=== PATIENT | female | born 1965 | race Caucasian/White ===

== ENCOUNTER 2018-01-29 20:18 | Observation (INO) | payer OTHER ==
[2018-01-29 22:20] LABS: Glucose,Whole Blood 166 mg/dL (75-99)
[2018-01-29] MEDS ORDERED: ONDANSETRON 4 MG/2 ML VIAL IVP PRN (22:21)
[2018-01-29] MEDS ORDERED: ACETAMINOPHEN TAB 325 MG TAB PO PRN (22:21)
[2018-01-29] MEDS ORDERED: ALPRAZolam 0.25 MG TAB PO PRN (22:21)
[2018-01-29] MEDS ORDERED: NALOXONE 0.4 MG/ML 1 ML VIAL IV PRN (22:21)
[2018-01-29] MEDS ORDERED: TEMAZEPAM 15 MG CAP PO PRN (22:21)
[2018-01-29] MEDS ORDERED: VANCOMYCIN IV PER PHARMACY 1 EACH MISC MISCELLANE PRN (22:23)
[2018-01-29 22:48] LABS: Anisocytosis Slight; Basophils # (A) 0.1 k/uL (0-0.2); Basophils % (A) 1 %; Eosinophils # (A) 0.6 k/uL (0-0.7); Eosinophils % (A) 7 %; HGB 11.4 gm/dL (11.4-16.0); Lymphocytes # (A) 2.7 k/uL (1.0-4.8); Lymphocytes % (A) 31 %; MCH 27.9 pg (25.0-35.0); MCHC 32.5 g/dL (31.0-37.0); Mean Platelet Volume 8.9; Monocytes # (A) 0.6 k/uL (0-1.0); Monocytes % (A) 7 %; Neutrophils # (A) 4.5 k/uL (1.3-7.7); Neutrophils % (A) 52 %; Platelet Count 143 k/uL (150-450); RBC 4.07 m/uL (3.80-5.40); RDW 16.2 % (11.5-15.5); WBC 8.7 k/uL (3.8-10.6)
[2018-01-29 22:56] LABS: ALT 49 U/L (9-52); AST 52 U/L (14-36); Albumin 3.1 g/dL (3.5-5.0); Alkaline Phosphatase 102 U/L (38-126); Anion Gap 9 mmol/L; Blood Urea Nitrogen 16 mg/dL (7-17); Calcium 8.9 mg/dL (8.4-10.2); Carbon Dioxide 27 mmol/L (22-30); Chloride 102 mmol/L (98-107); Glucose 167 mg/dL (74-99); Potassium 4.1 mmol/L (3.5-5.1); Sodium 138 mmol/L (137-145); Total Bilirubin 0.8 mg/dL (0.2-1.3)
[2018-01-29] MEDS ORDERED: DOCUSATE 100 MG CAP PO PRN (23:09)
[2018-01-30] MEDS: LEVOFLOXACIN 500MG-D5W PMX 500 MG in DEXTROSE/WATER 1 100ML.BAG IVPB SCH ×2 (00:06→23:50)
[2018-01-30] MEDS: SODIUM CHLORIDE 0.9% 1,000 ML IV SCH ×2 (00:06→23:48)
[2018-01-30] MEDS: HEPARIN SODIUM,PORCINE 5,000 UNIT/ML 1 ML VIAL SQ SCH ×3 (00:07→21:56)
[2018-01-30 00:08] LABS: Appearance,Urine Clear (Clear); Bilirubin,Urine Negative (Negative); Blood,Urine Negative (Negative); Color,Urine Yellow; Glucose,Urine (UA) Negative (Negative); Ketones,Urine Negative (Negative); Leukocyte Esterase,Urine Negative (Negative); Nitrite,Urine Negative (Negative); PH, Urine 5.5 (5.0-8.0); Protein,Urine Negative (Negative); Specific Gravity,Urine 1.016 (1.001-1.035)
[2018-01-30] MEDS: VENLAFAXINE HCL 75 MG TAB PO SCH ×2 (00:11→21:56)
[2018-01-30] MEDS: DULoxetine HCL 60 MG CAPSULE.DR PO SCH ×3 (00:11→21:56)
[2018-01-30] MEDS: PREGABALIN 75 MG CAP PO SCH ×3 (00:11→21:55)
[2018-01-30] MEDS: GABAPENTIN 400 MG CAP PO SCH ×4 (00:11→21:56)
[2018-01-30] MEDS: ALPRAZolam 0.5 MG TAB PO SCH ×4 (00:11→21:56)
[2018-01-30] MEDS: VANCOMYCIN 2,000 MG in SODIUM CHLORIDE 0.9% 500 ML IVPB SCH ×2 (02:47→16:45)
--- NOTE | 2018-01-30 05:49 | HP ---
HISTORY AND PHYSICAL DATE OF SERVICE: 01/29/2018 CHIEF COMPLAINT: Bilateral heel ulcers. HISTORY OF PRESENT ILLNESS: This 53-year-old woman with a past medical history of diabetes, GERD, hypertension, DJD, history of depression, being followed by Dr. Sima Lopez in the outpatient setting presented to [facility] with complaints of bilateral heel ulcers. The patient apparently noted heel ulcers for the last 1 week which increase in severity. Patient also complaining of some pain also. The patient had limited mobility according to her. There is no history of any fever, rigors. No history of headache, loss of consciousness or seizures. Patient also had insulin pump being followed by Dr. Cid at this time. The patient was directly transferred to [facility] for further evaluation at this time. PAST MEDICAL HISTORY: Diabetes, GERD, hypertension, DJD, history of depression, section. MEDICATIONS: The medications are: 1. Zestril 10 mg p.o. daily. 2. Hydrochlorothiazide 25 mg p.o. daily. 3. Ranitidine 150 mg at bedtime. 4. Lyrica 75 mg p.o. b.i.d. 5. Pravachol 20 mg at bedtime. 6. Metformin 1000 mg p.o. b.i.d. 7. Venlafaxine 75 mg at bedtime. 8. Colace 100 mg daily p.r.n. 9. Cymbalta 60 mg p.o. b.i.d. 10.Neurontin 400 mg p.o. t.i.d. 11.Lasix 20 mg daily. 12.Abilify 5 mg p.o. b.i.d. 13.Xanax 0.5 t.i.d. 14.Victoza, dose unknown. ALLERGIES: CEPHALEXIN. FAMILY HISTORY: History of myocardial infarction in the family. SOCIAL HISTORY: Previous history of smoking. No history of current smoking or alcohol intake. REVIEW OF SYSTEMS: ENT: No diminished hearing or diminished vision. CARDIOVASCULAR: No angina. RESPIRATORY: No cough or hemoptysis. GI: No nausea. : No dysuria. NERVOUS SYSTEM: No numbness or weakness. ALLERGY/IMMUNOLOGY: No asthma or hayfever. MUSCULOSKELETAL: As mentioned earlier. HEMATOLOGY: No history anemia. ENDOCRINE: Diabetes mellitus. CONSTITUTIONAL: As mentioned earlier. DERMATOLOGY: As mentioned earlier RHEUMATOLOGY: Negative. PSYCHIATRIC: As mentioned earlier. PHYSICAL EXAMINATION: The patient is alert and oriented x3. Pulse is 81, blood pressure 131/66, respirations 16, temperature 98 degrees, pulse ox 97% on room air. HEENT: Conjunctivae normal. Oral mucosa moist. Neck is no jugular venous distention. No carotid bruit. No lymph node enlargement. CARDIOVASCULAR: S1 and S2, muffled. No S3, no S4. RESPIRATORY: Breath sounds diminished at the bases. A few scattered rhonchi. No crackles. ABDOMEN: Soft, obese, nontender. LEGS: Bilateral heel ulcers with some necrotic skin area also present. Some black discoloration also present. NERVOUS SYSTEM: Higher functions as mentioned earlier. Moves all 4 limbs. No focal motor deficit. LYMPHATICS: No lymphadenopathy of the neck, axillae or groin. SKIN: As mentioned earlier. JOINTS: No active deforming arthropathy. LABS: CBC within normal limits. Glucose 167. ASSESSMENT: 1. Bilateral heel ulcers with diabetic foot. 2. Diabetes mellitus type 2. 3. Gastroesophageal reflux disease. 4. Hypertension. 5. Degenerative joint disease. 6. Insulin pump. 7. Depression. 8. Super morbid obesity with a body mass index of 57.5. 9. History of depression. 10.History of nicotine dependence. RECOMMENDATIONS AND DISCUSSION: This 53-year-old woman who presented with multiple complex medical issues, we will monitor the patient closely. Continue the current medications. I would initiate broad- spectrum IV antibiotics and vancomycin will be continued. Will add Levaquin to the current regimen. Obtain cultures. Resume the home medications. Monitor blood sugars closely. DVT prophylaxis. We will consult Infectious Disease as well as Vascular Surgery. Guarded prognosis because of multiple complex medical issues. Further recommendation to follow. Copy of dictation forwarded to Sima Lopez who is following the patient in the outpatient setting. MMODL / IJN: [id number] / JAMIL
[2018-01-30 06:59] LABS: Glucose,Whole Blood 103 mg/dL (75-99)
[2018-01-30] MEDS: INSULIN ASPART 100 UNIT/ML 1 ML 10 ML VIAL SQ SCH ×4 (07:06→21:53)
[2018-01-30] MEDS: LISINOPRIL 10 MG TAB PO SCH (08:22)
[2018-01-30] MEDS: FUROSEMIDE 20 MG TAB PO SCH (08:22)
[2018-01-30] MEDS: metFORMIN 500 MG TAB PO SCH ×2 (08:22→21:56)
[2018-01-30] MEDS: ARIPiprazole 5 MG TAB PO SCH ×2 (08:22→21:56)
[2018-01-30] MEDS: HYDROCHLOROTHIAZIDE 25 MG TAB PO SCH (08:22)
[2018-01-30] MEDS: PANTOPRAZOLE 40 MG TABLET PO SCH (08:22)
[2018-01-30 08:51] LABS: Anisocytosis Slight; Basophils % (A) 0 %; Eosinophils # (A) 0.5 k/uL (0-0.7); Eosinophils % (A) 6 %; HCT 37.1 % (34.0-46.0); HGB 11.6 gm/dL (11.4-16.0); Lymphocytes # (A) 2.1 k/uL (1.0-4.8); Lymphocytes % (A) 25 %; MCH 27.5 pg (25.0-35.0); MCHC 31.3 g/dL (31.0-37.0); MCV 87.8 fL (80.0-100.0); Monocytes # (A) 0.5 k/uL (0-1.0); Monocytes % (A) 6 %; Neutrophils # (A) 5.1 k/uL (1.3-7.7); Neutrophils % (A) 61 %; Platelet Count 159 k/uL (150-450); RBC 4.22 m/uL (3.80-5.40); RDW 16.4 % (11.5-15.5); WBC 8.5 k/uL (3.8-10.6)
[2018-01-30 09:09] LABS: Anion Gap 8 mmol/L; Blood Urea Nitrogen 17 mg/dL (7-17); Calcium 8.9 mg/dL (8.4-10.2); Carbon Dioxide 29 mmol/L (22-30); Chloride 102 mmol/L (98-107); Glucose 94 mg/dL (74-99); Potassium 4.3 mmol/L (3.5-5.1); Sodium 139 mmol/L (137-145)
[2018-01-30 11:45] LABS: Glucose,Whole Blood 110 mg/dL (75-99)
[2018-01-30] MEDS: traMADol 50 MG TAB PO PRN ×2 (12:21→21:55)
[2018-01-30 13:27] LABS: Hemoglobin A1C 7.3 % (4.0-6.0)
[2018-01-30 13:52] VITALS: BMI 57.4
[2018-01-30] MEDS ORDERED: LIDOCAINE 1% (PF) 10MG/ML VIAL SQ STA (17:13)
[2018-01-30] MEDS ORDERED: LIDOCAINE 1% INJ 10MG/ML (20 ML MDV) SQ STA (17:23)
[2018-01-30 17:25] LABS: Glucose,Whole Blood 95 mg/dL (75-99)
[2018-01-30] MEDS: COLLAGENASE 250 UNIT/GM OINTMENT 30 GM TUBE TOPICAL SCH (17:59)
--- NOTE | 2018-01-30 18:02 | PN ---
PROGRESS NOTE DATE OF SERVICE: 01/30/2018 This 53-year-old woman was admitted with acute bilateral heel ulcers from diabetes, is being closely monitored. No chest pain or palpitations. broad-spectrum IV antibiotics. EXAM: Alert and oriented x3. Pulse 81, blood pressure 120/55, respirations 18, temperature 97.2, pulse ox 96% on room air. HEENT: Conjunctivae normal. Oral mucosa moist. NECK: No jugular venous distention. No carotid bruits. No lymph node enlargement. CARDIOVASCULAR: S1, S2 muffled. RESPIRATORY: Breath sounds diminished in the bases. No rhonchi. No crackles. ABDOMEN: Soft, obese. LEGS: Bilateral heel ulcers. NERVOUS SYSTEM: No focal deficits. LABS: WBC 8.5. ASSESSMENT: 1. Bilateral heel ulcers with diabetic foot. 2. Diabetes mellitus type 2. 3. Gastroesophageal reflux disease. 4. Hypertension. 5. History of degenerative joint disease. 6. Insulin pump. 7. Depression. 8. Morbid obesity with a body mass index of 57.5. 9. History of depression. 10.History of nicotine dependence. RECOMMENDATIONS AND DISCUSSION: Recommend to continue current medical management and continue with broad- spectrum IV antibiotics. Closely follow with Infectious Disease and follow up with Vascular Surgery as well. Otherwise, prognosis guarded because of multiple complex medical issues. Further recommendations to follow. MMODL / IJN: [id number] / MTDGale
--- NOTE | 2018-01-30 18:32 | CONS ---
CONSULTATION This is a 53-year-old female. She came with one week's duration of pressure ulcer, right heel. She has history of diabetes, obesity. The patient has been admitted and I was consulted. No history of trauma. MEDICAL HISTORY: History of diabetes, hypertension. PERSONAL HISTORY: ALLERGY to KEFLEX. On examination, neck is supple. Trachea is central. CHEST: Clear to auscultation. ABDOMEN: Soft. Brachial and radial pulses are present. Femoral pulses are present. Right heel has skin necrosis with some redness around the periwound area. The skin is necrotic and the measurement is 5 x 4 cm. PLAN: Debridement of the wound. Will take deep culture and use Santyl cream. MMODL / IJN: [id number] /
[2018-01-30 20:27] LABS: Glucose,Whole Blood 103 mg/dL (75-99)
[2018-01-30] MEDS: FAMOTIDINE 20 MG TAB PO SCH (21:56)
[2018-01-30] MEDS: PRAVASTATIN SODIUM 20 MG TAB PO SCH (21:56)
[2018-01-31] MEDS: VANCOMYCIN 2,000 MG in SODIUM CHLORIDE 0.9% 500 ML IVPB SCH ×2 (02:08→15:15)
[2018-01-31 02:33] LABS: Glucose,Whole Blood 60 mg/dL (75-99)
[2018-01-31 02:56] LABS: Glucose,Whole Blood 70 mg/dL (75-99)
--- NOTE | 2018-01-31 06:09 | CONS ---
CONSULTATION DATE OF SERVICE: 01/30/2018. REASON FOR CONSULTATION: Bilateral heel diabetic pressure ulcer with cellulitis. HISTORY OF PRESENT ILLNESS: The patient is a 53 -year-old female, morbidly obese with a past medical history significant for diabetes mellitus, presenting to the ER at the [facility] with bilateral heel ulcers. Apparently the patient noticed the ulcer about a week ago. The patient did not recall any new shoes or any change in the walking habits that has brought on those blisters or ulceration. With worsening of those areas and bilateral heel and subsequently currently 1 of those blisters opened on the right heel with drainage of some foul smelling secretion with subsequent swelling and redness surrounding the area with some dull aching pain 2 to 3 out of 10, and no radiation. The patient denies having any fever, rigors or chills. Subsequently, patient has been evaluated at that facility and has been transferred to the [facility] for further management of the same. Infectious Disease was consulted for recommendations regarding antibiotic therapy. REVIEW OF SYSTEMS: CONSTITUTIONAL: Positive for weakness. Denies any fever. Eyes no complaint. ENT no complaint. Respiratory no complaint. Cardiovascular no complaint. ENT is no complaint. Chest: No complaint. Gastrointestinal: No complaint. Musculoskeletal as per HPI. Integumentary as per HPI. Psychological no complaint. Endocrine no complaint. Neurologic no complaint. PAST MEDICAL HISTORY: Significant for diabetes mellitus, gastroesophageal reflux disease, hypertension , degenerative joint disease and depression. PAST SURGICAL HISTORY: . SOCIAL HISTORY: The patient denies drinking or drug use. Did have a remote history of smoking. FAMILY HISTORY: Positive for IA. ALLERGIES: CEPHALEXIN that make more of GI side effects. No history of rash. Clinically doubt true CEPHALEXIN ALLERGY. MEDICATION: Medications include the patient is currently on Tylenol, Xanax, Abilify, Santyl, Colace, Cymbalta, Pepcid, Lasix, Neurontin, heparin, hydrochlorothiazide, Levaquin, Zestril, Glucophage, Narcan, Pravachol, and vancomycin. EXAMINATION: Blood pressure is 129/55 with a pulse of 81, temperature 97.2. She is 93% on room air. General description is a middle aged female lying in bed in no distress. No tachypnea or accessory muscles of respiration use. HEENT: Shows no pallor or scleral icterus. Oral mucosa membranes dry. No pharyngeal erythema or thrush. Neck trachea central, no thyromegaly. Lungs unlabored breathing. Clear to auscultation anteriorly. No wheeze or crackles. Heart S1, S2. Regular rate and rhythm. ABDOMEN: Soft, no tenderness. No guarding or rigidity. Extremities: No edema of the feet. Examination of bilateral heel area did have a blisters with some necrotic area. Minimal surrounding erythema. Minimal foul smelling drainage. Neurological: Patient is awake, alert, oriented. Mood and affect normal. LABS: Hemoglobin 11.4, white count 8.5. BUN of 17, creatinine 0.58. DIAGNOSTIC IMPRESSION AND PLAN: 1. Patient with bilateral heel diabetic foot ulcer with secondary cellulitis with some foul-smelling drainage, likely polymicrobial infection. 2. Patient does have a CEPHALEXIN ALLERGY, more of gastrointestinal upset rather than true allergy. PLAN: 1. We will recommend surgical evaluation for debridement of this necrotic skin. For now we will apply dressing to be lightly applied. 2. The patient will continue on vancomycin, pharmacy to dose to continue while watching the kidney function closely along with Levaquin. 3. Depending upon clinical response as well as cultures, we will adjust her medications further if needed. Thank you for this consultation. We will follow this patient along with you. MMODL / IJN: [id number] / MTDD
[2018-01-31] MEDS: INSULIN PUMP MEAL BOLUS 1 UNIT MISC MISCELLANE SCH ×4 (07:00→21:03)
[2018-01-31 07:26] LABS: Glucose,Whole Blood 76 mg/dL (75-99)
[2018-01-31] MEDS: INSULIN ASPART 100 UNIT/ML 1 ML 10 ML VIAL SQ SCH (07:35)
[2018-01-31 07:36] LABS: Anisocytosis Slight; Basophils % (A) 1 %; Eosinophils # (A) 0.5 k/uL (0-0.7); Eosinophils % (A) 6 %; HCT 35.4 % (34.0-46.0); HGB 11.3 gm/dL (11.4-16.0); Lymphocytes # (A) 2.6 k/uL (1.0-4.8); Lymphocytes % (A) 31 %; MCH 27.7 pg (25.0-35.0); MCHC 31.8 g/dL (31.0-37.0); MCV 87.1 fL (80.0-100.0); Mean Platelet Volume 7.8; Monocytes # (A) 0.5 k/uL (0-1.0); Monocytes % (A) 5 %; Neutrophils # (A) 4.7 k/uL (1.3-7.7); Neutrophils % (A) 55 %; Platelet Count 162 k/uL (150-450); RBC 4.07 m/uL (3.80-5.40); RDW 16.4 % (11.5-15.5); WBC 8.5 k/uL (3.8-10.6)
[2018-01-31 07:53] LABS: Anion Gap 10 mmol/L; Blood Urea Nitrogen 20 mg/dL (7-17); Calcium 8.8 mg/dL (8.4-10.2); Carbon Dioxide 27 mmol/L (22-30); Chloride 102 mmol/L (98-107); Glucose 71 mg/dL (74-99); Sodium 139 mmol/L (137-145)
[2018-01-31] MEDS: metFORMIN 500 MG TAB PO SCH ×2 (07:56→21:07)
[2018-01-31] MEDS: FUROSEMIDE 20 MG TAB PO SCH (07:56)
[2018-01-31] MEDS: GABAPENTIN 400 MG CAP PO SCH ×3 (07:56→21:07)
[2018-01-31] MEDS: PANTOPRAZOLE 40 MG TABLET PO SCH (07:56)
[2018-01-31] MEDS: LISINOPRIL 10 MG TAB PO SCH (07:56)
[2018-01-31] MEDS: DULoxetine HCL 60 MG CAPSULE.DR PO SCH ×2 (07:56→21:07)
[2018-01-31] MEDS: HYDROCHLOROTHIAZIDE 25 MG TAB PO SCH (07:57)
[2018-01-31] MEDS: ALPRAZolam 0.5 MG TAB PO SCH ×3 (07:57→21:06)
[2018-01-31] MEDS: ARIPiprazole 5 MG TAB PO SCH ×2 (07:57→21:07)
[2018-01-31] MEDS: PREGABALIN 75 MG CAP PO SCH ×2 (07:58→21:06)
[2018-01-31] MEDS: HEPARIN SODIUM,PORCINE 5,000 UNIT/ML 1 ML VIAL SQ SCH ×2 (07:58→21:07)
--- NOTE | 2018-01-31 09:09 | PCN ---
PROCEDURE NOTE PREOP DIAGNOSIS: Pressure ulcer right heel with skin necrosis. PROCEDURE PERFORMED: Debridement of the right heel pressure ulcer under local. DESCRIPTION OF PROCEDURE: This patient has a history of skin necrosis of the right heel. She has history of diabetes, obesity. No history of trauma. The patient has a right heel skin necrosis. Measurement is 5 x 4 cm. 1% lidocaine was infiltrated. Using a sharp knife, we excised the skin and necrotic skin was removed by the sharp knife and there was some fibrinous material present in the heel area which was also excised. Underneath we found decent granulation tissue and took the deep culture, sent for culture and sensitivity. The wound was copiously irrigated with the saline. Then Santyl cream applied to the wound and pressure and dressing was applied. The patient tolerated the procedure well. No blood loss noted. There was good hemostasis. PLAN: We continue with Santyl cream and patient is on IV antibiotic under care of Infectious Disease. When patient goes home, will follow in the wound clinic. The patient will need a total contact cast. MMODL / IJN: [id number] /
[2018-01-31 10:07] LABS: Glucose,Whole Blood 124 mg/dL (75-99)
[2018-01-31] MEDS: COLLAGENASE 250 UNIT/GM OINTMENT 30 GM TUBE TOPICAL SCH (11:15)
[2018-01-31 11:43] LABS: Glucose,Whole Blood 122 mg/dL (75-99)
[2018-01-31] MEDS ORDERED: INSULIN ASPART 100 UNIT/ML 1 ML 10 ML VIAL SQ PRN (14:48)
[2018-01-31] MEDS ORDERED: INSULIN PUMP BASAL RATES 1 EACH MISC MISCELLANE PRN (14:48)
[2018-01-31 17:15] LABS: Glucose,Whole Blood 114 mg/dL (75-99)
--- NOTE | 2018-01-31 19:57 | PN ---
PROGRESS NOTE DATE OF SERVICE: 01/31/2018 This 53-year-old woman was admitted with bilateral heel ulcers, is being closely monitored at this time. The patient is on broad-spectrum IV antibiotics. Dr. Mcdonald has performed debridement of the right heel ulcer under local anesthesia. Otherwise, the patient is also seen by Infectious Disease, Dr. Garrett. The necrotic skin has been removed and the patient is currently on IV Levaquin and vancomycin as mentioned earlier. The culture showed group D Enterococcus and gram-negative as at this time. No chest pain. No palpitations. No fever. EXAM: Alert and oriented x3. Pulse is 80, blood pressure 127/60, respirations 18, temperature 97.9, pulse ox 94% on room air. HEENT: Conjunctivae normal. NECK: No jugular venous distention. CARDIOVASCULAR: S1, S2 muffled. RESPIRATORY: Breath sounds diminished in the bases. No rhonchi. No crackles. ABDOMEN: Soft, nontender. LEGS: No edema. No swelling. Otherwise, bilateral heel ulcers NERVOUS SYSTEM: No focal deficits. LABS: WBC 8.2, hemoglobin is 11.3. Accu-Cheks noted. ASSESSMENT: 1. Bilateral heel ulcers with diabetic feet with culture showing group D Enterococcus and gram-negative bacilli. 2. Diabetes mellitus type 2. 3. Gastroesophageal reflux disease. 4. Hypertension. 5. History of degenerative joint disease. 6. Insulin pump. 7. Depression. 8. Morbid obesity with a body mass index of 57.5. 9. History of depression. 10.History of nicotine dependence. RECOMMENDATIONS AND DISCUSSION: Recommend to continue current medical management and continue symptomatic treatment. Continue with the IV antibiotics. Continue with the local treatment. Otherwise will continue to follow with Infectious Disease as well as Vascular Surgery. Guarded prognosis because of multiple complex medical issues. Further recommendations to follow. MMODL / IJN: [id number] /
[2018-01-31] MEDS: traMADol 50 MG TAB PO PRN (21:06)
[2018-01-31] MEDS: FAMOTIDINE 20 MG TAB PO SCH (21:07)
[2018-01-31] MEDS: PRAVASTATIN SODIUM 20 MG TAB PO SCH (21:07)
[2018-01-31] MEDS: VENLAFAXINE HCL 75 MG TAB PO SCH (21:07)
[2018-01-31 21:18] LABS: Glucose,Whole Blood 72 mg/dL (75-99)
--- NOTE | 2018-01-31 22:54 | PN ---
PROGRESS NOTE DATE OF SERVICE: 01/31/2018. REASON FOR FOLLOWUP: Bilateral diabetic foot ulcer. INTERVAL HISTORY: The patient is afebrile. She is breathing comfortably. Denies having any chest pain, shortness of breath, cough. No abdominal pain or any pain to the bilateral heel wound area. EXAMINATION: Blood pressure is 127/60 with a pulse of 80, temperature 97.9. She is 94% on room air. General description is a middle-aged female lying in bed in no distress. Respiratory system: Unlabored breathing. Clear to auscultation anteriorly. HEART: S1, S2. Regular rate and rhythm. Abdomen soft, no tenderness. Heel wounds are currently dressed up. No obvious drainage on the dressing. LABS: White count is 8.5, creatinine 0.77. Wound culture with Streptococcus Agalactiae and Group B enterococcus. DIAGNOSTIC IMPRESSION AND PLAN: Patient with bilateral heel diabetic foot ulcer with skin cellulitis with cultures did show Streptococcus agalactiae in a patient currently covered with Levaquin and vancomycin because of present allergy. We will wait for culture and sensitivity to determine discharge antibiotics. Continue wound care per Surgery. Continue supportive care. MMODL / IJN: [id number] / JAMIL
[2018-01-31] MEDS: LEVOFLOXACIN 500MG-D5W PMX 500 MG in DEXTROSE/WATER 1 100ML.BAG IVPB SCH (23:20)
[2018-01-31] MEDS: SODIUM CHLORIDE 0.9% 1,000 ML IV SCH (23:37)
[2018-02-01 02:03] LABS: Glucose,Whole Blood 66 mg/dL (75-99)
[2018-02-01 02:29] LABS: Glucose,Whole Blood 66 mg/dL (75-99)
[2018-02-01] MEDS: VANCOMYCIN 2,000 MG in SODIUM CHLORIDE 0.9% 500 ML IVPB SCH ×2 (02:37→16:33)
[2018-02-01 02:43] LABS: Glucose,Whole Blood 80 mg/dL (75-99)
[2018-02-01 07:34] LABS: Glucose,Whole Blood 76 mg/dL (75-99)
[2018-02-01] MEDS: ALPRAZolam 0.5 MG TAB PO SCH ×3 (07:59→21:28)
[2018-02-01] MEDS: GABAPENTIN 400 MG CAP PO SCH ×2 (07:59→16:32)
[2018-02-01] MEDS: metFORMIN 500 MG TAB PO SCH ×2 (08:00→21:28)
[2018-02-01] MEDS: HEPARIN SODIUM,PORCINE 5,000 UNIT/ML 1 ML VIAL SQ SCH ×2 (08:00→21:28)
[2018-02-01] MEDS: COLLAGENASE 250 UNIT/GM OINTMENT 30 GM TUBE TOPICAL SCH (08:00)
[2018-02-01] MEDS: FUROSEMIDE 20 MG TAB PO SCH (08:00)
[2018-02-01] MEDS: DULoxetine HCL 60 MG CAPSULE.DR PO SCH ×2 (08:00→21:28)
[2018-02-01] MEDS: ARIPiprazole 5 MG TAB PO SCH ×2 (08:00→21:28)
[2018-02-01] MEDS: PANTOPRAZOLE 40 MG TABLET PO SCH (08:00)
[2018-02-01] MEDS: LISINOPRIL 10 MG TAB PO SCH (08:01)
[2018-02-01] MEDS: HYDROCHLOROTHIAZIDE 25 MG TAB PO SCH (08:01)
[2018-02-01] MEDS: INSULIN PUMP MEAL BOLUS 1 UNIT MISC MISCELLANE SCH ×4 (08:02→21:28)
[2018-02-01] MEDS: PREGABALIN 75 MG CAP PO SCH ×2 (08:04→21:28)
[2018-02-01 08:46] LABS: Anisocytosis Slight; Basophils # (A) 0.1 k/uL (0-0.2); Basophils % (A) 1 %; Eosinophils # (A) 0.6 k/uL (0-0.7); Eosinophils % (A) 8 %; HCT 35.7 % (34.0-46.0); HGB 11.5 gm/dL (11.4-16.0); Lymphocytes # (A) 2.4 k/uL (1.0-4.8); Lymphocytes % (A) 28 %; MCH 28.1 pg (25.0-35.0); MCHC 32.2 g/dL (31.0-37.0); MCV 87.2 fL (80.0-100.0); Monocytes # (A) 0.5 k/uL (0-1.0); Monocytes % (A) 6 %; Neutrophils # (A) 4.8 k/uL (1.3-7.7); Neutrophils % (A) 56 %; Platelet Count 162 k/uL (150-450); RBC 4.09 m/uL (3.80-5.40); RDW 16.4 % (11.5-15.5); WBC 8.6 k/uL (3.8-10.6)
[2018-02-01 09:07] LABS: Anion Gap 11 mmol/L; Blood Urea Nitrogen 19 mg/dL (7-17); Carbon Dioxide 26 mmol/L (22-30); Chloride 103 mmol/L (98-107); Glucose 95 mg/dL (74-99); Potassium 4.1 mmol/L (3.5-5.1); Sodium 140 mmol/L (137-145)
[2018-02-01 11:52] LABS: Glucose,Whole Blood 113 mg/dL (75-99)
[2018-02-01] MEDS ORDERED: VANCOMYCIN TROUGH DUE 1 EACH MISC MISCELLANE ONE (13:00)
[2018-02-01 16:43] LABS: Glucose,Whole Blood 73 mg/dL (75-99)
--- NOTE | 2018-02-01 19:07 | PN ---
PROGRESS NOTE DATE OF SERVICE: 02/01/2018 This 53-year-old woman admitted with bilateral heel ulcers, had multiple organisms grown from the culture including group D Enterococcus and as well agalactiae and also gram-negative bacilli. No chest pain. No palpitations. No fever. Infectious disease and Vascular Surgery are following the patient closely. PHYSICAL EXAM: Alert and oriented times three. Pulse 80. Blood pressure 125/60, respirations 16, temperature 97.9, pulse ox 97% on room air. HEENT: Conjunctivae normal. Oral mucosa moist. Neck is no jugular venous distention. No carotid bruit. No lymph node enlargement. Cardiovascular: S1, S2 muffled. No S3. No S4. RESPIRATORY: Breath sounds diminished in the bases. A few scattered rhonchi and crackles. ABDOMEN: Soft nontender, obese. LEGS: No edema. No swelling. CENTRAL NERVOUS SYSTEM: No focal deficits. EXTREMITIES: Bilateral heel ulcers present. LABS: WBC 8.2, hemoglobin 11.5, glucose 113. ASSESSMENT: 1. Bilateral heel ulcers with diabetic feet with culture showing Group D enterococcus and gram-negative bacilli, Enterobacter cloacae. 2. Diabetes type 2. 3. Gastroesophageal reflux disease. 4. Hypertension. 5. History of degenerative joint disease. 6. History insulin pump. 7. Depression. 8. Morbid obesity with body mass index of 57.5. 9. History of depression. 10.History of nicotine dependence. RECOMMENDATIONS AND DISCUSSION: Recommend to continue current medications. Continue to monitor and symptomatic treatment. Otherwise, at this time, I recommend continue with the antibiotics and strep agalactiae group B and as well as Group D enterococcus has been noted and the Enterobacter cloacae seems to be sensitive to multiple antibiotics. We will continue to monitor and further recommendations to follow. Possibly home with antibiotics. MMODL / IJN: [id number] / JAMIL
[2018-02-01 20:12] LABS: Glucose,Whole Blood 154 mg/dL (75-99)
[2018-02-01] MEDS: traMADol 50 MG TAB PO PRN (20:35)
[2018-02-01] MEDS: FAMOTIDINE 20 MG TAB PO SCH (21:28)
[2018-02-01] MEDS: PRAVASTATIN SODIUM 20 MG TAB PO SCH (21:28)
[2018-02-01] MEDS: VENLAFAXINE HCL 75 MG TAB PO SCH (21:28)
[2018-02-01] MEDS: LEVOFLOXACIN 500MG-D5W PMX 500 MG in DEXTROSE/WATER 1 100ML.BAG IVPB SCH (23:48)
--- NOTE | 2018-02-02 00:10 | PN ---
PROGRESS NOTE DATE OF SERVICE: 02/01/2018. REASON FOR FOLLOWUP: Diabetic foot ulcer with secondary cellulitis. INTERVAL HISTORY: The patient is afebrile. She is breathing comfortably. Denies any chest pain, shortness of breath, abdominal pain, or any worsening pain to the bilateral foot wound area. EXAMINATION: Blood pressure 125/74 with a pulse of 73, temperature 97.4. She is 97% on room air. GENERAL DESCRIPTION: Elderly female, up in the bed in no distress. RESPIRATORY SYSTEMS: Unlabored breathing. Clear to auscultation anteriorly. HEART: Heart S1, S2. Regular rate and rhythm. ABDOMEN: Abdomen soft. EXTREMITIES: Bilateral heel wound with no obvious drainage on the dressing. LABS: Wound culture with Enterobacter, Enterococcus currently pending. DIAGNOSTIC IMPRESSION AND PLAN: Patient with bilateral heel diabetic foot ulcer with secondary cellulitis, currently covered with vancomycin and Levaquin. Sensitivities pending. If sensitive, will be able to switch to oral antibiotic. Continue supportive care. MMODL / IJN: [id number] /
[2018-02-02] MEDS: SODIUM CHLORIDE 0.9% 1,000 ML IV SCH (02:03)
[2018-02-02 02:16] LABS: Glucose,Whole Blood 95 mg/dL (75-99)
[2018-02-02 05:13] VITALS: BP 138/67; PULSE 82; RESP 18; TEMP 98.6
[2018-02-02] MEDS ORDERED: VANCOMYCIN 2,000 MG in SODIUM CHLORIDE 0.9% 500 ML IVPB SCH (08:00)
[2018-02-02 08:10] LABS: Glucose,Whole Blood 96 mg/dL (75-99)
[2018-02-02] MEDS: INSULIN PUMP MEAL BOLUS 1 UNIT MISC MISCELLANE SCH ×2 (08:31→13:14)
[2018-02-02] MEDS: ARIPiprazole 5 MG TAB PO SCH (08:48)
[2018-02-02] MEDS: ALPRAZolam 0.5 MG TAB PO SCH (08:48)
[2018-02-02] MEDS: PANTOPRAZOLE 40 MG TABLET PO SCH (08:48)
[2018-02-02] MEDS: COLLAGENASE 250 UNIT/GM OINTMENT 30 GM TUBE TOPICAL SCH ×2 (08:49→11:21)
[2018-02-02] MEDS: DULoxetine HCL 60 MG CAPSULE.DR PO SCH (08:50)
[2018-02-02] MEDS: HYDROCHLOROTHIAZIDE 25 MG TAB PO SCH (08:51)
[2018-02-02] MEDS: GABAPENTIN 400 MG CAP PO SCH (08:51)
[2018-02-02] MEDS: FUROSEMIDE 20 MG TAB PO SCH (08:51)
[2018-02-02] MEDS: HEPARIN SODIUM,PORCINE 5,000 UNIT/ML 1 ML VIAL SQ SCH (08:51)
[2018-02-02] MEDS: LISINOPRIL 10 MG TAB PO SCH (08:52)
[2018-02-02] MEDS: metFORMIN 500 MG TAB PO SCH (08:52)
[2018-02-02] MEDS: traMADol 50 MG TAB PO PRN (08:52)
[2018-02-02] MEDS: PREGABALIN 75 MG CAP PO SCH (09:03)
[2018-02-02 09:24] LABS: Anisocytosis Slight; Basophils % (A) 0 %; Eosinophils # (A) 0.6 k/uL (0-0.7); Eosinophils % (A) 7 %; HCT 35.2 % (34.0-46.0); HGB 11.5 gm/dL (11.4-16.0); Lymphocytes # (A) 2.7 k/uL (1.0-4.8); Lymphocytes % (A) 30 %; MCH 28.7 pg (25.0-35.0); MCHC 32.7 g/dL (31.0-37.0); MCV 87.7 fL (80.0-100.0); Mean Platelet Volume 7.9; Monocytes # (A) 0.6 k/uL (0-1.0); Monocytes % (A) 6 %; Neutrophils # (A) 4.9 k/uL (1.3-7.7); Neutrophils % (A) 54 %; Platelet Count 174 k/uL (150-450); RBC 4.02 m/uL (3.80-5.40); RDW 16.6 % (11.5-15.5); WBC 9.1 k/uL (3.8-10.6)
[2018-02-02 09:47] LABS: Anion Gap 9 mmol/L; Blood Urea Nitrogen 17 mg/dL (7-17); Calcium 9.1 mg/dL (8.4-10.2); Carbon Dioxide 26 mmol/L (22-30); Chloride 104 mmol/L (98-107); Glucose 94 mg/dL (74-99); Potassium 4.2 mmol/L (3.5-5.1); Sodium 139 mmol/L (137-145)
[2018-02-02 11:41] LABS: Glucose,Whole Blood 208 mg/dL (75-99)
--- NOTE | 2018-02-02 14:32 | PN ---
PROGRESS NOTE DATE OF SERVICE: 02/02/2018 REASON FOR FOLLOWUP: Bilateral heel diabetic foot ulcers. INTERVAL HISTORY: The patient is currently afebrile. She is breathing comfortably. Denies having any chest pain or shortness of no pain or slough. No pain to the bilateral heel area and no diarrhea. PHYSICAL EXAMINATION: Her blood pressure is 138/67 with a pulse of 82, temperature is 97.6, she is 94 on room air. General description is a middle-aged female, up in the bed in no distress. RESPIRATORY SYSTEM: Unlabored breathing, clear to auscultation anteriorly. HEART: S1, S2. Regular rate and rhythm. ABDOMEN: Soft, no tenderness. Bilateral heel wound looks clean with no slough tissue. LABS: Wound culture finalized with Enterococcus faecalis, Enterobacter. DIAGNOSTIC IMPRESSION AND PLAN: Patient with bilateral heel diabetic pressure ulcer. Plan at this time, local wound care will be switched to Aquacel Silver dressing to be changed q.24-48 hours. Patient is [facility]. Antibiotic will be switched to Augmentin and Cipro for about 10 days, a script was sent to the Pharmacy. Continue supportive care. MMODL / IJN: [id number] /
--- NOTE | 2018-02-02 17:14 | DS ---
DISCHARGE SUMMARY DATE OF SERVICE: 02/02/2018. FINAL DIAGNOSES: 1. Bilateral heel ulcers with diabetic feet with culture showing group B Enterococcus and as well as Enterobacter cloacae. 2. Diabetes mellitus type 2. 3. Gastroesophageal reflux disease. 4. Hypertension. 5. History of degenerative joint disease. 6. History insulin pump. 7. History of depression. 8. Morbid obesity with body mass index 57.5. 9. History of nicotine dependence. DISCHARGE DISPOSITION: The patient is being discharged in stable condition with guarded prognosis. HISTORY OF PRESENT ILLNESS: This 53-year-old woman with past medical history of multiple medical problems was admitted with diabetic ulcers and multiple organisms have grown from the cultures. Dr. Mcdonald saw the patient. Debridement was done by Dr. Garrett who also the patient. Vitals are stable. Cardiovascular: S1, S2. Abdomen: Soft. Nervous System: No focal deficits. DISCHARGE ADVICE: 1. Diet is consistent carb. 2. Activity limited until followup. 3. Follow up with Dr. Sima Lopez in 2-3 days. 4. Follow with Dr. Garrett as advised. 5. Follow with Dr. Mcdonald as advised. MEDICATIONS: 1. Xanax 0.5 mg t.i.d. 2. Augmentin 875 mg 1 p.o. b.i.d. for 10 days. 3. Abilify 5 mg p.o. daily. 4. Cipro 500 mg p.o. b.i.d. for 10 days. 5. Colace 100 mg p.o. daily. 6. Cymbalta 60 mg p.o. b.i.d. 7. Lasix 20 mg daily. 8. Neurontin 400 mg t.i.d. 9. Hydrochlorothiazide 25 mg p.o. daily. 10.[place] 10 mg q.6h p.r.n. 11.Humalog scale. Humalog to be adjusted according to the pump. 12.Zestril 10 mg p.o. daily. 13.Metformin 1000 mg p.o. b.i.d. 14.Nystatin 1 application topically daily. 15.Omeprazole 40 mg daily. 16.Zofran 4 mg q.8h p.r.n. 17.Zocor 20 mg q.h.s. 18.Lyrica 75 mg p.o. b.i.d. 19.Ranitidine 150 mg q.h.s. 20.Effexor 75 mg p.o. q.h.s. Once again the patient is discharged in stable condition with guarded prognosis. MMODL / IJN: [id number] /
[2018-02-03] MEDS ORDERED: LEVOFLOXACIN 500 MG TAB PO SCH
== END 2018-02-02 14:49 | disposition home health service (06) ==
LOC: 5MS5E 22:15 → INTOOBSV 22:15 → UNDODISIN 02-02 14:49
PROVIDERS: ADMIT Hospitalist; ATTEND Hospitalist
PROC: 0HBMXZZ Excision of Right Foot Skin, External Approach (ICD-10-PCS; principal; 2018-01-31)
DX: E11.621 Type 2 diabetes mellitus with foot ulcer (principal); Z68.43 Body mass index [BMI] 50.0-59.9, adult; L03.116 Cellulitis of left lower limb; L03.115 Cellulitis of right lower limb; E66.01 Morbid (severe) obesity due to excess calories; L89.612 Pressure ulcer of right heel, stage 2; L89.622 Pressure ulcer of left heel, stage 2; B95.2 Enterococcus as the cause of diseases classified elsewhere; I10 Essential (primary) hypertension; K21.9 Gastro-esophageal reflux disease without esophagitis; F32.9 Major depressive disorder, single episode, unspecified; M19.91 Primary osteoarthritis, unspecified site; Z71.3 Dietary counseling and surveillance; Z79.4 Long term (current) use of insulin; Z79.899 Other long term (current) drug therapy; Z96.41 Presence of insulin pump (external) (internal); Z87.891 Personal history of nicotine dependence; Z88.1 Allergy status to other antibiotic agents; Z82.49 Family history of ischemic heart disease and other diseases of the circulatory system
CPT/HCPCS: 97597; 96365; 96366 ×4; 96367; 96372 ×4; 96375; 93005; 80053; 80048 ×4; 85025 ×5; 80202; 81003; 87070 ×2; 87205 ×2; 87077; 87186; 83036; G0378 ×5; G0379; J3370 ×4; J1644 ×4; J2405; J1956 ×3

== ENCOUNTER 2019-12-06 15:27 | Inpatient (IN) | payer MEDICARE, OTHER ==
--- NOTE | 2019-12-06 15:44 | ED ---
Weakness HPI - General Stated complaint: Weakness/ Altered Time Seen by Provider: 12/06/19 15:37 Source: RN notes reviewed, old records reviewed Mode of arrival: EMS Limitations: altered mental status - History of Present Illness MD Complaint: generalized weakness, lack of energy -: unknown Severity: moderate Severity scale (1-10): 5 Quality: aching Consistency: constant Improves with: none Context: recent illness, history of similar Associated Symptoms: confusion, nausea/vomiting, shortness of breath - Related Data Home Medications Medication Instructions Recorded Confirmed ALPRAZolam [Xanax] 0.5 mg PO TID 01/29/18 12/06/19 ARIPiprazole [Abilify] 5 mg PO DAILY 01/29/18 12/06/19 DULoxetine HCL [Cymbalta] 60 mg PO BID 01/29/18 12/06/19 Gabapentin [Neurontin] 400 mg PO TID 01/29/18 12/06/19 Lisinopril [Zestril] 10 mg PO DAILY 01/29/18 12/06/19 Ondansetron [Zofran] 4 mg PO Q8HR PRN 01/29/18 12/06/19 Pravastatin Sodium [Pravachol] 20 mg PO HS 01/29/18 12/06/19 metFORMIN HCL 1,000 mg PO BID 01/29/18 12/06/19 Famotidine 40 mg PO DAILY 12/06/19 12/06/19 HYDROcodone/APAP 7.5-325MG [[place] 1 tab PO TID PRN 12/06/19 12/06/19 7.5-325] Humulin R 500u/Ml Vial (Pump) 2.3 unit SQ CONTINUOUS 12/06/19 12/06/19 Isosorbide Dinitrate 10 mg PO BID 12/06/19 12/06/19 Liraglutide [Victoza 2-Brenden] 1.8 mg SQ DAILY 12/06/19 12/07/19 Pioglitazone HCl 15 mg PO DAILY 12/06/19 12/06/19 Previous Rx's Medication Instructions Recorded Amoxicillin/Potassium Clav 1 tab PO Q12HR #10 tab 12/09/19 [Augmentin 875-125 Tablet] Nystatin 100,000 Unit/gm Powd 1 applic TOPICAL BID applic 12/09/19 [Mycostatin Powder] Sodium Bicarbonate Tab 650 mg PO TID #30 tab 12/09/19 Allergies Allergy/AdvReac Type Severity Reaction Status Date / Time cephalexin monohydrate AdvReac Nausea & Verified 12/06/19 18:32 [From Keflex] Vomiting Review of Systems ROS Statement: Those systems with pertinent positive or pertinent negative responses have been documented in the HPI. ROS Other: All systems not noted in ROS Statement are negative. Past Medical History Past Medical History: Diabetes Mellitus, GERD/Reflux, Hypertension, Osteoarthritis (OA) Additional Past Medical History / Comment(s): Depression. Super morbid obesity History of Any Multi-Drug Resistant Organisms: None Reported Past Surgical History: Section, Cholecystectomy, Hernia Repair, Hysterectomy Past Anesthesia/Blood Transfusion Reactions: No Reported Reaction Past Psychological History: Depression Smoking Status: Former smoker Past Alcohol Use History: None Reported Past Drug Use History: None Reported - Past Family History Mother Family Medical History: Myocardial Infarction ([place]) Father Family Medical History: Cancer General Exam Limitations: altered mental status General appearance: alert, anxious, lethargic, in distress Head exam: Present: atraumatic, normocephalic, normal inspection Eye exam: Present: normal appearance, PERRL, EOMI. Absent: scleral icterus, conjunctival injection, periorbital swelling ENT exam: Present: normal exam, mucous membranes moist Neck exam: Present: normal inspection. Absent: tenderness, meningismus, lymphadenopathy Respiratory exam: Present: normal lung sounds bilaterally. Absent: respiratory distress, wheezes, rales, rhonchi, stridor Cardiovascular Exam: Present: regular rate, normal rhythm, normal heart sounds. Absent: systolic murmur, diastolic murmur, rubs, gallop, clicks GI/Abdominal exam: Present: soft, normal bowel sounds. Absent: distended, tenderness, guarding, rebound, rigid Extremities exam: Present: normal inspection, full ROM, normal capillary refill. Absent: tenderness, pedal edema, joint swelling, calf tenderness Back exam: Present: normal inspection Neurological exam: Present: alert, oriented X3, CN II-XII intact Psychiatric exam: Present: normal affect, normal mood Skin exam: Present: warm, dry, intact, normal color. Absent: rash Course Vital Signs 12/06/19 12/06/19 12/06/19 15:35 15:51 16:52 Temperature 99.0 F Pulse Rate 75 76 Respiratory 18 20 16 Rate Blood Pressure 129/66 120/61 O2 Sat by Pulse 96 96 Oximetry 12/06/19 12/06/19 12/06/19 19:00 19:49 20:55 Temperature 98.7 F 98.5 F Pulse Rate 81 83 Respiratory 18 18 Rate Blood Pressure 139/65 134/59 O2 Sat by Pulse 98 95 Oximetry EKG Findings - EKG Comments: EKG Findings:: EKG shows sinus rhythm of 75, MT 150, QRS 84, QTc 462 Medical Decision Making - Lab Data Result diagrams: 12/09/19 08:50 12/09/19 08:50 Lab Results 12/06/19 12/06/19 12/06/19 Range/Units 16:11 16:11 16:11 WBC 18.5 H (3.8-10.6) k/uL RBC 3.58 L (3.80-5.40) m/uL Hgb 9.4 L (11.4-16.0) gm/dL Hct 30.0 L (34.0-46.0) % MCV 83.8 (80.0-100.0) fL MCH 26.4 (25.0-35.0) pg MCHC 31.5 (31.0-37.0) g/dL RDW 18.2 H (11.5-15.5) % Plt Count 177 (150-450) k/uL Neutrophils % 85 % Lymphocytes % 10 % Monocytes % 3 % Eosinophils % 1 % Basophils % 0 % Neutrophils # 15.6 H (1.3-7.7) k/uL Lymphocytes # 1.9 (1.0-4.8) k/uL Monocytes # 0.5 (0-1.0) k/uL Eosinophils # 0.1 (0-0.7) k/uL Basophils # 0.0 (0-0.2) k/uL Hypochromasia Moderate Anisocytosis Slight PT 13.4 H (9.0-12.0) sec INR 1.3 H (<1.2) APTT 24.8 (22.0-30.0) sec Sodium 134 L (137-145) mmol/L Potassium 5.2 H (3.5-5.1) mmol/L Chloride 102 (98-107) mmol/L Carbon Dioxide 23 (22-30) mmol/L Anion Gap 9 mmol/L BUN 40 H (7-17) mg/dL Creatinine 1.68 H (0.52-1.04) mg/dL Est GFR (CKD-EPI)AfAm 39 (>60 ml/min/1.73 sqM) Est GFR (CKD-EPI)NonAf 34 (>60 ml/min/1.73 sqM) Glucose 176 H (74-99) mg/dL Lactic Ac Sepsis Rflx Plasma Lactic Acid Pato (0.7-2.0) mmol/L Calcium 8.2 L (8.4-10.2) mg/dL Phosphorus 4.1 (2.5-4.5) mg/dL Magnesium 1.5 L (1.6-2.3) mg/dL Total Bilirubin 1.3 (0.2-1.3) mg/dL AST 27 (14-36) U/L ALT 15 (4-34) U/L Alkaline Phosphatase 134 H (38-126) U/L Creatine Kinase 162 H (30-135) U/L Troponin I (0.000-0.034) ng/mL NT-Pro-B Natriuret Pep pg/mL Total Protein 7.7 (6.3-8.2) g/dL Albumin 2.7 L (3.5-5.0) g/dL Coronavirus (PCR) (Not Detectd) 12/06/19 12/06/19 12/06/19 Range/Units 16:11 16:11 16:11 WBC (3.8-10.6) k/uL RBC (3.80-5.40) m/uL Hgb (11.4-16.0) gm/dL Hct (34.0-46.0) % MCV (80.0-100.0) fL MCH (25.0-35.0) pg MCHC (31.0-37.0) g/dL RDW (11.5-15.5) % Plt Count (150-450) k/uL Neutrophils % % Lymphocytes % % Monocytes % % Eosinophils % % Basophils % % Neutrophils # (1.3-7.7) k/uL Lymphocytes # (1.0-4.8) k/uL Monocytes # (0-1.0) k/uL Eosinophils # (0-0.7) k/uL Basophils # (0-0.2) k/uL Hypochromasia Anisocytosis PT (9.0-12.0) sec INR (<1.2) APTT (22.0-30.0) sec Sodium (137-145) mmol/L Potassium (3.5-5.1) mmol/L Chloride (98-107) mmol/L Carbon Dioxide (22-30) mmol/L Anion Gap mmol/L BUN (7-17) mg/dL Creatinine (0.52-1.04) mg/dL Est GFR (CKD-EPI)AfAm (>60 ml/min/1.73 sqM) Est GFR (CKD-EPI)NonAf (>60 ml/min/1.73 sqM) Glucose (74-99) mg/dL Lactic Ac Sepsis Rflx Plasma Lactic Acid Pato 2.3 H* (0.7-2.0) mmol/L Calcium (8.4-10.2) mg/dL Phosphorus (2.5-4.5) mg/dL Magnesium (1.6-2.3) mg/dL Total Bilirubin (0.2-1.3) mg/dL AST (14-36) U/L ALT (4-34) U/L Alkaline Phosphatase (38-126) U/L Creatine Kinase (30-135) U/L Troponin I <0.012 (0.000-0.034) ng/mL NT-Pro-B Natriuret Pep 1650 pg/mL Total Protein (6.3-8.2) g/dL Albumin (3.5-5.0) g/dL Coronavirus (PCR) (Not Detectd) 12/06/19 12/06/19 Range/Units 16:11 16:44 WBC (3.8-10.6) k/uL RBC (3.80-5.40) m/uL Hgb (11.4-16.0) gm/dL Hct (34.0-46.0) % MCV (80.0-100.0) fL MCH (25.0-35.0) pg MCHC (31.0-37.0) g/dL RDW (11.5-15.5) % Plt Count (150-450) k/uL Neutrophils % % Lymphocytes % % Monocytes % % Eosinophils % % Basophils % % Neutrophils # (1.3-7.7) k/uL Lymphocytes # (1.0-4.8) k/uL Monocytes # (0-1.0) k/uL Eosinophils # (0-0.7) k/uL Basophils # (0-0.2) k/uL Hypochromasia Anisocytosis PT (9.0-12.0) sec INR (<1.2) APTT (22.0-30.0) sec Sodium (137-145) mmol/L Potassium (3.5-5.1) mmol/L Chloride (98-107) mmol/L Carbon Dioxide (22-30) mmol/L Anion Gap mmol/L BUN (7-17) mg/dL Creatinine (0.52-1.04) mg/dL Est GFR (CKD-EPI)AfAm (>60 ml/min/1.73 sqM) Est GFR (CKD-EPI)NonAf (>60 ml/min/1.73 sqM) Glucose (74-99) mg/dL Lactic Ac Sepsis Rflx Y Plasma Lactic Acid Pato (0.7-2.0) mmol/L Calcium (8.4-10.2) mg/dL Phosphorus (2.5-4.5) mg/dL Magnesium (1.6-2.3) mg/dL Total Bilirubin (0.2-1.3) mg/dL AST (14-36) U/L ALT (4-34) U/L Alkaline Phosphatase (38-126) U/L Creatine Kinase (30-135) U/L Troponin I (0.000-0.034) ng/mL NT-Pro-B Natriuret Pep pg/mL Total Protein (6.3-8.2) g/dL Albumin (3.5-5.0) g/dL Coronavirus (PCR) Not Detected (Not Detectd) Disposition Clinical Impression: Community acquired pneumonia, Leukocytosis, ARF (acute renal failure), Weakness Narrative: r/o COVID Disposition: ADMITTED IP TO THIS HOSP Condition: Serious Is patient prescribed a controlled substance at d/c from ED?: No
[2019-12-06] MEDS ORDERED: ACETAMINOPHEN TAB 500 MG TAB PO STA (15:51)
[2019-12-06] MEDS ORDERED: SODIUM CHLORIDE 0.9% 1,000 ML IV STA (15:51)
[2019-12-06 16:26] LABS: Anisocytosis Slight; Basophils % (A) 0 %; Eosinophils # (A) 0.1 k/uL (0-0.7); Eosinophils % (A) 1 %; HGB 9.4 gm/dL (11.4-16.0); Hypochromasia Moderate; Lymphocytes # (A) 1.9 k/uL (1.0-4.8); Lymphocytes % (A) 10 %; MCH 26.4 pg (25.0-35.0); MCHC 31.5 g/dL (31.0-37.0); MCV 83.8 fL (80.0-100.0); Mean Platelet Volume 8.8; Monocytes # (A) 0.5 k/uL (0-1.0); Monocytes % (A) 3 %; Neutrophils # (A) 15.6 k/uL (1.3-7.7); Neutrophils % (A) 85 %; Platelet Count 177 k/uL (150-450); RBC 3.58 m/uL (3.80-5.40); RDW 18.2 % (11.5-15.5); WBC 18.5 k/uL (3.8-10.6)
[2019-12-06 16:31] LABS: INR 1.3 (<1.2); Partial Thromboplastin Time 24.8 sec (22.0-30.0); Prothrombin Time 13.4 sec (9.0-12.0)
[2019-12-06 16:33] LABS: Albumin 2.7 g/dL (3.5-5.0); Calcium 8.2 mg/dL (8.4-10.2); Magnesium 1.5 mg/dL (1.6-2.3); Phosphorus 4.1 mg/dL (2.5-4.5); Potassium 5.2 mmol/L (3.5-5.1); Total Bilirubin 1.3 mg/dL (0.2-1.3); Total Protein 7.7 g/dL (6.3-8.2)
[2019-12-06] MEDS ORDERED: ALBUTEROL NEBULIZED 2.5 MG/3 ML INHALATION PRN (18:11)
[2019-12-06] MEDS ORDERED: PIPERACILLIN-TAZOBACTAM 3.375 GM in SODIUM CHLORIDE 0.9% 100 ML IVPB STA (18:11)
[2019-12-06] MEDS ORDERED: PNEUMONIA PROTOCOL UTILIZED 1 EACH MISC PO PRN (18:11)
[2019-12-06] MEDS ORDERED: VANCOMYCIN IV PER PHARMACY 1 EACH MISC MISCELLANE PRN (18:12)
[2019-12-06] MEDS ORDERED: VANCOMYCIN 1,500 MG in SODIUM CHLORIDE 0.9% 250 ML IVPB ONE (19:00)
[2019-12-06] MEDS ORDERED: PIPERACILLIN-TAZOBACTAM 3.375 GM in SODIUM CHLORIDE 0.9% 100 ML IVPB ONE (19:00)
[2019-12-06] MEDS: SODIUM CHLORIDE 0.9% 1,000 ML IV SCH (21:51)
[2019-12-06] MEDS: PIPERACILLIN-TAZOBACTAM 3.375 GM in SODIUM CHLORIDE 0.9% 100 ML IVPB SCH (21:54)
[2019-12-07] MEDS: ACETAMINOPHEN TAB 325 MG TAB PO PRN ×2 (02:50→09:23)
[2019-12-07] MEDS: PIPERACILLIN-TAZOBACTAM 3.375 GM in SODIUM CHLORIDE 0.9% 100 ML IVPB SCH ×3 (05:41→22:43)
[2019-12-07] MEDS: SODIUM CHLORIDE 0.9% 1,000 ML IV SCH ×4 (05:44→22:46)
[2019-12-07 06:52] LABS: Glucose,Whole Blood 128 mg/dL (75-99)
--- NOTE | 2019-12-07 08:21 | XR ---
EXAMINATION TYPE: XR chest 1V portable DATE OF EXAM: 12/07/2019 Comparison: 04/22/2014 Clinical History: 54-year-old female pneumonia Findings: Heart borderline enlarged. Patchy bibasilar opacities. No sizable effusion. Impression: Patchy bibasilar infiltrates. Borderline heart size.
[2019-12-07] MEDS ORDERED: ONDANSETRON 4 MG TAB PO PRN (08:35)
[2019-12-07] MEDS ORDERED: HYDROcodone/APAP 7.5-325MG 1 EACH TAB PO PRN (08:35)
[2019-12-07] MEDS ORDERED: LISINOPRIL 10 MG TAB PO SCH (09:00)
[2019-12-07] MEDS ORDERED: FUROSEMIDE 40 MG TAB PO SCH (09:00)
[2019-12-07] MEDS: GABAPENTIN 400 MG CAP PO SCH ×3 (10:49→21:09)
[2019-12-07] MEDS: ARIPiprazole 5 MG TAB PO SCH (10:49)
[2019-12-07] MEDS: DULoxetine HCL 60 MG CAPSULE.DR PO SCH ×2 (10:49→21:10)
[2019-12-07] MEDS: FAMOTIDINE 20 MG TAB PO SCH (10:50)
[2019-12-07] MEDS: metFORMIN 500 MG TAB PO SCH ×2 (10:50→21:10)
[2019-12-07] MEDS: PIOGLITAZONE 15 MG TAB PO SCH (10:50)
[2019-12-07] MEDS: ALPRAZolam 0.5 MG TAB PO SCH ×3 (10:50→22:43)
[2019-12-07] MEDS: ISOSORBIDE DINITRATE 10 MG TAB PO SCH ×2 (10:50→21:10)
[2019-12-07] MEDS ORDERED: VANCOMYCIN 2,500 MG in SODIUM CHLORIDE 0.9% 500 ML 500 ML IVPB SCH (11:00)
[2019-12-07 11:56] LABS: Glucose,Whole Blood 205 mg/dL (75-99)
[2019-12-07] MEDS: INSULIN ASPART (NovoLOG) 100 UNIT/ML VIAL SQ SCH ×3 (12:57→21:08)
[2019-12-07] MEDS: ENOXAPARIN 40 MG/0.4 ML SYRINGE SQ SCH (12:57)
[2019-12-07] MEDS: NYSTATIN 100,000 UNIT/GM POWD 15 GM TOPICAL SCH ×2 (15:37→21:08)
--- NOTE | 2019-12-07 15:46 | P.HPIM ---
History of Present Illness H&P Date: 12/07/19 Chief Complaint: fall History of presenting complaint: This is a 54-year-old patient of Dr. Muñoz. Chronic stable medical conditions include diabetes, GERD, hypertension, osteoarthritis, depression. Patient's blood morbidly obese. Normally uses a wheelchair lives with her son. Patient was sleeping in a chair when she fell forwards bumping her head. Did not lose consciousness. Patient think is had some fever off and on. No cough no shortness of breath decreased urine output. Appetite has not been very good she did get a bruising on her forehead. No change in vision no focal weakness on neurological deficit. Review of systems: GEN.: Fever off and on EYES: None HEENT: Right forehead bruising] NECK: None RESPIRATORY: None CARDIOVASCULAR: None GASTROINTESTINAL: None GENITOURINARY: None MUSCULOSKELETAL: Some joint pains LYMPHATICS: None HEMATOLOGICAL: None PSYCHIATRY: None NEUROLOGICAL: Numbness and tingling of the feet. Past medical history to include: Diabetes mellitus type 2, GERD, hypertension, osteoarthritis, depression, peripheral neuropathy from diabetes Social history: Lives with her son. Does use a wheelchair. Does smoke in the past. No alcohol. Physical examination: VITAL SIGNS: 99, 75, 18, 129/66, 96% on room air GENERAL: BMI 54.8, sitting up in bed, awake. EYES: Pupils equal. Conjunctiva normal. HEENT: External appearance of nose and ears normal, oral cavity grossly normal, some bruising on the right forehead, superficial. NECK: JVD unable to assess; masses not palpable. HEART: Heart sounds are muffled; no edema. LUNGS: Respiratory rate increased; distant breath sounds. ABDOMEN: Soft, nontender, liver spleen not palpable, no masses palpable. PSYCH: Alert and oriented x3; mood and affect normal. NEUROLOGICAL: Cranial nerves grossly intact; no facial asymmetry, power and sensation grossly intact. DERMATOLOGICAL: Evidence of candidal infection in the skin folds EXTREMITY: Dry skin of the toes and the feet. LYMPHATICS: No lymph nodes palpable in the axilla and neck INVESTIGATIONS, reviewed in the clinical context: White count 18.5 hemoglobin 8.4 platelets 177 progression 5% to bun 40 creatinine 1.68 Lactic acid 2.3 proBNP 1650 troponin I less than 0.012 albumin 2.7 Coronavirus PCR-not detected EKG tracing personally reviewed by nd-normal sinus rhythm Chest x-ray film personally reviewed by me-right lower lobe infiltrate Assessment: -Right lower lobe pneumonia, suspect gram-negative organism, POA -Acute metabolic encephalopathy on presentation from above, POA -Possible sepsis from pneumonia, POA -Morbid obesity BMI 54.8 -Diabetes mellitus type 2, chronically on insulin pump -GERD -Essential hypertension -Primary osteoarthritis -Depression otherwise specified -Diabetic peripheral neuropathy -Normocytic anemia cause unknown -Kidney failure acute versus chronic, known unknown -Hyperkalemia from kidney failure -Lactic acidosis from sepsis -Hypoalbuminemia-acute phase reactant -COVID-19 tested negative Plan: Patient started and IV fluids. Patient's CHEY inhibitor and diuretics a been held. Insulin pump to continue. Accu-Cheks to be followed. Repeat labs in the morning. DC vancomycin. Because of renal failure. Continue with IV Zosyn. Care was discussed with the patient question were answered. Repeat labs in the morning. Past Medical History Past Medical History: Diabetes Mellitus, GERD/Reflux, Hypertension, Osteoarthritis (OA) Additional Past Medical History / Comment(s): Depression. Super morbid obesity History of Any Multi-Drug Resistant Organisms: None Reported Past Surgical History: Section, Cholecystectomy, Hernia Repair, Hysterectomy Past Anesthesia/Blood Transfusion Reactions: No Reported Reaction Past Psychological History: Depression Smoking Status: Former smoker Past Alcohol Use History: None Reported Past Drug Use History: None Reported - Past Family History Mother Family Medical History: Myocardial Infarction ([place]) Father Family Medical History: Cancer Medications and Allergies Home Medications Medication Instructions Recorded Confirmed Type ALPRAZolam [Xanax] 0.5 mg PO TID 01/29/18 12/06/19 History ARIPiprazole [Abilify] 5 mg PO DAILY 01/29/18 12/06/19 History DULoxetine HCL [Cymbalta] 60 mg PO BID 01/29/18 12/06/19 History Gabapentin [Neurontin] 400 mg PO TID 01/29/18 12/06/19 History Lisinopril [Zestril] 10 mg PO DAILY 01/29/18 12/06/19 History Ondansetron [Zofran] 4 mg PO Q8HR PRN 01/29/18 12/06/19 History Pravastatin Sodium [Pravachol] 20 mg PO HS 01/29/18 12/06/19 History metFORMIN HCL 1,000 mg PO BID 01/29/18 12/06/19 History Famotidine 40 mg PO DAILY 12/06/19 12/06/19 History Furosemide [Lasix] 40 mg PO DAILY 12/06/19 12/06/19 History HYDROcodone/APAP 7.5-325MG [[place] 1 tab PO TID PRN 12/06/19 12/06/19 History 7.5-325] Humulin R 500u/Ml Vial (Pump) 2.3 unit SQ CONTINUOUS 12/06/19 12/06/19 History Isosorbide Dinitrate 10 mg PO BID 12/06/19 12/06/19 History Liraglutide [Victoza 2-Brenden] 1.8 mg SQ DAILY 12/06/19 12/07/19 History Pioglitazone HCl 15 mg PO DAILY 12/06/19 12/06/19 History Allergies Allergy/AdvReac Type Severity Reaction Status Date / Time cephalexin monohydrate AdvReac Nausea & Verified 12/06/19 18:32 [From Keflex] Vomiting Physical Exam Vitals: Vital Signs Temp Pulse Pulse Resp BP BP Pulse Ox 12/07/19 07:35 76 15 12/07/19 07:00 98.3 F 76 119/66 97 12/07/19 00:15 98.2 F 92 15 142/67 94 L 12/06/19 21:24 98.6 F 85 17 138/69 97 12/06/19 20:55 98.5 F 83 18 134/59 95 12/06/19 19:49 98.7 F 12/06/19 19:00 81 18 139/65 98 12/06/19 16:52 76 16 120/61 96 12/06/19 15:51 20 12/06/19 15:35 99.0 F 75 18 129/66 96 Intake and Output 12/06/19 12/07/19 12/07/19 22:59 06:59 14:59 Intake Total 850 Output Total 650 450 300 Balance -650 400 -300 Intake: Intake, IV Titration 850 Amount Piperacillin-Tazobactam 3 100 .375 gm In Sodium Chloride 0.9% 100 ml @ 200 mls/hr IVPB ONCE ONE Rx#:[id number] Sodium Chloride 0.9% 1, 500 000 ml @ 100 mls/hr IV . Q10H KASANDRA Rx#:[id number] Vancomycin 1,500 mg In 250 Sodium Chloride 0.9% 250 ml @ 125 mls/hr IVPB ONCE ONE Rx#:[id number] Output: Urine 650 450 300 Other: Voiding Method Indwelling Catheter Indwelling Catheter # Voids 1 Weight 158.757 kg Results CBC & Chem 7: 12/06/19 16:11 12/07/19 06:27 Labs: Abnormal Lab Results - Last 24 Hours (Table) 12/06/19 12/06/19 12/06/19 Range/Units 16:11 16:11 16:11 WBC 18.5 H (3.8-10.6) k/uL RBC 3.58 L (3.80-5.40) m/uL Hgb 9.4 L (11.4-16.0) gm/dL Hct 30.0 L (34.0-46.0) % RDW 18.2 H (11.5-15.5) % Neutrophils # 15.6 H (1.3-7.7) k/uL PT 13.4 H (9.0-12.0) sec INR 1.3 H (<1.2) Sodium 134 L (137-145) mmol/L Potassium 5.2 H (3.5-5.1) mmol/L BUN 40 H (7-17) mg/dL Creatinine 1.68 H (0.52-1.04) mg/dL Glucose 176 H (74-99) mg/dL POC Glucose (mg/dL) (75-99) mg/dL Plasma Lactic Acid Pato (0.7-2.0) mmol/L Calcium 8.2 L (8.4-10.2) mg/dL Magnesium 1.5 L (1.6-2.3) mg/dL Alkaline Phosphatase 134 H (38-126) U/L Creatine Kinase 162 H (30-135) U/L Albumin 2.7 L (3.5-5.0) g/dL 12/06/19 12/07/19 12/07/19 Range/Units 16:11 06:27 06:51 WBC (3.8-10.6) k/uL RBC (3.80-5.40) m/uL Hgb (11.4-16.0) gm/dL Hct (34.0-46.0) % RDW (11.5-15.5) % Neutrophils # (1.3-7.7) k/uL PT (9.0-12.0) sec INR (<1.2) Sodium (137-145) mmol/L Potassium (3.5-5.1) mmol/L BUN (7-17) mg/dL Creatinine 1.31 H (0.52-1.04) mg/dL Glucose (74-99) mg/dL POC Glucose (mg/dL) 128 H (75-99) mg/dL Plasma Lactic Acid Pato 2.3 H* (0.7-2.0) mmol/L Calcium (8.4-10.2) mg/dL Magnesium (1.6-2.3) mg/dL Alkaline Phosphatase (38-126) U/L Creatine Kinase (30-135) U/L Albumin (3.5-5.0) g/dL Thrombosis Risk Factor Assmnt - Choose All That Apply Any of the Below Risk Factors Present?: Yes Each Factor Represents 1 point: Age 41-60 years, Obesity (BMI >25) Each Risk Factor Represents 2 Points: Patient confined to bed Thrombosis Risk Factor Assessment Total Risk Factor Score: 4 Thrombosis Risk Factor Assessment Level: Moderate Risk
[2019-12-07 16:43] LABS: Glucose,Whole Blood 236 mg/dL (75-99)
[2019-12-07] MEDS: [UNRECOGNIZED DRUG - OTHER] SQ SCH (16:48)
[2019-12-07] MEDS: INSULIN REGULAR SQ SCH (16:48)
[2019-12-07 20:59] LABS: Glucose,Whole Blood 213 mg/dL (75-99)
[2019-12-07] MEDS: PRAVASTATIN SODIUM 20 MG TAB PO SCH (21:09)
[2019-12-07 21:42] LABS: Appearance,Urine Cloudy (Clear); Bilirubin,Urine Negative (Negative); Blood,Urine Moderate (Negative); Color,Urine Yellow; Glucose,Urine (UA) Negative (Negative); Ketones,Urine Negative (Negative); Leukocyte Esterase,Urine Trace (Negative); Mucus,Urine Rare /hpf; Nitrite,Urine Negative (Negative); Protein,Urine Trace (Negative); RBC,Urine 123 /hpf (0-5); Specific Gravity,Urine 1.017 (1.001-1.035); Squamous Epithelial Cell,Urine <1 /hpf (0-4); Uric Acid Crystals,Urine Occasional /hpf; Urobilinogen,Urine <2.0 mg/dL (<2.0); WBC,Urine 2 /hpf (0-5)
[2019-12-08] MEDS: ACETAMINOPHEN TAB 325 MG TAB PO PRN (01:58)
[2019-12-08] MEDS: PIPERACILLIN-TAZOBACTAM 3.375 GM in SODIUM CHLORIDE 0.9% 100 ML IVPB SCH ×3 (05:59→20:14)
[2019-12-08 06:58] LABS: Glucose,Whole Blood 165 mg/dL (75-99)
[2019-12-08 07:15] LABS: Anisocytosis Slight; HCT 28.5 % (34.0-46.0); HGB 8.7 gm/dL (11.4-16.0); Hypochromasia Marked; MCH 26.6 pg (25.0-35.0); MCHC 30.5 g/dL (31.0-37.0); MCV 87.2 fL (80.0-100.0); Mean Platelet Volume 8.2; Platelet Count 173 k/uL (150-450); RBC 3.27 m/uL (3.80-5.40); RDW 18.5 % (11.5-15.5); WBC 9.1 k/uL (3.8-10.6)
[2019-12-08 07:34] LABS: Calcium 7.9 mg/dL (8.4-10.2); Potassium 4.3 mmol/L (3.5-5.1)
[2019-12-08] MEDS: INSULIN ASPART (NovoLOG) 100 UNIT/ML VIAL SQ SCH ×4 (07:37→20:13)
[2019-12-08] MEDS: FAMOTIDINE 20 MG TAB PO SCH (07:38)
[2019-12-08] MEDS: metFORMIN 500 MG TAB PO SCH ×2 (07:38→20:14)
[2019-12-08] MEDS: ARIPiprazole 5 MG TAB PO SCH (07:38)
[2019-12-08] MEDS: ISOSORBIDE DINITRATE 10 MG TAB PO SCH ×2 (07:38→20:14)
[2019-12-08] MEDS: ENOXAPARIN 40 MG/0.4 ML SYRINGE SQ SCH (07:38)
[2019-12-08] MEDS: ALPRAZolam 0.5 MG TAB PO SCH ×3 (07:38→20:14)
[2019-12-08] MEDS: PIOGLITAZONE 15 MG TAB PO SCH (07:38)
[2019-12-08] MEDS: GABAPENTIN 400 MG CAP PO SCH ×3 (07:38→20:14)
[2019-12-08] MEDS: DULoxetine HCL 60 MG CAPSULE.DR PO SCH ×2 (07:39→20:14)
[2019-12-08] MEDS: NYSTATIN 100,000 UNIT/GM POWD 15 GM TOPICAL SCH ×2 (07:39→20:15)
[2019-12-08] MEDS: SODIUM BICARBONATE TAB 650 MG TAB PO SCH ×3 (11:58→20:19)
[2019-12-08] MEDS: SODIUM CHLORIDE 0.9% 1,000 ML IV SCH ×3 (11:58→17:18)
[2019-12-08 11:59] LABS: Glucose,Whole Blood 214 mg/dL (75-99)
[2019-12-08 13:59] LABS: Hemoglobin A1C 7.4 % (4.0-6.0)
[2019-12-08 16:52] LABS: Glucose,Whole Blood 217 mg/dL (75-99)
[2019-12-08] MEDS: [UNRECOGNIZED DRUG - OTHER] SQ SCH (17:05)
[2019-12-08] MEDS: INSULIN REGULAR SQ SCH (17:05)
--- NOTE | 2019-12-08 17:09 | P.PN ---
Progress Note - Text Progress Note Date: 12/08/19 History of presenting complaint: This is a 54-year-old patient of Dr. Muñoz. Chronic stable medical conditions include diabetes, GERD, hypertension, osteoarthritis, depression. Patient's blood morbidly obese. Normally uses a wheelchair lives with her son. Patient was sleeping in a chair when she fell forwards bumping her head. Did not lose consciousness. Patient think is had some fever off and on. No cough no shortness of breath decreased urine output. Appetite has not been very good she did get a bruising on her forehead. No change in vision no focal weakness on neurological deficit. Admitted with right lower lobe pneumonia, and embolic encephalopathy from the same, possibly acute kidney injury. Started on IV Zosyn. IV fluids. Today-feeling a bit better. Appetite improving. Feels a bit more peppy. Review of systems: Was done for constitutional, cardiovascular, GI, pulmonary. relevant finding as above Active Medications Acetaminophen (Tylenol Tab) 650 mg PO Q6HR PRN PRN Reason: Fever and/ or Pain Last Admin: 12/08/19 01:58 Dose: 650 mg Documented by: Hydrocodone Bitart/Acetaminophen ([place] 7.5-325) 1 each PO TID PRN PRN Reason: Pain Albuterol Sulfate (Ventolin Nebulized) 2.5 mg INHALATION RT-Q4H PRN PRN Reason: Shortness Of Breath Or Wheezing Alprazolam (Xanax) 0.5 mg PO TID [facility] Last Admin: 12/08/19 07:38 Dose: 0.5 mg Documented by: Aripiprazole (Abilify) 5 mg PO DAILY [facility] Last Admin: 12/08/19 07:38 Dose: 5 mg Documented by: Duloxetine HCl (Cymbalta) 60 mg PO BID [facility] Last Admin: 12/08/19 07:39 Dose: 60 mg Documented by: Enoxaparin Sodium (Lovenox) 40 mg SQ DAILY [facility] Last Admin: 12/08/19 07:38 Dose: 40 mg Documented by: Famotidine (Pepcid) 40 mg PO DAILY [facility] Last Admin: 12/08/19 07:38 Dose: 40 mg Documented by: Gabapentin (Neurontin) 400 mg PO TID [facility] Last Admin: 12/08/19 07:38 Dose: 400 mg Documented by: Piperacillin Sod/Tazobactam (Sod 3.375 gm/ Sodium Chloride) 100 mls @ 25 mls/hr IVPB Q8H [facility] Last Admin: 12/08/19 13:37 Dose: 25 mls/hr Documented by: Sodium Chloride (Saline 0.9%) 1,000 mls @ 125 mls/hr IV .Q8H [facility] Last Admin: 12/08/19 11:58 Dose: 125 mls/hr Documented by: Insulin Aspart (Novolog) 0 unit SQ ACHS [facility]; Protocol Last Admin: 12/08/19 11:59 Dose: 6 unit Documented by: Isosorbide Dinitrate (Isordil) 10 mg PO BID [facility] Last Admin: 12/08/19 07:38 Dose: 10 mg Documented by: Metformin HCl (Glucophage) 1,000 mg PO BID [facility] Last Admin: 12/08/19 07:38 Dose: 1,000 mg Documented by: Miscellaneous Information (Pneumonia Protocol Utilized) 1 each PO ONCE PRN PRN Reason: Per Protocol (Liraglutide [ Victoza 2-Brenden] 1 Injection) 1 injection SQ Q7D [facility] Last Admin: 12/07/19 10:47 Dose: Not Given Documented by: Non-Formulary Medication (Humulin R 500u/Ml Vial (Pump)) 2.3 unit SQ CONTINUOUS [facility] Last Admin: 12/08/19 17:05 Dose: Not Given Documented by: Nystatin (Mycostatin Powder) 1 applic TOPICAL BID [facility] Last Admin: 12/08/19 07:39 Dose: 1 applic Documented by: Ondansetron HCl (Zofran) 4 mg PO Q8HR PRN PRN Reason: Nausea Pioglitazone HCl (Actos) 15 mg PO DAILY [facility] Last Admin: 12/08/19 07:38 Dose: 15 mg Documented by: Pravastatin Sodium (Pravachol) 20 mg PO HS [facility] Last Admin: 12/07/19 21:09 Dose: 20 mg Documented by: Sodium Bicarbonate (Sodium Bicarbonate Tab) 650 mg PO TID [facility] Last Admin: 12/08/19 11:58 Dose: 650 mg Documented by: Physical examination: VITAL SIGNS: 98.1, 83, 18, 121/69, 96% on 2 L GENERAL: Propped up in bed, more awake. EYES: Pupils equal. Conjunctiva normal. HEENT: External appearance of nose and ears normal, oral cavity grossly normal, some bruising on the right forehead, superficial. NECK: JVD unable to assess; masses not palpable. HEART: Heart sounds are muffled; no edema. LUNGS: Respiratory rate increased; distant breath sounds. ABDOMEN: Soft, nontender, liver spleen not palpable, no masses palpable. PSYCH: Alert and oriented x3; mood and affect normal. DERMATOLOGICAL: Evidence of candidal infection in the skin folds EXTREMITY: Dry skin of the toes and the feet. INVESTIGATIONS, reviewed in the clinical context: White count 9.1 hemoglobin 8.7 bun 31 and creatinine 1.28 Previous testing White count 18.5 hemoglobin 8.4 platelets 177 progression 5% to bun 40 creatinine 1.68 Lactic acid 2.3 proBNP 1650 troponin I less than 0.012 albumin 2.7 Coronavirus PCR-not detected EKG tracing personally reviewed by me-normal sinus rhythm Chest x-ray film personally reviewed by me-right lower lobe infiltrate Assessment: -Right lower lobe pneumonia, suspect gram-negative organism, POA -Acute metabolic encephalopathy on presentation from above, POA -Possible sepsis from pneumonia, POA -Morbid obesity BMI 54.8 -Diabetes mellitus type 2, chronically on insulin pump -GERD -Essential hypertension -Primary osteoarthritis -Depression otherwise specified -Diabetic peripheral neuropathy -Normocytic anemia cause unknown -Acute kidney injury, likely ATN from sepsis, POA -Rule out a chronic kidney disease component -Hyperkalemia from kidney failure -Lactic acidosis from sepsis -Hypoalbuminemia-acute phase reactant -COVID-19 tested negative Plan: Continue with IV antibiotics IV fluids. Care was discussed with the patient. Questions were answered. Repeat labs.
[2019-12-08 20:09] LABS: Glucose,Whole Blood 209 mg/dL (75-99)
[2019-12-08] MEDS: PRAVASTATIN SODIUM 20 MG TAB PO SCH (20:14)
[2019-12-09] MEDS: SODIUM CHLORIDE 0.9% 1,000 ML IV SCH ×2 (01:56→11:54)
[2019-12-09] MEDS: PIPERACILLIN-TAZOBACTAM 3.375 GM in SODIUM CHLORIDE 0.9% 100 ML IVPB SCH ×2 (05:26→14:50)
[2019-12-09 06:45] LABS: Glucose,Whole Blood 141 mg/dL (75-99)
[2019-12-09] MEDS: INSULIN ASPART (NovoLOG) 100 UNIT/ML VIAL SQ SCH ×3 (06:59→17:00)
[2019-12-09 07:30] VITALS: BP 120/67; PULSE 74; RESP 18; TEMP 97.6
[2019-12-09] MEDS: ALPRAZolam 0.5 MG TAB PO SCH ×2 (07:49→17:00)
[2019-12-09] MEDS: PIOGLITAZONE 15 MG TAB PO SCH (07:49)
[2019-12-09] MEDS: ARIPiprazole 5 MG TAB PO SCH (07:49)
[2019-12-09] MEDS: DULoxetine HCL 60 MG CAPSULE.DR PO SCH (07:49)
[2019-12-09] MEDS: FAMOTIDINE 20 MG TAB PO SCH (07:49)
[2019-12-09] MEDS: ENOXAPARIN 40 MG/0.4 ML SYRINGE SQ SCH (07:49)
[2019-12-09] MEDS: SODIUM BICARBONATE TAB 650 MG TAB PO SCH ×2 (07:49→17:00)
[2019-12-09] MEDS: GABAPENTIN 400 MG CAP PO SCH ×2 (07:49→17:00)
[2019-12-09] MEDS: ISOSORBIDE DINITRATE 10 MG TAB PO SCH (07:50)
[2019-12-09] MEDS: NYSTATIN 100,000 UNIT/GM POWD 15 GM TOPICAL SCH (07:50)
[2019-12-09] MEDS: metFORMIN 500 MG TAB PO SCH (07:50)
[2019-12-09 09:25] LABS: Anisocytosis Slight; HCT 30.7 % (34.0-46.0); Hypochromasia Marked; MCH 26.2 pg (25.0-35.0); MCHC 29.4 g/dL (31.0-37.0); MCV 89.2 fL (80.0-100.0); Mean Platelet Volume 8.2; Platelet Count 191 k/uL (150-450); RBC 3.44 m/uL (3.80-5.40); RDW 18.4 % (11.5-15.5); WBC 8.1 k/uL (3.8-10.6)
[2019-12-09 09:36] LABS: Calcium 7.9 mg/dL (8.4-10.2); Potassium 4.5 mmol/L (3.5-5.1)
[2019-12-09 11:44] LABS: Glucose,Whole Blood 154 mg/dL (75-99)
[2019-12-09] MEDS: [UNRECOGNIZED DRUG - OTHER] SQ SCH (17:01)
[2019-12-09] MEDS: INSULIN REGULAR SQ SCH (17:01)
--- NOTE | 2019-12-09 21:31 | P.DS ---
Providers Date of admission: 12/06/19 18:11 Expected date of discharge: 12/09/19 Attending physician: Ori Sarkar Primary care physician: Brayden Muñoz [place] [facility] Course: History of presenting complaint: This is a 54-year-old patient of Dr. Muñoz. Chronic stable medical conditions include diabetes, GERD, hypertension, osteoarthritis, depression. Patient's blood morbidly obese. Normally uses a wheelchair lives with her son. Patient was sleeping in a chair when she fell forwards bumping her head. Did not lose consciousness. Patient think is had some fever off and on. No cough no shortness of breath decreased urine output. Appetite has not been very good she did get a bruising on her forehead. No change in vision no focal weakness on neurological deficit. Admitted with right lower lobe pneumonia, and metabolic encephalopathy from the same, acute kidney injury. Started on IV Zosyn. IV fluids. Creatinine did come down from 1.68 down to 1.03. Today-feeling well. Back to baseline. Lisinopril resumed. Continue to hold off the Lasix.. Discussed with the patient. Physical examination: VITAL SIGNS: 97.6, 74, 18, 120/67, 96% on 2 L GENERAL: Sitting up in a chair, comfortable EYES: Pupils equal. Conjunctiva normal. HEENT: External appearance of nose and ears normal, oral cavity grossly normal, some bruising on the right forehead, superficial. NECK: JVD unable to assess; masses not palpable. HEART: Heart sounds are muffled; no edema. LUNGS: Respiratory rate increased; distant breath sounds. ABDOMEN: Soft, nontender, liver spleen not palpable, no masses palpable. PSYCH: Alert and oriented x3; mood and affect normal. DERMATOLOGICAL: Evidence of candidal infection in the skin folds EXTREMITY: Dry skin of the toes and the feet. INVESTIGATIONS, reviewed in the clinical context: White count 8.1 hemoglobin 9 potassium 4.5 creatinine 1.03 Previous testing White count 18.5 hemoglobin 8.4 platelets 177 progression 5% to bun 40 creatinine 1.68 Lactic acid 2.3 proBNP 1650 troponin I less than 0.012 albumin 2.7 Coronavirus PCR-not detected EKG tracing personally reviewed by me-normal sinus rhythm Chest x-ray film personally reviewed by me-right lower lobe infiltrate Assessment: -Right lower lobe pneumonia, suspect gram-negative organism, POA -Acute metabolic encephalopathy on presentation from above, POA, corrected -Possible sepsis from pneumonia, POA -Morbid obesity BMI 54.8 -Diabetes mellitus type 2, chronically on insulin pump -GERD -Essential hypertension -Primary osteoarthritis -Depression otherwise specified -Diabetic peripheral neuropathy -Normocytic anemia cause unknown -Acute kidney injury, likely ATN from sepsis, POA -Rule out a chronic kidney disease component -Hyperkalemia from kidney failure -Lactic acidosis from sepsis -Hypoalbuminemia-acute phase reactant -COVID-19 tested negative Disposition: Home. Patient Condition at Discharge: Stable Plan - Discharge Summary New Discharge Prescriptions: New Amoxicillin/Potassium Clav [Augmentin 875-125 Tablet] 1 tab PO Q12HR #10 tab Nystatin 100,000 Unit/gm Powd [Mycostatin Powder] 1 applic TOPICAL BID applic Sodium Bicarbonate Tab 650 mg PO TID #30 tab Continue ARIPiprazole [Abilify] 5 mg PO DAILY ALPRAZolam [Xanax] 0.5 mg PO TID Gabapentin [Neurontin] 400 mg PO TID DULoxetine HCL [Cymbalta] 60 mg PO BID metFORMIN HCL 1,000 mg PO BID Pravastatin Sodium [Pravachol] 20 mg PO HS Lisinopril [Zestril] 10 mg PO DAILY Ondansetron [Zofran] 4 mg PO Q8HR PRN PRN Reason: Nausea Humulin R 500u/Ml Vial (Pump) 2.3 unit SQ CONTINUOUS HYDROcodone/APAP 7.5-325MG [[place] 7.5-325] 1 tab PO TID PRN PRN Reason: Pain Famotidine 40 mg PO DAILY Isosorbide Dinitrate 10 mg PO BID Pioglitazone HCl 15 mg PO DAILY Liraglutide [Victoza 2-Brenden] 1.8 mg SQ DAILY Discontinued Furosemide [Lasix] 40 mg PO DAILY Discharge Medication List ALPRAZolam [Xanax] 0.5 mg PO TID 01/29/18 [History] ARIPiprazole [Abilify] 5 mg PO DAILY 01/29/18 [History] DULoxetine HCL [Cymbalta] 60 mg PO BID 01/29/18 [History] Gabapentin [Neurontin] 400 mg PO TID 01/29/18 [History] Lisinopril [Zestril] 10 mg PO DAILY 01/29/18 [History] Ondansetron [Zofran] 4 mg PO Q8HR PRN 01/29/18 [History] Pravastatin Sodium [Pravachol] 20 mg PO HS 01/29/18 [History] metFORMIN HCL 1,000 mg PO BID 01/29/18 [History] Famotidine 40 mg PO DAILY 12/06/19 [History] HYDROcodone/APAP 7.5-325MG [[place] 7.5-325] 1 tab PO TID PRN 12/06/19 [History] Humulin R 500u/Ml Vial (Pump) 2.3 unit SQ CONTINUOUS 12/06/19 [History] Isosorbide Dinitrate 10 mg PO BID 12/06/19 [History] Liraglutide [Victoza 2-Brenden] 1.8 mg SQ DAILY 12/06/19 [History] Pioglitazone HCl 15 mg PO DAILY 12/06/19 [History] Amoxicillin/Potassium Clav [Augmentin 875-125 Tablet] 1 tab PO Q12HR #10 tab 12/09/19 [Rx] Nystatin 100,000 Unit/gm Powd [Mycostatin Powder] 1 applic TOPICAL BID applic 12/09/19 [Rx] Sodium Bicarbonate Tab 650 mg PO TID #30 tab 12/09/19 [Rx] Follow up Appointment(s)/Referral(s): Brayden Muñoz MD [Primary Care Provider] - 1-2 days (office not answering. Please call to make appointment) Patient Instructions/Handouts: Bacterial Pneumonia (DC) Discharge Disposition: HOME SELF-CARE
[2019-12-10 07:54] LABS: Glucose,Whole Blood 207 mg/dL (75-99)
--- NOTE | 2019-12-10 12:13 | CDI ---
Documentation Clarification Form Date: 12/10/19 From: Chantal Rubio Phone: If you have a question about this query, please contact Maria Elena Mcdonough, [employer] at [phone] between 8am and 5pm. Admit Date: 12/06/19 Discharge Date: 12/09/19 Patient Name: LG MADRIGAL Visit Number: [id number] ATTENTION: The Clinical Documentation Specialists (CDI) and [facility] Coding Staff appreciate your assistance in clarifying documentation. Please respond to the clarification below the line at the bottom and electronically sign. The CDI & [facility] Coding staff will review the response and follow-up if needed. Please note: Queries are made part of the Legal Health Record. If you have any questions, please contact the author of this message via ITS. Dear Dr. Ori Sarkar, Please render your opinion on the clinical significance of the patients BUN/Creatinine/GFR levels. History/Risk Factors: Patients Historical BUN/CR/GFR: none available Current Clinical Indicators: BUN: 40, 31, 23 CR: 1.68, 1.31, 1.28, 1.03 GFR: 34, 46, 47, 61 Treatment: IV fluids, antibiotics Consults: none In order to capture the severity of condition, please clarify if the labs/clinical indicators signify: CKD ruled out CKD Stage 1 (GFR > 90) CKD Stage 2 (GFR 60-89) CKD Stage 3 (GFR 30-59) CKD Stage 4 (GFR 15-29) CKD Stage 5 (GFR <15) ESRD Other, please specify Unable to determine Chronic kidney disease-ruled out MTDD
== END 2019-12-09 17:44 | disposition home or self-care (01) | DRG 871 ==
LOC: EC 15:27 → 4SSUR 18:11
PROVIDERS: ADMIT Hospitalist; ATTEND Hospitalist
DX: A41.50 Gram-negative sepsis, unspecified (principal); G93.41 Metabolic encephalopathy; J15.6 Pneumonia due to other Gram-negative bacteria; N17.0 Acute kidney failure with tubular necrosis; Z68.43 Body mass index [BMI] 50.0-59.9, adult; E87.2 Acidosis; R65.20 Severe sepsis without septic shock; E66.01 Morbid (severe) obesity due to excess calories; Z20.828 Contact with and (suspected) exposure to other viral communicable diseases; E88.09 Other disorders of plasma-protein metabolism, not elsewhere classified; B37.2 Candidiasis of skin and nail; E11.42 Type 2 diabetes mellitus with diabetic polyneuropathy; E87.5 Hyperkalemia; I10 Essential (primary) hypertension; S00.83XA Contusion of other part of head, initial encounter; K21.9 Gastro-esophageal reflux disease without esophagitis; F32.9 Major depressive disorder, single episode, unspecified; D64.9 Anemia, unspecified; M19.91 Primary osteoarthritis, unspecified site; Z79.4 Long term (current) use of insulin; Z79.899 Other long term (current) drug therapy; Z90.49 Acquired absence of other specified parts of digestive tract; Z96.41 Presence of insulin pump (external) (internal); Z98.890 Other specified postprocedural states; Z98.891 History of uterine scar from previous surgery; Z90.710 Acquired absence of both cervix and uterus; Z87.891 Personal history of nicotine dependence; W07.XXXA Fall from chair, initial encounter; Y92.009 Unspecified place in unspecified non-institutional (private) residence as the place of occurrence of the external cause; Z88.1 Allergy status to other antibiotic agents; Z82.49 Family history of ischemic heart disease and other diseases of the circulatory system; Z80.9 Family history of malignant neoplasm, unspecified
CPT/HCPCS: 36415; 71045; 80048; 80053; 81001; 82550; 82565; 83036; 83605; 83735; 83880; 84100; 84484; 85025; 85027; 85610; 85730; 87040; 87635; 93005; 96360; 96361; 99285

== ENCOUNTER 2020-01-23 20:23 | Inpatient (IN) | payer MEDICARE, OTHER ==
--- NOTE | 2020-01-23 21:24 | ED ---
General Adult HPI - General Chief complaint: Recheck/Abnormal Lab/Rx Stated complaint: Abd pain Time Seen by Provider: 01/23/20 20:25 Source: patient, EMS Mode of arrival: EMS Limitations: no limitations - History of Present Illness Initial comments: Patient is a 55-year-old female past history of diabetes, morbid obesity and hypertension who presents emergency Department as a transfer from [facility]. They did call me to discuss the case. They state that the patient presented there after she has had 1 day of abdominal pain and lack of bowel movements. The pain is located in the bilateral lower quadrants. She denied having any fevers or chills. Admits to nausea without vomiting. Denies any urinary changes to include dysuria, hematuria or difficulty voiding. Does report to having lack of bowel movements and did do an enema yesterday without having results. At [facility] they found the patient to have a lactic acid of 2.7. CT was performed which demonstrated a partial small bowel obstruction with multiple partial areas of incarcerated ventral hernia. The patient does have a history of previous bowel obstruction and has seen Dr. Al. They were requesting transfer to a facility. Patient was given pain control and nausea as well as IV fluids and transferred. Patient arrives stating that her pain is well-controlled at this time. This was her hospital request. Denies having fevers or chills. There are no other alleviating, precipitating or modifying factors - Related Data Home Medications Medication Instructions Recorded Confirmed ALPRAZolam [Xanax] 0.5 mg PO TID 01/29/18 01/24/20 ARIPiprazole [Abilify] 5 mg PO DAILY 01/29/18 01/24/20 DULoxetine HCL [Cymbalta] 60 mg PO BID 01/29/18 01/24/20 Gabapentin [Neurontin] 400 mg PO TID 01/29/18 01/24/20 Lisinopril [Zestril] 10 mg PO DAILY 01/29/18 01/24/20 Ondansetron [Zofran] 4 mg PO Q8HR PRN 01/29/18 01/24/20 Pravastatin Sodium [Pravachol] 20 mg PO HS 01/29/18 01/24/20 Famotidine 40 mg PO DAILY 04/27/20 06/15/20 HYDROcodone/APAP 7.5-325MG [[place] 1 tab PO TID PRN 12/06/19 01/24/20 7.5-325] Humulin R 500u/Ml Vial (Pump) 2.3 unit SQ CONTINUOUS 12/06/19 01/24/20 Isosorbide Dinitrate 10 mg PO BID 12/06/19 01/24/20 Liraglutide [Victoza 2-Brenden] 1.8 mg SQ DAILY 12/06/19 01/24/20 Previous Rx's Medication Instructions Recorded Nystatin 100,000 Unit/gm Powd 1 applic TOPICAL BID applic 12/09/19 [Mycostatin Powder] Allergies Allergy/AdvReac Type Severity Reaction Status Date / Time cephalexin monohydrate AdvReac Nausea & Verified 12/06/19 18:32 [From Keflex] Vomiting Review of Systems ROS Statement: Those systems with pertinent positive or pertinent negative responses have been documented in the HPI. ROS Other: All systems not noted in ROS Statement are negative. Past Medical History Past Medical History: Diabetes Mellitus, GERD/Reflux, Hypertension, Osteoarthritis (OA) Additional Past Medical History / Comment(s): Depression. Super morbid obesity History of Any Multi-Drug Resistant Organisms: None Reported Past Surgical History: Section, Cholecystectomy, Hernia Repair, Hysterectomy Past Anesthesia/Blood Transfusion Reactions: No Reported Reaction Past Psychological History: Depression Smoking Status: Former smoker Past Alcohol Use History: None Reported Past Drug Use History: None Reported - Past Family History Mother Family Medical History: Myocardial Infarction ([place]) Father Family Medical History: Cancer General Exam Limitations: no limitations General appearance: alert, in no apparent distress Head exam: Present: atraumatic, normocephalic, normal inspection Eye exam: Present: normal appearance, PERRL, EOMI. Absent: scleral icterus, conjunctival injection, periorbital swelling ENT exam: Present: normal exam, mucous membranes moist Neck exam: Present: normal inspection. Absent: tenderness, meningismus, lymphad enopathy Respiratory exam: Present: normal lung sounds bilaterally. Absent: respiratory distress, wheezes, rales, rhonchi, stridor Cardiovascular Exam: Present: regular rate, normal rhythm, normal heart sounds. Absent: systolic murmur, diastolic murmur, rubs, gallop, clicks GI/Abdominal exam: Present: soft, normal bowel sounds, other (large pannus). Absent: distended, tenderness, guarding, rebound, rigid Extremities exam: Present: normal inspection, full ROM, normal capillary refill. Absent: tenderness, pedal edema, joint swelling, calf tenderness Back exam: Present: normal inspection Neurological exam: Present: alert, oriented X3, CN II-XII intact Psychiatric exam: Present: normal affect, normal mood Skin exam: Present: warm, dry, intact, normal color. Absent: rash Course Vital Signs 01/23/20 01/23/20 01/23/20 20:26 20:30 22:39 Temperature 98 F Pulse Rate 90 75 Respiratory 18 16 Rate Blood Pressure 133/58 123/53 O2 Sat by Pulse 98 Oximetry Medical Decision Making - Medical Decision Making Prior to hospital arrival I did call Dr. Al to discuss the transfer. Dr. Perdomo did accept the patient. Michell was made aware of this and did tra nsfer the patient. Upon arrival here I did review the patient's packets. I repeated laboratory studies including lactic acid which continues to be 2.4. She did not receive any antibiotics and was gentle fluid hydrated at 75 mL per hour. I did start the patient on 100 mL per hour, naida blood cultures and initiated the patient on Zosyn. She is made nothing by mouth. The patient was admitted to Dr. Perdomo. I then called and discussed the case with her and she states that at this time she does not want to be the admitting provider but requests that medicine take the patient and she will be placed on consult. Because of this I did call discuss case with Dr. Ty who accepted admission for the patient. She was then transferred to the floor in stable condition - Lab Data Result diagrams: 01/25/20 06:39 01/25/20 06:39 Lab Results 01/23/20 01/23/20 01/23/20 Range/Units 21:39 21:39 21:39 WBC 10.6 (3.8-10.6) k/uL RBC 3.65 L (3.80-5.40) m/uL Hgb 9.3 L (11.4-16.0) gm/dL Hct 30.6 L (34.0-46.0) % MCV 83.9 D (80.0-100.0) fL MCH 25.6 (25.0-35.0) pg MCHC 30.5 L (31.0-37.0) g/dL RDW 16.5 H (11.5-15.5) % Plt Count 154 (150-450) k/uL Neutrophils % 75 % Lymphocytes % 14 % Monocytes % 6 % Eosinophils % 4 % Basophils % 0 % Neutrophils # 7.9 H (1.3-7.7) k/uL Lymphocytes # 1.4 (1.0-4.8) k/uL Monocytes # 0.6 (0-1.0) k/uL Eosinophils # 0.5 (0-0.7) k/uL Basophils # 0.0 (0-0.2) k/uL Hypochromasia Moderate Anisocytosis Slight Sodium 133 L (137-145) mmol/L Potassium 4.9 (3.5-5.1) mmol/L Chloride 101 (98-107) mmol/L Carbon Dioxide 27 (22-30) mmol/L Anion Gap 5 mmol/L BUN 26 H (7-17) mg/dL Creatinine 0.90 (0.52-1.04) mg/dL Est GFR (CKD-EPI)AfAm 83 (>60 ml/min/1.73 sqM) Est GFR (CKD-EPI)NonAf 72 (>60 ml/min/1.73 sqM) Glucose 96 (74-99) mg/dL Plasma Lactic Acid Pato 2.4 H* (0.7-2.0) mmol/L Calcium 8.4 (8.4-10.2) mg/dL Total Bilirubin 0.9 (0.2-1.3) mg/dL AST 46 H (14-36) U/L ALT 19 (4-34) U/L Alkaline Phosphatase 98 (38-126) U/L Total Protein 7.4 (6.3-8.2) g/dL Albumin 2.9 L (3.5-5.0) g/dL Disposition Clinical Impression: Partial small bowel obstruction, Abdominal pain, Incarcerated hernia Disposition: ADMITTED IP TO THIS [facility] Condition: Stable Is patient prescribed a controlled substance at d/c from ED?: No Decision to Admit Reason: Admit from EC Decision Date: 01/23/20 Decision Time: 22:07
[2020-01-23 21:52] LABS: Anisocytosis Slight; Basophils % (A) 0 %; Eosinophils # (A) 0.5 k/uL (0-0.7); Eosinophils % (A) 4 %; HCT 30.6 % (34.0-46.0); HGB 9.3 gm/dL (11.4-16.0); Hypochromasia Moderate; Lymphocytes # (A) 1.4 k/uL (1.0-4.8); Lymphocytes % (A) 14 %; MCH 25.6 pg (25.0-35.0); MCHC 30.5 g/dL (31.0-37.0); Mean Platelet Volume 8.1; Monocytes # (A) 0.6 k/uL (0-1.0); Monocytes % (A) 6 %; Neutrophils # (A) 7.9 k/uL (1.3-7.7); Neutrophils % (A) 75 %; Platelet Count 154 k/uL (150-450); RBC 3.65 m/uL (3.80-5.40); RDW 16.5 % (11.5-15.5); WBC 10.6 k/uL (3.8-10.6)
[2020-01-23 21:58] LABS: Albumin 2.9 g/dL (3.5-5.0); Calcium 8.4 mg/dL (8.4-10.2); MCV 83.9 fL (80.0-100.0); Potassium 4.9 mmol/L (3.5-5.1); Total Bilirubin 0.9 mg/dL (0.2-1.3); Total Protein 7.4 g/dL (6.3-8.2)
[2020-01-23] MEDS ORDERED: NALOXONE 0.4 MG/ML 1 ML VIAL IV PRN (22:07)
[2020-01-23] MEDS ORDERED: ONDANSETRON 4 MG/2 ML VIAL IVP PRN (22:07)
[2020-01-23] MEDS: SODIUM CHLORIDE 0.9% 1,000 ML IV SCH (22:38)
[2020-01-23] MEDS: PIPERACILLIN-TAZOBACTAM 3.375 GM in SODIUM CHLORIDE 0.9% 100 ML IVPB SCH (23:37)
[2020-01-23] MEDS ORDERED: SODIUM CHLORIDE 0.9% 1,000 ML IV ONE (23:49)
[2020-01-24] MEDS ORDERED: DEXTROSE 50% SYRINGE 50 ML IVP ONE (07:10)
[2020-01-24 07:17] LABS: Glucose,Whole Blood 55 mg/dL (75-99)
[2020-01-24] MEDS ORDERED: DEXTROSE 50% SYRINGE 50 ML IVP STA (07:17)
[2020-01-24] MEDS: PIPERACILLIN-TAZOBACTAM 3.375 GM in SODIUM CHLORIDE 0.9% 100 ML IVPB SCH ×3 (07:21→23:23)
[2020-01-24 07:35] LABS: Glucose,Whole Blood 90 mg/dL (75-99)
[2020-01-24 07:50] LABS: Anisocytosis Slight; Basophils % (A) 0 %; Eosinophils # (A) 0.6 k/uL (0-0.7); Eosinophils % (A) 6 %; HCT 30.5 % (34.0-46.0); HGB 9.6 gm/dL (11.4-16.0); Hypochromasia Marked; Lymphocytes # (A) 1.6 k/uL (1.0-4.8); Lymphocytes % (A) 16 %; MCH 26.9 pg (25.0-35.0); MCHC 31.5 g/dL (31.0-37.0); MCV 85.6 fL (80.0-100.0); Mean Platelet Volume 8.5; Monocytes # (A) 0.5 k/uL (0-1.0); Monocytes % (A) 5 %; Neutrophils # (A) 7.1 k/uL (1.3-7.7); Neutrophils % (A) 71 %; Platelet Count 165 k/uL (150-450); RBC 3.57 m/uL (3.80-5.40); RDW 16.3 % (11.5-15.5)
[2020-01-24 07:54] LABS: Glucose,Whole Blood 76 mg/dL (75-99)
[2020-01-24 08:03] LABS: Calcium 8.3 mg/dL (8.4-10.2); Potassium 4.6 mmol/L (3.5-5.1)
[2020-01-24] MEDS: SODIUM CHLORIDE 0.9% 1,000 ML IV SCH ×3 (10:35→21:32)
[2020-01-24 12:06] LABS: Glucose,Whole Blood 84 mg/dL (75-99)
[2020-01-24] MEDS ORDERED: ALPRAZolam 0.5 MG TAB PO PRN (12:12)
--- NOTE | 2020-01-24 12:39 | P.HPIM ---
History of Present Illness Patient is a pleasant 55-year-old obese female was transferred from [facility] for partial small bowel obstruction with multiple areas of possible incarceration of the ventral hernia. Patient wasn't admitted with abdominal been moderate in severity bilateral lower quadrants along with nausea vomiting and has been going on for about a day. Patient abdominal pain significantly improved patient presently has an NG tube which is clamped now not draining anymore. Patient had lactic acid of 2.7 which has come down. Patient was sta rted on clear liquid diet. Patient does have a bilateral pedal edema chronic venous stasis dermatosis for which patient is on Lasix patient doesn't have any history of heart failure patient is presently on IV fluids because of lactic acidosis and this Lasix is being held patient pain is better feeling better. Patient denied any fever chills Review of Systems REVIEW OF SYSTEMS: CONSTITUTIONAL: No fever, no malaise, no fatigue. HEENT: No recent visual problems or hearing problems. Denied any sore throat. CARDIOVASCULAR: No chest pain, orthopnea, PND, no palpitations, no syncope. PULMONARY: No shortness of breath, no cough, no hemoptysis. GASTROINTESTINAL: As mentioned in HPI NEUROLOGICAL: No headaches, no weakness, no numbness. HEMATOLOGICAL: Denies any bleeding or petechiae. GENITOURINARY: Denies any burning micturition, frequency, or urgency. MUSCULOSKELETAL/RHEUMATOLOGICAL: Denies any joint pain, swelling, or any muscle pain. ENDOCRINE: Denies any polyuria or polydipsia. The rest of the 14-point review of systems is negative. Past Medical History Past Medical History: Diabetes Mellitus, GERD/Reflux, Hypertension, Osteoarthritis (OA) Additional Past Medical History / Comment(s): Depression. Super morbid obesity History of Any Multi-Drug Resistant Organisms: None Reported Past Surgical History: Section, Cholecystectomy, Hernia Repair, Hysterectomy Past Anesthesia/Blood Transfusion Reactions: No Reported Reaction Past Psychological History: Depression Smoking Status: Former smoker Past Alcohol Use History: None Reported Past Drug Use History: None Reported - Past Family History Mother Family Medical History: Myocardial Infarction ([place]) Father Family Medical History: Cancer Medications and Allergies Home Medications Medication Instructions Recorded Confirmed Type ALPRAZolam [Xanax] 0.5 mg PO TID 01/29/18 01/24/20 History ARIPiprazole [Abilify] 5 mg PO DAILY 01/29/18 01/24/20 History DULoxetine HCL [Cymbalta] 60 mg PO BID 01/29/18 01/24/20 History Gabapentin [Neurontin] 400 mg PO TID 01/29/18 01/24/20 History Lisinopril [Zestril] 10 mg PO DAILY 01/29/18 01/24/20 History Ondansetron [Zofran] 4 mg PO Q8HR PRN 01/29/18 01/24/20 History Pravastatin Sodium [Pravachol] 20 mg PO HS 01/29/18 01/24/20 History metFORMIN HCL 1,000 mg PO BID 01/29/18 01/24/20 History Famotidine 40 mg PO DAILY 12/06/19 01/24/20 History HYDROcodone/APAP 7.5-325MG [[place] 1 tab PO TID PRN 12/06/19 01/24/20 History 7.5-325] Humulin R 500u/Ml Vial (Pump) 2.3 unit SQ CONTINUOUS 12/06/19 01/24/20 History Isosorbide Dinitrate 10 mg PO BID 12/06/19 01/24/20 History Liraglutide [Victoza 2-Brenden] 1.8 mg SQ DAILY 12/06/19 01/24/20 History Pioglitazone HCl 15 mg PO DAILY 12/06/19 01/24/20 History Nystatin 100,000 Unit/gm Powd 1 applic TOPICAL BID applic 12/09/19 01/24/20 Rx [Mycostatin Powder] Furosemide [Lasix] 40 mg PO BID 01/24/20 01/24/20 History Allergies Allergy/AdvReac Type Severity Reaction Status Date / Time cephalexin monohydrate AdvReac Nausea & Verified 12/06/19 18:32 [From Keflex] Vomiting Physical Exam Vitals: Vital Signs Temp Pulse Pulse Resp BP BP Pulse Ox 01/24/20 08:00 92 24 01/24/20 05:41 98.0 F 92 24 136/74 93 L 01/23/20 23:00 98.3 F 84 22 125/73 100 01/23/20 22:39 75 16 123/53 98 01/23/20 20:30 133/58 01/23/20 20:26 98 F 90 18 Intake and Output 01/23/20 01/24/20 01/24/20 22:59 06:59 14:59 Intake Total 1100 0 Output Total 300 Balance 800 0 Intake: Intake, IV Titration 1100 Amount Piperacillin-Tazobactam 3 100 .375 gm In Sodium Chloride 0.9% 100 ml @ 25 mls/hr IVPB Q8HR [facility] Rx# :[id number] Sodium Chloride 0.9% 1, 1000 000 ml @ 999 mls/hr IV . Q1H1M ONE Rx#:[id number] Oral 0 Output: Gastric Drainage 300 Other: Voiding Method Bedpan Bedpan # Bowel Movements 1 Weight 149.685 kg 149.685 kg PHYSICAL EXAMINATION: GENERAL: The patient is alert and oriented x3, not in any acute distress. Very obese HEENT: Pupils are round and equally reacting to light. EOMI. No scleral icterus. No conjunctival pallor. Normocephalic, atraumatic. No pharyngeal erythema. No thyromegaly. CARDIOVASCULAR: S1 and S2 present. No murmurs, rubs, or gallops. PULMONARY: Chest is clear to auscultation, no wheezing or crackles. ABDOMEN: Soft, nontender, nondistended, sluggish bowel sounds but patient was passing gas. No palpable organomegaly. MUSCULOSKELETAL: No joint swelling or deformity. EXTREMITIES: No cyanosis, clubbing, or pedal edema. NEUROLOGICAL: Gross neurological examination did not reveal any focal deficits. SKIN: No rashes. Results CBC & Chem 7: 01/24/20 06:26 01/24/20 06:26 Labs: Abnormal Lab Results - Last 24 Hours (Table) 01/23/20 01/23/20 01/23/20 Range/Units 21:39 21:39 21:39 RBC 3.65 L (3.80-5.40) m/uL Hgb 9.3 L (11.4-16.0) gm/dL Hct 30.6 L (34.0-46.0) % MCHC 30.5 L (31.0-37.0) g/dL RDW 16.5 H (11.5-15.5) % Neutrophils # 7.9 H (1.3-7.7) k/uL Sodium 133 L (137-145) mmol/L BUN 26 H (7-17) mg/dL Glucose (74-99) mg/dL POC Glucose (mg/dL) (75-99) mg/dL Plasma Lactic Acid Pato 2.4 H* (0.7-2.0) mmol/L Calcium (8.4-10.2) mg/dL AST 46 H (14-36) U/L Albumin 2.9 L (3.5-5.0) g/dL 01/24/20 01/24/20 01/24/20 Range/Units 06:26 06:26 07:06 RBC 3.57 L (3.80-5.40) m/uL Hgb 9.6 L (11.4-16.0) gm/dL Hct 30.5 L (34.0-46.0) % MCHC (31.0-37.0) g/dL RDW 16.3 H (11.5-15.5) % Neutrophils # (1.3-7.7) k/uL Sodium 136 L (137-145) mmol/L BUN 27 H (7-17) mg/dL Glucose 43 L* (74-99) mg/dL POC Glucose (mg/dL) 55 L (75-99) mg/dL Plasma Lactic Acid Pato (0.7-2.0) mmol/L Calcium 8.3 L (8.4-10.2) mg/dL AST (14-36) U/L Albumin (3.5-5.0) g/dL Thrombosis Risk Factor Assmnt - Choose All That Apply Each Factor Represents 1 point: Age 41-60 years, Medical pt on bed rest, Minor surgery planned, Obesity (BMI >25), Swollen legs (current) Thrombosis Risk Factor Assessment Total Risk Factor Score: 5 Thrombosis Risk Factor Assessment Level: High Risk Assessment and Plan Plan: Partial small bowel resection with ventral hernia low consulted of incarceration: Patient is feeling better NG tube is clamped patient will be started on diet general surgery evaluated the patient continue with IV fluids and continued bowel rest. -Type 2 diabetes mellitus: Patient usually uses pump she can resume using pump but her oral hyperglycemic agents will be held and -Assess visual reflux disease -Hypertension -Obesity -Depression -Chronic venous stasis with dermatosis and pedal edema chronic DVT prophylaxis with Lovenox
[2020-01-24] MEDS: [UNRECOGNIZED DRUG - OTHER] SQ SCH (12:57)
[2020-01-24] MEDS: INSULIN REGULAR SQ SCH (12:57)
--- NOTE | 2020-01-24 12:57 | P.GSCN ---
History of Present Illness Consult date: 01/24/20 History of present illness: Patient seen and evaluated. Patient is a 55-year-old female presents secondary to small bowel obstruction. She has personal history of multiple small bowel obstructions in a ventral hernia. She presents to multiple comorbidities including super morbid obesity, BMI 60.4. She has poor recollection with regards to her last surgical operation. Since admission, she had nasogastric tube decompression reports moderate improvement of her abdominal pain. She is now passing flatus. Patient has been all beyond 2-3 days. General surgery is consulted regarding her small bowel obstruction. HEENT: NG tube with light green drainage ABDOMEN: Protuberant, soft, no peritonitis STUDIES: CT of the abdomen and pelvis independently reviewed demonstrating multiple lower abdominal incisional hernias. Small bowel dilated. No evidence of free air. His my personal interpretation. PLAN: 1. Clinically, she has a remarkable improvement with nasogastric tube, conservative management. 2. May start liquid diet prior to discontinuing of her nasogastric tube. 3. She she tolerated her nasogastric tube and clear liquid diet, may discontinue NG today. 4. Pending clinical response, patient may be discharged in 24-48 hours on full liquid diet Past Medical History Past Medical History: Diabetes Mellitus, GERD/Reflux, Hypertension, Osteoarthritis (OA) Additional Past Medical History / Comment(s): Depression. Super morbid obesity History of Any Multi-Drug Resistant Organisms: None Reported Past Surgical History: Section, Cholecystectomy, Hernia Repair, Hysterectomy Past Anesthesia/Blood Transfusion Reactions: No Reported Reaction Past Psychological History: Depression Smoking Status: Former smoker Past Alcohol Use History: None Reported Past Drug Use History: None Reported - Past Family History Mother Family Medical History: Myocardial Infarction ([place]) Father Family Medical History: Cancer Medications and Allergies Home Medications Medication Instructions Recorded Confirmed Type ALPRAZolam [Xanax] 0.5 mg PO TID 01/29/18 01/24/20 History ARIPiprazole [Abilify] 5 mg PO DAILY 01/29/18 01/24/20 History DULoxetine HCL [Cymbalta] 60 mg PO BID 01/29/18 01/24/20 History Gabapentin [Neurontin] 400 mg PO TID 01/29/18 01/24/20 History Lisinopril [Zestril] 10 mg PO DAILY 01/29/18 01/24/20 History Ondansetron [Zofran] 4 mg PO Q8HR PRN 01/29/18 01/24/20 History Pravastatin Sodium [Pravachol] 20 mg PO HS 01/29/18 01/24/20 History metFORMIN HCL 1,000 mg PO BID 01/29/18 01/24/20 History Famotidine 40 mg PO DAILY 12/06/19 01/24/20 History HYDROcodone/APAP 7.5-325MG [[place] 1 tab PO TID PRN 12/06/19 01/24/20 History 7.5-325] Humulin R 500u/Ml Vial (Pump) 2.3 unit SQ CONTINUOUS 12/06/19 01/24/20 History Isosorbide Dinitrate 10 mg PO BID 12/06/19 01/24/20 History Liraglutide [Victoza 2-Brenden] 1.8 mg SQ DAILY 12/06/19 01/24/20 History Pioglitazone HCl 15 mg PO DAILY 12/06/19 01/24/20 History Nystatin 100,000 Unit/gm Powd 1 applic TOPICAL BID applic 12/09/19 01/24/20 Rx [Mycostatin Powder] Furosemide [Lasix] 40 mg PO BID 01/24/20 01/24/20 History Allergies Allergy/AdvReac Type Severity Reaction Status Date / Time cephalexin monohydrate AdvReac Nausea & Verified 12/06/19 18:32 [From Keflex] Vomiting Surgical - Exam Vital Signs Temp Pulse Resp 98 F 90 18 01/23/20 20:26 01/23/20 20:26 01/23/20 20:26 Results - Labs 01/24/20 06:26 01/24/20 06:26 Abnormal Lab Results - Last 24 Hours (Table) 01/23/20 01/23/20 01/23/20 Range/Units 21:39 21:39 21:39 RBC 3.65 L (3.80-5.40) m/uL Hgb 9.3 L (11.4-16.0) gm/dL Hct 30.6 L (34.0-46.0) % MCHC 30.5 L (31.0-37.0) g/dL RDW 16.5 H (11.5-15.5) % Neutrophils # 7.9 H (1.3-7.7) k/uL Sodium 133 L (137-145) mmol/L BUN 26 H (7-17) mg/dL Glucose (74-99) mg/dL POC Glucose (mg/dL) (75-99) mg/dL Plasma Lactic Acid Pato 2.4 H* (0.7-2.0) mmol/L Calcium (8.4-10.2) mg/dL AST 46 H (14-36) U/L Albumin 2.9 L (3.5-5.0) g/dL 01/24/20 01/24/20 01/24/20 Range/Units 06:26 06:26 07:06 RBC 3.57 L (3.80-5.40) m/uL Hgb 9.6 L (11.4-16.0) gm/dL Hct 30.5 L (34.0-46.0) % MCHC (31.0-37.0) g/dL RDW 16.3 H (11.5-15.5) % Neutrophils # (1.3-7.7) k/uL Sodium 136 L (137-145) mmol/L BUN 27 H (7-17) mg/dL Glucose 43 L* (74-99) mg/dL POC Glucose (mg/dL) 55 L (75-99) mg/dL Plasma Lactic Acid Pato (0.7-2.0) mmol/L Calcium 8.3 L (8.4-10.2) mg/dL AST (14-36) U/L Albumin (3.5-5.0) g/dL Diabetes panel 01/23/20 01/24/20 Range/Units 21:39 06:26 Sodium 133 L 136 L (137-145) mmol/L Potassium 4.9 4.6 (3.5-5.1) mmol/L Chloride 101 104 (98-107) mmol/L Carbon Dioxide 27 26 (22-30) mmol/L BUN 26 H 27 H (7-17) mg/dL Creatinine 0.90 1.03 (0.52-1.04) mg/dL Glucose 96 43 L* (74-99) mg/dL Calcium 8.4 8.3 L (8.4-10.2) mg/dL AST 46 H (14-36) U/L ALT 19 (4-34) U/L Alkaline Phosphatase 98 (38-126) U/L Total Protein 7.4 (6.3-8.2) g/dL Albumin 2.9 L (3.5-5.0) g/dL Calcium panel 01/23/20 01/24/20 Range/Units 21:39 06:26 Calcium 8.4 8.3 L (8.4-10.2) mg/dL Albumin 2.9 L (3.5-5.0) g/dL Pituitary panel 01/23/20 01/24/20 Range/Units 21:39 06:26 Sodium 133 L 136 L (137-145) mmol/L Potassium 4.9 4.6 (3.5-5.1) mmol/L Chloride 101 104 (98-107) mmol/L Carbon Dioxide 27 26 (22-30) mmol/L BUN 26 H 27 H (7-17) mg/dL Creatinine 0.90 1.03 (0.52-1.04) mg/dL Glucose 96 43 L* (74-99) mg/dL Calcium 8.4 8.3 L (8.4-10.2) mg/dL Adrenal panel 01/23/20 01/24/20 Range/Units 21:39 06:26 Sodium 133 L 136 L (137-145) mmol/L Potassium 4.9 4.6 (3.5-5.1) mmol/L Chloride 101 104 (98-107) mmol/L Carbon Dioxide 27 26 (22-30) mmol/L BUN 26 H 27 H (7-17) mg/dL Creatinine 0.90 1.03 (0.52-1.04) mg/dL Glucose 96 43 L* (74-99) mg/dL Calcium 8.4 8.3 L (8.4-10.2) mg/dL Total Bilirubin 0.9 (0.2-1.3) mg/dL AST 46 H (14-36) U/L ALT 19 (4-34) U/L Alkaline Phosphatase 98 (38-126) U/L Total Protein 7.4 (6.3-8.2) g/dL Albumin 2.9 L (3.5-5.0) g/dL
[2020-01-24] MEDS: ISOSORBIDE DINITRATE 10 MG TAB PO SCH (15:08)
[2020-01-24] MEDS: GABAPENTIN 400 MG CAP PO SCH ×2 (15:08→21:32)
[2020-01-24 17:23] LABS: Glucose,Whole Blood 159 mg/dL (75-99)
[2020-01-24 20:20] LABS: Glucose,Whole Blood 210 mg/dL (75-99)
[2020-01-24 20:46] VITALS: RESP 18
[2020-01-24] MEDS ORDERED: PRAVASTATIN SODIUM 20 MG TAB PO SCH (21:00)
[2020-01-24] MEDS: NYSTATIN 100,000 UNIT/GM POWD 15 GM TOPICAL SCH (21:32)
[2020-01-24] MEDS: DULoxetine HCL 60 MG CAPSULE.DR PO SCH (21:32)
[2020-01-25 06:21] VITALS: BP 142/69; PULSE 75; TEMP 98.2
[2020-01-25 07:10] LABS: Anisocytosis Slight; HCT 29.5 % (34.0-46.0); HGB 8.9 gm/dL (11.4-16.0); Hypochromasia Marked; MCH 25.8 pg (25.0-35.0); MCHC 30.3 g/dL (31.0-37.0); MCV 85.2 fL (80.0-100.0); Mean Platelet Volume 8.5; Platelet Count 153 k/uL (150-450); RBC 3.46 m/uL (3.80-5.40); RDW 16.7 % (11.5-15.5); WBC 9.3 k/uL (3.8-10.6)
[2020-01-25 07:20] LABS: Glucose,Whole Blood 51 mg/dL (75-99)
[2020-01-25 07:22] LABS: Calcium 8.1 mg/dL (8.4-10.2); Potassium 3.9 mmol/L (3.5-5.1)
[2020-01-25 07:28] LABS: Glucose,Whole Blood 68 mg/dL (75-99)
[2020-01-25 07:54] LABS: Glucose,Whole Blood 129 mg/dL (75-99)
[2020-01-25] MEDS ORDERED: FAMOTIDINE 20 MG TAB PO SCH (09:00)
[2020-01-25] MEDS ORDERED: ARIPiprazole 5 MG TAB PO SCH (09:00)
[2020-01-25] MEDS ORDERED: LISINOPRIL 10 MG TAB PO SCH (09:00)
[2020-01-25] MEDS ORDERED: ENOXAPARIN 40 MG/0.4 ML SYRINGE SQ SCH (09:00)
[2020-01-25] MEDS: PIPERACILLIN-TAZOBACTAM 3.375 GM in SODIUM CHLORIDE 0.9% 100 ML IVPB SCH (09:58)
[2020-01-25] MEDS: DULoxetine HCL 60 MG CAPSULE.DR PO SCH (09:59)
[2020-01-25] MEDS: GABAPENTIN 400 MG CAP PO SCH (09:59)
[2020-01-25] MEDS: ISOSORBIDE DINITRATE 10 MG TAB PO SCH (09:59)
[2020-01-25] MEDS: NYSTATIN 100,000 UNIT/GM POWD 15 GM TOPICAL SCH (10:00)
[2020-01-25] MEDS ORDERED: TAMSULOSIN 0.4 MG CAP.ER.24H PO STA (11:03)
[2020-01-25 11:57] LABS: Glucose,Whole Blood 146 mg/dL (75-99)
--- NOTE | 2020-01-25 11:58 | P.PN ---
Subjective Progress Note Date: 01/25/20 CHIEF COMPLAINT: Small bowel obstruction HISTORY OF PRESENT ILLNESS: Patient examined at the bedside this morning with Dr. Al. Patient is tolerating clear liquid diet. NG tube was discontinued overnight. She denies nausea or vomiting. She is passing flatus. Vital signs stable. She is afebrile. PHYSICAL EXAM: VITAL SIGNS: Reviewed GENERAL: Well-developed in no acute distress. HEENT: No sclera icterus. Extraocular movements grossly intact. Moist buccal mucosa. Head is atraumatic, normocephalic. Hears conversational speech. No nasal drainage. NECK: Supple without lymphadenopathy. CHEST: Non-labored respirations and equal bilateral excursions. CARDIOVASCULAR: Regular rate with regular rhythm. Palpable 2+ radial pulses. ABDOMEN: Obese. Soft. Nondistended. Nontender. MUSCULOSKELETAL: No clubbing or cyanosis. NEUROLOGIC: No focal or lateralizing signs. Cranial nerves II through XII grossly intact. PSYCH: Appropriate affect. Alert and oriented to person, place and time. SKIN: Well perfused. Good skin turgor. ASSESSMENT: 1. Small bowel obstruction PLAN: -Advance diet -If patient tolerates lunch, she may be discharged home today from a surgical standpoint. Will defer to internal medicine Nurse practitioner note has been reviewed by physician. Signing provider agrees with the documented findings, assessment, and plan of care. Objective - Vital Signs Vital signs: Vital Signs Temp 98.2 F 01/25/20 06:20 Pulse 75 01/25/20 06:20 Resp 18 01/25/20 06:20 BP 142/69 01/25/20 06:20 Pulse Ox 92 L 01/25/20 06:20 Intake & Output 01/24/20 01/25/20 01/25/20 18:59 06:59 18:59 Intake Total 2220 2075 Output Total 3200 400 Balance -980 1675 Intake: Intake, IV Titration 1000 1350 Amount Piperacillin-Tazobactam 3 200 200 .375 gm In Sodium Chloride 0.9% 100 ml @ 25 mls/hr IVPB Q8HR KASANDRA Rx# :[id number] Sodium Chloride 0.9% 1, 800 1150 000 ml @ 100 mls/hr IV . Q10H KASANDRA Rx#:[id number] Oral 1220 725 Output: Urine 3200 400 Straight 1600 Other: Voiding Method Bedpan Indwelling Catheter # Voids 0 # Bowel Movements 1 - Labs CBC & Chem 7: 01/25/20 06:39 01/25/20 06:39 Labs: Abnormal Lab Results - Last 24 Hours (Table) 01/24/20 01/24/20 01/25/20 Range/Units 17:20 20:10 06:39 RBC 3.46 L (3.80-5.40) m/uL Hgb 8.9 L (11.4-16.0) gm/dL Hct 29.5 L (34.0-46.0) % MCHC 30.3 L (31.0-37.0) g/dL RDW 16.7 H (11.5-15.5) % BUN (7-17) mg/dL Creatinine (0.52-1.04) mg/dL Glucose (74-99) mg/dL POC Glucose (mg/dL) 159 H 210 H (75-99) mg/dL Calcium (8.4-10.2) mg/dL 01/25/20 01/25/20 01/25/20 Range/Units 06:39 07:10 07:27 RBC (3.80-5.40) m/uL Hgb (11.4-16.0) gm/dL Hct (34.0-46.0) % MCHC (31.0-37.0) g/dL RDW (11.5-15.5) % BUN 27 H (7-17) mg/dL Creatinine 1.22 H (0.52-1.04) mg/dL Glucose 46 L* (74-99) mg/dL POC Glucose (mg/dL) 51 L 68 L (75-99) mg/dL Calcium 8.1 L (8.4-10.2) mg/dL 01/25/20 Range/Units 07:48 RBC (3.80-5.40) m/uL Hgb (11.4-16.0) gm/dL Hct (34.0-46.0) % MCHC (31.0-37.0) g/dL RDW (11.5-15.5) % BUN (7-17) mg/dL Creatinine (0.52-1.04) mg/dL Glucose (74-99) mg/dL POC Glucose (mg/dL) 129 H (75-99) mg/dL Calcium (8.4-10.2) mg/dL
[2020-01-25] MEDS: INSULIN REGULAR SQ SCH (13:45)
[2020-01-25] MEDS: [UNRECOGNIZED DRUG - OTHER] SQ SCH (13:45)
--- NOTE | 2020-01-25 16:19 | P.DS ---
Providers Date of admission: 01/23/20 22:08 Expected date of discharge: 01/25/20 Attending physician: Tanner Ty Consults: 01/23/20 22:58 Consult Physician Urgent Consulting Provider: Kitty Al Consult Reason/Comments: acute abd pain, partial sbo, incarcerated vental hernia Do you want consulting provider notified?: Already Contacted Primary care physician: Esteban [facility] Course: Final Diagnosis -Partial small bowel resection with ventral hernia incarceration -Type 2 diabetes mellitus -Gastro-Esophageal reflux disease -Hypertension -Obesity -Depression -Chronic venous stasis with dermatosis and pedal edema chronic -DVT prophylaxis Discharge disposition Patient is being discharged in a stable condition with guarded prognosis to home. Patient will follow-up with FRANKLIN Barry in the outpatient setting upon discharge. Patient instructed to continue on a full liquid diet and slowly advance to low fiber diet in the outpatient setting. Patient provided a prescription for repeat BMP to monitor kidney functions. Total time taken is 35 minutes. History of present illness This is a 55-year-old female who was recently admitted with partial small bowel obstruction with multiple areas of possible incarceration of the ventral hernia and was being closely monitored. Patient was also noted to have some intermittent nausea and vomiting noted prior to transfer from [facility]. Patient was evaluated by surgery and an NG tube was initiated. Patient was started on a clear liquid diet and tolerated well and NG tube was discontinued last night. Patient is passing gas and having bowel movements. Patient normally takes Lasix but will place on hold until follow-up with primary care provider. Patient's creatinine was slightly elevated at 1.22 and a prescription was provided for repeat labs to monitor kidney functions. Patient continued to have some urinary retention requiring straight catheterization throughout the night although Guzman was removed and a one-time dose of Flomax was given and patient urinated with no difficulties. Patient currently on full liquids and instructed to advance slowly to low fiber diet over the next couple of days. Patient was on IV fluids for elevated lactic acid which improved and patient is feeling much better asking to go home today. Patient had an episode of low blood sugar this morning although quickly improved and will continue to hold metformin in the outpatient setting until follow-up. Patient will continue using her insulin pump and instructed to monitor blood sugars before meals at bedtime and keep a diary for primary care follow-up. Currently no reports of chest pain, shortness of breath, or palpitations. Patient is afebrile. No reports of nausea or vomiting and patient is tolerating diet. Patient will be discharged today. On exam vital signs are stable. Temp is 98.2F, pulse is 75, respirations are 18, blood pressure is 142/69, oxygen saturation is 92% on room air. Cardio S1, S2 are present. Respiratory system shows clear to auscultation. Abdomen is soft and nontender. Nervous system shows no focal deficits. Please refer to medication reconciliation sheet for a list of medications. Patient Condition at Discharge: Stable Plan - Discharge Summary Discharge Rx Participant: No New Discharge Prescriptions: Continue ARIPiprazole [Abilify] 5 mg PO DAILY ALPRAZolam [Xanax] 0.5 mg PO TID Gabapentin [Neurontin] 400 mg PO TID DULoxetine HCL [Cymbalta] 60 mg PO BID Pravastatin Sodium [Pravachol] 20 mg PO HS Lisinopril [Zestril] 10 mg PO DAILY Ondansetron [Zofran] 4 mg PO Q8HR PRN PRN Reason: Nausea Humulin R 500u/Ml Vial (Pump) 2.3 unit SQ CONTINUOUS HYDROcodone/APAP 7.5-325MG [[place] 7.5-325] 1 tab PO TID PRN PRN Reason: Pain Famotidine 40 mg PO DAILY Isosorbide Dinitrate 10 mg PO BID Liraglutide [Victoza 2-Brenden] 1.8 mg SQ DAILY Nystatin 100,000 Unit/gm Powd [Mycostatin Powder] 1 applic TOPICAL BID applic Discontinued metFORMIN HCL 1,000 mg PO BID Pioglitazone HCl 15 mg PO DAILY Furosemide [Lasix] 40 mg PO BID Discharge Medication List ALPRAZolam [Xanax] 0.5 mg PO TID 01/29/18 [History] ARIPiprazole [Abilify] 5 mg PO DAILY 01/29/18 [History] DULoxetine HCL [Cymbalta] 60 mg PO BID 01/29/18 [History] Gabapentin [Neurontin] 400 mg PO TID 01/29/18 [History] Lisinopril [Zestril] 10 mg PO DAILY 01/29/18 [History] Ondansetron [Zofran] 4 mg PO Q8HR PRN 01/29/18 [History] Pravastatin Sodium [Pravachol] 20 mg PO HS 01/29/18 [History] Famotidine 40 mg PO DAILY 12/06/19 [History] HYDROcodone/APAP 7.5-325MG [[place] 7.5-325] 1 tab PO TID PRN 12/06/19 [History] Humulin R 500u/Ml Vial (Pump) 2.3 unit SQ CONTINUOUS 12/06/19 [History] Isosorbide Dinitrate 10 mg PO BID 12/06/19 [History] Liraglutide [Victoza 2-Brenden] 1.8 mg SQ DAILY 12/06/19 [History] Nystatin 100,000 Unit/gm Powd [Mycostatin Powder] 1 applic TOPICAL BID applic 12/09/19 [Rx] Follow up Appointment(s)/Referral(s): Kitty Al MD [STAFF PHYSICIAN] - As Needed Brayden Muñoz MD [Primary Care Provider] - 02/07/20 6:30 pm Ambulatory/Diagnostic Orders: Basic Metabolic Panel [LAB.AMB] Time Frame: 2 Days, Location: None Selected Patient Instructions/Handouts: Bowel Obstruction (DC), GI (Gastrointestinal) Soft Diet (DC) Activity/Diet/Wound Care/Special Instructions: Activity Limited until follow-up Diet soft chopped Follow-up with primary care provider Continue to monitor blood sugars before meals at bedtime and hold oral diabetic medications until follow-up Continue holding Lasix until primary care follow-up Repeat labs in 2-3 days Discharge Disposition: HOME SELF-CARE
== END 2020-01-25 16:23 | disposition home or self-care (01) | DRG 394 ==
LOC: EC 20:23 → 5NMEDONC 22:08
PROVIDERS: ADMIT Internal Medicine; ATTEND Internal Medicine
PROC: 0D9670Z Drainage of Stomach with Drainage Device, Via Natural or Artificial Opening (ICD-10-PCS; principal; 2020-01-23)
DX: K43.6 Other and unspecified ventral hernia with obstruction, without gangrene (principal); Z68.44 Body mass index [BMI] 60.0-69.9, adult; E87.2 Acidosis; Z11.59 Encounter for screening for other viral diseases; E11.65 Type 2 diabetes mellitus with hyperglycemia; E66.01 Morbid (severe) obesity due to excess calories; K21.9 Gastro-esophageal reflux disease without esophagitis; I10 Essential (primary) hypertension; M19.90 Unspecified osteoarthritis, unspecified site; F32.9 Major depressive disorder, single episode, unspecified; I87.8 Other specified disorders of veins; R60.0 Localized edema; L98.8 Other specified disorders of the skin and subcutaneous tissue; K43.2 Incisional hernia without obstruction or gangrene; R33.9 Retention of urine, unspecified; Z79.899 Other long term (current) drug therapy; Z79.84 Long term (current) use of oral hypoglycemic drugs; Z90.49 Acquired absence of other specified parts of digestive tract; Z98.890 Other specified postprocedural states; Z90.710 Acquired absence of both cervix and uterus; Z87.891 Personal history of nicotine dependence; Z88.1 Allergy status to other antibiotic agents; Z82.49 Family history of ischemic heart disease and other diseases of the circulatory system; Z80.9 Family history of malignant neoplasm, unspecified
CPT/HCPCS: 36415; 80048; 80053; 83605; 85025; 85027; 99284

== ENCOUNTER 2020-05-14 19:58 | Inpatient (IN) | payer MEDICARE, OTHER ==
--- NOTE | 2020-05-14 20:29 | ED ---
General Adult HPI - General Stated complaint: sepsis Time Seen by Provider: 05/14/20 20:13 - History of Present Illness Initial comments: Dictation was produced using [email or web address] dictation software. please excuse any grammatical, word or spelling errors. This patient was cared for during a federal and state declared state of emergency secondary to Covid 19 Chief Complaint: Patient is 55-year-old female she was sent here from [place] for further care. History of Present Illness: She is 55-year-old female she was sent in via EMS from [place]. Patient initially presented to the emergency department for altered mental status. She was initially seen there found to be hypotensive. She was given intravenous fluids. She initially presented for altered mental status. Allegedly family members is concerned she is having a stroke. She did appear to be lethargic. Patient was evaluated and [place] where she was found to have findings concerning for sepsis. Patient reports that she was recently diagnosed with heart failure. She does report constitutional symptoms. Patient is chronically debilitated and is morbidly is has a lot of skin issues due to body habitus. There is concern perhaps patient was suffering from pneumonia. She did receive antibiotics. The ROS documented in this emergency department record has been reviewed and confirmed by me. Those systems with pertinent positive or negative responses holcomb ve been documented in the HPI. All other systems are other negative and/or noncontributory. PHYSICAL EXAM: General Impression: Alert and oriented x3, not in acute distress, lethargic, morbidly obese HEENT: Normocephalic atraumatic, extra-ocular movements intact, pupils equal and reactive to light bilaterally, mucous membranes moist. Cardiovascular: Heart regular rate and rhythm Chest: Able to complete full sentences, no retractions, no tachypnea Abdomen: abdomen soft, non-tender, non-distended, no organomegaly Musculoskeletal: Pulses present and equal in all extremities, no peripheral edema Motor: no focal deficits noted Neurological: CN II-XII grossly intact, no focal motor or sensory deficits noted Skin: Chronic, malodorous appearing wounds to the perineum and medial proximal thighs ED course: 55-year-old female presents to our emergency department via transfer from [facility]. Vital signs upon arrival shows rectal temperature 101, rest of vital signs within acceptable limits. There was concern from transferring doctor that patient was hypotensive. She had 2 large-bore IVs placed. She did see broad-spectrum antibiotics. Transfer documentation was reviewed. Patient is leukocytosis of 21.4. Hemoglobin 9.1. Platelets of 190. Metabolic panel shows sodium 135, potassium 5.5. No anion gap acidosis. Liver enzymes are unremarkable. Creatinine is 2.3. Troponin is elevated 0.175 lactic acid level 3.3 urinalysis is unremarkable. Computed tomography scan of the head did not show an acute processes. Chest imaging showed bibasilar infiltrates probable aspiration related. Patient received IV vancomycin and meropenem. Case was discussed with wind farm operations manager Dr. Polanco who is willing to accept patient's care to the ICU. Patient has stable blood pressures. She is given more intravenous fluids. At this point there is no clear indication for central venous catheter placement or pressor administration. There is some concern for steroid insufficiency patient given hydrocortisone. EKG interpretation: Ventricular rate 83, normal sinus rhythm,. Interval 176, QRS 80, QTc 462. No KS prolongation, no QTC prolongation, no ST or T-wave changes noted. Overall, this EKG is unremarkable - Related Data Home Medications Medication Instructions Recorded Confirmed ALPRAZolam [Xanax] 0.5 mg PO TID 01/29/18 01/24/20 ARIPiprazole [Abilify] 5 mg PO DAILY 01/29/18 01/24/20 DULoxetine HCL [Cymbalta] 60 mg PO BID 01/29/18 01/24/20 Gabapentin [Neurontin] 400 mg PO TID 01/29/18 01/24/20 Ondansetron [Zofran] 4 mg PO Q8HR PRN 01/29/18 01/24/20 Pravastatin Sodium [Pravachol] 20 mg PO HS 01/29/18 01/24/20 lisinopriL [Zestril] 10 mg PO DAILY 01/29/18 01/24/20 Famotidine 40 mg PO DAILY 12/06/19 01/24/20 HYDROcodone/APAP 7.5-325MG [[place] 1 tab PO TID PRN 12/06/19 01/24/20 7.5-325] Humulin R 500u/Ml Vial (Pump) 2.3 unit SQ CONTINUOUS 12/06/19 01/24/20 Isosorbide Dinitrate 10 mg PO BID 12/06/19 01/24/20 Liraglutide [Victoza 2-Brenden] 1.8 mg SQ DAILY 12/06/19 01/24/20 Previous Rx's Medication Instructions Recorded Nystatin 100,000 Unit/gm Powd 1 applic TOPICAL BID applic 12/09/19 [Mycostatin Powder] Allergies Allergy/AdvReac Type Severity Reaction Status Date / Time cephalexin monohydrate AdvReac Nausea & Verified 12/06/19 18:32 [From Keflex] Vomiting Review of Systems ROS Statement: Those systems with pertinent positive or pertinent negative responses have been documented in the HPI. ROS Other: All systems not noted in ROS Statement are negative. Past Medical History Past Medical History: Diabetes Mellitus, GERD/Reflux, Hypertension, Osteoarthritis (OA) Additional Past Medical History / Comment(s): Depression. Super morbid obesity History of Any Multi-Drug Resistant Organisms: None Reported Past Surgical History: Section, Cholecystectomy, Hernia Repair, Hysterectomy Past Anesthesia/Blood Transfusion Reactions: No Reported Reaction Past Psychological History: Depression Past Alcohol Use History: None Reported Past Drug Use History: None Reported - Past Family History Mother Family Medical History: Myocardial Infarction ([place]) Father Family Medical History: Cancer Course Vital Signs 05/14/20 20:00 Temperature 98.5 F Pulse Rate 82 Respiratory 16 Rate Blood Pressure 101/41 O2 Sat by Pulse 95 Oximetry Medical Decision Making - Lab Data Lab Results 05/14/20 Range/Units 20:43 Sample Site L radial ABG pH 7.40 (7.35-7.45) ABG pCO2 34 L (35-45) mmHg ABG pO2 104 (83-108) mmHg ABG HCO3 21 (21-25) mmol/L ABG Total CO2 22 (19-24) mmol/L ABG O2 Saturation 98.6 H (94-97) % ABG Base Excess -3.7 mmol/L Alonso Test Yes FiO2 36 % Disposition Clinical Impression: Lethargy Disposition: ADMITTED IP TO THIS [facility] Condition: Critical Referrals: Brayden Muñoz MD [Primary Care Provider] - 1-2 days Decision Time: 20:55
[2020-05-14] MEDS ORDERED: SODIUM CHLORIDE 0.9% 1,000 ML IV STA (20:37)
[2020-05-14 20:46] LABS: ABG Base Excess -3.7 mmol/L; ABG HCO3 21 mmol/L (21-25); ABG Oxygen Saturation 98.6 % (94-97); ABG PCO2 34 mmHg (35-45); ABG PO2 104 mmHg (83-108); ABG TCO2 22 mmol/L (19-24); Allen Test Performed? Yes
[2020-05-14] MEDS ORDERED: HYDROCORTISONE SUCCINATE 100 MG/2 ML VIAL IV STA (20:55)
[2020-05-14 21:20] LABS: Anisocytosis Slight; Basophils % (A) 0 %; Eosinophils # (A) 0.1 k/uL (0-0.7); Eosinophils % (A) 0 %; HCT 27.8 % (34.0-46.0); HGB 8.4 gm/dL (11.4-16.0); Hypochromasia Moderate; Lymphocytes # (A) 1.9 k/uL (1.0-4.8); Lymphocytes % (A) 10 %; MCH 22.8 pg (25.0-35.0); MCHC 30.4 g/dL (31.0-37.0); MCV 75.2 fL (80.0-100.0); Mean Platelet Volume 9.1; Microcytosis Moderate; Monocytes # (A) 0.5 k/uL (0-1.0); Monocytes % (A) 3 %; Neutrophils # (A) 15.2 k/uL (1.3-7.7); Neutrophils % (A) 85 %; Platelet Count 155 k/uL (150-450); RDW 17.4 % (11.5-15.5); WBC 17.9 k/uL (3.8-10.6)
[2020-05-14 21:43] LABS: Calcium 8.3 mg/dL (8.4-10.2); Potassium 5.5 mmol/L (3.5-5.1)
[2020-05-14 22:50] LABS: Glucose,Whole Blood 74 mg/dL (75-99)
--- NOTE | 2020-05-15 00:03 | CT ---
EXAMINATION TYPE: CT brain wo con DATE OF EXAM: 05/14/2020 COMPARISON: Today HISTORY: AMS CT DLP: 1161.4 mGycm Automated exposure control for dose reduction was used. Ventricles have normal size. There is no mass effect nor midline shift. There is no sign of intracran ial hemorrhage. The calvarium is intact. There is no evidence of cerebral edema. IMPRESSION: Negative unenhanced head CT scan. No change compared to exam at 5:30 PM.
[2020-05-15 02:03] LABS: Glucose,Whole Blood 92 mg/dL (75-99)
[2020-05-15] MEDS: INSULIN ASPART (NovoLOG) 100 UNIT/ML VIAL SQ SCH ×5 (02:05→21:09)
[2020-05-15 03:03] LABS: Appearance,Urine Cloudy (Clear); Bacteria,Urine Occasional /hpf; Bilirubin,Urine Negative (Negative); Blood,Urine Moderate (Negative); Budding Yeast,Urine Moderate /hpf; Color,Urine Yellow; Glucose,Urine (UA) Negative (Negative); Hyaline Casts,Urine 17 /lpf (0-2); Ketones,Urine Negative (Negative); Leukocyte Esterase,Urine Large (Negative); Mucus,Urine Rare /hpf; Nitrite,Urine Negative (Negative); PH, Urine 5.5 (5.0-8.0); Protein,Urine 2+ (Negative); RBC,Urine >182 /hpf (0-5); Specific Gravity,Urine 1.017 (1.001-1.035); Squamous Epithelial Cell,Urine 2 /hpf (0-4); Urobilinogen,Urine <2.0 mg/dL (<2.0); WBC,Urine 64 /hpf (0-5)
[2020-05-15 04:37] LABS: Anisocytosis Slight; Basophils % (A) 0 %; Eosinophils % (A) 0 %; HCT 27.5 % (34.0-46.0); HGB 8.1 gm/dL (11.4-16.0); Hypochromasia Marked; Lymphocytes # (A) 1.4 k/uL (1.0-4.8); Lymphocytes % (A) 9 %; MCH 23.5 pg (25.0-35.0); MCHC 29.4 g/dL (31.0-37.0); Mean Platelet Volume 8.8; Microcytosis Slight; Monocytes # (A) 0.6 k/uL (0-1.0); Monocytes % (A) 4 %; Neutrophils # (A) 13.8 k/uL (1.3-7.7); Neutrophils % (A) 86 %; Platelet Count 131 k/uL (150-450); RBC 3.44 m/uL (3.80-5.40)
[2020-05-15 04:48] LABS: Calcium 7.9 mg/dL (8.4-10.2); Potassium 5.8 mmol/L (3.5-5.1)
[2020-05-15] MEDS: SODIUM CHLORIDE 0.9% 1,000 ML IV SCH ×3 (06:24→21:19)
[2020-05-15 06:50] LABS: Glucose,Whole Blood 121 mg/dL (75-99)
[2020-05-15] MEDS ORDERED: VANCOMYCIN IV PER PHARMACY 1 EACH MISC MISCELLANE PRN (07:52)
[2020-05-15] MEDS ORDERED: PIPERACILLIN-TAZOBACTAM 3.375 GM in SODIUM CHLORIDE 0.9% 100 ML IVPB SCH (08:00)
--- NOTE | 2020-05-15 08:22 | XR ---
EXAMINATION TYPE: XR chest 1V portable DATE OF EXAM: 05/15/2020 COMPARISON: Prior chest x-ray 12/07/2019 HISTORY: Pneumonia TECHNIQUE: Single frontal view of the chest is obtained. FINDINGS: Patchy bibasilar increased attenuation persists. No evident pneumothorax. Interstitium is somewhat increased. Heart remains enlarged. Aorta is dense. IMPRESSION: Correlate for pneumonia versus possible congestive heart failure or volume overload, fol low-up is recommended.
[2020-05-15] MEDS ORDERED: VANCOMYCIN 2,500 MG in SODIUM CHLORIDE 0.9% 500 ML 500 ML IVPB ONE (09:00)
[2020-05-15] MEDS: PIPERACILLIN-TAZOBACTAM 3.375 GM in SODIUM CHLORIDE 0.9% 100 ML IVPB SCH ×2 (09:22→21:09)
[2020-05-15] MEDS: ARIPiprazole 5 MG TAB PO SCH (09:22)
[2020-05-15] MEDS: HEPARIN SODIUM,PORCINE 5,000 UNIT/ML 1 ML VIAL SQ SCH ×2 (09:22→17:27)
[2020-05-15] MEDS: GABAPENTIN 400 MG CAP PO SCH ×3 (09:23→21:09)
[2020-05-15] MEDS: DULoxetine HCL 60 MG CAPSULE.DR PO SCH ×2 (09:23→21:08)
[2020-05-15] MEDS: FAMOTIDINE 20 MG TAB PO SCH (09:23)
--- NOTE | 2020-05-15 09:50 | US ---
EXAMINATION TYPE: US venous doppler duplex LE DATE OF EXAM: 05/15/2020 9:05 AM COMPARISON: NONE CLINICAL HISTORY: rule out dvt. Difficult and limited exam due to patient body habitus SIDE PERFORMED: Bilateral TECHNIQUE: The lower extremity deep venous system is examined utilizing real time linear array sonog windy with graded compression, doppler sonography and color-flow sonography. VESSELS IMAGED: External Iliac Vein (EIV) Common Femoral Vein Deep Femoral Vein Greater Saphenous Vein * Femoral Vein Popliteal Vein Small Saphenous Vein * Proximal Calf Veins (* superficial vessels) Right Leg: Negative for DVT as visualized Left Leg: Negative for DVT as visualized. Unable to visualized left EIV or CFV due to patient body h abitus IMPRESSION: 1. Limited assessment as discussed above demonstrates no diagnostic evidence of DVT as visualized.
--- NOTE | 2020-05-15 10:17 | US ---
EXAMINATION TYPE: US kidneys/renal and bladder DATE OF EXAM: 05/15/2020 COMPARISON: CT 04/21/2014 CLINICAL HISTORY: KRIS. Difficult and limited exam due to patient body habitus EXAM MEASUREMENTS: Right Kidney: 13.9 x 7.0 x 6.2 cm Left Kidney: 12.0 x 6.9 x 5.4 cm Right Kidney: No hydronephrosis or masses seen Left Kidney: No hydronephrosis or masses seen Bladder: Patient has ritchie catheter There is no evidence for hydronephrosis at this point in time. No nephrolithiasis is seen. No kelsey s are identified. Cortical medullary differentiation is maintained. IMPRESSION: Renal sizes as described.
[2020-05-15 11:50] LABS: Glucose,Whole Blood 120 mg/dL (75-99)
--- NOTE | 2020-05-15 12:54 | ECHOF ---
Referral Reason: MEASUREMENTS -------- HEIGHT: 157.5 cm WEIGHT: 142.9 kg BP: RVIDd: 3.1 cm (< 3.3) IVSd: 1.2 cm (0.6 - 1.1) LVIDd: 5.1 cm (3.9 - 5.3) LVPWd: 1.5 cm (0.6 - 1.1) IVSs: 2.2 cm LVIDs: 2.8 cm LVPWs: 2.0 cm Ao Diam: 2.5 cm (2.0 - 3.7) LA Diam: 3.3 cm (2.7 - 3.8) MV EXCURSION: 15.662 mm (> 18.000) MV EF SLOPE: 56 mm/s (70 - 150) EPSS: 0.5 cm MV E Abdullahi: 0.85 m/s MV DecT: 289 ms MV A Abdullahi: 0.50 m/s MV E/A Ratio: 1.71 RAP: 5.00 mmHg RVSP: 20.18 mmHg FINDINGS -------- This was a technically difficult study with suboptimal views. The left ventricular size is normal. There is mild concentric left ventricular hypertrophy. Overa ll left ventricular systolic function is normal with, an EF between 55 - 60 %. The right ventricle is normal in size. The left atrial size is normal. The right atrial size is normal. Lumason used The aortic valve was not well visualized. The mitral valve was not well visualized. There is trace mitral regurgitation. The tricuspid valve was not well visualized. Mild tricuspid regurgitation present. Right ventricu lar systolic pressure is normal at < 35 mmHg. The pulmonic valve was not well visualized. The aortic root size is normal. IVC Not well visulized. CONCLUSIONS -------- 1. This was a technically difficult study with suboptimal views. 2. The left ventricular size is normal. 3. There is mild concentric left ventricular hypertrophy. 4. Overall left ventricular systolic function is normal with, an EF between 55 - 60 %. 5. Lumason used 6. There is trace mitral regurgitation. 7. Mild tricuspid regurgitation present. [employer] OPERATOR: Elsa Hooks [facility]
--- NOTE | 2020-05-15 13:44 | P.CNPUL ---
History of Present Illness Consult date: 05/15/20 Chief complaint: Altered mental status History of present illness: This is a 55-year-old female patient was transferred to us from [facility]. The patient was initiated taken to [facility] because of an altered mental status. In the ED, the patient was found to be altered in addition to hypotensive. She was started on IV fluids. The patient is quite lethargic and she was febrile with a temperature of 101. At that point I decided to transfer this patient to [facility]. The patient was seen in the ED. The patient was started on IV fluids. The patient received a total of 3 L of IV fluid in the form of normal saline. She was also started on broad- spectrum antibiotics including a combination of Merrem and vancomycin. The blood work that was done in the emergency showed leukocytosis with a white cell count of 21.4. The patient's hemoglobin was at 9.1. The patient was an acute kidney injury with a creatinine of 2.3. Troponin was at 0.175. Lactic acid level was 3.3. The UA was abnormal and the patient's urinalysis indicated possibility of underlying urinary tract infection. The chest x-ray also showed bibasilar pulmonary infiltrates which could relate to either pneumonia or atelectasis. The patient was in a normal sinus rhythm. On examination, the patient had increased swelling lower extremities and the patient had a clear area of cellulitis over the lateral aspect of the left lower extremity below the knee extending to the ankle and the skin was showing some sloughing and some superficial maceration. The area was hot and tender and was very highly suggestive underlying cellulitis. At the time of my evaluation this morning, the patient was still lethargic and somnolent. She was not on any pressors. She was given hydrocortisone in the emergency department. The blood gases done yesterday showed a pH of 7.4 with a pCO2 of 34 and pO2 of 104 and this was on FiO2 of 35%. Lactic acid level subsequently improved and is currently down to 1.2. Review of Systems ROS unobtainable: due to mental status Past Medical History Past Medical History: Heart Failure, Diabetes Mellitus, GERD/Reflux, Hypert ension, Osteoarthritis (OA) Additional Past Medical History / Comment(s): Depression, Super morbid obesity, Newly diagnosed HF, Neuropathy bilateral legs, Partial small bowel resection with ventral hernia incarceration,-Type 2 diabetes mellitus,-Gastro-Esophageal reflux disease,Hypertension. Chronic venous stasis with dermatosis and pedal edema chronic, enterobacter and enterococal wound infection 2018 History of Any Multi-Drug Resistant Organisms: None Reported Past Surgical History: Section, Cholecystectomy, Hernia Repair, Hysterectomy Past Anesthesia/Blood Transfusion Reactions: No Reported Reaction Past Psychological History: Depression Smoking Status: Former smoker Past Alcohol Use History: None Reported Past Drug Use History: None Reported - Past Family History Mother Family Medical History: Myocardial Infarction ([place]) Father Family Medical History: Cancer Medications and Allergies Home Medications Medication Instructions Recorded Confirmed Type ALPRAZolam [Xanax] 0.5 mg PO TID 01/29/18 01/24/20 History ARIPiprazole [Abilify] 5 mg PO DAILY 01/29/18 01/24/20 History DULoxetine HCL [Cymbalta] 60 mg PO BID 01/29/18 01/24/20 History Gabapentin [Neurontin] 400 mg PO TID 01/29/18 01/24/20 History Ondansetron [Zofran] 4 mg PO Q8HR PRN 01/29/18 01/24/20 History Pravastatin Sodium [Pravachol] 20 mg PO HS 01/29/18 01/24/20 History lisinopriL [Zestril] 10 mg PO DAILY 01/29/18 01/24/20 History Famotidine 40 mg PO DAILY 12/06/19 01/24/20 History HYDROcodone/APAP 7.5-325MG [Lorman 1 tab PO TID PRN 12/06/19 01/24/20 History 7.5-325] Humulin R 500u/Ml Vial (Pump) 2.3 unit SQ CONTINUOUS 12/06/19 01/24/20 History Isosorbide Dinitrate 10 mg PO BID 12/06/19 01/24/20 History Liraglutide [Victoza 2-Brenden] 1.8 mg SQ DAILY 12/06/19 01/24/20 History Nystatin 100,000 Unit/gm Powd 1 applic TOPICAL BID applic 12/09/19 01/24/20 Rx [Mycostatin Powder] Allergies Allergy/AdvReac Type Severity Reaction Status Date / Time cephalexin monohydrate AdvReac Nausea & Verified 12/06/19 18:32 [From Keflex] Vomiting Physical Exam Vitals: Vital Signs Temp Pulse Pulse Resp BP BP Pulse Ox 05/15/20 07:00 84 22 117/51 05/15/20 06:30 81 22 102/48 05/15/20 06:00 81 12 111/48 94 L 05/15/20 05:30 83 18 111/49 96 05/15/20 05:00 85 22 108/49 97 05/15/20 04:30 86 23 109/52 97 05/15/20 04:00 97.7 F 82 18 113/47 97 05/15/20 03:30 85 23 106/56 97 05/15/20 03:00 88 22 121/56 96 05/15/20 02:30 87 23 116/55 96 05/15/20 02:00 88 21 113/44 97 05/15/20 01:30 87 10 L 111/50 97 05/15/20 01:00 81 15 117/57 95 05/15/20 00:30 82 25 H 119/57 97 05/15/20 00:14 84 24 106/53 96 05/15/20 00:00 97.7 F 85 23 119/57 95 05/14/20 23:30 82 25 H 95/42 98 05/14/20 23:00 98.6 F 73 15 94/44 98 05/14/20 22:30 77 19 112/45 05/14/20 22:07 98.9 F 77 25 H 95/45 100 05/14/20 22:00 79 20 102/42 100 05/14/20 21:55 98.6 F 81 24 98/55 95 05/14/20 21:30 79 7 L 105/42 100 05/14/20 21:00 101.0 F H 78 22 100/44 96 05/14/20 20:00 98.5 F 82 16 101/41 95 Intake and Output 05/14/20 05/15/20 05/15/20 22:59 06:59 14:59 Intake Total 1000 1040 130 Output Total 0 130 40 Balance 1000 910 90 Intake: Intake, IV Titration 1000 1040 130 Amount Sodium Chloride 0.9% 1, 1000 1040 130 000 ml @ 130 mls/hr IV . [id number] STA Rx#:[id number] Output: Urine 0 130 40 Other: Voiding Method Indwelling Catheter Weight 145.15 kg 143 kg Morbid obesity with a BMI 57.7. Still altered and lethargic, withdraws to painful stimulation. Unable to hold a full conversation at this point in time. Head exam was generally normal. There was no scleral icterus or corneal arcus. Mucous membranes were moist. Neck was supple and without jugular venous distension, thyromegaly, or carotid bruits. Carotids were easily palpable bilaterally. There was no adenopathy. Lungs sounds are diminished bilaterally otherwise clear. There is no wheezes or rhonchi or any crackles Cardiac exam revealed the PMI to be normally situated and sized. The rhythm was regular and no extrasystoles were noted during several minutes of auscultation. The first and second heart sounds were normal and physiologic splitting of the second heart sound was noted. There were no murmurs, rubs, clicks, or gallops. Abdomen the patient is super obese. The patient's organs cannot be palpated adequately. There is no obvious organomegaly. Below her abdominal apron, there is some superficial skin wound development in addition to possible candidiasis in her intercrural and falls under abdomen. There is no evidence of any cellulitis at this point in time. No direct tenderness. No rebound tenderness. No guarding. Extremities reveal a cellulitis in the left lower extremity below the knee extending to the ankle along with some superficial skin ulceration. No purulent discharge. It is quite red and erythematous. There is edema in lower extremity is bilaterally. No cyanosis or clubbing. Neurologically the patient is altered, not following any commands and responding time. No focal neurological deficits that she withdraws to painful stimulation in all 4 extremities. She can follow also some still occasional simple commands. Results - Laboratory Findings CBC and BMP: 05/15/20 03:37 05/15/20 03:37 ABG ABG pH 7.40 (7.35-7.45) 05/14/20 20:43 ABG pCO2 34 mmHg (35-45) L 05/14/20 20:43 ABG pO2 104 mmHg (83-108) 05/14/20 20:43 ABG O2 Saturation 98.6 % (94-97) H 05/14/20 20:43 Abnormal lab findings: Abnormal Labs 10/04/20 10/04/20 10/04/20 20:43 21:02 21:02 WBC 17.9 H RBC 3.70 L Hgb 8.4 L Hct 27.8 L MCV 75.2 L MCH 22.8 L MCHC 30.4 L RDW 17.4 H Plt Count Neutrophils # 15.2 H ABG pCO2 34 L ABG O2 Saturation 98.6 H Sodium 134 L Potassium 5.5 H Chloride 108 H Carbon Dioxide 19 L BUN 42 H Creatinine 2.61 H POC Glucose (mg/dL) Plasma Lactic Acid Pato Calcium 8.3 L Troponin I Urine Appearance Urine Protein Urine Blood Ur Leukocyte Esterase Urine RBC Urine WBC Urine Bacteria Hyaline Casts Urine Mucus Urine Yeast (Budding) 05/14/20 05/14/20 05/14/20 21:02 21:02 22:48 WBC RBC Hgb Hct MCV MCH MCHC RDW Plt Count Neutrophils # ABG pCO2 ABG O2 Saturation Sodium Potassium Chloride Carbon Dioxide BUN Creatinine POC Glucose (mg/dL) 74 L Plasma Lactic Acid Pato 2.7 H* Calcium Troponin I 0.218 H* Urine Appearance Urine Protein Urine Blood Ur Leukocyte Esterase Urine RBC Urine WBC Urine Bacteria Hyaline Casts Urine Mucus Urine Yeast (Budding) 05/15/20 05/15/20 05/15/20 00:05 02:25 03:28 WBC RBC Hgb Hct MCV MCH MCHC RDW Plt Count Neutrophils # ABG pCO2 ABG O2 Saturation Sodium Potassium Chloride Carbon Dioxide BUN Creatinine POC Glucose (mg/dL) Plasma Lactic Acid Pato 2.3 H* 2.3 H* Calcium Troponin I Urine Appearance Cloudy H Urine Protein 2+ H Urine Blood Moderate H Ur Leukocyte Esterase Large H Urine RBC >182 H Urine WBC 64 H Urine Bacteria Occasional H Hyaline Casts 17 H Urine Mucus Rare H Urine Yeast (Budding) Moderate H 05/15/20 05/15/20 05/15/20 03:37 03:37 06:48 WBC 16.0 H RBC 3.44 L Hgb 8.1 L Hct 27.5 L MCV MCH 23.5 L MCHC 29.4 L RDW 17.0 H Plt Count 131 L Neutrophils # 13.8 H ABG pCO2 ABG O2 Saturation Sodium 133 L Potassium 5.8 H Chloride 109 H Carbon Dioxide 18 L BUN 45 H Creatinine 2.63 H POC Glucose (mg/dL) 121 H Plasma Lactic Acid Pato Calcium 7.9 L Troponin I Urine Appearance Urine Protein Urine Blood Ur Leukocyte Esterase Urine RBC Urine WBC Urine Bacteria Hyaline Casts Urine Mucus Urine Yeast (Budding) - Diagnostic Findings Chest x-ray: image reviewed Assessment and Plan Plan: 1 altered mental status likely secondary to metabolic encephalopathy/sepsis. The CAT scan of the brain was negative for any acute abnormalities. 2 acute febrile illness in addition to leukocytosis and lactic acidosis, related to underlying sepsis. The patient is still under investigation. The potential sources include urine as the patient had an abnormal urinalysis. Cultures still pending. The patient also has several left lower extremity on the left. The patient also has bilateral lower lobe pulmonary infiltrates/atelectasis and possibility of an aspiration pneumonia cannot be completely excluded. She has been given a total of 3 L of IV fluids. She is currently on broad-spectrum antibiotics 3 leukocytosis 4 lactic acidosis, improving 5 morbid obesity with a BMI 57.7 6 diabetes mellitus with complications related to peripheral neuropathy secondary to diabetes mellitus. 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 Abdo dotty wound is dry clean and intact 8 acute kidney injury and the patient had a mild component of non-anion gap metabolic acidosis and hyperkalemia with a potassium level of 5.8 9 chronic venous stasis dermatosis and pedal edema in lower extremity bilaterally with a possibility of a superimposed left lower extremity cellulitis 10 history of wound with wound infection secondary to enterococcus and Enterobacter back in 2018 11 poor performance and functional status at baseline 12 mild non-anion gap metabolic acidosis 13 hypertension 14 depression Plan Continue IV fluids and patient is currently on normal saline at the rate of 150 mL an hour Cover the patient with empiric antibiotics including a combination of Zosyn and vancomycin Ultrasound the kidneys Keep the Guzman catheter in place in amount and the patient's urine output and the potassium levels Lactic acid levels are improving Ultrasound the lower extremities rule out DVT Silvadene cream to the left lower extremity along with Jewel wraps Urine cultures and blood cultures are pending Obtain echocardiogram Heparin subcu for DVT prophylaxis Continue her Pepcid NovoLog factor coverage No need for pressors at this point in time Monitor the mental status
[2020-05-15] MEDS: HYDROcodone/APAP 7.5-325MG 1 EACH TAB PO PRN (14:25)
[2020-05-15 17:18] LABS: Glucose,Whole Blood 184 mg/dL (75-99)
[2020-05-15 20:53] LABS: Glucose,Whole Blood 228 mg/dL (75-99)
--- NOTE | 2020-05-15 21:59 | P.HPIM ---
History of Present Illness H&P Date: 05/15/20 Chief Complaint: Short of breath History of presenting complaint: This is a 55-year-old patient of Dr. Muñoz. Chronic stable medical conditions include diabetes, GERD, hypertension, osteoarthritis, depression. morbidly obese. Normally uses a wheelchair lives with her son. Patient was sent in from [facility]. It presented there with altered mental status. Initially found to be hypertensive. Low blood pressure. Given IV fluids. Also febrile with a temperature 101. Given IV vancomycin and meropenem. Patient also was in acute kidney injury lactic acidosis. Possible UTI. Check stat x-ray showed infiltrates. Possible cellulitis lower extremity. Telemetry this morning patient was rather lethargic somnolent. He received IV hydrocortisone in the ER. Review of systems: GEN.: Fever EYES: None HEENT: None NECK: None RESPIRATORY: Shortness of breath CARDIOVASCULAR: None GASTROINTESTINAL: None GENITOURINARY: None MUSCULOSKELETAL: joint pains LYMPHATICS: None HEMATOLOGICAL: None PSYCHIATRY: None NEUROLOGICAL: Numbness and tingling of the feet. Past medical history to include: Diabetes mellitus type 2, GERD, hypertension, osteoarthritis, depression, peripheral neuropathy from diabetes Social history: Lives with her son. Does use a wheelchair. An ex-smoker. No alcohol. Physical examination: VITAL SIGNS: 101, 82, 16, 96/42, 100% on 2 L upon presentation GENERAL: BMI 57.7, sitting up in bed, tired EYES: Pupils equal. Conjunctiva normal. HEENT: External appearance of nose and ears normal, oral cavity grossly dry NECK: JVD unable to assess; masses not palpable. HEART: Heart sounds are muffled; no edema. LUNGS: Respiratory rate increased; distant breath sounds. ABDOMEN: Soft, nontender, liver spleen not palpable, no masses palpable. PSYCH: Alert and oriented x3; mood and affect tired. NEUROLOGICAL: Cranial nerves grossly intact; no facial asymmetry, power grossly tired, decreased sensation distally DERMATOLOGICAL: Bilateral lower extremity dry skin with breakdown some evidence of cellulitis LYMPHATICS: No lymph nodes palpable in the axilla and neck INVESTIGATIONS, reviewed in the clinical context: White count 7.9 hemoglobin 8.4 platelets 155 potassium 5.5 bun 42 creatinine 2.61 lactic acid 2.7 troponin I 0.218 COVID 19 PCR not detected EKG tracing personally reviewed by me-normal sinus rhythm Chest x-ray film personally reviewed by me-infiltrates. The right lower lobe Abdominal ultrasound-no evidence of hydronephrosis, corticomedullary differentiation maintained Computed tomography scan of the brain-negative Ultrasound of the right and left leg-negative for DVT UA positive for leukoesterase, WBC, moderate yeast 2-D echocardiogram-EF 55-60% Previous testing: Bun 27 creatinine 1.2 to on January 24 Assessment: - pneumonia, suspect gram-negative organism, POA, causing sepsis -Acute metabolic encephalopathy on presentation from above, POA, improving -Acute UTI from cystitis causing sepsis, POA -Hyperkalemia secondary to kidney injury and patient being on CHEY inhibitor -Lactic acidosis -Morbid obesity BMI 57.7 -Diabetes mellitus type 2, chronically on insulin pump -GERD -Essential hypertension -Primary osteoarthritis -Depression not otherwise specified -Diabetic peripheral neuropathy -Normocytic anemia cause unknown -Acute kidney injury, likely ATN from sepsis, POA -Hyperkalemia from kidney failure -Lactic acidosis from sepsis -Chronic venous stasis with secondary dermatitis of bilateral lower extremity with possible cellulitis Plan: Patient put on IV fluids, vancomycin, IV Zosyn, home medications resumed. Metformin held. Zestril held. Follow Accu-Cheks. Patient admitted to ICU. Follow electrolytes closely. Past Medical History Past Medical History: Heart Failure, Diabetes Mellitus, GERD/Reflux, Hypertension, Osteoarthritis (OA) Additional Past Medical History / Comment(s): Depression, Super morbid obesity, Newly diagnosed HF, Neuropathy bilateral legs, Partial small bowel resection with ventral hernia incarceration,-Type 2 diabetes mellitus,-Gastro-Esophageal reflux disease,Hypertension. Chronic venous stasis with dermatosis and pedal edema chronic, enterobacter and enterococal wound infection 2018 History of Any Multi-Drug Resistant Organisms: None Reported Past Surgical History: Section, Cholecystectomy, Hernia Repair, Hysterectomy Past Anesthesia/Blood Transfusion Reactions: No Reported Reaction Past Psychological History: Depression Smoking Status: Former smoker Past Alcohol Use History: None Reported Past Drug Use History: None Reported - Past Family History Mother Family Medical History: Myocardial Infarction ([place]) Father Family Medical History: Cancer Medications and Allergies Home Medications Medication Instructions Recorded Confirmed Type ALPRAZolam [Xanax] 0.5 mg PO TID 01/29/18 05/15/20 History ARIPiprazole [Abilify] 5 mg PO DAILY 01/29/18 05/15/20 History DULoxetine HCL [Cymbalta] 60 mg PO BID 01/29/18 05/15/20 History Gabapentin [Neurontin] 400 mg PO TID 01/29/18 05/15/20 History Ondansetron [Zofran] 4 mg PO Q8HR 01/29/18 05/15/20 History Pravastatin Sodium [Pravachol] 20 mg PO HS 01/29/18 05/15/20 History lisinopriL [Zestril] 10 mg PO DAILY 01/29/18 05/15/20 History HYDROcodone/APAP 7.5-325MG [Thaxton 1 tab PO TID PRN 12/06/19 05/15/20 History 7.5-325] Albuterol Inhaler [Ventolin Hfa 2 puff INHALATION RT-Q4H PRN 05/15/20 05/15/20 History Inhaler] Pioglitazone [Actos] 15 mg PO DAILY 05/15/20 05/15/20 History metFORMIN HCL [Glucophage] 1,000 mg PO BID 05/15/20 05/15/20 History Allergies Allergy/AdvReac Type Severity Reaction Status Date / Time cephalexin monohydrate AdvReac Nausea & Verified 12/06/19 18:32 [From Keflex] Vomiting Physical Exam Vitals: Vital Signs Temp Pulse Pulse Resp BP BP Pulse Ox 05/15/20 09:00 79 20 123/56 95 05/15/20 08:30 80 21 108/46 95 05/15/20 08:00 98.1 F 78 22 117/54 96 05/15/20 07:30 82 19 119/55 96 05/15/20 07:00 84 22 117/51 05/15/20 06:30 81 22 102/48 05/15/20 06:00 81 12 111/48 94 L 05/15/20 05:30 83 18 111/49 96 05/15/20 05:00 85 22 108/49 97 05/15/20 04:30 86 23 109/52 97 05/15/20 04:00 97.7 F 82 18 113/47 97 05/15/20 03:30 85 23 106/56 97 05/15/20 03:00 88 22 121/56 96 05/15/20 02:30 87 23 116/55 96 05/15/20 02:00 88 21 113/44 97 05/15/20 01:30 87 10 L 111/50 97 05/15/20 01:00 81 15 117/57 95 05/15/20 00:30 82 25 H 119/57 97 05/15/20 00:14 84 24 106/53 96 05/15/20 00:00 97.7 F 85 23 119/57 95 05/14/20 23:30 82 25 H 95/42 98 05/14/20 23:00 98.6 F 73 15 94/44 98 05/14/20 22:30 77 19 112/45 05/14/20 22:07 98.9 F 77 25 H 95/45 100 05/14/20 22:00 79 20 102/42 100 05/14/20 21:55 98.6 F 81 24 98/55 95 05/14/20 21:30 79 7 L 105/42 100 05/14/20 21:00 101.0 F H 78 22 100/44 96 05/14/20 20:00 98.5 F 82 16 101/41 95 Intake and Output 05/14/20 05/15/20 05/15/20 22:59 06:59 14:59 Intake Total 1000 1040 860 Output Total 0 130 235 Balance 1000 910 625 Intake: IV 730 Piperacillin-Tazobactam 3 100 .375 gm In Sodium Chloride 0.9% 100 ml @ 25 mls/hr IVPB Q12HR [facility] Rx #:[id number] Sodium Chloride 0.9% 1, 130 000 ml @ 130 mls/hr IV . Q7H42M [facility] Rx#:[id number] Vancomycin 2,000 mg In 500 Sodium Chloride 0.9% 500 ml 500 ml @ 167 mls/hr IVPB ONCE ONE Rx#: [id number] Intake, IV Titration 1000 1040 130 Amount Sodium Chloride 0.9% 1, 1000 1040 130 000 ml @ 130 mls/hr IV . Q7H42M [facility] Rx#:[id number] Output: Urine 0 130 235 Other: Voiding Method Indwelling Catheter Indwelling Catheter Weight 145.15 kg 143 kg Results CBC & Chem 7: 05/15/20 03:37 05/15/20 03:37 Labs: Abnormal Lab Results - Last 24 Hours (Table) 1005/14/20 05/14/20 Range/Units 20:43 21:02 21:02 WBC 17.9 H (3.8-10.6) k/uL RBC 3.70 L (3.80-5.40) m/uL Hgb 8.4 L (11.4-16.0) gm/dL Hct 27.8 L (34.0-46.0) % MCV 75.2 L (80.0-100.0) fL MCH 22.8 L (25.0-35.0) pg MCHC 30.4 L (31.0-37.0) g/dL RDW 17.4 H (11.5-15.5) % Plt Count (150-450) k/uL Neutrophils # 15.2 H (1.3-7.7) k/uL ABG pCO2 34 L (35-45) mmHg ABG O2 Saturation 98.6 H (94-97) % Sodium 134 L (137-145) mmol/L Potassium 5.5 H (3.5-5.1) mmol/L Chloride 108 H (98-107) mmol/L Carbon Dioxide 19 L (22-30) mmol/L BUN 42 H (7-17) mg/dL Creatinine 2.61 H (0.52-1.04) mg/dL POC Glucose (mg/dL) (75-99) mg/dL Plasma Lactic Acid Pato (0.7-2.0) mmol/L Calcium 8.3 L (8.4-10.2) mg/dL Troponin I (0.000-0.034) ng/mL Urine Appearance (Clear) Urine Protein (Negative) Urine Blood (Negative) Ur Leukocyte Esterase (Negative) Urine RBC (0-5) /hpf Urine WBC (0-5) /hpf Urine Bacteria (None) /hpf Hyaline Casts (0-2) /lpf Urine Mucus (None) /hpf Urine Yeast (Budding) (None) /hpf 05/14/20 05/14/20 05/14/20 Range/Units 21:02 21:02 22:48 WBC (3.8-10.6) k/uL RBC (3.80-5.40) m/uL Hgb (11.4-16.0) gm/dL Hct (34.0-46.0) % MCV (80.0-100.0) fL MCH (25.0-35.0) pg MCHC (31.0-37.0) g/dL RDW (11.5-15.5) % Plt Count (150-450) k/uL Neutrophils # (1.3-7.7) k/uL ABG pCO2 (35-45) mmHg ABG O2 Saturation (94-97) % Sodium (137-145) mmol/L Potassium (3.5-5.1) mmol/L Chloride (98-107) mmol/L Carbon Dioxide (22-30) mmol/L BUN (7-17) mg/dL Creatinine (0.52-1.04) mg/dL POC Glucose (mg/dL) 74 L (75-99) mg/dL Plasma Lactic Acid Pato 2.7 H* (0.7-2.0) mmol/L Calcium (8.4-10.2) mg/dL Troponin I 0.218 H* (0.000-0.034) ng/mL Urine Appearance (Clear) Urine Protein (Negative) Urine Blood (Negative) Ur Leukocyte Esterase (Negative) Urine RBC (0-5) /hpf Urine WBC (0-5) /hpf Urine Bacteria (None) /hpf Hyaline Casts (0-2) /lpf Urine Mucus (None) /hpf Urine Yeast (Budding) (None) /hpf 05/15/20 05/15/20 05/15/20 Range/Units 00:05 02:25 03:28 WBC (3.8-10.6) k/uL RBC (3.80-5.40) m/uL Hgb (11.4-16.0) gm/dL Hct (34.0-46.0) % MCV (80.0-100.0) fL MCH (25.0-35.0) pg MCHC (31.0-37.0) g/dL RDW (11.5-15.5) % Plt Count (150-450) k/uL Neutrophils # (1.3-7.7) k/uL ABG pCO2 (35-45) mmHg ABG O2 Saturation (94-97) % Sodium (137-145) mmol/L Potassium (3.5-5.1) mmol/L Chloride (98-107) mmol/L Carbon Dioxide (22-30) mmol/L BUN (7-17) mg/dL Creatinine (0.52-1.04) mg/dL POC Glucose (mg/dL) (75-99) mg/dL Plasma Lactic Acid Pato 2.3 H* 2.3 H* (0.7-2.0) mmol/L Calcium (8.4-10.2) mg/dL Troponin I (0.000-0.034) ng/mL Urine Appearance Cloudy H (Clear) Urine Protein 2+ H (Negative) Urine Blood Moderate H (Negative) Ur Leukocyte Esterase Large H (Negative) Urine RBC >182 H (0-5) /hpf Urine WBC 64 H (0-5) /hpf Urine Bacteria Occasional H (None) /hpf Hyaline Casts 17 H (0-2) /lpf Urine Mucus Rare H (None) /hpf Urine Yeast (Budding) Moderate H (None) /hpf 05/15/20 05/15/20 05/15/20 Range/Units 03:37 03:37 06:48 WBC 16.0 H (3.8-10.6) k/uL RBC 3.44 L (3.80-5.40) m/uL Hgb 8.1 L (11.4-16.0) gm/dL Hct 27.5 L (34.0-46.0) % MCV (80.0-100.0) fL MCH 23.5 L (25.0-35.0) pg MCHC 29.4 L (31.0-37.0) g/dL RDW 17.0 H (11.5-15.5) % Plt Count 131 L (150-450) k/uL Neutrophils # 13.8 H (1.3-7.7) k/uL ABG pCO2 (35-45) mmHg ABG O2 Saturation (94-97) % Sodium 133 L (137-145) mmol/L Potassium 5.8 H (3.5-5.1) mmol/L Chloride 109 H (98-107) mmol/L Carbon Dioxide 18 L (22-30) mmol/L BUN 45 H (7-17) mg/dL Creatinine 2.63 H (0.52-1.04) mg/dL POC Glucose (mg/dL) 121 H (75-99) mg/dL Plasma Lactic Acid Pato (0.7-2.0) mmol/L Calcium 7.9 L (8.4-10.2) mg/dL Troponin I (0.000-0.034) ng/mL Urine Appearance (Clear) Urine Protein (Negative) Urine Blood (Negative) Ur Leukocyte Esterase (Negative) Urine RBC (0-5) /hpf Urine WBC (0-5) /hpf Urine Bacteria (None) /hpf Hyaline Casts (0-2) /lpf Urine Mucus (None) /hpf Urine Yeast (Budding) (None) /hpf Thrombosis Risk Factor Assmnt - Choose All That Apply Each Factor Represents 1 point: Age 41-60 years, Heart failure (<1month), Obesity (BMI >25), Sepsis (< 1month), Swollen legs (current) Thrombosis Risk Factor Assessment Total Risk Factor Score: 5 Thrombosis Risk Factor Assessment Level: High Risk
[2020-05-16] MEDS: HEPARIN SODIUM,PORCINE 5,000 UNIT/ML 1 ML VIAL SQ SCH ×3 (01:08→17:10)
[2020-05-16] MEDS: INSULIN ASPART (NovoLOG) 100 UNIT/ML VIAL SQ SCH ×6 (03:06→21:39)
[2020-05-16 04:26] LABS: Anisocytosis Slight; Basophils % (A) 0 %; Eosinophils # (A) 0.5 k/uL (0-0.7); Eosinophils % (A) 5 %; HCT 26.5 % (34.0-46.0); HGB 7.9 gm/dL (11.4-16.0); Hypochromasia Marked; Lymphocytes # (A) 1.2 k/uL (1.0-4.8); Lymphocytes % (A) 11 %; MCH 24.3 pg (25.0-35.0); MCHC 29.8 g/dL (31.0-37.0); MCV 81.7 fL (80.0-100.0); Mean Platelet Volume 7.8; Microcytosis Slight; Monocytes # (A) 0.4 k/uL (0-1.0); Monocytes % (A) 4 %; Neutrophils # (A) 8.4 k/uL (1.3-7.7); Neutrophils % (A) 79 %; Platelet Count 117 k/uL (150-450); RBC 3.24 m/uL (3.80-5.40); RDW 17.4 % (11.5-15.5); WBC 10.7 k/uL (3.8-10.6)
[2020-05-16 04:35] LABS: Calcium 7.6 mg/dL (8.4-10.2); Potassium 4.9 mmol/L (3.5-5.1)
[2020-05-16 06:23] LABS: Glucose,Whole Blood 225 mg/dL (75-99)
[2020-05-16] MEDS: SODIUM CHLORIDE 0.9% 1,000 ML IV SCH ×2 (06:28→12:57)
[2020-05-16] MEDS ORDERED: VANCOMYCIN 2,000 MG in SODIUM CHLORIDE 0.9% 500 ML 500 ML IVPB ONE (08:00)
[2020-05-16 09:04] LABS: Glucose,Whole Blood 208 mg/dL (75-99)
[2020-05-16] MEDS: FAMOTIDINE 20 MG TAB PO SCH (09:42)
[2020-05-16] MEDS: GABAPENTIN 400 MG CAP PO SCH ×2 (09:43→17:10)
[2020-05-16] MEDS: ARIPiprazole 5 MG TAB PO SCH (09:43)
[2020-05-16] MEDS: DULoxetine HCL 60 MG CAPSULE.DR PO SCH ×2 (09:43→20:08)
[2020-05-16] MEDS: PIPERACILLIN-TAZOBACTAM 3.375 GM in SODIUM CHLORIDE 0.9% 100 ML IVPB SCH ×2 (09:44→17:09)
--- NOTE | 2020-05-16 11:33 | P.PN ---
Subjective Progress Note Date: 05/16/20 This is a 55-year-old female patient was transferred to us from [facility]. The patient was initiated taken to [facility] because of an altered mental status. In the ED, the patient was found to be altered in addition to hypotensive. She was started on IV fluids. The patient is quite lethargic and she was febrile with a temperature of 101. At that point I decided to transfer this patient to [facility]. The patient was seen in the ED. The patient was started on IV fluids. The patient received a total of 3 L of IV fluid in the form of normal saline. She was also started on broad- spectrum antibiotics including a combination of Merrem and vancomycin. The blood work that was done in the emergency showed leukocytosis with a white cell count of 21.4. The patient's hemoglobin was at 9.1. The patient was an acute kidney injury with a creatinine of 2.3. Troponin was at 0.175. Lactic acid level was 3.3. The UA was abnormal and the patient's urinalysis indicated possibility of underlying urinary tract infection. The chest x-ray also showed bibasilar pulmonary infiltrates which could relate to either pneumonia or atelectasis. The patient was in a normal sinus rhythm. On examination, the patient had increased swelling lower extremities and the patient had a clear area of cellulitis over the lateral aspect of the left lower extremity below the knee extending to the ankle and the skin was showing some sloughing and some superficial maceration. The area was hot and tender and was very highly suggestive underlying cellulitis. At the time of my evaluation this morning, the patient was still lethargic and somnolent. She was not on any pressors. Antonio pratt was given hydrocortisone in the emergency department. The blood gases done yesterday showed a pH of 7.4 with a pCO2 of 34 and pO2 of 104 and this was on FiO2 of 35%. Lactic acid level subsequently improved and is currently down to 1.2. On 2019, the patient is feeling better. She is awake and alert and following commands and answering questions appropriately. She has no specific complaints for now. She was in a positive fluid balance of 2.5 L over the past 24 hours and the patient is receiving normal saline today to 130 mL an hour. Urine output is adequate. Ultrasound of the kidneys showed no significant abnormalities in the kidney injury is improving and the creatinine is down to 2.0. She is on 2 L of oxygen by nasal cannula with a pulse is 74%. Cardiac rhythm is sinus. The gloria virus Covid 19 testing was negative. The patient's white cell count is down to 10.7. Creatinine is down to 2.07. She remains on a combination of Zosyn and vancomycin. Left lower extremity segments also improving. She is tolerating her diet. No nausea. No vomiting. No altered mentation. No other new complaints otherwise for now. Objective - Vital Signs Vital signs: Vital Signs Temp 98.1 F 05/16/20 04:00 Pulse 88 05/16/20 07:00 Resp 23 05/16/20 07:00 BP 137/61 05/16/20 07:00 Pulse Ox 92 L 05/16/20 07:00 Intake & Output 05/15/20 05/16/20 05/16/20 18:59 06:59 18:59 Intake Total 2270 1660 130 Output Total 615 735 50 Balance 1655 925 80 Weight 143 kg 146 kg Intake: IV 1640 1660 130 Piperacillin-Tazobactam 3 100 100 .375 gm In Sodium Chloride 0.9% 100 ml @ 25 mls/hr IVPB Q12HR [facility] Rx #:[id number] Sodium Chloride 0.9% 1, 1040 1560 130 000 ml @ 130 mls/hr IV . Q7H42M [facility] Rx#:[id number] Vancomycin 2,000 mg In 500 Sodium Chloride 0.9% 500 ml 500 ml @ 167 mls/hr IVPB ONCE ONE Rx#: [id number] Intake, IV Titration 130 Amount Sodium Chloride 0.9% 1, 130 000 ml @ 130 mls/hr IV . Q7H42M [facility] Rx#:[id number] Oral 500 Output: Urine 615 735 50 Other: Voiding Method Indwelling Catheter Indwelling Catheter Indwelling Catheter # Bowel Movements 1 - Exam Morbid obesity with a BMI 57.7. the patient is alert and oriented 3. She is following commands and answering questions appropriately. She has no specific complaints for now. Head exam was generally normal. There was no scleral icterus or corneal arcus. Mucous membranes were moist. Neck was supple and without jugular venous distension, thyromegaly, or carotid bruits. Carotids were easily palpable bilaterally. There was no adenopathy. Lungs sounds are diminished bilaterally otherwise clear. There is no wheezes or rhonchi or any crackles Cardiac exam revealed the PMI to be normally situated and sized. The rhythm was regular and no extrasystoles were noted during several minutes of auscultation. The first and second heart sounds were normal and physiologic splitting of the second heart sound was noted. There were no murmurs, rubs, clicks, or gallops. Abdomen the patient is super obese. The patient's organs cannot be palpated adequately. There is no obvious organomegaly. Below her abdominal apron, there is some superficial skin wound development in addition to possible candidiasis in her intercrural and falls under abdomen. There is no evidence of any cellulitis at this point in time. No direct tenderness. No rebound tenderness. No guarding. Extremities reveal a cellulitis in the left lower extremity below the knee extending to the ankle along with some superficial skin ulceration. No purulent discharge. It is quite red and erythematous. There is edema in lower extremity is bilaterally. No cyanosis or clubbing. The left lower extremity is well dressed at this point with the appropriate Jewel wraps applied to the left lower extremity. Neurologically the patient is altered, not following any commands and responding time. No focal neurological deficits that she withdraws to painful stimulation in all 4 extremities. She can follow also some still occasional simple commands. - Labs CBC & Chem 7: 05/16/20 03:33 05/16/20 03:33 Labs: Abnormal Lab Results - Last 24 Hours (Table) 05/15/20 05/15/20 05/15/20 Range/Units 11:49 17:17 20:51 WBC (3.8-10.6) k/uL RBC (3.80-5.40) m/uL Hgb (11.4-16.0) gm/dL Hct (34.0-46.0) % MCH (25.0-35.0) pg MCHC (31.0-37.0) g/dL RDW (11.5-15.5) % Plt Count (150-450) k/uL Neutrophils # (1.3-7.7) k/uL Sodium (137-145) mmol/L Chloride (98-107) mmol/L Carbon Dioxide (22-30) mmol/L BUN (7-17) mg/dL Creatinine (0.52-1.04) mg/dL Glucose (74-99) mg/dL POC Glucose (mg/dL) 120 H 184 H 228 H (75-99) mg/dL Calcium (8.4-10.2) mg/dL 05/16/20 05/16/20 05/16/20 Range/Units 03:33 03:33 06:21 WBC 10.7 H (3.8-10.6) k/uL RBC 3.24 L (3.80-5.40) m/uL Hgb 7.9 L (11.4-16.0) gm/dL Hct 26.5 L (34.0-46.0) % MCH 24.3 L (25.0-35.0) pg MCHC 29.8 L (31.0-37.0) g/dL RDW 17.4 H (11.5-15.5) % Plt Count 117 L (150-450) k/uL Neutrophils # 8.4 H (1.3-7.7) k/uL Sodium 135 L (137-145) mmol/L Chloride 112 H (98-107) mmol/L Carbon Dioxide 17 L (22-30) mmol/L BUN 47 H (7-17) mg/dL Creatinine 2.05 H (0.52-1.04) mg/dL Glucose 216 H (74-99) mg/dL POC Glucose (mg/dL) 225 H (75-99) mg/dL Calcium 7.6 L (8.4-10.2) mg/dL 05/16/20 Range/Units 09:03 WBC (3.8-10.6) k/uL RBC (3.80-5.40) m/uL Hgb (11.4-16.0) gm/dL Hct (34.0-46.0) % MCH (25.0-35.0) pg MCHC (31.0-37.0) g/dL RDW (11.5-15.5) % Plt Count (150-450) k/uL Neutrophils # (1.3-7.7) k/uL Sodium (137-145) mmol/L Chloride (98-107) mmol/L Carbon Dioxide (22-30) mmol/L BUN (7-17) mg/dL Creatinine (0.52-1.04) mg/dL Glucose (74-99) mg/dL POC Glucose (mg/dL) 208 H (75-99) mg/dL Calcium (8.4-10.2) mg/dL Microbiology - Last 24 Hours (Table) 05/15/20 00:05 Blood Culture - Preliminary Blood No Growth after 24 hours 05/15/20 02:25 Urine Culture - Preliminary Urine,Voided Assessment and Plan Plan: 1 altered mental status likely secondary to metabolic encephalopathy/sepsis. The CAT scan of the brain was negative for any acute abnormalities. Clinically the patient is improved and she seems to be much more appropriate on today's evaluation with a nonfocal neurologic exam. She is alert and oriented 3. 2 acute febrile illness in addition to leukocytosis and lactic acidosis, related to underlying sepsis. The patient is still under investigation. The potential sources include urine as the patient had an abnormal urinalysis. Cultures still pending. The patient also has several left lower extremity on the left. The patient also has bilateral lower lobe pulmonary infiltrates/atelectasis and possibility of an aspiration pneumonia cannot be completely excluded. She has been given a total of 3 L of IV fluids. She is currently on broad-spectrum antibiotics The patient is well resuscitated IV fluids. The patient is currently hemodynamically stable on no pressors. Cultures are negative thus far. The pa tient's Antibiotic coverage including a combination of Zosyn and vancomycin. No active issues for now. 3 leukocytosis, improved 4 lactic acidosis, improving 5 morbid obesity with a BMI 57.7 6 diabetes mellitus with complications related to peripheral neuropathy secondary to diabetes mellitus. 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 Abdominal wound is dry clean and intact 8 acute kidney injury and the patient had a mild component of non-anion gap metabolic acidosis and hyperkalemia with a potassium level of 5.8 9 chronic venous stasis dermatosis and pedal edema in lower extremity bilaterally with a possibility of a superimposed left lower extremity cellulitis 10 history of wound with wound infection secondary to enterococcus and Enterobacter back in 2018 11 poor performance and functional status at baseline 12 mild non-anion gap metabolic acidosis 13 hypertension 14 depression Plan Continue IV fluids and reduced infusion down to 75 mL an hour Monitor the cultures empiric antibiotics including a combination of Zosyn and vancomycin Ultrasound the kidneys shows no evidence of any hydronephrosis Lactic acid levels are improving Ultrasound the lower extremitie showed no evidence of any DVT Silvadene cream to the left lower extremity along with Jewel wraps Obtain echocardiogram Showed a normal ejection fraction of 55-60% Heparin subcu for DVT prophylaxis Continue her Pepcid NovoLog factor coverage No need for pressors at this point in time Monitor the mental statusAnd overall mental status improved considerably. The patient can be changed out of the intensive care unit today.
[2020-05-16 12:11] LABS: Glucose,Whole Blood 201 mg/dL (75-99)
--- NOTE | 2020-05-16 15:16 | P.PN ---
Progress Note - Text Progress Note Date: 05/16/20 Chief Complaint: Short of breath History of presenting complaint: This is a 55-year-old patient of Dr. Muñoz. Chronic stable medical conditions include diabetes-on insulin pump, GERD, hypertension, osteoarthritis, depression. morbidly obese. Normally uses a wheelchair lives with her son. Patient was sent in from [facility]. It presented there with altered mental status. Initially found to be hypotensive. Low blood pressure. Given IV fluids. Also febrile with a temperature 101. Given IV vancomycin and meropenem. Patient also was in acute kidney injury lactic acidosis. Possible UTI. Check stat x-ray showed infiltrates. Possible cellulitis lower extremity. this morning patient was rather lethargic somnolent. received IV hydrocortisone in the ER. Admitted with-pneumonia, UTI with cystitis, sepsis, metabolic encephalopathy, lactic acidosis. Placed on vancomycin, Zosyn. Today-feeling better. Oral intake better. Does not have her insulin pump supplies. Tired, Review of systems: Was done for constitutional, cardiovascular, GI, pulmonary. relevant finding as above Active Medications Hydrocodone Bitart/Acetaminophen (Hydrocodone/Apap 7.5-325mg 1 Each Tab) 1 each PO TID PRN PRN Reason: Pain Last Admin: 05/15/20 14:25 Dose: 1 each Documented by: Aripiprazole (Aripiprazole 5 Mg Tab) 5 mg PO DAILY [facility] Last Admin: 05/16/20 09:43 Dose: 5 mg Documented by: Duloxetine HCl (Duloxetine Hcl 60 Mg Capsule.) 60 mg PO BID [facility] Last Admin: 05/16/20 09:43 Dose: 60 mg Documented by: Famotidine (Famotidine 20 Mg Tab) 20 mg PO DAILY [facility] Gabapentin (Gabapentin 400 Mg Cap) 400 mg PO TID [facility] Last Admin: 05/16/20 09:43 Dose: 400 mg Documented by: Heparin Sodium (Porcine) (Heparin Sodium,Porcine 5,000 Unit/Ml 1 Ml Vial) 5,000 unit SQ Q8HR [facility] Last Admin: 05/16/20 09:43 Dose: 5,000 unit Documented by: Sodium Chloride (Saline 0.9%) 1,000 mls @ 75 mls/hr IV .[id number] [facility] Last Admin: 05/16/20 12:57 Dose: 75 mls/hr Documented by: Piperacillin Sod/Tazobactam (Sod 3.375 gm/ Sodium Chloride) 100 mls @ 25 mls/hr IVPB Q8HR [facility] Insulin Aspart (Insulin Aspart (Novolog) 100 Unit/Ml Vial) 0 unit SQ [id number] [facility]; Protocol Last Admin: 05/16/20 12:56 Dose: 2 unit Documented by: Miscellaneous Information (Vancomycin Iv Per Pharmacy 1 Each [facility]) 1 each MISCELLANE DIRECTED PRN; Protocol PRN Reason: Per Protocol Silver Sulfadiazine (Silver Sulfadiazine 1% Cream 25 Gm Tube) 1 applic TOPICAL DAILY [facility] Last Admin: 05/16/20 09:45 Dose: 1 applic Documented by: Physical examination: VITAL SIGNS: 98.1, 80, 16, 135/73, 94% on 2 L GENERAL: Sitting up in a chair, looking better. EYES: Pupils equal. Conjunctiva normal. HEENT: External appearance of nose and ears normal, oral cavity grossly dry NECK: JVD unable to assess; masses not palpable. HEART: Heart sounds are muffled; no edema. LUNGS: Respiratory rate increased; distant breath sounds. ABDOMEN: Soft, nontender, liver spleen not palpable, no masses palpable. PSYCH: Alert and oriented x3; mood and affect tired. NEUROLOGICAL: Cranial nerves grossly intact; no facial asymmetry, power grossly tired, decreased sensation distally DERMATOLOGICAL: Bilateral lower extremity dry skin with breakdown some evidence of cellulitis INVESTIGATIONS, reviewed in the clinical context: White count 10.7 hemoglobin 7.9 platelets 117 potassium 4.9 bun 47 creatinine 2.05 Previous testing White count 7.9 hemoglobin 8.4 platelets 155 potassium 5.5 bun 42 creatinine 2.61 lactic acid 2.7 troponin I 0.218 COVID 19 PCR not detected EKG tracing personally reviewed by me-normal sinus rhythm Chest x-ray film personally reviewed by me-infiltrates. The right lower lobe Abdominal ultrasound-no evidence of hydronephrosis, corticomedullary differentiation maintained Computed tomography scan of the brain-negative Ultrasound of the right and left leg-negative for DVT UA positive for leukoesterase, WBC, moderate yeast 2-D echocardiogram-EF 55-60% Previous testing: Bun 27 creatinine 1.2 to on January 24 Assessment: - pneumonia, suspect gram-negative organism, POA, causing sepsis -Acute metabolic encephalopathy on presentation from above, POA, improving -Acute UTI from cystitis causing sepsis, POA -Hyperkalemia secondary to kidney injury and patient being on CHEY inhibitor -Lactic acidosis -Morbid obesity BMI 57.7 -Diabetes mellitus type 2, chronically on insulin pump -GERD -Essential hypertension -Primary osteoarthritis -Depression not otherwise specified -Diabetic peripheral neuropathy -Normocytic anemia cause unknown -Acute kidney injury, likely ATN from sepsis, POA-slow to respond -Hyperkalemia from kidney failure -Lactic acidosis from sepsis -Chronic venous stasis with secondary dermatitis of bilateral lower extremity with possible cellulitis Plan: Continue IV fluids, vancomycin, IV Zosyn, seen by diabetic coordinator Himanshu. Does not have a supplies and insulin pump. We'll see for any family member can bring in a supplies.
[2020-05-16 16:32] LABS: Glucose,Whole Blood 241 mg/dL (75-99)
[2020-05-16] MEDS: HYDROcodone/APAP 7.5-325MG 1 EACH TAB PO PRN (20:08)
[2020-05-16 21:03] LABS: Glucose,Whole Blood 250 mg/dL (75-99)
[2020-05-16] MEDS: INSULIN DETEMIR (LEVEMIR) 100 UNIT/ML SYR SQ SCH (21:39)
[2020-05-17] MEDS: HEPARIN SODIUM,PORCINE 5,000 UNIT/ML 1 ML VIAL SQ SCH ×3 (00:58→16:50)
[2020-05-17] MEDS: GABAPENTIN 400 MG CAP PO SCH ×4 (00:58→20:51)
[2020-05-17] MEDS: PIPERACILLIN-TAZOBACTAM 3.375 GM in SODIUM CHLORIDE 0.9% 100 ML IVPB SCH ×3 (00:59→16:50)
[2020-05-17 02:01] LABS: Glucose,Whole Blood 211 mg/dL (75-99)
[2020-05-17] MEDS: INSULIN ASPART (NovoLOG) 100 UNIT/ML VIAL SQ SCH ×8 (02:42→20:51)
[2020-05-17] MEDS: SODIUM CHLORIDE 0.9% 1,000 ML IV SCH ×2 (02:42→12:09)
[2020-05-17 03:48] LABS: Anisocytosis Slight; Basophils % (A) 0 %; Eosinophils # (A) 0.6 k/uL (0-0.7); Eosinophils % (A) 7 %; HCT 26.7 % (34.0-46.0); HGB 7.9 gm/dL (11.4-16.0); Hypochromasia Marked; Lymphocytes # (A) 1.7 k/uL (1.0-4.8); Lymphocytes % (A) 22 %; MCH 23.3 pg (25.0-35.0); MCHC 29.4 g/dL (31.0-37.0); MCV 79.4 fL (80.0-100.0); Mean Platelet Volume 8.8; Microcytosis Slight; Monocytes # (A) 0.3 k/uL (0-1.0); Monocytes % (A) 4 %; Neutrophils % (A) 64 %; Platelet Count 135 k/uL (150-450); RBC 3.37 m/uL (3.80-5.40); WBC 7.8 k/uL (3.8-10.6)
[2020-05-17 05:53] LABS: Calcium 8.2 mg/dL (8.4-10.2); Potassium 4.9 mmol/L (3.5-5.1)
[2020-05-17 06:34] LABS: Glucose,Whole Blood 188 mg/dL (75-99)
[2020-05-17] MEDS: FAMOTIDINE 20 MG TAB PO SCH (09:44)
[2020-05-17] MEDS: DULoxetine HCL 60 MG CAPSULE.DR PO SCH ×2 (09:44→20:51)
[2020-05-17] MEDS: ARIPiprazole 5 MG TAB PO SCH (09:45)
--- NOTE | 2020-05-17 11:26 | P.CONS ---
History of Present Illness - Reason for Consult Consult date: 05/17/20 Wound care - History of Present Illness This is a 55-year-old patient being seen by the wound care center in ICU for nonhealing ulceration to the left anterior lateral leg. Patient states that the ulceration has been there for quite sometime. It drains constantly home leaving puddles wherever she goes. Patient has cellulitis at this time. They have been applying Silvadene to the site. Patient's past medical history significant for heart failure, morbid obesity, neuropathy bilateral lower legs, reflux, hypertension. Patient is a former smoker. Denies diabetes. Review of Systems Review Of Systems: Constitutional: No fever, no chills, no night sweats. No weight change. No wea kness, fatigue or lethargy. No daytime sleepiness. Integumentary:reports wounds, no lesions. No rash or pruritus. No unusual bruising. No change in hair or nails. Past Medical History Past Medical History: Heart Failure, Diabetes Mellitus, GERD/Reflux, Hypertension, Osteoarthritis (OA) Additional Past Medical History / Comment(s): Depression, Super morbid obesity, Newly diagnosed HF, Neuropathy bilateral legs, Partial small bowel resection with ventral hernia incarceration,-Type 2 diabetes mellitus,-Gastro-Esophageal reflux disease,Hypertension. Chronic venous stasis with dermatosis and pedal edema chronic, enterobacter and enterococal wound infection 2018 History of Any Multi-Drug Resistant Organisms: None Reported Past Surgical History: Section, Cholecystectomy, Hernia Repair, Hysterectomy Past Anesthesia/Blood Transfusion Reactions: No Reported Reaction Past Psychological History: Depression Smoking Status: Former smoker Past Alcohol Use History: None Reported Past Drug Use History: None Reported - Past Family History Mother Family Medical History: Myocardial Infarction (NM) Father Family Medical History: Cancer Medications and Allergies Home Medications Medication Instructions Recorded Confirmed Type ALPRAZolam [Xanax] 0.5 mg PO TID 01/29/18 05/15/20 History ARIPiprazole [Abilify] 5 mg PO DAILY 01/29/18 05/15/20 History DULoxetine HCL [Cymbalta] 60 mg PO BID 01/29/18 05/15/20 History Gabapentin [Neurontin] 400 mg PO TID 01/29/18 05/15/20 History Ondansetron [Zofran] 4 mg PO Q8HR 01/29/18 05/15/20 History Pravastatin Sodium [Pravachol] 20 mg PO HS 01/29/18 05/15/20 History lisinopriL [Zestril] 10 mg PO DAILY 01/29/18 05/15/20 History HYDROcodone/APAP 7.5-325MG [[place] 1 tab PO TID PRN 12/06/19 05/15/20 History 7.5-325] Albuterol Inhaler [Ventolin Hfa 2 puff INHALATION RT-Q4H PRN 05/15/20 05/15/20 History Inhaler] Pioglitazone [Actos] 15 mg PO DAILY 05/15/20 05/15/20 History metFORMIN HCL [Glucophage] 1,000 mg PO BID 05/15/20 05/15/20 History Allergies Allergy/AdvReac Type Severity Reaction Status Date / Time cephalexin monohydrate AdvReac Nausea & Verified 12/06/19 18:32 [From Keflex] Vomiting Physical Exam Vitals: Vital Signs Temp Pulse Resp BP Pulse Ox 05/17/20 08:00 98.6 F 83 18 128/65 94 L 05/17/20 00:00 98.0 F 70 16 118/95 93 L 05/16/20 17:00 82 20 124/65 93 L 05/16/20 16:00 97.8 F 88 22 128/60 93 L 05/16/20 15:00 81 21 130/60 95 05/16/20 14:00 82 24 125/59 95 05/16/20 13:00 80 14 134/63 93 L 05/16/20 12:00 98.7 F 84 20 138/60 95 Intake and Output 05/16/20 05/17/20 05/17/20 22:59 06:59 14:59 Intake Total 225 Output Total 600 900 Balance -375 -900 Intake: IV 225 Sodium Chloride 0.9% 1, 225 000 ml @ 75 mls/hr IV . [id number] [facility] Rx#:[id number] Output: Urine 600 900 Other: Voiding Method Indwelling Catheter Indwelling Catheter Indwelling Catheter Weight 143.9 kg Physical exam: General Appearance: Alert, cooperative, no distress, appears stated age. Skin: Left lower extremity anterior lateral aspect. No ulceration Limited to skin breakdown measuring approximately 1 x 2.3 x 0.1 cm granulation seen throughout the wound bed with minimal slough. Moderate serous drainage. Wound edges attached to the wound base. Periwound shows scarring erythema edema. all other Skin color, texture, tugor normal, no rashes or lesions. Neurologic: Alert oriented x3 Results CBC & Chem 7: 05/17/20 03:18 05/17/20 03:11 Labs: Abnormal Lab Results - Last 24 Hours (Table) 05/16/20 05/16/20 05/16/20 Range/Units 12:10 16:31 21:01 RBC (3.80-5.40) m/uL Hgb (11.4-16.0) gm/dL Hct (34.0-46.0) % MCV (80.0-100.0) fL MCH (25.0-35.0) pg MCHC (31.0-37.0) g/dL RDW (11.5-15.5) % Plt Count (150-450) k/uL Sodium (137-145) mmol/L Chloride (98-107) mmol/L Carbon Dioxide (22-30) mmol/L BUN (7-17) mg/dL Creatinine (0.52-1.04) mg/dL Glucose (74-99) mg/dL POC Glucose (mg/dL) 201 H 241 H 250 H (75-99) mg/dL Calcium (8.4-10.2) mg/dL 05/17/20 05/17/20 05/17/20 Range/Units 02:01 03:11 03:18 RBC 3.37 L (3.80-5.40) m/uL Hgb 7.9 L (11.4-16.0) gm/dL Hct 26.7 L (34.0-46.0) % MCV 79.4 L (80.0-100.0) fL MCH 23.3 L (25.0-35.0) pg MCHC 29.4 L (31.0-37.0) g/dL RDW 17.0 H (11.5-15.5) % Plt Count 135 L (150-450) k/uL Sodium 136 L (137-145) mmol/L Chloride 112 H (98-107) mmol/L Carbon Dioxide 20 L (22-30) mmol/L BUN 39 H (7-17) mg/dL Creatinine 1.70 H (0.52-1.04) mg/dL Glucose 196 H (74-99) mg/dL POC Glucose (mg/dL) 211 H (75-99) mg/dL Calcium 8.2 L (8.4-10.2) mg/dL 05/17/20 Range/Units 06:33 RBC (3.80-5.40) m/uL Hgb (11.4-16.0) gm/dL Hct (34.0-46.0) % MCV (80.0-100.0) fL MCH (25.0-35.0) pg MCHC (31.0-37.0) g/dL RDW (11.5-15.5) % Plt Count (150-450) k/uL Sodium (137-145) mmol/L Chloride (98-107) mmol/L Carbon Dioxide (22-30) mmol/L BUN (7-17) mg/dL Creatinine (0.52-1.04) mg/dL Glucose (74-99) mg/dL POC Glucose (mg/dL) 188 H (75-99) mg/dL Calcium (8.4-10.2) mg/dL Microbiology - Last 24 Hours (Table) 05/15/20 00:05 Blood Culture - Preliminary Blood No Growth after 48 hours 05/15/20 02:25 Urine Culture - Final Urine,Voided Assessment and Plan (1) Nonhealing ulcer of left lower extremity limited to breakdown of skin Current Visit: Yes Status: Acute Code(s): L97.921 - NON-PRS CHR ULC UNSP PRT OF L LOW LEG LIMITED TO BRKDWN SKIN SNOMED Code(s): 89389387 (2) Chronic venous hypertension (idiopathic) with ulcer and inflammation of left lower extremity Current Visit: Yes Status: Acute Code(s): I87.332 - CHRONIC VENOUS HTN W ULCER AND INFLAMMATION OF L LOW EXTREM; L97.929 - NON-PRS CHRONIC ULC UNSP PRT OF L LOW LEG W UNSP SEVERITY SNOMED Code(s): 691444417722277 Plan: Apply moistened absorptive silver to the ulceration, Triad to the area wound, wrap with rolled gauze secured with paper tape utilize an elastic wrap such as Jewel wrap to the site. Change Friday. Elevate legs at least 30 minutes a day 3 times a day to help relieve edema. Thank you, for the consultation any questions please contact the wound care center DNP note has been reviewed and discussed with Dr. Freeman and the impression and plan of care has been directed as dictated.
[2020-05-17 11:27] LABS: Glucose,Whole Blood 246 mg/dL (75-99)
--- NOTE | 2020-05-17 12:00 | P.PN ---
Subjective Progress Note Date: 05/17/20 This is a 55-year-old female patient was transferred to us from [facility]. The patient was initiated taken to [facility] because of an altered mental status. In the ED, the patient was found to be altered in addition to hypotensive. She was started on IV fluids. The patient is quite lethargic and she was febrile with a temperature of 101. At that point I decided to transfer this patient to [facility]. The patient was seen in the ED. The patient was started on IV fluids. The patient received a total of 3 L of IV fluid in the form of normal saline. She was also started on broad- spectrum antibiotics including a combination of Merrem and vancomycin. The blood work that was done in the emergency showed leukocytosis with a white cell count of 21.4. The patient's hemoglobin was at 9.1. The patient was an acute kidney injury with a creatinine of 2.3. Troponin was at 0.175. Lactic acid level was 3.3. The UA was abnormal and the patient's urinalysis indicated possibility of underlying urinary tract infection. The chest x-ray also showed bibasilar pulmonary infiltrates which could relate to either pneumonia or atelectasis. The patient was in a normal sinus rhythm. On examination, the patient had increased swelling lower extremities and the patient had a clear area of cellulitis over the lateral aspect of the left lower extremity below the knee extending to the ankle and the skin was showing some sloughing and some superficial maceration. The area was hot and tender and was very highly suggestive underlying cellulitis. At the time of my evaluation this morning, the patient was still lethargic and somnolent. She was not on any pressors. Antonoi pratt was given hydrocortisone in the emergency department. The blood gases done yesterday showed a pH of 7.4 with a pCO2 of 34 and pO2 of 104 and this was on FiO2 of 35%. Lactic acid level subsequently improved and is currently down to 1.2. On 2019, the patient is feeling better. She is awake and alert and following commands and answering questions appropriately. She has no specific complaints for now. She was in a positive fluid balance of 2.5 L over the past 24 hours and the patient is receiving normal saline today to 130 mL an hour. Urine output is adequate. Ultrasound of the kidneys showed no significant abnormalities in the kidney injury is improving and the creatinine is down to 2.0. She is on 2 L of oxygen by nasal cannula with a pulse is 74%. Cardiac rhythm is sinus. The gloria virus Covid 19 testing was negative. The patient's white cell count is down to 10.7. Creatinine is down to 2.07. She remains on a combination of Zosyn and vancomycin. Left lower extremity segments also improving. She is tolerating her diet. No nausea. No vomiting. No altered mentation. No other new complaints otherwise for now. 05/17/2020, patient is being seen for a follow-up. The patient is doing well. She is awake and alert and she is feeling well and she has no specific c omplaints. Cellulitis of the left lower extremity has improved considerably. The patient is still on a combination of Zosyn and vancomycin. Blood cultures from [facility] was reported to be positive for gram-positive cocci in clusters. Final culture are still pending for now. Meanwhile, the patient has no fever. The patient is on normal saline today to have 75 mL an hour. The pat ient is producing adequate amount of urine output. The patient is currently on 2 L of oxygen by nasal cannula. Urine cultures of been negative. Blood cultures been negative. No altered mentation. No other significant events over the past 24 hours and the patient's condition is stable for now. She is on Levemir insulin 18 units at bedtime in addition to sliding scale coverage pH is also taking 3 units of NovoLog with meals. Antibiotic coverage was a combination of Zosyn and vancomycin. Objective - Vital Signs Vital signs: Vital Signs Temp 98.6 F 05/17/20 08:00 Pulse 83 05/17/20 08:00 Resp 18 05/17/20 08:00 BP 128/65 05/17/20 08:00 Pulse Ox 94 L 05/17/20 08:00 Intake & Output 05/16/20 05/17/20 05/17/20 18:59 06:59 18:59 Intake Total 1206.0 Output Total 900 1200 Balance 306.0 -1200 Weight 143.9 kg Intake: IV 1206.0 Piperacillin-Tazobactam 3 50.0 .375 gm In Sodium Chloride 0.9% 100 ml @ 25 mls/hr IVPB Q12HR [facility] Rx #:[id number] Sodium Chloride 0.9% 1, 655 000 ml @ 75 mls/hr IV . [id number] [facility] Rx#:[id number] Vancomycin 2,000 mg In 501 Sodium Chloride 0.9% 500 ml 500 ml @ 167 mls/hr IVPB ONCE ONE Rx#: [id number] Output: Urine 900 1200 Other: Voiding Method Indwelling Catheter Indwelling Catheter Indwelling Catheter - Exam Morbid obesity with a BMI 57.7. the patient is alert and oriented 3. She is following commands and answering questions appropriately. She has no specific complaints for now. Head exam was generally normal. There was no scleral icterus or corneal arcus. Mucous membranes were moist. Neck was supple and without jugular venous distension, thyromegaly, or carotid bruits. Carotids were easily palpable bilaterally. There was no adenopathy. Lungs sounds are diminished bilaterally otherwise clear. There is no wheezes or rhonchi or any crackles Cardiac exam revealed the PMI to be normally situated and sized. The rhythm was regular and no extrasystoles were noted during several minutes of auscultation. The first and second heart sounds were normal and physiologic splitting of the second heart sound was noted. There were no murmurs, rubs, clicks, or gallops. Abdomen the patient is super obese. The patient's organs cannot be palpated adequately. There is no obvious organomegaly. Below her abdominal apron, there is some superficial skin wound development in addition to possible candidiasis in her intercrural and falls under abdomen. There is no evidence of any cell ulitis at this point in time. No direct tenderness. No rebound tenderness. No guarding. Extremities reveal a cellulitis in the left lower extremity below the knee extending to the ankle along with some superficial skin ulceration. No purulent discharge. It is quite red and erythematous. There is edema in lower extremity is bilaterally. No cyanosis or clubbing. The left lower extremity is well dressed at this point with the appropriate Jewel wraps applied to the left lower extremity. Examination of the left lower extremity shows significant improvement in cellulitis and resolution of the warmth and the redness that was described earlier. Neurologically the patient is altered, not following any commands and responding time. No focal neurological deficits that she withdraws to painful stimulation in all 4 extremities. She can follow also some still occasional simple commands. - Labs CBC & Chem 7: 05/17/20 03:18 05/17/20 03:11 Labs: Abnormal Lab Results - Last 24 Hours (Table) 05/16/20 05/16/20 05/16/20 Range/Units 12:10 16:31 21:01 RBC (3.80-5.40) m/uL Hgb (11.4-16.0) gm/dL Hct (34.0-46.0) % MCV (80.0-100.0) fL MCH (25.0-35.0) pg MCHC (31.0-37.0) g/dL RDW (11.5-15.5) % Plt Count (150-450) k/uL Sodium (137-145) mmol/L Chloride (98-107) mmol/L Carbon Dioxide (22-30) mmol/L BUN (7-17) mg/dL Creatinine (0.52-1.04) mg/dL Glucose (74-99) mg/dL POC Glucose (mg/dL) 201 H 241 H 250 H (75-99) mg/dL Calcium (8.4-10.2) mg/dL 05/17/20 05/17/20 05/17/20 Range/Units 02:01 03:11 03:18 RBC 3.37 L (3.80-5.40) m/uL Hgb 7.9 L (11.4-16.0) gm/dL Hct 26.7 L (34.0-46.0) % MCV 79.4 L (80.0-100.0) fL MCH 23.3 L (25.0-35.0) pg MCHC 29.4 L (31.0-37.0) g/dL RDW 17.0 H (11.5-15.5) % Plt Count 135 L (150-450) k/uL Sodium 136 L (137-145) mmol/L Chloride 112 H (98-107) mmol/L Carbon Dioxide 20 L (22-30) mmol/L BUN 39 H (7-17) mg/dL Creatinine 1.70 H (0.52-1.04) mg/dL Glucose 196 H (74-99) mg/dL POC Glucose (mg/dL) 211 H (75-99) mg/dL Calcium 8.2 L (8.4-10.2) mg/dL 05/17/20 05/17/20 Range/Units 06:33 11:26 RBC (3.80-5.40) m/uL Hgb (11.4-16.0) gm/dL Hct (34.0-46.0) % MCV (80.0-100.0) fL MCH (25.0-35.0) pg MCHC (31.0-37.0) g/dL RDW (11.5-15.5) % Plt Count (150-450) k/uL Sodium (137-145) mmol/L Chloride (98-107) mmol/L Carbon Dioxide (22-30) mmol/L BUN (7-17) mg/dL Creatinine (0.52-1.04) mg/dL Glucose (74-99) mg/dL POC Glucose (mg/dL) 188 H 246 H (75-99) mg/dL Calcium (8.4-10.2) mg/dL Microbiology - Last 24 Hours (Table) 05/15/20 00:05 Blood Culture - Preliminary Blood No Growth after 48 hours 05/15/20 02:25 Urine Culture - Final Urine,Voided Assessment and Plan Plan: 1 altered mental status likely secondary to metabolic encephalopathy/sepsis. The CAT scan of the brain was negative for any acute abnormalities. Clinically the patient is improved and she seems to be much more appropriate on today's evaluation with a nonfocal neurologic exam. She is alert and oriented 3. Neurologic functions have essentially recovered and the patient is back to her baseline alert state. 2 acute febrile illness in addition to leukocytosis and lactic acidosis, related to underlying sepsis. The patient is still under investigation. The potential sources include urine as the patient had an abnormal urinalysis. The urine culture been negative. The blood cultures been negative. The patient was treated for left lower extremity cellulitis. There is an indication for a gram-positive cocci in clusters based on blood cultures were obtained and [facility]. The patient is currently on no pressors. The patient's Antibiotic coverage including a combination of Zosyn and vancomycin. No active issues for now. 3 leukocytosis, improved 4 lactic acidosis, improving 5 morbid obesity with a BMI 57.7 6 diabetes mellitus with complications related to peripheral neuropathy secondary to diabetes mellitus. 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 Abdominal wound is dry clean and intact 8 acute kidney injury and the patient had a mild component of non-anion gap metabolic acidosis , improved and the patient's serum bicarbs up to 20 and a potassium level is down to 4.9 and acute kidney injury continues to improve with a creatinine of 1.7. 9 chronic venous stasis dermatosis and pedal edema in lower extremity bilaterally with a possibility of a superimposed left lower extremity cellulitis, improving 10 history of wound with wound infection secondary to enterococcus and Ente robacter back in 2018 11 poor performance and functional status at baseline 12 mild non-anion gap metabolic acidosis 13 hypertension 14 depression Plan Continue IV fluids and reduced infusion down to 75 mL an hour Monitor the cultures, which are essentially negative for now empiric antibiotics including a combination of Zosyn and vancomycin Cellulitis of the left lower extremity is improving Silvadene cream to the left lower extremity along with Jewel wraps Obtain echocardiogram Showed a normal ejection fraction of 55-60% Heparin subcu for DVT prophylaxis Continue her Pepcid NovoLog factor coverage No need for pressors at this point in time We'll consult wound services We are asked the patient to be transferred out of the intensive care unit today to a medical surgical floor with telemetry. blood cultures was obtained and [facility]. It was reported to us that the blood culture was positive for gram-positive cocci.
[2020-05-17] MEDS: HYDROPHILIC CREAM 180 GM TUBE TOPICAL SCH (12:08)
[2020-05-17] MEDS ORDERED: VANCOMYCIN 2,500 MG in SODIUM CHLORIDE 0.9% 500 ML 500 ML IVPB SCH (14:00)
[2020-05-17 14:48] LABS: Hemoglobin A1C 8.6 % (4.0-6.0)
--- NOTE | 2020-05-17 15:54 | P.PN ---
Progress Note - Text Progress Note Date: 05/17/20 Chief Complaint: Short of breath History of presenting complaint: This is a 55-year-old patient of Dr. Muñoz. Chronic stable medical conditions include diabetes-on insulin pump, GERD, hypertension, osteoarthritis, depression. morbidly obese. Normally uses a wheelchair lives with her son. Patient was sent in from [facility]. It presented there with altered mental status. Initially found to be hypotensive. Low blood pressure. Given IV fluids. Also febrile with a temperature 101. Given IV vancomycin and meropenem. Patient also was in acute kidney injury lactic acidosis. Possible UTI. Check stat x-ray showed infiltrates. Possible cellulitis lower extremity. this morning patient was rather lethargic somnolent. received IV hydrocortisone in the ER. Admitted with-pneumonia, UTI with cystitis, sepsis, metabolic encephalopathy, lactic acidosis, cellulitis of left lower extremity. Placed on vancomycin, Zosyn. Blood cultures from [facility] reported to be gram-positive cocci Today-up in a chair. Eating all her meals. Family unable to bring her insulin supplies. On nasal cannula Review of systems: Was done for constitutional, cardiovascular, GI, pulmonary. relevant finding as above Active Medications Hydrocodone Bitart/Acetaminophen (Hydrocodone/Apap 7.5-325mg 1 Each Tab) 1 each PO TID PRN PRN Reason: Pain Last Admin: 05/16/20 20:08 Dose: 1 each Documented by: Aripiprazole (Aripiprazole 5 Mg Tab) 5 mg PO DAILY [facility] Last Admin: 05/17/20 09:45 Dose: 5 mg Documented by: Duloxetine HCl (Duloxetine Hcl 60 Mg Kyung.) 60 mg PO BID [facility] Last Admin: 05/17/20 09:44 Dose: 60 mg Documented by: Famotidine (Famotidine 20 Mg Tab) 20 mg PO DAILY [facility] Last Admin: 05/17/20 09:44 Dose: 20 mg Documented by: Gabapentin (Gabapentin 400 Mg Cap) 400 mg PO TID [facility] Last Admin: 05/17/20 09:44 Dose: 400 mg Documented by: Heparin Sodium (Porcine) (Heparin Sodium,Porcine 5,000 Unit/Ml 1 Ml Vial) 5,000 unit SQ Q8HR [facility] Last Admin: 05/17/20 09:44 Dose: 5,000 unit Documented by: Sodium Chloride (Saline 0.9%) 1,000 mls @ 75 mls/hr IV .[id number] [facility] Last Admin: 05/17/20 12:09 Dose: 75 mls/hr Documented by: Piperacillin Sod/Tazobactam (Sod 3.375 gm/ Sodium Chloride) 100 mls @ 25 mls/hr IVPB Q8HR [facility] Last Admin: 05/17/20 09:45 Dose: 25 mls/hr Documented by: Vancomycin HCl 2,500 mg/ (Sodium Chloride) 500 mls @ 167 mls/hr IVPB Q36H [facility] Insulin Aspart (Insulin Aspart (Novolog) 100 Unit/Ml Vial) 0 unit SQ [id number] KASANDRA; Protocol Last Admin: 05/17/20 12:09 Dose: 4 unit Documented by: Insulin Aspart (Insulin Aspart (Novolog) 100 Unit/Ml Vial) 3 unit SQ AC-TID [facility] Last Admin: 05/17/20 12:10 Dose: 3 unit Documented by: Insulin Detemir (Insulin Detemir (Levemir) 100 Unit/Ml Syr) 18 unit SQ HS [facility] Last Admin: 05/16/20 21:39 Dose: 18 unit Documented by: Miscellaneous Information (Vancomycin Iv Per Pharmacy 1 Each Misc) 1 each MISCELLANE DIRECTED PRN; Protocol PRN Reason: Per Protocol Multi-Ingred Cream/Lotion/Oil/Oint (Hydrophilic Cream 180 Gm Tube) 1 applic TOPICAL DAILY [facility] Last Admin: 05/17/20 12:08 Dose: 1 applic Documented by: Physical examination: VITAL SIGNS: 98.6, 83, 18, 1 28 x 65, 94% on 2 L GENERAL: Sitting up in a chair, awake EYES: Pupils equal. Conjunctiva normal. HEENT: External appearance of nose and ears normal, oral cavity grossly dry NECK: JVD unable to assess; masses not palpable. HEART: Heart sounds are muffled; no edema. LUNGS: Respiratory rate increased; distant breath sounds. ABDOMEN: Soft, nontender, liver spleen not palpable, no masses palpable. PSYCH: Alert and oriented x3; mood and affect tired. NEUROLOGICAL: Cranial nerves grossly intact; no facial asymmetry, power grossly tired, decreased sensation distally DERMATOLOGICAL: Bilateral lower extremity dry skin with breakdown-evidence of cellulitis INVESTIGATIONS, reviewed in the clinical context: White count 7.8 hemoglobin 7.9 platelets 135 potassium 4.9 bun 39 creatinine 1.7 Previous testing White count 7.9 hemoglobin 8.4 platelets 155 potassium 5.5 bun 42 creatinine 2.61 lactic acid 2.7 troponin I 0.218 COVID 19 PCR not detected EKG tracing personally reviewed by me-normal sinus rhythm Chest x-ray film personally reviewed by me-infiltrates. The right lower lobe Abdominal ultrasound-no evidence of hydronephrosis, corticomedullary differentiation maintained Computed tomography scan of the brain-negative Ultrasound of the right and left leg-negative for DVT UA positive for leukoesterase, WBC, moderate yeast 2-D echocardiogram-EF 55-60% Previous testing: Bun 27 creatinine 1.2 to on January 24 Assessment: - pneumonia, suspect gram-negative organism, POA, causing sepsis -Blood cultures positive for gram-positive cocci from [facility] -Acute metabolic encephalopathy on presentation from above, POA, improving -Acute UTI from cystitis causing sepsis, POA -Hyperkalemia secondary to kidney injury and patient being on CHEY inhibitor -Lactic acidosis -Morbid obesity BMI 57.7 -Diabetes mellitus type 2, chronically on insulin pump -GERD -Essential hypertension -Primary osteoarthritis -Depression not otherwise specified -Diabetic peripheral neuropathy -Normocytic anemia cause unknown -Acute kidney injury, likely ATN from sepsis, POA-slow to respond -Hyperkalemia from kidney failure -Lactic acidosis from sepsis -Chronic venous stasis with secondary dermatitis of bilateral lower extremity with possible cellulitis -Chronic gait dysfunction uses a walker at the baseline Plan: Continue IV fluids, vancomycin, IV Zosyn, kidney functions improving. Patient did walk a from the bed to the chair. Patient is wanting to go back home and [place]. Hopefully next 24-48 hours.
[2020-05-17 16:41] LABS: Glucose,Whole Blood 263 mg/dL (75-99)
[2020-05-17 20:26] LABS: Glucose,Whole Blood 313 mg/dL (75-99)
[2020-05-17] MEDS: INSULIN DETEMIR (LEVEMIR) 100 UNIT/ML SYR SQ SCH (20:51)
[2020-05-17] MEDS: HYDROcodone/APAP 7.5-325MG 1 EACH TAB PO PRN (21:00)
[2020-05-18] MEDS: PIPERACILLIN-TAZOBACTAM 3.375 GM in SODIUM CHLORIDE 0.9% 100 ML IVPB SCH ×2 (00:55→09:16)
[2020-05-18] MEDS: HEPARIN SODIUM,PORCINE 5,000 UNIT/ML 1 ML VIAL SQ SCH ×4 (00:55→23:24)
[2020-05-18] MEDS: INSULIN ASPART (NovoLOG) 100 UNIT/ML VIAL SQ SCH ×8 (02:50→20:17)
[2020-05-18 04:25] LABS: Calcium 8.1 mg/dL (8.4-10.2); Potassium 4.7 mmol/L (3.5-5.1)
[2020-05-18 06:52] LABS: Glucose,Whole Blood 142 mg/dL (75-99)
[2020-05-18] MEDS: FLUCONAZOLE 100 MG TAB PO SCH (09:32)
[2020-05-18] MEDS: FAMOTIDINE 20 MG TAB PO SCH (09:32)
[2020-05-18] MEDS: GABAPENTIN 400 MG CAP PO SCH ×3 (09:32→20:12)
[2020-05-18] MEDS: DULoxetine HCL 60 MG CAPSULE.DR PO SCH ×2 (09:32→20:12)
[2020-05-18] MEDS: SODIUM CHLORIDE 0.9% 1,000 ML IV SCH ×2 (09:32→19:18)
[2020-05-18] MEDS: AMOXIC-POT CLAV 875-125MG 1 EACH TAB PO SCH ×2 (09:32→20:12)
[2020-05-18] MEDS: ARIPiprazole 5 MG TAB PO SCH (09:32)
[2020-05-18 11:36] LABS: Glucose,Whole Blood 173 mg/dL (75-99)
[2020-05-18] MEDS: HYDROPHILIC CREAM 180 GM TUBE TOPICAL SCH (12:30)
[2020-05-18 12:42] VITALS: BMI 58.1
--- NOTE | 2020-05-18 12:56 | P.PN ---
Subjective Progress Note Date: 05/18/20 This is a 55-year-old female patient was transferred to us from [facility]. The patient was initiated taken to [facility] because of an altered mental status. In the ED, the patient was found to be altered in addition to hypotensive. She was started on IV fluids. The patient is quite lethargic and she was febrile with a temperature of 101. At that point I decided to transfer this patient to [facility]. The patient was seen in the ED. The patient was started on IV fluids. The patient received a total of 3 L of IV fluid in the form of normal saline. She was also started on broad- spectrum antibiotics including a combination of Merrem and vancomycin. The blood work that was done in the emergency showed leukocytosis with a white cell count of 21.4. The patient's hemoglobin was at 9.1. The patient was an acute kidney injury with a creatinine of 2.3. Troponin was at 0.175. Lactic acid level was 3.3. The UA was abnormal and the patient's urinalysis indicated possibility of underlying urinary tract infection. The chest x-ray also showed bibasilar pulmonary infiltrates which could relate to either pneumonia or atelectasis. The patient was in a normal sinus rhythm. On examination, the patient had increased swelling lower extremities and the patient had a clear area of cellulitis over the lateral aspect of the left lower extremity below the knee extending to the ankle and the skin was showing some sloughing and some superficial maceration. The area was hot and tender and was very highly suggestive underlying cellulitis. At the time of my evaluation this morning, the patient was still lethargic and somnolent. She was not on any pressors. Antonio prtat was given hydrocortisone in the emergency department. The blood gases done yesterday showed a pH of 7.4 with a pCO2 of 34 and pO2 of 104 and this was on FiO2 of 35%. Lactic acid level subsequently improved and is currently down to 1.2. On 2019, the patient is feeling better. She is awake and alert and following commands and answering questions appropriately. She has no specific complaints for now. She was in a positive fluid balance of 2.5 L over the past 24 hours and the patient is receiving normal saline today to 130 mL an hour. Urine output is adequate. Ultrasound of the kidneys showed no significant abnormalities in the kidney injury is improving and the creatinine is down to 2.0. She is on 2 L of oxygen by nasal cannula with a pulse is 74%. Cardiac rhythm is sinus. The gloria virus Covid 19 testing was negative. The patient's white cell count is down to 10.7. Creatinine is down to 2.07. She remains on a combination of Zosyn and vancomycin. Left lower extremity segments also improving. She is tolerating her diet. No nausea. No vomiting. No altered mentation. No other new complaints otherwise for now. 05/17/2020, patient is being seen for a follow-up. The patient is doing well. She is awake and alert and she is feeling well and she has no specific c omplaints. Cellulitis of the left lower extremity has improved considerably. The patient is still on a combination of Zosyn and vancomycin. Blood cultures from [facility] was reported to be positive for gram-positive cocci in clusters. Final culture are still pending for now. Meanwhile, the patient has no fever. The patient is on normal saline today to have 75 mL an hour. The pat ient is producing adequate amount of urine output. The patient is currently on 2 L of oxygen by nasal cannula. Urine cultures of been negative. Blood cultures been negative. No altered mentation. No other significant events over the past 24 hours and the patient's condition is stable for now. She is on Levemir insulin 18 units at bedtime in addition to sliding scale coverage pH is also taking 3 units of NovoLog with meals. Antibiotic coverage was a combination of Zosyn and vancomycin. 05/18/2020, the patient is being seen for a follow-up. She is doing extremely well. She is hemodynamically stable. No respiratory difficulties. No cough sputum production chest tightness or wheezing. She is on 2 L of oxygen by nasal cannula. Sheis in a sinus rhythm with a heart rate of 83. The cellulitis of the left lower extremity is improved. The patient had a urine culture is positive for yeast. Based on that, the antibodies will be switched sputum went to discontinue the Zosyn and put the patient on Augmentin. I'm also going to stop the vancomycin. I'm going to utilize Diflucan regarding the fungal UTI. The patient has a Guzman catheter which will be also removed. Renal function continues to improve in the creatinine is down to 1.3. The patient was receiving IV fluids with a normal saline today to 75 mL's an hour. She is producing adequate amount of urine output. No signs of any bleeding. No other complaints otherwise for now. Objective - Vital Signs Vital signs: Vital Signs Temp 98.5 F 05/18/20 08:00 Pulse 79 05/18/20 08:00 Resp 16 05/18/20 08:00 BP 151/77 05/18/20 08:00 Pulse Ox 91 L 05/18/20 08:00 Intake & Output 05/17/20 05/18/20 05/18/20 18:59 06:59 18:59 Intake Total 1000 1730 Output Total 800 875 Balance 200 855 Weight 144.2 kg Intake: IV 1000 1250 Sodium Chloride 0.9% 1, 1000 1250 000 ml @ 75 mls/hr IV . [id number] [facility] Rx#:[id number] Oral 480 Output: Urine 800 875 Other: Voiding Method Indwelling Catheter Indwelling Catheter - Exam Morbid obesity with a BMI 57.7. the patient is alert and oriented 3. She is following commands and answering questions appropriately. She has no specific complaints for now. Head exam was generally normal. There was no scleral icterus or corneal arcus. Mucous membranes were moist. Neck was supple and without jugular venous distension, thyromegaly, or carotid bruits. Carotids were easily palpable bilaterally. There was no adenopathy. Lungs sounds are diminished bilaterally otherwise clear. There is no wheezes or rhonchi or any crackles Cardiac exam revealed the PMI to be normally situated and sized. The rhythm was regular and no extrasystoles were noted during several minutes of auscultation. The first and second heart sounds were normal and physiologic splitting of the second heart sound was noted. There were no murmurs, rubs, clicks, or gallops. Abdomen the patient is super obese. The patient's organs cannot be palpated adequately. There is no obvious organomegaly. Below her abdominal apron, there is some superficial skin wound development in addition to possible candidiasis in her intercrural and falls under abdomen. There is no evidence of any cellulitis at this point in time. No direct tenderness. No rebound tenderness. No guarding. Extremities reveal a cellulitis in the left lower extremity below the knee extending to the ankle along with some superficial skin ulceration. No purulent discharge. It is quite red and erythematous. There is edema in lower extremity is bilaterally. No cyanosis or clubbing. The left lower extremity is well dressed at this point with the appropriate Jewel wraps applied to the left lower extremity. Examination of the left lower extremity shows significant improvement in cellulitis and resolution of the warmth and the redness that was described earlier. Neurologically the patient is altered, not following any commands and responding time. No focal neurological deficits that she withdraws to painful stimulation in all 4 extremities. She can follow also some still occasional simple commands. - Labs CBC & Chem 7: 05/17/20 03:18 05/18/20 03:29 Labs: Abnormal Lab Results - Last 24 Hours (Table) 05/17/20 05/17/20 05/17/20 Range/Units 03:11 16:40 20:24 Chloride (98-107) mmol/L Carbon Dioxide (22-30) mmol/L BUN (7-17) mg/dL Creatinine (0.52-1.04) mg/dL Glucose (74-99) mg/dL POC Glucose (mg/dL) 263 H 313 H (75-99) mg/dL Hemoglobin A1c 8.6 H (4.0-6.0) % Calcium (8.4-10.2) mg/dL 05/18/20 05/18/20 05/18/20 Range/Units 03:29 06:51 11:35 Chloride 114 H (98-107) mmol/L Carbon Dioxide 20 L (22-30) mmol/L BUN 32 H (7-17) mg/dL Creatinine 1.21 H (0.52-1.04) mg/dL Glucose 150 H (74-99) mg/dL POC Glucose (mg/dL) 142 H 173 H (75-99) mg/dL Hemoglobin A1c (4.0-6.0) % Calcium 8.1 L (8.4-10.2) mg/dL Microbiology - Last 24 Hours (Table) 05/15/20 02:25 Urine Culture - Final Urine,Voided Shonda glabrata 05/15/20 00:05 Blood Culture - Preliminary Blood No Growth after 72 hours Assessment and Plan Plan: 1 altered mental status likely secondary to metabolic encephalopathy/sepsis recovered and the patient's mental status is back to normal. 2 acute febrile illness in addition to leukocytosis and lactic acidosis, related to underlying sepsis. The patient had a UTI with yeast and the patient also had a left of the left lower extremity and both of these conditions have been treated separately. Mental status is improved. No fever. Cultures were all noted. 3 leukocytosis, improved 4 lactic acidosis, improving 5 morbid obesity with a BMI 57.7 6 diabetes mellitus with complications related to peripheral neuropathy secondary to diabetes mellitus. 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 Abdominal wound is dry clean and intact 8 acute kidney injury and the patient had a mild component of non-anion gap metabolic acidosis , improved and the patient's serum bicarbs up to 20 and a potassium level is down to 4.9 and acute kidney injury continues to improve with a creatinine of 1.7. 9 chronic venous stasis dermatosis and pedal edema in lower extremity bilaterally with a possibility of a superimposed left lower extremity cellulitis, improving 10 history of wound with wound infection secondary to enterococcus and Enterobacter back in 2018 11 poor performance and functional status at baseline 12 mild non-anion gap metabolic acidosis 13 hypertension 14 depression Plan IV fluids to KVO. Stop the vancomycin and Zosyn Switch this patient Augmentin 875 mg by mouth twice a day. She does patient with Diflucan 100 mg for next 7 days Remove the Guzman catheter Cellulitis of the left lower extremity is improving Silvadene cream to the left lower extremity along with Jewel wraps Obtain echocardiogram Showed a normal ejection fraction of 55-60% Heparin subcu for DVT prophylaxis Continue her Pepcid NovoLog factor coverage Transfer this patient out of the intensive care unit. Renal function continues to improve the creatinine is down to 1.2. Possible discharge within next 24-48 hours depending on her progress.
--- NOTE | 2020-05-18 15:18 | P.PN ---
Progress Note - Text Progress Note Date: 05/18/20 Chief Complaint: Short of breath History of presenting complaint: This is a 55-year-old patient of Dr. Muñoz. Chronic stable medical conditions include diabetes-on insulin pump, GERD, hypertension, osteoarthritis, depression. morbidly obese. Normally uses a wheelchair lives with her son. Patient was sent in from [facility]. It presented there with altered mental status. Initially found to be hypotensive. Low blood pressure. Given IV fluids. Also febrile with a temperature 101. Given IV vancomycin and meropenem. Patient also was in acute kidney injury lactic acidosis. Possible UTI. chest x-ray showed infiltrates. Possible cellulitis lower extremity. this morning patient was rather lethargic somnolent. received IV hydrocortisone in the ER. Admitted with-pneumonia, UTI with cystitis, sepsis, metabolic encephalopathy, lactic acidosis, cellulitis of left lower extremity. Placed on vancomycin, Zosyn. Blood cultures from [facility] reported to be gram-positive cocci Today-continues to feel much better. Sitting up in a chair. Eating well. Has a Guzman catheter. On nasal cannula. Review of systems: Was done for constitutional, cardiovascular, GI, pulmonary. relevant finding as above Active Medications Hydrocodone Bitart/Acetaminophen (Hydrocodone/Apap 7.5-325mg 1 Each Tab) 1 each PO TID PRN PRN Reason: Pain Last Admin: 05/17/20 21:00 Dose: 1 each Documented by: Amoxicillin/Clavulanate Potassium (Amoxic-Pot Clav 875-125mg 1 Each Tab) 1 each PO Q12HR [facility] Last Admin: 05/18/20 09:32 Dose: 1 each Documented by: Aripiprazole (Aripiprazole 5 Mg Tab) 5 mg PO DAILY [facility] Last Admin: 05/18/20 09:32 Dose: 5 mg Documented by: Duloxetine HCl (Duloxetine Hcl 60 Mg Capsule.) 60 mg PO BID [facility] Last Admin: 05/18/20 09:32 Dose: 60 mg Documented by: Famotidine (Famotidine 20 Mg Tab) 20 mg PO DAILY [facility] Last Admin: 05/18/20 09:32 Dose: 20 mg Documented by: Fluconazole (Fluconazole 100 Mg Tab) 100 mg PO DAILY [facility] Last Admin: 05/18/20 09:32 Dose: 100 mg Documented by: Gabapentin (Gabapentin 400 Mg Cap) 400 mg PO TID [facility] Last Admin: 05/18/20 09:32 Dose: 400 mg Documented by: Heparin Sodium (Porcine) (Heparin Sodium,Porcine 5,000 Unit/Ml 1 Ml Vial) 5,000 unit SQ Q8HR [facility] Last Admin: 05/18/20 09:31 Dose: 5,000 unit Documented by: Sodium Chloride (Saline 0.9%) 1,000 mls @ 10 mls/hr IV .Q24H [facility] Last Admin: 05/18/20 09:32 Dose: 10 mls/hr Documented by: Insulin Aspart (Insulin Aspart (Novolog) 100 Unit/Ml Vial) 0 unit SQ [id number] [facility]; Protocol Last Admin: 05/18/20 12:29 Dose: 2 unit Documented by: Insulin Aspart (Insulin Aspart (Novolog) 100 Unit/Ml Vial) 3 unit SQ AC-TID [facility] Last Admin: 05/18/20 12:29 Dose: 3 unit Documented by: Insulin Detemir (Insulin Detemir (Levemir) 100 Unit/Ml Syr) 18 unit SQ HS [facility] Last Admin: 05/17/20 20:51 Dose: 18 unit Documented by: Multi-Ingred Cream/Lotion/Oil/Oint (Hydrophilic Cream 180 Gm Tube) 1 applic TOPICAL DAILY [facility] Last Admin: 05/18/20 12:30 Dose: 1 applic Documented by: Physical examination: VITAL SIGNS: 98.5, 79, 16, 1 51 x 77, 91% on 2 L GENERAL: Sitting up in a chair, comfortable with nasal cannula EYES: Pupils equal. Conjunctiva normal. HEENT: External appearance of nose and ears normal, oral cavity grossly dry NECK: JVD unable to assess; masses not palpable. HEART: Heart sounds are muffled; no edema. LUNGS: Respiratory rate increased; distant breath sounds. ABDOMEN: Soft, nontender, liver spleen not palpable, no masses palpable. PSYCH: Alert and oriented x3; mood and affect tired. NEUROLOGICAL: Cranial nerves grossly intact; no facial asymmetry, power grossly tired, decreased sensation distally DERMATOLOGICAL: Bilateral lower extremity dry skin with breakdown-evidence of cellulitis INVESTIGATIONS, reviewed in the clinical context: Potassium 4.7 bun 32 creatinine 1.21 C. diff negative Previous testing White count 7.9 hemoglobin 8.4 platelets 155 potassium 5.5 bun 42 creatinine 2.61 lactic acid 2.7 troponin I 0.218 COVID 19 PCR not detected EKG tracing personally reviewed by me-normal sinus rhythm Chest x-ray film personally reviewed by me-infiltrates. The right lower lobe Abdominal ultrasound-no evidence of hydronephrosis, corticomedullary differentiation maintained Computed tomography scan of the brain-negative Ultrasound of the right and left leg-negative for DVT UA positive for leukoesterase, WBC, moderate yeast 2-D echocardiogram-EF 55-60% Previous testing: Bun 27 creatinine 1.2 to on January 24 Assessment: - pneumonia, suspect gram-negative organism, POA, causing sepsis-clinically improved -Blood cultures positive for gram-positive cocci from [facility] -Acute metabolic encephalopathy on presentation from above, POA, improving -Acute UTI from cystitis causing sepsis, POA -Hyperkalemia secondary to kidney injury and patient being on CHEY inhibitor -Lactic acidosis -Morbid obesity BMI 57.7 -Diabetes mellitus type 2, chronically on insulin pump-patient does not have a insulin pump supplies at the hospital. -GERD -Essential hypertension -Primary osteoarthritis -Depression not otherwise specified -Diabetic peripheral neuropathy -Normocytic anemia cause unknown -Acute kidney injury, likely ATN from sepsis, improving -Hyperkalemia from kidney failure -Lactic acidosis from sepsis -Chronic venous stasis with secondary dermatitis of bilateral lower extremity with possible cellulitis -Chronic gait dysfunction uses a walker at the baseline Plan: vancomycin, IV Zosyn,-discontinued by Dr. Nathan. kidney functions improving. We'll have the patient use incentive spirometry. Hopefully can get her off the oxygen. Repeat labs tomorrow. patient to get home tomorrow. Nurse reminded to DC the Guzman catheter..
[2020-05-18 16:38] LABS: Glucose,Whole Blood 284 mg/dL (75-99)
[2020-05-18] MEDS: HYDROcodone/APAP 7.5-325MG 1 EACH TAB PO PRN (17:36)
[2020-05-18 20:12] LABS: Glucose,Whole Blood 314 mg/dL (75-99)
[2020-05-18] MEDS: INSULIN DETEMIR (LEVEMIR) 100 UNIT/ML SYR SQ SCH (20:13)
[2020-05-18 23:24] VITALS: RESP 18
[2020-05-19 02:37] LABS: Glucose,Whole Blood 174 mg/dL (75-99)
[2020-05-19] MEDS: INSULIN ASPART (NovoLOG) 100 UNIT/ML VIAL SQ SCH ×5 (02:39→12:08)
[2020-05-19 06:57] LABS: Glucose,Whole Blood 139 mg/dL (75-99)
[2020-05-19 07:03] LABS: Calcium 8.4 mg/dL (8.4-10.2); Potassium 4.6 mmol/L (3.5-5.1)
[2020-05-19] MEDS: HEPARIN SODIUM,PORCINE 5,000 UNIT/ML 1 ML VIAL SQ SCH (07:18)
[2020-05-19 07:31] VITALS: BP 165/76; PULSE 76; TEMP 97.5
[2020-05-19] MEDS: AMOXIC-POT CLAV 875-125MG 1 EACH TAB PO SCH (09:15)
[2020-05-19] MEDS: DULoxetine HCL 60 MG CAPSULE.DR PO SCH (09:16)
[2020-05-19] MEDS: FAMOTIDINE 20 MG TAB PO SCH (09:16)
[2020-05-19] MEDS: ARIPiprazole 5 MG TAB PO SCH (09:16)
[2020-05-19] MEDS: GABAPENTIN 400 MG CAP PO SCH (09:16)
[2020-05-19] MEDS: FLUCONAZOLE 100 MG TAB PO SCH (09:16)
[2020-05-19 11:24] LABS: Glucose,Whole Blood 203 mg/dL (75-99)
[2020-05-19] MEDS: HYDROPHILIC CREAM 180 GM TUBE TOPICAL SCH (12:09)
--- NOTE | 2020-05-19 12:25 | P.PN ---
Subjective Progress Note Date: 05/19/20 Principal diagnosis: Altered mental status suspect secondary to metabolic encephalopathy/sepsis This is a 55-year-old female patient was transferred to us from [facility]. The patient was initiated taken to [facility] because of an altered mental status. In the ED, the patient was found to be altered in addition to hypotensive. She was started on IV fluids. The patient is quite lethargic and she was febrile with a temperature of 101. At that point I decided to transfer this patient to [facility]. The patient was seen in the ED. The patient was started on IV fluids. The patient received a total of 3 L of IV fluid in the form of normal saline. She was also started on broad- spectrum antibiotics including a combination of Merrem and vancomycin. The blood work that was done in the emergency showed leukocytosis with a white cell count of 21.4. The patient's hemoglobin was at 9.1. The patient was an acute kidney injury with a creatinine of 2.3. Troponin was at 0.175. Lactic acid level was 3.3. The UA was abnormal and the patient's urinalysis indicated possibility of underlying urinary tract infection. The chest x-ray also showed bibasilar pulmonary infiltrates which could relate to either pneumonia or atelectasis. The patient was in a normal sinus rhythm. On examination, the patient had increased swelling lower extremities and the patient had a clear area of cellulitis over the lateral aspect of the left lower extremity below the knee extending to the ankle and the skin was showing some sloughing and some superficial maceration. The area was hot and tender and was very highly suggestive underlying cellulitis. At the time of my evaluation this morning, the patient was still lethargic and somnolent. She was not on any pressors. She was given hydrocortisone in the emergency department. The blood gases done yesterday showed a pH of 7.4 with a pCO2 of 34 and pO2 of 104 and this was on FiO2 of 35%. Lactic acid level subsequently improved and is currently down to 1.2. On 2019, the patient is feeling better. She is awake and alert and following commands and answering questions appropriately. She has no specific complaints for now. She was in a positive fluid balance of 2.5 L over the past 24 hours and the patient is receiving normal saline today to 130 mL an hour. Urine output is adequate. Ultrasound of the kidneys showed no significant abnormalities in the kidney injury is improving and the creatinine is down to 2.0. She is on 2 L of oxygen by nasal cannula with a pulse is 74%. Cardiac rhythm is sinus. The gloria virus Covid 19 testing was negative. The patient's white cell count is down to 10.7. Creatinine is down to 2.07. She remains on a combination of Zosyn and vancomycin. Left lower extremity segments also improving. She is tolerating her diet. No nausea. No vomiting. No altered mentation. No other new complaints otherwise for now. 05/17/2020, patient is being seen for a follow-up. The patient is doing well. She is awake and alert and she is feeling well and she has no specific complaints. Cellulitis of the left lower extremity has improved considerably. The patient is still on a combination of Zosyn and vancomycin. Blood cultures from [facility] was reported to be positive for gram-positive cocci in clusters. Final culture are still pending for now. Meanwhile, the patient has no fever. The patient is on normal saline today to have 75 mL an hour. The patient is producing adequate amount of urine output. The patient is currently on 2 L of oxygen by nasal cannula. Urine cultures of been negative. Blood cultures been negative. No altered mentation. No other significant events over the past 24 hours and the patient's condition is stable for now. She is on Levemir insulin 18 units at bedtime in addition to sliding scale coverage pH is also taking 3 units of NovoLog with meals. Antibiotic coverage was a combination of Zosyn and vancomycin. 05/18/2020, the patient is being seen for a follow-up. She is doing extremely well. She is hemodynamically stable. No respiratory difficulties. No cough sputum production chest tightness or wheezing. She is on 2 L of oxygen by nasal cannula. Sheis in a sinus rhythm with a heart rate of 83. The cellulitis of the left lower extremity is improved. The patient had a urine culture is positive for yeast. Based on that, the antibodies will be switched sputum went to discontinue the Zosyn and put the patient on Augmentin. I'm also going to stop the vancomycin. I'm going to utilize Diflucan regarding the fungal UTI. The patient has a Guzman catheter which will be also removed. Renal function continues to improve in the creatinine is down to 1.3. The patient was r eceiving IV fluids with a normal saline today to 75 mL's an hour. She is producing adequate amount of urine output. No signs of any bleeding. No other complaints otherwise for now. The patient is seen today 05/19/2020 in follow-up on the regular medical floor. She is awake and alert in no acute distress. Denies any shortness of breath, cough or congestion. Maintaining O2 saturations in the 90s on room air. She's afebrile. Urine culture positive for Shonda. Currently on Diflucan. Blood culture reveals no growth. Sodium 138. Potassium 4.6. Bicarb 18. Creatinine 1.03. Glucose 149. She remains on Augmentin. Remains in a negative balance. Objective - Vital Signs Vital signs: Vital Signs Temp 97.5 F L 05/19/20 07:00 Pulse 76 05/19/20 07:00 Resp 18 05/19/20 07:00 BP 165/76 05/19/20 07:00 Pulse Ox 92 L 05/19/20 07:00 Intake & Output 05/18/20 05/19/20 05/19/20 18:59 06:59 18:59 Intake Total 100 Output Total 550 Balance -450 Weight 144.2 kg 151.7 kg Intake: IV 100 Sodium Chloride 0.9% 1, 100 000 ml @ 10 mls/hr IV . Q24H [facility] Rx#:[id number] Output: Urine 550 Other: Voiding Method Bedside Commode Diaper Toilet Bedpan Incontinent # Voids 2 # Bowel Movements 3 - Exam Pleasant 55-year-old female patient, morbid obesity with a BMI 61.2. the patient is alert and oriented 3. She is following commands and answering questions appropriately. She has no specific complaints for now. Head exam was generally normal. There was no scleral icterus or corneal arcus. Mucous membranes were moist. Neck was supple and without jugular venous distension, thyromegaly, or carotid bruits. Carotids were easily palpable bilaterally. There was no adenopathy. Lungs sounds are diminished bilaterally otherwise clear. There is no wheezes or rhonchi or any crackles Cardiac exam revealed the PMI to be normally situated and sized. The rhythm was regular and no extrasystoles were noted during several minutes of auscultation. The first and second heart sounds were normal and physiologic splitting of the second heart sound was noted. There were no murmurs, rubs, clicks, or gallops. Abdomen the patient is super obese. The patient's organs cannot be palpated adequately. There is no obvious organomegaly. Below her abdominal apron, there is some superficial skin wound development in addition to possible candidiasis in her intercrural and falls under abdomen. There is no evidence of any cellulitis at this point in time. No direct tenderness. No rebound tenderness. No guarding. Extremities reveal a cellulitis in the left lower extremity below the knee extending to the ankle along with some superficial skin ulceration. No purulent discharge. It is quite red and erythematous. There is edema in lower extremity is bilaterally. No cyanosis or clubbing. The left lower extremity is well dressed at this point with the appropriate Jewel wraps applied to the left lower extremity. Examination of the left lower extremity shows significant improvement in cellulitis and resolution of the warmth and the redness that was described earlier. Neurologically the patient is altered, not following any commands and responding time. No focal neurological deficits that she withdraws to painful stimulation in all 4 extremities. She can follow also some still occasional simple commands. - Labs CBC & Chem 7: 05/17/20 03:18 05/19/20 06:11 Labs: Abnormal Lab Results - Last 24 Hours (Table) 05/18/20 05/18/20 05/19/20 Range/Units 16:37 20:10 02:30 Chloride (98-107) mmol/L Carbon Dioxide (22-30) mmol/L BUN (7-17) mg/dL Glucose (74-99) mg/dL POC Glucose (mg/dL) 284 H 314 H 174 H (75-99) mg/dL 05/19/20 05/19/20 05/19/20 Range/Units 06:11 06:55 11:23 Chloride 116 H (98-107) mmol/L Carbon Dioxide 18 L (22-30) mmol/L BUN 26 H (7-17) mg/dL Glucose 149 H (74-99) mg/dL POC Glucose (mg/dL) 139 H 203 H (75-99) mg/dL Microbiology - Last 24 Hours (Table) 05/15/20 00:05 Blood Culture - Preliminary Blood No Growth after 96 hours 05/15/20 02:25 Urine Culture - Final Urine,Voided Shonda glabrata Assessment and Plan Assessment: 1 altered mental status likely secondary to metabolic encephalopathy/sepsis recovered and the patient's mental status is back to normal. 2 acute febrile illness in addition to leukocytosis and lactic acidosis, related to underlying sepsis. The patient had a UTI with yeast and the patient also had a left of the left lower extremity and both of these conditions have been treated separately. Mental status is improved. No fever. Cultures were all noted. 3 leukocytosis, improved 4 lactic acidosis, improving 5 morbid obesity with a BMI 57.7 6 diabetes mellitus with complications related to peripheral neuropathy secondary to diabetes mellitus. 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 Abdominal wound is dry clean and intact 8 acute kidney injury and the patient had a mild component of non-anion gap metabolic acidosis , improved and the patient's serum bicarbs up to 20 and a potassium level is down to 4.9 and acute kidney injury continues to improve with a creatinine of 1.7. 9 chronic venous stasis dermatosis and pedal edema in lower extremity bilaterally with a possibility of a superimposed left lower extremity cellulitis, improving 10 history of wound with wound infection secondary to enterococcus and Enterobacter back in 2018 11 poor performance and functional status at baseline 12 mild non-anion gap metabolic acidosis 13 hypertension 14 depression Plan: The patient was seen and evaluated by Dr. Nathan Cleared for discharge from the pulmonary/critical care standpoint Complete a course of Augmentin Complete a course of Diflucan I, the cosigning physician, performed a history & physical examination of the patient. Lungs sounds are clear. Maintaining good O2 saturations in the 90s on room air. I discussed the assessment and plan of care with my nurse practitioner, Gaby Conner. I attest to the above note as dictated by her.
--- NOTE | 2020-05-19 22:32 | P.DS ---
Providers Date of admission: 05/14/20 20:52 Expected date of discharge: 05/19/20 Attending physician: Ori Sarkar Consults: 05/15/20 06:55 Consult Physician Urgent Consulting Provider: Brayden Polanco Reason/Comments: ICU managment Do you want consulting provider notified?: Already Contacted Primary care physician: Brayden Chapin [facility] Course: Chief Complaint: Short of breath History of presenting complaint: This is a 55-year-old patient of Dr. Muñoz. Chronic stable medical conditions include diabetes-on insulin pump, GERD, hypertension, osteoarthritis, depression. morbidly obese. Normally uses a wheelchair lives with her son. Patient was sent in from [facility]. It presented there with altered mental status. Initially found to be hypotensive. Low blood pressure. Given IV fluids. Also febrile with a temperature 101. Given IV vancomycin and meropenem. Patient also was in acute kidney injury lactic acidosis. Possible UTI. chest x-ray showed infiltrates. Possible cellulitis lower extremity. this morning patient was rather lethargic somnolent. received IV hydrocortisone in the ER. Admitted with-pneumonia, UTI with cystitis, sepsis, metabolic encephalopathy, lactic acidosis, cellulitis of left lower extremity. Received vancomycin, Zosyn. Today-doing well. Continue to go home. Off oxygen. Has 3 sons who help her at home. Complete a short course of antibiotic at home. Consultants: Dr. Nathan from critical care Dr. goel from wound center Physical examination: VITAL SIGNS: 97.5, 76, 18, 165/76, 92% room air GENERAL: Sitting up in a chair, comfortable EYES: Pupils equal. Conjunctiva normal. HEENT: External appearance of nose and ears normal, oral cavity grossly dry NECK: JVD unable assess; masses not palpable. HEART: Heart sounds are muffled; no edema. LUNGS: Respiratory rate increased; distant breath sounds. ABDOMEN: Soft, nontender, liver spleen not palpable, no masses palpable. PSYCH: Alert and oriented x3; mood and affect tired. NEUROLOGICAL: Cranial nerves grossly intact; no facial asymmetry, power grossly tired, decreased sensation distally DERMATOLOGICAL: Bilateral lower extremity dry skin with breakdown-evidence of cellulitis INVESTIGATIONS, reviewed in the clinical context: Creatinine 1.03 C. diff negative Previous testing White count 7.9 hemoglobin 8.4 platelets 155 potassium 5.5 bun 42 creatinine 2.61 lactic acid 2.7 troponin I 0.218 COVID 19 PCR not detected EKG tracing personally reviewed by me-normal sinus rhythm Chest x-ray film personally reviewed by me-infiltrates. The right lower lobe Abdominal ultrasound-no evidence of hydronephrosis, corticomedullary differentiation maintained Computed tomography scan of the brain-negative Ultrasound of the right and left leg-negative for DVT UA positive for leukoesterase, WBC, moderate yeast 2-D echocardiogram-EF 55-60% Previous testing: Bun 27 creatinine 1.2 to on January 24 Assessment: - pneumonia, suspect gram-negative organism, POA, causing sepsis- -Blood cultures positive for gram-positive cocci from [facility] -Acute metabolic encephalopathy on presentation from above, POA, -Acute UTI from cystitis causing sepsis, POA -Hyperkalemia secondary to kidney injury and patient being on CHEY inhibitor -Lactic acidosis -Morbid obesity BMI 57.7 -Diabetes mellitus type 2, chronically on insulin pump-patient does not have a insulin pump supplies at the hospital. -GERD -Essential hypertension -Primary osteoarthritis -Depression not otherwise specified -Diabetic peripheral neuropathy -Normocytic anemia cause unknown -Acute kidney injury, likely ATN from sepsis, improving -Hyperkalemia from kidney failure -Lactic acidosis from sepsis -Chronic venous stasis with secondary dermatitis of bilateral lower extremity with possible cellulitis -Chronic gait dysfunction uses a walker at the baseline Disposition: Home Patient Condition at Discharge: Stable Plan - Discharge Summary Discharge Rx Participant: No New Discharge Prescriptions: New Amoxic-Pot Clav 875-125Mg [Augmentin 875-125] 1 each PO Q12HR #6 tab Fluconazole [Diflucan] 100 mg PO DAILY #5 tab Famotidine [Pepcid] 20 mg PO DAILY tab Continue ARIPiprazole [Abilify] 5 mg PO DAILY Gabapentin [Neurontin] 400 mg PO TID DULoxetine HCL [Cymbalta] 60 mg PO BID Pravastatin Sodium [Pravachol] 20 mg PO HS lisinopriL [Zestril] 10 mg PO DAILY HYDROcodone/APAP 7.5-325MG [[place] 7.5-325] 1 tab PO TID PRN PRN Reason: Pain Albuterol Inhaler [Ventolin Hfa Inhaler] 2 puff INHALATION RT-Q4H PRN PRN Reason: Shortness Of Breath metFORMIN HCL [Glucophage] 1,000 mg PO BID Discontinued ALPRAZolam [Xanax] 0.5 mg PO TID Ondansetron [Zofran] 4 mg PO Q8HR Pioglitazone [Actos] 15 mg PO DAILY Discharge Medication List ARIPiprazole [Abilify] 5 mg PO DAILY 01/29/18 [History] DULoxetine HCL [Cymbalta] 60 mg PO BID 01/29/18 [History] Gabapentin [Neurontin] 400 mg PO TID 01/29/18 [History] Pravastatin Sodium [Pravachol] 20 mg PO HS 01/29/18 [History] lisinopriL [Zestril] 10 mg PO DAILY 01/29/18 [History] HYDROcodone/APAP 7.5-325MG [[place] 7.5-325] 1 tab PO TID PRN 12/06/19 [History] Albuterol Inhaler [Ventolin Hfa Inhaler] 2 puff INHALATION RT-Q4H PRN 05/15/20 [History] metFORMIN HCL [Glucophage] 1,000 mg PO BID 05/15/20 [History] Amoxic-Pot Clav 875-125Mg [Augmentin 875-125] 1 each PO Q12HR #6 tab 05/19/20 [Rx] Famotidine [Pepcid] 20 mg PO DAILY tab 05/19/20 [Rx] Fluconazole [Diflucan] 100 mg PO DAILY #5 tab 05/19/20 [Rx] Follow up Appointment(s)/Referral(s): Sima Lopez PAC [REFERRING] - 05/24/20 11:00 am Patient Instructions/Handouts: Sepsis (GEN), Altered Mental Status (ED) Activity/Diet/Wound Care/Special Instructions: resume insulin pump at home continue wound care Discharge Disposition: HOME SELF-CARE
--- NOTE | 2020-05-20 13:28 | CDI ---
Documentation Clarification Form Date: 05/20/20 From: Paige Chandra CCS Phone: If you have a question about this query, please contact Maria Elena Mcdonough, [employer] M[employer] Operator at [phone] between 8am and 5pm. Admit Date: 05/14/20 Discharge Date:05/19/20 Patient Name: Cristal Ferrer Visit Number: [id number] ATTENTION: The Clinical Documentation Specialists (CDI) and [facility] Coding Staff appreciate your assistance in clarifying documentation. Please respond to the clarification below the line at the bottom and electronically sign. The CDI & [facility] Coding staff will review the response and follow-up if needed. Please note: Queries are made part of the Legal Health Record. If you have any questions, please contact the author of this message via ITS. Dear Dr. Sarkar, A pressure ulcer was documented in the Wound Assessment and Dietary Consult notes. Wound Assessment and Dietary Consult notes document: pressure injury bilateral buttocks stage II, pressure injury bilateral breast stage II, pressure injury deep tissue injury right heel. History/Risk Factors: Morbid obesity BMI 57, DM, PNA, HTN, Cellulitis, Shonda cystitis and skin Clinical Indicators: Pressure ulcer Location: Bilateral buttocks stage II, Bilateral breast stage II, Right heel deep tissue injury Treatment: Wound care Consults: Lydia Elements for accurate and compliant documentation of an ulcer: *The location/laterality of the ulcer *Etiology (decubitus/pressure, diabetic, PVD) *Stage I-IV, Unstageable, Suspected Deep Tissue Injury (To the deepest stage) *If the ulcer was present at admission (POA) or occurred after admission In your professional opinion, can you please clarify if you agree with the diagnosis documented by Wound Assessment and Dietary Consult: Stage II Pressure Ulcer Bilateral Buttocks Stage II Pressure Injury Bilateral Breast Deep Tissue Pressure Injury Right Heel Other condition, please specify Unable to determine agree with the diagnosis documented by wound assessment and diet reconsult. MTDD
== END 2020-05-19 14:36 | disposition home or self-care (01) | DRG 871 ==
LOC: EC 19:58 → 2SICU 20:52 → 4SSUR 05-18 21:55
PROVIDERS: ADMIT Hospitalist; ATTEND Hospitalist
PROC: 05HF33Z Insertion of Infusion Device into Left Cephalic Vein, Percutaneous Approach (ICD-10-PCS; principal; 2020-05-16 10:50)
DX: A41.89 Other specified sepsis (principal); N17.0 Acute kidney failure with tubular necrosis; G93.41 Metabolic encephalopathy; J15.6 Pneumonia due to other Gram-negative bacteria; E87.2 Acidosis; Z68.43 Body mass index [BMI] 50.0-59.9, adult; I87.339 Chronic venous hypertension (idiopathic) with ulcer and inflammation of unspecified lower extremity; L97.921 Non-pressure chronic ulcer of unspecified part of left lower leg limited to breakdown of skin; L03.116 Cellulitis of left lower limb; L03.115 Cellulitis of right lower limb; B37.41 Candidal cystitis and urethritis; Z20.828 Contact with and (suspected) exposure to other viral communicable diseases; L89.322 Pressure ulcer of left buttock, stage 2; L89.312 Pressure ulcer of right buttock, stage 2; L89.616 Pressure-induced deep tissue damage of right heel; L89.892 Pressure ulcer of other site, stage 2; E11.42 Type 2 diabetes mellitus with diabetic polyneuropathy; I95.9 Hypotension, unspecified; I50.9 Heart failure, unspecified; I11.0 Hypertensive heart disease with heart failure; E66.01 Morbid (severe) obesity due to excess calories; R65.20 Severe sepsis without septic shock; Z79.4 Long term (current) use of insulin; F32.9 Major depressive disorder, single episode, unspecified; M19.91 Primary osteoarthritis, unspecified site; K21.9 Gastro-esophageal reflux disease without esophagitis; E87.5 Hyperkalemia; R40.2362 Coma scale, best motor response, obeys commands, at arrival to emergency department; R40.2142 Coma scale, eyes open, spontaneous, at arrival to emergency department; R40.2252 Coma scale, best verbal response, oriented, at arrival to emergency department; D64.9 Anemia, unspecified; I87.8 Other specified disorders of veins; I87.2 Venous insufficiency (chronic) (peripheral); R26.9 Unspecified abnormalities of gait and mobility; B37.2 Candidiasis of skin and nail; Z79.899 Other long term (current) drug therapy; Z90.49 Acquired absence of other specified parts of digestive tract; Z96.41 Presence of insulin pump (external) (internal); Z90.710 Acquired absence of both cervix and uterus; Z98.890 Other specified postprocedural states; Z98.891 History of uterine scar from previous surgery; Z87.891 Personal history of nicotine dependence; Z88.1 Allergy status to other antibiotic agents; Z82.49 Family history of ischemic heart disease and other diseases of the circulatory system; Z80.9 Family history of malignant neoplasm, unspecified
CPT/HCPCS: 36410; 36600; 70450; 71045; 76770; 76937; 80048; 80202; 81001; 82805; 83036; 83605; 84484; 85025; 87040; 87086; 87324; 93005; 93306; 93970; 96361; 96374; 99285

== ENCOUNTER 2020-12-30 21:35 | Inpatient (IN) | payer MEDICARE, OTHER ==
--- NOTE | 2020-12-30 21:46 | ED ---
Extremity Problem HPI - General Stated complaint: Foot Pain Time Seen by Provider: 12/30/20 21:40 Source: RN notes reviewed, old records reviewed Mode of arrival: EMS Limitations: altered mental status, physical limitation - History of Present Illness Initial comments: This is a 48-year-old female who is a poor story coming in for a transient for GI bleed. Patient had low hemoglobin and continue surgery ablate here also has complication of possible osteomyelitis and chronic nonhealing wounds. Patient is multiple medical comorbidities a poor strain secondary to mental status currently. MD Complaint: extremity pain, extremity swelling -: days(s) Location: left, lower extremity History of Same: Yes -: Yes myalgia, Yes arthralgia Radiation: none Severity scale (1-10): 3 Quality: burning Consistency: constant Improves with: nothing, immobilization Associated Symptoms: shortness of breath, myalgias, arthralgias - Related Data Home Medications Medication Instructions Recorded Confirmed ARIPiprazole [Abilify] 5 mg PO HS 01/29/18 12/31/20 DULoxetine HCL [Cymbalta] 60 mg PO BID 01/29/18 12/31/20 Pravastatin Sodium [Pravachol] 20 mg PO HS 01/29/18 12/31/20 metFORMIN HCL [Glucophage] 1,000 mg PO BID@0900,1700 05/15/20 12/31/20 Allopurinol [Zyloprim] 300 mg PO DAILY 12/31/20 12/31/20 Liraglutide [Victoza 2-Brenden] 1.8 mg SQ DAILY 12/31/20 12/31/20 Ondansetron [Zofran] 4 mg PO Q8H PRN 12/31/20 12/31/20 Previous Rx's Medication Instructions Recorded Fluconazole [Diflucan] 100 mg PO DAILY #14 tab 01/05/21 Pantoprazole [Protonix] 40 mg PO BID #60 tablet. 01/05/21 Piperacillin-Tazobactam [Zosyn] 3.375 gm IVPB Q8HR #120 bag 01/05/21 Sodium Bicarbonate Tab 1,300 mg PO BID #60 tab 01/05/21 Gabapentin [Neurontin] 100 mg PO BID #10 cap 01/12/21 HYDROcodone/APAP 5-325MG [[place] 1 each PO Q6HR PRN #10 tab 01/12/21 5-325] Allergies Allergy/AdvReac Type Severity Reaction Status Date / Time cephalexin monohydrate AdvReac Nausea & Verified 12/06/19 18:32 [From Keflex] Vomiting Review of Systems ROS Statement: Those systems with pertinent positive or pertinent negative responses have been documented in the HPI. ROS Other: All systems not noted in ROS Statement are negative. Past Medical History Past Medical History: Heart Failure, Diabetes Mellitus, GERD/Reflux, Hypertension, Osteoarthritis (OA) Additional Past Medical History / Comment(s): Depression, Super morbid obesity, Newly diagnosed HF, Neuropathy bilateral legs, Partial small bowel resection with ventral hernia incarceration,-Type 2 diabetes mellitus,-Gastro-Esophageal reflux disease,Hypertension. Chronic venous stasis with dermatosis and pedal edema chronic, enterobacter and enterococal wound infection 2018 History of Any Multi-Drug Resistant Organisms: None Reported Past Surgical History: Section, Cholecystectomy, Hernia Repair, Hysterectomy Past Anesthesia/Blood Transfusion Reactions: No Reported Reaction Past Psychological History: Depression Smoking Status: Former smoker Past Alcohol Use History: None Reported Past Drug Use History: None Reported - Past Family History Mother Family Medical History: Myocardial Infarction ([place]) Father Family Medical History: Cancer General Exam Limitations: altered mental status, physical limitation General appearance: alert, lethargic, in distress, obese Head exam: Present: atraumatic, normocephalic, normal inspection Eye exam: Present: normal appearance, PERRL, EOMI. Absent: scleral icterus, conjunctival injection, periorbital swelling ENT exam: Present: normal exam, mucous membranes moist Neck exam: Present: normal inspection. Absent: tenderness, meningismus, ly mphadenopathy Respiratory exam: Present: normal lung sounds bilaterally. Absent: respiratory distress, wheezes, rales, rhonchi, stridor Cardiovascular Exam: Present: regular rate, normal rhythm, normal heart sounds. Absent: systolic murmur, diastolic murmur, rubs, gallop, clicks GI/Abdominal exam: Present: soft, normal bowel sounds. Absent: distended, tenderness, guarding, rebound, rigid Extremities exam: Present: normal inspection, full ROM, normal capillary refill. Absent: tenderness, pedal edema, joint swelling, calf tenderness Back exam: Present: normal inspection Neurological exam: Present: alert, oriented X3, CN II-XII intact Psychiatric exam: Present: normal affect, normal mood Skin exam: Present: warm, dry, intact, normal color. Absent: rash Course Vital Signs 12/30/20 12/30/20 12/30/20 21:41 22:22 23:44 Temperature 97.7 F Pulse Rate 96 89 Pulse Rate [ Pulse Oximetery ] Respiratory 25 H 24 24 Rate Blood Pressure 138/58 115/50 123/57 Blood Pressure [Right Arm] O2 Sat by Pulse 98 98 98 Oximetry 12/31/20 12/31/20 12/31/20 00:00 00:23 00:30 Temperature 98.4 F Pulse Rate Pulse Rate [ 64 Pulse Oximetery ] Respiratory 25 H 18 22 Rate Blood Pressure 124/57 125/53 Blood Pressure 133/66 [Right Arm] O2 Sat by Pulse 97 96 97 Oximetry 12/31/20 12/31/20 12/31/20 01:00 01:30 02:00 Temperature Pulse Rate Pulse Rate [ Pulse Oximetery ] Respiratory 24 22 22 Rate Blood Pressure 126/49 136/39 127/46 Blood Pressure [Right Arm] O2 Sat by Pulse 98 98 98 Oximetry 12/31/20 12/31/20 12/31/20 02:30 03:00 03:50 Temperature 97.7 F Pulse Rate 100 Pulse Rate [ Pulse Oximetery ] Respiratory 23 24 Rate Blood Pressure 140/57 138/56 132/58 Blood Pressure [Right Arm] O2 Sat by Pulse 97 97 Oximetry 12/31/20 12/31/20 12/31/20 04:09 04:19 04:49 Temperature 97.7 F 97.9 F 98 F Pulse Rate 95 95 93 Pulse Rate [ Pulse Oximetery ] Respiratory 24 24 24 Rate Blood Pressure 132/40 140/55 139/56 Blood Pressure [Right Arm] O2 Sat by Pulse 98 97 Oximetry 12/31/20 12/31/20 12/31/20 06:00 06:31 07:44 Temperature 98 F 99 F Pulse Rate 95 97 Pulse Rate [ Pulse Oximetery ] Respiratory 18 24 Rate Blood Pressure 137/61 124/50 141/64 Blood Pressure [Right Arm] O2 Sat by Pulse 98 99 99 Oximetry 12/31/20 12/31/20 12/31/20 08:39 08:40 08:49 Temperature 99.1 F 99.1 F 99 F Pulse Rate 95 96 96 Pulse Rate [ Pulse Oximetery ] Respiratory 22 22 22 Rate Blood Pressure 137/65 137/65 138/59 Blood Pressure [Right Arm] O2 Sat by Pulse 97 98 97 Oximetry 12/31/20 12/31/20 12/31/20 09:19 10:00 12:00 Temperature 99 F 98.3 F Pulse Rate 96 98 97 Pulse Rate [ Pulse Oximetery ] Respiratory 22 23 22 Rate Blood Pressure 134/63 138/59 143/63 Blood Pressure [Right Arm] O2 Sat by Pulse 97 96 96 Oximetry 12/31/20 12/31/20 12:11 15:00 Temperature 98.4 F 98.9 F Pulse Rate 92 98 Pulse Rate [ Pulse Oximetery ] Respiratory 18 18 Rate Blood Pressure 132/63 144/62 Blood Pressure [Right Arm] O2 Sat by Pulse 97 98 Oximetry - Reevaluation(s) Reevaluation #1: Medical record is reviewed Medical and transfer paperwork is reviewed Symptoms improved here significantly in the emergency room Patient informed results and questions answered Medical Decision Making - Medical Decision Making 48 female who is accepted in transfer for GI bleed complicated by possibly of sepsis and osteomyelitis. Patient will be admitted for monitoring of hemoglobin GI evaluation and IV antibiotics - Lab Data Result diagrams: 01/10/21 11:01 01/12/21 09:50 Lab Results 12/30/20 12/30/20 Range/Units 22:00 22:05 Blood Type A Positive Blood Type Confirm A Positive Blood Type Recheck No Previous Record Bld Type Recheck Status CABO Indicated Antibody Screen NEGATIVE Crossmatch See Detail Spec Expiration Date 01/02/20212299 Disposition Clinical Impression: Weakness, Nonhealing ulcer of left lower extremity limited to breakdown of skin, Anemia, Lower gastrointestinal hemorrhage, Morbid obesity due to excess calories, Lethargy Disposition: ADMITTED IP TO THIS HOSP Condition: Serious
[2020-12-31] MEDS ORDERED: MORPHINE SULFATE 4 MG/ML SYRINGE IV PRN (00:13)
[2020-12-31] MEDS ORDERED: NALOXONE 0.4 MG/ML 1 ML VIAL IV PRN (00:13)
[2020-12-31] MEDS ORDERED: ONDANSETRON 4 MG/2 ML VIAL IVP PRN (00:13)
[2020-12-31] MEDS ORDERED: VANCOMYCIN IV PER PHARMACY 1 EACH MISC MISCELLANE PRN (00:22)
[2020-12-31] MEDS ORDERED: VANCOMYCIN 2,250 MG in SODIUM CHLORIDE 0.9% 500 ML 500 ML IVPB STA (00:26)
[2020-12-31 01:35] LABS: Anisocytosis Slight; Basophils % (A) 0 %; Eosinophils # (A) 0.3 k/uL (0-0.7); Eosinophils % (A) 1 %; Hypochromasia Marked; Lymphocytes # (A) 1.8 k/uL (1.0-4.8); Lymphocytes % (A) 7 %; MCH 23.6 pg (25.0-35.0); MCHC 28.9 g/dL (31.0-37.0); MCV 81.7 fL (80.0-100.0); Microcytosis Slight; Monocytes # (A) 1.8 k/uL (0-1.0); Monocytes % (A) 7 %; Neutrophils # (A) 22.9 k/uL (1.3-7.7); Neutrophils % (A) 84 %; Platelet Count 383 k/uL (150-450); Poikilocytosis Slight; RBC 2.36 m/uL (3.80-5.40); RDW 19.6 % (11.5-15.5); WBC 27.3 k/uL (3.8-10.6)
[2020-12-31 01:54] LABS: Albumin 2.6 g/dL (3.5-5.0); Calcium 8.4 mg/dL (8.4-10.2); Potassium 5.8 mmol/L (3.5-5.1); Total Bilirubin 0.8 mg/dL (0.2-1.3); Total Protein 7.5 g/dL (6.3-8.2)
[2020-12-31 02:02] LABS: HCT 19.2 % (34.0-46.0); HGB 5.6 gm/dL (11.4-16.0)
[2020-12-31 02:16] LABS: Poikilocytosis (M) Present; Polychromasia Present; Rouleaux Present
[2020-12-31 03:56] LABS: Glucose,Whole Blood 81 mg/dL (75-99)
[2020-12-31] MEDS ORDERED: FUROSEMIDE 10 MG/ML 10 ML VIAL IV STA (06:22)
--- NOTE | 2020-12-31 06:27 | XR ---
EXAMINATION TYPE: XR chest 1V portable DATE OF EXAM: 12/31/2020 CLINICAL HISTORY: Chest pain. Shortness of breath rule out fluid overload state. TECHNIQUE: Single AP portable semiupright view of the chest is obtained. COMPARISON: Chest x-ray from May 15, 2020 FINDINGS: Chronic parenchymal parenchymal changes with right greater than left bibasilar opacities r edemonstrated. Persistent cardiomegaly. New curly B lines in the left lung periphery. Osseous structu res are intact. No pleural effusions. IMPRESSION: Cardiomegaly with new interstitial edema/Nimo B lines consistent with CHF exacerbation and/or fluid overload state on background chronic changes.
[2020-12-31 06:55] LABS: Glucose,Whole Blood 84 mg/dL (75-99)
[2020-12-31] MEDS ORDERED: ACETAMINOPHEN IV (For NPO) 1,000 MG in EMPTY BAG 1 BAG IVPB STA (07:46)
[2020-12-31 08:33] LABS: Amorphous Sediment,Urine Rare /hpf; Appearance,Urine Cloudy (Clear); Bacteria,Urine Many /hpf; Bilirubin,Urine Negative (Negative); Blood,Urine Small (Negative); Color,Urine Yellow; Glucose,Urine (UA) Negative (Negative); Hyaline Casts,Urine 7 /lpf (0-2); Ketones,Urine Negative (Negative); Leukocyte Esterase,Urine Large (Negative); Mucus,Urine Rare /hpf; Nitrite,Urine Negative (Negative); Protein,Urine 1+ (Negative); RBC,Urine 7 /hpf (0-5); Specific Gravity,Urine 1.016 (1.001-1.035); Squamous Epithelial Cell,Urine 1 /hpf (0-4); Urobilinogen,Urine <2.0 mg/dL (<2.0); WBC,Urine 94 /hpf (0-5)
[2020-12-31] MEDS ORDERED: PANTOPRAZOLE 40 MG/10 ML VIAL IV SCH (09:00)
[2020-12-31] MEDS ORDERED: ONDANSETRON 4 MG TAB PO PRN (11:48)
[2020-12-31] MEDS: ARIPiprazole 5 MG TAB PO SCH ×2 (12:31→20:01)
[2020-12-31] MEDS: FLUCONAZOLE IN NACL,ISO-OSM 100 MG in SALINE 1 50ML.BAG IVPB SCH (12:31)
[2020-12-31] MEDS: FUROSEMIDE 10 MG/ML 4 ML VIAL IV SCH ×3 (12:37→23:25)
[2020-12-31 14:57] LABS: Anisocytosis Slight; HCT 24.6 % (34.0-46.0); Hypochromasia Marked; MCH 23.7 pg (25.0-35.0); MCHC 28.5 g/dL (31.0-37.0); MCV 83.4 fL (80.0-100.0); Mean Platelet Volume 8.2; Microcytosis Slight; Platelet Count 382 k/uL (150-450); Poikilocytosis Moderate; RBC 2.95 m/uL (3.80-5.40)
[2020-12-31 15:15] LABS: Albumin 2.6 g/dL (3.5-5.0); Calcium 8.6 mg/dL (8.4-10.2); Total Bilirubin 0.8 mg/dL (0.2-1.3); Total Protein 7.6 g/dL (6.3-8.2)
[2020-12-31 15:22] LABS: Potassium 5.8 mmol/L (3.5-5.1)
--- NOTE | 2020-12-31 15:49 | P.HPIM ---
History of Present Illness Patient is a 55-year-old female answer from [facility] because of the extreme low hemoglobin. And has a hemoglobin enforce after which patient is received monitor transfusion subsequently transferred here. Patient is to [address] [place] [address] units of transfusion here patient present hemoglobin is 7.0 patient did have blood in the stools which happened a few days ago denied any recent GI bleed. Patient denied any loss stools. Patient does have multiple other issues going on. Patient is mostly bedbound barely can move around patient lives with the her son who takes care of for, patient is complaining of odynophagia does have some oral thrush with blood and bloody discharge in the time. Patient has multiple ulcerations with foul-smelling discharge. Patient was started on vancomycin. Patient does have leukocytosis doesn't have any fever. Patient is also found to have pulmonary edema receiving IV Lasix patient does have bi lateral lower limb edema patient had a normal ejection fraction the past. Patient is also receiving Lasix at this time. Patient was hyperkalemic as well patient is also on lisinopril patient baseline creatinine appears to be normal presently 2.03. Patient has significant superficial fungal infection in the skin folds. Patient is also comparing of shortness of breath. Review of Systems All other review of systems is negative except those mentioned above Past Medical History Past Medical History: Heart Failure, Diabetes Mellitus, GERD/Reflux, Hypertension, Osteoarthritis (OA) Additional Past Medical History / Comment(s): Depression, Super morbid obesity, Newly diagnosed HF, Neuropathy bilateral legs, Partial small bowel resection with ventral hernia incarceration,-Type 2 diabetes mellitus,-Gastro-Esophageal reflux disease,Hypertension. Chronic venous stasis with dermatosis and pedal edema chronic, enterobacter and enterococal wound infection 2018 History of Any Multi-Drug Resistant Organisms: None Reported Past Surgical History: Section, Cholecystectomy, Hernia Repair, Hysterectomy Past Anesthesia/Blood Transfusion Reactions: No Reported Reaction Past Psychological History: Depression Smoking Status: Former smoker Past Alcohol Use History: None Reported Past Drug Use History: None Reported - Past Family History Mother Family Medical History: Myocardial Infarction ([place]) Father Family Medical History: Cancer Medications and Allergies Home Medications Medication Instructions Recorded Confirmed Type ARIPiprazole [Abilify] 5 mg PO HS 01/29/18 12/31/20 History DULoxetine HCL [Cymbalta] 60 mg PO BID 01/29/18 12/31/20 History Pravastatin Sodium [Pravachol] 20 mg PO HS 01/29/18 12/31/20 History lisinopriL [Zestril] 10 mg PO DAILY 01/29/18 12/31/20 History metFORMIN HCL [Glucophage] 1,000 mg PO BID@0900,1700 05/15/20 12/31/20 History ALPRAZolam [Xanax] 0.5 mg PO BID 12/31/20 12/31/20 History Allopurinol [Zyloprim] 300 mg PO DAILY 12/31/20 12/31/20 History Furosemide [Lasix] 40 mg PO BID 12/31/20 12/31/20 History Gabapentin 300 mg PO BID 12/31/20 12/31/20 History Ibuprofen [Motrin] 800 mg PO DAILY 12/31/20 12/31/20 History Liraglutide [Victoza 2-Brenden] 1.8 mg SQ DAILY 12/31/20 12/31/20 History Ondansetron [Zofran] 4 mg PO Q8H PRN 12/31/20 12/31/20 History Allergies Allergy/AdvReac Type Severity Reaction Status Date / Time cephalexin monohydrate AdvReac Nausea & Verified 12/06/19 18:32 [From Keflex] Vomiting Physical Exam Vitals: Vital Signs Temp Pulse Resp BP Pulse Ox 12/31/20 15:00 98.9 F 98 18 144/62 98 12/31/20 12:11 98.6 F 98 22 137/64 97 12/31/20 12:00 98.3 F 97 22 143/63 96 12/31/20 10:00 98 23 138/59 96 12/31/20 09:19 99 F 96 22 134/63 97 12/31/20 08:49 99 F 96 22 138/59 97 12/31/20 08:40 99.1 F 96 22 137/65 98 12/31/20 08:39 99.1 F 95 22 137/65 97 12/31/20 07:44 99 F 97 24 141/64 99 12/31/20 06:31 98 F 95 18 124/50 99 12/31/20 06:00 137/61 98 12/31/20 04:49 98 F 93 24 139/56 97 12/31/20 04:19 97.9 F 95 24 140/55 98 12/31/20 04:09 97.7 F 95 24 132/40 12/31/20 03:50 97.7 F 100 24 132/58 97 12/31/20 03:00 138/56 12/31/20 02:30 23 140/57 97 12/31/20 02:00 22 127/46 98 12/31/20 01:30 22 136/39 98 12/31/20 01:00 24 126/49 98 12/31/20 00:30 22 125/53 97 12/31/20 00:00 25 H 124/57 97 12/30/20 23:44 24 123/57 98 12/30/20 22:22 89 24 115/50 98 12/30/20 21:41 97.7 F 96 25 H 138/58 98 Intake and Output 12/31/20 12/31/20 12/31/20 06:59 14:59 22:59 Intake Total 310 310 Balance 310 310 Intake: Blood Product 310 310 Rc As-1 Unit 310 [id number] Rc As-1 Unit 310 [id number] PHYSICAL EXAMINATION: GENERAL: The patient is alert and oriented x3, not in any acute distress. Obese , unkempt HEENT: Pupils are round and equally reacting to light. EOMI. No scleral icterus. No conjunctival pallor. Normocephalic, atraumatic. No pharyngeal erythema. No thyromegaly. Oral thrush CARDIOVASCULAR: S1 and S2 present. No murmurs, rubs, or gallops. PULMONARY: Chest is clear to auscultation, no wheezing or crackles. ABDOMEN: Soft, nontender, nondistended, normoactive bowel sounds. No palpable organomegaly. MUSCULOSKELETAL: No joint swelling or deformity. EXTREMITIES: No cyanosis, clubbing, extensive bilateral pedal edema with multiple ulcerations with fall smelling discharge NEUROLOGICAL: Gross neurological examination did not reveal any focal deficits. SKIN: Candidial intertrigo Results CBC & Chem 7: 12/31/20 14:33 12/31/20 14:33 Labs: Abnormal Lab Results - Last 24 Hours (Table) 12/30/20 12/31/20 12/31/20 Range/Units 22:00 01:26 01:26 WBC 27.3 H (3.8-10.6) k/uL RBC 2.36 L (3.80-5.40) m/uL Hgb 5.6 L* (11.4-16.0) gm/dL Hct 19.2 L* (34.0-46.0) % MCH 23.6 L (25.0-35.0) pg MCHC 28.9 L (31.0-37.0) g/dL RDW 19.6 H (11.5-15.5) % Neutrophils # 22.9 H (1.3-7.7) k/uL Monocytes # 1.8 H (0-1.0) k/uL Potassium 5.8 H (3.5-5.1) mmol/L Chloride 117 H (98-107) mmol/L Carbon Dioxide 14 L (22-30) mmol/L BUN 69 H (7-17) mg/dL Creatinine 2.03 H (0.52-1.04) mg/dL Glucose 108 H (74-99) mg/dL Alkaline Phosphatase 215 H (38-126) U/L Albumin 2.6 L (3.5-5.0) g/dL Urine Appearance (Clear) Urine Protein (Negative) Urine Blood (Negative) Ur Leukocyte Esterase (Negative) Urine RBC (0-5) /hpf Urine WBC (0-5) /hpf Urine WBC Clumps (None) /hpf Amorphous Sediment (None) /hpf Urine Bacteria (None) /hpf Hyaline Casts (0-2) /lpf Urine Mucus (None) /hpf Crossmatch See Detail 12/31/20 12/31/20 12/31/20 Range/Units 08:09 14:33 14:33 WBC 24.0 H (3.8-10.6) k/uL RBC 2.95 L (3.80-5.40) m/uL Hgb 7.0 L (11.4-16.0) gm/dL Hct 24.6 L (34.0-46.0) % MCH 23.7 L (25.0-35.0) pg MCHC 28.5 L (31.0-37.0) g/dL RDW 19.0 H (11.5-15.5) % Neutrophils # (1.3-7.7) k/uL Monocytes # (0-1.0) k/uL Potassium 5.8 H (3.5-5.1) mmol/L Chloride 118 H (98-107) mmol/L Carbon Dioxide 13 L (22-30) mmol/L BUN 66 H (7-17) mg/dL Creatinine 1.90 H (0.52-1.04) mg/dL Glucose 139 H (74-99) mg/dL Alkaline Phosphatase 226 H (38-126) U/L Albumin 2.6 L (3.5-5.0) g/dL Urine Appearance Cloudy H (Clear) Urine Protein 1+ H (Negative) Urine Blood Small H (Negative) Ur Leukocyte Esterase Large H (Negative) Urine RBC 7 H (0-5) /hpf Urine WBC 94 H (0-5) /hpf Urine WBC Clumps Many H (None) /hpf Amorphous Sediment Rare H (None) /hpf Urine Bacteria Many H (None) /hpf Hyaline Casts 7 H (0-2) /lpf Urine Mucus Rare H (None) /hpf Crossmatch Microbiology - Last 24 Hours (Table) 12/31/20 08:09 Urine Culture - Preliminary Urine,Voided Assessment and Plan Plan: Severe anemia with recent blood loss presently not actively bleeding: Patient the will receive blood transfusion patient's hemoglobin is presently 7.00 total of 3 units of PRBC transfusion. Gastroneurology was consulted -Congestive heart failure chronic discharge dysfunction with acute exacerbation patient will be started on IV Lasix patient has highly elevated BNP bilateral pedal edema elevated JVD as well as chest x-ray findings of her congestive heart failure -Hypokalemia secondary to losartan and acute renal failure -Acute renal failure secondary to prerenal azotemia from a congestive heart failure expected to improve with Lasix, losartan will be held -Bilateral lower extremity edema with chronic venous stasis and chronic venous stasis ulcerations: Patient will be started on Unasyn, vancomycin. Wound Care was consulted infectious disease will be consulted. Wound culture and blood cultures were obtained. -Leukocytosis secondary to extensive wounds and bilateral lower extremity Candidal intertrigo topical nystatin powder -Possible candidal esophagitis for which patient was started on IV flucanazole -Type 2 diabetes mellitus -Hypertension -Depression -Morbid obesity - DVT prophylaxis with subcutaneous heparin
[2020-12-31] MEDS: HEPARIN SODIUM,PORCINE/PF 5,000 UNIT/0.5 ML SYRINGE SQ SCH ×2 (15:57→23:25)
[2020-12-31] MEDS: NYSTATIN 100,000 UNIT/GM POWD 15 GM TOPICAL SCH ×2 (15:58→23:26)
[2020-12-31 17:06] LABS: Glucose,Whole Blood 158 mg/dL (75-99)
[2020-12-31] MEDS: AMPICILLIN-SULBACTAM 3 GM in SODIUM CHLORIDE 0.9% 100 ML IVPB SCH (20:00)
[2020-12-31] MEDS: GABAPENTIN 100 MG CAP PO SCH (20:01)
[2020-12-31] MEDS: PANTOPRAZOLE 40 MG/10 ML VIAL IV SCH (20:01)
[2020-12-31] MEDS: DULoxetine HCL 60 MG CAPSULE.DR PO SCH (20:01)
[2020-12-31] MEDS ORDERED: PRAVASTATIN SODIUM 20 MG TAB PO SCH (21:00)
[2020-12-31 21:23] LABS: Glucose,Whole Blood 201 mg/dL (75-99)
[2021-01-01] MEDS ORDERED: VANCOMYCIN 2,250 MG in SODIUM CHLORIDE 0.9% 500 ML 500 ML IVPB ONE (01:00)
[2021-01-01 06:10] LABS: Glucose,Whole Blood 190 mg/dL (75-99)
--- NOTE | 2021-01-01 06:37 | CONS ---
CONSULTATION DATE OF SERVICE: 12/31/2020 REASON FOR CONSULTATION: Left diabetic foot ulcer and cellulitis. HISTORY OF PRESENT ILLNESS: The patient is a 55-year-old female with past medical history significant for diabetes mellitus. The patient did have a history of diabetic foot ulcer and the patient used to follow with me at [facility]. She recently did have healing of her wound and was discharged from the [facility]. The patient presented to [facility] for evaluation of low hemoglobin and weakness. Apparently, did have blood transfusion done and subsequently has been transferred to [facility] for further evaluation. The patient was complaining of some bleeding per rectum a few days prior to presentation to the hospital. The patient denies having any abdominal pain. The patient denies having any nausea, no vomiting, no chest pain, shortness of breath or cough. She was noticed to have worsening of her left foot wound with foul-smelling drainage. The patient mentioned she noticed her wound getting worse over the last few days. Denies having any history of any trauma. The patient did have some foul-smelling drainage and has not been on antibiotic in the recent past. Patient on presentation to the hospital was afebrile and no fever has been recorded in the last 24 hours. The patient did have a white count of 27,000, hemoglobin was 5.6, white count 24,000 creatinine is 1.90, was 5.8. The patient was started on vancomycin. Infectious Disease was consulted for further management of the left foot wound and cellulitis. REVIEW OF SYSTEMS: Positive points have been mentioned in HPI. Rest of systems are negative. PAST MEDICAL HISTORY: Heart failure, diabetes mellitus, gastroesophageal reflux disease, hypertension, osteoarthritis, diabetic foot ulcer, depression. PAST SURGICAL HISTORY: , cholecystectomy, hernia repair, hysterectomy. SOCIAL HISTORY: Remote history of smoking. No drinking or drug use. FAMILY HISTORY: Mother with history of SD. Father with history of cancer. ALLERGIES: CEPHALEXIN. MEDICATIONS: Include the patient is currently on [place], started on Unasyn. Abilify, Diflucan, Cymbalta, Lasix, Neurontin, Narcan, Mycostatin powder, Zofran and vancomycin. PHYSICAL EXAMINATION: VITAL SIGNS: Her blood pressure is 148/74 with a pulse of 90, temperature 97.9. She is 97% on 2 L nasal cannula. GENERAL DESCRIPTION: Patient is a middle-aged female lying in bed in no distress. No tachypnea or accessory muscles of respiration use. HEENT: Examination shows pallor, no scleral icterus. Oral mucous membrane is dry. NECK: Trachea central, no thyromegaly. LUNGS: Unlabored breathing, decreased breath sounds at the bases. No wheeze. HEART: S1-S2, regular rate and rhythm. ABDOMEN: Soft, no tenderness. No guarding or rigidity. EXTREMITIES: Did have diffuse swelling in bilateral lower extremities. Left foot plantar aspect did have ulceration, foul-smelling drainage. NEUROLOGICAL: Patient is awake, alert, oriented. Mood and affect normal. LABS: Hemoglobin 7, white count 24,000, BUN of 66, creatinine 1.90. DIAGNOSTIC IMPRESSION: 1. Patient with left diabetic foot infection with significant foul smelling drainage, concern for underlying abscess and will need to cover for the polymicrobial sherie usually associated with these infections. 2. Patient did have renal insufficiency and high risk of nephrotoxicity from vancomycin. PLAN: 1. Discontinue the vancomycin. 2. Local wound culture both aerobic and anaerobic. 3. Unasyn 3 g q.12h. We will add daptomycin. 4. Obtain a CT of the left foot to make sure no evidence of any deep abscess. 5. Vascular Surgery evaluation for possible drainage and deep cultures. 6. We will follow on clinical condition and culture to further adjust medication if needed. Thank you for this consultation. Will follow this patient along with you. MMODL / IJN: [id number] / JAMIL
[2021-01-01 08:12] LABS: Albumin 2.5 g/dL (3.5-5.0); Calcium 8.4 mg/dL (8.4-10.2); Potassium 5.2 mmol/L (3.5-5.1); Total Bilirubin 1.2 mg/dL (0.2-1.3); Total Protein 7.4 g/dL (6.3-8.2)
[2021-01-01 08:24] LABS: Anisocytosis Slight; Basophils % (A) 0 %; Eosinophils # (A) 0.3 k/uL (0-0.7); Eosinophils % (A) 2 %; HCT 25.2 % (34.0-46.0); HGB 7.7 gm/dL (11.4-16.0); Hypochromasia Marked; Lymphocytes # (A) 1.3 k/uL (1.0-4.8); Lymphocytes % (A) 8 %; MCH 25.9 pg (25.0-35.0); MCHC 30.7 g/dL (31.0-37.0); MCV 84.4 fL (80.0-100.0); Mean Platelet Volume 8.7; Microcytosis Slight; Monocytes # (A) 0.8 k/uL (0-1.0); Monocytes % (A) 5 %; Neutrophils # (A) 13.6 k/uL (1.3-7.7); Neutrophils % (A) 83 %; Platelet Count 315 k/uL (150-450); Poikilocytosis Moderate; RBC 2.99 m/uL (3.80-5.40); RDW 19.5 % (11.5-15.5); WBC 16.4 k/uL (3.8-10.6)
[2021-01-01] MEDS: HEPARIN SODIUM,PORCINE/PF 5,000 UNIT/0.5 ML SYRINGE SQ SCH ×3 (08:57→23:34)
[2021-01-01] MEDS: FUROSEMIDE 10 MG/ML 4 ML VIAL IV SCH ×3 (09:06→23:34)
[2021-01-01] MEDS: NYSTATIN 100,000 UNIT/GM POWD 15 GM TOPICAL SCH ×3 (09:07→20:37)
[2021-01-01] MEDS: GABAPENTIN 100 MG CAP PO SCH ×2 (09:07→22:16)
[2021-01-01] MEDS: AMPICILLIN-SULBACTAM 3 GM in SODIUM CHLORIDE 0.9% 100 ML IVPB SCH ×2 (09:07→20:38)
[2021-01-01] MEDS: DULoxetine HCL 60 MG CAPSULE.DR PO SCH ×2 (09:07→22:17)
[2021-01-01] MEDS: NON FORMULARY DRUG (Liraglutide [Victoza 2-Pak] 0.6 MG/0.1 ML Pen.Injctr) SQ SCH (09:08)
[2021-01-01] MEDS: PANTOPRAZOLE 40 MG/10 ML VIAL IV SCH ×2 (09:08→20:37)
[2021-01-01 09:13] LABS: Mixed Population RBC Present; Rouleaux Present
[2021-01-01] MEDS: HYDROcodone/APAP 5-325MG 1 EACH TAB PO PRN (09:15)
[2021-01-01] MEDS: FLUCONAZOLE IN NACL,ISO-OSM 100 MG in SALINE 1 50ML.BAG IVPB SCH (11:17)
[2021-01-01 12:19] LABS: Glucose,Whole Blood 238 mg/dL (75-99)
--- NOTE | 2021-01-01 12:21 | CT ---
EXAMINATION TYPE: CT foot LT wo con DATE OF EXAM: 01/01/2021 COMPARISON: Known. HISTORY: Left foot pain and swelling. Abscess. CT DLP: 171.1 mGycm Automated exposure control for dose reduction was used. FINDINGS: Heterogeneous bony destruction and fluid midfoot level affecting portions of the navicular bone along with the cuneiforms. Severe narrowing base of fifth metatarsal with the lateral cuneiform. Chip type fracture from the base of fifth metatarsal peroneal of this attachment sagittal image 19 on axial im age 54. Pes planus deformity. Cuboid bone grossly intact. There is intra-articular fracture through b ase of third metatarsal suspected site of soft tissue swelling and edema. Fracture of bony destructio n noted at this level along with base of fourth metatarsal The calcaneus shows sclerosis. There is narrowing of the subtalar joint sclerosis greatest anteriorly on sagittal images. Talus and calcaneus are intact. Moderate diffuse subcutaneous edema and soft tissue swelling is seen throughout the left ankle and fo ot. Flexion in the toes is present. Hallux valgus positioning metatarsophalangeal joints in general. No bony destruction at this forefoot level. IMPRESSION: Significant midfoot findings as detailed above. Presence of fluid and bony destruction encinas ggests infectious process consistent with abscess/osteomyelitis versus possible Charcot-type arthropa thy or other inflammatory arthropathy. Strict clinical correlation advised.
--- NOTE | 2021-01-01 13:13 | P.GSCN ---
History of Present Illness History of present illness: 56-year-old white female, patient has history of diabetes, coronary chronic renal failure, obesity, patient came with the left foot abscess and and drainage of pus and graft wound on the plantar aspect with foul odor consulted for wound debridement and I&D of the abscess. Patient is an IV antibiotic under care of infectious disease left foot has a wound on the plantar aspect with drainage of pus and a and and redness on the plantar aspect of the foot patient is scheduled to have a I&D and wound debridement of the left foot Neck examination neck supple no bruit appreciated Chest is is clear few rhonchi lung bases first and second sound present Abdomen nontender Vascular femorals are 1+ bilateral patient has some Brown induration of the lower extremity with left foot plantar chronic wound with drainage and abscess formation plan is a debridement debridement of the wound I I&D of the abscess risk and complication discussed Past Medical History Past Medical History: Heart Failure, Diabetes Mellitus, GERD/Reflux, Hypertension, Osteoarthritis (OA) Additional Past Medical History / Comment(s): Depression, Super morbid obesity, Newly diagnosed HF, Neuropathy bilateral legs, Partial small bowel resection with ventral hernia incarceration,-Type 2 diabetes mellitus,-Gastro-Esophageal reflux disease,Hypertension. Chronic venous stasis with dermatosis and pedal edema chronic, enterobacter and enterococal wound infection 2018 History of Any Multi-Drug Resistant Organisms: None Reported Past Surgical History: Section, Cholecystectomy, Hernia Repair, Hysterectomy Past Anesthesia/Blood Transfusion Reactions: No Reported Reaction Past Psychological History: Depression Smoking Status: Former smoker Past Alcohol Use History: None Reported Past Drug Use History: None Reported - Past Family History Mother Family Medical History: Myocardial Infarction (NM) Father Family Medical History: Cancer Medications and Allergies Home Medications Medication Instructions Recorded Confirmed Type ARIPiprazole [Abilify] 5 mg PO HS 01/29/18 12/31/20 History DULoxetine HCL [Cymbalta] 60 mg PO BID 01/29/18 12/31/20 History Pravastatin Sodium [Pravachol] 20 mg PO HS 01/29/18 12/31/20 History lisinopriL [Zestril] 10 mg PO DAILY 01/29/18 12/31/20 History metFORMIN HCL [Glucophage] 1,000 mg PO BID@0900,1700 05/15/20 12/31/20 History ALPRAZolam [Xanax] 0.5 mg PO BID 12/31/20 12/31/20 History Allopurinol [Zyloprim] 300 mg PO DAILY 12/31/20 12/31/20 History Furosemide [Lasix] 40 mg PO BID 12/31/20 12/31/20 History Gabapentin 300 mg PO BID 12/31/20 12/31/20 History Ibuprofen [Motrin] 800 mg PO DAILY 12/31/20 12/31/20 History Liraglutide [Victoza 2-Brenden] 1.8 mg SQ DAILY 12/31/20 12/31/20 History Ondansetron [Zofran] 4 mg PO Q8H PRN 12/31/20 12/31/20 History Allergies Allergy/AdvReac Type Severity Reaction Status Date / Time cephalexin monohydrate AdvReac Nausea & Verified 12/06/19 18:32 [From Keflex] Vomiting Surgical - Exam Vital Signs Temp Pulse Resp BP Pulse Ox 97.7 F 96 25 H 138/58 98 12/30/20 21:41 12/30/20 21:41 12/30/20 21:41 12/30/20 21:41 12/30/20 21:41 Results - Labs 01/01/21 06:46 01/01/21 06:46 Abnormal Lab Results - Last 24 Hours (Table) 12/30/20 12/31/20 12/31/20 Range/Units 22:00 14:33 14:33 WBC 24.0 H (3.8-10.6) k/uL RBC 2.95 L (3.80-5.40) m/uL Hgb 7.0 L (11.4-16.0) gm/dL Hct 24.6 L (34.0-46.0) % MCH 23.7 L (25.0-35.0) pg MCHC 28.5 L (31.0-37.0) g/dL RDW 19.0 H (11.5-15.5) % Neutrophils # (1.3-7.7) k/uL Potassium 5.8 H (3.5-5.1) mmol/L Chloride 118 H (98-107) mmol/L Carbon Dioxide 13 L (22-30) mmol/L BUN 66 H (7-17) mg/dL Creatinine 1.90 H (0.52-1.04) mg/dL Glucose 139 H (74-99) mg/dL POC Glucose (mg/dL) (75-99) mg/dL Alkaline Phosphatase 226 H (38-126) U/L Albumin 2.6 L (3.5-5.0) g/dL Crossmatch See Detail 12/31/20 12/31/20 01/01/21 Range/Units 16:41 21:21 06:07 WBC (3.8-10.6) k/uL RBC (3.80-5.40) m/uL Hgb (11.4-16.0) gm/dL Hct (34.0-46.0) % MCH (25.0-35.0) pg MCHC (31.0-37.0) g/dL RDW (11.5-15.5) % Neutrophils # (1.3-7.7) k/uL Potassium (3.5-5.1) mmol/L Chloride (98-107) mmol/L Carbon Dioxide (22-30) mmol/L BUN (7-17) mg/dL Creatinine (0.52-1.04) mg/dL Glucose (74-99) mg/dL POC Glucose (mg/dL) 158 H 201 H 190 H (75-99) mg/dL Alkaline Phosphatase (38-126) U/L Albumin (3.5-5.0) g/dL Crossmatch 01/01/21 01/01/21 01/01/21 Range/Units 06:46 06:46 11:53 WBC 16.4 H (3.8-10.6) k/uL RBC 2.99 L (3.80-5.40) m/uL Hgb 7.7 L (11.4-16.0) gm/dL Hct 25.2 L (34.0-46.0) % MCH (25.0-35.0) pg MCHC 30.7 L (31.0-37.0) g/dL RDW 19.5 H (11.5-15.5) % Neutrophils # 13.6 H (1.3-7.7) k/uL Potassium 5.2 H (3.5-5.1) mmol/L Chloride 114 H (98-107) mmol/L Carbon Dioxide 16 L (22-30) mmol/L BUN 63 H (7-17) mg/dL Creatinine 1.70 H (0.52-1.04) mg/dL Glucose 174 H (74-99) mg/dL POC Glucose (mg/dL) 238 H (75-99) mg/dL Alkaline Phosphatase 214 H (38-126) U/L Albumin 2.5 L (3.5-5.0) g/dL Crossmatch Microbiology - Last 24 Hours (Table) 12/30/20 22:20 Blood Culture - Preliminary Blood No Growth after 24 hours 12/30/20 22:05 Blood Culture - Preliminary Blood No Growth after 24 hours 12/31/20 08:09 Urine Culture - Preliminary Urine,Voided Diabetes panel 12/31/20 01/01/21 Range/Units 14:33 06:46 Sodium 141 140 (137-145) mmol/L Potassium 5.8 H 5.2 H (3.5-5.1) mmol/L Chloride 118 H 114 H (98-107) mmol/L Carbon Dioxide 13 L 16 L (22-30) mmol/L BUN 66 H 63 H (7-17) mg/dL Creatinine 1.90 H 1.70 H (0.52-1.04) mg/dL Glucose 139 H 174 H (74-99) mg/dL Calcium 8.6 8.4 (8.4-10.2) mg/dL AST 29 23 (14-36) U/L ALT 12 11 (4-34) U/L Alkaline Phosphatase 226 H 214 H (38-126) U/L Total Protein 7.6 7.4 (6.3-8.2) g/dL Albumin 2.6 L 2.5 L (3.5-5.0) g/dL Calcium panel 12/31/20 01/01/21 Range/Units 14:33 06:46 Calcium 8.6 8.4 (8.4-10.2) mg/dL Albumin 2.6 L 2.5 L (3.5-5.0) g/dL Pituitary panel 12/31/20 01/01/21 Range/Units 14:33 06:46 Sodium 141 140 (137-145) mmol/L Potassium 5.8 H 5.2 H (3.5-5.1) mmol/L Chloride 118 H 114 H (98-107) mmol/L Carbon Dioxide 13 L 16 L (22-30) mmol/L BUN 66 H 63 H (7-17) mg/dL Creatinine 1.90 H 1.70 H (0.52-1.04) mg/dL Glucose 139 H 174 H (74-99) mg/dL Calcium 8.6 8.4 (8.4-10.2) mg/dL Adrenal panel 12/31/20 01/01/21 Range/Units 14:33 06:46 Sodium 141 140 (137-145) mmol/L Potassium 5.8 H 5.2 H (3.5-5.1) mmol/L Chloride 118 H 114 H (98-107) mmol/L Carbon Dioxide 13 L 16 L (22-30) mmol/L BUN 66 H 63 H (7-17) mg/dL Creatinine 1.90 H 1.70 H (0.52-1.04) mg/dL Glucose 139 H 174 H (74-99) mg/dL Calcium 8.6 8.4 (8.4-10.2) mg/dL Total Bilirubin 0.8 1.2 (0.2-1.3) mg/dL AST 29 23 (14-36) U/L ALT 12 11 (4-34) U/L Alkaline Phosphatase 226 H 214 H (38-126) U/L Total Protein 7.6 7.4 (6.3-8.2) g/dL Albumin 2.6 L 2.5 L (3.5-5.0) g/dL
--- NOTE | 2021-01-01 15:25 | P.PN ---
Subjective Patient is a 55-year-old female answer from [facility] because of the extreme low hemoglobin. And has a hemoglobin enforce after which patient is received monitor transfusion subsequently transferred here. Patient is to 2 more units of transfusion here patient present hemoglobin is 7.0 patient did have blood in the stools which happened a few days ago denied any recent GI bleed. Patient denied any loss stools. Patient does have multiple other issues going on. Patient is mostly bedbound barely can move around patient lives with the her son who takes care of for, patient is complaining of odynophagia does have some oral thrush with blood and bloody discharge in the time. Patient has multiple ulcerations with foul-smelling discharge. Patient was started on vancomycin. Patient does have leukocytosis doesn't have any fever. Patient is also found to have pulmonary edema receiving IV Lasix patient does have bilateral lower limb edema patient had a normal ejection fraction the past. Patient is also receiving Lasix at this time. Patient was hyperkalemic as well patient is also on lisinopril patient baseline creatinine appears to be normal presently 2.03. Patient has significant superficial fungal infection in the skin folds. Patient is also comparing of shortness of breath. 01/01/2021 Patient is urine cultures are positive for gram-negative bacilli. Patient's hemoglobin 7.7 no more GI bleed clinically at this time. looks bit better today although still complaining of odynophagia. Patient had a left foot CT which showed abscess or osteomyelitis and Charcot-type arthropathy. Patient the will undergo incision and drainage and debridement by vascular surgery. Patient is presently on Unasyn, daptomycin and flucanazole. Constitutional: Denied any fatigue denied any fever. Cardio vascular: denied any chest pain, palpitations Gastrointestinal denied any nausea vomiting Pulmonary: Denied any shortness of breath cough Neurologic denied any new focal deficits All inpatient medications were reviewed and appropriate changes in these medications as dictated in the interval history and assessment and plan. Objective - Vital Signs Vital signs: Vital Signs Temp 97.7 F 01/01/21 11:15 Pulse 89 01/01/21 11:15 Resp 18 01/01/21 11:15 BP 130/63 01/01/21 11:15 Pulse Ox 92 L 01/01/21 11:15 Intake & Output 12/31/20 01/01/21 01/01/21 18:59 06:59 18:59 Intake Total 310 310 Output Total 1899 2049 650 Balance -8520 -9560 -650 Weight 143.5 kg Intake: Blood Product 310 310 Rc As-1 Unit 310 [id number] Rc Pheresis As-3 Unit 0 310 [id number] Output: Urine 1899 2049 650 Other: Voiding Method Indwelling Catheter Indwelling Catheter # Bowel Movements 1 - Exam PHYSICAL EXAMINATION: GENERAL: The patient is alert and oriented x3, not in any acute distress. Obese , unkempt HEENT: Pupils are round and equally reacting to light. EOMI. No scleral icterus. No conjunctival pallor. Normocephalic, atraumatic. No pharyngeal erythema. No thyromegaly. Oral thrush CARDIOVASCULAR: S1 and S2 present. No murmurs, rubs, or gallops. PULMONARY: Chest is clear to auscultation, no wheezing or crackles. ABDOMEN: Soft, nontender, nondistended, normoactive bowel sounds. No palpable organomegaly. MUSCULOSKELETAL: No joint swelling or deformity. EXTREMITIES: No cyanosis, clubbing, extensive bilateral pedal edema with multiple ulcerations with fall smelling discharge NEUROLOGICAL: Gross neurological examination did not reveal any focal deficits. SKIN: Candidial intertrigo - Labs CBC & Chem 7: 01/01/21 06:46 01/01/21 06:46 Labs: Abnormal Lab Results - Last 24 Hours (Table) 12/30/20 12/31/20 12/31/20 Range/Units 22:00 14:33 16:41 WBC (3.8-10.6) k/uL RBC (3.80-5.40) m/uL Hgb (11.4-16.0) gm/dL Hct (34.0-46.0) % MCHC (31.0-37.0) g/dL RDW (11.5-15.5) % Neutrophils # (1.3-7.7) k/uL Potassium 5.8 H (3.5-5.1) mmol/L Chloride (98-107) mmol/L Carbon Dioxide (22-30) mmol/L BUN (7-17) mg/dL Creatinine (0.52-1.04) mg/dL Glucose (74-99) mg/dL POC Glucose (mg/dL) 158 H (75-99) mg/dL Alkaline Phosphatase (38-126) U/L Albumin (3.5-5.0) g/dL Crossmatch See Detail 12/31/20 01/01/21 01/01/21 Range/Units :21 06:07 06:46 WBC 16.4 H (3.8-10.6) k/uL RBC 2.99 L (3.80-5.40) m/uL Hgb 7.7 L (11.4-16.0) gm/dL Hct 25.2 L (34.0-46.0) % MCHC 30.7 L (31.0-37.0) g/dL RDW 19.5 H (11.5-15.5) % Neutrophils # 13.6 H (1.3-7.7) k/uL Potassium (3.5-5.1) mmol/L Chloride (98-107) mmol/L Carbon Dioxide (22-30) mmol/L BUN (7-17) mg/dL Creatinine (0.52-1.04) mg/dL Glucose (74-99) mg/dL POC Glucose (mg/dL) 201 H 190 H (75-99) mg/dL Alkaline Phosphatase (38-126) U/L Albumin (3.5-5.0) g/dL Crossmatch 01/01/21 01/01/21 Range/Units 06:46 11:53 WBC (3.8-10.6) k/uL RBC (3.80-5.40) m/uL Hgb (11.4-16.0) gm/dL Hct (34.0-46.0) % MCHC (31.0-37.0) g/dL RDW (11.5-15.5) % Neutrophils # (1.3-7.7) k/uL Potassium 5.2 H (3.5-5.1) mmol/L Chloride 114 H (98-107) mmol/L Carbon Dioxide 16 L (22-30) mmol/L BUN 63 H (7-17) mg/dL Creatinine 1.70 H (0.52-1.04) mg/dL Glucose 174 H (74-99) mg/dL POC Glucose (mg/dL) 238 H (75-99) mg/dL Alkaline Phosphatase 214 H (38-126) U/L Albumin 2.5 L (3.5-5.0) g/dL Crossmatch Microbiology - Last 24 Hours (Table) 12/31/20 08:09 Urine Culture - Preliminary Urine,Voided Gram Neg Bacilli 12/30/20 22:20 Blood Culture - Preliminary Blood No Growth after 24 hours 12/30/20 22:05 Blood Culture - Preliminary Blood No Growth after 24 hours Assessment and Plan Plan: Severe anemia with recent blood loss presently not actively bleeding: Patient the will receive blood transfusion patient's hemoglobin is presently 7.00 total of 3 units of PRBC transfusion. Gastroenterology will evaluate the patient -Congestive heart failure chronic discharge dysfunction with acute exacerbation patient will be continued on IV Lasix patient has highly elevated BNP bilateral pedal edema elevated JVD as well as chest x-ray findings of her congestive heart failure -Hyperkalemia secondary to losartan and acute renal failure, losartan is being held hypokalemia improved -Acute renal failure secondary to prerenal azotemia from a congestive heart failure improving with Lasix losartan will be held -Bilateral lower extremity edema with chronic venous stasis and chronic venous stasis ulcerations: Patient will be started on Unasyn, vancomycin. Wound Care was consulted infectious disease will be consulted. Wound culture and blood cultures were obtained. -Leukocytosis secondary to extensive wounds and bilateral lower extremity improving Candidal intertrigo topical nystatin powder -Possible candidal esophagitis for which patient was started on IV flucanazole -Type 2 diabetes mellitus -Hypertension -Depression -Morbid obesity - DVT prophylaxis with subcutaneous heparin
[2021-01-01] MEDS ORDERED: IV FLUID CONTINUATION 1,000 ML IV ONE (15:41)
[2021-01-01 15:53] LABS: Glucose,Whole Blood 226 mg/dL (75-99)
[2021-01-01 16:07] LABS: Ferritin 140.6 ng/mL (10.0-291.0)
[2021-01-01 16:37] LABS: % Iron Saturation 8.65 (12.00-45.00)
[2021-01-01] MEDS ORDERED: MIDAZOLAM 2 MG/2 ML VIAL ONE (16:40)
[2021-01-01] MEDS ORDERED: KETAMINE 10 MG/ML 20 ML VIAL ONE (16:40)
[2021-01-01] MEDS ORDERED: fentaNYL (PF) 50 MCG/ML 2 ML AMP ONE (16:40)
[2021-01-01] MEDS ORDERED: LIDOCAINE 1% INJ 10MG/ML (20 ML MDV) SQ ONE ×2 (16:56)
[2021-01-01] MEDS ORDERED: LABETALOL SYRINGE 5 MG/ML IVP ONE (17:35)
[2021-01-01] MEDS ORDERED: HYDROmorphone 0.5 MG/0.5 ML SYRINGE IVP ONE ×2 (17:50→18:00)
--- NOTE | 2021-01-01 17:59 | CONS ---
CONSULTATION DATE OF DICTATION: 01/01/2021 REASON FOR CONSULTATION: Symptomatic anemia with a hemoglobin of 5.6 g/dL and GI bleed. HISTORY OF PRESENT ILLNESS: The patient is a 56-year-old pleasant white female who was transferred from [facility] for severe symptomatic anemia and hemoglobin of 5.6 g/dL. She received 2 units of PRBC transfusion and hemoglobin went up to 7.7 g/dL. The patient has been having some intermittent dark-colored stools as well as rectal bleeding on and off for the last one week's duration. The patient has a longstanding history of diabetes mellitus and she also presented with a left foot ulceration and she is scheduled to have an I and D done later today. She reports no abdominal pain. No nausea, no vomiting. She has been taking Motrin for the last 2 weeks because of left foot pain and foot abscess. She denies any prior history of peptic ulcer disease. PAST MEDICAL HISTORY: Significant for longstanding history of diabetes mellitus, morbid obesity, hypertension, hyperlipidemia, bilateral peripheral neuropathy, gastroesophageal reflux disease and chronic venostasis with severe dermatitis involving both lower extremities. PAST SURGICAL HISTORY: , cholecystectomy, hernia repair, hysterectomy. MEDICATIONS: Medications at home include Abilify, Cymbalta, Pravachol, Zetia, Glucophage, Zantac, Zyloprim, Lasix, gabapentin, Motrin, Z-Brenden and Zofran. ALLERGIES: KEFLEX. SOCIAL HISTORY: Former smoker. No alcohol use. FAMILY HISTORY: Mother has coronary artery disease and MA and father had some kind of cancer. REVIEW OF SYSTEMS: CARDIOPULMONARY: No chest pain or shortness of breath. GENITOURINARY: No dysuria or hematuria. MUSCULOSKELETAL: Severe foot pain. NEUROLOGY: Peripheral neuropathy. ENT/VISION: Unremarkable. CONSTITUTIONAL: No recent weight loss. No fever, chills, night sweats. ENDOCRINE: Diabetes mellitus of 30 years' duration. HEMATOLOGY: Severe symptomatic anemia as described above. PHYSICAL EXAMINATION: On physical examination , she appears comfortable. Vital signs are stable. Blood pressure is 130/63, pulse rate 89, temperature 97.7. HEENT examination unremarkable. Conjunctivae pink. Sclerae anicteric. Oral cavity no lesions. NECK: No JVD or lymph node enlargement. CHEST: Clear to auscultation. HEART: Regular rate and rhythm. ABDOMEN: Soft. Bowel sounds are positive. No organomegaly. Abdomen was extremely obese. EXTREMITIES: Severe dermatitis with hyperkeratosis of both lower extremities. There was some purulent material in the left foot area. LABS: Labs done at the time of admission to the hospital: WBC was 5.7 and today it is 7.7 g/dL. WBC 16.4, hemoglobin . BUN is 66, creatinine 1.90. AST, ALT normal. Alkaline phosphatase is 226. IMPRESSION: 1. Severe symptomatic anemia with a hemoglobin of 5.6 requiring 2 units of PRBC transfusion. Currently hemoglobin is 7.7 g/dL. 2. Gastrointestinal bleed with dark-colored stools and bright red blood per rectum for the last one week. Rule out upper/colonic source of bleeding. 3. Left foot infection. Patient is scheduled for I and D later today. 4. Longstanding history of diabetes mellitus. 5. History of hypertension and hyperlipidemia. 6. History of diabetes mellitus. RECOMMENDATIONS: 1. Continue with broad-spectrum antibiotics. 2. Will proceed with an upper endoscopy tomorrow, and if negative consider colonoscopy during this hospitalization. 3. Continue with Protonix 40 mg daily and monitor CBC daily. 4. Will follow with you closely. Thank you for this consultation. MMODL / IJN: [id number] /
[2021-01-01 18:02] LABS: Glucose,Whole Blood 233 mg/dL (75-99)
[2021-01-01] MEDS ORDERED: INSULIN ASPART (NovoLOG) 100 UNIT/ML VIAL SQ ONE (18:05)
[2021-01-01] MEDS ORDERED: SODIUM CHLORIDE 0.9% 1,000 ML IV ONE (18:30)
[2021-01-01 20:01] LABS: Glucose,Whole Blood 220 mg/dL (75-99)
[2021-01-01] MEDS: INSULIN ASPART (NovoLOG) 100 UNIT/ML VIAL SQ SCH (20:37)
[2021-01-01] MEDS: ARIPiprazole 5 MG TAB PO SCH (22:17)
[2021-01-01] MEDS: LACTATED RINGERS 1,000 ML IV SCH (23:33)
--- NOTE | 2021-01-02 04:14 | PN ---
PROGRESS NOTE DATE OF SERVICE: 01/01/2021. REASON FOR FOLLOWUP: Left diabetic foot infection with concern for abscess. INTERVAL HISTORY: The patient is afebrile. The patient is breathing comfortably. Denies having any chest pain, shortness of breath, cough, abdominal pain. Pain to the left foot is currently controlled. No vomiting or diarrhea. PHYSICAL EXAMINATION: Blood pressure 136/68 with a pulse of 69, temperature 98.3. She is 96% on 2 L nasal cannula. General description is a middle-aged female lying in bed in no distress. Respiratory system: Unlabored breathing, clear to auscultation anteriorly. HEART: S1, S2. Regular rate and rhythm. ABDOMEN: Soft, no tenderness. Left foot swelling slightly decreased. LABS: White count 16.4, BUN of 63, creatinine 1.70. DIAGNOSTIC IMPRESSION AND PLAN: Patient with left diabetic foot infection, concern for underlying abscess cellulitis on the basis of CT. Vascular surgery evaluated the patient, plan for surgical debridement. Continue with daptomycin and Unasyn and adjust antibiotic further based on culture report. Continue supportive care. MMODL / IJN: [id number] /
[2021-01-02 06:04] LABS: Glucose,Whole Blood 212 mg/dL (75-99)
[2021-01-02] MEDS: INSULIN ASPART (NovoLOG) 100 UNIT/ML VIAL SQ SCH ×4 (06:21→21:08)
[2021-01-02] MEDS: HEPARIN SODIUM,PORCINE/PF 5,000 UNIT/0.5 ML SYRINGE SQ SCH ×3 (08:19→23:12)
[2021-01-02] MEDS: FLUCONAZOLE IN NACL,ISO-OSM 100 MG in SALINE 1 50ML.BAG IVPB SCH (08:19)
[2021-01-02] MEDS: FUROSEMIDE 10 MG/ML 4 ML VIAL IV SCH ×2 (08:19→21:07)
[2021-01-02] MEDS: PANTOPRAZOLE 40 MG/10 ML VIAL IV SCH ×2 (08:19→21:07)
[2021-01-02] MEDS: NON FORMULARY DRUG (Liraglutide [Victoza 2-Pak] 0.6 MG/0.1 ML Pen.Injctr) SQ SCH (08:20)
[2021-01-02] MEDS: GABAPENTIN 100 MG CAP PO SCH ×2 (08:20→21:08)
[2021-01-02] MEDS: NYSTATIN 100,000 UNIT/GM POWD 15 GM TOPICAL SCH ×3 (08:20→21:08)
[2021-01-02] MEDS: DULoxetine HCL 60 MG CAPSULE.DR PO SCH ×2 (08:20→21:07)
[2021-01-02 08:24] LABS: Calcium 8.5 mg/dL (8.4-10.2); Potassium 5.2 mmol/L (3.5-5.1)
[2021-01-02 08:30] LABS: Anisocytosis Slight; HCT 25.5 % (34.0-46.0); HGB 7.4 gm/dL (11.4-16.0); Hypochromasia Marked; MCH 24.9 pg (25.0-35.0); MCHC 29.1 g/dL (31.0-37.0); MCV 85.6 fL (80.0-100.0); Mean Platelet Volume 8.5; Platelet Count 325 k/uL (150-450); Poikilocytosis Moderate; RBC 2.99 m/uL (3.80-5.40); RDW 19.7 % (11.5-15.5); WBC 15.7 k/uL (3.8-10.6)
[2021-01-02] MEDS: AMPICILLIN-SULBACTAM 3 GM in SODIUM CHLORIDE 0.9% 100 ML IVPB SCH ×3 (09:31→23:12)
--- NOTE | 2021-01-02 11:17 | P.PN ---
Subjective Patient is a 55-year-old female answer from [facility] because of the extreme low hemoglobin. And has a hemoglobin enforce after which patient is received monitor transfusion subsequently transferred here. Patient is to 2 more units of transfusion here patient present hemoglobin is 7.0 patient did have blood in the stools which happened a few days ago denied any recent GI bleed. Patient denied any loss stools. Patient does have multiple other issues going on. Patient is mostly bedbound barely can move around patient lives with the her son who takes care of for, patient is complaining of odynophagia does have some oral thrush with blood and bloody discharge in the time. Patient has multiple ulcerations with foul-smelling discharge. Patient was started on vancomycin. Patient does have leukocytosis doesn't have any fever. Patient is also found to have pulmonary edema receiving IV Lasix patient does have bilateral lower limb edema patient had a normal ejection fraction the past. Patient is also receiving Lasix at this time. Patient was hyperkalemic as well patient is also on lisinopril patient baseline creatinine appears to be normal presently 2.03. Patient has significant superficial fungal infection in the skin folds. Patient is also comparing of shortness of breath. 01/01/2021 Patient is urine cultures are positive for gram-negative bacilli. Patient's hemoglobin 7.7 no more GI bleed clinically at this time. looks bit better today although still complaining of odynophagia. Patient had a left foot CT which showed abscess or osteomyelitis and Charcot-type arthropathy. Patient the will undergo incision and drainage and debridement by vascular surgery. Patient is presently on Unasyn, daptomycin and flucanazole. 01/02/2021 Patient's right pupil is constricted and not reacting left pupil is reacting to light. We'll obtain CAT scan of the head. Patient blood pressure is low normal patient is still having good urine output still has some swelling of the legs with significantly improved compared to yesterday DOWN THE LASIX TO TWICE A DAY FROM 3 TIMES A DAY DID PATIENT WILL UNDERGO UPPER GI ENDOSCOPY TODAY. Constitutional: Denied any fatigue denied any fever. Cardio vascular: denied any chest pain, palpitations Gastrointestinal denied any nausea vomiting Pulmonary: Denied any shortness of breath cough Neurologic denied any new focal deficits All inpatient medications were reviewed and appropriate changes in these medications as dictated in the interval history and assessment and plan. Objective - Vital Signs Vital signs: Vital Signs Temp 98 F 01/02/21 08:00 Pulse 80 01/02/21 08:00 Resp 16 01/02/21 08:00 BP 91/60 01/02/21 08:00 Pulse Ox 98 01/02/21 08:00 Intake & Output 01/01/21 01/02/21 01/02/21 18:59 06:59 18:59 Intake Total 450 Output Total 777 350 Balance -327 -350 Weight 110.5 kg Intake: IV 450 Output: Urine 775 350 Estimated Blood Loss 2 Other: Voiding Method Indwelling Catheter Indwelling Catheter Indwelling Catheter - Exam PHYSICAL EXAMINATION: GENERAL: The patient is alert and oriented x3, not in any acute distress. Obese , unkempt HEENT: Pupils are round and equally reacting to light. EOMI. No scleral icterus. No conjunctival pallor. Normocephalic, atraumatic. No pharyngeal erythema. No thyromegaly. Oral thrush CARDIOVASCULAR: S1 and S2 present. No murmurs, rubs, or gallops. PULMONARY: Chest is clear to auscultation, no wheezing or crackles. ABDOMEN: Soft, nontender, nondistended, normoactive bowel sounds. No palpable organomegaly. MUSCULOSKELETAL: No joint swelling or deformity. EXTREMITIES: No cyanosis, clubbing, extensive bilateral pedal edema with mul tiple ulcerations with fall smelling discharge NEUROLOGICAL: Gross neurological examination did not reveal any focal deficits. SKIN: Candidial intertrigo - Labs CBC & Chem 7: 01/02/21 06:57 01/02/21 06:57 Labs: Abnormal Lab Results - Last 24 Hours (Table) 01/01/21 01/01/21 01/01/21 Range/Units 06:46 11:53 15:50 WBC (3.8-10.6) k/uL RBC (3.80-5.40) m/uL Hgb (11.4-16.0) gm/dL Hct (34.0-46.0) % MCH (25.0-35.0) pg MCHC (31.0-37.0) g/dL RDW (11.5-15.5) % Potassium (3.5-5.1) mmol/L Chloride (98-107) mmol/L Carbon Dioxide (22-30) mmol/L BUN (7-17) mg/dL Creatinine (0.52-1.04) mg/dL Glucose (74-99) mg/dL POC Glucose (mg/dL) 238 H 226 H (75-99) mg/dL Iron 18 L (50-170) ug/dL TIBC 208 L (228-460) ug/dL % Saturation 8.65 L (12.00-45.00) 01/01/21 01/01/21 01/02/21 Range/Units 18:00 19:59 06:02 WBC (3.8-10.6) k/uL RBC (3.80-5.40) m/uL Hgb (11.4-16.0) gm/dL Hct (34.0-46.0) % MCH (25.0-35.0) pg MCHC (31.0-37.0) g/dL RDW (11.5-15.5) % Potassium (3.5-5.1) mmol/L Chloride (98-107) mmol/L Carbon Dioxide (22-30) mmol/L BUN (7-17) mg/dL Creatinine (0.52-1.04) mg/dL Glucose (74-99) mg/dL POC Glucose (mg/dL) 233 H 220 H 212 H (75-99) mg/dL Iron (50-170) ug/dL TIBC (228-460) ug/dL % Saturation (12.00-45.00) 01/02/21 01/02/21 Range/Units 06:57 06:57 WBC 15.7 H (3.8-10.6) k/uL RBC 2.99 L (3.80-5.40) m/uL Hgb 7.4 L (11.4-16.0) gm/dL Hct 25.5 L (34.0-46.0) % MCH 24.9 L (25.0-35.0) pg MCHC 29.1 L (31.0-37.0) g/dL RDW 19.7 H (11.5-15.5) % Potassium 5.2 H (3.5-5.1) mmol/L Chloride 116 H (98-107) mmol/L Carbon Dioxide 16 L (22-30) mmol/L BUN 66 H (7-17) mg/dL Creatinine 1.61 H (0.52-1.04) mg/dL Glucose 187 H (74-99) mg/dL POC Glucose (mg/dL) (75-99) mg/dL Iron (50-170) ug/dL TIBC (228-460) ug/dL % Saturation (12.00-45.00) Microbiology - Last 24 Hours (Table) 12/31/20 08:09 Urine Culture - Final Urine,Voided Escherichia coli 01/01/21 17:02 Gram Stain - Preliminary Foot - Left Tissue Culture - Preliminary 01/01/21 17:03 Gram Stain - Preliminary Foot - Left Wound Culture - Preliminary 12/30/20 22:20 Blood Culture - Preliminary Blood No Growth after 48 hours 12/30/20 22:05 Blood Culture - Preliminary Blood No Growth after 48 hours 01/01/21 17:03 Anaerobic Culture - Preliminary Foot - Left 01/01/21 17:02 Anaerobic Culture - Preliminary Foot - Left Assessment and Plan Plan: Severe anemia with recent blood loss presently not actively bleeding: Patient the will receive blood transfusion patient's hemoglobin is presently 7.00 total of 3 units of PRBC transfusion. Gastroenterology evaluted patient will undergo endoscopy. -Congestive heart failure chronic diastolic dysfunction with acute exacerbation patient will be continued on IV Lasix patient has highly elevated BNP bilateral pedal edema elevated JVD as well as chest x-ray findings of her congestive heart failure -Hyperkalemia secondary to losartan and acute renal failure, losartan is being held hypokalemia improved -Acute renal failure secondary to prerenal azotemia from a congestive heart failure improving with Lasix losartan will be held -Bilateral lower extremity edema with chronic venous stasis and chronic venous stasis ulcerations: Patient will be started on Unasyn, daptomycin. Wound Care was consulted infectious disease will be consulted. Wound culture and blood cultures were obtained. E. coli in the urine -Leukocytosis secondary to extensive wounds and bilateral lower extremity improving Candidal intertrigo topical nystatin powder -Possible candidal esophagitis for which patient was started on IV flucanazole -Type 2 diabetes mellitus -Hypertension -Depression -Morbid obesity - DVT prophylaxis with subcutaneous heparin
[2021-01-02 12:00] LABS: Glucose,Whole Blood 171 mg/dL (75-99)
[2021-01-02] MEDS ORDERED: IV FLUID CONTINUATION 1,000 ML IV ONE (12:30)
--- NOTE | 2021-01-02 12:45 | PN ---
PROGRESS NOTE DATE OF SERVICE: 01/02/2021. REASON FOR FOLLOWUP: Left diabetic foot infection. INTERVAL HISTORY: The patient is currently afebrile. The patient is status post surgical debridement of the left foot wound by Vascular Surgery. Culture has been obtained, currently pending. Patient denies having any chest pain, shortness of breath, cough. No abdominal pain or any diarrhea. PHYSICAL EXAMINATION: Her blood pressure is 91/60 with a pulse of 80, temperature of 98. She is 98% on 2 L nasal cannula. General description is a middle-aged female lying in bed in no distress. RESPIRATORY SYSTEM: Unlabored breathing, clear to auscultation anteriorly. HEART: S1, S2. Regular rate and rhythm. ABDOMEN: Soft, no tenderness. Left foot is currently dressed up. No obvious drainage on the dressing. LABS: Hemoglobin 7.4, white count 15.7, BUN of 66, creatinine 1.61. DIAGNOSTIC IMPRESSION AND PLAN: Patient with left diabetic foot infection with underlying abscess status post drainage. Culture will be followed. Patient is covered with Unasyn and daptomycin adjusting antibiotic further based on culture report. Continue supportive care. MMODL / IJN: [id number] /
[2021-01-02] MEDS: LACTATED RINGERS 1,000 ML IV SCH (12:48)
--- NOTE | 2021-01-02 13:06 | CT ---
EXAMINATION TYPE: CT brain wo con DATE OF EXAM: 01/02/2021 COMPARISON: 05/14/2020 HISTORY: Intracranial bleed. CT DLP: 1151.[address] of the brain was performed. The ventricles, basal cisterns and sulci overlying the cerebral convexities demonstrate mild enlargem ent. There is no evidence for intracranial hemorrhage or sulcal effacement. There is decreased attenuation about the periventricular white matter and deep white matter of both c erebral hemispheres, compatible with chronic small vessel ischemia. Differential diagnosis does inclu de demyelination. No mass effects are seen.No midline shift. Osseous calvarium is intact. If symptoms persist consider MRI. IMPRESSION: 1. Age related atrophic and chronic small vessel ischemic change without acute intracranial process s een at this time.
[2021-01-02] MEDS ORDERED: MIDAZOLAM 2 MG/2 ML VIAL ONE (14:58)
[2021-01-02] MEDS ORDERED: KETAMINE 10 MG/ML 20 ML VIAL ONE (14:58)
--- NOTE | 2021-01-02 15:13 | P.PCN ---
Date of Procedure: 01/02/21 Procedure(s) Performed: BRIEF HISTORY: Patient is a 56-year-old, pleasant, white female scheduled for an upper endoscopy as a part of evaluation of anemia and intermittent rectal symptoms.. PROCEDURE PERFORMED: Esophagogastroduodenoscopy. With biopsy PREOPERATIVE DIAGNOSIS: Anemia and intermittent dark. IV sedation per anesthesia. PROCEDURE: After informed consent was obtained, the patient was brought into the endoscopy unit. IV sedation was administered by Anesthesia under continuous monitoring. Initially the Olympus GIF-140 video endoscope was inserted into the mouth. Esophagus intubated without any difficulty. It was gradually advanced into the stomach and duodenum and carefully examined. The bulb and the second part of the duodenum appeared normal. Biopsies were done from the duodenum to rule out celiac disease. The scope at this time was withdrawn to the stomach, adequately insufflated with air, and upon careful examination, mucosa of the antrum, body, cardia and the fundus appeared normal. The scope was then withdrawn into the esophagus. The GE junction was located at 39 cm from the incisors. The esophagus appeared normal. There were no erosions or ulcerations seen and the patient tolerated the procedure well. IMPRESSION: Normal-appearing endoscopy with no evidence of esophagitis or peptic ulcer disease. Recommendations: Findings of this examination were discussed discussed with the patient . She was advised to follow with the biopsy results. Recommend a colonoscopy but he is not sure if she would like to have a redundant this time. Will monitor her clinical course and consider an colonoscopy either as an inpatient and outpatient basis
[2021-01-02] MEDS ORDERED: ONDANSETRON 4 MG/2 ML VIAL IVP ONE (15:32)
[2021-01-02] MEDS ORDERED: LABETALOL SYRINGE 5 MG/ML IVP ONE (15:36)
--- NOTE | 2021-01-02 15:55 | PN ---
PROGRESS NOTE This patient had a left foot I and D and wound debridement yesterday. Today we have changed the dressing. Some drainage noted. Wound was irrigated with saline and placed Aquacel Silver rope. Plan is to change the dressing every 48 hours. The patient may be needing V.A.C. therapy. Patient is under the care of Infectious Disease for IV antibiotic. Continue. MASSIMO / NINOSKAN: [id number] /
[2021-01-02 17:13] LABS: Glucose,Whole Blood 201 mg/dL (75-99)
--- NOTE | 2021-01-02 18:18 | OP ---
OPERATIVE REPORT PREOPERATIVE DIAGNOSIS: Infected wound, plantar aspect of the left foot, with drainage of pus and foul odor. POSTOPERATIVE DIAGNOSIS: Infected wound, plantar aspect of the left foot, with drainage of pus and foul odor. OPERATION: Incision and drainage of the abscess, left foot, and wound debridement under local IV sedation. DESCRIPTION OF PROCEDURE: This patient was brought to the operating room. Left foot was prepped and draped in sterile manner. This patient had an open wound on the plantar aspect of the left foot with drainage of pus. CT showed patient had abscess and Charcot foot. Lidocaine 1% was infiltrated on the plantar aspect. A transverse incision was made on the plantar aspect of the foot, deepened through the skin and fat. By opening the wound there was quite a bit of pus drainage noted. After that, using the knife, we extended the incision and removed all the devitalized tissue. There was some fat necrosis noted which was excised by the knife, and we found there was a pocket of pus which was also drained. All the devitalized tissue was sent for culture and sensitivity. Bleeding points were controlled. Wound was copiously irrigated with saline. After that, a we used Aquacel Silver rope and dressing was applied and the patient was transferred back to her room in satisfactory condition. MMODL / IJN: [id number] /
[2021-01-02 20:02] LABS: Glucose,Whole Blood 242 mg/dL (75-99)
[2021-01-02] MEDS: ARIPiprazole 5 MG TAB PO SCH (21:08)
[2021-01-03 06:24] LABS: Glucose,Whole Blood 225 mg/dL (75-99)
[2021-01-03] MEDS: INSULIN ASPART (NovoLOG) 100 UNIT/ML VIAL SQ SCH ×4 (06:42→20:59)
[2021-01-03 06:56] LABS: Anisocytosis Moderate; HGB 7.1 gm/dL (11.4-16.0); Hypochromasia Marked; MCH 25.3 pg (25.0-35.0); MCHC 29.7 g/dL (31.0-37.0); Microcytosis Slight; Platelet Count 289 k/uL (150-450); Poikilocytosis Moderate; RBC 2.82 m/uL (3.80-5.40); RDW 20.1 % (11.5-15.5); WBC 14.5 k/uL (3.8-10.6)
[2021-01-03 07:19] LABS: Calcium 8.4 mg/dL (8.4-10.2); Potassium 4.4 mmol/L (3.5-5.1)
[2021-01-03] MEDS: GABAPENTIN 100 MG CAP PO SCH ×2 (10:09→20:59)
[2021-01-03] MEDS: NON FORMULARY DRUG (Liraglutide [Victoza 2-Pak] 0.6 MG/0.1 ML Pen.Injctr) SQ SCH (10:09)
[2021-01-03] MEDS: HEPARIN SODIUM,PORCINE/PF 5,000 UNIT/0.5 ML SYRINGE SQ SCH ×2 (10:10→16:47)
[2021-01-03] MEDS: NYSTATIN 100,000 UNIT/GM POWD 15 GM TOPICAL SCH ×3 (10:10→21:00)
[2021-01-03] MEDS: DULoxetine HCL 60 MG CAPSULE.DR PO SCH ×2 (10:10→20:59)
[2021-01-03] MEDS: AMPICILLIN-SULBACTAM 3 GM in SODIUM CHLORIDE 0.9% 100 ML IVPB SCH ×2 (10:10→16:47)
[2021-01-03] MEDS: PANTOPRAZOLE 40 MG/10 ML VIAL IV SCH ×2 (10:48→20:59)
[2021-01-03] MEDS: FUROSEMIDE 10 MG/ML 4 ML VIAL IV SCH ×2 (10:48→20:59)
--- NOTE | 2021-01-03 11:18 | PN ---
PROGRESS NOTE This patient was seen today. She had a chronic wound left foot with abscess formation. The patient had extensive debridement done, we changed the dressing yesterday put Aquacel Silver rope. The patient is under care of Infectious Disease with IV antibiotic. PLAN: Continue with local wound care. Change the dressing tomorrow with Aquacel Silver rope. MMODL / IJN: [id number] /
[2021-01-03 11:54] LABS: Glucose,Whole Blood 206 mg/dL (75-99)
[2021-01-03] MEDS: FLUCONAZOLE IN NACL,ISO-OSM 100 MG in SALINE 1 50ML.BAG IVPB SCH (13:28)
--- NOTE | 2021-01-03 16:10 | P.PN ---
Subjective Progress Note Date: 01/03/21 Principal diagnosis: Anemia, melena There is a 56-year-old female who is scheduled for an upper endoscopy yesterday as part of evaluation for anemia and intermittent dark stools. She has multiple medical comorbidities including open ulcers, for which he underwent debridement. Yesterday she underwent an upper endoscopy which was normal appearing with no evidence of esophagitis or peptic ulcer disease. No active bleeding. Today she is seen and examined sitting up at the bedside, she is very lethargic. No reported bowel movement. Hemoglobin dropped from 7.4-7.1 today. Discuss with patient to proceed with colonoscopy, however at this time she states she is not willing to. She denies any abdominal pain, nausea, or vomiting. No signs of GI blood loss. Objective - Vital Signs Vital signs: Vital Signs Temp 98.1 F 01/02/21 20:00 Pulse 96 01/03/21 04:00 Resp 18 01/03/21 04:00 BP 151/69 01/03/21 04:00 Pulse Ox 95 01/03/21 04:00 Intake & Output 01/02/21 01/03/21 01/03/21 18:59 06:59 18:59 Intake Total 586 Output Total 550 1000 Balance 36 -1000 Weight 145.5 kg 118 kg Intake: IV 200 Intake, IV Titration 150 Amount Ampicillin-Sulbactam 3 gm 100 In Sodium Chloride 0.9% 100 ml @ 200 mls/hr IVPB Q8HR KASANDRA Rx#:[id number] Fluconazole in NaCl,Iso- 50 Osm 100 mg In Saline 1 50ml.bag @ 50 mls/hr IVPB DAILY [facility] Rx#:[id number] Oral 236 Output: Urine 550 1000 Other: Voiding Method Indwelling Catheter Indwelling Catheter - Exam General appearance: The patient is alert, oriented, very drowsy, appears in no acute distress. Morbidly obese HET: Head is normocephalic and atraumatic. Conjunctiva pink. Sclera anicteric. Neck: Supple without lymphadenopathy. Abdomen: Soft, morbidly obese, nontender, nondistended with bowel sounds. No guarding or rigidity. Extremities: Normal skin color and turgor. Bilateral upper and lower extremity edema. Skin: No rashes, no jaundice Neurological: No focal deficits. Alert and oriented 3. - Labs CBC & Chem 7: 01/03/21 06:22 01/03/21 06:22 Labs: Abnormal Lab Results - Last 24 Hours (Table) 01/02/21 01/02/21 01/02/21 Range/Units 11:54 17:03 19:58 WBC (3.8-10.6) k/uL RBC (3.80-5.40) m/uL Hgb (11.4-16.0) gm/dL Hct (34.0-46.0) % MCHC (31.0-37.0) g/dL RDW (11.5-15.5) % Chloride (98-107) mmol/L Carbon Dioxide (22-30) mmol/L BUN (7-17) mg/dL Creatinine (0.52-1.04) mg/dL Glucose (74-99) mg/dL POC Glucose (mg/dL) 171 H 201 H 242 H (75-99) mg/dL 01/03/21 01/03/21 01/03/21 Range/Units 06:19 06:22 06:22 WBC 14.5 H (3.8-10.6) k/uL RBC 2.82 L (3.80-5.40) m/uL Hgb 7.1 L (11.4-16.0) gm/dL Hct 24.0 L (34.0-46.0) % MCHC 29.7 L (31.0-37.0) g/dL RDW 20.1 H (11.5-15.5) % Chloride 117 H (98-107) mmol/L Carbon Dioxide 17 L (22-30) mmol/L BUN 64 H (7-17) mg/dL Creatinine 1.64 H (0.52-1.04) mg/dL Glucose 206 H (74-99) mg/dL POC Glucose (mg/dL) 225 H (75-99) mg/dL Microbiology - Last 24 Hours (Table) 12/30/20 22:20 Blood Culture - Preliminary Blood No Growth after 72 hours 12/30/20 22:05 Blood Culture - Preliminary Blood No Growth after 72 hours 01/01/21 17:02 Gram Stain - Preliminary Foot - Left Tissue Culture - Preliminary Beta Hemolytic Strep Group C Presumptive Staph aureus 01/01/21 17:03 Gram Stain - Preliminary Foot - Left Wound Culture - Preliminary Beta Hemolytic Strep Group C Presumptive Staph aureus 12/31/20 08:09 Urine Culture - Final Urine,Voided Escherichia coli Assessment and Plan (1) Normocytic anemia Narrative/Plan: 48-year-old morbidly obese female with multiple medical comorbidities who presented to the hospital with weakness, multiple ulcers which required debridement, with a hemoglobin of 5.6 and reported dark-colored and bright red blood per rectum for the last week, requiring 2 units of PRBC transfusion. She underwent an upper endoscopy yesterday which showed normal-appearing mucosa, no evidence of esophagitis, gastritis, peptic ulcer disease or neoplasia. No active bleeding. Current Visit: Yes Status: Acute Code(s): D64.9 - ANEMIA, UNSPECIFIED SNOMED Code(s): 996499010 (2) Nonhealing ulcer of left lower extremity limited to breakdown of skin Current Visit: Yes Status: Acute Code(s): L97.921 - NON-PRS CHR ULC UNSP PRT OF L LOW LEG LIMITED TO BRKDWN SKIN SNOMED Code(s): 45362895 (3) Weakness Current Visit: Yes Status: Acute Code(s): R53.1 - WEAKNESS SNOMED Code(s): 33156451 (4) Morbid obesity due to excess calories Current Visit: No Status: Acute Code(s): E66.01 - MORBID (SEVERE) OBESITY DUE TO EXCESS CALORIES SNOMED Code(s): 717527127 (5) Diabetes mellitus Current Visit: Yes Status: Acute Code(s): E11.9 - TYPE 2 DIABETES MELLITUS WITHOUT COMPLICATIONS SNOMED Code(s): 89100775 Plan: 1. Diabetes tolerated 2. Continue symptomatic and supportive care 3. Patient is status post EGD the recommend colonoscopy for further evaluation. Patient is refusing at this time stating that she does not believe she could tolerate the prep. 4. Daily CBC 5. Continue to monitor for signs and symptoms of GI bleed 6. Continue medical management per multiple medical comorbidities 7. Will reevaluate the patient tomorrow, further discuss possibility of colonoscopy Thank you for this consultation, we will continue to follow Dr. Jose Gramajo I agree with the dictator's note, documented as a scribe by Jill Lazo.
--- NOTE | 2021-01-03 16:28 | PN ---
PROGRESS NOTE DATE OF SERVICE: 01/03/2021 REASON FOR FOLLOWUP: Left diabetic foot infection. INTERVAL HISTORY: The patient is currently afebrile. Patient is breathing comfortably. The patient denies having any chest pain or shortness of breath or cough. No abdominal pain. Pain to the left foot is currently controlled. PHYSICAL EXAMINATION: Blood pressure 134/69 with a pulse of 95, temperature 97.5. She is 97% on 2 L nasal cannula. General description is a middle-aged female lying in bed in no distress. RESPIRATORY SYSTEM: Unlabored breathing, clear to auscultation anteriorly. HEART: S1, S2. Regular rate and rhythm. ABDOMEN: Soft, no tenderness. Left foot is currently dressed up. No obvious drainage on the dressing. LABS: Hemoglobin 7.1, white count 14.5, BUN of 64, creatinine 1.64. Left foot is showing a presumptive Staph aureus and beta Strep. DIAGNOSTIC IMPRESSION AND PLAN: Patient with diabetic foot infection with underlying abscess status post drainage. Culture with Staph aureus. Sensitivity to Staph aureus is pending. Patient is covered with Unasyn and daptomycin adjusting antibiotic further based on culture report. Continue supportive care. MMODL / IJN: [id number] / MTDD
[2021-01-03 16:58] LABS: Glucose,Whole Blood 195 mg/dL (75-99)
[2021-01-03 20:56] LABS: Glucose,Whole Blood 172 mg/dL (75-99)
[2021-01-03] MEDS: LACTATED RINGERS 1,000 ML IV SCH (20:59)
[2021-01-03] MEDS: ARIPiprazole 5 MG TAB PO SCH (20:59)
[2021-01-04] MEDS: AMPICILLIN-SULBACTAM 3 GM in SODIUM CHLORIDE 0.9% 100 ML IVPB SCH ×3 (00:07→17:11)
[2021-01-04] MEDS: HEPARIN SODIUM,PORCINE/PF 5,000 UNIT/0.5 ML SYRINGE SQ SCH ×3 (00:07→17:11)
[2021-01-04 06:17] LABS: Glucose,Whole Blood 172 mg/dL (75-99)
[2021-01-04] MEDS: INSULIN ASPART (NovoLOG) 100 UNIT/ML VIAL SQ SCH ×4 (06:25→20:40)
[2021-01-04] MEDS: FUROSEMIDE 10 MG/ML 4 ML VIAL IV SCH ×2 (08:49→20:40)
[2021-01-04] MEDS: PANTOPRAZOLE 40 MG/10 ML VIAL IV SCH (08:49)
[2021-01-04] MEDS: GABAPENTIN 100 MG CAP PO SCH ×2 (08:49→20:39)
[2021-01-04] MEDS: DULoxetine HCL 60 MG CAPSULE.DR PO SCH ×2 (08:50→20:39)
[2021-01-04] MEDS: FLUCONAZOLE IN NACL,ISO-OSM 100 MG in SALINE 1 50ML.BAG IVPB SCH (10:46)
[2021-01-04] MEDS: NYSTATIN 100,000 UNIT/GM POWD 15 GM TOPICAL SCH ×3 (10:48→20:40)
[2021-01-04] MEDS: NON FORMULARY DRUG (Liraglutide [Victoza 2-Pak] 0.6 MG/0.1 ML Pen.Injctr) SQ SCH (10:48)
[2021-01-04 11:09] LABS: Anisocytosis Slight; HCT 26.2 % (34.0-46.0); HGB 7.4 gm/dL (11.4-16.0); Hypochromasia Marked; MCH 24.9 pg (25.0-35.0); MCHC 28.2 g/dL (31.0-37.0); MCV 88.3 fL (80.0-100.0); Mean Platelet Volume 8.6; Platelet Count 250 k/uL (150-450); Poikilocytosis Moderate; RBC 2.96 m/uL (3.80-5.40); RDW 19.9 % (11.5-15.5); WBC 11.9 k/uL (3.8-10.6)
[2021-01-04 12:05] LABS: Glucose,Whole Blood 223 mg/dL (75-99)
--- NOTE | 2021-01-04 13:16 | P.PN ---
Subjective Progress Note Date: 01/03/21 Patient is a 55-year-old female answer from [facility] because of the extreme low hemoglobin. And has a hemoglobin enforce after which patient is received monitor transfusion subsequently transferred here. Patient is to 2 more units of transfusion here patient present hemoglobin is 7.0 patient did have blood in the stools which happened a few days ago denied any recent GI bleed. Patient denied any loss stools. Patient does have multiple other issues going on. Patient is mostly bedbound barely can move around patient lives with the her son who takes care of for, patient is complaining of odynophagia does have some oral thrush with blood and bloody discharge in the time. Patient has multiple ulcerations with foul-smelling discharge. Patient was started on vancomycin. Patient does have leukocytosis doesn't have any fever. Patient is also found to have pulmonary edema receiving IV Lasix patient does have bilateral lower limb edema patient had a normal ejection fraction the past. Patient is also receiving Lasix at this time. Patient was hyperkalemic as well patient is also on lisinopril patient baseline creatinine appears to be normal presently 2.03. Patient has significant superficial fungal infection in the skin folds. Patient is also comparing of shortness of breath. 01/01/2021 Patient is urine cultures are positive for gram-negative bacilli. Patient's hemoglobin 7.7 no more GI bleed clinically at this time. looks bit better today although still complaining of odynophagia. Patient had a left foot CT which showed abscess or osteomyelitis and Charcot-type arthropathy. Patient the will undergo incision and drainage and debridement by vascular surgery. Patient is presently on Unasyn, daptomycin and flucanazole. 01/02/2021 Patient's right pupil is constricted and not reacting left pupil is reacting to light. We'll obtain CAT scan of the head. Patient blood pressure is low normal patient is still having good urine output still has some swelling of the legs with significantly improved compared to yesterday DOWN THE LASIX TO TWICE A DAY FROM 3 TIMES A DAY DID PATIENT WILL UNDERGO UPPER GI ENDOSCOPY TODAY. 01/03/2021 Patient is having an EGD. Wound cultures is showing staph aureus beta hemolytic streptococci and culture showing E. coli. Patient had ostial myelitis and had an extensive debridement of the left foot for abscess. Patient probably will need IV antibiotics Constitutional: Denied any fatigue denied any fever. Cardio vascular: denied any chest pain, palpitations Gastrointestinal denied any nausea vomiting Pulmonary: Denied any shortness of breath cough Neurologic denied any new focal deficits All inpatient medications were reviewed and appropriate changes in these medications as dictated in the interval history and assessment and plan. Objective - Vital Signs Vital signs: Vital Signs Temp 98.1 F 01/04/21 08:00 Pulse 75 01/04/21 12:00 Resp 16 01/04/21 12:00 BP 118/70 01/04/21 12:00 Pulse Ox 97 01/04/21 12:00 Intake & Output 01/03/21 01/04/21 01/04/21 18:59 06:59 18:59 Intake Total 400 200 240 Output Total 400 725 200 Balance 0 -525 40 Weight 109 kg Intake: Intake, IV Titration 20 Amount Lactated Ringers 1,000 ml 20 @ 20 mls/hr IV .Q24H [facility] Rx#:[id number] Oral 400 180 240 Output: Urine 400 725 200 Other: Voiding Method Indwelling Catheter Indwelling Catheter - Exam PHYSICAL EXAMINATION: GENERAL: The patient is alert and oriented x3, not in any acute distress. Obese , unkempt HEENT: Pupils are round and equally reacting to light. EOMI. No scleral icterus. No conjunctival pallor. Normocephalic, atraumatic. No pharyngeal erythema. No thyromegaly. Oral thrush CARDIOVASCULAR: S1 and S2 present. No murmurs, rubs, or gallops. PULMONARY: Chest is clear to auscultation, no wheezing or crackles. ABDOMEN: Soft, nontender, nondistended, normoactive bowel sounds. No palpable organomegaly. MUSCULOSKELETAL: No joint swelling or deformity. EXTREMITIES: No cyanosis, clubbing, extensive bilateral pedal edema with multiple ulcerations with fall smelling discharge NEUROLOGICAL: Gross neurological examination did not reveal any focal deficits. SKIN: Candidial intertrigo - Labs CBC & Chem 7: 01/04/21 10:24 01/03/21 06:22 Labs: Abnormal Lab Results - Last 24 Hours (Table) 01/03/21 01/03/21 01/04/21 Range/Units 16:57 20:38 06:14 WBC (3.8-10.6) k/uL RBC (3.80-5.40) m/uL Hgb (11.4-16.0) gm/dL Hct (34.0-46.0) % MCH (25.0-35.0) pg MCHC (31.0-37.0) g/dL RDW (11.5-15.5) % POC Glucose (mg/dL) 195 H 172 H 172 H (75-99) mg/dL 01/04/21 01/04/21 Range/Units 10:24 12:01 WBC 11.9 H (3.8-10.6) k/uL RBC 2.96 L (3.80-5.40) m/uL Hgb 7.4 L (11.4-16.0) gm/dL Hct 26.2 L (34.0-46.0) % MCH 24.9 L (25.0-35.0) pg MCHC 28.2 L (31.0-37.0) g/dL RDW 19.9 H (11.5-15.5) % POC Glucose (mg/dL) 223 H (75-99) mg/dL Microbiology - Last 24 Hours (Table) 12/30/20 22:20 Blood Culture - Preliminary Blood No Growth after 96 hours 12/30/20 22:05 Blood Culture - Preliminary Blood No Growth after 96 hours 01/01/21 17:02 Anaerobic Culture - Preliminary Foot - Left 01/01/21 17:03 Anaerobic Culture - Preliminary Foot - Left 01/01/21 17:03 Gram Stain - Final Foot - Left Wound Culture - Final Beta Hemolytic Strep Group C Staphylococcus aureus Assessment and Plan Plan: Severe anemia with recent blood loss presently not actively bleeding: Patient the will receive blood transfusion patient's hemoglobin is presently 7.00 total of 3 units of PRBC transfusion. Gastroenterology evaluted patient will undergo endoscopy. -Congestive heart failure chronic diastolic dysfunction with acute exacerbation patient will be continued on IV Lasix patient has highly elevated BNP bilateral pedal edema elevated JVD as well as chest x-ray findings of her congestive heart failure -Hyperkalemia secondary to losartan and acute renal failure, losartan is being held hypokalemia improved -Acute renal failure secondary to prerenal azotemia from a congestive heart failure improving with Lasix losartan will be held -Bilateral lower extremity edema with chronic venous stasis and chronic venous stasis ulcerations: Patient will be started on Unasyn, daptomycin. Wound Care was consulted infectious disease will be consulted. Wound culture and blood cultures were obtained. E. coli in the urine -Leukocytosis secondary to extensive wounds and bilateral lower extremity improving Candidal intertrigo topical nystatin powder -Possible candidal esophagitis for which patient was started on IV flucanazole -Type 2 diabetes mellitus -Hypertension -Depression -Morbid obesity - DVT prophylaxis with subcutaneous heparin
--- NOTE | 2021-01-04 13:21 | P.PN ---
Subjective Patient is a 55-year-old female answer from [facility] because of the extreme low hemoglobin. And has a hemoglobin enforce after which patient is received monitor transfusion subsequently transferred here. Patient is to 2 more units of transfusion here patient present hemoglobin is 7.0 patient did have blood in the stools which happened a few days ago denied any recent GI bleed. Patient denied any loss stools. Patient does have multiple other issues going on. Patient is mostly bedbound barely can move around patient lives with the her son who takes care of for, patient is complaining of odynophagia does have some oral thrush with blood and bloody discharge in the time. Patient has multiple ulcerations with foul-smelling discharge. Patient was started on vancomycin. Patient does have leukocytosis doesn't have any fever. Patient is also found to have pulmonary edema receiving IV Lasix patient does have bilateral lower limb edema patient had a normal ejection fraction the past. Patient is also receiving Lasix at this time. Patient was hyperkalemic as well patient is also on lisinopril patient baseline creatinine appears to be normal presently 2.03. Patient has significant superficial fungal infection in the skin folds. Patient is also comparing of shortness of breath. 01/01/2021 Patient is urine cultures are positive for gram-negative bacilli. Patient's hemoglobin 7.7 no more GI bleed clinically at this time. looks bit better today although still complaining of odynophagia. Patient had a left foot CT which showed abscess or osteomyelitis and Charcot-type arthropathy. Patient the will undergo incision and drainage and debridement by vascular surgery. Patient is presently on Unasyn, daptomycin and flucanazole. 01/02/2021 Patient's right pupil is constricted and not reacting left pupil is reacting to light. We'll obtain CAT scan of the head. Patient blood pressure is low normal patient is still having good urine output still has some swelling of the legs with significantly improved compared to yesterday DOWN THE LASIX TO TWICE A DAY FROM 3 TIMES A DAY DID PATIENT WILL UNDERGO UPPER GI ENDOSCOPY TODAY. 01/03/2021 Patient is having an EGD. Wound cultures is showing staph aureus beta hemolytic streptococci and culture showing E. coli. Patient had ostial myelitis and had an extensive debridement of the left foot for abscess. Patient probably will need IV antibiotics. 01/04/2021 Patient had a an EGD which didn't show any significant abnormality. Patient declined colonoscopy. Patient doesn't have any more GI bleed at this time patient has osteomyelitis, patient will need IV antibiotics and wound care patient had debridement of the left foot for an abscess. Patient is showing MSSA daptomycin was discontinued, patient is only on Unasyn at this time. Patient has streptococci, MSSA. Patient is also being covered for anaerobic bacteria with Unasyn. Case management is working on her placement to subacute rehabitation for wound care and IV antibiotics and physical therapy patient probably can be discharged to subacute rehabilitation rehab if that can be arranged by tomorrow. Constitutional: Denied any fatigue denied any fever. Cardio vascular: denied any chest pain, palpitations Gastrointestinal denied any nausea vomiting Pulmonary: Denied any shortness of breath cough Neurologic denied any new focal deficits All inpatient medications were reviewed and appropriate changes in these medications as dictated in the interval history and assessment and plan. Objective - Vital Signs Vital signs: Vital Signs Temp 98.1 F 01/04/21 08:00 Pulse 75 01/04/21 12:00 Resp 16 01/04/21 12:00 BP 118/70 01/04/21 12:00 Pulse Ox 97 01/04/21 12:00 Intake & Output 01/03/21 01/04/21 01/04/21 18:59 06:59 18:59 Intake Total 400 200 240 Output Total 400 725 200 Balance 0 -525 40 Weight 109 kg Intake: Intake, IV Titration 20 Amount Lactated Ringers 1,000 ml 20 @ 20 mls/hr IV .Q24H [facility] Rx#:[id number] Oral 400 180 240 Output: Urine 400 725 200 Other: Voiding Method Indwelling Catheter Indwelling Catheter - Exam PHYSICAL EXAMINATION: GENERAL: The patient is alert and oriented x3, not in any acute distress. Obese , unkempt HEENT: Pupils are round and equally reacting to light. EOMI. No scleral icterus. No conjunctival pallor. Normocephalic, atraumatic. No pharyngeal erythema. No thyromegaly. Oral thrush CARDIOVASCULAR: S1 and S2 present. No murmurs, rubs, or gallops. PULMONARY: Chest is clear to auscultation, no wheezing or crackles. ABDOMEN: Soft, nontender, nondistended, normoactive bowel sounds. No palpable organomegaly. MUSCULOSKELETAL: No joint swelling or deformity. EXTREMITIES: No cyanosis, clubbing, extensive bilateral pedal edema with multiple ulcerations NEUROLOGICAL: Gross neurological examination did not reveal any focal deficits. SKIN: Candidial intertrigo - Labs CBC & Chem 7: 01/04/21 10:24 01/03/21 06:22 Labs: Abnormal Lab Results - Last 24 Hours (Table) 01/03/21 01/03/21 01/04/21 Range/Units 16:57 20:38 06:14 WBC (3.8-10.6) k/uL RBC (3.80-5.40) m/uL Hgb (11.4-16.0) gm/dL Hct (34.0-46.0) % MCH (25.0-35.0) pg MCHC (31.0-37.0) g/dL RDW (11.5-15.5) % POC Glucose (mg/dL) 195 H 172 H 172 H (75-99) mg/dL 01/04/21 01/04/21 Range/Units 10:24 12:01 WBC 11.9 H (3.8-10.6) k/uL RBC 2.96 L (3.80-5.40) m/uL Hgb 7.4 L (11.4-16.0) gm/dL Hct 26.2 L (34.0-46.0) % MCH 24.9 L (25.0-35.0) pg MCHC 28.2 L (31.0-37.0) g/dL RDW 19.9 H (11.5-15.5) % POC Glucose (mg/dL) 223 H (75-99) mg/dL Microbiology - Last 24 Hours (Table) 12/30/20 22:20 Blood Culture - Preliminary Blood No Growth after 96 hours 12/30/20 22:05 Blood Culture - Preliminary Blood No Growth after 96 hours 01/01/21 17:02 Anaerobic Culture - Preliminary Foot - Left 01/01/21 17:03 Anaerobic Culture - Preliminary Foot - Left 01/01/21 17:03 Gram Stain - Final Foot - Left Wound Culture - Final Beta Hemolytic Strep Group C Staphylococcus aureus Assessment and Plan Plan: Severe anemia with recent blood loss presently not actively bleeding: Patient the will receive blood transfusion patient's hemoglobin is presently 7.00 total of 3 units of PRBC transfusion. Gastroenterology evaluted patient had an upper GI endoscopy which insurance significant abnormality. -Osteomyelitis and an abscess of the left foot multiple ulcerations of both le gs. -Congestive heart failure chronic diastolic dysfunction with acute exacerbation patient will be continued on IV Lasix patient has highly elevated BNP bilateral pedal edema improved patient will be switched to to oral Lasix. -Hyperkalemia secondary to losartan and acute renal failure, losartan is being held. Patient's present potassium is 4.4. -Acute renal failure secondary to prerenal azotemia from a congestive heart failure improving with Lasix losartan will be held and patient may have chronic kidney disease stage III -Bilateral lower extremity edema with chronic venous stasis and chronic venous stasis ulcerations: Patient is on Unasyn, daptomycin. Wound Care and infectious disease lying the patient. Patient has Streptococcus cocci and MSSA in the wounds. -Leukocytosis secondary to extensive wounds and bilateral lower extremity improving Candidal intertrigo topical nystatin powder -Possible candidal esophagitis for which patient was started on IV flucanazole, her dysphagia improved -Type 2 diabetes mellitus -Hypertension -Depression -Morbid obesity - DVT prophylaxis with subcutaneous heparin
--- NOTE | 2021-01-04 15:21 | P.PN ---
Subjective Principal diagnosis: Anemia, melena There is a 56-year-old female who is scheduled for an upper endoscopy yesterday as part of evaluation for anemia and intermittent dark stools. She has multiple medical comorbidities including open ulcers, for which he underwent debridement. She underwent an upper endoscopy which was normal appearing with no evidence of esophagitis or peptic ulcer disease. No active bleeding. Today she is seen and examined sitting up at the bedside, she is very lethargic. No reported bowel movement. Hemoglobin stable at 7.4. Discuss with patient to proceed with colonoscopy, however at this time she still states she is not willing to due to her weakness. She denies any abdominal pain, nausea, or vomiting. No signs of GI blood loss. Objective - Vital Signs Vital signs: Vital Signs Temp 98.1 F 01/04/21 08:00 Pulse 78 01/04/21 08:00 Resp 16 01/04/21 08:00 BP 108/56 01/04/21 08:00 Pulse Ox 100 01/04/21 08:00 Intake & Output 01/03/21 01/04/21 01/04/21 18:59 06:59 18:59 Intake Total 400 200 Output Total 400 725 200 Balance 0 -525 -200 Weight 109 kg Intake: Intake, IV Titration 20 Amount Lactated Ringers 1,000 ml 20 @ 20 mls/hr IV .Q24H [facility] Rx#:[id number] Oral 400 180 Output: Urine 400 725 200 Other: Voiding Method Indwelling Catheter Indwelling Catheter - Exam General appearance: The patient is alert, oriented, very drowsy, appears in no acute distress. Morbidly obese HET: Head is normocephalic and atraumatic. Conjunctiva pink. Sclera anicteric. Neck: Supple without lymphadenopathy. Abdomen: Soft, morbidly obese, nontender, nondistended with bowel sounds. No guarding or rigidity. Extremities: Normal skin color and turgor. Bilateral upper and lower extremity edema. Skin: No rashes, no jaundice Neurological: No focal deficits. Alert and oriented 3. - Labs CBC & Chem 7: 01/04/21 10:24 01/03/21 06:22 Labs: Abnormal Lab Results - Last 24 Hours (Table) 01/03/21 01/03/21 01/03/21 Range/Units 11:53 16:57 20:38 POC Glucose (mg/dL) 206 H 195 H 172 H (75-99) mg/dL 01/04/21 Range/Units 06:14 POC Glucose (mg/dL) 172 H (75-99) mg/dL Microbiology - Last 24 Hours (Table) 12/30/20 22:20 Blood Culture - Preliminary Blood No Growth after 96 hours 12/30/20 22:05 Blood Culture - Preliminary Blood No Growth after 96 hours 01/01/21 17:02 Anaerobic Culture - Preliminary Foot - Left 01/01/21 17:03 Anaerobic Culture - Preliminary Foot - Left 01/01/21 17:03 Gram Stain - Final Foot - Left Wound Culture - Final Beta Hemolytic Strep Group C Staphylococcus aureus Assessment and Plan (1) Normocytic anemia Narrative/Plan: 48-year-old morbidly obese female with multiple medical comorbidities who presented to the hospital with weakness, multiple ulcers which required debridement, with a hemoglobin of 5.6 and reported dark-colored and bright red blood per rectum for the last week, requiring 2 units of PRBC transfusion. She underwent an upper endoscopy yesterday which showed normal-appearing mucosa, no evidence of esophagitis, gastritis, peptic ulcer disease or neoplasia. No active bleeding. Current Visit: Yes Status: Acute Code(s): D64.9 - ANEMIA, UNSPECIFIED SNOMED Code(s): 820432652 (2) Nonhealing ulcer of left lower extremity limited to breakdown of skin Current Visit: Yes Status: Acute Code(s): L97.921 - NON-PRS CHR ULC UNSP PRT OF L LOW LEG LIMITED TO BRKDWN SKIN SNOMED Code(s): 70018864 (3) Weakness Current Visit: Yes Status: Acute Code(s): R53.1 - WEAKNESS SNOMED Code(s): 57124987 (4) Morbid obesity due to excess calories Current Visit: No Status: Acute Code(s): E66.01 - MORBID (SEVERE) OBESITY DUE TO EXCESS CALORIES SNOMED Code(s): 011218626 (5) Diabetes mellitus Current Visit: Yes Status: Acute Code(s): E11.9 - TYPE 2 DIABETES MELLITUS WITHOUT COMPLICATIONS SNOMED Code(s): 62567959 Plan: 1. Diabetes tolerated 2. Continue symptomatic and supportive care 3. Patient is status post EGD the recommend colonoscopy for further evaluation. Patient is refusing at this time stating that she does not believe she could tolerate the prep. 4. Daily CBC 5. Continue to monitor for signs and symptoms of GI bleed 6. Continue medical management per multiple medical comorbidities 7. Will reevaluate the patient tomorrow, further discuss possibility of colonoscopy Thank you for this consultation, we will continue to follow Dr. Kaufman I agree with the dictator's note, documented as a scribe by Jill Lazo.
--- NOTE | 2021-01-04 15:59 | CDI ---
Documentation Clarification Form Date: 01/04/2021 03:41:27 PM From: Arelis Hylton RN CCDS Admit Date: 12/31/2020 12:15:00 AM Patient Name: Cristal Ferrer Visit Number: [id number] Discharge Date: ATTENTION: The Clinical Documentation Specialists (CDI) and [facility] Coding Staff appreciate your assistance in clarifying documentation. Please respond to the clarification below the line at the bottom and electronically sign. The CDI & [facility] Coding staff will review the response and follow-up if needed. Please note: Queries are made part of the Legal Health Record. If you have any questions, please contact the author of this message via ITS. Dr. Man Cadena Urine cultures are positive for gram negative bacilli. 01/01 in Medicine Progress note. Additional clarification regarding this diagnosis is requested. History/Risk Factors: 55-year-old female presents to the ED as a transfer from [facility] for extremely low hemoglobin. Medical history: CHF, DM, HTN, Super morbid obesity and chronic venous stasis. H&P 12/31. Clinical Indicators: Vital Signs 12/31: B/P 138/58; HR 96; RR 24; Temp 97.7 F; SpO2 98% 2L nasal cannula. WBC 12/31: 27.3 Urinalysis 12/31: Leukocyte esterase Large: Wbc 94. Urine Culture 12/31: Escherichia coli. Treatment Antibiotics: 12/31 Ampicillian 3gm IVPB Q12HR changed 01/02 to Q8HR; 12/31 Vancomycin 2,250mg IVPB x1; 01/01 Vancomycin 2,250mg IVPB x1; 01/01 Daptomycin 950mg IVPB Q48HR d/c 01/01. Please clarify if there is an additional diagnosis associated with the UTI: [ ] UTI POA [ ] Contaminated specimen [ ] Other, please specify [ ] Unable to determine (Template Last Revised: October 2020 Contaminated specimen MTDD
[2021-01-04 17:16] LABS: Glucose,Whole Blood 247 mg/dL (75-99)
[2021-01-04 20:21] LABS: Glucose,Whole Blood 253 mg/dL (75-99)
[2021-01-04] MEDS: LACTATED RINGERS 1,000 ML IV SCH (20:38)
[2021-01-04] MEDS: HYDROcodone/APAP 5-325MG 1 EACH TAB PO PRN (20:39)
[2021-01-04] MEDS: PANTOPRAZOLE 40 MG TABLET PO SCH (20:39)
[2021-01-04] MEDS: ARIPiprazole 5 MG TAB PO SCH (20:41)
[2021-01-05] MEDS: PIPERACILLIN-TAZOBACTAM 3.375 GM in SODIUM CHLORIDE 0.9% 100 ML IVPB SCH ×3 (00:10→16:15)
[2021-01-05] MEDS: HEPARIN SODIUM,PORCINE/PF 5,000 UNIT/0.5 ML SYRINGE SQ SCH ×3 (00:12→16:15)
--- NOTE | 2021-01-05 03:41 | PN ---
PROGRESS NOTE DATE OF SERVICE: 01/04/2021. REASON FOR FOLLOW UP: Left diabetic foot infection with underlying osteomyelitis. INTERVAL HISTORY: The patient is afebrile. The patient is breathing comfortably. The patient denies having any chest pain, shortness of breath, cough, no abdominal pain or any worsening pain. PHYSICAL EXAMINATION: Blood pressure 123/72 with a pulse of 83, temperature 98.1. She is 95% on room air. General description: The patient is a middle-aged female lying in bed in no distress. Respiratory system: Unlabored breathing, clear to auscultation anteriorly. Heart S1, S2. Regular rate and rhythm. Abdomen: Soft. No tenderness. Left foot is currently dressed. No obvious drainage on the dressing. LABS: Hemoglobin is 7.4, white count 11.9. Creatinine is down to 1.64. Local wound culture has been finalized with strep and MSSA. Superficial cultures did shows Pseudomonas as well. DIAGNOSTIC IMPRESSION AND PLAN: Patient with left diabetic foot infection. Culture with multiple pathogen including Pseudomonas MSSA and group C strep. Antibiotic will be adjusted to Zosyn to cover for all the pathogen. She will need at least 4-6 weeks of IV antibiotic depending on clinical response to local wound care with wound VAC and continue supportive care. MMODL / IJN: [id number] /
[2021-01-05 06:14] LABS: Glucose,Whole Blood 195 mg/dL (75-99)
[2021-01-05] MEDS: INSULIN ASPART (NovoLOG) 100 UNIT/ML VIAL SQ SCH ×4 (06:50→22:11)
[2021-01-05 07:20] LABS: Glucose,Whole Blood 190 mg/dL (75-99)
[2021-01-05] MEDS: FLUCONAZOLE 100 MG TAB PO SCH (07:27)
[2021-01-05] MEDS: GABAPENTIN 100 MG CAP PO SCH ×2 (07:27→22:11)
[2021-01-05] MEDS: PANTOPRAZOLE 40 MG TABLET PO SCH ×2 (07:27→22:11)
[2021-01-05] MEDS: DULoxetine HCL 60 MG CAPSULE.DR PO SCH ×2 (07:27→22:11)
[2021-01-05] MEDS: NON FORMULARY DRUG (Liraglutide [Victoza 2-Pak] 0.6 MG/0.1 ML Pen.Injctr) SQ SCH (07:28)
[2021-01-05] MEDS: NYSTATIN 100,000 UNIT/GM POWD 15 GM TOPICAL SCH ×3 (07:28→22:12)
[2021-01-05] MEDS: FUROSEMIDE 10 MG/ML 4 ML VIAL IV SCH (07:28)
[2021-01-05 08:15] LABS: Anisocytosis Moderate; HCT 26.1 % (34.0-46.0); HGB 7.5 gm/dL (11.4-16.0); Hypochromasia Marked; MCHC 28.6 g/dL (31.0-37.0); MCV 87.2 fL (80.0-100.0); Mean Platelet Volume 8.8; Platelet Count 249 k/uL (150-450); Poikilocytosis Moderate; RBC 2.99 m/uL (3.80-5.40); RDW 20.4 % (11.5-15.5); WBC 10.4 k/uL (3.8-10.6)
[2021-01-05 08:19] LABS: Calcium 8.3 mg/dL (8.4-10.2); Potassium 3.5 mmol/L (3.5-5.1)
[2021-01-05] MEDS ORDERED: LIDOCAINE 1% INJ 10MG/ML (20 ML MDV) ONE (10:19)
[2021-01-05] MEDS ORDERED: POTASSIUM CHLORIDE ER 20 MEQ TAB.ER PO STA (10:49)
--- NOTE | 2021-01-05 10:49 | P.NPCON ---
History of Present Illness - Reason for Consult acute renal failure - History of Present Illness Reason for consultation: Acute kidney injury History of present illness: Patient is a 56-year-old female seen in consultation for acute kidney injury. Patient's creatinine as of May 2020 was 1.03. This admission her creatinine was 2.03 and was stable near 1.6 the last 2 days. Today it is up to 2.37. Patient presented to the hospital on 12/30/2020 due to nonhealing ulcer on her left lower extremity. On January 02, she underwent incision and drainage of the abscess and wound debridement. Wound cultures are positive for staph, strep as well as pseudomonas. She is maintained on IV antibiotics per infectious disease. Patient was also noted to be anemic and underwent EGD which revealed no acute findings. Hemoglobin initially was 5.6 and a 7.5 today. She did receive blood transfusion this admission. She is also maintained on IV Lasix 40 mg twice daily. Currently feels weak. Denies chest pain or shortness of breath. She was taking ibuprofen outpatient. She has long-standing history of diabetes. Lisinopril and metformin held. Denies family history of renal disease. Vital signs are stable. General: The patient appeared well nourished and normally developed. HEENT: Head exam is unremarkable. Neck is without jugular venous distension. LUNGS: Breath sounds decreased. HEART: Rate and Rhythm are regular. ABDOMEN: Soft, obese. EXTREMITITES: Left foot drop. Chronic changes noted in the right lower extremity. Past Medical History Past Medical History: Heart Failure, Diabetes Mellitus, GERD/Reflux, Hypertension, Osteoarthritis (OA) Additional Past Medical History / Comment(s): Depression, Super morbid obesity, Newly diagnosed HF, Neuropathy bilateral legs, Partial small bowel resection with ventral hernia incarceration,-Type 2 diabetes mellitus,-Gastro-Esophageal reflux disease,Hypertension. Chronic venous stasis with dermatosis and pedal edema chronic, enterobacter and enterococal wound infection 2018 History of Any Multi-Drug Resistant Organisms: None Reported Past Surgical History: Section, Cholecystectomy, Hernia Repair, Hysterectomy Past Anesthesia/Blood Transfusion Reactions: No Reported Reaction Past Psychological History: Depression Smoking Status: Former smoker Past Alcohol Use History: None Reported Past Drug Use History: None Reported - Past Family History Mother Family Medical History: Myocardial Infarction (SD) Father Family Medical History: Cancer Medications and Allergies Home Medications Medication Instructions Recorded Confirmed Type ARIPiprazole [Abilify] 5 mg PO HS 01/29/18 12/31/20 History DULoxetine HCL [Cymbalta] 60 mg PO BID 01/29/18 12/31/20 History Pravastatin Sodium [Pravachol] 20 mg PO HS 01/29/18 12/31/20 History lisinopriL [Zestril] 10 mg PO DAILY 01/29/18 12/31/20 History metFORMIN HCL [Glucophage] 1,000 mg PO BID@0900,1700 05/15/20 12/31/20 History ALPRAZolam [Xanax] 0.5 mg PO BID 12/31/20 12/31/20 History Allopurinol [Zyloprim] 300 mg PO DAILY 12/31/20 12/31/20 History Furosemide [Lasix] 40 mg PO BID 12/31/20 12/31/20 History Gabapentin 300 mg PO BID 12/31/20 12/31/20 History Ibuprofen [Motrin] 800 mg PO DAILY 12/31/20 12/31/20 History Liraglutide [Victoza 2-Brenden] 1.8 mg SQ DAILY 12/31/20 12/31/20 History Ondansetron [Zofran] 4 mg PO Q8H PRN 12/31/20 12/31/20 History Allergies Allergy/AdvReac Type Severity Reaction Status Date / Time cephalexin monohydrate AdvReac Nausea & Verified 12/06/19 18:32 [From Keflex] Vomiting Physical Exam Vitals: Vital Signs Temp Pulse Resp BP Pulse Ox 01/05/21 07:31 96.2 F L 79 16 120/68 91 L 01/05/21 02:00 97.4 F L 74 18 147/68 92 L 01/04/21 20:00 98.5 F 83 18 145/62 94 L 01/04/21 16:46 90 L 01/04/21 16:00 86 123/72 95 01/04/21 12:00 75 16 118/70 97 Intake and Output 01/04/21 01/05/21 01/05/21 22:59 06:59 14:59 Intake Total 200 Output Total 1000 Balance -800 Intake: Oral 200 Output: Urine 1000 Other: Voiding Method Indwelling Catheter # Bowel Movements 2 1 Results - Lab Results Most recent lab results Calcium 8.3 mg/dL (8.4-10.2) L 01/05/21 07:02 01/05/21 07:02 01/05/21 07:02 Assessment and Plan Plan: Assessment: 1. Acute kidney injury mostly prerenal secondary to acute anemia, diuresis and infection. Renal function worse. Creatinine 2.37 today. Creatinine in May 2020 was as low as 1.03. 2. Left foot nonhealing wound status post incision and drainage. Maintained on antibiotics. 3. Metabolic acidosis secondary to acute kidney injury. 4. Diabetes mellitus. 5. Acute blood loss anemia status post EGD which was negative. Status post blood transfusion this admission. 6. UTI with urine culture positive for E. coli. On antibiotics. 7. Hypokalemia from diuresis. Plan: Stop Lasix. Add oral sodium bicarb. Check renal ultrasound. Avoid nephrotoxins. Replace potassium. Cleared for PICC line placement in her dominant arm. Repeat electrolytes in the morning. Thank you for the consultation. I will continue to follow the patient with you during her hospital stay.
[2021-01-05] MEDS ORDERED: LIDOCAINE 1% INJ 10MG/ML (20 ML MDV) SQ ONE (10:57)
[2021-01-05 11:44] LABS: Glucose,Whole Blood 170 mg/dL (75-99)
--- NOTE | 2021-01-05 11:46 | P.DS ---
Providers Date of admission: 12/31/20 00:15 Expected date of discharge: 01/05/21 Attending physician: Stephanie Rodriguez Consults: 12/31/20 00:13 Consult Physician Routine Consulting Provider: Shannon Garrett Consult Reason/Comments: osteo Do you want consulting provider notified?: Yes Consult Physician Routine Consulting Provider: Marco Antonio Kaufman Consult Reason/Comments: gib Do you want consulting provider notified?: Yes 12/31/20 18:49 Consult Physician Routine Consulting Provider: Raza Mcdonald Consult Reason/Comments: left foot abscess/ wound , debridemnt and epp cultures Do you want consulting provider notified?: Yes 01/04/21 13:33 Consult Physician Routine Consulting Provider: Caesar Medley Consult Reason/Comments: PICC line clearance for home antibiotics-low GFR Do you want consulting provider notified?: Yes Primary care physician: [facility] Course: 55-year-old female answer from [facility] because of the extreme low hemoglobin. And has a hemoglobin enforce after which patient is received monitor transfusion subsequently transferred here. Patient is to 2 more units of transfusion here patient present hemoglobin is 7.0 patient did have blood in the stools which happened a few days ago denied any recent GI bleed. Patient denied any loss stools. Patient does have multiple other issues going on. Patient is mostly bedbound barely can move around patient lives with the her son who takes care of for, patient is complaining of odynophagia does have some oral thrush with blood and bloody discharge in the time. Patient has multiple ulcerations with foul-smelling discharge. Patient was started on vancomycin. Patient does have leukocytosis doesn't have any fever. Patient is also found to have pulmonary edema receiving IV Lasix patient does have bilateral lower limb edema patient had a normal ejection fraction the past. Patient is also receiving Lasix at this time. Patient was hyperkalemic as well patient is also on lisinopril patient baseline creatinine appears to be normal presently 2.03. Patient has significant superficial fungal infection in the skin folds. Patient is also comparing of shortness of breath. 01/01/2021 Patient is urine cultures are positive for gram-negative bacilli. Patient's hemoglobin 7.7 no more GI bleed clinically at this time. looks bit better today although still complaining of odynophagia. Patient had a left foot CT which showed abscess or osteomyelitis and Charcot-type arthropathy. Patient the will undergo incision and drainage and debridement by vascular surgery. Patient is presently on Unasyn, daptomycin and flucanazole. 01/02/2021 Patient's right pupil is constricted and not reacting left pupil is reacting to light. We'll obtain CAT scan of the head. Patient blood pressure is low normal patient is still having good urine output still has some swelling of the legs with significantly improved compared to yesterday DOWN THE LASIX TO TWICE A DAY FROM 3 TIMES A DAY DID PATIENT WILL UNDERGO UPPER GI ENDOSCOPY TODAY. 01/03/2021 Patient is having an EGD. Wound cultures is showing staph aureus beta hemolytic streptococci and culture showing E. coli. Patient had ostial myelitis and had an extensive debridement of the left foot for abscess. Patient probably will need IV antibiotics. 01/04/2021 Patient had a an EGD which didn't show any significant abnormality. Patient declined colonoscopy. Patient doesn't have any more GI bleed at this time patient has osteomyelitis, patient will need IV antibiotics and wound care patient had debridement of the left foot for an abscess. Patient is showing MSSA daptomycin was discontinued, patient is only on Unasyn at this time. Patient has streptococci, MSSA. Patient is also being covered for anaerobic bacteria with Unasyn. Case management is working on her placement to subacute rehabitation for wound care and IV antibiotics and physical therapy patient probably can be discharged to subacute rehabilitation rehab if that can be arranged by tomorrow. 01/05/2021; clinically stable for dc Patient Condition at Discharge: Serious Plan - Discharge Summary New Discharge Prescriptions: New Sodium Bicarbonate Tab 1,300 mg PO BID #60 tab Piperacillin-Tazobactam [Zosyn] 3.375 gm IVPB Q8HR #10 vial Fluconazole [Diflucan] 100 mg PO DAILY #14 tab Pantoprazole [Protonix] 40 mg PO BID #60 tablet. Continue ARIPiprazole [Abilify] 5 mg PO HS DULoxetine HCL [Cymbalta] 60 mg PO BID Pravastatin Sodium [Pravachol] 20 mg PO HS lisinopriL [Zestril] 10 mg PO DAILY metFORMIN HCL [Glucophage] 1,000 mg PO BID@0900,1700 Liraglutide [Victoza 2-Brenden] 1.8 mg SQ DAILY Ibuprofen [Motrin] 800 mg PO DAILY Furosemide [Lasix] 40 mg PO BID Ondansetron [Zofran] 4 mg PO Q8H PRN PRN Reason: Nausea Allopurinol [Zyloprim] 300 mg PO DAILY ALPRAZolam [Xanax] 0.5 mg PO BID Gabapentin 300 mg PO BID #6 cap Discharge Medication List ARIPiprazole [Abilify] 5 mg PO HS 01/29/18 [History] DULoxetine HCL [Cymbalta] 60 mg PO BID 01/29/18 [History] Pravastatin Sodium [Pravachol] 20 mg PO HS 01/29/18 [History] lisinopriL [Zestril] 10 mg PO DAILY 01/29/18 [History] metFORMIN HCL [Glucophage] 1,000 mg PO BID@0900,1700 05/15/20 [History] ALPRAZolam [Xanax] 0.5 mg PO BID 12/31/20 [History] Allopurinol [Zyloprim] 300 mg PO DAILY 12/31/20 [History] Furosemide [Lasix] 40 mg PO BID 12/31/20 [History] Ibuprofen [Motrin] 800 mg PO DAILY 12/31/20 [History] Liraglutide [Victoza 2-Brenden] 1.8 mg SQ DAILY 12/31/20 [History] Ondansetron [Zofran] 4 mg PO Q8H PRN 12/31/20 [History] Fluconazole [Diflucan] 100 mg PO DAILY #14 tab 01/05/21 [Rx] Gabapentin 300 mg PO BID #6 cap 01/05/21 [Rx] Pantoprazole [Protonix] 40 mg PO BID #60 tablet. 01/05/21 [Rx] Piperacillin-Tazobactam [Zosyn] 3.375 gm IVPB Q8HR #10 vial 01/05/21 [Rx] Sodium Bicarbonate Tab 1,300 mg PO BID #60 tab 01/05/21 [Rx] Follow up Appointment(s)/Referral(s): [facility] [NON-STAFF] - Care,[facility] [NON-STAFF] - Sima Lopez PAC [Primary Care Provider] - [address] [NON-STAFF] - Discharge Disposition: TRANSFER TO SNF/ECF
--- NOTE | 2021-01-05 11:57 | IR ---
EXAMINATION TYPE: IR cvc insert >=5 years DATE OF EXAM: 01/05/2021 COMPARISON: NONE CLINICAL HISTORY: Infection Needs long-term intravenous access for antibiotics. PROCEDURE: Hand hygiene obtained with soap and water and alcohol-based hand rub. After informed consent, the skin overlying the right upper extremity vein was localized with ultrasou nd and noted to be compressible and patent. An ultrasound image was obtained and submitted on the lars ching's chart. The overlying skin was prepped and draped and Lidocaine was used for local anesthesia . A skin vlad was made with a scalpel. Access was gained to the vein under ultrasound guidance with a 21 gauge needle and a 0.018 inch wire was advanced. Access site was dilated with Peel-Away sheath and catheter tailored to the appropriate length and advanced such that the distal tip is at the cavo atrial junction. Spot image was obtained verifying placement. Catheter was fixed to the skin and a sterile dressing was placed following hemostasis. Catheter was aspirated and flushed with saline. P atient was discharged in stable condition without complication.Maximal barrier technique is utilized. Ultrasound image is documented on the chart. Ultrasound used with sterile technique. Fluoro time and fluoroscopic images submitted to document procedure: 70 intraoperative C-arm images, 0.2 minutes fluoroscopy time IMPRESSION: STATUS POST ULTRASOUND AND FLUOROSCOPIC GUIDED PICC LINE PLACEMENT, READY FOR USE. THIS PROCEDURE WAS PERFORMED BY THE UNDERSIGNED.
[2021-01-05] MEDS: SODIUM BICARBONATE TAB 650 MG TAB PO SCH ×2 (12:25→22:11)
--- NOTE | 2021-01-05 14:05 | US ---
EXAMINATION TYPE: US kidneys/renal and bladder DATE OF EXAM: 01/05/2021 COMPARISON: US 05/15/2020 CLINICAL HISTORY: raymundo. EXAM MEASUREMENTS: Right Kidney: 14.5 X 6.0 X 6.9 cm Left Kidney: 13.5 X 7.1 X 5.9 cm Right Kidney: No hydronephrosis or renal calculi seen Left Kidney: No hydronephrosis or renal calculi seen, superior pole obscured by bowel gas. Bladder: not imaged, patient has catheter. Study is suboptimal due to overlying bowel gas. IMPRESSION: 1. Study is suboptimal due to overlying bowel gas. No hydronephrosis or shadowing renal calculi are s een. 2. The urinary bladder is not visualized. Patient has a urinary catheter.
[2021-01-05 15:07] VITALS: BMI 43.9
--- NOTE | 2021-01-05 15:17 | PN ---
PROGRESS NOTE DATE OF SERVICE: January 05, 2021 Patient is a 56-year-old pleasant white female admitted to hospital with left foot infection/cellulitis status post I and D and on broad-spectrum antibiotics. She was also noted to have anemia during this hospitalization. She had an upper endoscopy done that was unremarkable. Hemoglobin is 7.5 g/dL clinically. She denies any abdominal pain. No nausea, no vomiting. No rectal bleeding or melena. PHYSICAL EXAMINATION: Appears comfortable. VITAL SIGNS: Stable. Blood pressure 120/68, pulse rate 79, temperature 96.2. HEENT examination unremarkable. Conjunctivae pink. Sclerae anicteric. Oral cavity no lesions. NECK: No JVD or lymph node enlargement. CHEST was clear to auscultation. HEART: Regular rate and rhythm. ABDOMEN: Obese. Bowel sounds are positive. No organomegaly. EXTREMITIES: Cellulitis of the left foot and severe hyperpigmentation and venous stasis of both lower extremities. LABS: From today: WBC 10.9, hemoglobin 7.5, platelets normal. BUN is 69, creatinine 2.37. IMPRESSION: 1. Normocytic anemia with no evidence of active bleeding, status post EGD 2 days ago that was unremarkable. Colonoscopy was not performed because of multiple comorbid conditions. 2. Left foot infection status post I and D 2 days ago on broad-spectrum antibiotics. 3. Elevated BUN and creatinine consistent with chronic kidney disease. 4. Longstanding history of diabetes mellitus. RECOMMENDATIONS: 1. Continue to monitor hemoglobin daily. 2. We will consider a colonoscopy on an outpatient basis. 3. Will sign off at this time. Please call us if needed. Thank you for this consultation. MMODL / IJN: [id number] /
[2021-01-05 16:46] LABS: Glucose,Whole Blood 247 mg/dL (75-99)
--- NOTE | 2021-01-05 19:18 | PN ---
PROGRESS NOTE DATE OF SERVICE: 01/05/2021 REASON FOR FOLLOWUP: Left diabetic foot infection. INTERVAL HISTORY: The patient is afebrile. The patient is breathing comfortably. The patient denies having any chest pain or cough. No nausea, no vomiting, no abdominal pain or any worsening pain to the left foot. PHYSICAL EXAMINATION: Blood pressure 122/67 with a pulse of 78, temperature 98. She is 93% on room air. General description is a middle-aged female lying in bed in no distress. RESPIRATORY SYSTEM: Unlabored breathing. Clear to auscultation anteriorly. HEART: S1, S2. Regular rate and rhythm. ABDOMEN: Soft. No tenderness. Left foot is currently dressed up. No obvious drainage on the dressing. LABS: Hemoglobin is 10.5, white count 10.4, BUN of 69, creatinine is 2.37. DIAGNOSTIC IMPRESSION AND PLAN: Patient with a left diabetic foot infection with underlying abscess and osteomyelitis. Culture has been positive for multiple pathogens, including MSSA, Pseudomonas, and beta hemolytic group C strep. Patient is covered with Zosyn. She did have worsening of the white count, for which the patient is being monitored. She should be evaluated by Nephrology. Continue Zosyn. Local wound care as ordered. Continue supportive care. MMODL / IJN: [id number] /
[2021-01-05 20:50] LABS: Glucose,Whole Blood 272 mg/dL (75-99)
[2021-01-05] MEDS: ARIPiprazole 5 MG TAB PO SCH (22:11)
[2021-01-05] MEDS: LACTATED RINGERS 1,000 ML IV SCH (23:54)
[2021-01-06] MEDS: PIPERACILLIN-TAZOBACTAM 3.375 GM in SODIUM CHLORIDE 0.9% 100 ML IVPB SCH ×4 (00:32→23:47)
[2021-01-06] MEDS: HEPARIN SODIUM,PORCINE/PF 5,000 UNIT/0.5 ML SYRINGE SQ SCH ×4 (00:32→23:48)
[2021-01-06 07:39] LABS: Glucose,Whole Blood 192 mg/dL (75-99)
[2021-01-06] MEDS: GABAPENTIN 100 MG CAP PO SCH ×2 (08:07→19:48)
[2021-01-06] MEDS: SODIUM BICARBONATE TAB 650 MG TAB PO SCH ×2 (08:07→19:48)
[2021-01-06] MEDS: FLUCONAZOLE 100 MG TAB PO SCH (08:07)
[2021-01-06] MEDS: PANTOPRAZOLE 40 MG TABLET PO SCH ×2 (08:07→19:48)
[2021-01-06] MEDS: DULoxetine HCL 60 MG CAPSULE.DR PO SCH ×2 (08:07→19:48)
[2021-01-06] MEDS: INSULIN ASPART (NovoLOG) 100 UNIT/ML VIAL SQ SCH ×4 (08:08→20:02)
[2021-01-06] MEDS: NYSTATIN 100,000 UNIT/GM POWD 15 GM TOPICAL SCH ×3 (08:09→19:49)
[2021-01-06] MEDS: NON FORMULARY DRUG (Liraglutide [Victoza 2-Pak] 0.6 MG/0.1 ML Pen.Injctr) SQ SCH (08:12)
[2021-01-06 10:22] LABS: African American GFR (CKD) 19.9 (60.0-200.0); Anion Gap 11.8 mmol/L (4.00-12.00); BUN/Creat Ratio 26.21 Ratio (12.00-20.00); Calcium 8.1 mg/dL (8.7-10.3); Carbon Dioxide 14.2 mmol/L (21.6-31.8); Magnesium 1.9 mg/dL (1.5-2.4); Non-African American GFR(CKD) 17.1 (60.0-200.0)
[2021-01-06 11:47] LABS: Glucose,Whole Blood 195 mg/dL (75-99)
--- NOTE | 2021-01-06 14:05 | PN ---
PROGRESS NOTE The patient is seen for followup for acute kidney injury. She was admitted to the hospital with left lower extremity wounds. She is status post I and D on January 02, 2021. Patient's wound cultures are positive for Staph and Strep and Pseudomonas. She is currently maintained on IV antibiotics, being followed by infectious disease. The patient's hemoglobin was also significantly low at 5.6, and she is status post packed RBCs transfusion. She is currently patient was being diuresed. Lasix was held yesterday. Serum creatinine has increased to 2.9 today from 2.37 yesterday. CO2 is at 14. Blood pressure is staying 116-127 mmHg systolic. PHYSICAL EXAMINATION: On examination today, blood pressure 127/65, heart rate 72 per minute. She is afebrile. Examination of the heart S1, S2. Examination of the lungs, decreased breath sounds at the bases. Abdomen is soft, nontender. Examination of lower extremities shows edema 1+ bilaterally. DIRECTOR OF CULTURE exam grossly intact. LAB: Show sodium 139, potassium 4.0, chloride 113, CO2 is 14.2, BUN 76, creatinine 2.9. ASSESSMENT: 1. Acute kidney injury, acute tubular necrosis, currently nonoliguric. A 24 hour urine output documented at 1000 mL cc on January 04. I do not have any recent unit urine urinary output charting. No nephrotoxic agents on board at this time. The patient is off diuretics. Her random vanco level was 9.3 on January 01. Ultrasound of the kidneys done on January 05 showed no significant hydronephrosis. 2. Left foot nonhealing wound, status post I and D, maintained on antibiotics. 3. Metabolic acidosis associated with acute kidney injury. Maintained on oral sodium bicarb. It is worse today. 4. Urinary tract infection. Urine culture positive for E coli. 5. Hypokalemia on diuresis. 6. Acute blood loss anemia status post EGD, status post packed RBCs transfusion. No evidence of bleeding noted on EGD. PLAN: Add IV bicarb. Repeat labs in a.m. Monitor urine output accurately. Avoid nephrotoxic agents. Continue with oral sodium bicarb as well for now. MMODL / IJN: [id number] /
[2021-01-06] MEDS: DEXTROSE 5% IN WATER 1,000 ML with SODIUM BICARB (1 MEQ/ML) 150 ML IV SCH (16:31)
[2021-01-06 16:44] LABS: Glucose,Whole Blood 180 mg/dL (75-99)
--- NOTE | 2021-01-06 18:18 | PN ---
PROGRESS NOTE DATE OF SERVICE: 01/06/2021 REASON FOR FOLLOWUP: Left diabetic foot infection with underlying abscess . INTERVAL HISTORY: The patient is currently afebrile. Patient is hemodynamically stable. No chest pain or palpitations. No abdominal pain. Has some diarrhea. No worsening pain of the left foot. PHYSICAL EXAMINATION: Blood pressure 127/71 with pulse 71. Temperature 97.3. She is 95% on room air. General description is a middle-aged female lying in in no distress. Respiratory system: Unlabored breathing. Left foot is currently dressed. No obvious drainage on the dressing. LABS: BUN of 76, creatinine was 2.9. DIAGNOSTIC IMPRESSION AND PLAN: Patient with left foot diabetic foot infection with underlying abscess and osteo status post drainage of the abscess. Culture did show MSSA and Pseudomonas Strep Proteus. The patient is covered with Zosyn. The patient did have worsening of the kidney function while the patient is currently being evaluated by Nephrology. Continue supportive care. MMODL / IJN: [id number] / MTDGale
[2021-01-06] MEDS: ARIPiprazole 5 MG TAB PO SCH (19:48)
[2021-01-06 19:59] LABS: Glucose,Whole Blood 200 mg/dL (75-99)
[2021-01-06] MEDS: LACTATED RINGERS 1,000 ML IV SCH (21:29)
[2021-01-07] MEDS: LACTATED RINGERS 1,000 ML IV SCH (01:22)
[2021-01-07 07:15] LABS: Glucose,Whole Blood 172 mg/dL (75-99)
[2021-01-07] MEDS: DULoxetine HCL 60 MG CAPSULE.DR PO SCH ×2 (07:37→20:12)
[2021-01-07] MEDS: GABAPENTIN 100 MG CAP PO SCH ×2 (07:37→20:12)
[2021-01-07] MEDS: PANTOPRAZOLE 40 MG TABLET PO SCH ×2 (07:37→20:12)
[2021-01-07] MEDS: INSULIN ASPART (NovoLOG) 100 UNIT/ML VIAL SQ SCH ×4 (07:37→21:01)
[2021-01-07 07:38] LABS: Anisocytosis Moderate; Basophils % (A) 0 %; Eosinophils # (A) 0.3 k/uL (0-0.7); Eosinophils % (A) 4 %; HCT 25.2 % (34.0-46.0); HGB 7.5 gm/dL (11.4-16.0); Hypochromasia Marked; Lymphocytes # (A) 1.3 k/uL (1.0-4.8); Lymphocytes % (A) 16 %; MCH 25.5 pg (25.0-35.0); MCHC 29.7 g/dL (31.0-37.0); MCV 85.9 fL (80.0-100.0); Mean Platelet Volume 7.3; Microcytosis Slight; Monocytes # (A) 0.5 k/uL (0-1.0); Monocytes % (A) 5 %; Neutrophils # (A) 6.4 k/uL (1.3-7.7); Neutrophils % (A) 74 %; Platelet Count 213 k/uL (150-450); Poikilocytosis Moderate; RBC 2.94 m/uL (3.80-5.40); RDW 21.3 % (11.5-15.5); WBC 8.6 k/uL (3.8-10.6)
[2021-01-07] MEDS: NON FORMULARY DRUG (Liraglutide [Victoza 2-Pak] 0.6 MG/0.1 ML Pen.Injctr) SQ SCH (07:38)
[2021-01-07] MEDS: PIPERACILLIN-TAZOBACTAM 3.375 GM in SODIUM CHLORIDE 0.9% 100 ML IVPB SCH ×2 (07:38→20:12)
[2021-01-07] MEDS: FLUCONAZOLE 100 MG TAB PO SCH (07:38)
[2021-01-07] MEDS: SODIUM BICARBONATE TAB 650 MG TAB PO SCH ×2 (07:38→20:12)
[2021-01-07] MEDS: HEPARIN SODIUM,PORCINE/PF 5,000 UNIT/0.5 ML SYRINGE SQ SCH ×3 (07:38→23:52)
[2021-01-07] MEDS ORDERED: FUROSEMIDE 10 MG/ML 10 ML VIAL IV STA (08:47)
--- NOTE | 2021-01-07 09:49 | P.PN ---
Subjective Progress Note Date: 01/06/21 Principal diagnosis: Worsening acute on chronic kidney disease stage III Acute exacerbation CHF GI bleed/acute blood loss anemia/ esophageal candidiasis Osteomyelitis/abscess left foot/multiple ulcerations both lower extremities 55-year-old female answer from [facility] because of the extreme low hemoglobin. And has a hemoglobin enforce after which patient is received monitor transfusion subsequently transferred here. Patient is to 2 more units of transfusion here patient present hemoglobin is 7.0 patient did have blood in the stools which happened a few days ago denied any recent GI bleed. Patient denied any loss stools. Patient does have multiple other issues going on. Patient is mostly bedbound barely can move around patient lives with the her son who takes care of for, patient is complaining of odynophagia does have some oral thrush with blood and bloody discharge in the time. Patient has multiple ulcerations with foul-smelling discharge. Patient was started on vancomycin. Patient does have leukocytosis doesn't have any fever. Patient is also found to have pulmonary edema receiving IV Lasix patient does have bilateral lower limb edema patient had a normal ejection fraction the past. Patient is also receiving Lasix at this time. Patient was hyperkalemic as well patient is also on lisinopril patient baseline creatinine appears to be normal presently 2.03. Patient has significant superficial fungal infection in the skin folds. 01/06/2021 Patient is seen and evaluated in room at bedside and discussed with RN in great detail; concerns about significantly low urine output; patient has been placed on IV fluids per nephrology recommendations; discharge held due to worsening renal failure Vital signs are reviewed; nephrology is following for worsening acute renal injury; patient is not on any nephrotoxic agents and off diuretic therapy; renal ultrasound done and reveals no significant hydronephrosis; nephrology recommending to add bicarb and monitor renal function and electrolytes closely; recommending strict YVES monitoring; further recommendations pending repeat labs tomorrow morning ID following for left foot diabetic foot infection with underlying abscess/osteomyelitis- patient is status post drainage of abscess with culture showing MSSA and Pseudomonas with Proteus; patient remains on IV Zosyn Objective - Vital Signs Vital signs: Vital Signs Temp 97.8 F 01/06/21 08:13 Pulse 72 01/06/21 08:13 Resp 18 01/06/21 08:13 BP 127/65 01/06/21 08:13 Pulse Ox 92 L 01/06/21 08:13 Intake & Output 01/05/21 01/06/21 01/06/21 18:59 06:59 18:59 Weight 109 kg Other: Voiding Method Indwelling Catheter Indwelling Catheter # Bowel Movements 3 - Exam GENERAL: The patient is alert and oriented x3, not in any acute distress. Obese , unkempt HEENT: Pupils are round and equally reacting to light. EOMI. No scleral icterus. No conjunctival pallor. Normocephalic, atraumatic. No pharyngeal erythema. No thyromegaly. Oral thrush CARDIOVASCULAR: S1 and S2 present. No murmurs, rubs, or gallops. PULMONARY: Chest is clear to auscultation, no wheezing or crackles. ABDOMEN: Soft, nontender, nondistended, normoactive bowel sounds. No palpable organomegaly. MUSCULOSKELETAL: No joint swelling or deformity. EXTREMITIES: No cyanosis, clubbing, extensive bilateral pedal edema with multiple ulcerations NEUROLOGICAL: Gross neurological examination did not reveal any focal deficits. SKIN: Candidial intertrigo - Labs CBC & Chem 7: 01/07/21 07:00 01/06/21 05:32 Labs: Abnormal Lab Results - Last 24 Hours (Table) 01/05/21 01/05/21 01/06/21 Range/Units 16:44 20:47 05:32 Chloride 113 H (96-109) mmol/L Carbon Dioxide 14.2 L (21.6-31.8) mmol/L BUN 76.0 H (9.0-27.0) mg/dL Creatinine 2.9 H (0.6-1.5) mg/dL Est GFR (CKD-EPI)AfAm 19.9 L (60.0-200.0) Est GFR (CKD-EPI)NonAf 17.1 L (60.0-200.0) BUN/Creatinine Ratio 26.21 H (12.00-20.00) Ratio Glucose 204 H (70-110) mg/dL POC Glucose (mg/dL) 247 H 272 H (75-99) mg/dL Calcium 8.1 L (8.7-10.3) mg/dL 01/06/21 01/06/21 Range/Units 07:10 11:27 Chloride (96-109) mmol/L Carbon Dioxide (21.6-31.8) mmol/L BUN (9.0-27.0) mg/dL Creatinine (0.6-1.5) mg/dL Est GFR (CKD-EPI)AfAm (60.0-200.0) Est GFR (CKD-EPI)NonAf (60.0-200.0) BUN/Creatinine Ratio (12.00-20.00) Ratio Glucose (70-110) mg/dL POC Glucose (mg/dL) 192 H 195 H (75-99) mg/dL Calcium (8.7-10.3) mg/dL Microbiology - Last 24 Hours (Table) 12/30/20 22:05 Blood Culture - Final Blood No Growth after 144 hours 12/30/20 22:20 Blood Culture - Final Blood No Growth after 144 hours 01/01/21 17:02 Anaerobic Culture - Final Foot - Left 01/01/21 17:03 Anaerobic Culture - Final Foot - Left 01/01/21 17:02 Gram Stain - Final Foot - Left Tissue Culture - Final Beta Hemolytic Strep Group C Staphylococcus aureus Pseudomonas aeruginosa Proteus mirabilis Assessment and Plan Assessment: Severe anemia with recent blood loss presently not actively bleeding: Patient the will receive blood transfusion patient's hemoglobin is presently 7.00 total of 3 units of PRBC transfusion. Gastroenterology evaluted patient had an upper GI endoscopy which insurance significant abnormality. -Osteomyelitis and an abscess of the left foot multiple ulcerations of both legs. -Congestive heart failure chronic diastolic dysfunction with acute exacerbation patient will be continued on IV Lasix patient has highly elevated BNP bilateral pedal edema improved patient will be switched to to oral Lasix. -Hyperkalemia secondary to losartan and acute renal failure, losartan is being held. Patient's present potassium is 4.4. -Acute renal failure secondary to prerenal azotemia from a congestive heart failure improving with Lasix losartan will be held and patient may have chronic kidney disease stage III -Bilateral lower extremity edema with chronic venous stasis and chronic venous stasis ulcerations: Patient is on Unasyn, daptomycin. Wound Care and infectious disease lying the patient. Patient has Streptococcus cocci and MSSA in the wounds. -Leukocytosis secondary to extensive wounds and bilateral lower extremity improving Candidal intertrigo topical nystatin powder -Possible candidal esophagitis for which patient was started on IV flucanazole, her dysphagia improved -Type 2 diabetes mellitus -Hypertension -Depression -Morbid obesity - DVT prophylaxis with subcutaneous heparin
[2021-01-07] MEDS: NYSTATIN 100,000 UNIT/GM POWD 15 GM TOPICAL SCH ×3 (10:27→20:17)
[2021-01-07 11:01] LABS: Glucose,Whole Blood 208 mg/dL (75-99)
--- NOTE | 2021-01-07 13:20 | PN ---
PROGRESS NOTE Patient is seen for followup for acute kidney injury. Her renal function has worsened over the last couple of days with serum creatinine up to 2.9 yesterday from 2.37 the day before. The patient has had poor urine output as well. She has an indwelling Guzman catheter with no significant urine obtained for the whole day yesterday. The patient's blood pressure is not low. She has not been eating much. She is not on any nephrotoxic medications. She was started on bicarb drip yesterday which was apparently not running and the IV has just been switched. The Guzman catheter was flushed and there was not much urine obtained after that as well. PHYSICAL EXAMINATION: On examination today, blood pressure 130/71, heart rate of 73 per minute. Patient is afebrile. Examination of the heart S1, S2. Examination of lungs, decreased breath sounds at bases. Patient is morbidly obese. Abdomen is soft, nontender. Examination lower extremities shows edema with chronic skin changes. [employer] exam shows patient is lethargic. She is moving all four extremities. LAB: Show hemoglobin 7.5 today. Renal profile is currently pending. ASSESSMENT: 1. Acute kidney injury with worsening renal function over the last couple of days with oliguria, most likely acute tubular necrosis. Will give one dose of IV Lasix. Continue off IV fluids as patient is mildly volume overloaded. If her renal function continues to worsen, she will need renal replacement therapy. 2. Left foot nonhealing wound status post I and D, maintained on antibiotics. 3. Urinary tract infection. Urine culture positive for E coli. 4. Acute blood loss anemia status post EGD, status post packed RBCs transfusion. No evidence of active bleeding currently. 5. Metabolic acidosis maintained on sodium bicarb, started on IV bicarb yesterday. PLAN: Continue with IV bicarb. Follow up on labs from today. Continue to avoid nephrotoxic agents and IV Lasix x1 today. MMODL / IJN: [id number] /
[2021-01-07 13:27] LABS: African American GFR (CKD) 14.8 (60.0-200.0); Albumin 2.3 g/dL (3.80-4.90); Albumin/Globulin Ratio 0.46 (1.60-3.17); Anion Gap 10.9 mmol/L (4.00-12.00); BUN/Creat Ratio 22.43 Ratio (12.00-20.00); Calcium 7.7 mg/dL (8.7-10.3); Carbon Dioxide 17.1 mmol/L (21.6-31.8); Non-African American GFR(CKD) 12.8 (60.0-200.0); Total Bilirubin 0.4 mg/dL (0.2-1.2); Total Protein 7.3 g/dL (6.2-8.2)
[2021-01-07] MEDS: DEXTROSE 5% IN WATER 1,000 ML with SODIUM BICARB (1 MEQ/ML) 150 ML IV SCH (16:40)
[2021-01-07 16:53] LABS: Glucose,Whole Blood 229 mg/dL (75-99)
[2021-01-07] MEDS: COLLAGENASE 250 UNIT/GM OINTMENT 30 GM TUBE TOPICAL SCH (17:21)
--- NOTE | 2021-01-07 18:42 | PN ---
PROGRESS NOTE DATE OF SERVICE: 01/07/2021 REASON FOR FOLLOWUP: Left big toe diabetic foot infection. INTERVAL HISTORY: The patient is currently afebrile. The patient is breathing comfortably. Denies any chest pain. No cough. No pain to the left foot. PHYSICAL EXAMINATION: Blood pressure 113/60 with a pulse of 65, temperature is 97.4. She is 95% on room air. General description is a middle-aged female lying in in no distress. Respiratory system: Unlabored breathing, clear to auscultation anteriorly. Heart S1, S2. Regular rate and rhythm. Abdomen soft, no tenderness. Left foot plantar wound with slough tissue, some surrounding swelling. No redness or drainage. LABS: Hemoglobin 7.1, white count 8.6, BUN of 83, creatinine 3.79. DIAGNOSTIC IMPRESSION AND PLAN: Patient with left diabetic foot infection with abscess status post drainage, culture multiple pathogens, patient covered with Zosyn. Will switch over to Santyl and monitor clinical course closely. MMODL / IJN: [id number] / JAMIL
[2021-01-07] MEDS: ARIPiprazole 5 MG TAB PO SCH (20:12)
[2021-01-07 20:25] LABS: Glucose,Whole Blood 218 mg/dL (75-99)
--- NOTE | 2021-01-07 20:42 | P.PN ---
Subjective Progress Note Date: 01/07/21 Principal diagnosis: Worsening acute on chronic kidney disease stage III Acute exacerbation CHF GI bleed/acute blood loss anemia/ esophageal candidiasis Osteomyelitis/abscess left foot/multiple ulcerations both lower extremities 55-year-old female answer from [facility] because of the extreme low hemoglobin. And has a hemoglobin enforce after which patient is received monitor transfusion subsequently transferred here. Patient is to 2 more units of transfusion here patient present hemoglobin is 7.0 patient did have blood in the stools which happened a few days ago denied any recent GI bleed. Patient denied any loss stools. Patient does have multiple other issues going on. Patient is mostly bedbound barely can move around patient lives with the her son who takes care of for, patient is complaining of odynophagia does have some oral thrush with blood and bloody discharge in the time. Patient has multiple ulcerations with foul-smelling discharge. Patient was started on vancomycin. Patient does have leukocytosis doesn't have any fever. Patient is also found to have pulmonary edema receiving IV Lasix patient does have bilateral lower limb edema patient had a normal ejection fraction the past. Patient is also receiving Lasix at this time. Patient was hyperkalemic as well patient is also on lisinopril patient baseline creatinine appears to be normal presently 2.03. Patient has significant superficial fungal infection in the skin folds. 01/06/2021 Patient is seen and evaluated in room at bedside and discussed with RN in great detail; concerns about significantly low urine output; patient has been placed on IV fluids per nephrology recommendations; discharge held due to worsening renal failure Vital signs are reviewed; nephrology is following for worsening acute renal injury; patient is not on any nephrotoxic agents and off diuretic therapy; renal ultrasound done and reveals no significant hydronephrosis; nephrology recommending to add bicarb and monitor renal function and electrolytes closely; recommending strict YVES monitoring; further recommendations pending repeat labs tomorrow morning ID following for left foot diabetic foot infection with underlying abscess/osteomyelitis- patient is status post drainage of abscess with culture showing MSSA and Pseudomonas with Proteus; patient remains on IV Zosyn 01/07/2021 Patient is seen and evaluated in room at bedside; patient discussed with nursing staff; no overnight events; patient continues to have markedly poor urine output Vital signs are stable with a temperature of 97.4, pulse 65, blood pressure 130/60 and SpO2 of 95% on room air Lab review reveals a white blood count of 8.6, hemoglobin 7.9 and B UN/creatinine of 83/3.79; BUN continuing to trend up with markedly decreased urine output Patient remains on IV Zosyn for left foot diabetic ulcer with abscess which is status post incision and drainage; local wound dressing with Santyl per ID recommendations Patient continues to have worsening renal function with oliguria; nephrology on board and patient received 1 dose of IV Lasix this morning for mild volume overl oad without any significant results; nephrology recommending to continue to monitor renal function with possibility of renal replacement therapy if no improvement Objective - Vital Signs Vital signs: Vital Signs Temp 97.4 F L 01/07/21 14:24 Pulse 65 01/07/21 14:24 Resp 18 01/07/21 14:24 BP 113/61 01/07/21 14:24 Pulse Ox 95 01/07/21 14:24 Intake & Output 01/06/21 01/07/21 01/07/21 18:59 06:59 18:59 Intake Total 180 150 480 Output Total 20 30 2 Balance 160 120 478 Intake: Intake, IV Titration 180 Amount Piperacillin-Tazobactam 3 100 .375 gm In Sodium Chloride 0.9% 100 ml @ 25 mls/hr IVPB Q8HR [facility] Rx# :[id number] Sodium Chloride 0.9% 1, 80 000 ml @ 0 mls/hr IV .[facility] Rx#:[id number] Oral 150 480 Output: Urine 20 30 Stool 2 Other: Voiding Method Indwelling Catheter Indwelling Catheter # Bowel Movements 3 1 - Exam GENERAL: The patient is alert and oriented x3, not in any acute distress. Obese , unkempt HEENT: Pupils are round and equally reacting to light. EOMI. No scleral icterus. No conjunctival pallor. Normocephalic, atraumatic. No pharyngeal erythema. No thyromegaly. Oral thrush CARDIOVASCULAR: S1 and S2 present. No murmurs, rubs, or gallops. PULMONARY: Chest is clear to auscultation, no wheezing or crackles. ABDOMEN: Soft, nontender, nondistended, normoactive bowel sounds. No palpable organomegaly. MUSCULOSKELETAL: No joint swelling or deformity. EXTREMITIES: No cyanosis, clubbing, extensive bilateral pedal edema with multiple ulcerations NEUROLOGICAL: Gross neurological examination did not reveal any focal deficits. SKIN: Candidial intertrigo - Labs CBC & Chem 7: 01/07/21 07:00 01/07/21 07:00 Labs: Abnormal Lab Results - Last 24 Hours (Table) 01/06/21 01/06/21 01/07/21 Range/Units 16:39 19:56 07:00 RBC 2.94 L (3.80-5.40) m/uL Hgb 7.5 L (11.4-16.0) gm/dL Hct 25.2 L (34.0-46.0) % MCHC 29.7 L (31.0-37.0) g/dL RDW 21.3 H (11.5-15.5) % Potassium (3.5-5.5) mmol/L Chloride (96-109) mmol/L Carbon Dioxide (21.6-31.8) mmol/L BUN (9.0-27.0) mg/dL Creatinine (0.6-1.5) mg/dL Est GFR (CKD-EPI)AfAm (60.0-200.0) Est GFR (CKD-EPI)NonAf (60.0-200.0) BUN/Creatinine Ratio (12.00-20.00) Ratio Glucose (70-110) mg/dL POC Glucose (mg/dL) 180 H 200 H (75-99) mg/dL Calcium (8.7-10.3) mg/dL AST (13-35) U/L Albumin (3.80-4.90) g/dL Globulin (1.6-3.3) g/dL Albumin/Globulin Ratio (1.60-3.17) g/dL 01/07/21 01/07/21 01/07/21 Range/Units 07:00 07:03 10:55 RBC (3.80-5.40) m/uL Hgb (11.4-16.0) gm/dL Hct (34.0-46.0) % MCHC (31.0-37.0) g/dL RDW (11.5-15.5) % Potassium 3.0 L (3.5-5.5) mmol/L Chloride 112 H (96-109) mmol/L Carbon Dioxide 17.1 L (21.6-31.8) mmol/L BUN 83.0 H (9.0-27.0) mg/dL Creatinine 3.7 H (0.6-1.5) mg/dL Est GFR (CKD-EPI)AfAm 14.8 L (60.0-200.0) Est GFR (CKD-EPI)NonAf 12.8 L (60.0-200.0) BUN/Creatinine Ratio 22.43 H (12.00-20.00) Ratio Glucose 163 H (70-110) mg/dL POC Glucose (mg/dL) 172 H 208 H (75-99) mg/dL Calcium 7.7 L (8.7-10.3) mg/dL AST 12 L (13-35) U/L Albumin 2.30 L (3.80-4.90) g/dL Globulin 5.0 H (1.6-3.3) g/dL Albumin/Globulin Ratio 0.46 L (1.60-3.17) g/dL Assessment and Plan Assessment: Severe anemia with recent blood loss presently not actively bleeding: Patient the will receive blood transfusion patient's hemoglobin is presently 7.00 total of 3 units of PRBC transfusion. Gastroenterology evaluted patient had an upper GI endoscopy which insurance significant abnormality. -Osteomyelitis and an abscess of the left foot multiple ulcerations of both legs. -Congestive heart failure chronic diastolic dysfunction with acute exacerbation patient will be continued on IV Lasix patient has highly elevated BNP bilateral pedal edema improved patient will be switched to to oral Lasix. -Hyperkalemia secondary to losartan and acute renal failure, losartan is being held. Patient's present potassium is 4.4. -Acute renal failure secondary to prerenal azotemia from a congestive heart failure improving with Lasix losartan will be held and patient may have chronic kidney disease stage III -Bilateral lower extremity edema with chronic venous stasis and chronic venous stasis ulcerations: Patient is on Unasyn, daptomycin. Wound Care and infectious disease lying the patient. Patient has Streptococcus cocci and MSSA in the wounds. -Leukocytosis secondary to extensive wounds and bilateral lower extremity improving Candidal intertrigo topical nystatin powder -Possible candidal esophagitis for which patient was started on IV flucanazole, her dysphagia improved -Type 2 diabetes mellitus -Hypertension -Depression -Morbid obesity - DVT prophylaxis with subcutaneous heparin
[2021-01-08] MEDS: DEXTROSE 5% IN WATER 1,000 ML with SODIUM BICARB (1 MEQ/ML) 150 ML IV SCH (04:46)
[2021-01-08 07:12] LABS: Glucose,Whole Blood 181 mg/dL (75-99)
[2021-01-08] MEDS: NON FORMULARY DRUG (Liraglutide [Victoza 2-Pak] 0.6 MG/0.1 ML Pen.Injctr) SQ SCH (08:03)
[2021-01-08] MEDS: INSULIN ASPART (NovoLOG) 100 UNIT/ML VIAL SQ SCH ×4 (08:19→22:16)
[2021-01-08] MEDS: FLUCONAZOLE 100 MG TAB PO SCH (08:20)
[2021-01-08] MEDS: PANTOPRAZOLE 40 MG TABLET PO SCH ×2 (08:20→22:17)
[2021-01-08] MEDS: DULoxetine HCL 60 MG CAPSULE.DR PO SCH ×2 (08:20→22:17)
[2021-01-08] MEDS: SODIUM BICARBONATE TAB 650 MG TAB PO SCH ×2 (08:20→22:16)
[2021-01-08] MEDS: NYSTATIN 100,000 UNIT/GM POWD 15 GM TOPICAL SCH ×3 (08:20→22:17)
[2021-01-08] MEDS: HEPARIN SODIUM,PORCINE/PF 5,000 UNIT/0.5 ML SYRINGE SQ SCH ×2 (08:20→16:17)
[2021-01-08] MEDS: GABAPENTIN 100 MG CAP PO SCH ×2 (08:20→22:17)
[2021-01-08] MEDS: COLLAGENASE 250 UNIT/GM OINTMENT 30 GM TUBE TOPICAL SCH (08:21)
[2021-01-08] MEDS: PIPERACILLIN-TAZOBACTAM 3.375 GM in SODIUM CHLORIDE 0.9% 100 ML IVPB SCH ×2 (08:21→22:17)
[2021-01-08 10:22] LABS: African American GFR (CKD) 13.1 (60.0-200.0); Anion Gap 13.9 mmol/L (4.00-12.00); BUN/Creat Ratio 19.51 Ratio (12.00-20.00); Calcium 7.6 mg/dL (8.7-10.3); Carbon Dioxide 16.1 mmol/L (21.6-31.8); Non-African American GFR(CKD) 11.3 (60.0-200.0); Potassium 2.9 mmol/L (3.5-5.5)
[2021-01-08 10:55] LABS: Basophils # (A) 0.03 X 10*3/uL (0.00-0.10); Basophils % (A) 0.3 %; Eosinophils # (A) 0.33 X 10*3/uL (0.04-0.35); Eosinophils % (A) 3.7 %; HCT 24.4 % (37.2-46.3); Lymphocytes # (A) 1.38 X 10*3/uL (0.90-5.00); Lymphocytes % (A) 15.4 %; MCH 25.2 pg (27.0-32.0); MCHC 28.7 g/dL (32.0-37.0); MCV 87.8 fL (80.0-97.0); Mean Platelet Volume 11.1 fL (9.5-12.2); Monocytes # (A) 0.61 X 10*3/uL (0.20-1.00); Monocytes % (A) 6.8 %; Neutrophils % (A) 72.6 %; Platelet Count 203 X 10*3/uL (140-440); RBC 2.78 X 10*6/uL (4.10-5.20); WBC 8.96 X 10*3/uL (4.50-10.00)
[2021-01-08 10:56] LABS: Anisocytosis (M) 2+
[2021-01-08 11:34] LABS: Glucose,Whole Blood 192 mg/dL (75-99)
--- NOTE | 2021-01-08 13:07 | PN ---
PROGRESS NOTE Patient is seen for followup for acute kidney injury. Her renal function continues to worsen with serum creatinine up to 4.1 now. The patient remains oliguric. Potassium is low at 2.9. She is maintained on a bicarb drip. Her metabolic acidosis is slightly improved. The patient has not been eating much. Her blood pressure has not been low. The UA has shown significant pyuria and patient has had E coli urinary tract infection. She is not maintained on any nephrotoxic medications at this time. PHYSICAL EXAMINATION: Blood pressure this morning 112/55, heart rate 67 per minute, she is afebrile. Examination of the heart S1, S2. Examination of the lungs, bilateral breath sounds are heard. Abdomen is obese, nontender. Examination of lower extremities shows chronic skin changes, chronic edema. Left foot is wrapped. LAB: Show sodium 139, potassium 2.9, chloride 109, CO2 16, BUN 80, creatinine 4.1, calcium 7.6 mg/dL, hemoglobin 7.0. ASSESSMENT: 1. Acute kidney injury, acute tubular necrosis, currently oliguric with progressive worsening of renal function and development of volume overload as well. The patient has been talked to regarding possible need for renal replacement therapy in the next 24-48 hours. She is agreeable if we need to proceed with it. No nephrotoxic agents on board. Continue with the Guzman catheter for now. Ultrasound does not show any evidence of hydronephrosis. 2. Left foot nonhealing wound status post I and D, maintained on antibiotics. 3. Urinary tract infection. Urine culture positive for E coli. 4. Acute blood loss anemia status post EGD and packed RBCs transfusion. No active bleeding noted currently. 5. Metabolic acidosis, currently maintained on IV bicarb. PLAN: Replace potassium. Repeat labs in a.m. Possible dialysis to be started in the next 24- 48 hours. MMODL / IJN: [id number] /
[2021-01-08] MEDS: POTASSIUM CHLORIDE ER 20 MEQ TAB.ER PO SCH ×2 (15:05→17:40)
[2021-01-08] MEDS: LACTATED RINGERS 1,000 ML IV SCH (15:05)
--- NOTE | 2021-01-08 15:41 | P.PN ---
Subjective Patient is a 55-year-old female answer from [facility] because of the extreme low hemoglobin. And has a hemoglobin enforce after which patient is received monitor transfusion subsequently transferred here. Patient is to 2 more units of transfusion here patient present hemoglobin is 7.0 patient did have blood in the stools which happened a few days ago denied any recent GI bleed. Patient denied any loss stools. Patient does have multiple other issues going on. Patient is mostly bedbound barely can move around patient lives with the her son who takes care of for, patient is complaining of odynophagia does have some oral thrush with blood and bloody discharge in the time. Patient has multiple ulcerations with foul-smelling discharge. Patient was started on vancomycin. Patient does have leukocytosis doesn't have any fever. Patient is also found to have pulmonary edema receiving IV Lasix patient does have bilateral lower limb edema patient had a normal ejection fraction the past. Patient is also receiving Lasix at this time. Patient was hyperkalemic as well patient is also on lisinopril patient baseline creatinine appears to be normal presently 2.03. Patient has significant superficial fungal infection in the skin folds. Patient is also comparing of shortness of breath. 01/01/2021 Patient is urine cultures are positive for gram-negative bacilli. Patient's hemoglobin 7.7 no more GI bleed clinically at this time. looks bit better today although still complaining of odynophagia. Patient had a left foot CT which showed abscess or osteomyelitis and Charcot-type arthropathy. Patient the will undergo incision and drainage and debridement by vascular surgery. Patient is presently on Unasyn, daptomycin and flucanazole. 01/02/2021 Patient's right pupil is constricted and not reacting left pupil is reacting to light. We'll obtain CAT scan of the head. Patient blood pressure is low normal patient is still having good urine output still has some swelling of the legs with significantly improved compared to yesterday DOWN THE LASIX TO TWICE A DAY FROM 3 TIMES A DAY DID PATIENT WILL UNDERGO UPPER GI ENDOSCOPY TODAY. 01/03/2021 Patient is having an EGD. Wound cultures is showing staph aureus beta hemolytic streptococci and culture showing E. coli. Patient had ostial myelitis and had an extensive debridement of the left foot for abscess. Patient probably will need IV antibiotics. 01/04/2021 Patient had a an EGD which didn't show any significant abnormality. Patient declined colonoscopy. Patient doesn't have any more GI bleed at this time patient has osteomyelitis, patient will need IV antibiotics and wound care patient had debridement of the left foot for an abscess. Patient is showing MSSA daptomycin was discontinued, patient is only on Unasyn at this time. Patient has streptococci, MSSA. Patient is also being covered for anaerobic bacteria with Unasyn. Case management is working on her placement to subacute rehabitation for wound care and IV antibiotics and physical therapy patient probably can be discharged to subacute rehabilitation rehab if that can be arranged by tomorrow. 01/08/2021 Patient is presently on Zosyn patient won't cultures also showing Pseudomonas at this time. Patient has MSSA as well as other gram-negative organisms. Patient to creatinine continued to get worse because of which patient was not discharged. Patient will initiate on hemodialysis. Patient's potassium is low which will be replaced. Hemoglobin is 7.01 expecting this to drop by tomorrow and will need blood transfusion at that time. Constitutional: Denied any fatigue denied any fever. Cardio vascular: denied any chest pain, palpitations Gastrointestinal denied any nausea vomiting Pulmonary: Denied any shortness of breath cough Neurologic denied any new focal deficits All inpatient medications were reviewed and appropriate changes in these m edications as dictated in the interval history and assessment and plan. Objective - Vital Signs Vital signs: Vital Signs Temp 98.1 F 01/08/21 14:00 Pulse 64 01/08/21 14:00 Resp 18 01/08/21 14:00 BP 114/69 01/08/21 14:00 Pulse Ox 92 L 01/08/21 14:00 Intake & Output 01/07/21 01/08/21 01/08/21 18:59 06:59 18:59 Intake Total 1280 Output Total 27 25 2 Balance 1253 -25 -2 Intake: IV 800 Dextrose 5% in Water 1, 800 000 ml @ 60 mls/hr IV . [id number] KASANDRA with Sodium Bicarb (1 Meq/ml) 150 ml Rx#:[id number] Oral 480 Output: Urine 25 25 Stool 2 2 Other: Voiding Method Indwelling Catheter Indwelling Catheter # Bowel Movements 2 - Exam PHYSICAL EXAMINATION: GENERAL: The patient is alert and oriented x3, not in any acute distress. Obese , unkempt HEENT: Pupils are round and equally reacting to light. EOMI. No scleral icterus. No conjunctival pallor. Normocephalic, atraumatic. No pharyngeal erythema. No thyromegaly. Oral thrush CARDIOVASCULAR: S1 and S2 present. No murmurs, rubs, or gallops. PULMONARY: Chest is clear to auscultation, no wheezing or crackles. ABDOMEN: Soft, nontender, nondistended, normoactive bowel sounds. No palpable organomegaly. MUSCULOSKELETAL: No joint swelling or deformity. EXTREMITIES: No cyanosis, clubbing, extensive bilateral pedal edema with multiple ulcerations NEUROLOGICAL: Gross neurological examination did not reveal any focal deficits. SKIN: Candidial intertrigo - Labs CBC & Chem 7: 01/08/21 06:03 01/08/21 06:03 Labs: Abnormal Lab Results - Last 24 Hours (Table) 01/07/21 01/07/21 01/08/21 Range/Units 16:33 20:23 06:03 RBC 2.78 L (4.10-5.20) X 10*6/uL Hgb 7.0 L (12.0-15.0) g/dL Hct 24.4 L (37.2-46.3) % MCH 25.2 L (27.0-32.0) pg MCHC 28.7 L (32.0-37.0) g/dL RDW 23.0 H (11.5-14.5) % Absolute Nucleated RBC 0.03 H (0.00-0.00) X 10*3/uL Immature Gran # 0.11 H (0.00-0.04) X 10*3/uL NRBC/100 WBC Diff 0.3 H (0.0-0.0) /100 WBCS Potassium (3.5-5.5) mmol/L Carbon Dioxide (21.6-31.8) mmol/L Anion Gap (4.00-12.00) mmol/L BUN (9.0-27.0) mg/dL Creatinine (0.6-1.5) mg/dL Est GFR (CKD-EPI)AfAm (60.0-200.0) Est GFR (CKD-EPI)NonAf (60.0-200.0) Glucose (70-110) mg/dL POC Glucose (mg/dL) 229 H 218 H (75-99) mg/dL Calcium (8.7-10.3) mg/dL 01/08/21 01/08/21 01/08/21 Range/Units 06:03 07:02 11:33 RBC (4.10-5.20) X 10*6/uL Hgb (12.0-15.0) g/dL Hct (37.2-46.3) % MCH (27.0-32.0) pg MCHC (32.0-37.0) g/dL RDW (11.5-14.5) % Absolute Nucleated RBC (0.00-0.00) X 10*3/uL Immature Gran # (0.00-0.04) X 10*3/uL NRBC/100 WBC Diff (0.0-0.0) /100 WBCS Potassium 2.9 L (3.5-5.5) mmol/L Carbon Dioxide 16.1 L (21.6-31.8) mmol/L Anion Gap 13.90 H (4.00-12.00) mmol/L BUN 80.0 H (9.0-27.0) mg/dL Creatinine 4.1 H (0.6-1.5) mg/dL Est GFR (CKD-EPI)AfAm 13.1 L (60.0-200.0) Est GFR (CKD-EPI)NonAf 11.3 L (60.0-200.0) Glucose 166 H (70-110) mg/dL POC Glucose (mg/dL) 181 H 192 H (75-99) mg/dL Calcium 7.6 L (8.7-10.3) mg/dL Assessment and Plan Plan: Severe anemia with recent blood loss presently not actively bleeding: Patient the will receive blood transfusion patient's hemoglobin is presently 7.00 total of 3 units of PRBC transfusion. Gastroenterology evaluted patient had an upper GI endoscopy which insurance significant abnormality. -Osteomyelitis and an abscess of the left foot multiple ulcerations of both legs. -Congestive heart failure chronic diastolic dysfunction with acute exacerbation patient will be continued on IV Lasix patient has highly elevated BNP bilateral pedal edema improved patient was given a dose of IV Lasix. Patient continues to have renal dysfunction. -Hyperkalemia secondary to losartan and acute renal failure, losartan is being held. Patient's present potassium is 4.4. -Acute renal failure secondary to possibly acute tubular necrosis presently oliguric. Patient initially had prerenal azotemia secondary to volume overload. Patient will need renal replacement therapy/hemodialysis at -Bilateral lower extremity edema with chronic venous stasis and chronic venous stasis ulcerations: Patient is on Unasyn, daptomycin. Wound Care and infectious disease lying the patient. Patient has Streptococcus cocci and MSSA in the wounds. -Leukocytosis secondary to extensive wounds and bilateral lower extremity improving Candidal intertrigo topical nystatin powder -Possible candidal esophagitis , dysphagia improved with the flucanazole patient is presently on flucanazole -Type 2 diabetes mellitus -Hypertension -Depression -Morbid obesity - DVT prophylaxis with subcutaneous heparin
[2021-01-08 17:00] LABS: Glucose,Whole Blood 291 mg/dL (75-99)
[2021-01-08 21:27] LABS: Glucose,Whole Blood 230 mg/dL (75-99)
[2021-01-08] MEDS: ARIPiprazole 5 MG TAB PO SCH (22:17)
[2021-01-08 22:59] LABS: Hepatitis B Surface AB- Quant <3.5 mIU/mL; Hepatitis B Surface Antibody Non-Reactive (Non-Reactive); Hepatitis B Surface Antigen Non-Reactive (Non-Reactive)
--- NOTE | 2021-01-09 00:19 | PN ---
PROGRESS NOTE DATE OF SERVICE: 01/08/2021 REASON FOR FOLLOWUP: Left diabetic foot infection. INTERVAL HISTORY: The patient is currently afebrile. The patient is breathing comfortably. Denies any chest pain or cough. No nausea, vomiting, abdominal pain or pain to the left foot. PHYSICAL EXAMINATION: Blood pressure 114/69 with a pulse of 64, temperature 98.1. She is 92% on room air. General description: The patient is a middle-aged female lying in in no distress. Respiratory system: Unlabored breathing, clear to auscultation anteriorly. Heart S1, S2. Regular rate and rhythm. Abdomen soft, no tenderness. Left foot is currently dressed up. No drainage on the dressing. LABS: Hemoglobin 7, white count 8.9, BUN of 88, creatinine 4.1. DIAGNOSTIC IMPRESSION AND PLAN: Patient with left diabetic foot infection with abscess status post drainage culture multiple pathogen. Patient is covered with Zosyn. Local care to continue with Santyl and did have worsening of her kidney function and being monitored closely by Nephrology. Continue supportive care. MMODL / IJN: [id number] /
[2021-01-09] MEDS: HEPARIN SODIUM,PORCINE/PF 5,000 UNIT/0.5 ML SYRINGE SQ SCH ×3 (00:56→17:19)
[2021-01-09] MEDS: DEXTROSE 5% IN WATER 1,000 ML with SODIUM BICARB (1 MEQ/ML) 150 ML IV SCH ×2 (00:57→13:19)
[2021-01-09 07:14] LABS: Glucose,Whole Blood 182 mg/dL (75-99)
[2021-01-09] MEDS: NON FORMULARY DRUG (Liraglutide [Victoza 2-Pak] 0.6 MG/0.1 ML Pen.Injctr) SQ SCH (07:54)
[2021-01-09] MEDS: FLUCONAZOLE 100 MG TAB PO SCH (07:59)
[2021-01-09] MEDS: DULoxetine HCL 60 MG CAPSULE.DR PO SCH ×2 (07:59→20:20)
[2021-01-09] MEDS: PANTOPRAZOLE 40 MG TABLET PO SCH ×2 (07:59→20:20)
[2021-01-09] MEDS: GABAPENTIN 100 MG CAP PO SCH ×2 (07:59→20:20)
[2021-01-09] MEDS: SODIUM BICARBONATE TAB 650 MG TAB PO SCH ×2 (07:59→20:20)
[2021-01-09] MEDS: INSULIN ASPART (NovoLOG) 100 UNIT/ML VIAL SQ SCH ×4 (07:59→21:53)
[2021-01-09] MEDS: PIPERACILLIN-TAZOBACTAM 3.375 GM in SODIUM CHLORIDE 0.9% 100 ML IVPB SCH ×2 (07:59→20:20)
[2021-01-09] MEDS: NYSTATIN 100,000 UNIT/GM POWD 15 GM TOPICAL SCH ×3 (08:00→20:21)
[2021-01-09] MEDS: COLLAGENASE 250 UNIT/GM OINTMENT 30 GM TUBE TOPICAL SCH (08:00)
[2021-01-09] MEDS ORDERED: FUROSEMIDE 10 MG/ML 10 ML VIAL IV STA (09:40)
[2021-01-09 10:15] LABS: HGB 7.2 g/dL (12.0-15.0); MCH 25.1 pg (27.0-32.0); MCHC 28.8 g/dL (32.0-37.0); MCV 87.1 fL (80.0-97.0); Mean Platelet Volume 11.4 fL (9.5-12.2); Platelet Count 194 X 10*3/uL (140-440); RBC 2.87 X 10*6/uL (4.10-5.20); RDW 23.5 % (11.5-14.5); WBC 9.74 X 10*3/uL (4.50-10.00)
[2021-01-09 11:04] LABS: African American GFR (CKD) 11.4 (60.0-200.0); Anion Gap 12.3 mmol/L (4.00-12.00); BUN/Creat Ratio 18.48 Ratio (12.00-20.00); Calcium 7.3 mg/dL (8.7-10.3); Carbon Dioxide 18.7 mmol/L (21.6-31.8); Non-African American GFR(CKD) 9.8 (60.0-200.0); Potassium 2.9 mmol/L (3.5-5.5)
[2021-01-09] MEDS ORDERED: POTASSIUM CHLORIDE ER 20 MEQ TAB.ER PO STA (11:16)
[2021-01-09 11:22] LABS: Glucose,Whole Blood 203 mg/dL (75-99)
[2021-01-09] MEDS ORDERED: DARBEPOETIN ALFA 60 MCG/0.3 ML SYRINGE SQ SCH (11:30)
--- NOTE | 2021-01-09 13:06 | PN ---
PROGRESS NOTE Patient is seen for followup for acute kidney injury. Patient has had worsening renal function with serum creatinine now at about 4.6 mg/dL. She has not had any significant urine output. Currently no nephrotoxic agents on board. I have discussed with the patient regarding starting dialysis and she is agreeable when indicated. She remains with decreased oral intake. No significant chest pains or shortness of breath. PHYSICAL EXAMINATION: On examination today, blood pressure 145/71, heart rate 59 per minute. She is afebrile. Examination of the heart S1, S2. Examination of the lungs, bilateral breath sounds are heard. Decreased breath sounds at bases. Abdomen is soft. Morbidly obese. Examination of lower extremities shows edema 1+ bilaterally. [employer] exam grossly intact. Patient is lethargic. LAB: Show sodium 140, potassium 2.9, BUN 85, creatinine 4.6, hemoglobin 7.2 g/dL. ASSESSMENT: 1. Acute kidney injury most likely acute tubular necrosis with progressive renal failure. Patient is oliguric. I will have the nurse change the Guzman catheter and we will proceed with vascular surgery consult and plan for dialysis tomorrow. 2. Hypokalemia, we will replace cautiously. 3. Urinary tract infection. Urine culture positive for E coli. 4. Acute blood loss anemia status post EGD and packed RBCs transfusion. 5. Metabolic acidosis currently maintained on IV bicarb. 6. Left foot nonhealing wound status post I and D and maintained on antibiotics. PLAN: Proceed with vascular surgery consult for dialysis catheter placement. Change Guzman catheter. Replace potassium and repeat labs in a.m. MMODL / IJN: [id number] /
--- NOTE | 2021-01-09 15:38 | P.PN ---
Subjective Progress Note Date: 01/09/21 Patient is a 55-year-old female answer from [facility] because of the extreme low hemoglobin. And has a hemoglobin enforce after which patient is received monitor transfusion subsequently transferred here. Patient is to 2 more units of transfusion here patient present hemoglobin is 7.0 patient did have blood in the stools which happened a few days ago denied any recent GI bleed. Patient denied any loss stools. Patient does have multiple other issues going on. Patient is mostly bedbound barely can move around patient lives with the her son who takes care of for, patient is complaining of odynophagia does have some oral thrush with blood and bloody discharge in the time. Patient has multiple ulcerations with foul-smelling discharge. Patient was started on vancomycin. Patient does have leukocytosis doesn't have any fever. Patient is also found to have pulmonary edema receiving IV Lasix patient does have bilateral lower limb edema patient had a normal ejection fraction the past. Patient is also receiving Lasix at this time. Patient was hyperkalemic as well patient is also on lisinopril patient baseline creatinine appears to be normal presently 2.03. Patient has significant superficial fungal infection in the skin folds. Patient is also comparing of shortness of breath. 01/01/2021 Patient is urine cultures are positive for gram-negative bacilli. Patient's hemoglobin 7.7 no more GI bleed clinically at this time. looks bit better today although still complaining of odynophagia. Patient had a left foot CT which showed abscess or osteomyelitis and Charcot-type arthropathy. Patient the will undergo incision and drainage and debridement by vascular surgery. Patient is presently on Unasyn, daptomycin and flucanazole. 01/02/2021 Patient's right pupil is constricted and not reacting left pupil is reacting to light. We'll obtain CAT scan of the head. Patient blood pressure is low normal patient is still having good urine output still has some swelling of the legs with significantly improved compared to yesterday DOWN THE LASIX TO TWICE A DAY FROM 3 TIMES A DAY DID PATIENT WILL UNDERGO UPPER GI ENDOSCOPY TODAY. 01/03/2021 Patient is having an EGD. Wound cultures is showing staph aureus beta hemolytic streptococci and culture showing E. coli. Patient had ostial myelitis and had an extensive debridement of the left foot for abscess. Patient probably will need IV antibiotics. 01/04/2021 Patient had a an EGD which didn't show any significant abnormality. Patient declined colonoscopy. Patient doesn't have any more GI bleed at this time patient has osteomyelitis, patient will need IV antibiotics and wound care patient had debridement of the left foot for an abscess. Patient is showing MSSA daptomycin was discontinued, patient is only on Unasyn at this time. Patient has streptococci, MSSA. Patient is also being covered for anaerobic bacteria with Unasyn. Case management is working on her placement to subacute rehabitation for wound care and IV antibiotics and physical therapy patient probably can be discharged to subacute rehabilitation rehab if that can be arranged by tomorrow. 01/08/2021 Patient is presently on Zosyn patient won't cultures also showing Pseudomonas at this time. Patient has MSSA as well as other gram-negative organisms. Patient to creatinine continued to get worse because of which patient was not discharged. Patient will initiate on hemodialysis. Patient's potassium is low which will be replaced. Hemoglobin is 7.01 expecting this to drop by tomorrow and will need blood transfusion at that time. 01/09/2021 Patient is seen and evaluated and follow-up with no acute overnight issues. Patient is noted to have bilateral leg wounds with cultures showing beta hemolytic strep group C along with Staphylococcus aureus and patient is maintained on IV Zosyn with infectious disease and wound care following. Patient has received a PICC line and will likely require IV antibiotic therapy and the outpatient setting. Patient's potassium found to be 2.9 today and will replace per protocol and repeat labs. Creatinine is 4.6 and BUN is 85 and nephrology following an consult has been placed with Dr. Mcdonald for dialysis catheter placement. Hemoglobin is 7.2 today and will monitor closely and transfuse if less than 7. Social work also following as patient will be going to [facility] once stabilized and discharged Constitutional: Denied any fatigue denied any fever. Cardio vascular: denied any chest pain, palpitations Gastrointestinal denied any nausea vomiting Pulmonary: Denied any shortness of breath cough Neurologic denied any new focal deficits All inpatient medications were reviewed and appropriate changes in these medications as dictated in the interval history and assessment and plan. Objective - Vital Signs Vital signs: Vital Signs Temp 98.0 F 01/09/21 08:00 Pulse 59 L 01/09/21 08:00 Resp 16 01/09/21 08:00 BP 145/71 06/01/21 08:00 Pulse Ox 93 L 01/09/21 08:00 Intake & Output 01/08/21 01/09/21 01/09/21 18:59 06:59 18:59 Intake Total 200 Output Total 2 151 102 Balance -2 -151 98 Intake: Oral 200 Output: Urine 150 100 Stool 2 1 2 Other: Voiding Method Indwelling Catheter Indwelling Catheter Indwelling Catheter # Bowel Movements 2 1 - Exam GENERAL: The patient is alert and oriented x3, not in any acute distress. Obese , unkempt HEENT: Pupils are round and equally reacting to light. EOMI. No scleral icterus. No conjunctival pallor. Normocephalic, atraumatic. No pharyngeal erythema. No thyromegaly. Oral thrush CARDIOVASCULAR: S1 and S2 present. No murmurs, rubs, or gallops. PULMONARY: Chest is clear to auscultation, no wheezing or crackles. ABDOMEN: Soft, nontender, nondistended, normoactive bowel sounds. No palpable organomegaly. MUSCULOSKELETAL: No joint swelling or deformity. EXTREMITIES: No cyanosis, clubbing, extensive bilateral pedal edema with multiple ulcerations NEUROLOGICAL: Gross neurological examination did not reveal any focal deficits. SKIN: Candidial intertrigo - Labs CBC & Chem 7: 01/09/21 05:38 01/09/21 05:38 Labs: Abnormal Lab Results - Last 24 Hours (Table) 01/08/21 01/08/21 01/09/21 Range/Units 16:55 21:25 05:38 RBC 2.87 L (4.10-5.20) X 10*6/uL Hgb 7.2 L (12.0-15.0) g/dL Hct 25.0 L (37.2-46.3) % MCH 25.1 L (27.0-32.0) pg MCHC 28.8 L (32.0-37.0) g/dL RDW 23.5 H (11.5-14.5) % Absolute Nucleated RBC 0.02 H (0.00-0.00) X 10*3/uL NRBC/100 WBC Diff 0.2 H (0.0-0.0) /100 WBCS Potassium (3.5-5.5) mmol/L Carbon Dioxide (21.6-31.8) mmol/L Anion Gap (4.00-12.00) mmol/L BUN (9.0-27.0) mg/dL Creatinine (0.6-1.5) mg/dL Est GFR (CKD-EPI)AfAm (60.0-200.0) Est GFR (CKD-EPI)NonAf (60.0-200.0) Glucose (70-110) mg/dL POC Glucose (mg/dL) 291 H 230 H (75-99) mg/dL Calcium (8.7-10.3) mg/dL 01/09/21 01/09/21 01/09/21 Range/Units 05:38 07:12 11:20 RBC (4.10-5.20) X 10*6/uL Hgb (12.0-15.0) g/dL Hct (37.2-46.3) % MCH (27.0-32.0) pg MCHC (32.0-37.0) g/dL RDW (11.5-14.5) % Absolute Nucleated RBC (0.00-0.00) X 10*3/uL NRBC/100 WBC Diff (0.0-0.0) /100 WBCS Potassium 2.9 L (3.5-5.5) mmol/L Carbon Dioxide 18.7 L (21.6-31.8) mmol/L Anion Gap 12.30 H (4.00-12.00) mmol/L BUN 85.0 H (9.0-27.0) mg/dL Creatinine 4.6 H (0.6-1.5) mg/dL Est GFR (CKD-EPI)AfAm 11.4 L (60.0-200.0) Est GFR (CKD-EPI)NonAf 9.8 L (60.0-200.0) Glucose 154 H (70-110) mg/dL POC Glucose (mg/dL) 182 H 203 H (75-99) mg/dL Calcium 7.3 L (8.7-10.3) mg/dL Assessment and Plan Assessment: -Severe anemia with recent blood loss presently not actively bleeding: Patient has received a total of 3 units of PRBC transfusion. Hemoglobin today is 7.2 and will monitor closely and may likely need another unit of PRBCs if hemoglobin is 7 or less. -upper GI endoscopy which showed no significant abnormality. And colonoscopy was deferred and may consider outpatient with GI -Osteomyelitis and an abscess of the left foot multiple ulcerations of both legs. -Congestive heart failure chronic diastolic dysfunction with acute exacerbation also has highly elevated BNP, bilateral pedal edema improved. Patient continues to have renal dysfunction. -Hyperkalemia secondary to losartan and acute renal failure, losartan is being held. Patient's present potassium is 2.9 and will replace per protocol and repeat labs and monitor closely -Acute renal failure secondary to possibly acute tubular necrosis presently oliguric. Patient initially had prerenal azotemia secondary to volume overload. Patient will need renal replacement therapy/hemodialysis. Nephrology following and consult being placed to Dr. Mcdonald for hemodialysis catheter placement -Bilateral lower extremity edema with chronic venous stasis and chronic venous stasis ulcerations: Patient is on Zosyn. Wound Care and infectious disease are following. Patient has beta hemolytic strep group C and Staphylococcus aureus in the wounds. -Leukocytosis secondary to extensive wounds and bilateral lower extremity, improving -Candidal intertrigo; continue with topical nystatin powder -Possible candidal esophagitis , dysphagia improved with the flucanazole; patient is presently on flucanazole and will continue at this time -Type 2 diabetes mellitus -Hypertension -Depression -Morbid obesity -DVT prophylaxis with subcutaneous heparin Plan: Continue with current IV antibiotics and current medications. Patient is main tained on sodium bicarb drip along with sodium bicarb tablets and will continue. Patient is status post debridement of the wounds and will continue local wound care with infectious disease following. Patient has received a PICC line. Patient continues to have renal failure and nephrology is following and planning on starting dialysis and a consult was placed again for Dr. Mcdonald for hemodialysis port cath placement which is pending at this time. Nursing staff states she will receive a dialysis catheter in the morning. Social work also following as patient will be needing placement and will be going to [facility] once stabilized discharge.
[2021-01-09 16:55] LABS: Glucose,Whole Blood 241 mg/dL (75-99)
[2021-01-09] MEDS: LACTATED RINGERS 1,000 ML IV SCH (17:14)
[2021-01-09] MEDS: ARIPiprazole 5 MG TAB PO SCH (20:20)
[2021-01-09 21:09] LABS: Glucose,Whole Blood 277 mg/dL (75-99)
[2021-01-10 03:51] LABS: Glucose,Whole Blood 212 mg/dL (75-99)
--- NOTE | 2021-01-10 05:31 | PN ---
PROGRESS NOTE DATE OF SERVICE: 01/09/2021 REASON FOR FOLLOWUP: Left diabetic foot infection. INTERVAL HISTORY: The patient is afebrile. The patient is breathing comfortably. The patient denies having any chest pain, shortness of breath or cough. No abdominal pain or any worsening pain to the left foot. PHYSICAL EXAMINATION: Blood pressure is 145/69, pulse 80, temperature 97.4. She is 91% on room air. General description is a middle-aged female lying in in no distress. Respiratory system: Unlabored breathing. Clear to auscultation anteriorly. Heart S1, S2. Regular rate and rhythm. Abdomen soft, no tenderness. Left foot is currently dressed up. No obvious drainage on the dressing. LABS: Hemoglobin 7.2, white count 9.4, BUN of 85, creatinine 4.6. DIAGNOSTIC IMPRESSION AND PLAN: Patient with left diabetic foot infection with an abscess status post drainage. Culture with multiple pathogens. The patient covered with Zosyn, now with evidence of worsening renal failure, being followed by Nephrology. Continue with Zosyn. Local wound care with Santyl and monitor clinical course closely. Continue supportive care. MMODL / IJN: [id number] /
[2021-01-10 06:57] LABS: Glucose,Whole Blood 212 mg/dL (75-99)
--- NOTE | 2021-01-10 07:06 | P.GSCN ---
History of Present Illness History of present illness: 56-year-old white female, patient has a creatinine of 4.6 with no urine output patient to had a foot debridement in the past I was consulted for placement of a dialysis catheter. Neck examination neck is supple no bruit appreciated Chest crackles bilateral Abdomen nontender femorals are 1+ bilaterally patient has a wound on the plantar aspect the foot for local wound care Plan is placement of dialysis catheter risk and complication discussed Past Medical History Past Medical History: Heart Failure, Diabetes Mellitus, GERD/Reflux, Hypertensi on, Osteoarthritis (OA) Additional Past Medical History / Comment(s): Depression, Super morbid obesity, Newly diagnosed HF, Neuropathy bilateral legs, Partial small bowel resection with ventral hernia incarceration,-Type 2 diabetes mellitus,-Gastro-Esophageal reflux disease,Hypertension. Chronic venous stasis with dermatosis and pedal edema chronic, enterobacter and enterococal wound infection 2018 History of Any Multi-Drug Resistant Organisms: None Reported Past Surgical History: Section, Cholecystectomy, Hernia Repair, Hysterectomy Past Anesthesia/Blood Transfusion Reactions: No Reported Reaction Past Psychological History: Depression Smoking Status: Former smoker Past Alcohol Use History: None Reported Past Drug Use History: None Reported - Past Family History Mother Family Medical History: Myocardial Infarction ([place]) Father Family Medical History: Cancer Medications and Allergies Home Medications Medication Instructions Recorded Confirmed Type ARIPiprazole [Abilify] 5 mg PO HS 01/29/18 12/31/20 History DULoxetine HCL [Cymbalta] 60 mg PO BID 01/29/18 12/31/20 History Pravastatin Sodium [Pravachol] 20 mg PO HS 01/29/18 12/31/20 History lisinopriL [Zestril] 10 mg PO DAILY 01/29/18 12/31/20 History metFORMIN HCL [Glucophage] 1,000 mg PO BID@0900,1700 05/15/20 12/31/20 History ALPRAZolam [Xanax] 0.5 mg PO BID 12/31/20 12/31/20 History Allopurinol [Zyloprim] 300 mg PO DAILY 12/31/20 12/31/20 History Furosemide [Lasix] 40 mg PO BID 12/31/20 12/31/20 History Ibuprofen [Motrin] 800 mg PO DAILY 12/31/20 12/31/20 History Liraglutide [Victoza 2-Brenden] 1.8 mg SQ DAILY 12/31/20 12/31/20 History Ondansetron [Zofran] 4 mg PO Q8H PRN 12/31/20 12/31/20 History Fluconazole [Diflucan] 100 mg PO DAILY #14 tab 01/05/21 Rx Gabapentin 300 mg PO BID #6 cap 01/05/21 Rx Pantoprazole [Protonix] 40 mg PO BID #60 tablet. 01/05/21 Rx Piperacillin-Tazobactam [Zosyn] 3.375 gm IVPB Q8HR #120 bag 01/05/21 Rx Sodium Bicarbonate Tab 1,300 mg PO BID #60 tab 01/05/21 Rx Allergies Allergy/AdvReac Type Severity Reaction Status Date / Time cephalexin monohydrate AdvReac Nausea & Verified 12/06/19 18:32 [From Keflex] Vomiting Surgical - Exam Vital Signs Temp Pulse Resp BP Pulse Ox 97.7 F 96 25 H 138/58 98 12/30/20 21:41 12/30/20 21:41 12/30/20 21:41 12/30/20 21:41 12/30/20 21:41 Results - Labs 01/09/21 05:38 01/09/21 05:38 Abnormal Lab Results - Last 24 Hours (Table) 01/09/21 01/09/21 01/09/21 Range/Units 05:38 05:38 07:12 RBC 2.87 L (4.10-5.20) X 10*6/uL Hgb 7.2 L (12.0-15.0) g/dL Hct 25.0 L (37.2-46.3) % MCH 25.1 L (27.0-32.0) pg MCHC 28.8 L (32.0-37.0) g/dL RDW 23.5 H (11.5-14.5) % Absolute Nucleated RBC 0.02 H (0.00-0.00) X 10*3/uL NRBC/100 WBC Diff 0.2 H (0.0-0.0) /100 WBCS Potassium 2.9 L (3.5-5.5) mmol/L Carbon Dioxide 18.7 L (21.6-31.8) mmol/L Anion Gap 12.30 H (4.00-12.00) mmol/L BUN 85.0 H (9.0-27.0) mg/dL Creatinine 4.6 H (0.6-1.5) mg/dL Est GFR (CKD-EPI)AfAm 11.4 L (60.0-200.0) Est GFR (CKD-EPI)NonAf 9.8 L (60.0-200.0) Glucose 154 H (70-110) mg/dL POC Glucose (mg/dL) 182 H (75-99) mg/dL Calcium 7.3 L (8.7-10.3) mg/dL 01/09/21 01/09/21 01/09/21 Range/Units 11:20 16:54 21:07 RBC (4.10-5.20) X 10*6/uL Hgb (12.0-15.0) g/dL Hct (37.2-46.3) % MCH (27.0-32.0) pg MCHC (32.0-37.0) g/dL RDW (11.5-14.5) % Absolute Nucleated RBC (0.00-0.00) X 10*3/uL NRBC/100 WBC Diff (0.0-0.0) /100 WBCS Potassium (3.5-5.5) mmol/L Carbon Dioxide (21.6-31.8) mmol/L Anion Gap (4.00-12.00) mmol/L BUN (9.0-27.0) mg/dL Creatinine (0.6-1.5) mg/dL Est GFR (CKD-EPI)AfAm (60.0-200.0) Est GFR (CKD-EPI)NonAf (60.0-200.0) Glucose (70-110) mg/dL POC Glucose (mg/dL) 203 H 241 H 277 H (75-99) mg/dL Calcium (8.7-10.3) mg/dL 01/10/21 01/10/21 Range/Units 03:49 06:55 RBC (4.10-5.20) X 10*6/uL Hgb (12.0-15.0) g/dL Hct (37.2-46.3) % MCH (27.0-32.0) pg MCHC (32.0-37.0) g/dL RDW (11.5-14.5) % Absolute Nucleated RBC (0.00-0.00) X 10*3/uL NRBC/100 WBC Diff (0.0-0.0) /100 WBCS Potassium (3.5-5.5) mmol/L Carbon Dioxide (21.6-31.8) mmol/L Anion Gap (4.00-12.00) mmol/L BUN (9.0-27.0) mg/dL Creatinine (0.6-1.5) mg/dL Est GFR (CKD-EPI)AfAm (60.0-200.0) Est GFR (CKD-EPI)NonAf (60.0-200.0) Glucose (70-110) mg/dL POC Glucose (mg/dL) 212 H 212 H (75-99) mg/dL Calcium (8.7-10.3) mg/dL Diabetes panel 01/09/21 Range/Units 05:38 Sodium 140 (135-145) mmol/L Potassium 2.9 L (3.5-5.5) mmol/L Chloride 109 (96-109) mmol/L Carbon Dioxide 18.7 L (21.6-31.8) mmol/L BUN 85.0 H (9.0-27.0) mg/dL Creatinine 4.6 H (0.6-1.5) mg/dL Glucose 154 H (70-110) mg/dL Calcium 7.3 L (8.7-10.3) mg/dL Calcium panel 01/09/21 Range/Units 05:38 Calcium 7.3 L (8.7-10.3) mg/dL Pituitary panel 01/09/21 Range/Units 05:38 Sodium 140 (135-145) mmol/L Potassium 2.9 L (3.5-5.5) mmol/L Chloride 109 (96-109) mmol/L Carbon Dioxide 18.7 L (21.6-31.8) mmol/L BUN 85.0 H (9.0-27.0) mg/dL Creatinine 4.6 H (0.6-1.5) mg/dL Glucose 154 H (70-110) mg/dL Calcium 7.3 L (8.7-10.3) mg/dL Adrenal panel 01/09/21 Range/Units 05:38 Sodium 140 (135-145) mmol/L Potassium 2.9 L (3.5-5.5) mmol/L Chloride 109 (96-109) mmol/L Carbon Dioxide 18.7 L (21.6-31.8) mmol/L BUN 85.0 H (9.0-27.0) mg/dL Creatinine 4.6 H (0.6-1.5) mg/dL Glucose 154 H (70-110) mg/dL Calcium 7.3 L (8.7-10.3) mg/dL
[2021-01-10] MEDS ORDERED: MIDAZOLAM 2 MG/2 ML VIAL IV ONE (07:43)
[2021-01-10] MEDS ORDERED: IV FLUID CONTINUATION 200 ML IV ONE (07:43)
[2021-01-10] MEDS: HEPARIN SODIUM,PORCINE/PF 5,000 UNIT/0.5 ML SYRINGE SQ SCH ×2 (09:15→12:05)
[2021-01-10] MEDS: NON FORMULARY DRUG (Liraglutide [Victoza 2-Pak] 0.6 MG/0.1 ML Pen.Injctr) SQ SCH (09:15)
[2021-01-10] MEDS: PIPERACILLIN-TAZOBACTAM 3.375 GM in SODIUM CHLORIDE 0.9% 100 ML IVPB SCH ×2 (09:29→20:04)
[2021-01-10] MEDS: PANTOPRAZOLE 40 MG TABLET PO SCH ×2 (09:31→20:03)
[2021-01-10] MEDS: FLUCONAZOLE 100 MG TAB PO SCH (09:31)
[2021-01-10] MEDS: DULoxetine HCL 60 MG CAPSULE.DR PO SCH ×2 (09:31→20:03)
[2021-01-10] MEDS: INSULIN ASPART (NovoLOG) 100 UNIT/ML VIAL SQ SCH ×4 (09:31→21:42)
[2021-01-10] MEDS: SODIUM BICARBONATE TAB 650 MG TAB PO SCH ×2 (09:31→20:03)
[2021-01-10] MEDS: HYDROcodone/APAP 5-325MG 1 EACH TAB PO PRN (09:32)
[2021-01-10] MEDS: COLLAGENASE 250 UNIT/GM OINTMENT 30 GM TUBE TOPICAL SCH (09:34)
[2021-01-10] MEDS: GABAPENTIN 100 MG CAP PO SCH ×2 (09:34→20:03)
[2021-01-10] MEDS: NYSTATIN 100,000 UNIT/GM POWD 15 GM TOPICAL SCH ×3 (09:35→20:04)
[2021-01-10 11:33] LABS: Glucose,Whole Blood 185 mg/dL (75-99)
[2021-01-10 12:13] LABS: Anisocytosis Moderate; Basophils % (A) 0 %; Eosinophils # (A) 0.3 k/uL (0-0.7); Eosinophils % (A) 3 %; HCT 24.7 % (34.0-46.0); HGB 7.4 gm/dL (11.4-16.0); Hypochromasia Marked; Lymphocytes # (A) 1.1 k/uL (1.0-4.8); Lymphocytes % (A) 12 %; MCH 25.3 pg (25.0-35.0); MCHC 29.9 g/dL (31.0-37.0); MCV 84.5 fL (80.0-100.0); Mean Platelet Volume 9.1; Microcytosis Slight; Monocytes # (A) 0.5 k/uL (0-1.0); Monocytes % (A) 5 %; Neutrophils % (A) 78 %; Platelet Count 161 k/uL (150-450); Poikilocytosis Moderate; RBC 2.92 m/uL (3.80-5.40); RDW 22.8 % (11.5-15.5); WBC 9.1 k/uL (3.8-10.6)
[2021-01-10 12:21] LABS: African American GFR (CKD) 14 (>60 ml/min/1.73 sqM); Anion Gap 10 mmol/L; Blood Urea Nitrogen 70 mg/dL (7-17); Calcium 7.9 mg/dL (8.4-10.2); Carbon Dioxide 22 mmol/L (22-30); Chloride 111 mmol/L (98-107); Glucose 168 mg/dL (74-99); Non-African American GFR(CKD) 12 (>60 ml/min/1.73 sqM); Sodium 143 mmol/L (137-145)
[2021-01-10 12:43] LABS: Potassium 2.5 mmol/L (3.5-5.1)
[2021-01-10] MEDS ORDERED: Potassium Replacement Protocol 1 EACH MISC MISCELLANE PRN (13:12)
--- NOTE | 2021-01-10 13:18 | P.PN ---
Subjective Patient is a 55-year-old female answer from [facility] because of the extreme low hemoglobin. And has a hemoglobin enforce after which patient is received monitor transfusion subsequently transferred here. Patient is to 2 more units of transfusion here patient present hemoglobin is 7.0 patient did have blood in the stools which happened a few days ago denied any recent GI bleed. Patient denied any loss stools. Patient does have multiple other issues going on. Patient is mostly bedbound barely can move around patient lives with the her son who takes care of for, patient is complaining of odynophagia does have some oral thrush with blood and bloody discharge in the time. Patient has multiple ulcerations with foul-smelling discharge. Patient was started on vancomycin. Patient does have leukocytosis doesn't have any fever. Patient is also found to have pulmonary edema receiving IV Lasix patient does have bilateral lower limb edema patient had a normal ejection fraction the past. Patient is also receiving Lasix at this time. Patient was hyperkalemic as well patient is also on lisinopril patient baseline creatinine appears to be normal presently 2.03. Patient has significant superficial fungal infection in the skin folds. Patient is also comparing of shortness of breath. 01/01/2021 Patient is urine cultures are positive for gram-negative bacilli. Patient's hemoglobin 7.7 no more GI bleed clinically at this time. looks bit better today although still complaining of odynophagia. Patient had a left foot CT which showed abscess or osteomyelitis and Charcot-type arthropathy. Patient the will undergo incision and drainage and debridement by vascular surgery. Patient is presently on Unasyn, daptomycin and flucanazole. 01/02/2021 Patient's right pupil is constricted and not reacting left pupil is reacting to light. We'll obtain CAT scan of the head. Patient blood pressure is low normal patient is still having good urine output still has some swelling of the legs with significantly improved compared to yesterday DOWN THE LASIX TO TWICE A DAY FROM 3 TIMES A DAY DID PATIENT WILL UNDERGO UPPER GI ENDOSCOPY TODAY. 01/03/2021 Patient is having an EGD. Wound cultures is showing staph aureus beta hemolytic streptococci and culture showing E. coli. Patient had ostial myelitis and had an extensive debridement of the left foot for abscess. Patient probably will need IV antibiotics. 01/04/2021 Patient had a an EGD which didn't show any significant abnormality. Patient declined colonoscopy. Patient doesn't have any more GI bleed at this time patient has osteomyelitis, patient will need IV antibiotics and wound care patient had debridement of the left foot for an abscess. Patient is showing MSSA daptomycin was discontinued, patient is only on Unasyn at this time. Patient has streptococci, MSSA. Patient is also being covered for anaerobic bacteria with Unasyn. Case management is working on her placement to subacute rehabitation for wound care and IV antibiotics and physical therapy patient probably can be discharged to subacute rehabilitation rehab if that can be arranged by tomorrow. 01/08/2021 Patient is presently on Zosyn patient won't cultures also showing Pseudomonas at this time. Patient has MSSA as well as other gram-negative organisms. Patient to creatinine continued to get worse because of which patient was not discharged. Patient will initiate on hemodialysis. Patient's potassium is low which will be replaced. Hemoglobin is 7.01 expecting this to drop by tomorrow and will need blood transfusion at that time. 01/09/2021 Patient is seen and evaluated and follow-up with no acute overnight issues. Patient is noted to have bilateral leg wounds with cultures showing beta hemolytic strep group C along with Staphylococcus aureus and patient is maintained on IV Zosyn with infectious disease and wound care following. Patient has received a PICC line and will likely require IV antibiotic therapy and the outpatient setting. Patient's potassium found to be 2.9 today and will replace per protocol and repeat labs. Creatinine is 4.6 and BUN is 85 and nephrology following an consult has been placed with Dr. Mcdonald for dialysis catheter placement. Hemoglobin is 7.2 today and will monitor closely and transfuse if less than 7. Social work also following as patient will be going to [facility] once stabilized and discharged. 01/10/2021 The patient was unable to get catheter for dialysis. Patient didn't undergo dialysis patient to hopefully can get dialysis done today after hemodialysis catheter placement today. Her potassium is low which will be replaced. Constitutional: Denied any fatigue denied any fever. Cardio vascular: denied any chest pain, palpitations Gastrointestinal denied any nausea vomiting Pulmonary: Denied any shortness of breath cough Neurologic denied any new focal deficits All inpatient medications were reviewed and appropriate changes in these medications as dictated in the interval history and assessment and plan. Objective - Vital Signs Vital signs: Vital Signs Temp 98.4 F 01/10/21 07:40 Pulse 82 01/10/21 07:40 Resp 18 01/10/21 07:40 BP 164/68 01/10/21 07:40 Pulse Ox 93 L 01/10/21 07:40 Intake & Output 01/09/21 01/10/21 01/10/21 18:59 06:59 18:59 Intake Total 200 200 Output Total 702 1153 Balance -502 -953 Intake: Oral 200 200 Output: Urine 700 1150 Stool 2 3 Other: Voiding Method Indwelling Catheter Indwelling Catheter Indwelling Catheter - Exam PHYSICAL EXAMINATION: GENERAL: The patient is alert and oriented x3, not in any acute distress. Obese , unkempt HEENT: Pupils are round and equally reacting to light. EOMI. No scleral icterus. No conjunctival pallor. Normocephalic, atraumatic. No pharyngeal erythema. No thyromegaly. Oral thrush CARDIOVASCULAR: S1 and S2 present. No murmurs, rubs, or gallops. PULMONARY: Chest is clear to auscultation, no wheezing or crackles. ABDOMEN: Soft, nontender, nondistended, normoactive bowel sounds. No palpable organomegaly. MUSCULOSKELETAL: No joint swelling or deformity. EXTREMITIES: No cyanosis, clubbing, extensive bilateral pedal edema with mu ltiple ulcerations NEUROLOGICAL: Gross neurological examination did not reveal any focal deficits. SKIN: Candidial intertrigo - Labs CBC & Chem 7: 01/10/21 11:01 01/10/21 11:01 Labs: Abnormal Lab Results - Last 24 Hours (Table) 01/09/21 01/09/21 01/10/21 Range/Units 16:54 21:07 03:49 RBC (3.80-5.40) m/uL Hgb (11.4-16.0) gm/dL Hct (34.0-46.0) % MCHC (31.0-37.0) g/dL RDW (11.5-15.5) % Potassium (3.5-5.1) mmol/L Chloride (98-107) mmol/L BUN (7-17) mg/dL Creatinine (0.52-1.04) mg/dL Glucose (74-99) mg/dL POC Glucose (mg/dL) 241 H 277 H 212 H (75-99) mg/dL Calcium (8.4-10.2) mg/dL 01/10/21 01/10/21 01/10/21 Range/Units 06:55 11:01 11:01 RBC 2.92 L (3.80-5.40) m/uL Hgb 7.4 L (11.4-16.0) gm/dL Hct 24.7 L (34.0-46.0) % MCHC 29.9 L (31.0-37.0) g/dL RDW 22.8 H (11.5-15.5) % Potassium 2.5 L* (3.5-5.1) mmol/L Chloride 111 H (98-107) mmol/L BUN 70 H (7-17) mg/dL Creatinine 3.79 H (0.52-1.04) mg/dL Glucose 168 H (74-99) mg/dL POC Glucose (mg/dL) 212 H (75-99) mg/dL Calcium 7.9 L (8.4-10.2) mg/dL 01/10/21 Range/Units 11:27 RBC (3.80-5.40) m/uL Hgb (11.4-16.0) gm/dL Hct (34.0-46.0) % MCHC (31.0-37.0) g/dL RDW (11.5-15.5) % Potassium (3.5-5.1) mmol/L Chloride (98-107) mmol/L BUN (7-17) mg/dL Creatinine (0.52-1.04) mg/dL Glucose (74-99) mg/dL POC Glucose (mg/dL) 185 H (75-99) mg/dL Calcium (8.4-10.2) mg/dL Assessment and Plan Plan: -Severe anemia with recent blood loss presently not actively bleeding: Patient has received a total of 3 units of PRBC transfusion. Hemoglobin today is 7.2 and will monitor closely and may likely need another unit of PRBCs if hemoglobin is 7 or less. -upper GI endoscopy which showed no significant abnormality. And colonoscopy was deferred and may consider outpatient with GI -Osteomyelitis and an abscess of the left foot multiple ulcerations of both legs. -Congestive heart failure chronic diastolic dysfunction with acute exacerbation also has highly elevated BNP, bilateral pedal edema improved. Patient continues to have renal dysfunction. -Hyperkalemia secondary to losartan and acute renal failure, losartan is being held. Patient's present potassium is 2.9 and will replace per protocol and repeat labs and monitor closely -Acute renal failure secondary to possibly acute tubular necrosis presently oliguric. Patient initially had prerenal azotemia secondary to volume overload. Patient will need renal replacement therapy/hemodialysis. Nephrology following and consult being placed to Dr. Mcdonald for hemodialysis catheter placement -Bilateral lower extremity edema with chronic venous stasis and chronic venous stasis ulcerations: Patient is on Zosyn. Wound Care and infectious disease are following. Patient has beta hemolytic strep group C and Staphylococcus aureus in the wounds. -Leukocytosis secondary to extensive wounds and bilateral lower extremity, improving -Candidal intertrigo; continue with topical nystatin powder -Possible candidal esophagitis , dysphagia improved with the flucanazole; patient is presently on flucanazole and will continue at this time -Type 2 diabetes mellitus -Hypertension -Depression -Morbid obesity -DVT prophylaxis with subcutaneous heparin Plan: Continue with current IV antibiotics and current medications. Patient is ma intained on sodium bicarb drip along with sodium bicarb tablets and will continue. Patient is status post debridement of the wounds and will continue local wound care with infectious disease following. Patient has received a PICC line. Patient continues to have renal failure and nephrology is following and planning on starting dialysis and patient will undergo dialysis catheter placement today. Social work also following as patient will be needing placement and will be going to [facility] once stabilized discharge.
[2021-01-10] MEDS: POTASSIUM CHLORIDE ER 20 MEQ TAB.ER PO SCH ×3 (13:24→17:30)
[2021-01-10] MEDS: DEXTROSE 5% IN WATER 1,000 ML with SODIUM BICARB (1 MEQ/ML) 150 ML IV SCH (14:52)
--- NOTE | 2021-01-10 15:55 | PN ---
PROGRESS NOTE Patient is seen for followup for acute kidney injury. Patient's Guzman catheter was changed yesterday. She did have a little bit more urine output. It looks like her serum creatinine has improved to 3.79 from 4 yesterday. Initially there were plans for dialysis today since renal function had continued to worsen. However, given the improvement in renal function and increased urine output after changing Guzman catheter, I believe this is mostly obstructive and we can hold off on dialysis. PHYSICAL EXAMINATION: On examination today, blood pressure was 164/68, heart rate 82 per minute, she is afebrile. Examination of the heart S1 and S2. Examination lungs bilateral breath sounds are heard. Patient is morbidly obese. Examination of lower extremities shows significant edema bilaterally with chronic skin changes. [employer] exam grossly intact. LAB: Show sodium 143, potassium 2.5, chloride 111, CO2 is 22, BUN 70, creatinine 3.79, hemoglobin 7.4 g/dL. ASSESSMENT: 1. Acute kidney injury. It appears to be mostly obstructive and this has improved with changing of the Guzman catheter. Patient has had increased urine output and creatinine is also improved. I will continue with Guzman catheter and hold off on hemodialysis. 2. Severe hypokalemia, probably related to postobstructive diuresis, we will replace. 3. Morbid obesity. 4. Urinary tract infection. Urine culture positive for E coli. 5. Left foot nonhealing wound status post I and D and maintained on antibiotics. 6. Metabolic acidosis, maintained on IV bicarb. PLAN: Hold off on dialysis as renal function has improved with improvement in urine output as well post changing the Guzman catheter. We will replace potassium and repeat labs in a.m. MMODL / IJN: [id number] /
[2021-01-10 16:36] LABS: Glucose,Whole Blood 174 mg/dL (75-99)
[2021-01-10] MEDS: ARIPiprazole 5 MG TAB PO SCH (20:03)
[2021-01-10] MEDS: LACTATED RINGERS 1,000 ML IV SCH (20:03)
[2021-01-10 20:52] LABS: Glucose,Whole Blood 198 mg/dL (75-99)
--- NOTE | 2021-01-10 22:49 | PN ---
PROGRESS NOTE DATE OF SERVICE: 01/10/2021 REASON FOR FOLLOWUP: Left diabetic foot infection. INTERVAL HISTORY: The patient is currently afebrile. The patient is breathing comfortably. Denies having any chest pain. No shortness of breath. No abdominal pain. Pain to the left foot area. PHYSICAL EXAMINATION: Blood pressure 153/70 with a pulse of 71, temperature 97.5. She is 93% on room air. General description: The patient is a middle-aged female lying in in no distress. Respiratory system: Unlabored breathing, clear to auscultation anteriorly. Heart S1, S2. Regular rate and rhythm. Abdomen soft, no tenderness. The left foot is currently dressed up. No obvious drainage on the dressing. LABS: Hemoglobin 7.4, white count 9.1, BUN of 70, creatinine 3.79. DIAGNOSTIC IMPRESSION AND PLAN: Patient with left diabetic foot infection with an abscess status post drainage. Culture with multiple pathogen including MSSA, pseudomonas Strep, covered with Zosyn. Local care to continue with Santyl and monitor clinical course closely. MMODL / IJN: [id number] /
[2021-01-11] MEDS: HEPARIN SODIUM,PORCINE/PF 5,000 UNIT/0.5 ML SYRINGE SQ SCH ×4 (00:26→23:04)
[2021-01-11 07:05] LABS: Glucose,Whole Blood 187 mg/dL (75-99)
[2021-01-11] MEDS: PIPERACILLIN-TAZOBACTAM 3.375 GM in SODIUM CHLORIDE 0.9% 100 ML IVPB SCH ×2 (07:59→20:27)
[2021-01-11] MEDS: GABAPENTIN 100 MG CAP PO SCH ×2 (08:00→20:28)
[2021-01-11] MEDS: INSULIN ASPART (NovoLOG) 100 UNIT/ML VIAL SQ SCH ×4 (08:01→20:29)
[2021-01-11] MEDS: FLUCONAZOLE 100 MG TAB PO SCH (08:01)
[2021-01-11] MEDS: PANTOPRAZOLE 40 MG TABLET PO SCH ×2 (08:01→20:28)
[2021-01-11] MEDS: SODIUM BICARBONATE TAB 650 MG TAB PO SCH (08:02)
[2021-01-11] MEDS: NON FORMULARY DRUG (Liraglutide [Victoza 2-Pak] 0.6 MG/0.1 ML Pen.Injctr) SQ SCH (08:02)
[2021-01-11] MEDS: DULoxetine HCL 60 MG CAPSULE.DR PO SCH ×2 (08:03→20:28)
[2021-01-11] MEDS: NYSTATIN 100,000 UNIT/GM POWD 15 GM TOPICAL SCH ×3 (08:04→20:29)
[2021-01-11] MEDS: COLLAGENASE 250 UNIT/GM OINTMENT 30 GM TUBE TOPICAL SCH (08:05)
[2021-01-11 11:09] LABS: African American GFR (CKD) 26 (>60 ml/min/1.73 sqM); Anion Gap 7 mmol/L; Blood Urea Nitrogen 51 mg/dL (7-17); Carbon Dioxide 27 mmol/L (22-30); Chloride 111 mmol/L (98-107); Glucose 189 mg/dL (74-99); Non-African American GFR(CKD) 22 (>60 ml/min/1.73 sqM); Sodium 145 mmol/L (137-145)
[2021-01-11 11:13] LABS: Potassium 2.6 mmol/L (3.5-5.1)
[2021-01-11 11:43] LABS: Glucose,Whole Blood 199 mg/dL (75-99)
[2021-01-11] MEDS: DEXTROSE 5% IN WATER 1,000 ML with SODIUM BICARB (1 MEQ/ML) 150 ML IV SCH (11:59)
[2021-01-11] MEDS: POTASSIUM CHLORIDE ER 20 MEQ TAB.ER PO SCH ×6 (12:00→23:57)
--- NOTE | 2021-01-11 12:23 | P.PN ---
Subjective Patient is a 55-year-old female answer from [facility] because of the extreme low hemoglobin. And has a hemoglobin enforce after which patient is received monitor transfusion subsequently transferred here. Patient is to 2 more units of transfusion here patient present hemoglobin is 7.0 patient did have blood in the stools which happened a few days ago denied any recent GI bleed. Patient denied any loss stools. Patient does have multiple other issues going on. Patient is mostly bedbound barely can move around patient lives with the her son who takes care of for, patient is complaining of odynophagia does have some oral thrush with blood and bloody discharge in the time. Patient has multiple ulcerations with foul-smelling discharge. Patient was started on vancomycin. Patient does have leukocytosis doesn't have any fever. Patient is also found to have pulmonary edema receiving IV Lasix patient does have bilateral lower limb edema patient had a normal ejection fraction the past. Patient is also receiving Lasix at this time. Patient was hyperkalemic as well patient is also on lisinopril patient baseline creatinine appears to be normal presently 2.03. Patient has significant superficial fungal infection in the skin folds. Patient is also comparing of shortness of breath. 01/01/2021 Patient is urine cultures are positive for gram-negative bacilli. Patient's hemoglobin 7.7 no more GI bleed clinically at this time. looks bit better today although still complaining of odynophagia. Patient had a left foot CT which showed abscess or osteomyelitis and Charcot-type arthropathy. Patient the will undergo incision and drainage and debridement by vascular surgery. Patient is presently on Unasyn, daptomycin and flucanazole. 01/02/2021 Patient's right pupil is constricted and not reacting left pupil is reacting to light. We'll obtain CAT scan of the head. Patient blood pressure is low normal patient is still having good urine output still has some swelling of the legs with significantly improved compared to yesterday DOWN THE LASIX TO TWICE A DAY FROM 3 TIMES A DAY DID PATIENT WILL UNDERGO UPPER GI ENDOSCOPY TODAY. 01/03/2021 Patient is having an EGD. Wound cultures is showing staph aureus beta hemolytic streptococci and culture showing E. coli. Patient had ostial myelitis and had an extensive debridement of the left foot for abscess. Patient probably will need IV antibiotics. 01/04/2021 Patient had a an EGD which didn't show any significant abnormality. Patient declined colonoscopy. Patient doesn't have any more GI bleed at this time patient has osteomyelitis, patient will need IV antibiotics and wound care patient had debridement of the left foot for an abscess. Patient is showing MSSA daptomycin was discontinued, patient is only on Unasyn at this time. Patient has streptococci, MSSA. Patient is also being covered for anaerobic bacteria with Unasyn. Case management is working on her placement to subacute rehabitation for wound care and IV antibiotics and physical therapy patient probably can be discharged to subacute rehabilitation rehab if that can be arranged by tomorrow. 01/08/2021 Patient is presently on Zosyn patient won't cultures also showing Pseudomonas at this time. Patient has MSSA as well as other gram-negative organisms. Patient to creatinine continued to get worse because of which patient was not discharged. Patient will initiate on hemodialysis. Patient's potassium is low which will be replaced. Hemoglobin is 7.01 expecting this to drop by tomorrow and will need blood transfusion at that time. 01/09/2021 Patient is seen and evaluated and follow-up with no acute overnight issues. Patient is noted to have bilateral leg wounds with cultures showing beta hemolytic strep group C along with Staphylococcus aureus and patient is maintained on IV Zosyn with infectious disease and wound care following. Patient has received a PICC line and will likely require IV antibiotic therapy and the outpatient setting. Patient's potassium found to be 2.9 today and will replace per protocol and repeat labs. Creatinine is 4.6 and BUN is 85 and nephrology following an consult has been placed with Dr. Mcdonald for dialysis catheter placement. Hemoglobin is 7.2 today and will monitor closely and transfuse if less than 7. Social work also following as patient will be going to [facility] once stabilized and discharged. 01/10/2021 The patient was unable to get catheter for dialysis. Patient didn't undergo dialysis patient to hopefully can get dialysis done today after hemodialysis catheter placement today. Her potassium is low which will be replaced. 01/11/2021 Patient's creatinine is improving because of which hemodialysis is on hold at this time. We'll discuss with the case management regarding her disposition which may happen tomorrow. Her potassium is extremely low this will be replaced. Constitutional: Denied any fatigue denied any fever. Cardio vascular: denied any chest pain, palpitations Gastrointestinal denied any nausea vomiting Pulmonary: Denied any shortness of breath cough Neurologic denied any new focal deficits All inpatient medications were reviewed and appropriate changes in these medications as dictated in the interval history and assessment and plan. Objective - Vital Signs Vital signs: Vital Signs Temp 97.9 F 01/11/21 07:40 Pulse 85 01/11/21 07:40 Resp 16 01/11/21 08:05 BP 152/75 01/11/21 07:40 Pulse Ox 98 01/11/21 07:40 Intake & Output 01/10/21 01/11/21 01/11/21 18:59 06:59 18:59 Intake Total 200 Output Total 1200 2603 Balance -1200 -2403 Weight 109 kg Intake: Oral 200 Output: Urine 1200 2600 Stool 3 Other: Voiding Method Indwelling Catheter Indwelling Catheter Indwelling Catheter - Exam PHYSICAL EXAMINATION: GENERAL: The patient is alert and oriented x3, not in any acute distress. Obese , unkempt HEENT: Pupils are round and equally reacting to light. EOMI. No scleral icterus. No conjunctival pallor. Normocephalic, atraumatic. No pharyngeal erythema. No thyromegaly. Oral thrush CARDIOVASCULAR: S1 and S2 present. No murmurs, rubs, or gallops. PULMONARY: Chest is clear to auscultation, no wheezing or crackles. ABDOMEN: Soft, nontender, nondistended, normoactive bowel sounds. No palpable organomegaly. MUSCULOSKELETAL: No joint swelling or deformity. EXTREMITIES: No cyanosis, clubbing, extensive bilateral pedal edema with multiple ulcerations NEUROLOGICAL: Gross neurological examination did not reveal any focal deficits. SKIN: Candidial intertrigo - Labs CBC & Chem 7: 01/10/21 11:01 01/11/21 10:14 Labs: Abnormal Lab Results - Last 24 Hours (Table) 01/10/21 01/10/21 01/10/21 Range/Units 11:01 16:35 18:59 Potassium 2.5 L* 3.0 L (3.5-5.1) mmol/L Chloride 111 H (98-107) mmol/L BUN 70 H (7-17) mg/dL Creatinine 3.79 H (0.52-1.04) mg/dL Glucose 168 H (74-99) mg/dL POC Glucose (mg/dL) 174 H (75-99) mg/dL Calcium 7.9 L (8.4-10.2) mg/dL 01/10/21 01/11/21 01/11/21 Range/Units 20:50 06:59 10:14 Potassium 2.6 L* (3.5-5.1) mmol/L Chloride 111 H (98-107) mmol/L BUN 51 H (7-17) mg/dL Creatinine 2.33 H (0.52-1.04) mg/dL Glucose 189 H (74-99) mg/dL POC Glucose (mg/dL) 198 H 187 H (75-99) mg/dL Calcium 8.0 L (8.4-10.2) mg/dL 01/11/21 Range/Units 11:39 Potassium (3.5-5.1) mmol/L Chloride (98-107) mmol/L BUN (7-17) mg/dL Creatinine (0.52-1.04) mg/dL Glucose (74-99) mg/dL POC Glucose (mg/dL) 199 H (75-99) mg/dL Calcium (8.4-10.2) mg/dL Assessment and Plan Plan: -Osteomyelitis and an abscess of the left foot multiple ulcerations of both legs. -Severe anemia with recent blood loss presently not actively bleeding: Patient has received a total of 3 units of PRBC transfusion. Has been stable. -upper GI endoscopy which showed no significant abnormality. And colonoscopy was deferred and may consider outpatient with GI -Congestive heart failure chronic diastolic dysfunction with acute exacerbation patient is presently receiving IV fluids due to acute renal failure patient still has swelling in both legs. -Vessel will be replaced -Acute renal failure secondary to possibly acute tubular necrosis presently oliguric. Her dialysis is on hold. Never received hemodialysis her kidney function started improving. -Bilateral lower extremity edema with chronic venous stasis and chronic venous stasis ulcerations: Patient is on Zosyn. Wound Care and infectious disease are following. Patient has beta hemolytic strep group C and Staphylococcus aureus in the wounds. -Candidal intertrigo; continue with topical nystatin powder -Possible candidal esophagitis , dysphagia improved with the flucanazole; -Type 2 diabetes mellitus -Hypertension -Depression -Morbid obesity -DVT prophylaxis with subcutaneous heparin Plan: Discharge tomorrow to [facility]
--- NOTE | 2021-01-11 12:32 | CDI ---
Documentation Clarification Form Date: 01/11/2021 12:11:23 PM From: Arelis Hylton RN CCDS Admit Date: 12/31/2020 12:15:00 AM Patient Name: Cristal Ferrer Visit Number: [id number] Discharge Date: ATTENTION: The Clinical Documentation Specialists (CDI) and [facility] Coding Staff appreciate your assistance in clarifying documentation. Please respond to the clarification below the line at the bottom and electronically sign. The CDI & [facility] Coding staff will review the response and follow-up if needed. Please note: Queries are made part of the Legal Health Record. If you have any questions, please contact the author of this message via ITS. Dr. Cadena, A Buttock pressure ulcer is documented by Nursing 01/05, Nursing Pressure Injury assessment. Based on this information and the findings below, is there an additional diagnosis that is clinically appropriate for this patient? History/Risk Factors: 55-year-old female presents to the ED from [place] with low Hgb and shortness of breath. Medical History: The patient is mostly bed bound, CHF, DM 2, Super morbid obesity, HTN and bilateral pedal edema. H&P 12/31 Clinical Indicators: Nursing pressure injury assessment 01/05. Location: Buttock Wound description: Stage 2 Treatment: 01/05 Barrier cream Is there an additional diagnosis that is clinically appropriate for this patient? [ ] Buttock Pressure Ulcer Stage 1 [ ] Buttock Pressure Ulcer Stage 2 [ ] Other condition, please specify [ ] Unable to determine Clinical Definitions: Stage 1 Pressure Ulcer: intact skin, non-blanching redness of local area Stage 2 Pressure Ulcer: Partial thickness, loss of dermis, pink wound bed Stage 3 Pressure Ulcer: Full thickness tissue loss Stage 4 Pressure Ulcer: Full thickness tissue loss with exposed bone, tendon, or muscle. Unstageable pressure ulcer: Full thickness tissue loss in which the base of the ulcer is covered by slough (yellow, beth, santos, green or brown) and/or eschar (beth, brown or black) in the wound bed. Buttock Pressure Ulcer Stage 2 (Template Last Revised: October 2020) JAMIL
--- NOTE | 2021-01-11 12:52 | CDI ---
Documentation Clarification Form Date: 01/11/2021 12:32:33 PM From: Arelis Hylton RN CCDS Admit Date: 12/31/2020 12:15:00 AM Patient Name: Cristal Ferrer Visit Number: [id number] Discharge Date: ATTENTION: The Clinical Documentation Specialists (CDI) and [facility] Coding Staff appreciate your assistance in clarifying documentation. Please respond to the clarification below the line at the bottom and electronically sign. The CDI & [facility] Coding staff will review the response and follow-up if needed. Please note: Queries are made part of the Legal Health Record. If you have any questions, please contact the author of this message via ITS. Dr. Man Cadena Conflicting documentation has been found in the medical record. As attending physician, please provide clarification. A Stage IV Left foot pressure ulcer is documented by Nursing 01/07, Pressure Ulcer Injury Assessment. Diabetic Ulcer is documented by Nursing 01/03, Pressure Ulcer Injury Assessment. History/Risk Factors: 55-year-old female presents to the ED from [place] with low Hgb and shortness of breath. Medical History: The patient is mostly bed bound, CHF, DM 2, Super morbid obesity, HTN and bilateral pedal edema. H&P 12/31 Clinical Indicators: ID consult 12/31: Patient with left diabetic foot infection with significant foul-smelling drainage. Left foot plantar aspect did have ulceration, foul smelling drainage. Location: Left Foot Wound description: Length/cm: 3; Width/cm: 4; Depth/cm: 1.5; Granulation quality: pale; Drainage Amount: Small Treatment: 01/03 Hydrofiber with silver rope, Elastic wrap, Gauze sponge change dressing Q 48 hr. 01/07 Enzymatic Agent Consults: ID see above. Is there an additional diagnosis that is clinically appropriate for this patient? [ ] Left Foot Diabetic Ulcer [ ] Left Foot Pressure Ulcer Stage 4 [ ] Other condition, please specify [ ] Unable to determine Clinical Definitions: Stage 1 Pressure Ulcer: intact skin, non-blanching redness of local area Stage 2 Pressure Ulcer: Partial thickness, loss of dermis, pink wound bed Stage 3 Pressure Ulcer: Full thickness tissue loss Stage 4 Pressure Ulcer: Full thickness tissue loss with exposed bone, tendon, or muscle. Unstageable pressure ulcer: Full thickness tissue loss in which the base of the ulcer is covered by slough (yellow, beth, santos, green or brown) and/or eschar (beth, brown or black) in the wound bed. Left Foot Pressure Ulcer Stage 4 (Template Last Revised: October 2020) [facility]
--- NOTE | 2021-01-11 13:58 | PN ---
PROGRESS NOTE DATE OF SERVICE: 01/11/2021 REASON FOR FOLLOW UP: Left big toe diabetic foot infection. INTERVAL HISTORY: Patient is currently afebrile. The patient is breathing comfortably. Patient denies having any chest pain. No shortness of breath or cough. No abdominal pain or pain to the left foot area. PHYSICAL EXAMINATION: Blood pressure 158/75, pulse of 85, temperature 97.9. She is 98% on room air. General description: The patient is a middle-aged female lying in in no distress. Respiratory system: Unlabored breathing, clear to auscultation anteriorly. Heart is S1, S2. Regular rate and rhythm. Abdomen soft no tenderness. Left foot currently dressed up. No obvious drainage on the dressing. DIAGNOSTIC IMPRESSION AND PLAN: Patient with left diabetic foot infection with an abscess status post drainage, culture with MSSA, Pseudomonas, Proteus and Patient is covered with Zosyn and did have evidence of renal failure. The patient is currently being monitored by Nephrology. Continue supportive care. MMODL / IJN: [id number] / MTDD
--- NOTE | 2021-01-11 15:52 | PN ---
PROGRESS NOTE Patient is seen for followup for acute kidney injury which appears to be mostly related to obstructed Guzman catheter. Urine output improved after changing the catheter and dialysis is currently on hold. EXAMINATION: Today patient is comfortable. Blood pressure 152/75, heart rate 85 per minute, she is afebrile. Examination of the heart S1, S2. Examination of the lungs, bilateral breath sounds are heard. Abdomen is soft, nontender. Examination of lower extremities shows chronic skin changes, chronic edema. Left foot is currently wrapped. LAB: Show sodium 145, potassium 2.6, chloride 111, CO2 is 27, BUN 51, creatinine 2.3 mg/dL. ASSESSMENT: 1. Acute kidney injury secondary to initially ATN, and then obstructive as well secondary to obstructed Guzman catheter status post new catheter placement with improvement in urine output and renal function. 2. Hypokalemia associated with postobstructive diuresis. 3. Morbid obesity. 4. Left lower extremity cellulitis and wounds. 5. Urinary tract infection. 6. Metabolic acidosis, currently improved. PLAN: Discontinue sodium bicarb. Will change IV fluids to half-normal saline and hold off on dialysis. Replace potassium. DC sodium bicarb as well and repeat labs in a.m. Continue with Guzman catheter and maintain regular flushing of catheter. MMODL / IJN: [id number] /
[2021-01-11] MEDS: SODIUM CHLORIDE 0.45% 1,000 ML IV SCH (16:09)
[2021-01-11 16:21] LABS: Glucose,Whole Blood 239 mg/dL (75-99)
[2021-01-11 20:20] LABS: Glucose,Whole Blood 211 mg/dL (75-99)
[2021-01-11] MEDS: ARIPiprazole 5 MG TAB PO SCH (20:28)
[2021-01-11] MEDS: LACTATED RINGERS 1,000 ML IV SCH (20:28)
[2021-01-12 07:25] LABS: Glucose,Whole Blood 181 mg/dL (75-99)
[2021-01-12] MEDS: HEPARIN SODIUM,PORCINE/PF 5,000 UNIT/0.5 ML SYRINGE SQ SCH (08:08)
[2021-01-12] MEDS: INSULIN ASPART (NovoLOG) 100 UNIT/ML VIAL SQ SCH ×2 (08:08→13:06)
[2021-01-12] MEDS: DULoxetine HCL 60 MG CAPSULE.DR PO SCH (08:09)
[2021-01-12] MEDS: NON FORMULARY DRUG (Liraglutide [Victoza 2-Pak] 0.6 MG/0.1 ML Pen.Injctr) SQ SCH (08:09)
[2021-01-12] MEDS: PANTOPRAZOLE 40 MG TABLET PO SCH (08:09)
[2021-01-12] MEDS: GABAPENTIN 100 MG CAP PO SCH (08:09)
[2021-01-12] MEDS: NYSTATIN 100,000 UNIT/GM POWD 15 GM TOPICAL SCH (08:09)
[2021-01-12] MEDS: PIPERACILLIN-TAZOBACTAM 3.375 GM in SODIUM CHLORIDE 0.9% 100 ML IVPB SCH (08:09)
[2021-01-12] MEDS: FLUCONAZOLE 100 MG TAB PO SCH (08:09)
[2021-01-12] MEDS: COLLAGENASE 250 UNIT/GM OINTMENT 30 GM TUBE TOPICAL SCH (08:09)
[2021-01-12 08:38] VITALS: RESP 16; TEMP 97.7
[2021-01-12 11:24] LABS: African American GFR (CKD) 47 (>60 ml/min/1.73 sqM); Anion Gap 8 mmol/L; Blood Urea Nitrogen 36 mg/dL (7-17); Calcium 8.5 mg/dL (8.4-10.2); Carbon Dioxide 20 mmol/L (22-30); Chloride 117 mmol/L (98-107); Glucose 192 mg/dL (74-99); Non-African American GFR(CKD) 40 (>60 ml/min/1.73 sqM); Potassium 3.8 mmol/L (3.5-5.1); Sodium 145 mmol/L (137-145)
[2021-01-12 11:46] LABS: Glucose,Whole Blood 195 mg/dL (75-99)
[2021-01-12] MEDS: SODIUM CHLORIDE 0.45% 1,000 ML IV SCH (13:05)
--- NOTE | 2021-01-12 14:27 | PN ---
PROGRESS NOTE Patient is seen for followup for acute kidney injury which was mostly associated with obstructive Guzman catheter. Renal function started to improve once the patient's Guzman catheter was changed. She denies any significant complaints. Her creatinine is down to 1.43 currently. PHYSICAL EXAMINATION: On examination today, blood pressure was 145/74, heart rate 82 per minute, she is afebrile. Examination of the heart S1, S2. Examination of the lungs, bilateral breath sounds are heard. Patient is morbidly obese. Examination of lower extremities shows no significant edema. OPERATOR RECEPTIONIST exam grossly intact. LAB: Show sodium 145, potassium 3.8, chloride 117, CO2 is 20, BUN 36, creatinine 1.43, calcium 8.5. ASSESSMENT: 1. Acute kidney injury associated with obstructive Guzman catheter. Currently improved significantly post change of Guzman catheter. 2. Mild hyperkalemia, currently improved. 3. Left lower extremity wounds and cellulitis. 4. Urinary tract infection. 5. Metabolic acidosis. PLAN: Can discontinue IV fluids. Continue to encourage increased oral intake. Maintain Guzman catheter and local wound care. MMODL / IJN: [id number] /
--- NOTE | 2021-01-12 15:17 | P.DS ---
Providers Date of admission: 12/31/20 00:15 Attending physician: Stephanie Rodriguez Consults: 12/31/20 00:13 Consult Physician Routine Consulting Provider: Shannon Garrett Consult Reason/Comments: osteo Do you want consulting provider notified?: Yes 12/31/20 18:49 Consult Physician Routine Consulting Provider: Raza Mcdonald Consult Reason/Comments: left foot abscess/ wound , debridemnt and epp cultures Do you want consulting provider notified?: Yes 01/04/21 13:33 Consult Physician Routine Consulting Provider: Caesar Medley Consult Reason/Comments: PICC line clearance for home antibiotics-low GFR Do you want consulting provider notified?: Yes 01/09/21 14:03 Consult Physician Routine Consulting Provider: Raza Mcdonald Consult Reason/Comments: dialysis catherter placement Do you want consulting provider notified?: Already Contacted Primary care physician: [facility] Course: Patient is a 55-year-old female answer from [facility] because of the extreme low hemoglobin. And has a hemoglobin enforce after which patient is received monitor transfusion subsequently transferred here. Patient is to 2 more units of transfusion here patient present hemoglobin is 7.0 patient did have blood in the stools which happened a few days ago denied any recent GI bleed. Patient denied any loss stools. Patient does have multiple other issues going on. Patient is mostly bedbound barely can move around patient lives with the her son who takes care of for, patient is complaining of odynophagia does have some oral thrush with blood and bloody discharge in the time. Patient has multiple ulcerations with foul-smelling discharge. Patient was started on vancomycin. Patient does have leukocytosis doesn't have any fever. Patient is also found to have pulmonary edema receiving IV Lasix patient does have bilateral lower limb edema patient had a normal ejection fraction the past. Patient is also receiving Lasix at this time. Patient was hyperkalemic as well patient is also on lisinopril patient baseline creatinine appears to be normal presently 2.03. Patient has significant superficial fungal infection in the skin folds. Patient is also comparing of shortness of breath. 01/01/2021 Patient is urine cultures are positive for gram-negative bacilli. Patient's hemoglobin 7.7 no more GI bleed clinically at this time. looks bit better today although still complaining of odynophagia. Patient had a left foot CT which showed abscess or osteomyelitis and Charcot-type arthropathy. Patient the will undergo incision and drainage and debridement by vascular surgery. Patient is presently on Unasyn, daptomycin and flucanazole. 01/02/2021 Patient's right pupil is constricted and not reacting left pupil is reacting to light. We'll obtain CAT scan of the head. Patient blood pressure is low normal patient is still having good urine output still has some swelling of the legs with significantly improved compared to yesterday DOWN THE LASIX TO TWICE A DAY FROM 3 TIMES A DAY DID PATIENT WILL UNDERGO UPPER GI ENDOSCOPY TODAY. 01/03/2021 Patient is having an EGD. Wound cultures is showing staph aureus beta hemolytic streptococci and culture showing E. coli. Patient had ostial myelitis and had an extensive debridement of the left foot for abscess. Patient probably will need IV antibiotics. 01/04/2021 Patient had a an EGD which didn't show any significant abnormality. Patient declined colonoscopy. Patient doesn't have any more GI bleed at this time patient has osteomyelitis, patient will need IV antibiotics and wound care patient had debridement of the left foot for an abscess. Patient is showing MSSA daptomycin was discontinued, patient is only on Unasyn at this time. Patient has streptococci, MSSA. Patient is also being covered for anaerobic bacteria with Unasyn. Case management is working on her placement to subacute rehabitation for wound care and IV antibiotics and physical therapy patient probably can be discharged to subacute rehabilitation rehab if that can be arranged by tomorrow. 01/08/2021 Patient is presently on Zosyn patient won't cultures also showing Pseudomonas at this time. Patient has MSSA as well as other gram-negative organisms. Patient to creatinine continued to get worse because of which patient was not discharged. Patient will initiate on hemodialysis. Patient's potassium is low which will be replaced. Hemoglobin is 7.01 expecting this to drop by tomorrow and will need blood transfusion at that time. 01/09/2021 Patient is seen and evaluated and follow-up with no acute overnight issues. Patient is noted to have bilateral leg wounds with cultures showing beta hemolytic strep group C along with Staphylococcus aureus and patient is maintained on IV Zosyn with infectious disease and wound care following. Patient has received a PICC line and will likely require IV antibiotic therapy and the outpatient setting. Patient's potassium found to be 2.9 today and will replace per protocol and repeat labs. Creatinine is 4.6 and BUN is 85 and nephrology following an consult has been placed with Dr. Mcdonald for dialysis catheter placement. Hemoglobin is 7.2 today and will monitor closely and transfuse if less than 7. Social work also following as patient will be going to [facility] once stabilized and discharged. 01/10/2021 The patient was unable to get catheter for dialysis. Patient didn't undergo dialysis patient to hopefully can get dialysis done today after hemodialysis catheter placement today. Her potassium is low which will be replaced. 01/11/2021 Patient's creatinine is improving because of which hemodialysis is on hold at this time. We'll discuss with the case management regarding her disposition which may happen tomorrow. Her potassium is extremely low this will be replaced. 01/12/2021 To summarize her hospitalization patient was admitted for chronic venous stasis, venous stasis ulcers in the foot along with infection of the right foot and also monitors of the right foot patient grew MSSA, Pseudomonas and patient is being discharged on Zosyn to cover both these organisms. Patient had acute tubular necrosis in the hospitalization plan was to initiate on hemodialysis although her kidney function recovered and creatinine came down to 1.43 from 4.6 patient was cleared by infectious disease and nephrology and patient is being discharged to subacute rehabilitation for physical therapy, wound care, IV antibiotics. Patient was on Lasix which is being held at this time probably will require Lasix once kidney function improves and after evaluation by nephrology. Patient is also on lisinopril which is being held PHYSICAL EXAMINATION: GENERAL: The patient is alert and oriented x3, not in any acute distress. Obese , unkempt HEENT: Pupils are round and equally reacting to light. EOMI. No scleral icterus. No conjunctival pallor. Normocephalic, atraumatic. No pharyngeal erythema. No thyromegaly. Oral thrush CARDIOVASCULAR: S1 and S2 present. No murmurs, rubs, or gallops. PULMONARY: Chest is clear to auscultation, no wheezing or crackles. ABDOMEN: Soft, nontender, nondistended, normoactive bowel sounds. No palpable organomegaly. MUSCULOSKELETAL: No joint swelling or deformity. EXTREMITIES: No cyanosis, clubbing, extensive bilateral pedal edema with multiple ulcerations NEUROLOGICAL: Gross neurological examination did not reveal any focal deficits. SKIN: Stage IV ulcer in the heel stage II decubitus ulcer in the buttock which were present on admission Assessment and Plan Plan: -Osteomyelitis and an abscess of the left foot multiple ulcerations of both legs. Patient is status post incision and drainage and debridement -Severe anemia with recent blood loss presently not actively bleeding: Patient has received a total of 3 units of PRBC transfusion since admission hemoglobin is stable. Ferritin is 140 patient probably has anemia of chronic disease -upper GI endoscopy which showed no significant abnormality. And colonoscopy was deferred and may consider outpatient with GI -Congestive heart failure chronic diastolic dysfunction with acute exacerbation on admission presently not on any Lasix because of recent renal failure -Acute renal failure secondary to acute blood necrosis improving did not require hemodialysis -Bilateral lower extremity edema with chronic venous stasis and chronic venous stasis ulcerations: -Candidal intertrigo; continue with topical nystatin powder -Possible candidal esophagitis , dysphagia improved with the flucanazole; -Type 2 diabetes mellitus -Hypertension -Depression -Morbid obesity Patient Condition at Discharge: Serious Plan - Discharge Summary New Discharge Prescriptions: New Sodium Bicarbonate Tab 1,300 mg PO BID #60 tab Gabapentin [Neurontin] 100 mg PO BID #10 cap Fluconazole [Diflucan] 100 mg PO DAILY #14 tab Pantoprazole [Protonix] 40 mg PO BID #60 tablet. Piperacillin-Tazobactam [Zosyn] 3.375 gm IVPB Q8HR #120 bag HYDROcodone/APAP 5-325MG [Claiborne 5-325] 1 each PO Q6HR PRN #10 tab PRN Reason: Pain Continue ARIPiprazole [Abilify] 5 mg PO HS DULoxetine HCL [Cymbalta] 60 mg PO BID Pravastatin Sodium [Pravachol] 20 mg PO HS metFORMIN HCL [Glucophage] 1,000 mg PO BID@0900,1700 Liraglutide [Victoza 2-Brenden] 1.8 mg SQ DAILY Ondansetron [Zofran] 4 mg PO Q8H PRN PRN Reason: Nausea Allopurinol [Zyloprim] 300 mg PO DAILY ALPRAZolam [Xanax] 0.5 mg PO BID Discontinued lisinopriL [Zestril] 10 mg PO DAILY Ibuprofen [Motrin] 800 mg PO DAILY Furosemide [Lasix] 40 mg PO BID Gabapentin 300 mg PO BID Discharge Medication List ARIPiprazole [Abilify] 5 mg PO HS 01/29/18 [History] DULoxetine HCL [Cymbalta] 60 mg PO BID 01/29/18 [History] Pravastatin Sodium [Pravachol] 20 mg PO HS 01/29/18 [History] metFORMIN HCL [Glucophage] 1,000 mg PO BID@0900,1700 05/15/20 [History] ALPRAZolam [Xanax] 0.5 mg PO BID 12/31/20 [History] Allopurinol [Zyloprim] 300 mg PO DAILY 12/31/20 [History] Liraglutide [Victoza 2-Brenden] 1.8 mg SQ DAILY 12/31/20 [History] Ondansetron [Zofran] 4 mg PO Q8H PRN 12/31/20 [History] Fluconazole [Diflucan] 100 mg PO DAILY #14 tab 01/05/21 [Rx] Pantoprazole [Protonix] 40 mg PO BID #60 tablet. 01/05/21 [Rx] Piperacillin-Tazobactam [Zosyn] 3.375 gm IVPB Q8HR #120 bag 01/05/21 [Rx] Sodium Bicarbonate Tab 1,300 mg PO BID #60 tab 01/05/21 [Rx] Gabapentin [Neurontin] 100 mg PO BID #10 cap 01/12/21 [Rx] HYDROcodone/APAP 5-325MG [Claiborne 5-325] 1 each PO Q6HR PRN #10 tab 01/12/21 [Rx] Follow up Appointment(s)/Referral(s): [facility] [NON-STAFF] - Care,[facility] [NON-STAFF] - Sima Lopez PAC [Primary Care Provider] - 3 Days [facility] [NON-STAFF] - Discharge Disposition: HOME SELF-CARE
[2021-01-12 15:19] VITALS: BP 131/74; PULSE 81
--- NOTE | 2021-01-12 18:02 | PN ---
PROGRESS NOTE DATE OF SERVICE: 01/12/2021 REASON FOR FOLLOWUP: Left diabetic foot infection with an abscess. INTERVAL HISTORY: The patient is currently afebrile. The patient is breathing comfortably. Denies having any chest pain. No shortness of breath or cough. No nausea, vomiting. No abdominal pain or pain to the left foot. PHYSICAL EXAMINATION: Blood pressure 158/75, pulse of 85. Temperature 97.7. She is 95% on 4 L nasal cannula. General description: The patient is a middle-aged female lying in be in no distress. Respiratory system: Unlabored breathing, clear to auscultation anteriorly. Heart S1, S2. Regular rate and rhythm. Abdomen soft, no tenderness. Left foot is currently dressed. No obvious drainage on the dressing. LABS: BUN of 36, creatinine 1.43. DIAGNOSTIC IMPRESSION AND PLAN: Patient with left diabetic foot infection and abscess status post drainage. Culture with multiple pathogens. Patient on Zosyn to continue for another 4 weeks. Local wound care with Santyl and followup in the wound center in 1 week. MMODL / IJN: [id number] /
[2021-01-12] MEDS ORDERED: ALPRAZolam 0.5 MG TAB PO SCH (21:00)
[2021-01-15 13:12] LABS: Hepatitis A Antibody IgM Non-Reactive (Non-Reactive); Hepatitis B Core IgM Non-Reactive (Non-Reactive); Hepatitis B Surface Antigen Non-Reactive (Non-Reactive); Hepatitis C IgG Antibody Non-Reactive (Non-Reactive)
--- NOTE | 2021-01-16 06:53 | CDI ---
Documentation Clarification Form Date: 01/16/21 From: Chantal Rubio Admit Date: 12/31/2020 12:15:00 AM Patient Name: Cristal Ferrer Visit Number: [id number] Discharge Date: 01/12/2021 04:34:00 PM ATTENTION: The Clinical Documentation Specialists (CDI) and [facility] Coding Staff appreciate your assistance in clarifying documentation. Please respond to the clarification below the line at the bottom and electronically sign. The CDI & [facility] Coding staff will review the response and follow-up if needed. Please note: Queries are made part of the Legal Health Record. If you have any questions, please contact the author of this message via ITS. Dr. Man Cadena, Osteomyelitis is documented 01/01 progress note and subsequent progress notes, OP report and DS. Additional clarification regarding the cause and acuity of the osteomyelitis is requested. History/Risk Factors: Type II DM w Charcot's, foot ulcer, cellulitis, CKD III Clinical Indicators: Bilateral lower extremity edema with chronic venous stasis and chronic venous stasis ulcerations: Patient will be started on Unasyn, Vancomycin. Wound Care was consulted infectious disease will be consulted. Labs: Left foot cultures: Beta Hemolytic Strep Group C, Staph aureus, Pseudomonas aeruginosa, Proteus mirabilis. WBC-27.3, Neutrophils-22.9, X-Ray Results: Significant midfoot findings as detailed above. Presence of fluid and bony destruction suggests infectious process consistent with abscess/osteomyelitis versus possible Charcot-type arthropathy or other inflammatory arthropathy. Treatment: Drainage and debridement of left foot abscess/osteomyelitis. IV antibiotics Please clarify the acuity and etiology of the osteomyelitis, if known: Acuity: [ ] Acute osteomyelitis [ ] Chronic osteomyelitis [ ] Subacute osteomyelitis [ ] Unable to Determine Acute osteomyelitis MTDD
== END 2021-01-12 16:34 | DRG 622 ==
LOC: EC 21:35 → 3SCARD 12-31 00:15 → 4SSUR 01-05 07:10
PROVIDERS: ADMIT Hospitalist; ATTEND Hospitalist
DX: E11.69 Type 2 diabetes mellitus with other specified complication (principal); L89.894 Pressure ulcer of other site, stage 4; I50.33 Acute on chronic diastolic (congestive) heart failure; M86.172 Other acute osteomyelitis, left ankle and foot; I13.0 Hypertensive heart and chronic kidney disease with heart failure and stage 1 through stage 4 chronic kidney disease, or unspecified chronic kidney disease; E87.2 Acidosis; B37.81 Candidal esophagitis; B37.0 Candidal stomatitis; L97.921 Non-pressure chronic ulcer of unspecified part of left lower leg limited to breakdown of skin; L97.911 Non-pressure chronic ulcer of unspecified part of right lower leg limited to breakdown of skin; D62 Acute posthemorrhagic anemia; L03.116 Cellulitis of left lower limb; Z68.41 Body mass index [BMI] 40.0-44.9, adult; N39.0 Urinary tract infection, site not specified; L02.612 Cutaneous abscess of left foot; K92.1 Melena; N17.0 Acute kidney failure with tubular necrosis; E11.610 Type 2 diabetes mellitus with diabetic neuropathic arthropathy; D63.1 Anemia in chronic kidney disease; E11.42 Type 2 diabetes mellitus with diabetic polyneuropathy; L89.302 Pressure ulcer of unspecified buttock, stage 2; I83.018 Varicose veins of right lower extremity with ulcer other part of lower leg; I83.028 Varicose veins of left lower extremity with ulcer other part of lower leg; E11.22 Type 2 diabetes mellitus with diabetic chronic kidney disease; E11.621 Type 2 diabetes mellitus with foot ulcer; E11.628 Type 2 diabetes mellitus with other skin complications; E66.01 Morbid (severe) obesity due to excess calories; T83.098A Other mechanical complication of other urinary catheter, initial encounter; B37.2 Candidiasis of skin and nail; B96.20 Unspecified Escherichia coli [E. coli] as the cause of diseases classified elsewhere; N18.30 Chronic kidney disease, stage 3 unspecified; Z53.8 Procedure and treatment not carried out for other reasons; B96.5 Pseudomonas (aeruginosa) (mallei) (pseudomallei) as the cause of diseases classified elsewhere; B95.61 Methicillin susceptible Staphylococcus aureus infection as the cause of diseases classified elsewhere; E78.5 Hyperlipidemia, unspecified; E87.5 Hyperkalemia; E87.6 Hypokalemia; F32.9 Major depressive disorder, single episode, unspecified; K21.9 Gastro-esophageal reflux disease without esophagitis; M19.90 Unspecified osteoarthritis, unspecified site; R19.7 Diarrhea, unspecified; L30.9 Dermatitis, unspecified; Z79.84 Long term (current) use of oral hypoglycemic drugs; Z79.899 Other long term (current) drug therapy; Z74.01 Bed confinement status; Z87.891 Personal history of nicotine dependence; Z87.19 Personal history of other diseases of the digestive system; Z90.49 Acquired absence of other specified parts of digestive tract; Z87.42 Personal history of other diseases of the female genital tract; Z90.710 Acquired absence of both cervix and uterus; Z98.891 History of uterine scar from previous surgery; Z98.890 Other specified postprocedural states; Z71.3 Dietary counseling and surveillance; Y84.6 Urinary catheterization as the cause of abnormal reaction of the patient, or of later complication, without mention of misadventure at the time of the procedure; Y92.230 Patient room in hospital as the place of occurrence of the external cause; Z88.1 Allergy status to other antibiotic agents; Z80.9 Family history of malignant neoplasm, unspecified; Z82.49 Family history of ischemic heart disease and other diseases of the circulatory system
CPT/HCPCS: 36410; 36415; 36573; 43239; 70450; 71045; 76770; 76937; 80048; 80053; 80074; 80202; 81001; 82728; 83540; 83550; 83735; 83880; 84132; 85025; 85027; 86704; 86706; 86850; 86900; 86901; 86920; 87040; 87070; 87075; 87077; 87086; 87186; 87205; 87324; 87340; 88305; 94760; 99285

== ENCOUNTER 2021-12-26 18:49 | Inpatient (IN) | payer MEDICARE, OTHER ==
[2021-12-27 02:23] LABS: Glucose,Whole Blood 108 mg/dL (75-99)
[2021-12-27] MEDS ORDERED: SODIUM CHLORIDE 0.9% 1,000 ML IV SCH (02:30)
[2021-12-27] MEDS: ceFAZolin 3 GM in SODIUM CHLORIDE 0.9% 100 ML IVPB SCH ×3 (03:07→21:04)
[2021-12-27 06:03] LABS: Basophils % (A) 1 %; Eosinophils # (A) 0.4 k/uL (0-0.7); Eosinophils % (A) 7 %; HGB 8.8 gm/dL (11.4-16.0); Lymphocytes # (A) 1.3 k/uL (1.0-4.8); Lymphocytes % (A) 23 %; MCH 28.4 pg (25.0-35.0); MCHC 31.5 g/dL (31.0-37.0); MCV 90.4 fL (80.0-100.0); Mean Platelet Volume 8.4; Monocytes # (A) 0.3 k/uL (0-1.0); Monocytes % (A) 6 %; Neutrophils # (A) 3.5 k/uL (1.3-7.7); Neutrophils % (A) 61 %; Platelet Count 136 k/uL (150-450); RBC 3.09 m/uL (3.80-5.40); RDW 14.1 % (11.5-15.5); WBC 5.7 k/uL (3.8-10.6)
[2021-12-27 06:14] LABS: African American GFR (CKD) 26 (>60 ml/min/1.73 sqM); Anion Gap 8 mmol/L; Blood Urea Nitrogen 50 mg/dL (7-17); Calcium 8.7 mg/dL (8.4-10.2); Carbon Dioxide 17 mmol/L (22-30); Chloride 109 mmol/L (98-107); Glucose 95 mg/dL (74-99); Non-African American GFR(CKD) 22 (>60 ml/min/1.73 sqM); Potassium 5.3 mmol/L (3.5-5.1); Sodium 134 mmol/L (137-145)
[2021-12-27 07:00] LABS: Glucose,Whole Blood 107 mg/dL (75-99)
[2021-12-27] MEDS: INSULIN ASPART (NovoLOG) 100 UNIT/ML VIAL SQ SCH ×4 (07:21→21:05)
[2021-12-27] MEDS: DULoxetine HCL 30 MG CAPSULE.DR PO SCH (08:21)
[2021-12-27] MEDS: INSULIN DETEMIR (LEVEMIR) 100 UNIT/ML SYR SQ SCH (10:25)
[2021-12-27 11:29] LABS: Glucose,Whole Blood 129 mg/dL (75-99)
[2021-12-27] MEDS ORDERED: ONDANSETRON 4 MG/2 ML VIAL IVP PRN (12:35)
[2021-12-27] MEDS ORDERED: ACETAMINOPHEN TAB 325 MG TAB PO PRN (12:36)
[2021-12-27] MEDS ORDERED: HYDROcodone/APAP 5-325MG 1 EACH TAB PO PRN (12:36)
--- NOTE | 2021-12-27 12:41 | P.NPCON ---
History of Present Illness - Reason for Consult acute renal failure - History of Present Illness Patient is a 56-year-old female with history of type 2 diabetes, hypertension, chronic wound on the left foot. Patient is admitted to the hospital with increased drainage from the wound. Patient denies any history of fevers chills nausea vomiting abdominal pain or diarrhea. Patient was maintained on Bactrim and Augmentin as outpatient. Patient denies any previous history of kidney diseases Serum creatinine is 2.3 mg/dL. Previous creatinine was 0.9 on 02/06/2021 Patient denies use of any nonsteroidal anti-inflammatory agents. Blood pressure has been low with systolic around 100 mmHg. Patient is yanick ntained on JEWEL inhibitor's at home Admits to decreased urine output. Review of Systems As per HPI, other systems negative Past Medical History Past Medical History: Heart Failure, Diabetes Mellitus, GERD/Reflux, Hypertension, Osteoarthritis (OA) Additional Past Medical History / Comment(s): morbid obesity,HF, Neuropathy bilateral legs Type 2 diabetes mellitus,Chronic venous stasis with dermatosis and pedal edema chronic, enterobacteria and enterococal wound infection 2018 History of Any Multi-Drug Resistant Organisms: Other MDRO Past Surgical History: Adenoidectomy, Section, Cholecystectomy, Hernia Repair, Hysterectomy, Orthopedic Surgery, Tonsillectomy Additional Past Surgical History / Comment(s): carple tunnel sx right hand, Partial small bowel resection with ventral hernia incarceration Past Anesthesia/Blood Transfusion Reactions: No Reported Reaction Past Psychological History: Depression Smoking Status: Former smoker Past Alcohol Use History: None Reported Past Drug Use History: None Reported - Past Family History Mother Family Medical History: Asthma, Myocardial Infarction (SD) Father Family Medical History: Asthma, Cancer Sister(s) Family Medical History: Asthma, Deep Vein Thrombosis (DVT) Medications and Allergies Home Medications Medication Instructions Recorded Confirmed Type ARIPiprazole [Abilify] 5 mg PO HS 01/29/18 12/26/21 History Pravastatin Sodium [Pravachol] 20 mg PO HS 01/29/18 12/26/21 History Amoxic-Pot Clav 875-125Mg 1 tab PO Q12H 12/26/21 12/26/21 History [Augmentin 875-125] DULoxetine HCL [Cymbalta] See Taper PO DIRECTED 12/26/21 12/26/21 History Furosemide [Lasix] 40 mg PO BID 12/26/21 12/26/21 History Insulin Degludec [Tresiba 30 units SQ DAILY 12/26/21 12/26/21 History Flextouch U-200 Pen] Potassium Chloride [Potassium 10 meq PO DAILY 12/26/21 12/26/21 History Chloride ER] Semaglutide [Ozempic] 1 mg SQ JOHNSON 12/26/21 12/26/21 History Sulfamethox-Tmp 800-160Mg [Bactrim 2 tab PO Q12H 12/26/21 12/26/21 History DS 800-160 mg] lisinopriL [Zestril] 10 mg PO DAILY 12/26/21 12/26/21 History metFORMIN HCL [Glucophage] 500 mg PO BID 12/26/21 12/26/21 History Allergies Allergy/AdvReac Type Severity Reaction Status Date / Time cephalexin monohydrate AdvReac Nausea & Verified 12/26/21 22:49 [From Keflex] Vomiting Physical Exam Vitals: Vital Signs Temp Pulse Resp BP Pulse Ox 12/27/21 08:00 16 12/27/21 07:45 98.2 F 81 16 100/55 96 12/27/21 01:54 98.2 F 73 16 105/63 99 12/26/21 22:00 16 12/26/21 21:59 98.2 F 72 16 104/60 99 Intake and Output 12/26/21 12/27/21 12/27/21 22:59 06:59 14:59 Output Total 400 Balance -400 Output: Urine 400 Other: Voiding Method External Catheter External Catheter Weight 124 kg Patient is awake, comfortable, not in any acute distress Examination of the heart S1 and S2 Examination of the lungs bilateral breath sounds are heard Abdomen is soft nontender obese Examination of lower extremities shows chronic edema chronic skin changes left foot wound is dressed [employer] exam is grossly intact Results - Lab Results Most recent lab results Calcium 8.7 mg/dL (8.4-10.2) 12/27/21 05:42 12/27/21 05:42 12/27/21 05:42 Assessment and Plan Assessment: 1. Acute kidney injury, nonoliguric, mostly ATN associated with hypoperfusion. Patient was also on Bactrim prior to admission which may have added to some degree of acute kidney injury or in increase in serum creatinine without acute kidney injury. Check UA, hold Jewel inhibitors 2. Mild hyperkalemia associated with acute kidney injury and use of jewel inhibitors prior to admission 3. Non-gap metabolic acidosis associated with acute kidney injury 4. Left foot wound status post Bactrim and Augmentin 5. Anemia rule out iron deficiency 6. Type 2 diabetes Plan: Continue with IV fluids increased to 75 mL an hour Check UA Check ultrasound of the kidneys Continue with IV antibiotics Switch IV fluids to IV bicarb Check iron profile Thank you for the consultation, we'll continue to follow the patient with you during her hospitalization
--- NOTE | 2021-12-27 14:52 | P.HPIM ---
History of Present Illness H&P Date: 12/27/21 Chief Complaint: Foot infection Patient is a 56-year-old female with a known history of hypertension, hyperlipidemia, diabetes type 2, bilateral peripheral neuropathy and chronic venous stasis and chronic left foot wound initially presented to [facility] due to increasing drainage and purulent discharge from the left foot wound. Patient was transferred to [facility] for debridement and antibiotics. Patient was also found to have acute kidney injury. Otherwise patient denied any complaints of chest pain or shortness of breath. No cough or sputum production. No nausea vomiting or abdominal pain or diarrhea. Denies any dysuria or hematuria. Laboratory data at the [facility] showed creatinine level 2.3 and creatinine level at baseline 0.9 Patient is currently on antibiotics and above Augmentin and Bactrim as an outpatient patient is also on Lasix. Review of Systems Constitutional: Patient denies any fever or chills . No generalized weakness or weight loss. Abdomen: Patient denied nausea vomiting and diarrhea and abdominal pain. Cardiovascular: Patient denies any chest pain or short of breath no palpitations. Respiratory: patient denied any cough is from production. No shortness of breath Neurologic: Patient denied any numbness or tingling headache. Musculoskeletal: Patient denies any complaints of joint swelling or deformity. Skin: Negative Psychiatric: Negative Endocrine: No heat or cold intolerance. No recent weight gain. Genitourinary: No dysuria or hematuria. All other 14 point ROS negative except the above Past Medical History Past Medical History: Heart Failure, Diabetes Mellitus, GERD/Reflux, Hypertension, Osteoarthritis (OA) Additional Past Medical History / Comment(s): morbid obesity,HF, Neuropathy bilateral legs Type 2 diabetes mellitus,Chronic venous stasis with dermatosis and pedal edema chronic, enterobacteria and enterococal wound infection 2018 History of Any Multi-Drug Resistant Organisms: Other MDRO Past Surgical History: Adenoidectomy, Section, Cholecystectomy, Hernia Repair, Hysterectomy, Orthopedic Surgery, Tonsillectomy Additional Past Surgical History / Comment(s): carple tunnel sx right hand, Partial small bowel resection with ventral hernia incarceration Past Anesthesia/Blood Transfusion Reactions: No Reported Reaction Past Psychological History: Depression Smoking Status: Former smoker Past Alcohol Use History: None Reported Past Drug Use History: None Reported - Past Family History Mother Family Medical History: Asthma, Myocardial Infarction ([place]) Father Family Medical History: Asthma, Cancer Sister(s) Family Medical History: Asthma, Deep Vein Thrombosis (DVT) Medications and Allergies Home Medications Medication Instructions Recorded Confirmed Type ARIPiprazole [Abilify] 5 mg PO HS 01/29/18 12/26/21 History Pravastatin Sodium [Pravachol] 20 mg PO HS 01/29/18 12/26/21 History Amoxic-Pot Clav 875-125Mg 1 tab PO Q12H 12/26/21 12/26/21 History [Augmentin 875-125] DULoxetine HCL [Cymbalta] See Taper PO DIRECTED 12/26/21 12/26/21 History Furosemide [Lasix] 40 mg PO BID 12/26/21 12/26/21 History Insulin Degludec [Tresiba 30 units SQ DAILY 12/26/21 12/26/21 History Flextouch U-200 Pen] Potassium Chloride [Potassium 10 meq PO DAILY 12/26/21 12/26/21 History Chloride ER] Semaglutide [Ozempic] 1 mg SQ JOHNSON 12/26/21 12/26/21 History Sulfamethox-Tmp 800-160Mg [Bactrim 2 tab PO Q12H 12/26/21 12/26/21 History DS 800-160 mg] lisinopriL [Zestril] 10 mg PO DAILY 12/26/21 12/26/21 History metFORMIN HCL [Glucophage] 500 mg PO BID 12/26/21 12/26/21 History Allergies Allergy/AdvReac Type Severity Reaction Status Date / Time cephalexin monohydrate AdvReac Nausea & Verified 12/26/21 22:49 [From Keflex] Vomiting Physical Exam Vitals: Vital Signs Temp Pulse Resp BP Pulse Ox 12/27/21 08:00 16 12/27/21 07:45 98.2 F 81 16 100/55 96 12/27/21 01:54 98.2 F 73 16 105/63 99 12/26/21 22:00 16 12/26/21 21:59 98.2 F 72 16 104/60 99 Intake and Output 12/26/21 12/27/21 12/27/21 22:59 06:59 14:59 Output Total 400 Balance -400 Output: Urine 400 Other: Voiding Method External Catheter External Catheter Weight 124 kg PHYSICAL EXAMINATION: Patient is lying in the bed comfortably, no acute distress, awake alert and oriented.. HEENT: Normocephalic. Neck is supple. Pupils reactive. Nostrils clear. Oral cavity is moist. Neck reveals no JVD, carotid bruits, or thyromegaly. CHEST EXAMINATION: Trachea is central. Symmetrical expansion. Lung ansari clear to auscultation and percussion. CARDIAC: Normal S1, S2 with no gallops. No murmurs ABDOMEN: Soft. Bowel sounds normal. No organomegaly. No abdominal bruits. Extremities: reveal no edema. Left foot plantar ulcer with purulent base. No clubbing or cyanosis Neurologically awake, alert, oriented x3 with well-coordinated movements. No focal deficits noted Skin: No rash or skin lesions. Psychiatric: Coperative. Nonsuicidal Musculoskeletal: No joint swelling or deformity. Normal range of motion. Results CBC & Chem 7: 12/27/21 05:42 12/27/21 05:42 Labs: Abnormal Lab Results - Last 24 Hours (Table) 12/27/21 12/27/21 12/27/21 Range/Units 02:21 05:42 05:42 RBC 3.09 L (3.80-5.40) m/uL Hgb 8.8 L (11.4-16.0) gm/dL Hct 28.0 L (34.0-46.0) % Plt Count 136 L (150-450) k/uL Sodium 134 L (137-145) mmol/L Potassium 5.3 H (3.5-5.1) mmol/L Chloride 109 H (98-107) mmol/L Carbon Dioxide 17 L (22-30) mmol/L BUN 50 H (7-17) mg/dL Creatinine 2.35 H (0.52-1.04) mg/dL POC Glucose (mg/dL) 108 H (75-99) mg/dL Hemoglobin A1c (0.0-6.0) % 12/27/21 12/27/21 12/27/21 Range/Units 05:42 06:59 11:27 RBC (3.80-5.40) m/uL Hgb (11.4-16.0) gm/dL Hct (34.0-46.0) % Plt Count (150-450) k/uL Sodium (137-145) mmol/L Potassium (3.5-5.1) mmol/L Chloride (98-107) mmol/L Carbon Dioxide (22-30) mmol/L BUN (7-17) mg/dL Creatinine (0.52-1.04) mg/dL POC Glucose (mg/dL) 107 H 129 H (75-99) mg/dL Hemoglobin A1c 6.7 H (0.0-6.0) % Thrombosis Risk Factor Assmnt - DVT/VTE Prophylaxis DVT/VTE Prophylaxis: Pharmacologic Prophylaxis ordered - Choose All That Apply Each Factor Represents 1 point: Age 41-60 years, Obesity (BMI >25), Swollen legs (current) Each Risk Factor Represents 2 Points: Patient confined to bed Each Risk Factor Represents 3 Points: Family history of DVT/PE Thrombosis Risk Factor Assessment Total Risk Factor Score: 8 Thrombosis Risk Factor Assessment Level: High Risk Assessment and Plan Assessment: Left foot diabetic ulcer with infection Acute kidney injury. Possible ATN due to hypoperfusion/hypotension. Diabetes type 2 insulin-dependent. A1c 6.7 Mild hyperkalemia due to acute kidney injury 5.3 Normocytic anemia Hypovolemic hyponatremia morbid obesity BMI 50.0 DVT prophylaxis plan: Patient will be continued on antibiotics in the form of cefazolin. Continue with IV hydration and monitor renal function closely. Follow-up wound cultures and ID and nephrology was consulted. IV fluids changed to bicarb drip as per nephrology. Lisinopril is on hold due to mild hyperkalemia and acute kidney injury. Continue with home medications. Continue with insulin regimen and insulin sliding scale. Continue to follow closely. Pain control with Tylenol. Time with Patient: Greater than 30
--- NOTE | 2021-12-27 16:01 | US ---
EXAMINATION TYPE: US kidneys/renal and bladder DATE OF EXAM: 12/27/2021 COMPARISON: 01/05/2021 CLINICAL HISTORY: KRIS. morbidly obese patient, KRIS EXAM MEASUREMENTS: Right Kidney: 14.0 x 5.4 x 7.1 cm Left Kidney: 12.6 x 5.2 x 6.5 cm Right Kidney: No hydronephrosis, nephrolithiasis or masses seen Left Kidney: No hydronephrosis, nephrolithiasis or masses seen Bladder: Images are not submitted. Nondiagnostic assessment. IMPRESSION: No hydronephrosis or nephrolithiasis.
[2021-12-27] MEDS: DEXTROSE 5% IN WATER 1,000 ML with SODIUM BICARB (1 MEQ/ML) 150 ML IV SCH (16:05)
[2021-12-27] MEDS: HEPARIN SODIUM,PORCINE/PF 5,000 UNIT/0.5 ML SYRINGE SQ SCH (16:06)
[2021-12-27 16:42] LABS: Glucose,Whole Blood 121 mg/dL (75-99)
[2021-12-27 19:06] LABS: % Iron Saturation 13.34 (12.00-45.00)
[2021-12-27 20:57] LABS: Glucose,Whole Blood 151 mg/dL (75-99)
[2021-12-27] MEDS: PRAVASTATIN SODIUM 20 MG TAB PO SCH (21:04)
[2021-12-27] MEDS: ARIPiprazole 5 MG TAB PO SCH (21:04)
[2021-12-28] MEDS: HEPARIN SODIUM,PORCINE/PF 5,000 UNIT/0.5 ML SYRINGE SQ SCH ×3 (00:31→17:17)
[2021-12-28] MEDS: ceFAZolin 3 GM in SODIUM CHLORIDE 0.9% 100 ML IVPB SCH ×3 (04:57→20:25)
[2021-12-28 06:52] LABS: Glucose,Whole Blood 118 mg/dL (75-99)
[2021-12-28] MEDS: INSULIN ASPART (NovoLOG) 100 UNIT/ML VIAL SQ SCH ×4 (06:56→21:09)
[2021-12-28] MEDS: INSULIN DETEMIR (LEVEMIR) 100 UNIT/ML SYR SQ SCH (06:59)
[2021-12-28] MEDS: DULoxetine HCL 30 MG CAPSULE.DR PO SCH (07:48)
--- NOTE | 2021-12-28 08:12 | P.CONS ---
History of Present Illness - Reason for Consult Consult date: 12/27/21 Left diabetic foot ulcer Requesting physician: Tanner Ty - Chief Complaint left foot wound and draiange x few days - History of Present Illness Patient is a 56-year-old female with a past medical history significant for insulin-dependent diabetes mellitus patient did have a history of left diabetic foot wound and underlying osteomyelitis which has healed up at the patient to follow at [facility], patient did mention that her left foot plantar wound opened up about 2 weeks ago patient denies having history of any trauma she has been complaining of mostly bloody drainage from her left foot plantar wound patient denies having any pain to the left foot and denies having any fever or chills no chest pain shortness of breath or cough no nausea no vomiting no abdominal pain or any diarrhea patient was noticed to have elevated creatinine for the patient has been transferred to [facility] on arrival to the ER the patient has been afebrile and no fever has been recorded subsequently patient did have normal white count BUN and creatinine are elevated no cultures were done patient has been started on cefazolin infectious disease was consulted for further management of antibiotic therapy Review of Systems Positive point has been mentioned in the HPI rest of the systems are negative Past Medical History Past Medical History: Heart Failure, Diabetes Mellitus, GERD/Reflux, Hypertension, Osteoarthritis (OA) Additional Past Medical History / Comment(s): morbid obesity,HF, Neuropathy bilateral legs Type 2 diabetes mellitus,Chronic venous stasis with dermatosis and pedal edema chronic, enterobacteria and enterococal wound infection 2018 History of Any Multi-Drug Resistant Organisms: Other MDRO Past Surgical History: Adenoidectomy, Section, Cholecystectomy, Hernia Repair, Hysterectomy, Orthopedic Surgery, Tonsillectomy Additional Past Surgical History / Comment(s): carple tunnel sx right hand, Partial small bowel resection with ventral hernia incarceration Past Anesthesia/Blood Transfusion Reactions: No Reported Reaction Past Psychological History: Depression Smoking Status: Former smoker Past Alcohol Use History: None Reported Past Drug Use History: None Reported - Past Family History Mother Family Medical History: Asthma, Myocardial Infarction ([place]) Father Family Medical History: Asthma, Cancer Sister(s) Family Medical History: Asthma, Deep Vein Thrombosis (DVT) Medications and Allergies Home Medications Medication Instructions Recorded Confirmed Type ARIPiprazole [Abilify] 5 mg PO HS 01/29/18 12/26/21 History Pravastatin Sodium [Pravachol] 20 mg PO HS 01/29/18 12/26/21 History Amoxic-Pot Clav 875-125Mg 1 tab PO Q12H 12/26/21 12/26/21 History [Augmentin 875-125] DULoxetine HCL [Cymbalta] See Taper PO DIRECTED 12/26/21 12/26/21 History Furosemide [Lasix] 40 mg PO BID 12/26/21 12/26/21 History Insulin Degludec [Tresiba 30 units SQ DAILY 12/26/21 12/26/21 History Flextouch U-200 Pen] Potassium Chloride [Potassium 10 meq PO DAILY 12/26/21 12/26/21 History Chloride ER] Semaglutide [Ozempic] 1 mg SQ JOHNSON 12/26/21 12/26/21 History Sulfamethox-Tmp 800-160Mg [Bactrim 2 tab PO Q12H 12/26/21 12/26/21 History DS 800-160 mg] lisinopriL [Zestril] 10 mg PO DAILY 12/26/21 12/26/21 History metFORMIN HCL [Glucophage] 500 mg PO BID 12/26/21 12/26/21 History Allergies Allergy/AdvReac Type Severity Reaction Status Date / Time cephalexin monohydrate AdvReac Nausea & Verified 12/26/21 22:49 [From Keflex] Vomiting Physical Exam Vitals: Vital Signs Temp Pulse Resp BP Pulse Ox 12/27/21 14:00 99.3 F 87 17 134/64 94 L 12/27/21 08:00 16 12/27/21 07:45 98.2 F 81 16 100/55 96 12/27/21 01:54 98.2 F 73 16 105/63 99 12/26/21 22:00 16 12/26/21 21:59 98.2 F 72 16 104/60 99 Intake and Output 12/27/21 12/27/21 12/27/21 06:59 14:59 22:59 Output Total 400 450 Balance -400 -450 Output: Urine 400 450 Other: Voiding Method External Catheter GENERAL DESCRIPTION: Middle-aged female lying in bed, no distress. No tachypnea or accessory muscle of respiration use. HEENT: Shows Pallor , no scleral icterus. Oral mucous membrane is dry. No pharyngeal erythema or thrush NECK: Trachea central, no thyromegaly. LUNGS: Unlabored breathing. Clear to auscultation anteriorly. No wheeze or crackle. HEART: S1, S2, regular rate and rhythm. No loud murmur ABDOMEN: Soft, no tenderness , guarding or rigidity, no organomegaly EXTREMITIES: Left foot plantar ulcer with minimal bleeding no significant surrounding redness or drainage. SKIN: No rash, no masses palpable. NEUROLOGICAL: The patient is awake, alert, oriented x3, mood and affect normal. Results CBC & Chem 7: 12/27/21 05:42 12/27/21 05:42 Labs: Abnormal Lab Results - Last 24 Hours (Table) 12/27/21 12/27/21 12/27/21 Range/Units 02:21 05:42 05:42 RBC 3.09 L (3.80-5.40) m/uL Hgb 8.8 L (11.4-16.0) gm/dL Hct 28.0 L (34.0-46.0) % Plt Count 136 L (150-450) k/uL Sodium 134 L (137-145) mmol/L Potassium 5.3 H (3.5-5.1) mmol/L Chloride 109 H (98-107) mmol/L Carbon Dioxide 17 L (22-30) mmol/L BUN 50 H (7-17) mg/dL Creatinine 2.35 H (0.52-1.04) mg/dL POC Glucose (mg/dL) 108 H (75-99) mg/dL Hemoglobin A1c (0.0-6.0) % 12/27/21 12/27/21 12/27/21 Range/Units 05:42 06:59 11:27 RBC (3.80-5.40) m/uL Hgb (11.4-16.0) gm/dL Hct (34.0-46.0) % Plt Count (150-450) k/uL Sodium (137-145) mmol/L Potassium (3.5-5.1) mmol/L Chloride (98-107) mmol/L Carbon Dioxide (22-30) mmol/L BUN (7-17) mg/dL Creatinine (0.52-1.04) mg/dL POC Glucose (mg/dL) 107 H 129 H (75-99) mg/dL Hemoglobin A1c 6.7 H (0.0-6.0) % Assessment and Plan (1) Foot ulcer, left Current Visit: No Status: Acute Code(s): L97.529 - NON-PRESSURE CHRONIC ULCER OTH PRT LEFT FOOT W UNSP SEVERITY SNOMED Code(s): 446758554 Plan: 1patient with left diabetic foot plantar ulcer likely infected callus apparently the patient was complaining of some purulent drainage to the [facility] however she told me it was mostly bloody drainage patient currently do not have any fluctuation or drainage to the left foot plantar ulcer no significant redness. 2renal insufficiency could be related to the outpatient Bactrim use. 3cephalexin allergy mostly nausea vomiting possibly GI side effect rather than true allergy she has tolerated cefazolin without any problem so far. 4we will check x-ray of the left foot and check inflammatory markers. 5continue with the cefazolin. We will follow on clinical condition and cultures to further adjust medication if needed Thank you for this consultation will follow this patient along with you
[2021-12-28 08:49] LABS: Basophils # (A) 0.01 X 10*3/uL (0.00-0.10); Basophils % (A) 0.2 %; Eosinophils # (A) 0.18 X 10*3/uL (0.04-0.35); Eosinophils % (A) 3.4 %; HCT 25.2 % (37.2-46.3); Immature Grans, Automated 0.2 %; Lymphocytes # (A) 2.33 X 10*3/uL (0.90-5.00); Lymphocytes % (A) 44.6 %; MCH 28.3 pg (27.0-32.0); MCHC 31.7 g/dL (32.0-37.0); Mean Platelet Volume 11.2 fL (9.5-12.2); Monocytes # (A) 0.47 X 10*3/uL (0.20-1.00); NRBC Per 100 WBC 0 /100 WBCS (0.0-0.0); Neutrophils # (A) 2.23 X 10*3/uL (1.80-7.70); Neutrophils % (A) 42.6 %; Platelet Count 131 X 10*3/uL (140-440); RBC 2.83 X 10*6/uL (4.10-5.20); RDW 14.6 % (11.5-14.5); WBC 5.23 X 10*3/uL (4.50-10.00)
[2021-12-28 09:01] LABS: African American GFR (CKD) 20.7 (60.0-200.0); BUN/Creat Ratio 18.71 Ratio (12.00-20.00); Blood Urea Nitrogen 52.4 mg/dL (9.0-27.0); C Reactive Protein 1.3 mg/dL (0.00-0.80); Calcium 8.4 mg/dL (8.7-10.3); Non-African American GFR(CKD) 17.9 (60.0-200.0); Potassium 5.1 mmol/L (3.5-5.5)
[2021-12-28 09:49] LABS: Erythrocyte Sedimentation Rate 39 mm/Hr (0-30)
--- NOTE | 2021-12-28 10:03 | XR ---
EXAMINATION TYPE: XR foot complete LT DATE OF EXAM: 12/28/2021 COMPARISON: NONE HISTORY: Diabetic foot ulcer TECHNIQUE: Three views are submitted. FINDINGS: Diffuse soft tissue edema with diffuse osteopenia. Arthropathy of the DIP joints of all digits and fi rst MCP joint with hypertrophic spurring correlate for bunion. No definite acute fracture. No disloca tion. Calcaneal spurs are seen and there is diffuse osteopenia. Reduced mineralization base proximal phalanx fifth digit. IMPRESSION: 1. Diffuse soft tissue edema and diffuse osteopenia. Reduced mineralization base proximal phalanx fif th digit similar bone scan to exclude osteomyelitis.
--- NOTE | 2021-12-28 10:51 | P.PN ---
Subjective Patient is seen for follow-up for acute kidney injury. Patient has underlying history of type 2 diabetes hypertension, chronic wound on the left foot. Patient had been on Bactrim and Augmentin at home prior to admission. Serum creatinine was 2.3 mg/dL and increased to 2.8 today. Previous creatinine was 0.9 on 02/06/2021. Blood pressure had been low with systolic around 100 mmHg and patient was maintained on JEWEL inhibitor as prior to admission Patient reported no urine output. Ultrasound of the kidneys does not show any significant hydronephrosis. UA is still pending Patient is maintained on IV fluids Objective - Vital Signs Vital signs: Vital Signs Temp 98.4 F 12/28/21 07:48 Pulse 66 12/28/21 07:48 Resp 18 12/28/21 09:36 BP 102/60 12/28/21 07:48 Pulse Ox 93 L 12/28/21 07:48 Intake & Output 12/27/21 12/28/21 12/28/21 18:59 06:59 18:59 Intake Total 1680 Output Total 450 400 Balance 1230 -400 Intake: Intake, IV Titration 600 Amount Dextrose 5% in Water 1, 600 000 ml @ 50 mls/hr IV . 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 - Labs CBC & Chem 7: 12/28/21 06:30 12/28/21 06:30 Labs: Abnormal Lab Results - Last 24 Hours (Table) 12/27/21 12/27/21 12/27/21 Range/Units 05:42 11:27 16:40 RBC (4.10-5.20) X 10*6/uL Hgb (12.0-15.0) g/dL Hct (37.2-46.3) % MCHC (32.0-37.0) g/dL RDW (11.5-14.5) % Plt Count (140-440) X 10*3/uL ESR (0-30) mm/Hr Sodium (135-145) mmol/L Carbon Dioxide (20.0-27.5) mmol/L BUN (9.0-27.0) mg/dL Creatinine (0.6-1.5) mg/dL Est GFR (CKD-EPI)AfAm (60.0-200.0) Est GFR (CKD-EPI)NonAf (60.0-200.0) POC Glucose (mg/dL) 129 H 121 H (75-99) mg/dL Calcium (8.7-10.3) mg/dL Iron 40 L (50-170) ug/dL C-Reactive Protein (0.00-0.80) mg/dL 12/27/21 12/28/21 12/28/21 Range/Units 20:53 06:30 06:30 RBC 2.83 L (4.10-5.20) X 10*6/uL Hgb 8.0 L (12.0-15.0) g/dL Hct 25.2 L (37.2-46.3) % MCHC 31.7 L (32.0-37.0) g/dL RDW 14.6 H (11.5-14.5) % Plt Count 131 L (140-440) X 10*3/uL ESR 39 H (0-30) mm/Hr Sodium 134 L (135-145) mmol/L Carbon Dioxide 19.0 L (20.0-27.5) mmol/L BUN 52.4 H (9.0-27.0) mg/dL Creatinine 2.8 H (0.6-1.5) mg/dL Est GFR (CKD-EPI)AfAm 20.7 L (60.0-200.0) Est GFR (CKD-EPI)NonAf 17.9 L (60.0-200.0) POC Glucose (mg/dL) 151 H (75-99) mg/dL Calcium 8.4 L (8.7-10.3) mg/dL Iron (50-170) ug/dL C-Reactive Protein 1.30 H (0.00-0.80) mg/dL 12/28/21 Range/Units 06:51 RBC (4.10-5.20) X 10*6/uL Hgb (12.0-15.0) g/dL Hct (37.2-46.3) % MCHC (32.0-37.0) g/dL RDW (11.5-14.5) % Plt Count (140-440) X 10*3/uL ESR (0-30) mm/Hr Sodium (135-145) mmol/L Carbon Dioxide (20.0-27.5) mmol/L BUN (9.0-27.0) mg/dL Creatinine (0.6-1.5) mg/dL Est GFR (CKD-EPI)AfAm (60.0-200.0) Est GFR (CKD-EPI)NonAf (60.0-200.0) POC Glucose (mg/dL) 118 H (75-99) mg/dL Calcium (8.7-10.3) mg/dL Iron (50-170) ug/dL C-Reactive Protein (0.00-0.80) mg/dL Assessment and Plan Assessment: 1. Acute kidney injury, nonoliguric, mostly ATN associated with hypoperfusion. Patient was also on Bactrim prior to admission which may have added to some degree of acute kidney injury or in increase in serum creatinine without acute kidney injury. Check UA, hold Jewel inhibitors. No obstruction noted on ultrasound 2. Mild hyperkalemia associated with acute kidney injury and use of jewel in hibitors prior to admission 3. Non-gap metabolic acidosis associated with acute kidney injury 4. Left foot wound status post Bactrim and Augmentin 5. Anemia rule out iron deficiency 6. Type 2 diabetes Plan: Continue with bicarb drip at 50 mL an hour Add midodrine as blood pressure remains low Check bladder scan Repeat labs in a.m.
[2021-12-28 11:01] LABS: Amorphous Sediment,Urine Rare /hpf; Appearance,Urine Turbid (Clear); Bacteria,Urine Occasional /hpf; Bilirubin,Urine Negative (Negative); Blood,Urine Negative (Negative); Color,Urine Yellow; Glucose,Urine (UA) Negative (Negative); Ketones,Urine Trace (Negative); Leukocyte Esterase,Urine Large (Negative); Mucus,Urine Rare /hpf; Nitrite,Urine Negative (Negative); PH, Urine 5.5 (5.0-8.0); Protein,Urine Negative (Negative); RBC,Urine 1 /hpf (0-5); Specific Gravity,Urine 1.016 (1.001-1.035); Squamous Epithelial Cell,Urine 4 /hpf (0-4); Urobilinogen,Urine <2.0 mg/dL (<2.0); WBC,Urine 48 /hpf (0-5)
[2021-12-28] MEDS: DEXTROSE 5% IN WATER 1,000 ML with SODIUM BICARB (1 MEQ/ML) 150 ML IV SCH (11:07)
[2021-12-28 11:22] LABS: Glucose,Whole Blood 157 mg/dL (75-99)
--- NOTE | 2021-12-28 15:20 | P.PN ---
Subjective Progress Note Date: 12/28/21 Principal diagnosis: Left diabetic foot ulcer and infection Patient is a 56-year-old female with a past medical history negative for diabetes mellitus and left diabetic foot ulcer with underlying Osteomyelitis, patient presented to hospital with reopening of the left foot plantar wound and bleeding, also noticed to have acute renal failure. On today's evaluation that is 12/28/2021, the patient denies having any fever or chills, the patient is breathing comfortably no chest pain shortness of breath or cough no nausea no vomiting no abdominal pain no diarrhea Objective - Vital Signs Vital signs: Vital Signs Temp 98.4 F 12/28/21 07:48 Pulse 66 12/28/21 07:48 Resp 18 12/28/21 09:36 BP 102/60 12/28/21 07:48 Pulse Ox 93 L 12/28/21 07:48 Intake & Output 12/27/21 12/28/21 12/28/21 18:59 06:59 18:59 Intake Total 1680 Output Total 450 400 Balance 1230 -400 Intake: Intake, IV Titration 600 Amount Dextrose 5% in Water 1, 600 000 ml @ 50 mls/hr IV . Q23H KASANDRA with Sodium Bicarb (1 Meq/ml) 150 ml Rx#:[id number] Oral 1080 Output: Urine 450 400 Other: Voiding Method External Catheter External Catheter External Catheter # Voids 1 # Bowel Movements 0 - Exam GENERAL DESCRIPTION: Middle-age female lying in bed in no distress RESPIRATORY SYSTEM: Unlabored breathing , decreased breath sounds at bases HEART: S1 S2 regular rate and rhythm , ABDOMEN: Soft , no tenderness EXTREMITIES: Left foot plantar callus ulceration with some bleeding no purulence was noticed - Labs CBC & Chem 7: 12/28/21 06:30 12/28/21 06:30 Labs: Abnormal Lab Results - Last 24 Hours (Table) 12/27/21 12/27/21 12/27/21 Range/Units 05:42 16:40 20:53 RBC (4.10-5.20) X 10*6/uL Hgb (12.0-15.0) g/dL Hct (37.2-46.3) % MCHC (32.0-37.0) g/dL RDW (11.5-14.5) % Plt Count (140-440) X 10*3/uL ESR (0-30) mm/Hr Sodium (135-145) mmol/L Carbon Dioxide (20.0-27.5) mmol/L BUN (9.0-27.0) mg/dL Creatinine (0.6-1.5) mg/dL Est GFR (CKD-EPI)AfAm (60.0-200.0) Est GFR (CKD-EPI)NonAf (60.0-200.0) POC Glucose (mg/dL) 121 H 151 H (75-99) mg/dL Calcium (8.7-10.3) mg/dL Iron 40 L (50-170) ug/dL C-Reactive Protein (0.00-0.80) mg/dL Urine Appearance (Clear) Urine Ketones (Negative) Ur Leukocyte Esterase (Negative) Urine WBC (0-5) /hpf Amorphous Sediment (None) /hpf Urine Bacteria (None) /hpf Urine Mucus (None) /hpf 12/28/21 12/28/21 12/28/21 Range/Units 06:30 06:30 06:51 RBC 2.83 L (4.10-5.20) X 10*6/uL Hgb 8.0 L (12.0-15.0) g/dL Hct 25.2 L (37.2-46.3) % MCHC 31.7 L (32.0-37.0) g/dL RDW 14.6 H (11.5-14.5) % Plt Count 131 L (140-440) X 10*3/uL ESR 39 H (0-30) mm/Hr Sodium 134 L (135-145) mmol/L Carbon Dioxide 19.0 L (20.0-27.5) mmol/L BUN 52.4 H (9.0-27.0) mg/dL Creatinine 2.8 H (0.6-1.5) mg/dL Est GFR (CKD-EPI)AfAm 20.7 L (60.0-200.0) Est GFR (CKD-EPI)NonAf 17.9 L (60.0-200.0) POC Glucose (mg/dL) 118 H (75-99) mg/dL Calcium 8.4 L (8.7-10.3) mg/dL Iron (50-170) ug/dL C-Reactive Protein 1.30 H (0.00-0.80) mg/dL Urine Appearance (Clear) Urine Ketones (Negative) Ur Leukocyte Esterase (Negative) Urine WBC (0-5) /hpf Amorphous Sediment (None) /hpf Urine Bacteria (None) /hpf Urine Mucus (None) /hpf 12/28/21 12/28/21 Range/Units 10:30 11:20 RBC (4.10-5.20) X 10*6/uL Hgb (12.0-15.0) g/dL Hct (37.2-46.3) % MCHC (32.0-37.0) g/dL RDW (11.5-14.5) % Plt Count (140-440) X 10*3/uL ESR (0-30) mm/Hr Sodium (135-145) mmol/L Carbon Dioxide (20.0-27.5) mmol/L BUN (9.0-27.0) mg/dL Creatinine (0.6-1.5) mg/dL Est GFR (CKD-EPI)AfAm (60.0-200.0) Est GFR (CKD-EPI)NonAf (60.0-200.0) POC Glucose (mg/dL) 157 H (75-99) mg/dL Calcium (8.7-10.3) mg/dL Iron (50-170) ug/dL C-Reactive Protein (0.00-0.80) mg/dL Urine Appearance Turbid H (Clear) Urine Ketones Trace H (Negative) Ur Leukocyte Esterase Large H (Negative) Urine WBC 48 H (0-5) /hpf Amorphous Sediment Rare H (None) /hpf Urine Bacteria Occasional H (None) /hpf Urine Mucus Rare H (None) /hpf Assessment and Plan (1) Foot ulcer, left Current Visit: No Status: Acute Code(s): L97.529 - NON-PRESSURE CHRONIC ULCER OTH PRT LEFT FOOT W UNSP SEVERITY SNOMED Code(s): 599720664 Plan: 1patient with left diabetic foot plantar ulcer likely infected callus apparently the patient was complaining of some purulent drainage to the [facility] however she told me it was mostly bloody drainage patient currently do not have any fluctuation or drainage to the left foot plantar ulcer no significant redness. 2renal insufficiency could be related to the outpatient Bactrim use. 3cephalexin allergy mostly nausea vomiting possibly GI side effect rather than true allergy she has tolerated cefazolin without any problem so far. 4 x-ray of the left foot did not show any bony destruction, culture were obtained today and will be followed 5patient to continue with the cefazolin, local wound care with Aquacel silver dressing changed every 48 hour Time with Patient: Less than 30
[2021-12-28 16:48] LABS: Glucose,Whole Blood 207 mg/dL (75-99)
[2021-12-28] MEDS: MIDODRINE 5 MG TAB PO SCH (17:17)
[2021-12-28 20:56] LABS: Glucose,Whole Blood 245 mg/dL (75-99)
[2021-12-28] MEDS: PRAVASTATIN SODIUM 20 MG TAB PO SCH (21:09)
[2021-12-28] MEDS: ARIPiprazole 5 MG TAB PO SCH (21:09)
[2021-12-29] MEDS: HEPARIN SODIUM,PORCINE/PF 5,000 UNIT/0.5 ML SYRINGE SQ SCH ×4 (00:35→23:33)
[2021-12-29] MEDS: ceFAZolin 3 GM in SODIUM CHLORIDE 0.9% 100 ML IVPB SCH ×3 (03:07→20:23)
[2021-12-29 06:51] LABS: Glucose,Whole Blood 149 mg/dL (75-99)
[2021-12-29] MEDS: INSULIN ASPART (NovoLOG) 100 UNIT/ML VIAL SQ SCH ×4 (07:34→20:23)
[2021-12-29] MEDS: INSULIN DETEMIR (LEVEMIR) 100 UNIT/ML SYR SQ SCH (07:34)
[2021-12-29] MEDS: MIDODRINE 5 MG TAB PO SCH ×2 (07:35→17:24)
[2021-12-29] MEDS: DULoxetine HCL 30 MG CAPSULE.DR PO SCH (07:35)
[2021-12-29 09:44] LABS: Basophils # (A) 0.02 X 10*3/uL (0.00-0.10); Basophils % (A) 0.3 %; Eosinophils % (A) 5.2 %; HCT 26.2 % (37.2-46.3); Immature Grans, Automated 0.3 %; Lymphocytes # (A) 2.51 X 10*3/uL (0.90-5.00); Lymphocytes % (A) 43.2 %; MCH 27.9 pg (27.0-32.0); MCHC 30.5 g/dL (32.0-37.0); MCV 91.3 fL (80.0-97.0); Mean Platelet Volume 11.6 fL (9.5-12.2); Monocytes # (A) 0.49 X 10*3/uL (0.20-1.00); Monocytes % (A) 8.4 %; NRBC Per 100 WBC 0 /100 WBCS (0.0-0.0); Neutrophils # (A) 2.47 X 10*3/uL (1.80-7.70); Neutrophils % (A) 42.6 %; Platelet Count 130 X 10*3/uL (140-440); RBC 2.87 X 10*6/uL (4.10-5.20); RDW 14.5 % (11.5-14.5); WBC 5.81 X 10*3/uL (4.50-10.00)
[2021-12-29 10:44] LABS: African American GFR (CKD) 20.4 (60.0-200.0); BUN/Creat Ratio 18.84 Ratio (12.00-20.00); Blood Urea Nitrogen 53.5 mg/dL (9.0-27.0); Calcium 8.1 mg/dL (8.7-10.3); Carbon Dioxide 19.4 mmol/L (20.0-27.5); Non-African American GFR(CKD) 17.6 (60.0-200.0); Potassium 4.3 mmol/L (3.5-5.5)
[2021-12-29] MEDS: DEXTROSE 5% IN WATER 1,000 ML with SODIUM BICARB (1 MEQ/ML) 150 ML IV SCH (11:37)
[2021-12-29 11:42] LABS: Glucose,Whole Blood 214 mg/dL (75-99)
[2021-12-29] MEDS ORDERED: FUROSEMIDE 10 MG/ML 10 ML VIAL IV STA (15:18)
--- NOTE | 2021-12-29 15:18 | P.PN ---
Subjective Progress Note Date: 12/29/21 Follow-up for acute kidney injury. Objective - Vital Signs Vital signs: Vital Signs Temp 98.3 F 12/29/21 14:00 Pulse 59 L 12/29/21 14:00 Resp 16 12/29/21 14:00 BP 117/61 12/29/21 14:00 Pulse Ox 94 L 12/29/21 14:00 Intake & Output 12/28/21 12/29/21 12/29/21 18:59 06:59 18:59 Intake Total 250 Output Total 800 1 Balance -550 -1 Intake: Oral 250 Output: Urine 800 Stool 1 Other: Voiding Method External Catheter Bedside Commode External Catheter # Voids 1 3 1 # Bowel Movements 1 2 1 - Exam No acute distress S1-S2 heard Decreased breath sounds Lower extremity edema - Labs CBC & Chem 7: 12/29/21 05:36 12/29/21 05:36 Labs: Abnormal Lab Results - Last 24 Hours (Table) 12/28/21 12/28/21 12/29/21 Range/Units 16:47 20:53 05:36 RBC 2.87 L (4.10-5.20) X 10*6/uL Hgb 8.0 L (12.0-15.0) g/dL Hct 26.2 L (37.2-46.3) % MCHC 30.5 L (32.0-37.0) g/dL Plt Count 130 L (140-440) X 10*3/uL Carbon Dioxide (20.0-27.5) mmol/L BUN (9.0-27.0) mg/dL Creatinine (0.6-1.5) mg/dL Est GFR (CKD-EPI)AfAm (60.0-200.0) Est GFR (CKD-EPI)NonAf (60.0-200.0) Glucose (70-110) mg/dL POC Glucose (mg/dL) 207 H 245 H (75-99) mg/dL Calcium (8.7-10.3) mg/dL 12/29/21 12/29/21 12/29/21 Range/Units 05:36 06:49 11:40 RBC (4.10-5.20) X 10*6/uL Hgb (12.0-15.0) g/dL Hct (37.2-46.3) % MCHC (32.0-37.0) g/dL Plt Count (140-440) X 10*3/uL Carbon Dioxide 19.4 L (20.0-27.5) mmol/L BUN 53.5 H (9.0-27.0) mg/dL Creatinine 2.8 H (0.6-1.5) mg/dL Est GFR (CKD-EPI)AfAm 20.4 L (60.0-200.0) Est GFR (CKD-EPI)NonAf 17.6 L (60.0-200.0) Glucose 131 H (70-110) mg/dL POC Glucose (mg/dL) 149 H 214 H (75-99) mg/dL Calcium 8.1 L (8.7-10.3) mg/dL Microbiology - Last 24 Hours (Table) 12/28/21 13:00 Gram Stain - Preliminary Foot - Left Wound Culture - Preliminary Assessment and Plan Assessment: #1 acute kidney injury secondary to hemodynamic ATN with low blood pressures. -UA pyuria with ketones -Baseline creatinine 0.9 MG per DL -Renal ultrasound no hydronephrosis #2 low normal blood pressures on midodrine #3 lower extremity edema Plan: #1 renal function stable. #2 continue with bicarb drip #3 Lasix 60 mg IV push once. Check renal labs in the morning. #4 avoid nephrotoxic agents
[2021-12-29 16:46] LABS: Glucose,Whole Blood 225 mg/dL (75-99)
[2021-12-29 20:14] LABS: Glucose,Whole Blood 217 mg/dL (75-99)
[2021-12-29] MEDS: PRAVASTATIN SODIUM 20 MG TAB PO SCH (20:23)
[2021-12-29] MEDS: ARIPiprazole 5 MG TAB PO SCH (20:23)
[2021-12-30] MEDS: ceFAZolin 3 GM in SODIUM CHLORIDE 0.9% 100 ML IVPB SCH ×3 (03:11→20:00)
[2021-12-30 07:00] LABS: Glucose,Whole Blood 135 mg/dL (75-99)
[2021-12-30] MEDS: MIDODRINE 5 MG TAB PO SCH ×2 (08:18→17:02)
[2021-12-30] MEDS: HEPARIN SODIUM,PORCINE/PF 5,000 UNIT/0.5 ML SYRINGE SQ SCH ×2 (08:18→16:02)
[2021-12-30] MEDS: DULoxetine HCL 30 MG CAPSULE.DR PO SCH (08:18)
[2021-12-30] MEDS: INSULIN DETEMIR (LEVEMIR) 100 UNIT/ML SYR SQ SCH (08:19)
[2021-12-30] MEDS: INSULIN ASPART (NovoLOG) 100 UNIT/ML VIAL SQ SCH ×4 (08:19→20:00)
[2021-12-30] MEDS: DEXTROSE 5% IN WATER 1,000 ML with SODIUM BICARB (1 MEQ/ML) 150 ML IV SCH (10:16)
[2021-12-30 10:52] LABS: Anion Gap 10.7 mmol/L (10.00-18.00); BUN/Creat Ratio 18.91 Ratio (12.00-20.00); Blood Urea Nitrogen 46.9 mg/dL (9.0-27.0); Carbon Dioxide 20.8 mmol/L (20.0-27.5); Non-African American GFR(CKD) 20.7 (60.0-200.0)
--- NOTE | 2021-12-30 11:04 | P.PN ---
Subjective Progress Note Date: 12/28/21 Patient is a 56-year-old female with a known history of hypertension, hyperlipidemia, diabetes type 2, bilateral peripheral neuropathy and chronic venous stasis and chronic left foot wound initially presented to [facility] due to increasing drainage and purulent discharge from the left foot wound. Patient was transferred to [facility] for debridement and antibiotics. Patient was also found to have acute kidney injury. Otherwise patient denied any complaints of chest pain or shortness of breath. No cough or sputum production. No nausea vomiting or abdominal pain or diarrhea. Denies any dysuria or hematuria. Laboratory data at the [facility] showed creatinine level 2.3 and creatinine level at baseline 0.9 Patient is currently on antibiotics and above Augmentin and Bactrim as an outpatient patient is also on Lasix. 12/28/2021. Patient is currently resting in bed. Awake alert and oriented x3. No fever no chills. No complaints of chest pain or shortness breath. No nausea vomiting abdominal diarrhea. Otherwise laboratory showed WBC 5.23 hemoglobin 8.0 and platelets 131 sodium 134 potassium 5.1 chloride 105 bicarb is 19 BUN 52.4 and creatinine 2.8 Patient is tolerating oral diet. No complaints of constipation. Patient is being continued on antibiotics in the form of cefazolin. Wound cultures are pending. Nephrology is also on board. Currently on wound care. Current medications reviewed. Objective - Vital Signs Vital signs: Vital Signs Temp 98.4 F 12/28/21 21:11 Pulse 78 12/28/21 21:11 Resp 16 12/28/21 21:11 BP 115/67 12/28/21 21:11 Pulse Ox 99 12/28/21 21:11 Intake & Output 12/28/21 12/28/21 12/29/21 06:59 18:59 06:59 Intake Total 250 Output Total 800 Balance -550 Intake: Oral 250 Output: Urine 800 Other: Voiding Method External Catheter External Catheter # Voids 1 1 # Bowel Movements 0 1 - Exam PHYSICAL EXAMINATION: Patient is lying in the bed comfortably, no acute distress, awake alert and oriented.. HEENT: Normocephalic. Neck is supple. Pupils reactive. Nostrils clear. Oral cavity is moist. Neck reveals no JVD, carotid bruits, or thyromegaly. CHEST EXAMINATION: Trachea is central. Symmetrical expansion. Lung ansari clear to auscultation and percussion. CARDIAC: Normal S1, S2 with no gallops. No murmurs ABDOMEN: Soft. Bowel sounds normal. No organomegaly. No abdominal bruits. Extremities: reveal no edema. Left foot plantar ulcer with purulent base. No clubbing or cyanosis Neurologically awake, alert, oriented x3 with well-coordinated movements. No focal deficits noted Skin: No rash or skin lesions. Psychiatric: Coperative. Nonsuicidal Musculoskeletal: No joint swelling or deformity. Normal range of motion. - Labs CBC & Chem 7: 12/29/21 05:36 12/30/21 05:48 Labs: Abnormal Lab Results - Last 24 Hours (Table) 12/28/21 12/28/21 12/28/21 Range/Units 06:30 06:30 06:51 RBC 2.83 L (4.10-5.20) X 10*6/uL Hgb 8.0 L (12.0-15.0) g/dL Hct 25.2 L (37.2-46.3) % MCHC 31.7 L (32.0-37.0) g/dL RDW 14.6 H (11.5-14.5) % Plt Count 131 L (140-440) X 10*3/uL ESR 39 H (0-30) mm/Hr Sodium 134 L (135-145) mmol/L Carbon Dioxide 19.0 L (20.0-27.5) mmol/L BUN 52.4 H (9.0-27.0) mg/dL Creatinine 2.8 H (0.6-1.5) mg/dL Est GFR (CKD-EPI)AfAm 20.7 L (60.0-200.0) Est GFR (CKD-EPI)NonAf 17.9 L (60.0-200.0) POC Glucose (mg/dL) 118 H (75-99) mg/dL Calcium 8.4 L (8.7-10.3) mg/dL C-Reactive Protein 1.30 H (0.00-0.80) mg/dL Urine Appearance (Clear) Urine Ketones (Negative) Ur Leukocyte Esterase (Negative) Urine WBC (0-5) /hpf Amorphous Sediment (None) /hpf Urine Bacteria (None) /hpf Urine Mucus (None) /hpf 12/28/21 12/28/21 12/28/21 Range/Units 10:30 11:20 16:47 RBC (4.10-5.20) X 10*6/uL Hgb (12.0-15.0) g/dL Hct (37.2-46.3) % MCHC (32.0-37.0) g/dL RDW (11.5-14.5) % Plt Count (140-440) X 10*3/uL ESR (0-30) mm/Hr Sodium (135-145) mmol/L Carbon Dioxide (20.0-27.5) mmol/L BUN (9.0-27.0) mg/dL Creatinine (0.6-1.5) mg/dL Est GFR (CKD-EPI)AfAm (60.0-200.0) Est GFR (CKD-EPI)NonAf (60.0-200.0) POC Glucose (mg/dL) 157 H 207 H (75-99) mg/dL Calcium (8.7-10.3) mg/dL C-Reactive Protein (0.00-0.80) mg/dL Urine Appearance Turbid H (Clear) Urine Ketones Trace H (Negative) Ur Leukocyte Esterase Large H (Negative) Urine WBC 48 H (0-5) /hpf Amorphous Sediment Rare H (None) /hpf Urine Bacteria Occasional H (None) /hpf Urine Mucus Rare H (None) /hpf 12/28/21 Range/Units 20:53 RBC (4.10-5.20) X 10*6/uL Hgb (12.0-15.0) g/dL Hct (37.2-46.3) % MCHC (32.0-37.0) g/dL RDW (11.5-14.5) % Plt Count (140-440) X 10*3/uL ESR (0-30) mm/Hr Sodium (135-145) mmol/L Carbon Dioxide (20.0-27.5) mmol/L BUN (9.0-27.0) mg/dL Creatinine (0.6-1.5) mg/dL Est GFR (CKD-EPI)AfAm (60.0-200.0) Est GFR (CKD-EPI)NonAf (60.0-200.0) POC Glucose (mg/dL) 245 H (75-99) mg/dL Calcium (8.7-10.3) mg/dL C-Reactive Protein (0.00-0.80) mg/dL Urine Appearance (Clear) Urine Ketones (Negative) Ur Leukocyte Esterase (Negative) Urine WBC (0-5) /hpf Amorphous Sediment (None) /hpf Urine Bacteria (None) /hpf Urine Mucus (None) /hpf Microbiology - Last 24 Hours (Table) 12/28/21 13:00 Wound Culture - Preliminary Foot - Left Assessment and Plan Assessment: Left foot diabetic ulcer with infection Acute kidney injury. Possible ATN due to hypoperfusion/hypotension. Diabetes type 2 insulin-dependent. A1c 6.7 Mild hyperkalemia due to acute kidney injury 5.3 Normocytic anemia Hypovolemic hyponatremia morbid obesity BMI 50.0 DVT prophylaxis plan: Patient will be continued on antibiotics in the form of cefazolin. Continue with IV hydration and monitor renal function closely. Follow-up wound cultures and ID and nephrology was consulted. IV fluids changed to bicarb drip as per nephrology. Lisinopril is on hold due to mild hyperkalemia and acute kidney injury. Continue with home medications. Continue with insulin regimen and insulin sliding scale. Continue to follow closely. Pain control with Tylenol. Time with Patient: Greater than 30
--- NOTE | 2021-12-30 11:06 | P.PN ---
Subjective Progress Note Date: 12/29/21 Patient is a 56-year-old female with a known history of hypertension, hyperlipidemia, diabetes type 2, bilateral peripheral neuropathy and chronic venous stasis and chronic left foot wound initially presented to [facility] due to increasing drainage and purulent discharge from the left foot wound. Patient was transferred to [facility] for debridement and antibiotics. Patient was also found to have acute kidney injury. Otherwise patient denied any complaints of chest pain or shortness of breath. No cough or sputum production. No nausea vomiting or abdominal pain or diarrhea. Denies any dysuria or hematuria. Laboratory data at the [facility] showed creatinine level 2.3 and creatinine level at baseline 0.9 Patient is currently on antibiotics and above Augmentin and Bactrim as an outpatient patient is also on Lasix. 12/28/2021. Patient is currently resting in bed. Awake alert and oriented x3. No fever no chills. No complaints of chest pain or shortness breath. No nausea vomiting abdominal diarrhea. Otherwise laboratory showed WBC 5.23 hemoglobin 8.0 and platelets 131 sodium 134 potassium 5.1 chloride 105 bicarb is 19 BUN 52.4 and creatinine 2.8 Patient is tolerating oral diet. No complaints of constipation. Patient is being continued on antibiotics in the form of cefazolin. Wound cultures are pending. Nephrology is also on board. Currently on wound care. 12/29/2021. Patient is resting in the bed. Awake alert and oriented. No nausea vomiting or abdominal pain or diarrhea. Tolerating oral diet. Laboratory showed WBC 5.8 hemoglobin 8.0 and platelets 130 Sodium 132 potassium 4.3 BUN 53.5 and creatinine level is about the same at 2.8. Calcium 8.1. Patient is being continued on cefazolin and wound cultures are pending. ID and nephrology is on board. Blood sugar is better controlled. Current medications reviewed. Objective - Vital Signs Vital signs: Vital Signs Temp 97.6 F 12/29/21 19:44 Pulse 57 L 12/29/21 19:44 Resp 18 12/29/21 19:44 BP 119/64 12/29/21 19:44 Pulse Ox 97 12/29/21 19:44 Intake & Output 12/29/21 12/29/21 12/30/21 06:59 18:59 06:59 Output Total 1 Balance -1 Output: Stool 1 Other: Voiding Method Bedside Commode External Catheter External Catheter # Voids 3 1 # Bowel Movements 2 1 - Exam PHYSICAL EXAMINATION: Patient is lying in the bed comfortably, no acute distress, awake alert and oriented.. HEENT: Normocephalic. Neck is supple. Pupils reactive. Nostrils clear. Oral cavity is moist. Neck reveals no JVD, carotid bruits, or thyromegaly. CHEST EXAMINATION: Trachea is central. Symmetrical expansion. Lung ansari clear to auscultation and percussion. CARDIAC: Normal S1, S2 with no gallops. No murmurs ABDOMEN: Soft. Bowel sounds normal. No organomegaly. No abdominal bruits. Extremities: reveal no edema. Left foot plantar ulcer with purulent base. No clubbing or cyanosis Neurologically awake, alert, oriented x3 with well-coordinated movements. No focal deficits noted Skin: No rash or skin lesions. Psychiatric: Coperative. Nonsuicidal Musculoskeletal: No joint swelling or deformity. Normal range of motion. - Labs CBC & Chem 7: 12/29/21 05:36 12/30/21 05:48 Labs: Abnormal Lab Results - Last 24 Hours (Table) 12/29/21 12/29/21 12/29/21 Range/Units 05:36 05:36 06:49 RBC 2.87 L (4.10-5.20) X 10*6/uL Hgb 8.0 L (12.0-15.0) g/dL Hct 26.2 L (37.2-46.3) % MCHC 30.5 L (32.0-37.0) g/dL Plt Count 130 L (140-440) X 10*3/uL Carbon Dioxide 19.4 L (20.0-27.5) mmol/L BUN 53.5 H (9.0-27.0) mg/dL Creatinine 2.8 H (0.6-1.5) mg/dL Est GFR (CKD-EPI)AfAm 20.4 L (60.0-200.0) Est GFR (CKD-EPI)NonAf 17.6 L (60.0-200.0) Glucose 131 H (70-110) mg/dL POC Glucose (mg/dL) 149 H (75-99) mg/dL Calcium 8.1 L (8.7-10.3) mg/dL 12/29/21 12/29/21 12/29/21 Range/Units 11:40 16:44 20:13 RBC (4.10-5.20) X 10*6/uL Hgb (12.0-15.0) g/dL Hct (37.2-46.3) % MCHC (32.0-37.0) g/dL Plt Count (140-440) X 10*3/uL Carbon Dioxide (20.0-27.5) mmol/L BUN (9.0-27.0) mg/dL Creatinine (0.6-1.5) mg/dL Est GFR (CKD-EPI)AfAm (60.0-200.0) Est GFR (CKD-EPI)NonAf (60.0-200.0) Glucose (70-110) mg/dL POC Glucose (mg/dL) 214 H 225 H 217 H (75-99) mg/dL Calcium (8.7-10.3) mg/dL Microbiology - Last 24 Hours (Table) 12/28/21 13:00 Gram Stain - Preliminary Foot - Left Wound Culture - Preliminary Assessment and Plan Assessment: Left foot diabetic ulcer with infection Acute kidney injury. Possible ATN due to hypoperfusion/hypotension. Diabetes type 2 insulin-dependent. A1c 6.7 Mild hyperkalemia due to acute kidney injury 5.3 Normocytic anemia Hypovolemic hyponatremia morbid obesity BMI 50.0 DVT prophylaxis plan: Patient will be continued on antibiotics in the form of cefazolin. Continue with IV hydration and monitor renal function closely. Follow-up wound cultures and ID and nephrology was consulted. IV fluids changed to bicarb drip as per nephrology. Lisinopril is on hold due to mild hyperkalemia and acute kidney injury. Continue with home medications. Continue with insulin regimen and insulin sliding scale. Continue to follow closely. Pain control with Tylenol. Time with Patient: Greater than 30
[2021-12-30 11:47] LABS: Glucose,Whole Blood 207 mg/dL (75-99)
--- NOTE | 2021-12-30 14:23 | P.PN ---
Subjective Progress Note Date: 12/30/21 Follow-up for acute kidney injury. Objective - Vital Signs Vital signs: Vital Signs Temp 98.4 F 12/30/21 14:00 Pulse 66 12/30/21 14:00 Resp 18 12/30/21 14:00 BP 139/64 12/30/21 14:00 Pulse Ox 97 12/30/21 14:00 Intake & Output 12/29/21 12/30/21 12/30/21 18:59 06:59 18:59 Intake Total 600 Output Total 1 Balance -1 600 Intake: Intake, IV Titration 600 Amount Dextrose 5% in Water 1, 600 000 ml @ 50 mls/hr IV . Q23H KASANDRA with Sodium Bicarb (1 Meq/ml) 150 ml Rx#:[id number] Output: Stool 1 Other: Voiding Method External Catheter External Catheter # Voids 1 3 1 # Bowel Movements 1 1 1 - Exam No acute distress S1-S2 heard Decreased breath sounds Lower extremity edema - Labs CBC & Chem 7: 12/29/21 05:36 12/30/21 05:48 Labs: Abnormal Lab Results - Last 24 Hours (Table) 12/29/21 12/29/21 12/30/21 Range/Units 16:44 20:13 05:48 BUN 46.9 H (9.0-27.0) mg/dL Creatinine 2.5 H (0.6-1.5) mg/dL Est GFR (CKD-EPI)AfAm 24.0 L (60.0-200.0) Est GFR (CKD-EPI)NonAf 20.7 L (60.0-200.0) Glucose 128 H (70-110) mg/dL POC Glucose (mg/dL) 225 H 217 H (75-99) mg/dL Calcium 8.0 L (8.7-10.3) mg/dL 12/30/21 12/30/21 Range/Units 06:58 11:46 BUN (9.0-27.0) mg/dL Creatinine (0.6-1.5) mg/dL Est GFR (CKD-EPI)AfAm (60.0-200.0) Est GFR (CKD-EPI)NonAf (60.0-200.0) Glucose (70-110) mg/dL POC Glucose (mg/dL) 135 H 207 H (75-99) mg/dL Calcium (8.7-10.3) mg/dL Microbiology - Last 24 Hours (Table) 12/28/21 13:00 Gram Stain - Final Foot - Left Wound Culture - Final Assessment and Plan Assessment: #1 acute kidney injury secondary to hemodynamic ATN with low blood pressures. -UA pyuria with ketones -Baseline creatinine 0.9 MG per DL -Renal ultrasound no hydronephrosis #2 low normal blood pressures on midodrine #3 lower extremity edema Plan: #1 renal function stable. #2 stop bicarb drip. Add Lasix 40 mg IV twice a day. #3 avoid nephrotoxic agents
[2021-12-30] MEDS: FUROSEMIDE 10 MG/ML 4 ML VIAL IV SCH ×2 (15:14→20:00)
[2021-12-30 17:05] LABS: Glucose,Whole Blood 230 mg/dL (75-99)
--- NOTE | 2021-12-30 17:05 | P.PN ---
Subjective Progress Note Date: 12/29/21 Principal diagnosis: Left diabetic foot ulcer and infection Patient is a 56-year-old female with a past medical history negative for diabetes mellitus and left diabetic foot ulcer with underlying Osteomyelitis, patient presented to hospital with reopening of the left foot plantar wound and bleeding, also noticed to have acute renal failure. On today's evaluation that is 12/29/2021, the patient remains to be afebrile , the patient is breathing comfortably on room air, no chest pain shortness of breath or cough no nausea no vomiting no abdominal pain no diarrhea Objective - Vital Signs Vital signs: Vital Signs Temp 98.3 F 12/29/21 14:00 Pulse 59 L 12/29/21 14:00 Resp 16 12/29/21 14:00 BP 117/61 12/29/21 14:00 Pulse Ox 94 L 12/29/21 14:00 Intake & Output 12/28/21 12/29/21 12/29/21 18:59 06:59 18:59 Intake Total 250 Output Total 800 1 Balance -550 -1 Intake: Oral 250 Output: Urine 800 Stool 1 Other: Voiding Method External Catheter Bedside Commode External Catheter # Voids 1 3 1 # Bowel Movements 1 2 1 - Exam GENERAL DESCRIPTION: Middle-age female lying in bed in no distress RESPIRATORY SYSTEM: Unlabored breathing , decreased breath sounds at bases HEART: S1 S2 regular rate and rhythm , ABDOMEN: Soft , no tenderness EXTREMITIES: Left foot plantar callus ulceration with some bleeding no purulence was noticed - Labs CBC & Chem 7: 12/29/21 05:36 12/30/21 05:48 Labs: Abnormal Lab Results - Last 24 Hours (Table) 12/28/21 12/28/21 12/29/21 Range/Units 16:47 20:53 05:36 RBC 2.87 L (4.10-5.20) X 10*6/uL Hgb 8.0 L (12.0-15.0) g/dL Hct 26.2 L (37.2-46.3) % MCHC 30.5 L (32.0-37.0) g/dL Plt Count 130 L (140-440) X 10*3/uL Carbon Dioxide (20.0-27.5) mmol/L BUN (9.0-27.0) mg/dL Creatinine (0.6-1.5) mg/dL Est GFR (CKD-EPI)AfAm (60.0-200.0) Est GFR (CKD-EPI)NonAf (60.0-200.0) Glucose (70-110) mg/dL POC Glucose (mg/dL) 207 H 245 H (75-99) mg/dL Calcium (8.7-10.3) mg/dL 12/29/21 12/29/21 12/29/21 Range/Units 05:36 06:49 11:40 RBC (4.10-5.20) X 10*6/uL Hgb (12.0-15.0) g/dL Hct (37.2-46.3) % MCHC (32.0-37.0) g/dL Plt Count (140-440) X 10*3/uL Carbon Dioxide 19.4 L (20.0-27.5) mmol/L BUN 53.5 H (9.0-27.0) mg/dL Creatinine 2.8 H (0.6-1.5) mg/dL Est GFR (CKD-EPI)AfAm 20.4 L (60.0-200.0) Est GFR (CKD-EPI)NonAf 17.6 L (60.0-200.0) Glucose 131 H (70-110) mg/dL POC Glucose (mg/dL) 149 H 214 H (75-99) mg/dL Calcium 8.1 L (8.7-10.3) mg/dL Microbiology - Last 24 Hours (Table) 12/28/21 13:00 Gram Stain - Preliminary Foot - Left Wound Culture - Preliminary Assessment and Plan (1) Foot ulcer, left Current Visit: No Status: Acute Code(s): L97.529 - NON-PRESSURE CHRONIC ULCER OTH PRT LEFT FOOT W UNSP SEVERITY SNOMED Code(s): 194259278 Plan: 1patient with left diabetic foot plantar ulcer likely infected callus apparently the patient was complaining of some purulent drainage to the [facility] however she told me it was mostly bloody drainage patient currently do not have any fluctuation or drainage to the left foot plantar ulcer no significant redness. 2renal insufficiency could be related to the outpatient Bactrim use. 3cephalexin allergy mostly nausea vomiting possibly GI side effect rather than true allergy she has tolerated cefazolin without any problem so far. 4 x-ray of the left foot did not show any bony destruction, culture were obtained and are currently pending 5patient to continue with the cefazolin, local wound care with Aquacel silver dressing changed every 48 hour and monitor clinical course closely Time with Patient: Less than 30
--- NOTE | 2021-12-30 17:07 | P.PN ---
Subjective Progress Note Date: 12/30/21 Principal diagnosis: Left diabetic foot ulcer and infection Patient is a 56-year-old female with a past medical history negative for diabetes mellitus and left diabetic foot ulcer with underlying Osteomyelitis, patient presented to hospital with reopening of the left foot plantar wound and bleeding, also noticed to have acute renal failure. On today's evaluation that is 12/30/2021, the patient continues to be afebrile , the patient is breathing comfortably on room air, the patient denies chest pain shortness of breath or cough no nausea no vomiting no abdominal pain no diarrhea Objective - Vital Signs Vital signs: Vital Signs Temp 98.4 F 12/30/21 14:00 Pulse 66 12/30/21 14:00 Resp 18 12/30/21 14:00 BP 139/64 12/30/21 14:00 Pulse Ox 97 12/30/21 14:00 Intake & Output 12/29/21 12/30/21 12/30/21 18:59 06:59 18:59 Intake Total 600 Output Total 1 Balance -1 600 Intake: Intake, IV Titration 600 Amount Dextrose 5% in Water 1, 600 000 ml @ 50 mls/hr IV . Q23H KASANDRA with Sodium Bicarb (1 Meq/ml) 150 ml Rx#:[id number] Output: Stool 1 Other: Voiding Method External Catheter External Catheter # Voids 1 3 1 # Bowel Movements 1 1 1 - Exam GENERAL DESCRIPTION: Middle-age female lying in bed in no distress RESPIRATORY SYSTEM: Unlabored breathing , decreased breath sounds at bases HEART: S1 S2 regular rate and rhythm , ABDOMEN: Soft , no tenderness EXTREMITIES: Left foot plantar wound is currently dressed no drainage on the dressing - Labs CBC & Chem 7: 12/29/21 05:36 12/30/21 05:48 Labs: Abnormal Lab Results - Last 24 Hours (Table) 12/29/21 12/29/21 12/30/21 Range/Units 16:44 20:13 05:48 BUN 46.9 H (9.0-27.0) mg/dL Creatinine 2.5 H (0.6-1.5) mg/dL Est GFR (CKD-EPI)AfAm 24.0 L (60.0-200.0) Est GFR (CKD-EPI)NonAf 20.7 L (60.0-200.0) Glucose 128 H (70-110) mg/dL POC Glucose (mg/dL) 225 H 217 H (75-99) mg/dL Calcium 8.0 L (8.7-10.3) mg/dL 12/30/21 12/30/21 Range/Units 06:58 11:46 BUN (9.0-27.0) mg/dL Creatinine (0.6-1.5) mg/dL Est GFR (CKD-EPI)AfAm (60.0-200.0) Est GFR (CKD-EPI)NonAf (60.0-200.0) Glucose (70-110) mg/dL POC Glucose (mg/dL) 135 H 207 H (75-99) mg/dL Calcium (8.7-10.3) mg/dL Microbiology - Last 24 Hours (Table) 12/28/21 13:00 Gram Stain - Final Foot - Left Wound Culture - Final Assessment and Plan (1) Foot ulcer, left Current Visit: No Status: Acute Code(s): L97.529 - NON-PRESSURE CHRONIC ULCER OTH PRT LEFT FOOT W UNSP SEVERITY SNOMED Code(s): 120545033 Plan: 1patient with left diabetic foot plantar ulcer likely infected callus apparently the patient was complaining of some purulent drainage to the [facility] however she told me it was mostly bloody drainage patient currently do not have any fluctuation or drainage to the left foot plantar ulcer no significant redness. 2renal insufficiency could be related to the outpatient Bactrim use. 3cephalexin allergy mostly nausea vomiting possibly GI side effect rather than true allergy she has tolerated cefazolin without any problem so far. 4 x-ray of the left foot did not show any bony destruction, culture were obtained and are negative so far 5patient to continue with the cefazolin and may recommend a short course of oral Augmentin on discharge, local wound care with Aquacel silver dressing changed every 48 hour and monitor clinical course closely Time with Patient: Less than 30
[2021-12-30 19:55] LABS: Glucose,Whole Blood 317 mg/dL (75-99)
[2021-12-30] MEDS: PRAVASTATIN SODIUM 20 MG TAB PO SCH (20:00)
[2021-12-30] MEDS: ARIPiprazole 5 MG TAB PO SCH (20:00)
[2021-12-31] MEDS: ceFAZolin 3 GM in SODIUM CHLORIDE 0.9% 100 ML IVPB SCH ×2 (02:11→11:33)
[2021-12-31] MEDS: HEPARIN SODIUM,PORCINE/PF 5,000 UNIT/0.5 ML SYRINGE SQ SCH ×3 (02:11→17:05)
[2021-12-31 05:17] LABS: Glucose,Whole Blood 167 mg/dL (75-99)
[2021-12-31 06:49] LABS: Glucose,Whole Blood 174 mg/dL (75-99)
[2021-12-31] MEDS: INSULIN DETEMIR (LEVEMIR) 100 UNIT/ML SYR SQ SCH (07:26)
[2021-12-31] MEDS: INSULIN ASPART (NovoLOG) 100 UNIT/ML VIAL SQ SCH ×2 (07:26→12:05)
[2021-12-31] MEDS: MIDODRINE 5 MG TAB PO SCH (07:27)
[2021-12-31] MEDS: FUROSEMIDE 10 MG/ML 4 ML VIAL IV SCH (07:27)
[2021-12-31] MEDS: DEXTROSE 5% IN WATER 1,000 ML with SODIUM BICARB (1 MEQ/ML) 150 ML IV SCH (07:28)
[2021-12-31 07:33] VITALS: TEMP 97.8
[2021-12-31 09:00] LABS: African American GFR (CKD) 30.2 (60.0-200.0); Anion Gap 9.4 mmol/L (10.00-18.00); BUN/Creat Ratio 20.98 Ratio (12.00-20.00); Calcium 8.2 mg/dL (8.7-10.3); Carbon Dioxide 22.3 mmol/L (20.0-27.5); Non-African American GFR(CKD) 26.1 (60.0-200.0); Potassium 3.8 mmol/L (3.5-5.5)
[2021-12-31] MEDS ORDERED: DULoxetine HCL 60 MG CAPSULE.DR PO SCH (09:00)
--- NOTE | 2021-12-31 09:32 | P.PN ---
Subjective Patient is seen in follow-up for acute kidney injury. Renal function improving. On IV Lasix. Good urine output. Denies chest pain or shortness of breath. Wants to go home. Vital signs are stable. General: Awake and alert. No acute distress. HEENT: Head exam is unremarkable. LUNGS: Breath sounds decreased. HEART: Rate and Rhythm are regular. ABDOMEN: Soft, obese. EXTREMITITES: Trace edema. Chronic changes noted. Objective - Vital Signs Vital signs: Vital Signs Temp 97.8 F 12/31/21 07:01 Pulse 57 L 12/31/21 07:26 Resp 17 12/31/21 07:26 BP 135/73 12/31/21 07:01 Pulse Ox 98 12/31/21 07:01 FiO2 Intake & Output 12/30/21 12/31/21 12/31/21 18:59 06:59 18:59 Intake Total 800 Balance 800 Intake: Intake, IV Titration 800 Amount Dextrose 5% in Water 1, 600 000 ml @ 50 mls/hr IV . Q23H KASANDRA with Sodium Bicarb (1 Meq/ml) 150 ml Rx#:[id number] ceFAZolin 3 gm In Sodium 200 Chloride 0.9% 100 ml @ 200 mls/hr IVPB Q8H KASANDRA Rx#:[id number] Other: Voiding Method External Catheter # Voids 1 1 # Bowel Movements 1 - Labs CBC & Chem 7: 12/29/21 05:36 12/31/21 05:10 Labs: Abnormal Lab Results - Last 24 Hours (Table) 12/30/21 12/30/21 12/30/21 Range/Units 05:48 11:46 16:56 Anion Gap (10.00-18.00) mmol/L BUN 46.9 H (9.0-27.0) mg/dL Creatinine 2.5 H (0.6-1.5) mg/dL Est GFR (CKD-EPI)AfAm 24.0 L (60.0-200.0) Est GFR (CKD-EPI)NonAf 20.7 L (60.0-200.0) BUN/Creatinine Ratio (12.00-20.00) Ratio Glucose 128 H (70-110) mg/dL POC Glucose (mg/dL) 207 H 230 H (75-99) mg/dL Calcium 8.0 L (8.7-10.3) mg/dL 12/30/21 12/31/21 12/31/21 Range/Units 19:54 04:41 05:10 Anion Gap 9.40 L (10.00-18.00) mmol/L BUN 43.0 H (9.0-27.0) mg/dL Creatinine 2.1 H (0.6-1.5) mg/dL Est GFR (CKD-EPI)AfAm 30.2 L (60.0-200.0) Est GFR (CKD-EPI)NonAf 26.1 L (60.0-200.0) BUN/Creatinine Ratio 20.98 H (12.00-20.00) Ratio Glucose 166 H (70-110) mg/dL POC Glucose (mg/dL) 317 H 167 H (75-99) mg/dL Calcium 8.2 L (8.7-10.3) mg/dL 12/31/21 Range/Units 06:47 Anion Gap (10.00-18.00) mmol/L BUN (9.0-27.0) mg/dL Creatinine (0.6-1.5) mg/dL Est GFR (CKD-EPI)AfAm (60.0-200.0) Est GFR (CKD-EPI)NonAf (60.0-200.0) BUN/Creatinine Ratio (12.00-20.00) Ratio Glucose (70-110) mg/dL POC Glucose (mg/dL) 174 H (75-99) mg/dL Calcium (8.7-10.3) mg/dL Microbiology - Last 24 Hours (Table) 12/28/21 13:00 Gram Stain - Final Foot - Left Wound Culture - Final Assessment and Plan Plan: Assessment: 1. Acute kidney injury secondary to ATN secondary to hypotension. Creatinine 0.9 in January 2021. Creatinine peaked at 2.8 this admission was 2.1 today. No proteinuria on UA. No hydronephrosis noted on kidney ultrasound. 2. Lower extremity edema. 3. Metabolic acidosis secondary to acute kidney injury maintained on bicarb drip. Improved. 4. Anemia. Iron deficiency noted. 5. Diabetes mellitus. Plan: Maintain IV Lasix. Transition to oral Demadex 20 mg daily upon discharge. Add maintenance potassium supplementation. Avoid nephrotoxins. Add IV iron. Hep-Lock IV fluids. Hold midodrine for systolic blood pressure above 110. Repeat BMP and magnesium level 2-3 days postdischarge. Follow up outpatient in 1 week.
[2021-12-31] MEDS ORDERED: POTASSIUM CHLORIDE ER 10 MEQ TAB.ER.PRT PO SCH (09:45)
[2021-12-31 11:40] LABS: Glucose,Whole Blood 244 mg/dL (75-99)
--- NOTE | 2021-12-31 11:50 | CDI ---
Documentation Clarification Form Date: 12/31/2021 11:25:27 AM From: Erendira Babin CCS, CCDS Admit Date: 12/26/2021 09:40:00 PM Patient Name: Cristal Ferrer Visit Number: [id number] Discharge Date: ATTENTION: The Clinical Documentation Specialists (CDI) and [facility] Coding Staff appreciate your assistance in clarifying documentation. Please respond to the clarification below the line at the bottom and electronically sign. The CDI & [facility] Coding staff will review the response and follow-up if needed. Please note: Queries are made part of the Legal Health Record. If you have any questions, please contact the author of this message via ITS. Dr. Julianna Carbajalved: UA Pyuria with ketones and baseline Creatinine 0.9 MG per DL is documented in the 12/29 & 12/30 Nephrology Progress Notes without further specificity. Additional clarification regarding this diagnosis is requested. History/Risk Factors per the 12/27 H/P: CHF, IDDM II, GERD, Hypertension, Osteoarthritis, Morbid Obesity (BMI 50.0), Bilateral peripheral neuropathy, Chronic venous stasis with Dermatosis & Pedal edema, Depression, Former smoker. Clinical Indicators: Presented to [facility] on 12/27 via transfer from [facility] with a left foot wound & infection with drainage, found to be in KRIS. Admit with Left Foot Diabetic Ulcer with Infection, KRIS possible ATN due to Hypoperfusion/Hypotension, IDDM II, Mild Hyperkalemia, Normocytic Anemia, Hypovolemic Hyponatremia and Morbid Obesity w/BMI 50.0. 12/26 VS: T 98.2, P 72, R 16, BP 104/60, PO 99 RA, BMI: 50.0 12/26 LAB: WBC 5.7, Hgb 8.8, Hct 28.0, Pl Ct 136; Na 134, K 5.3, Cl 109, CO2 17, BUN 50, Cr 2.35, Gluc 107, Hgb A1c 6.7, Iron 40 12/28 UA: Yellow, Turbid, Trace ketones, Large Esterase, WBC 48. No Urine culture. 12/28 Wound culture: final: negative. Treatment 12/27: IV Na Cl 1,000 mls @ 50 mls/hr q20H, IV Cefazolin 100 mls @ 200 mls/hr q8H, Insulin sq 30 units, IV Zofran 4 mg q6H/prn, IV Dextrose/Water w/Na Bicarb 1.150 mls @ 50 mls/hr q23H, Heparin 5,000 units sq q8H. Please clarify if there is an additional diagnosis for this patient: [ ] UTI [ ] UTI related to External Catheter [ ] UTI not related to External Catheter [ ] Other, please specify [ ] Unable to determine Present on Admission: [ ] Yes [ ] No (Template Last Revised: October 2020) MTDD
--- NOTE | 2021-12-31 15:08 | P.PN ---
Subjective Progress Note Date: 12/30/21 Patient is a 56-year-old female with a known history of hypertension, hyperlipidemia, diabetes type 2, bilateral peripheral neuropathy and chronic venous stasis and chronic left foot wound initially presented to [facility] due to increasing drainage and purulent discharge from the left foot wound. Patient was transferred to [facility] for debridement and antibiotics. Patient was also found to have acute kidney injury. Otherwise patient denied any complaints of chest pain or shortness of breath. No cough or sputum production. No nausea vomiting or abdominal pain or diarrhea. Denies any dysuria or hematuria. Laboratory data at the [facility] showed creatinine level 2.3 and creatinine level at baseline 0.9 Patient is currently on antibiotics and above Augmentin and Bactrim as an outpatient patient is also on Lasix. 12/28/2021. Patient is currently resting in bed. Awake alert and oriented x3. No fever no chills. No complaints of chest pain or shortness breath. No nausea vomiting abdominal diarrhea. Otherwise laboratory showed WBC 5.23 hemoglobin 8.0 and platelets 131 sodium 134 potassium 5.1 chloride 105 bicarb is 19 BUN 52.4 and creatinine 2.8 Patient is tolerating oral diet. No complaints of constipation. Patient is being continued on antibiotics in the form of cefazolin. Wound cultures are pending. Nephrology is also on board. Currently on wound care. 12/29/2021. Patient is resting in the bed. Awake alert and oriented. No nausea vomiting or abdominal pain or diarrhea. Tolerating oral diet. Laboratory showed WBC 5.8 hemoglobin 8.0 and platelets 130 Sodium 132 potassium 4.3 BUN 53.5 and creatinine level is about the same at 2.8. Calcium 8.1. Patient is being continued on cefazolin and wound cultures are pending. ID and nephrology is on board. Blood sugar is better controlled. 12/30/2021 Patient is currently resting in bed. Awake alert and oriented 3. No complaints of chest pain or shortness breath. Left foot wound is dressed up. Renal function is stable with creatinine level II.1. patient is begun on IV Lasix and antibiotics in the form of cefazolin. Wound cultures showed no growth. ID and nephrology is on board. Follow BMP tomorrow. Current medications reviewed. Objective - Vital Signs Vital signs: Vital Signs Temp 98.3 F 12/30/21 07:33 Pulse 62 12/30/21 07:33 Resp 18 12/30/21 07:33 BP 124/65 12/30/21 07:33 Pulse Ox 98 12/30/21 07:33 Intake & Output 12/29/21 12/30/21 12/30/21 18:59 06:59 18:59 Intake Total 600 Output Total 1 Balance -1 600 Intake: Intake, IV Titration 600 Amount Dextrose 5% in Water 1, 600 000 ml @ 50 mls/hr IV . Q23H KASANDRA with Sodium Bicarb (1 Meq/ml) 150 ml Rx#:[id number] Output: Stool 1 Other: Voiding Method External Catheter External Catheter # Voids 1 3 1 # Bowel Movements 1 1 1 - Exam PHYSICAL EXAMINATION: Patient is lying in the bed comfortably, no acute distress, awake alert and oriented.. HEENT: Normocephalic. Neck is supple. Pupils reactive. Nostrils clear. Oral cavity is moist. Neck reveals no JVD, carotid bruits, or thyromegaly. CHEST EXAMINATION: Trachea is central. Symmetrical expansion. Lung ansari clear to auscultation and percussion. CARDIAC: Normal S1, S2 with no gallops. No murmurs ABDOMEN: Soft. Bowel sounds normal. No organomegaly. No abdominal bruits. Extremities: reveal no edema. Left foot plantar ulcer with purulent base. No clubbing or cyanosis Neurologically awake, alert, oriented x3 with well-coordinated movements. No focal deficits noted Skin: No rash or skin lesions. Psychiatric: Coperative. Nonsuicidal Musculoskeletal: No joint swelling or deformity. Normal range of motion. - Labs CBC & Chem 7: 12/29/21 05:36 12/31/21 05:10 Labs: Abnormal Lab Results - Last 24 Hours (Table) 12/29/21 12/29/21 12/29/21 Range/Units 11:40 16:44 20:13 BUN (9.0-27.0) mg/dL Creatinine (0.6-1.5) mg/dL Est GFR (CKD-EPI)AfAm (60.0-200.0) Est GFR (CKD-EPI)NonAf (60.0-200.0) Glucose (70-110) mg/dL POC Glucose (mg/dL) 214 H 225 H 217 H (75-99) mg/dL Calcium (8.7-10.3) mg/dL 12/30/21 12/30/21 Range/Units 05:48 06:58 BUN 46.9 H (9.0-27.0) mg/dL Creatinine 2.5 H (0.6-1.5) mg/dL Est GFR (CKD-EPI)AfAm 24.0 L (60.0-200.0) Est GFR (CKD-EPI)NonAf 20.7 L (60.0-200.0) Glucose 128 H (70-110) mg/dL POC Glucose (mg/dL) 135 H (75-99) mg/dL Calcium 8.0 L (8.7-10.3) mg/dL Microbiology - Last 24 Hours (Table) 12/28/21 13:00 Gram Stain - Preliminary Foot - Left Wound Culture - Preliminary Assessment and Plan Assessment: Left foot diabetic ulcer with infection Acute kidney injury. Possible ATN due to hypoperfusion/hypotension. Diabetes type 2 insulin-dependent. A1c 6.7 Mild hyperkalemia due to acute kidney injury 5.3 iron deficiency anemia Hypovolemic hyponatremia morbid obesity BMI 50.0 DVT prophylaxis plan: Patient will be continued on antibiotics in the form of cefazolin. Continue with IV hydration and monitor renal function closely. Follow-up wound cultures and ID and nephrology was consulted. IV fluids changed to bicarb drip as per nephrology. Lisinopril is on hold due to mild hyperkalemia and acute kidney injury. Continue with home medications. Continue with insulin regimen and insulin sliding scale. Continue to follow closely. Pain control with Tylenol. Time with Patient: Greater than 30
[2021-12-31 15:23] VITALS: BP 177/72; PULSE 71; RESP 18
[2021-12-31 16:26] LABS: Glucose,Whole Blood 245 mg/dL (75-99)
--- NOTE | 2022-01-15 13:45 | P.DS ---
Providers Date of admission: 12/26/21 21:40 Expected date of discharge: 12/31/21 Attending physician: Stephanie Rodriguez Consults: 12/27/21 02:15 Consult Physician Routine Consulting Provider: Urvashi Bowman Consult Reason/Comments: KRIS Do you want consulting provider notified?: Yes, Notify in am 12/27/21 12:30 Consult Physician Routine Consulting Provider: Shannon Garrett Consult Reason/Comments: left foot wound Do you want consulting provider notified?: Yes Primary care physician: Stated None Hospital Course: Discharge diagnosis Left foot diabetic ulcer with infection Acute kidney injury. Possible ATN due to hypoperfusion/hypotension. Diabetes type 2 insulin-dependent. A1c 6.7 Mild hyperkalemia due to acute kidney injury 5.3 iron deficiency anemia Hypovolemic hyponatremia morbid obesity BMI 50.0 DVT prophylaxis Hospital course Patient is a 56-year-old female with a known history of hypertension, hyperlipidemia, diabetes type 2, bilateral peripheral neuropathy and chronic venous stasis and chronic left foot wound initially presented to [facility] due to increasing drainage and purulent discharge from the left foot wound. Patient was transferred to [facility] for debridement and antibiotics. Patient was also found to have acute kidney injury. Otherwise patient denied any complaints of chest pain or shortness of breath. No cough or sputum production. No nausea vomiting or abdominal pain or diarrhea. Denies any dysuria or hematuria. Laboratory data at the [facility] showed creatinine level 2.3 and creatinine level at baseline 0.9 Patient is currently on antibiotics and above Augmentin and Bactrim as an outpatient patient is also on Lasix. 12/28/2021. Patient is currently resting in bed. Awake alert and oriented x3. No fever no chills. No complaints of chest pain or shortness breath. No nausea vomiting abdominal diarrhea. Otherwise laboratory showed WBC 5.23 hemoglobin 8.0 and platelets 131 sodium 134 potassium 5.1 chloride 105 bicarb is 19 BUN 52.4 and creatinine 2.8 Patient is tolerating oral diet. No complaints of constipation. Patient is being continued on antibiotics in the form of cefazolin. Wound cul tures are pending. Nephrology is also on board. Currently on wound care. 12/29/2021. Patient is resting in the bed. Awake alert and oriented. No nausea vomiting or abdominal pain or diarrhea. Tolerating oral diet. Laboratory showed WBC 5.8 hemoglobin 8.0 and platelets 130 Sodium 132 potassium 4.3 BUN 53.5 and creatinine level is about the same at 2.8. Calcium 8.1. Patient is being continued on cefazolin and wound cultures are pending. ID and nephrology is on board. Blood sugar is better controlled. 12/30/2021 Patient is currently resting in bed. Awake alert and oriented 3. No comp laints of chest pain or shortness breath. Left foot wound is dressed up. Renal function is stable with creatinine level II.1. patient is begun on IV Lasix and antibiotics in the form of cefazolin. Wound cultures showed no growth. ID and nephrology is on board. Follow BMP tomorrow. 12/31/2021 Patient is currently resting and there. Awake alert and oriented 3. No compressive chest pain or short of breath. Wound cultures show no growth. Patient will be continued on Augmentin as an outpatient to complete the course. Otherwise renal function did improve. IV Lasix changed to Demadex. Continue with potassium supplementation and iron supplementation at home. Follow with ID clinic and nephrology as outpatient. Follow with primary care physician in the next 3-5 days. Patient is being discharged home today. PHYSICAL EXAMINATION: Patient is lying in the bed comfortably, no acute distress, awake alert and oriented.. HEENT: Normocephalic. Neck is supple. Pupils reactive. Nostrils clear. Oral cavity is moist. Neck reveals no JVD, carotid bruits, or thyromegaly. CHEST EXAMINATION: Trachea is central. Symmetrical expansion. Lung ansari clear to auscultation and percussion. CARDIAC: Normal S1, S2 with no gallops. No murmurs ABDOMEN: Soft. Bowel sounds normal. No organomegaly. No abdominal bruits. Extremities: reveal no edema. Left foot plantar ulcer with purulent base. No clubbing or cyanosis Neurologically awake, alert, oriented x3 with well-coordinated movements. No focal deficits noted Skin: No rash or skin lesions. Psychiatric: Coperative. Nonsuicidal Musculoskeletal: No joint swelling or deformity. Normal range of motion. Vital signs: Vital Signs Temp 97.8 F 12/31/21 07:01 Pulse 57 L 12/31/21 07:26 Resp 17 12/31/21 07:26 BP 135/73 12/31/21 07:01 Pulse Ox 98 12/31/21 07:01 FiO2 Intake & Output 12/30/21 12/31/21 12/31/21 18:59 06:59 18:59 Intake Total 800 Balance 800 Intake: Intake, IV Titration 800 Amount Dextrose 5% in Water 1, 600 000 ml @ 50 mls/hr IV . Q23H KASANDRA with Sodium Bicarb (1 Meq/ml) 150 ml Rx#:[id number] ceFAZolin 3 gm In Sodium 200 Chloride 0.9% 100 ml @ 200 mls/hr IVPB Q8H KASANDRA Rx#:[id number] Other: Voiding Method External Catheter # Voids 1 1 # Bowel Movements 1 Patient Condition at Discharge: Stable Plan - Discharge Summary Discharge Rx Participant: No New Discharge Prescriptions: New Torsemide [Demadex] 20 mg PO DAILY #30 tablet Ferrous Sulfate [Feosol] 325 mg PO DAILY #30 tab Continue ARIPiprazole [Abilify] 5 mg PO HS Pravastatin Sodium [Pravachol] 20 mg PO HS Semaglutide [Ozempic] 1 mg SQ JOHNSON DULoxetine HCL [Cymbalta] See Taper PO DIRECTED Insulin Degludec [Tresiba Flextouch U-200 Pen] 30 units SQ DAILY Potassium Chloride [Potassium Chloride ER] 10 meq PO DAILY Amoxic-Pot Clav 875-125Mg [Augmentin 875-125] 1 tab PO Q12H 7 Days #14 tab Discontinued metFORMIN HCL [Glucophage] 500 mg PO BID lisinopriL [Zestril] 10 mg PO DAILY Furosemide [Lasix] 40 mg PO BID Sulfamethox-Tmp 800-160Mg [Bactrim DS 800-160 mg] 2 tab PO Q12H Discharge Medication List ARIPiprazole [Abilify] 5 mg PO HS 01/29/18 [History] Pravastatin Sodium [Pravachol] 20 mg PO HS 01/29/18 [History] DULoxetine HCL [Cymbalta] See Taper PO DIRECTED 12/26/21 [History] Insulin Degludec [Tresiba Flextouch U-200 Pen] 30 units SQ DAILY 12/26/21 [History] Potassium Chloride [Potassium Chloride ER] 10 meq PO DAILY 12/26/21 [History] Semaglutide [Ozempic] 1 mg SQ JOHNSON 12/26/21 [History] Amoxic-Pot Clav 875-125Mg [Augmentin 875-125] 1 tab PO Q12H 7 Days #14 tab 12/31/21 [Rx] Ferrous Sulfate [Feosol] 325 mg PO DAILY #30 tab 12/31/21 [Rx] Torsemide [Demadex] 20 mg PO DAILY #30 tablet 12/31/21 [Rx] Follow up Appointment(s)/Referral(s): Jessica Arora MD [REFERRING] - [facility] [NON-STAFF] - 1 Week Caesar Medley DO [STAFF PHYSICIAN] - 1 Week Patient Instructions/Handouts: Acute Kidney Injury (DC), Cellulitis (GEN) Discharge Disposition: HOME SELF-CARE
== END 2021-12-31 17:29 | disposition home or self-care (01) | DRG 638 ==
LOC: 4SSUR 21:40
PROVIDERS: ADMIT Hospitalist; ATTEND Hospitalist
DX: E11.621 Type 2 diabetes mellitus with foot ulcer (principal); Z68.43 Body mass index [BMI] 50.0-59.9, adult; E87.2 Acidosis; E87.1 Hypo-osmolality and hyponatremia; L97.529 Non-pressure chronic ulcer of other part of left foot with unspecified severity; E87.5 Hyperkalemia; N17.0 Acute kidney failure with tubular necrosis; E11.42 Type 2 diabetes mellitus with diabetic polyneuropathy; I11.0 Hypertensive heart disease with heart failure; I50.9 Heart failure, unspecified; E66.01 Morbid (severe) obesity due to excess calories; Z79.4 Long term (current) use of insulin; R82.81 Pyuria; E86.1 Hypovolemia; I95.9 Hypotension, unspecified; D50.9 Iron deficiency anemia, unspecified; E78.5 Hyperlipidemia, unspecified; I87.8 Other specified disorders of veins; K21.9 Gastro-esophageal reflux disease without esophagitis; M19.90 Unspecified osteoarthritis, unspecified site; F32.A Depression, unspecified; Z90.49 Acquired absence of other specified parts of digestive tract; Z90.710 Acquired absence of both cervix and uterus; Z88.1 Allergy status to other antibiotic agents; Z79.899 Other long term (current) drug therapy; Z79.84 Long term (current) use of oral hypoglycemic drugs; Z87.891 Personal history of nicotine dependence; Z87.19 Personal history of other diseases of the digestive system; Z82.49 Family history of ischemic heart disease and other diseases of the circulatory system; Z82.5 Family history of asthma and other chronic lower respiratory diseases; Z80.9 Family history of malignant neoplasm, unspecified; Z83.2 Family history of diseases of the blood and blood-forming organs and certain disorders involving the immune mechanism
CPT/HCPCS: 76770; 80048; 81001; 83036; 83540; 83550; 85025; 85652; 86140; 87070; 87205

== ENCOUNTER 2023-11-29 17:44 | Inpatient (IN) | payer MEDICARE, OTHER ==
--- NOTE | 2023-11-29 17:59 | ED ---
SOB HPI - General Chief Complaint: Shortness of Breath Stated Complaint: SOB Time Seen by Provider: 11/29/23 17:44 Source: patient, RN/MD, RN notes reviewed, old records reviewed Mode of arrival: EMS Limitations: no limitations - History of Present Illness Initial Comments: 58-year-old female with a history of renal insufficiency hypertension diabetes m orbid obesity heart failure who presents from [facility] by ambulance after presenting there after several weeks of progressively worsening shortness of breath exertional dyspnea and lower extremity edema. She has had this before she denies any fevers chills sweats no overt chest pain. She was found to have a creatinine of 2.9 with elevated BUN also x-ray evidence of congestive failure with increased pulmonary vascular congestion. She was transferred her here for further evaluation and treatment. MD Complaint: shortness of breath - Related Data Home Medications Medication Instructions Recorded Confirmed Pravastatin Sodium [Pravachol] 20 mg PO HS 01/29/18 11/29/23 Insulin Degludec [Tresiba 40 units SQ DAILY 12/26/21 11/29/23 Flextouch U-200 Pen] Semaglutide [Ozempic] 1 mg SQ MO 12/26/21 11/29/23 DULoxetine HCL [Cymbalta] 60 mg PO DAILY 11/29/23 11/29/23 Docusate [Colace] 100 mg PO BID 11/29/23 11/29/23 Ergocalciferol (Vitamin D2) 1,250 mcg PO MO 11/29/23 11/29/23 [Drisdol (50,000 Iu)] Levothyroxine Sodium [Synthroid] 88 mcg PO DAILY 11/29/23 11/29/23 Potassium Chloride 10 meq PO DAILY 11/29/23 11/29/23 Sodium Bicarbonate 325 mg PO DAILY 11/29/23 11/29/23 amLODIPine [Norvasc] 10 mg PO DAILY 11/29/23 11/29/23 busPIRone HCl [Buspar] 5 mg PO BID 11/29/23 11/29/23 calcitrioL 0.25 mcg PO DAILY 11/29/23 11/29/23 carvediloL [Coreg] 6.25 mg PO BID 11/29/23 11/29/23 Previous Rx's Medication Instructions Recorded Ferrous Sulfate [Feosol] 325 mg PO DAILY #30 tab 12/31/21 Torsemide [Demadex] 20 mg PO DAILY #30 tablet 12/31/21 Allergies Allergy/AdvReac Type Severity Reaction Status Date / Time cephalexin monohydrate AdvReac Nausea & Verified 11/29/23 19:03 [From Keflex] Vomiting Review of Systems ROS Statement: Those systems with pertinent positive or pertinent negative responses have been documented in the HPI. ROS Other: All systems not noted in ROS Statement are negative. Past Medical History Past Medical History: Heart Failure, Diabetes Mellitus, GERD/Reflux, Hypertension, Osteoarthritis (OA) Additional Past Medical History / Comment(s): morbid obesity,HF, Neuropathy bilateral legs Type 2 diabetes mellitus,Chronic venous stasis with dermatosis and pedal edema chronic, enterobacteria and enterococal wound infection 2018 History of Any Multi-Drug Resistant Organisms: Other MDRO Past Surgical History: Adenoidectomy, Section, Cholecystectomy, Hernia Repair, Hysterectomy, Orthopedic Surgery, Tonsillectomy Additional Past Surgical History / Comment(s): carple tunnel sx right hand, Partial small bowel resection with ventral hernia incarceration Past Anesthesia/Blood Transfusion Reactions: No Reported Reaction Past Psychological History: Depression Smoking Status: Former smoker Past Alcohol Use History: None Reported Past Drug Use History: None Reported - Past Family History Mother Family Medical History: Asthma, Myocardial Infarction ([place]) Father Family Medical History: Asthma, Cancer Sister(s) Family Medical History: Asthma, Deep Vein Thrombosis (DVT) General Exam - General Exam Comments Initial Comments: Is a well-developed well-nourished obese female who is awake alert oriented x 4 Limitations: no limitations General appearance: alert, anxious Head exam: Present: atraumatic, normocephalic, normal inspection Eye exam: Present: normal appearance, PERRL, EOMI. Absent: scleral icterus, conjunctival injection, periorbital swelling ENT exam: Present: normal exam, mucous membranes moist Neck exam: Present: normal inspection, full ROM, other (No stridor JVD or bruits). Absent: tenderness, meningismus, lymphadenopathy Respiratory exam: Present: decreased breath sounds. Absent: respiratory distress, wheezes, rales, rhonchi, stridor Cardiovascular Exam: Present: regular rate, normal rhythm, normal heart sounds. Absent: systolic murmur, diastolic murmur, rubs, gallop, clicks GI/Abdominal exam: Present: soft, normal bowel sounds. Absent: distended, tenderness, guarding, rebound, rigid Extremities exam: Present: full ROM, normal capillary refill, pedal edema. Absent: tenderness, joint swelling, calf tenderness Back exam: Present: normal inspection Neurological exam: Present: alert, oriented X3, CN II-XII intact Psychiatric exam: Present: normal affect, normal mood Skin exam: Present: warm, dry, intact, normal color. Absent: rash Course Vital Signs 11/29/23 11/29/23 11/29/23 17:45 17:59 19:50 Temperature 97.5 F L Pulse Rate 81 75 Respiratory 18 18 19 Rate Blood Pressure 171/79 154/99 O2 Sat by Pulse 97 97 Oximetry Medical Decision Making - Medical Decision Making The patient was transferred from [facility] with diagnosis of CHF he had shortness of breath. She will be admitted to this facility I did discuss case with Shellie Vance covering for Dr. Rodriguez. I did review the disc that was sent x-rays consistent with heart failure. Interpreted by me. Was pt. sent in by a medical professional or institution (, PA, PAYROLL PROFESSIONAL, urgent care, hospital, or fpc...) When possible be specific @ -Dr. Del Cid Did you speak to anyone other than the patient for history (EMS, parent, family, police, friend...)? What history was obtained from this source @ -No Did you review nursing and triage notes (agree or disagree)? Why? @ -I reviewed and agree with nursing and triage notes Were old charts reviewed (outside hosp., previous admission, EMS record, old EKG, old radiological studies, urgent care reports/EKG's, fpc records)? Report findings @ -No old charts were reviewed Differential Diagnosis (chest pain, altered mental status, abdominal pain women, abdominal pain men, vaginal bleeding, weakness, fever, dyspnea, syncope, headache, dizziness, GI bleed, back pain, seizure, CVA, palpatations, mental health, musculoskeletal)? @ -Acute dyspnea EKG interpreted by me (3pts min.). @ -As above EKG interpreted by me sinus rhythm with sinus arrhythmia rate 75 parable 156 QRS duration 92 QT/QTc 409/439 low voltage nonspecific anterior configuration this is compared with 1 sent from the other facility showing similar configuration. X-rays interpreted by me (1pt min.). @ -X-ray disc sent from the sending facility consistent with CHF increased pulmonary vascular markings interpreted by me CT interpreted by me (1pt min.). @ -None done U/S interpreted by me (1pt. min.). @ -None done What testing was considered but not performed or refused? (CT, X-rays, U/S, labs)? Why? @ -None What meds were considered but not given or refused? Why? @ -None Did you discuss the management of the patient with other professionals (professionals i.e. DrSonido, PA, PAYROLL PROFESSIONAL, lab, RT, psych nurse, social media strategist, distribution a class lineman, teacher, sustainability officer, case resource manager)? Give summary @ -Roshan Jacobo covering for Dr. Rodriguez Was smoking cessation discussed for >3mins.? @ -No Was critical care preformed (if so, how long)? @ -No Were there social determinants of health that impacted care today? How? (Homelessness, low income, unemployed, alcoholism, drug addiction, transportation, low edu. Level, literacy, decrease access to med. care, longterm, rehab)? @ -No Was there de-escalation of care discussed even if they declined (Discuss DNR or withdrawal of care, Hospice)? DNR status @ -No What co-morbidities impacted this encounter? (DM, HTN, Smoking, COPD, CAD, Cancer, CVA, ARF, Chemo, Hep., AIDS, mental health diagnosis, sleep apnea, morbid obesity)? @ -Heart failure diabetes hypertension renal insufficiency morbid obesity Was patient admitted / discharged? Hospital course, mention meds given and route, prescriptions, significant lab abnormalities, going to OR and other pertinent info. @ -Hospital course was admitted to this facility for inpatient treatment of CHF. Cardiology consultation will be performed. Undiagnosed new problem with uncertain prognosis? @ -No Drug Therapy requiring intensive monitoring for toxicity (Heparin, Nitro, Insulin, Cardizem)? @ -No Were any procedures done? @ -No Diagnosis/symptom? @ -Acute CHF, dyspnea Acute, or Chronic, or Acute on Chronic? @ -Acute Uncomplicated (without systemic symptoms) or Complicated (systemic symptoms)? @ -Complicated Side effects of treatment? @ -No Exacerbation, Progression, or Severe Exacerbation? @ -Exacerbation Poses a threat to life or bodily function? How? (Chest pain, [place], [place], pneumonia, PE, COPD, DKA, ARF, appy, cholecystitis, CVA, Diverticulitis, Homicidal, Suicidal, threat to staff... and all critical care pts) @ -Potential - Lab Data Lab Results 11/29/23 Range/Units 18:06 Troponin I <0.012 (0.000-0.034) ng/mL Disposition Clinical Impression: Congestive heart failure, Acute dyspnea Disposition: ADMITTED IP TO THIS [facility] Condition: Fair Referrals: None,Stated [Primary Care Provider] - 1-2 days Time of Disposition: 20:17 Decision Date: 11/29/23 Decision Time: 20:17
--- NOTE | 2023-11-29 20:22 | ED ---
Medical Decision Making - Medical Decision Making The patient later confided that she was feeling depressed though no plan on hurting herself though she has had some ideation apparently. Patient will be seen by psychiatry inpatient. - Lab Data Lab Results 11/29/23 Range/Units 18:06 Troponin I <0.012 (0.000-0.034) ng/mL Disposition Clinical Impression: Congestive heart failure, Acute dyspnea, Depression Disposition: ADMITTED IP TO THIS [facility] Condition: Fair Referrals: None,Stated [Primary Care Provider] - 1-2 days
[2023-11-29] MEDS: FUROSEMIDE 10 MG/ML 4 ML VIAL IV SCH (21:27)
[2023-11-29] MEDS: PRAVASTATIN SODIUM 20 MG TAB PO SCH (21:27)
[2023-11-29] MEDS: DOCUSATE 100 MG CAP PO SCH (21:27)
[2023-11-29] MEDS: carvediloL 6.25 MG TAB PO SCH (21:27)
[2023-11-29] MEDS: busPIRone HCl 5 MG TAB PO SCH (21:27)
[2023-11-29 21:30] LABS: Glucose,Whole Blood 109 mg/dL (70-110)
[2023-11-29 21:38] LABS: Amphetamine Screen,Urine Not Detected (NotDetected); Barbiturate Screen,Urine Not Detected (NotDetected); Benzodiazepines Screen,Urine Not Detected (NotDetected); Cocaine Screen,Urine Not Detected (NotDetected); Methadone Screen, Urine Not Detected (NotDetected); Opiate Screen,Urine Not Detected (NotDetected); Oxycodone Screen, Urine Not Detected (NotDetected); Phencyclidine Screen,Urine Not Detected (NotDetected); Tricyclic Antidepressant,Urine Not Detected (NotDetected); Urn Cannabinoid Scrn Not Detected (NotDetected)
[2023-11-30 06:21] LABS: Glucose,Whole Blood 86 mg/dL (70-110)
[2023-11-30] MEDS: LEVOTHYROXINE 88 MCG TAB PO SCH (06:22)
[2023-11-30] MEDS: INSULIN DETEMIR (LEVEMIR) 100 UNIT/ML SYR SQ SCH (06:22)
[2023-11-30] MEDS: SODIUM BICARBONATE TAB 650 MG TAB PO SCH (09:17)
[2023-11-30] MEDS: FERROUS SULFATE 325 MG TAB PO SCH (09:18)
[2023-11-30] MEDS: amLODIPine 10 MG TAB PO SCH (09:18)
[2023-11-30] MEDS: POTASSIUM CHLORIDE ER 10 MEQ TAB.ER.PRT PO SCH (09:18)
[2023-11-30] MEDS: DULoxetine HCL 60 MG CAPSULE.DR PO SCH (09:18)
[2023-11-30] MEDS: TORSEMIDE 20 MG TAB PO SCH (09:18)
[2023-11-30] MEDS ORDERED: DEXTROSE 50% SYRINGE 50 ML IVP PRN ×2 (09:24)
--- NOTE | 2023-11-30 10:09 | US ---
EXAMINATION TYPE: US kidneys/renal and bladder DATE OF EXAM: 11/30/2023 COMPARISON: None CLINICAL INDICATION: Female, 58 years old with history of KRIS; Dx renal disease this last year; Patie nt denies any signs, symptoms, or relevant history EXAM MEASUREMENTS: Right Kidney: 13.9 x 6.9 x 6.6 cm Left Kidney: 12.2 x 6.5 x 5.7 cm Right Kidney: wnl Left Kidney: wnl Bladder: Not distended Bilateral Jets seen: not able to assess Normal Post Void Residual: NA IMPRESSION: No hydronephrosis. Nondistention of the bladder limits its evaluation.
[2023-11-30 11:38] LABS: Glucose,Whole Blood 142 mg/dL (70-110)
--- NOTE | 2023-11-30 11:43 | P.NPCON ---
History of Present Illness - Reason for Consult acute renal failure - History of Present Illness Patient is a 58-year-old female with history of type 2 diabetes, hypertension, chronic kidney disease and Stage IV with baseline creatinine around 2 mg/dL as of 12/31/2021. Patient presented to [facility] with complaints of shortness of breath and increased lower extremity swelling. Patient admits to eating a lot of pickles recently. No complaints of chest pains fever chills nausea vomiting or abdominal pain. Serum creatinine was 2.9 at [facility]. Patient is currently being diuresed. Overall patient states she is feeling better. External catheter in place. Review of Systems As per HPI Past Medical History Past Medical History: Heart Failure, Diabetes Mellitus, GERD/Reflux, Hypertension, Osteoarthritis (OA), Renal Disease Additional Past Medical History / Comment(s): morbid obesity,HF, Neuropathy bilateral legs Type 2 diabetes mellitus,Chronic venous stasis with dermatosis and pedal edema chronic, enterobacteria and enterococal wound infection 2018 History of Any Multi-Drug Resistant Organisms: Other MDRO Past Surgical History: Adenoidectomy, Section, Cholecystectomy, Hernia Repair, Hysterectomy, Orthopedic Surgery, Tonsillectomy Additional Past Surgical History / Comment(s): carple tunnel sx right hand, Partial small bowel resection with ventral hernia incarceration Past Anesthesia/Blood Transfusion Reactions: No Reported Reaction Smoking Status: Former smoker - Past Family History Mother Family Medical History: Asthma, Myocardial Infarction ([place]) Father Family Medical History: Asthma, Cancer Sister(s) Family Medical History: Asthma, Deep Vein Thrombosis (DVT) Medications and Allergies Home Medications Medication Instructions Recorded Confirmed Type Pravastatin Sodium [Pravachol] 20 mg PO HS 01/29/18 11/29/23 History Insulin Degludec [Tresiba 40 units SQ DAILY 12/26/21 11/29/23 History Flextouch U-200 Pen] Semaglutide [Ozempic] 1 mg SQ MO 12/26/21 11/29/23 History Ferrous Sulfate [Feosol] 325 mg PO DAILY #30 tab 12/31/21 11/29/23 Rx Torsemide [Demadex] 20 mg PO DAILY #30 tablet 12/31/21 11/29/23 Rx DULoxetine HCL [Cymbalta] 60 mg PO DAILY 11/29/23 11/29/23 History Docusate [Colace] 100 mg PO BID 11/29/23 11/29/23 History Ergocalciferol (Vitamin D2) 1,250 mcg PO MO 11/29/23 11/29/23 History [Drisdol (50,000 Iu)] Levothyroxine Sodium [Synthroid] 88 mcg PO DAILY 11/29/23 11/29/23 History Potassium Chloride 10 meq PO DAILY 11/29/23 11/29/23 History Sodium Bicarbonate 325 mg PO DAILY 11/29/23 11/29/23 History amLODIPine [Norvasc] 10 mg PO DAILY 11/29/23 11/29/23 History busPIRone HCl [Buspar] 5 mg PO BID 11/29/23 11/29/23 History calcitrioL 0.25 mcg PO DAILY 11/29/23 11/29/23 History carvediloL [Coreg] 6.25 mg PO BID 11/29/23 11/29/23 History Allergies Allergy/AdvReac Type Severity Reaction Status Date / Time cephalexin monohydrate AdvReac Nausea & Verified 11/29/23 19:03 [From Keflex] Vomiting Physical Exam Vitals: Vital Signs Temp Pulse Pulse Pulse Resp BP BP 11/30/23 08:00 97.8 F 75 18 155/70 11/30/23 04:00 98.1 F 69 18 169/68 11/30/23 01:35 66 18 11/30/23 00:00 97 F L 66 18 162/66 11/29/23 21:33 97.8 F 76 18 168/67 11/29/23 21:04 75 19 157/75 11/29/23 20:23 20 11/29/23 19:50 75 19 154/99 11/29/23 17:59 18 11/29/23 17:45 97.5 F L 81 18 171/79 Pulse Ox 11/30/23 08:00 98 11/30/23 04:00 99 11/30/23 01:35 11/30/23 00:00 97 11/29/23 21:33 96 11/29/23 21:04 97 11/29/23 20:23 11/29/23 19:50 97 11/29/23 17:59 11/29/23 17:45 97 Intake and Output 11/29/23 11/30/23 11/30/23 22:59 06:59 14:59 Intake Total 240 Output Total 500 Balance -500 240 Intake: Oral 240 Output: Urine 500 Other: Voiding Method External Catheter External Catheter External Catheter # Voids 1 # Bowel Movements 1 1 Weight 120.656 kg 117.5 kg Patient is awake, comfortable, no acute distress Examination of the heart S1 and S2 Examination of the lungs bilateral breath sounds are heard, basal crackles are heard Abdomen is soft obese nontender Examination of lower extremities shows edema 3-4+ bilaterally 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 Acute kidney injury cardiorenal, nonoliguric. Serum creatinine 2.9 at [facility]. Labs will be repeated in a.m. Patient is currently being diuresed. Continue current dose of IV Lasix. Ultrasound shows no evidence of obstruction 2. Chronic kidney disease and Stage IV with baseline creatinine around 2 mg/dL as of December 2021. Etiology is nephrosclerosis 3. CHF acute on top of chronic, diastolic, ejection fraction of 55 to 60% on echocardiogram in 2019 4. CKD mineral bone disorder maintained on calcitriol 5. Hypertension with CKD stage IV Plan: Continue IV Lasix Hold Demadex Repeat labs in a.m. May continue with sodium bicarb for now. Follow-up on labs in a.m. Thank you for the consultation. We will continue to follow the patient with you during her hospitalization.
[2023-11-30] MEDS: INSULIN ASPART (NovoLOG) 100 UNIT/ML VIAL SQ SCH (11:44)
--- NOTE | 2023-11-30 12:06 | P.CRDCN ---
History of Present Illness Consult date: 11/30/23 Chief complaint: Shortness of breath and bilateral lower extremities edema History of present illness: The patient is a pleasant 58-year-old female patient with a past medical history significant for overweight as well as poor functional capacity and also diabetes and hypertension and dyslipidemia and chronic kidney disease. 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 She presented to the hospital complaining of progressive exertional dyspnea for the last 2 weeks associated with progressive bilateral lower extremities edema and about 25 pounds weight gain. She never been diagnosed with congestive heart failure. She has not been watching her diet and she has been using high salt diet and eating pickles at least 3 times a week. Beside the shortness of breath and lower extremities edema she reports no pain in the chest and no dizziness or lightheadedness and no feeling of heart racing or fluttering and no presyncope or syncope. She underwent further workup including an EKG and that showed sinus mechanism with nonspecific changes anteriorly. Beside that she underwent NT proBNP and that came in to be at 501. The chest x-ray showed pulmonary vascular congestions. Her creatinine came to be significantly elevated and nephrology has been consulted to see the patient. It was noted that her pressure has been elevated through her hospital stay and the pressure seems to be consistent with stage II hypertension and currently she is on carvedilol as well as amlodipine. Examination revealed regular rhythm with a systolic murmur at the right upper sternal border and apical area with diminished breathing sounds bilaterally and severe bilateral lower extremities pitting edema and chronic skin changes. Assessment Heart failure exacerbation with evidence of right and left failure of unknown etiology Heart murmur on examination Noncompliance with diet/low-sodium diet Acute on chronic renal failure Multiple comorbid conditions including diabetes and hypertension and dyslipidemia and obesity Plan Continue the current dose of Lasix IV Continue monitoring the kidney function and electrolytes Rule out acute coronary event. Obtain serial cardiac enzymes Obtain an echocardiogram with Doppler as well Add hydralazine to the current medical regimen for better blood pressure control Follow-up with the patient Past Medical History Past Medical History: Heart Failure, Diabetes Mellitus, GERD/Reflux, Hypertension, Osteoarthritis (OA), Renal Disease Additional Past Medical History / Comment(s): morbid obesity,HF, Neuropathy bilateral legs Type 2 diabetes mellitus,Chronic venous stasis with dermatosis and pedal edema chronic, enterobacteria and enterococal wound infection 2018 History of Any Multi-Drug Resistant Organisms: Other MDRO Past Surgical History: Adenoidectomy, Section, Cholecystectomy, Hernia Repair, Hysterectomy, Orthopedic Surgery, Tonsillectomy Additional Past Surgical History / Comment(s): carple tunnel sx right hand, Partial small bowel resection with ventral hernia incarceration Past Anesthesia/Blood Transfusion Reactions: No Reported Reaction Smoking Status: Former smoker - Past Family History Mother Family Medical History: Asthma, Myocardial Infarction ([place]) Father Family Medical History: Asthma, Cancer Sister(s) Family Medical History: Asthma, Deep Vein Thrombosis (DVT) Medications and Allergies Home Medications Medication Instructions Recorded Confirmed Type Pravastatin Sodium [Pravachol] 20 mg PO HS 01/29/18 11/29/23 History Insulin Degludec [Tresiba 40 units SQ DAILY 12/26/21 11/29/23 History Flextouch U-200 Pen] Semaglutide [Ozempic] 1 mg SQ MO 12/26/21 11/29/23 History Ferrous Sulfate [Feosol] 325 mg PO DAILY #30 tab 12/31/21 11/29/23 Rx Torsemide [Demadex] 20 mg PO DAILY #30 tablet 12/31/21 11/29/23 Rx DULoxetine HCL [Cymbalta] 60 mg PO DAILY 11/29/23 11/29/23 History Docusate [Colace] 100 mg PO BID 11/29/23 11/29/23 History Ergocalciferol (Vitamin D2) 1,250 mcg PO MO 11/29/23 11/29/23 History [Drisdol (50,000 Iu)] Levothyroxine Sodium [Synthroid] 88 mcg PO DAILY 11/29/23 11/29/23 History Potassium Chloride 10 meq PO DAILY 11/29/23 11/29/23 History Sodium Bicarbonate 325 mg PO DAILY 11/29/23 11/29/23 History amLODIPine [Norvasc] 10 mg PO DAILY 11/29/23 11/29/23 History busPIRone HCl [Buspar] 5 mg PO BID 11/29/23 11/29/23 History calcitrioL 0.25 mcg PO DAILY 11/29/23 11/29/23 History carvediloL [Coreg] 6.25 mg PO BID 11/29/23 11/29/23 History Allergies Allergy/AdvReac Type Severity Reaction Status Date / Time cephalexin monohydrate AdvReac Nausea & Verified 11/29/23 19:03 [From Keflex] Vomiting Physical Exam Vitals: Vital Signs Temp Pulse Pulse Pulse Resp BP BP 11/30/23 08:00 97.8 F 75 18 155/70 11/30/23 04:00 98.1 F 69 18 169/68 11/30/23 01:35 66 18 11/30/23 00:00 97 F L 66 18 162/66 11/29/23 21:33 97.8 F 76 18 168/67 11/29/23 21:04 75 19 157/75 11/29/23 20:23 20 11/29/23 19:50 75 19 154/99 11/29/23 17:59 18 11/29/23 17:45 97.5 F L 81 18 171/79 Pulse Ox 11/30/23 08:00 98 11/30/23 04:00 99 11/30/23 01:35 11/30/23 00:00 97 11/29/23 21:33 96 11/29/23 21:04 97 11/29/23 20:23 11/29/23 19:50 97 11/29/23 17:59 11/29/23 17:45 97 Intake and Output 11/29/23 11/30/23 11/30/23 22:59 06:59 14:59 Intake Total 240 Output Total 500 Balance -500 240 Intake: Oral 240 Output: Urine 500 Other: Voiding Method External Catheter External Catheter External Catheter # Voids 1 # Bowel Movements 1 1 Weight 120.656 kg 117.5 kg Results Cardiac Enzymes 11/29/23 11/29/23 11/30/23 Range/Units 18:06 20:40 01:02 Troponin I <0.012 <0.012 <0.012 (0.000-0.034) ng/mL Current Medications Generic Name Dose Route Start Last Admin Trade Name Freq PRN Reason Stop Dose Admin Amlodipine Besylate 10 mg 11/30/23 09:00 11/30/23 09:18 Amlodipine 10 Mg Tab PO 10 mg DAILY KASANDRA Administration Buspirone HCl 5 mg 11/29/23 21:00 11/30/23 09:18 Buspirone Hcl 5 Mg Tab PO 5 mg BID KASANDRA Administration Calcitriol 0.25 mcg 11/30/23 09:00 04/21/24 09:18 Calcitriol 0.25 Mcg Cap PO 0.25 mcg DAILY KASANDRA Administration Carvedilol 6.25 mg 11/29/23 21:00 11/30/23 09:18 Carvedilol 6.25 Mg Tab PO 6.25 mg BID KASANDRA Administration Dextrose/Water 25 ml 11/30/23 09:24 Dextrose 50% Syringe 50 Ml IVP PER PROTOCOL PRN Hypoglycemia Protocol Dextrose/Water 50 ml 11/30/23 09:24 Dextrose 50% Syringe 50 Ml IVP PER PROTOCOL PRN Hypoglycemia Protocol Docusate Sodium 100 mg 11/29/23 21:00 11/30/23 09:18 Docusate 100 Mg Cap PO 100 mg BID KASANDRA Administration Duloxetine HCl 60 mg 11/30/23 09:00 11/30/23 09:18 Duloxetine Hcl 60 Mg Capsule.Dr PO 60 mg DAILY KASANDRA Administration Ergocalciferol 1,250 mcg 12/01/23 09:00 Ergocalciferol 1,250 Mcg (50,000 Iu) Capsule PO MO [facility] Ferrous Sulfate 325 mg 11/30/23 09:00 11/30/23 09:18 Ferrous Sulfate 325 Mg Tab PO 325 mg DAILY KASANDRA Administration Furosemide 40 mg 11/29/23 21:00 11/30/23 06:22 Furosemide 10 Mg/Ml 4 Ml Vial IV 40 mg Q8H KASANDRA Administration Insulin Aspart 0 unit 11/30/23 12:30 11/30/23 11:44 Insulin Aspart (Novolog) 100 Unit/Ml Vial SQ Not Given ACHS [facility] Protocol Insulin Detemir 40 unit 11/30/23 07:00 11/30/23 06:22 Insulin Detemir (Levemir) 100 Unit/Ml Syr SQ 40 unit DAILY@0700 KASANDRA Administration Levothyroxine Sodium 88 mcg 11/30/23 06:30 11/30/23 06:22 Levothyroxine 88 Mcg Tab PO 88 mcg 0630 KASANDRA Administration Potassium Chloride 10 meq 11/30/23 09:00 11/30/23 09:18 Potassium Chloride Er 10 Meq Tab.Er.Prt PO 10 meq DAILY KASANDRA Administration Pravastatin Sodium 20 mg 11/29/23 21:00 11/29/23 21:27 Pravastatin Sodium 20 Mg Tab PO 20 mg HS KASANDRA Administration Sodium Bicarbonate 325 mg 11/30/23 09:00 11/30/23 09:17 Sodium Bicarbonate Tab 650 Mg Tab PO 325 mg DAILY KASANDRA Administration Intake and Output 11/29/23 11/30/23 11/30/23 22:59 06:59 14:59 Intake Total 240 Output Total 500 Balance -500 240 Intake: Oral 240 Output: Urine 500 Other: Voiding Method External Catheter External Catheter External Catheter # Voids 1 # Bowel Movements 1 1 Weight 120.656 kg 117.5 kg
[2023-11-30] MEDS: hydrALAZINE HCL 25 MG TAB PO SCH (12:25)
--- NOTE | 2023-11-30 12:34 | P.HPIM ---
History of Present Illness H&P Date: 11/30/23 History of present illness; patient is a 58-year-old lady with past medical history significant for chronic kidney disease, hypertension, diabetes mellitus presented to the ER as a transfer from [facility] for worsening shortness of breath and lower extremity swelling. Patient stated that she has been noticing for the last couple of weeks she has been having worsening shortness of breath present on rest as well as exertion. Denied any chest pain. There is complaint of swelling of lower extremities. Denied any fever or chills. Denies any nausea, vomiting or abdominal pain. There is no complaint of lightheaded or dizziness. Because of these worsening symptoms, she initially presented to [facility] and later transferred to [facility] Patient admitted to internal medicine service REVIEW OF SYSTEMS: CONSTITUTIONAL: No fever, no malaise, no fatigue. HEENT: No recent visual problems or hearing problems. Denied any sore throat. CARDIOVASCULAR: As mentioned above PULMONARY: As mentioned above GASTROINTESTINAL: No diarrhea, no nausea, no vomiting, no abdominal pain. NEUROLOGICAL: No headaches, no weakness, no numbness. HEMATOLOGICAL: Denies any bleeding or petechiae. GENITOURINARY: Denies any burning micturition, frequency, or urgency. MUSCULOSKELETAL/RHEUMATOLOGICAL: Denies any joint pain, swelling, or any muscle pain. ENDOCRINE: Denies any polyuria or polydipsia. The rest of the 14-point review of systems is negative. PHYSICAL EXAMINATION: GENERAL: The patient is alert and oriented x3, not in any acute distress. Well developed, well nourished. HEENT: Pupils are round and equally reacting to light. EOMI. No scleral icterus. No conjunctival pallor. Normocephalic, atraumatic. No pharyngeal erythema. No thyromegaly. CARDIOVASCULAR: S1 and S2 present. No murmurs, rubs, or gallops. PULMONARY: Chest is clear to auscultation, no wheezing or crackles. ABDOMEN: Soft, nontender, nondistended, normoactive bowel sounds. No palpable organomegaly. MUSCULOSKELETAL: No joint swelling or deformity. EXTREMITIES: 2+ pitting edema of lower extremities bilaterally NEUROLOGICAL: Gross neurological examination did not reveal any focal deficits. SKIN: No rashes. Assessment and plan Acute CHF Acute on chronic kidney disease Hypertension Hyperlipidemia Diabetes mellitus Hypothyroidism Depression Monitor vital signs Monitor CBC Monitor CMP Continue telemetry monitoring Check I's and O's, daily weights Continue IV Lasix 40 mg Q8 Continue Norvasc, Coreg Monitor blood sugar levels, continue sliding scale insulin Ordered 2D echo Ordered ultrasound of kidneys Consult cardiology consult nephrology Consult psychiatry for depression Labs and medication were reviewed.. Continue same treatment. Continue with symptomatic treatment. Resume home medication. Monitor labs and vitals. DVT and GI prophylaxis. Further recommendations as per clinical course of the patient Dictation was produced using [employer] dictation software. please excuse any grammatical, word or spelling errors. Past Medical History Past Medical History: Heart Failure, Diabetes Mellitus, GERD/Reflux, Hypertension, Osteoarthritis (OA), Renal Disease Additional Past Medical History / Comment(s): morbid obesity,HF, Neuropathy bilateral legs Type 2 diabetes mellitus,Chronic venous stasis with dermatosis and pedal edema chronic, enterobacteria and enterococal wound infection 2018 History of Any Multi-Drug Resistant Organisms: Other MDRO Past Surgical History: Adenoidectomy, Section, Cholecystectomy, Hernia Repair, Hysterectomy, Orthopedic Surgery, Tonsillectomy Additional Past Surgical History / Comment(s): carple tunnel sx right hand, Partial small bowel resection with ventral hernia incarceration Past Anesthesia/Blood Transfusion Reactions: No Reported Reaction Smoking Status: Former smoker - Past Family History Mother Family Medical History: Asthma, Myocardial Infarction ([place]) Father Family Medical History: Asthma, Cancer Sister(s) Family Medical History: Asthma, Deep Vein Thrombosis (DVT) Medications and Allergies Home Medications Medication Instructions Recorded Confirmed Type Pravastatin Sodium [Pravachol] 20 mg PO HS 01/29/18 11/29/23 History Insulin Degludec [Tresiba 40 units SQ DAILY 12/26/21 11/29/23 History Flextouch U-200 Pen] Semaglutide [Ozempic] 1 mg SQ MO 12/26/21 11/29/23 History Ferrous Sulfate [Feosol] 325 mg PO DAILY #30 tab 12/31/21 11/29/23 Rx Torsemide [Demadex] 20 mg PO DAILY #30 tablet 12/31/21 11/29/23 Rx DULoxetine HCL [Cymbalta] 60 mg PO DAILY 11/29/23 11/29/23 History Docusate [Colace] 100 mg PO BID 11/29/23 11/29/23 History Ergocalciferol (Vitamin D2) 1,250 mcg PO MO 11/29/23 11/29/23 History [Drisdol (50,000 Iu)] Levothyroxine Sodium [Synthroid] 88 mcg PO DAILY 11/29/23 11/29/23 History Potassium Chloride 10 meq PO DAILY 11/29/23 11/29/23 History Sodium Bicarbonate 325 mg PO DAILY 11/29/23 11/29/23 History amLODIPine [Norvasc] 10 mg PO DAILY 11/29/23 11/29/23 History busPIRone HCl [Buspar] 5 mg PO BID 11/29/23 11/29/23 History calcitrioL 0.25 mcg PO DAILY 11/29/23 11/29/23 History carvediloL [Coreg] 6.25 mg PO BID 11/29/23 11/29/23 History Allergies Allergy/AdvReac Type Severity Reaction Status Date / Time cephalexin monohydrate AdvReac Nausea & Verified 11/29/23 19:03 [From Keflex] Vomiting Physical Exam Vitals: Vital Signs Temp Pulse Pulse Pulse Resp BP BP 11/30/23 08:00 97.8 F 75 18 155/70 11/30/23 04:00 98.1 F 69 18 169/68 11/30/23 01:35 66 18 11/30/23 00:00 97 F L 66 18 162/66 11/29/23 21:33 97.8 F 76 18 168/67 11/29/23 21:04 75 19 157/75 11/29/23 20:23 20 11/29/23 19:50 75 19 154/99 11/29/23 17:59 18 11/29/23 17:45 97.5 F L 81 18 171/79 Pulse Ox 11/30/23 08:00 98 11/30/23 04:00 99 11/30/23 01:35 11/30/23 00:00 97 11/29/23 21:33 96 11/29/23 21:04 97 11/29/23 20:23 11/29/23 19:50 97 11/29/23 17:59 11/29/23 17:45 97 Intake and Output 11/29/23 11/30/23 11/30/23 22:59 06:59 14:59 Output Total 500 Balance -500 Output: Urine 500 Other: Voiding Method External Catheter External Catheter # Voids 1 # Bowel Movements 1 Weight 120.656 kg 117.5 kg Thrombosis Risk Factor Assmnt - Choose All That Apply Each Risk Factor Represents 3 Points: Age 75 years or older Thrombosis Risk Factor Assessment Total Risk Factor Score: 3 Thrombosis Risk Factor Assessment Level: Moderate Risk
[2023-11-30 13:30] LABS: ALT 14 U/L (4-34); AST 21 U/L (14-36); African American GFR (CKD) 23 (>60 ml/min/1.73 sqM); Albumin 2.3 g/dL (3.5-5.0); Alkaline Phosphatase 164 U/L (38-126); Anion Gap 4 mmol/L; Blood Urea Nitrogen 51 mg/dL (7-17); Calcium 8.5 mg/dL (8.4-10.2); Carbon Dioxide 21 mmol/L (22-30); Chloride 115 mmol/L (98-107); Glucose 130 mg/dL (74-99); Non-African American GFR(CKD) 20 (>60 ml/min/1.73 sqM); Potassium 3.9 mmol/L (3.5-5.1); Sodium 140 mmol/L (137-145); Total Bilirubin 0.7 mg/dL (0.2-1.3); Total Protein 5.9 g/dL (6.3-8.2)
[2023-11-30 13:36] LABS: Anisocytosis Slight; Basophils % (A) 0 %; Eosinophils # (A) 0.2 k/uL (0-0.7); Eosinophils % (A) 3 %; HCT 26.3 % (34.0-46.0); HGB 8.4 gm/dL (11.4-16.0); Hypochromasia Moderate; Lymphocytes # (A) 1.4 k/uL (1.0-4.8); Lymphocytes % (A) 17 %; MCH 27.3 pg (25.0-35.0); MCHC 31.8 g/dL (31.0-37.0); MCV 86.1 fL (80.0-100.0); Mean Platelet Volume 8.6; Monocytes # (A) 0.4 k/uL (0-1.0); Monocytes % (A) 5 %; Neutrophils # (A) 6.1 k/uL (1.3-7.7); Neutrophils % (A) 73 %; Platelet Count 141 k/uL (150-450); RBC 3.06 m/uL (3.80-5.40); WBC 8.4 k/uL (3.8-10.6)
[2023-11-30] MEDS: NYSTATIN 100,000 UNIT/GM POWD 15 GM TOPICAL SCH (14:04)
--- NOTE | 2023-11-30 15:24 | P.CN ---
Psychiatric Consult - . Consult date: 11/30/23 Consult:: 11/30/23 15:19 The patient was interviewed for half-hour chart review and medications reviewed Diagnosis chronic depression dysthymic disorder The patient is discouraged but not acutely suicidal nondangerous self or others but I do believe it would be beneficial to change her medications. The patient acknowledges and it is clearly evident that her sense of worth motivation and enjoyment and drive have been and are very low. This is evidence of note dopamine. Cymbalta only works on norepinephrine and serotonin. The recent addition of BuSpar prior to admission to make the serotonin work better is probably not going to have any effect BuSpar does not work and most people tell you get up to 30 twice a day. The problem is as a Cymbalta could be increased but that would prohibit giving her something that would help the dopam ine I think that well we need to do is discontinue the Cymbalta and the BuSpar and replace them with Zoloft 100 that would be roughly equivalent to the 60 of Cymbalta and take care of serotonin she then needs to have help on norepinephrine and especially on the dopamine through Wellbutrin we could start with 150 for 2 days and if tolerated try going to 300. I do not see any evidence of a seizure disorder of course it would be contraindicated we can use mirtazapine because that would make her eat more I think Wellbutrin would be the most likely thing to get her life going she has to have energy to fight back against her disabilities work with physical therapy set limits on her family etc. and the dopamine to the Wellbutrin helped could make a huge difference. Interestingly she did seem to have a mild case of tardive dyskinesia I think she must have taken something for nausea in the past. She denies any past use of antipsychotics although the name Marilou sounded vaguely familiar. Mental status exam she was alert cooperative sad affect oriented logical no evidence of any psychosis she denied known the past any manic episodes. Assessment: Thing that is making her danger to herself is feeling like she can't contributed she is a burden we did discuss this she really needs to get into counseling to work that through but it would also help if she had more dopamine function so that she could fight back against her disabilities and have more ways that she could contribute to others. Plan: So she needs to get into supportive counseling and she would benefit from something that works on dopamine the best way do that is to get off the Cymbalta and replace it with Wellbutrin and Zoloft
--- NOTE | 2023-11-30 15:58 | CA ---
Transthoracic Echo Report Name: Cristal Ferrer Age: 58 Gender: F : 1965 Exam Date: 11/30/2023 11:20 Exam Location: [facility] Ht (in): 62 Wt (lb): 266 Ordering Physician: Brayden Mccord MD Attending/Referring Phys: Conference Services Coordinator Prabha Guevara RDCS Procedure CPT: Indications: Heart failure Cardiac Hx: Technical Quality: Technically difficult study Contrast 1: Definity Total Dose (mL): 2 Contrast 2: Total Dose (mL): MEASUREMENTS (Male / Female) Normal Values 2D ECHO LV Diastolic Diameter PLAX 6.0 cm 4.2 - 5.9 / 3.9 - 5.3 cm LV Systolic Diameter PLAX 4.2 cm IVS Diastolic Thickness 1.2 cm 0.6 - 1.0 / 0.6 - 0.9 cm LVPW Diastolic Thickness 1.1 cm 0.6 - 1.0 / 0.6 - 0.9 cm LV Relative Wall Thickness 0.4 RV Internal Dim ED PLAX 3.2 cm LA Systolic Diameter LX 3.8 cm 3.0 - 4.0 / 2.7 - 3.8 cm LA Volume 61.1 cm??? 18 - 58 / 22 - 52 cm??? LA Volume Index 25.7 cm???/m??? 16 - 28 cm???/m??? M-MODE Aortic Root Diameter MM 3.0 cm MV E Point Septal Separation 1.7 cm AV Cusp Separation MM 2.0 cm DOPPLER AV Peak Velocity 218.8 cm/s AV Peak Gradient 19.2 mmHg AV Mean Velocity 148.7 cm/s AV Mean Gradient 10.1 mmHg AV Velocity Time Integral 48.7 cm LVOT Peak Velocity 156.5 cm/s LVOT Peak Gradient 9.8 mmHg TR Peak Velocity 284.5 cm/s TR Peak Gradient 32.4 mmHg Right Ventricular Systolic Press 36.0 mmHg FINDINGS Left Ventricle Left ventricular ejection fraction is estimated at 55-60 %. Mildly increased septal wall thickness. Mildly increased posterior wall thickness. Moderately increased left ventricular diastolic diameter. Right Ventricle Normal right ventricular size. Mild pulmonary hypertension. Right Atrium Normal right atrial size. Left Atrium Mildly increased left atrial volume. Mitral Valve Structurally normal mitral valve. Mild to moderate MR Aortic Valve Poorly visualized aortic valve. No aortic valve stenosis or regurgitation. Tricuspid Valve Structurally normal tricuspid valve. Mild tricuspid regurgitation. Pulmonic Valve Structurally normal pulmonic valve. Mild pulmonic regurgitation. Pericardium Small pericardial effusion. Aorta Normal size aortic root and proximal ascending aorta. CONCLUSIONS Technically difficult study Normal LV systolic function. Mild LVH Poorly visualized aortic valve [id number] MR Small pericardial effusion Previewed by: Dr. Greyson Corado MD (Electronically Signed) Final Date: 30 November 2023 15:57
[2023-11-30 16:44] LABS: Glucose,Whole Blood 163 mg/dL (70-110)
[2023-11-30 20:11] LABS: Glucose,Whole Blood 170 mg/dL (70-110)
[2023-12-01 05:59] LABS: Glucose,Whole Blood 161 mg/dL (70-110)
[2023-12-01] MEDS: ERGOCALCIFEROL 1,250 MCG (50,000 IU) CAPSULE PO SCH (08:51)
--- NOTE | 2023-12-01 10:18 | P.PN ---
Subjective Patient is seen in follow-up for acute kidney injury on chronic kidney disease. Creatinine 2.54 yesterday. Receiving IV Lasix. Nonoliguric. Denies chest pain or shortness of breath. Vital signs are stable. General: No acute distress. HEENT: Head exam is unremarkable. On nasal cannula. LUNGS: No audible rhonchi or wheezes. HEART: Rate and Rhythm are regular. ABDOMEN: Nontender. EXTREMITITES: 1+ edema. Objective - Vital Signs Vital signs: Vital Signs Temp 98.3 F 12/01/23 04:00 Pulse 75 12/01/23 04:00 Resp 18 12/01/23 04:00 BP 141/63 12/01/23 04:00 Pulse Ox 96 12/01/23 04:00 FiO2 Intake & Output 11/30/23 12/01/23 12/01/23 18:59 06:59 18:59 Intake Total 600 118 Output Total 700 750 Balance -100 -750 118 Intake: Oral 600 118 Output: Urine 700 750 Other: Voiding Method External Catheter External Catheter # Bowel Movements 1 1 - Labs CBC & Chem 7: 11/30/23 12:35 11/30/23 12:35 Labs: Abnormal Lab Results - Last 24 Hours (Table) 11/30/23 11/30/23 11/30/23 Range/Units 11:36 12:35 12:35 RBC 3.06 L (3.80-5.40) m/uL Hgb 8.4 L (11.4-16.0) gm/dL Hct 26.3 L (34.0-46.0) % RDW 16.0 H (11.5-15.5) % Plt Count 141 L (150-450) k/uL Chloride 115 H (98-107) mmol/L Carbon Dioxide 21 L (22-30) mmol/L BUN 51 H (7-17) mg/dL Creatinine 2.54 H (0.52-1.04) mg/dL Glucose 130 H (74-99) mg/dL POC Glucose (mg/dL) 142 H (70-110) mg/dL Alkaline Phosphatase 164 H (38-126) U/L Total Protein 5.9 L (6.3-8.2) g/dL Albumin 2.3 L (3.5-5.0) g/dL 04/11/30/23 12/01/23 Range/Units 16:43 20:10 05:58 RBC (3.80-5.40) m/uL Hgb (11.4-16.0) gm/dL Hct (34.0-46.0) % RDW (11.5-15.5) % Plt Count (150-450) k/uL Chloride (98-107) mmol/L Carbon Dioxide (22-30) mmol/L BUN (7-17) mg/dL Creatinine (0.52-1.04) mg/dL Glucose (74-99) mg/dL POC Glucose (mg/dL) 163 H 170 H 161 H (70-110) mg/dL Alkaline Phosphatase (38-126) U/L Total Protein (6.3-8.2) g/dL Albumin (3.5-5.0) g/dL Assessment and Plan Plan: Assessment: 1. Acute kidney injury secondary to ATN secondary to cardiorenal syndrome. Creatinine 2.9 upon admission at [facility] and 2.5 yesterday. No hydronephrosis noted on kidney ultrasound. 2. Chronic kidney disease stage IV secondary to diabetic kidney disease. Creatinine as low as 2.1 in December 2021 and near 3.3 in April 2023. 3. Acute on chronic diastolic CHF and mild to moderate mitral regurgitation. 4. Hypertension with chronic kidney disease. Stable. 5. Volume overload. 6. Diabetes mellitus. 7. Metabolic acidosis secondary to chronic kidney disease maintained on oral bicarb. 8. Anemia of chronic kidney disease. Rule out iron deficiency. Plan: Maintain IV Lasix. Low-salt diet and 1500 cc fluid restriction. Check iron studies. Avoid nephrotoxins. Continue to monitor renal function and urine output.
[2023-12-01 11:06] LABS: Anisocytosis Slight; Basophils % (A) 0 %; Eosinophils # (A) 0.2 k/uL (0-0.7); Eosinophils % (A) 3 %; HCT 28.6 % (34.0-46.0); HGB 8.7 gm/dL (11.4-16.0); Hypochromasia Slight; Lymphocytes % (A) 15 %; MCH 26.4 pg (25.0-35.0); MCHC 30.4 g/dL (31.0-37.0); MCV 86.7 fL (80.0-100.0); Mean Platelet Volume 8.5; Monocytes # (A) 0.4 k/uL (0-1.0); Monocytes % (A) 6 %; Neutrophils % (A) 75 %; Platelet Count 153 k/uL (150-450); RDW 16.1 % (11.5-15.5); WBC 6.8 k/uL (3.8-10.6)
[2023-12-01 11:19] LABS: ALT 13 U/L (4-34); AST 23 U/L (14-36); African American GFR (CKD) 21 (>60 ml/min/1.73 sqM); Albumin 2.5 g/dL (3.5-5.0); Alkaline Phosphatase 163 U/L (38-126); Anion Gap 7 mmol/L; Blood Urea Nitrogen 54 mg/dL (7-17); Calcium 8.5 mg/dL (8.4-10.2); Carbon Dioxide 19 mmol/L (22-30); Chloride 113 mmol/L (98-107); Glucose 213 mg/dL (74-99); Non-African American GFR(CKD) 19 (>60 ml/min/1.73 sqM); Potassium 3.8 mmol/L (3.5-5.1); Sodium 139 mmol/L (137-145); Total Bilirubin 0.8 mg/dL (0.2-1.3); Total Protein 6.2 g/dL (6.3-8.2)
[2023-12-01 11:49] LABS: Glucose,Whole Blood 216 mg/dL (70-110)
[2023-12-01] MEDS: ONDANSETRON 4 MG/2 ML VIAL IVP PRN (13:17)
--- NOTE | 2023-12-01 14:06 | P.PN ---
Subjective Progress Note Date: 12/01/23 Chief complaint: Shortness of breath and bilateral lower extremities edema History of present illness: The patient is a pleasant 58-year-old female patient with a past medical history significant for overweight as well as poor functional capacity and also diabetes and hypertension and dyslipidemia and chronic kidney disease. The patient sees a service mechanic in [facility]. She presented to the hospital complaining of progressive exertional dyspnea for the last 2 weeks associated with progressive bilateral lower extremities edema and about 25 pounds weight gain. She never been diagnosed with congestive heart failure. She has not been watching her diet and she has been using high salt diet and eating pickles at least 3 times a week. Beside the shortness of breath and lower extremities edema she reports no pain in the chest and no dizziness or lightheadedness and no feeling of heart racing or fluttering and no presyncope or syncope. She underwent further workup including an EKG and that showed sinus mechanism with nonspecific changes anteriorly. Beside that she underwent NT proBNP and that came in to be at 501. The chest x-ray showed pulmonary vascular congestions. Her creatinine came to be significantly elevated and nephrology has been consulted to see the patient. It was noted that her pressure has been elevated through her hospital stay and the pressure seems to be consistent with stage II hypertension and currently she is on carvedilol as well as amlodipine. Examination revealed regular rhythm with a systolic murmur at the right upper sternal border and apical area with diminished breathing sounds bilaterally and severe bilateral lower extremities pitting edema and chronic skin changes. 11/30 Patient states her shortness of breath is much better and back to normal. Noted the patient's blood pressure is high 171/72 and patient states that her blood pressure usually runs in the 160s at home. She denies having any chest pain or chest pressure. Repeat blood work reveals sodium 139, potassium 3.8, BUN 54 cre atinine 2.7. Hemoglobin 8.7. Patient has been on Lasix 40 mg IV every 8 hours. Her lower extremity edema is improving. Hydralazine has been added yesterday. Physical Examination Gen: This is a 58-year-old female in no acute distress. HEENT: Head is atraumatic, normocephalic. Pupils equal, round. Sclerae is anicteric. LUNGS: Diminished breath sounds bilaterally no intercostal retractions. HEART: Regular rate and rhythm. Systolic murmur at the right upper sternal border and apical area. ABDOMEN: Soft. Bowel sounds are present. No masses. No tenderness. EXTREMITIES: 1+ bilateral pedal edema, chronic dark skin changes. No calf tenderness. NEUROLOGICAL: Patient is awake, alert and oriented x3. Assessment Heart failure exacerbation with evidence of right and left failure of unknown e tiology Heart murmur on examination Noncompliance with diet/low-sodium diet Acute on chronic renal failure Multiple comorbid conditions including diabetes and hypertension and dyslipidemia and obesity Plan Continue the current dose of Lasix IV for another 24 hours Continue monitoring the kidney function and electrolytes Continue added hydralazine Follow-up with the patient Nurse practitioner note has been reviewed, I agree with documented findings and plan of care. Patient was seen and examined. Objective - Vital Signs Vital signs: Vital Signs Temp 96.9 F L 12/01/23 08:00 Pulse 72 12/01/23 08:00 Resp 17 12/01/23 08:00 BP 171/72 12/01/23 08:00 Pulse Ox 96 12/01/23 08:00 FiO2 Intake & Output 11/30/23 12/01/23 12/01/23 18:59 06:59 18:59 Intake Total 600 118 Output Total 700 750 Balance -100 -750 118 Intake: Oral 600 118 Output: Urine 700 750 Other: Voiding Method External Catheter External Catheter External Catheter # Bowel Movements 1 1 - Labs CBC & Chem 7: 12/01/23 10:01 12/01/23 10:01 Labs: Abnormal Lab Results - Last 24 Hours (Table) 11/30/23 11/30/23 11/30/23 Range/Units 12:35 12:35 16:43 RBC 3.06 L (3.80-5.40) m/uL Hgb 8.4 L (11.4-16.0) gm/dL Hct 26.3 L (34.0-46.0) % MCHC (31.0-37.0) g/dL RDW 16.0 H (11.5-15.5) % Plt Count 141 L (150-450) k/uL Chloride 115 H (98-107) mmol/L Carbon Dioxide 21 L (22-30) mmol/L BUN 51 H (7-17) mg/dL Creatinine 2.54 H (0.52-1.04) mg/dL Glucose 130 H (74-99) mg/dL POC Glucose (mg/dL) 163 H (70-110) mg/dL Alkaline Phosphatase 164 H (38-126) U/L Total Protein 5.9 L (6.3-8.2) g/dL Albumin 2.3 L (3.5-5.0) g/dL 11/30/23 12/01/23 12/01/23 Range/Units 20:10 05:58 10:01 RBC 3.30 L (3.80-5.40) m/uL Hgb 8.7 L (11.4-16.0) gm/dL Hct 28.6 L (34.0-46.0) % MCHC 30.4 L (31.0-37.0) g/dL RDW 16.1 H (11.5-15.5) % Plt Count (150-450) k/uL Chloride (98-107) mmol/L Carbon Dioxide (22-30) mmol/L BUN (7-17) mg/dL Creatinine (0.52-1.04) mg/dL Glucose (74-99) mg/dL POC Glucose (mg/dL) 170 H 161 H (70-110) mg/dL Alkaline Phosphatase (38-126) U/L Total Protein (6.3-8.2) g/dL Albumin (3.5-5.0) g/dL 12/01/23 Range/Units 10:01 RBC (3.80-5.40) m/uL Hgb (11.4-16.0) gm/dL Hct (34.0-46.0) % MCHC (31.0-37.0) g/dL RDW (11.5-15.5) % Plt Count (150-450) k/uL Chloride 113 H (98-107) mmol/L Carbon Dioxide 19 L (22-30) mmol/L BUN 54 H (7-17) mg/dL Creatinine 2.70 H (0.52-1.04) mg/dL Glucose 213 H (74-99) mg/dL POC Glucose (mg/dL) (70-110) mg/dL Alkaline Phosphatase 163 H (38-126) U/L Total Protein 6.2 L (6.3-8.2) g/dL Albumin 2.5 L (3.5-5.0) g/dL
[2023-12-01 16:49] LABS: Glucose,Whole Blood 230 mg/dL (70-110)
[2023-12-01] MEDS: lisinopriL 5 MG TAB PO SCH (18:08)
[2023-12-01] MEDS: DAPAGLIFLOZIN PROPANEDIOL 10 MG TABLET PO SCH (18:08)
[2023-12-01 20:10] LABS: Glucose,Whole Blood 239 mg/dL (70-110)
[2023-12-01] MEDS: ZINC OXIDE PASTE (Z-GUARD) 1 APPLIC TOPICAL PRN (20:38)
[2023-12-01 20:48] LABS: % Iron Saturation 15.81 (12.00-45.00); Iron 37 UG/DL (50-170); Total Iron Binding Capacity 234 UG/DL (228-460)
--- NOTE | 2023-12-01 20:49 | P.PN ---
Subjective Progress Note Date: 12/01/23 History of present illness; patient is a 58-year-old lady with past medical history significant for chronic kidney disease, hypertension, diabetes mellitus presented to the ER as a transfer from [facility] for worsening shortness of breath and lower extremity swelling. Patient stated that she has been noticing for the last couple of weeks she has been having worsening shortness of breath present on rest as well as exertion. Denied any chest pain. There is complaint of swelling of lower extremities. Denied any fever or chills. Denies any nausea, vomiting or abdominal pain. There is no complaint of lightheaded or dizziness. Because of these worsening symptoms, she initially presented to [facility] and later transferred to [facility] Patient admitted to internal medicine service 12/01/2023 Patient is evaluated today sitting up in the chair. Reports improvement in her shortness of breath however remains on nasal cannula. Oxygen saturation is in the high 90s and discussed with nursing to wean the patient off oxygen if possible. Continues with lower extremity edema, pitting although significantly improved. Remains on IV lasix. Echocardiogram comes back with normal LV systolic function, mild to moderate MR. Small pericardial effusion. Renal ultrasound reveals no hydronephrosis. Review of Systems Constitutional: Denied any fatigue denied any fever. Cardio vascular: denied any chest pain, palpitations Gastrointestinal: denied any nausea, vomiting, diarrhea Pulmonary: Denied any shortness of breath cough Neurologic denied any new focal deficits All inpatient medications were reviewed and appropriate changes in these medications as dictated in the interval history and assessment and plan. Physical examination: GENERAL: The patient is alert and oriented x3, not in any acute distress. Well developed, well nourished. HEENT: Pupils are round and equally reacting to light. EOMI. No scleral icterus. No conjunctival pallor. Normocephalic, atraumatic. No pharyngeal erythema. No thyromegaly. CARDIOVASCULAR: S1 and S2 present. No murmurs, rubs, or gallops. PULMONARY: Chest is clear to auscultation, no wheezing or crackles. ABDOMEN: Soft, nontender, nondistended, normoactive bowel sounds. No palpable organomegaly. MUSCULOSKELETAL: No joint swelling or deformity. EXTREMITIES: 2+ pitting edema of lower extremities bilaterally NEUROLOGICAL: Gross neurological examination did not reveal any focal deficits. SKIN: No rashes. Assessment and plan Acute CHF, diastolic dysfunction. Small pericardial effusion Acute on chronic kidney disease Cardiorenal syndrome Hypertension Hyperlipidemia Diabetes mellitus type 2 Hypothyroidism Depression GI prophylaxis DVT prophylaxis Continue telemetry monitoring Check I's and O's, daily weights Continue IV Lasix 40 mg Q8 for another 24 hours. Continue Norvasc, Coreg Monitor blood sugar levels, continue sliding scale insulin and levemir. cardiology, nephrology and psychiatry following. Psychiatry did recommend to discontinue the cymbalta in place of wellbutrin and zoloft for the depression and get set up with counseling/[facility] on discharge. Iron studies ordered Repeat BMP in the AM The impression and plan of care has been dictated by Betty Duran, Nurse Practitioner as directed. Dr. Tammi MD I have performed a history and physical examination and medical decision making of this patient, discussed the same with the dictator, and agree with the dictators assessment and plan as written, documented as a scribe. Based on total visit time, I have performed more than 50% of this visit. Objective - Vital Signs Vital signs: Vital Signs Temp 96.9 F L 12/01/23 08:00 Pulse 72 12/01/23 08:00 Resp 17 12/01/23 08:00 BP 171/72 12/01/23 08:00 Pulse Ox 96 12/01/23 08:00 FiO2 Intake & Output 11/30/23 12/01/23 12/01/23 18:59 06:59 18:59 Intake Total 600 118 Output Total 700 750 Balance -100 -750 118 Intake: Oral 600 118 Output: Urine 700 750 Other: Voiding Method External Catheter External Catheter External Catheter # Bowel Movements 1 1 - Labs CBC & Chem 7: 12/01/23 10:01 12/01/23 10:01 Labs: Abnormal Lab Results - Last 24 Hours (Table) 11/30/23 11/30/23 11/30/23 Range/Units 12:35 12:35 16:43 RBC 3.06 L (3.80-5.40) m/uL Hgb 8.4 L (11.4-16.0) gm/dL Hct 26.3 L (34.0-46.0) % MCHC (31.0-37.0) g/dL RDW 16.0 H (11.5-15.5) % Plt Count 141 L (150-450) k/uL Chloride 115 H (98-107) mmol/L Carbon Dioxide 21 L (22-30) mmol/L BUN 51 H (7-17) mg/dL Creatinine 2.54 H (0.52-1.04) mg/dL Glucose 130 H (74-99) mg/dL POC Glucose (mg/dL) 163 H (70-110) mg/dL Alkaline Phosphatase 164 H (38-126) U/L Total Protein 5.9 L (6.3-8.2) g/dL Albumin 2.3 L (3.5-5.0) g/dL 11/30/23 12/01/23 12/01/23 Range/Units 20:10 05:58 10:01 RBC 3.30 L (3.80-5.40) m/uL Hgb 8.7 L (11.4-16.0) gm/dL Hct 28.6 L (34.0-46.0) % MCHC 30.4 L (31.0-37.0) g/dL RDW 16.1 H (11.5-15.5) % Plt Count (150-450) k/uL Chloride (98-107) mmol/L Carbon Dioxide (22-30) mmol/L BUN (7-17) mg/dL Creatinine (0.52-1.04) mg/dL Glucose (74-99) mg/dL POC Glucose (mg/dL) 170 H 161 H (70-110) mg/dL Alkaline Phosphatase (38-126) U/L Total Protein (6.3-8.2) g/dL Albumin (3.5-5.0) g/dL 12/01/23 12/01/23 Range/Units 10:01 11:46 RBC (3.80-5.40) m/uL Hgb (11.4-16.0) gm/dL Hct (34.0-46.0) % MCHC (31.0-37.0) g/dL RDW (11.5-15.5) % Plt Count (150-450) k/uL Chloride 113 H (98-107) mmol/L Carbon Dioxide 19 L (22-30) mmol/L BUN 54 H (7-17) mg/dL Creatinine 2.70 H (0.52-1.04) mg/dL Glucose 213 H (74-99) mg/dL POC Glucose (mg/dL) 216 H (70-110) mg/dL Alkaline Phosphatase 163 H (38-126) U/L Total Protein 6.2 L (6.3-8.2) g/dL Albumin 2.5 L (3.5-5.0) g/dL Assessment and Plan Time with Patient: Less than 30
[2023-12-02 06:03] LABS: Glucose,Whole Blood 166 mg/dL (70-110)
[2023-12-02 10:33] LABS: African American GFR (CKD) 19 (>60 ml/min/1.73 sqM); Anion Gap 6 mmol/L; Blood Urea Nitrogen 55 mg/dL (7-17); Calcium 8.2 mg/dL (8.4-10.2); Carbon Dioxide 21 mmol/L (22-30); Chloride 112 mmol/L (98-107); Glucose 145 mg/dL (74-99); Magnesium 1.7 mg/dL (1.6-2.3); Non-African American GFR(CKD) 16 (>60 ml/min/1.73 sqM); Potassium 3.8 mmol/L (3.5-5.1); Sodium 139 mmol/L (137-145)
--- NOTE | 2023-12-02 10:50 | P.PN ---
Subjective Patient is seen in follow-up for acute kidney injury on chronic kidney disease. Creatinine up to 3.0 today. Receiving IV Lasix. Nonoliguric. Denies chest pain or shortness of breath. On room air. Vital signs are stable. General: No acute distress. HEENT: Head exam is unremarkable. LUNGS: No audible rhonchi or wheezes. HEART: Rate and Rhythm are regular. ABDOMEN: Nontender. EXTREMITITES: 1+ edema. Objective - Vital Signs Vital signs: Vital Signs Temp 98.3 F 12/02/23 04:00 Pulse 74 12/02/23 04:00 Resp 18 12/02/23 04:00 BP 138/56 12/02/23 04:00 Pulse Ox 93 L 12/02/23 04:00 FiO2 Intake & Output 12/01/23 12/02/23 12/02/23 18:59 06:59 18:59 Intake Total 298 180 Output Total 500 300 Balance 298 -500 -120 Weight 117.5 kg 113 kg Intake: Oral 298 180 Output: Urine 500 300 Other: Voiding Method External Catheter External Catheter # Voids 1 3 # Bowel Movements 1 1 - Labs CBC & Chem 7: 12/01/23 10:01 12/02/23 09:19 Labs: Abnormal Lab Results - Last 24 Hours (Table) 12/01/23 12/01/23 12/01/23 Range/Units 10:01 10:01 10:01 RBC 3.30 L (3.80-5.40) m/uL Hgb 8.7 L (11.4-16.0) gm/dL Hct 28.6 L (34.0-46.0) % MCHC 30.4 L (31.0-37.0) g/dL RDW 16.1 H (11.5-15.5) % Chloride 113 H (98-107) mmol/L Carbon Dioxide 19 L (22-30) mmol/L BUN 54 H (7-17) mg/dL Creatinine 2.70 H (0.52-1.04) mg/dL Glucose 213 H (74-99) mg/dL POC Glucose (mg/dL) (70-110) mg/dL Hemoglobin A1c 9.4 H (<=6.0) % Calcium (8.4-10.2) mg/dL Iron 37 L (50-170) UG/DL Transferrin 167.0 L (204.0-354.0) mg/dL Alkaline Phosphatase 163 H (38-126) U/L Total Protein 6.2 L (6.3-8.2) g/dL Albumin 2.5 L (3.5-5.0) g/dL 12/01/23 12/01/23 12/01/23 Range/Units 11:46 16:48 20:09 RBC (3.80-5.40) m/uL Hgb (11.4-16.0) gm/dL Hct (34.0-46.0) % MCHC (31.0-37.0) g/dL RDW (11.5-15.5) % Chloride (98-107) mmol/L Carbon Dioxide (22-30) mmol/L BUN (7-17) mg/dL Creatinine (0.52-1.04) mg/dL Glucose (74-99) mg/dL POC Glucose (mg/dL) 216 H 230 H 239 H (70-110) mg/dL Hemoglobin A1c (<=6.0) % Calcium (8.4-10.2) mg/dL Iron (50-170) UG/DL Transferrin (204.0-354.0) mg/dL Alkaline Phosphatase (38-126) U/L Total Protein (6.3-8.2) g/dL Albumin (3.5-5.0) g/dL 12/02/23 12/02/23 Range/Units 06:02 09:19 RBC (3.80-5.40) m/uL Hgb (11.4-16.0) gm/dL Hct (34.0-46.0) % MCHC (31.0-37.0) g/dL RDW (11.5-15.5) % Chloride 112 H (98-107) mmol/L Carbon Dioxide 21 L (22-30) mmol/L BUN 55 H (7-17) mg/dL Creatinine 3.00 H (0.52-1.04) mg/dL Glucose 145 H (74-99) mg/dL POC Glucose (mg/dL) 166 H (70-110) mg/dL Hemoglobin A1c (<=6.0) % Calcium 8.2 L (8.4-10.2) mg/dL Iron (50-170) UG/DL Transferrin (204.0-354.0) mg/dL Alkaline Phosphatase (38-126) U/L Total Protein (6.3-8.2) g/dL Albumin (3.5-5.0) g/dL Assessment and Plan Plan: Assessment: 1. Acute kidney injury secondary to ATN secondary to cardiorenal syndrome. Creatinine 2.9 upon admission at [facility] -3.0 today. No hydronephrosis noted on kidney ultrasound. 2. Chronic kidney disease stage IV secondary to diabetic kidney disease. Creatinine as low as 2.1 in December 2021 and near 3.3 in April 2023. 3. Acute on chronic diastolic CHF and mild to moderate mitral regurgitation. 4. Hypertension with chronic kidney disease. Stable. 5. Volume overload. Improved with diuresis. 6. Diabetes mellitus. 7. Metabolic acidosis secondary to chronic kidney disease maintained on oral bicarb. Better. 8. Anemia of chronic kidney disease. Iron deficiency noted. Plan: Change Lasix to 40 mg orally twice daily. Maintain Farxiga. Low-salt diet and 1500 cc fluid restriction. Add IV iron. Add magnesium oxide. Avoid nephrotoxins. Continue to monitor renal function and urine output. Follow-up outpatient 1 week postdischarge.
[2023-12-02 11:14] VITALS: RESP 17
[2023-12-02 11:37] LABS: Glucose,Whole Blood 182 mg/dL (70-110)
[2023-12-02] MEDS: SODIUM FERRIC GLUCONAT-SUCROSE 125 MG in SODIUM CHLORIDE 0.9% 100 ML IVPB SCH (12:29)
[2023-12-02] MEDS: MAGNESIUM OXIDE 400 MG TAB PO SCH (12:29)
[2023-12-02 12:44] VITALS: BMI 45.6
[2023-12-02] MEDS ORDERED: Magnesium Replacement Protocol 1 EACH MISC MISCELLANE PRN (13:03)
--- NOTE | 2023-12-02 15:04 | P.PN ---
Subjective Progress Note Date: 12/02/23 Chief complaint: Shortness of breath and bilateral lower extremities edema History of present illness: The patient is a pleasant 58-year-old female patient with a past medical history significant for overweight as well as poor functional capacity and also diabetes and hypertension and dyslipidemia and chronic kidney disease. The patient sees a economic developer in [facility]. She presented to the hospital complaining of progressive exertional dyspnea for the last 2 weeks associated with progressive bilateral lower extremities edema and about 25 pounds weight gain. She never been diagnosed with congestive heart failure. She has not been watching her diet and she has been using high salt diet and eating pickles at least 3 times a week. Beside the shortness of breath and lower extremities edema she reports no pain in the chest and no dizziness or lightheadedness and no feeling of heart racing or fluttering and no presyncope or syncope. She underwent further workup including an EKG and that showed sinus mechanism with nonspecific changes anteriorly. Beside that she underwent NT proBNP and that came in to be at 501. The chest x-ray showed pulmonary vascular congestions. Her creatinine came to be significantly elevated and nephrology has been consulted to see the patient. It was noted that her pressure has been elevated through her hospital stay and the pressure seems to be consistent with stage II hypertension and currently she is on carvedilol as well as amlodipine. Examination revealed regular rhythm with a systolic murmur at the right upper sternal border and apical area with diminished breathing sounds bilaterally and severe bilateral lower extremities pitting edema and chronic skin changes. 11/30 Patient states her shortness of breath is much better and back to normal. Noted the patient's blood pressure is high 171/72 and patient states that her blood pressure usually runs in the 160s at home. She denies having any chest pain or chest pressure. Repeat blood work reveals sodium 139, potassium 3.8, BUN 54 cre atinine 2.7. Hemoglobin 8.7. Patient has been on Lasix 40 mg IV every 8 hours. Her lower extremity edema is improving. Hydralazine has been added yesterday. 12/01 Nephrology has transition IV Lasix to oral 40 mg twice daily. Yesterday, we started patient on Farxiga and lisinopril. Blood pressure 139/63, heart rate 68, pulse ox 95% on room air. Repeat blood work reveals worsening renal funct ion with BUN 55 creatinine 3. Potassium 3.8. Physical Examination Gen: This is a 58-year-old female in no acute distress. HEENT: Head is atraumatic, normocephalic. Pupils equal, round. Sclerae is an icteric. LUNGS: Diminished breath sounds bilaterally no intercostal retractions. HEART: Regular rate and rhythm. Systolic murmur at the right upper sternal border and apical area. ABDOMEN: Soft. Bowel sounds are present. No masses. No tenderness. EXTREMITIES: 1+ bilateral pedal edema, chronic dark skin changes. No calf tenderness. NEUROLOGICAL: Patient is awake, alert and oriented x3. Assessment Heart failure exacerbation with evidence of right and left failure of unknown etiology Heart murmur on examination Noncompliance with diet/low-sodium diet Acute on chronic renal failure Multiple comorbid conditions including diabetes and hypertension and dyslipidemia and obesity Plan IV Lasix transition to oral by nephrology Continue patient on Coreg, Farxiga, lisinopril, amlodipine, hydralazine Continue monitoring the kidney function and electrolytes Patient is cleared for discharge by cardiology and may follow-up in the office with her economic developer in [place] in 1 to 2 weeks. Nurse practitioner note has been reviewed, I agree with documented findings and plan of care. Patient was seen and examined. Objective - Vital Signs Vital signs: Vital Signs Temp 98.1 F 12/02/23 08:15 Pulse 68 12/02/23 08:15 Resp 17 12/02/23 08:15 BP 139/63 12/02/23 08:15 Pulse Ox 95 12/02/23 08:15 FiO2 Intake & Output 12/01/23 12/02/23 12/02/23 18:59 06:59 18:59 Intake Total 298 360 Output Total 500 340 Balance 298 -500 20 Weight 117.5 kg 113 kg 113 kg Intake: Oral 298 360 Output: Urine 500 300 Post Void Residual 40 Other: Voiding Method External Catheter External Catheter # Voids 1 3 # Bowel Movements 1 1 - Labs CBC & Chem 7: 12/01/23 10:01 12/02/23 09:19 Labs: Abnormal Lab Results - Last 24 Hours (Table) 12/01/23 12/01/23 12/01/23 Range/Units 10:01 10:01 16:48 Chloride (98-107) mmol/L Carbon Dioxide (22-30) mmol/L BUN (7-17) mg/dL Creatinine (0.52-1.04) mg/dL Glucose (74-99) mg/dL POC Glucose (mg/dL) 230 H (70-110) mg/dL Hemoglobin A1c 9.4 H (<=6.0) % Calcium (8.4-10.2) mg/dL Iron 37 L (50-170) UG/DL Transferrin 167.0 L (204.0-354.0) mg/dL 12/01/23 12/02/23 12/02/23 Range/Units 20:09 06:02 09:19 Chloride 112 H (98-107) mmol/L Carbon Dioxide 21 L (22-30) mmol/L BUN 55 H (7-17) mg/dL Creatinine 3.00 H (0.52-1.04) mg/dL Glucose 145 H (74-99) mg/dL POC Glucose (mg/dL) 239 H 166 H (70-110) mg/dL Hemoglobin A1c (<=6.0) % Calcium 8.2 L (8.4-10.2) mg/dL Iron (50-170) UG/DL Transferrin (204.0-354.0) mg/dL 12/02/23 Range/Units 11:36 Chloride (98-107) mmol/L Carbon Dioxide (22-30) mmol/L BUN (7-17) mg/dL Creatinine (0.52-1.04) mg/dL Glucose (74-99) mg/dL POC Glucose (mg/dL) 182 H (70-110) mg/dL Hemoglobin A1c (<=6.0) % Calcium (8.4-10.2) mg/dL Iron (50-170) UG/DL Transferrin (204.0-354.0) mg/dL
[2023-12-02 15:44] VITALS: BP 177/73; PULSE 77; TEMP 97.9
[2023-12-02 16:09] LABS: Glucose,Whole Blood 206 mg/dL (70-110)
[2023-12-02] MEDS: FUROSEMIDE 40 MG TAB PO SCH (16:12)
[2023-12-02] MEDS: MAGNESIUM SULFATE-D5W PMX 1 GM in DEXTROSE/WATER 1 100ML.BAG IVPB ONE (16:13)
--- NOTE | 2023-12-03 15:56 | P.DS ---
Providers Date of admission: 11/29/23 20:18 Attending physician: Stephanie Rodriguez Consults: 11/29/23 20:18 Consult Physician Routine Consulting Provider: Greyson Corado Consult Reason/Comments: CHF Do you want consulting provider notified?: Yes 11/29/23 20:22 Consult Physician Routine Consulting Provider: Compa Tejada Consult Reason/Comments: Depression, suicidal thoughts Do you want consulting provider notified?: Yes, Notify in am 11/30/23 09:17 Consult Physician Routine Consulting Provider: Urvashi Bowman Consult Reason/Comments: Acute on chronic kidney disease, Do you want consulting provider notified?: Yes Primary care physician: Stated None Hospital Course: Final Diagnosis Acute CHF, diastolic dysfunction. Small pericardial effusion Acute on chronic kidney disease Cardiorenal syndrome Hypertension Hyperlipidemia Diabetes mellitus type 2 Hypothyroidism Depression Discharge Disposition Patient stable for discharge home. She was cleared by nephrology and cardiology with close follow-up as recommended in the office in 1 week. Patient will continue on a 1500 cc fluid restriction per 24 hours as well as a low-sodium diet. This was discussed with the patient as well as the importance of weighing herself daily and to notify her provider of a weight gain of more than 3 to 5 pounds in a few days or 7 pounds in a week. Patient does report she has a scale at home and can be compliant with this. Patient was discharged on oral Lasix twice a day and the torsemide has been discontinued. Patient should repeat a basic metabolic panel in 2 to 3 days. Hospital Course Patient is a 58-year-old lady with past medical history significant for chronic kidney disease, hypertension, diabetes mellitus presented to the ER as a transfer from [facility] for worsening shortness of breath and lower extremity swelling. Patient stated that she has been noticing for the last couple of weeks she has been having worsening shortness of breath present on rest as well as exertion. Denied any chest pain. There is complaint of swelling of lower extremities. Denied any fever or chills. Denies any nausea, vomiting or abdominal pain. There is no complaint of lightheaded or dizziness. Because of these worsening symptoms, she initially presented to [facility] and later transferred to [facility] Patient admitted to internal medicine service. Patient had continued pitting edema was treated with IV Lasix. Echocardiogram reveals a normal LV systolic function with mild to moderate MR with a small pericardial effusion. Renal ultrasound reveals no hydronephrosis. Patient was evaluated closely by cardiology and nephrology. Her creatinine is 3.00, BUN of 55. Clinically she improved she is no longer short of breath and her lower extremity edema has significantly improved as well. She was cleared for discharge she is not having any chest discomfort and has been up ambulating. Patient was recommended for subacute rehab however she refused and would like to discharge home. Patient to see her contract consultant in 1 week on discharge. As well as nephrology. Please see medication reconciliation for a list of current medications. Thank you for allowing us to participate in the care of this patient. The impression and plan of care has been dictated by Betty Duran, Nurse Practitioner as directed. Dr. Tammi MD I have performed a history and physical examination and medical decision making of this patient, discussed the same with the dictator, and agree with the dictators assessment and plan as written, documented as a scribe. Based on total visit time, I have performed more than 50% of this visit. Patient Condition at Discharge: Fair Plan - Discharge Summary Discharge Rx Participant: Yes New Discharge Prescriptions: New Nystatin 100,000 Unit/gm Powd [Mycostatin Powder] 1 applic TOPICAL BID #1 each Furosemide [Lasix] 40 mg PO BID #60 tablet Continue Pravastatin Sodium [Pravachol] 20 mg PO HS Semaglutide [Ozempic] 1 mg SQ MO Insulin Degludec [Tresiba Flextouch U-200 Pen] 40 units SQ DAILY busPIRone HCl [Buspar] 5 mg PO BID Ergocalciferol (Vitamin D2) [Drisdol (50,000 Iu)] 1,250 mcg PO MO Potassium Chloride 10 meq PO DAILY calcitrioL 0.25 mcg PO DAILY amLODIPine [Norvasc] 10 mg PO DAILY Ferrous Sulfate [Feosol] 325 mg PO DAILY #30 tab Sodium Bicarbonate 325 mg PO DAILY carvediloL [Coreg] 6.25 mg PO BID Levothyroxine Sodium [Synthroid] 88 mcg PO DAILY Docusate [Colace] 100 mg PO BID DULoxetine HCL [Cymbalta] 60 mg PO DAILY Discontinued Torsemide [Demadex] 20 mg PO DAILY #30 tablet Discharge Medication List Pravastatin Sodium [Pravachol] 20 mg PO HS 01/29/18 [History] Insulin Degludec [Tresiba Flextouch U-200 Pen] 40 units SQ DAILY 12/26/21 [History] Semaglutide [Ozempic] 1 mg SQ MO 12/26/21 [History] DULoxetine HCL [Cymbalta] 60 mg PO DAILY 11/29/23 [History] Docusate [Colace] 100 mg PO BID 11/29/23 [History] Ergocalciferol (Vitamin D2) [Drisdol (50,000 Iu)] 1,250 mcg PO MO 11/29/23 [Hist ory] Levothyroxine Sodium [Synthroid] 88 mcg PO DAILY 11/29/23 [History] Potassium Chloride 10 meq PO DAILY 11/29/23 [History] Sodium Bicarbonate 325 mg PO DAILY 11/29/23 [History] amLODIPine [Norvasc] 10 mg PO DAILY 11/29/23 [History] busPIRone HCl [Buspar] 5 mg PO BID 11/29/23 [History] calcitrioL 0.25 mcg PO DAILY 11/29/23 [History] carvediloL [Coreg] 6.25 mg PO BID 11/29/23 [History] Ferrous Sulfate [Feosol] 325 mg PO DAILY #30 tab 12/02/23 [Rx] Furosemide [Lasix] 40 mg PO BID #60 tablet 12/02/23 [Rx] Nystatin 100,000 Unit/gm Powd [Mycostatin Powder] 1 applic TOPICAL BID #1 each 12/02/23 [Rx] Follow up Appointment(s)/Referral(s): None,Stated [Primary Care Provider] - 1-2 days Jessica Arora MD [REFERRING] - 1-2 Days Unique Garcia [facility] [REFERRING] - 1 Week Ambulatory/Diagnostic Orders: Basic Metabolic Panel [LAB.AMB] Time Frame: 3 Days, Location: None Selected Magnesium [LAB.AMB] Location: None Selected Patient Instructions/Handouts: Heart Failure (DC), Dyspnea (DC) Activity/Diet/Wound Care/Special Instructions: Continue on 1500 CC fluid restriction per 24 hours and low sodium diet Weigh yourself daily and notify provider of more than 3 to 5 lbs in a few days or 7 lbs in a week. Continue on oral lasix twice a day and discontinue the torsemide. Repeat labs in 2 to 3 days Follow up with your known contract consultant Recommend to see your scrap picker in 1 week. Needs WC van ride home Discharge/Stand Alone Forms: Who Do I Call?, Community Resources, Outpatient Counseling, Personal Electroneurodiagnostic Technologist, Area PCPs Discharge Disposition: HOME SELF-CARE
== END 2023-12-02 18:57 | disposition home or self-care (01) | DRG 291 ==
LOC: EC 17:44 → 3SCARD 20:18
PROVIDERS: ADMIT Hospitalist; ATTEND Hospitalist
DX: I13.0 Hypertensive heart and chronic kidney disease with heart failure and stage 1 through stage 4 chronic kidney disease, or unspecified chronic kidney disease (principal); I50.33 Acute on chronic diastolic (congestive) heart failure; N17.0 Acute kidney failure with tubular necrosis; N18.4 Chronic kidney disease, stage 4 (severe); I31.39 Other pericardial effusion (noninflammatory); N17.9 Acute kidney failure, unspecified; R45.851 Suicidal ideations; Z68.42 Body mass index [BMI] 45.0-49.9, adult; M89.8X9 Other specified disorders of bone, unspecified site; E78.5 Hyperlipidemia, unspecified; E11.22 Type 2 diabetes mellitus with diabetic chronic kidney disease; E66.9 Obesity, unspecified; G24.01 Drug induced subacute dyskinesia; R11.0 Nausea; E03.9 Hypothyroidism, unspecified; Z79.890 Hormone replacement therapy; X58.XXXA Exposure to other specified factors, initial encounter; T50.905A Adverse effect of unspecified drugs, medicaments and biological substances, initial encounter; D63.1 Anemia in chronic kidney disease; D50.9 Iron deficiency anemia, unspecified; E11.42 Type 2 diabetes mellitus with diabetic polyneuropathy; E66.01 Morbid (severe) obesity due to excess calories; I87.8 Other specified disorders of veins; F34.1 Dysthymic disorder; I34.0 Nonrheumatic mitral (valve) insufficiency; Z79.4 Long term (current) use of insulin; Z79.899 Other long term (current) drug therapy; Z82.49 Family history of ischemic heart disease and other diseases of the circulatory system; Z90.710 Acquired absence of both cervix and uterus; Z91.119 Patient's noncompliance with dietary regimen due to unspecified reason; Z90.49 Acquired absence of other specified parts of digestive tract
CPT/HCPCS: 36415; 76770; 80048; 80053; 80306; 80320; 82728; 83036; 83540; 83550; 83735; 84484; 85025; 93005; 93306; 99285

== ENCOUNTER 2024-08-23 15:33 | Inpatient (IN) | payer MEDICARE, OTHER ==
--- NOTE | 2024-08-23 17:53 | ED ---
General Adult HPI - General Chief complaint: Abdominal Pain Stated complaint: Kidney Injury Time Seen by Provider: 08/23/24 15:35 Source: patient, EMS, RN notes reviewed, old records reviewed Mode of arrival: EMS Limitations: no limitations - History of Present Illness Initial comments: This is a 59-year-old female who was a transfer in from [facility] for small bowel obstruction. When patient arrived she stated she has been having intermittent symptoms of abdominal pain and vomiting for the last week and a half but got worse over the last couple days so she went to [facility] where they diagnosed her with small bowel obstruction. Patient denies any fever chills or cough patient denies diarrhea patient denies chest pain difficulty breathing shortness of breath. - Related Data Home Medications Medication Instructions Recorded Confirmed Pravastatin Sodium [Pravachol] 20 mg PO HS 01/29/18 08/23/24 Insulin Degludec [Tresiba 40 units SQ DAILY 12/26/21 08/23/24 Flextouch U-200 Pen] Semaglutide [Ozempic] 1 mg SQ Q7DAYS 12/26/21 08/23/24 DULoxetine HCL [Cymbalta] 60 mg PO DAILY 11/29/23 08/23/24 Ergocalciferol (Vitamin D2) 2,500 mcg PO Q7D 11/29/23 08/23/24 [Drisdol (50,000 Iu)] amLODIPine [Norvasc] 10 mg PO DAILY 11/29/23 08/23/24 busPIRone HCl [Buspar] 5 mg PO BID 11/29/23 08/23/24 Brimonidine Tartrate [Alphagan P 1 drops LEFT EYE BID 08/23/24 08/23/24 0.2% Ophth Soln] Finerenone [Kerendia] 10 mg PO DAILY 08/23/24 08/23/24 Gabapentin [Neurontin] 100 mg PO DAILY 08/23/24 08/23/24 Insulin Lispro See Protocol SQ AC-TID 08/23/24 08/23/24 Levothyroxine Sodium [Synthroid] 100 mcg PO DAILY 08/23/24 08/23/24 Sodium Bicarbonate Tab 650 mg PO BID 08/23/24 08/23/24 buPROPion SR [Wellbutrin SR] 100 mg PO Q48H 08/23/24 08/23/24 calcitrioL 0.5 mcg PO Q7D 08/23/24 08/23/24 carvediloL [Coreg] 12.5 mg PO BID 08/23/24 08/23/24 Previous Rx's Medication Instructions Recorded Furosemide [Lasix] 40 mg PO BID #60 tablet 12/02/23 Allergies Allergy/AdvReac Type Severity Reaction Status Date / Time cephalexin monohydrate AdvReac Nausea & Verified 08/23/24 17:02 [From Keflex] Vomiting Review of Systems ROS Statement: Those systems with pertinent positive or pertinent negative responses have been documented in the HPI. ROS Other: All systems not noted in ROS Statement are negative. Past Medical History Past Medical History: Heart Failure, Diabetes Mellitus, GERD/Reflux, Hypertension, Osteoarthritis (OA), Renal Disease Additional Past Medical History / Comment(s): morbid obesity,HF, Neuropathy bilateral legs Type 2 diabetes mellitus,Chronic venous stasis with dermatosis and pedal edema chronic, enterobacteria and enterococal wound infection 2018 History of Any Multi-Drug Resistant Organisms: Other MDRO Past Surgical History: Adenoidectomy, Section, Cholecystectomy, Hernia Repair, Hysterectomy, Orthopedic Surgery, Tonsillectomy Additional Past Surgical History / Comment(s): carple tunnel sx right hand, Partial small bowel resection with ventral hernia incarceration Past Anesthesia/Blood Transfusion Reactions: No Reported Reaction Past Psychological History: Depression Smoking Status: Former smoker Past Alcohol Use History: None Reported Past Drug Use History: None Reported - Past Family History Mother Family Medical History: Asthma, Myocardial Infarction ([place]) Father Family Medical History: Asthma, Cancer Sister(s) Family Medical History: Asthma, Deep Vein Thrombosis (DVT) General Exam - General Exam Comments Initial Comments: GENERAL: Patient is well-developed and well-nourished. Patient is nontoxic and well- hydrated and is in mild distress. ENT: Neck is soft and supple. No significant lymphadenopathy is noted. Oropharynx is clear. Moist mucous membranes. Neck has full range of motion without eliciting any pain. EYES: The sclera were anicteric and conjunctiva were pink and moist. Extraocular movements were intact and pupils were equal round and reactive to light. Eyelids were unremarkable. PULMONARY: Unlabored respirations. Good breath sounds bilaterally. No audible rales rhonchi or wheezing was noted. CARDIOVASCULAR: There is a regular rate and rhythm without any murmurs gallops or rubs. ABDOMEN: Soft and nontender with normal bowel sounds. I could not find any area of tenderness. Patient is morbidly obese SKIN: Skin is clear with no lesions or rashes and otherwise unremarkable. NEUROLOGIC: Patient is alert and oriented x3. Cranial nerves II through XII are grossly intact. Motor and sensory are also intact. Normal speech, volume and content. Symmetrical smile. MUSCULOSKELETAL: Normal extremities with adequate strength and full range of motion. No lower extremity swelling or edema. No calf tenderness. LYMPHATICS: No significant lymphadenopathy is noted PSYCHIATRIC: Normal psychiatric evaluation. Limitations: no limitations Course Vital Signs 08/23/24 15:37 Temperature 97.8 F Pulse Rate 67 Respiratory 18 Rate Blood Pressure 131/79 O2 Sat by Pulse 97 Oximetry Medical Decision Making - Medical Decision Making Was pt. sent in by a medical professional or institution (, PA, [facility], urgent care, hospital, or jail...) When possible be specific @ -No Did you speak to anyone other than the patient for history (EMS, parent, family, police, friend...)? What history was obtained from this source @ -No Did you review nursing and triage notes (agree or disagree)? Why? @ -I reviewed and agree with nursing and triage notes Were old charts reviewed (outside hosp., previous admission, EMS record, old EKG, old radiological studies, urgent care reports/EKG's, jail records)? Report findings @ -I reviewed the old charts today from [facility] I also reviewed the CAT scan from [facility] it did indicate that there was a early small bowel obstruction Differential Diagnosis? @ -Differential Abdominal Pain Women: Appendicitis, Cholecystitis, diverticulosis, ischemic bowel, pancreatitis, hepatitis, UTI, gastroenteritis, AAA, incarcerated hernia, bowel obstruction, constipation, inflammatory bowel, hepatitis, peptic ulcer disease, splenic infarction, perforated viscus, vulvitis, ovarian torsion, PID, kidney stone, placenta abruption, this is not meant to be an all-inclusive list EKG interpreted by me (3pts min.). @ -As above X-rays interpreted by me (1pt min.). @ -None done CT interpreted by me (1pt min.). @ -None done U/S interpreted by me (1pt. min.). @ -None done What testing was considered but not performed or refused? (CT, X-rays, U/S, labs)? Why? @ -None What meds were considered but not given or refused? Why? @ -None Did you discuss the management of the patient with other professionals (professionals i.e. , PA, [facility], lab, RT, psych nurse, web content & social media manager, belt picker, teacher, tactical/mobile watch officer, pillowcase sewer)? Give summary @ -I spoke with Dr. Moyer he agreed to admit the patient admit the patient I wrote admitting orders Was smoking cessation discussed for >3mins.? @ -No Was critical care preformed (if so, how long)? @ -No Were there social determinants of health that impacted care today? How? (Homelessness, low income, unemployed, alcoholism, drug addiction, transportation, low edu. Level, literacy, decrease access to med. care, longterm, rehab)? @ -No Was there de-escalation of care discussed even if they declined (Discuss DNR or withdrawal of care, Hospice)? DNR status @ -No What co-morbidities impacted this encounter? (DM, HTN, Smoking, COPD, CAD, Cancer, CVA, ARF, Chemo, Hep., AIDS, mental health diagnosis, sleep apnea, morbid obesity)? @ -None Was patient admitted / discharged? Hospital course, mention meds given and route, prescriptions, significant lab abnormalities, going to OR and other pertinent info. @ -Patient is currently not vomiting and does not want an NG at this time but she will be admitted for small bowel obstruction with consult to surgery Undiagnosed new problem with uncertain prognosis? @ -No Drug Therapy requiring intensive monitoring for toxicity (Heparin, Nitro, Insulin, Cardizem)? @ -No Were any procedures done? @ -No Diagnosis/symptom? @ -Small bowel obstruction Acute, or Chronic, or Acute on Chronic? @ -Acute Uncomplicated (without systemic symptoms) or Complicated (systemic symptoms)? @ -Complicated Side effects of treatment? @ -No Exacerbation, Progression, or Severe Exacerbation? @ -No Poses a threat to life or bodily function? How? (Chest pain, [place], [place], pneumonia, PE, COPD, DKA, ARF, appy, cholecystitis, CVA, Diverticulitis, Homicidal, Suicidal, threat to staff... and all critical care pts) @ -Yes this can lead to bowel and dehydration and more morbidity or mortality Disposition Clinical Impression: Small bowel obstruction Disposition: ADMITTED IP TO THIS [facility] Referrals: Jessica Arora MD [Primary Care Provider] - 1-2 days Time of Disposition: 17:53
[2024-08-23] MEDS: SODIUM CHLORIDE 0.9% 1,000 ML IV ONE (19:54)
[2024-08-24] MEDS: buPROPion SR 100 MG TABLET.ER PO SCH (00:23)
[2024-08-24] MEDS: carvediloL 12.5 MG TAB PO SCH (07:42)
[2024-08-24] MEDS: LEVOTHYROXINE 100 MCG TAB PO SCH (07:42)
[2024-08-24] MEDS: DULoxetine HCL 60 MG CAPSULE.DR PO SCH (09:45)
[2024-08-24] MEDS: FUROSEMIDE 40 MG TAB PO SCH (09:45)
[2024-08-24] MEDS: busPIRone HCl 5 MG TAB PO SCH (09:45)
[2024-08-24] MEDS: amLODIPine 10 MG TAB PO SCH (09:45)
[2024-08-24] MEDS: GABAPENTIN 100 MG CAP PO SCH (09:45)
[2024-08-24] MEDS: SODIUM BICARBONATE TAB 650 MG TAB PO SCH (09:45)
[2024-08-24] MEDS: BRIMONIDINE TARTRATE 0.2% DROPS 5 ML BTL LEFT EYE SCH (09:48)
[2024-08-24] MEDS: NON FORMULARY DRUG (Finerenone [Kerendia] 10 MG Tablet) PO SCH (09:48)
[2024-08-24 11:58] LABS: Anisocytosis Slight; Basophils % (A) 0 %; Eosinophils # (A) 0.2 k/uL (0-0.7); Eosinophils % (A) 2 %; HCT 27.2 % (34.0-46.0); HGB 8.5 gm/dL (11.4-16.0); Hypochromasia Slight; Lymphocytes # (A) 0.8 k/uL (1.0-4.8); Lymphocytes % (A) 6 %; MCH 28.3 pg (25.0-35.0); MCHC 31.2 g/dL (31.0-37.0); MCV 90.9 fL (80.0-100.0); Mean Platelet Volume 7.8; Monocytes # (A) 0.7 k/uL (0-1.0); Monocytes % (A) 5 %; Neutrophils # (A) 11.9 k/uL (1.3-7.7); Neutrophils % (A) 87 %; Platelet Count 142 k/uL (150-450); RBC 2.99 m/uL (3.80-5.40); RDW 16.6 % (11.5-15.5); WBC 13.7 k/uL (3.8-10.6)
[2024-08-24 12:20] LABS: African American GFR (CKD) 11 (>60 ml/min/1.73 sqM); Anion Gap 13 mmol/L; Blood Urea Nitrogen 69 mg/dL (7-17); Calcium 8.9 mg/dL (8.4-10.2); Carbon Dioxide 18 mmol/L (22-30); Chloride 111 mmol/L (98-107); Glucose 100 mg/dL (74-99); Non-African American GFR(CKD) 9 (>60 ml/min/1.73 sqM); Potassium 4.5 mmol/L (3.5-5.1); Sodium 142 mmol/L (137-145)
[2024-08-24 12:46] LABS: Glucose,Whole Blood 104 mg/dL (70-110)
--- NOTE | 2024-08-24 14:11 | P.GSCN ---
History of Present Illness Consult date: 08/24/24 History of present illness: CHIEF COMPLAINT: Abdominal pain HISTORY OF PRESENT ILLNESS: This is a 59-year-old female presented to the hospital as a transfer from [facility]. She has been having abdominal pain in the middle of her abdomen and episodes of vomiting for the past week. Patient reports no bowel movement for 2 days. She had been having flatus. At [place] she had a CT scan abdomen pelvis that had reported evidence of a small bowel obstruction she was transferred to [facility] for surgical evaluation. Patient reports that she is feeling better today. She is having flatus. The nausea and vomiting have resolved. She reports her abdominal pain has improved patient reports having prior history of bowel obstructions requiring surgical intervention several years ago. Her past surgical history does include , cholecystectomy, hysterectomy, hernia repair, partial small bowel resection with ventral hernia repair. PAST MEDICAL HISTORY: Heart Failure, Diabetes Mellitus, GERD/Reflux, Hypertension, Osteoarthritis (OA) , Renal Disease,morbid obesity,HF, Neuropathy bilateral legs Type 2 diabetes mellitus,Chronic venous stasis with dermatosis and pedal edema chronic, enterobacteria and enterococal wound infection 2018 PAST SURGICAL HISTORY: Adenoidectomy, Section, Cholecystectomy, Hernia Repair, Hysterectomy, Orthopedic Surgery, Tonsillectomy, carple tunnel sx right hand, Partial small bowel resection with ventral hernia incarceration MEDICATIONS: See below ALLERGIES: See below SOCIAL HISTORY: No illicit drug use. REVIEW OF SYSTEMS: CONSTITUTIONAL: Denies fever or chills. HEENT: Denies blurred vision, vision changes, or eye pain. Denies hemoptysis CARDIOVASCULAR: Denies chest pain or pressure. RESPIRATORY: No shortness of breath. GASTROINTESTINAL: See HPI for pertinent findings HEMATOLOGIC: Denies bleeding disorders. GENITOURINARY: Denies any blood in urine or increased urinary frequency. SKIN: Denies pruitis. Denies rash. PHYSICAL EXAM: VITAL SIGNS: Reviewed GENERAL: Well-developed in no acute distress. HEENT: No sclera icterus. Extraocular movements grossly intact. Moist buccal mucosa. Head is atraumatic, normocephalic. No nasal drainage. ABDOMEN: Soft. Obese. Nondistended. Patient with evidence of ventral hernia that is soft and reducible. Nontender. NEUROLOGIC: Alert and oriented. Cranial nerves II through XII grossly intact. LABORATORY DATA: IMAGING: CT scan abdomen pelvis from [place] reports a ventral hernia with herniation of small bowel loops. Mild distention of the bowel loops proximal to this hernia may represent low-grade small bowel obstruction with transition point at the hernia. Nodular contours of the liver likely related to so cirrhosis. Patchy opacities both lung bases likely represent atelectasis or infection. ASSESSMENT: 1. Incarcerated ventral hernia with partial small bowel obstruction PLAN: -Patient scheduled for ventral hernia repair tomorrow with Dr. Spencer -N.p.o. after midnight -Start clear liquid diet today -Continue IV fluids -Patient is feeling shaky with a known history of diabetes. Nursing staff to check blood sugar Physician Water Filtration Technician note has been reviewed by physician. Signing provider agrees with the documented findings, assessment, and plan of care. Past Medical History Past Medical History: Heart Failure, Diabetes Mellitus, GERD/Reflux, Hyper tension, Osteoarthritis (OA), Renal Disease Additional Past Medical History / Comment(s): morbid obesity,HF, Neuropathy bilateral legs Type 2 diabetes mellitus,Chronic venous stasis with dermatosis and pedal edema chronic, enterobacteria and enterococal wound infection 2018 History of Any Multi-Drug Resistant Organisms: Other MDRO Past Surgical History: Adenoidectomy, Section, Cholecystectomy, Hernia Repair, Hysterectomy, Orthopedic Surgery, Tonsillectomy Additional Past Surgical History / Comment(s): carple tunnel sx right hand, Partial small bowel resection with ventral hernia incarceration Past Anesthesia/Blood Transfusion Reactions: No Reported Reaction Past Psychological History: Depression Smoking Status: Former smoker Past Alcohol Use History: None Reported Past Drug Use History: None Reported - Past Family History Mother Family Medical History: Asthma, Myocardial Infarction ([place]) Father Family Medical History: Asthma, Cancer Sister(s) Family Medical History: Asthma, Deep Vein Thrombosis (DVT) Medications and Allergies Home Medications Medication Instructions Recorded Confirmed Type Pravastatin Sodium [Pravachol] 20 mg PO HS 01/29/18 08/23/24 History Insulin Degludec [Tresiba 40 units SQ DAILY 12/26/21 08/23/24 History Flextouch U-200 Pen] Semaglutide [Ozempic] 1 mg SQ Q7DAYS 12/26/21 08/23/24 History DULoxetine HCL [Cymbalta] 60 mg PO DAILY 11/29/23 08/23/24 History Ergocalciferol (Vitamin D2) 2,500 mcg PO Q7D 11/29/23 08/23/24 History [Drisdol (50,000 Iu)] amLODIPine [Norvasc] 10 mg PO DAILY 11/29/23 08/23/24 History busPIRone HCl [Buspar] 5 mg PO BID 11/29/23 08/23/24 History Furosemide [Lasix] 40 mg PO BID #60 tablet 12/02/23 08/23/24 Rx Brimonidine Tartrate [Alphagan P 1 drops LEFT EYE BID 08/23/24 08/23/24 History 0.2% Ophth Soln] Finerenone [Kerendia] 10 mg PO DAILY 08/23/24 08/23/24 History Gabapentin [Neurontin] 100 mg PO DAILY 08/23/24 08/23/24 History Insulin Lispro See Protocol SQ AC-TID 08/23/24 08/23/24 History Levothyroxine Sodium [Synthroid] 100 mcg PO DAILY 08/23/24 08/23/24 History Sodium Bicarbonate Tab 650 mg PO BID 08/23/24 08/23/24 History buPROPion SR [Wellbutrin SR] 100 mg PO Q48H 08/23/24 08/23/24 History calcitrioL 0.5 mcg PO Q7D 08/23/24 08/23/24 History carvediloL [Coreg] 12.5 mg PO BID 08/23/24 08/23/24 History Allergies Allergy/AdvReac Type Severity Reaction Status Date / Time cephalexin monohydrate AdvReac Nausea & Verified 08/23/24 17:02 [From Keflex] Vomiting Surgical - Exam Vital Signs Temp Pulse Resp BP Pulse Ox 97.8 F 67 18 131/79 97 08/23/24 15:37 08/23/24 15:37 08/23/24 15:37 08/23/24 15:37 08/23/24 15:37 Results - Labs 08/24/24 11:40 08/24/24 11:40
[2024-08-24] MEDS: PIPERACILLIN-TAZOBACTAM 3.375 GM in SODIUM CHLORIDE 0.9% 100 ML IVPB SCH (15:49)
[2024-08-24 17:13] LABS: Glucose,Whole Blood 181 mg/dL (70-110)
--- NOTE | 2024-08-24 19:11 | P.HPIM ---
History of Present Illness H&P Date: 08/24/24 Chief Complaint: Abdominal pain I am covering for Dr. Reilly Moyer was unwell to call me this evening. 59-year-old patient, follows with . Chronic medical conditions include CHF, diabetes, GERD, hypertension, osteoarthritis, bilateral peripheral neuropathy, chronic venous stasis dermatosis. Baseline patient nonambulatory. Lives with her 3 sons. To help her with wheelchair. Patient presents abdominal pain for 1 week. Also increased vomiting. The last vomiting was 3 days ago. Also had some diarrhea. Denied any fever and chills. CT scan has shown from [facility] ventral hernia with herniation of small bowel loops. With some transition point. Plan is for patient to be n.p.o. after midnight for surgical intervention tomorrow. Review of systems: GEN.: Tired EYES: None HEENT: None NECK: None RESPIRATORY: None CARDIOVASCULAR: None GASTROINTESTINAL: As above] GENITOURINARY: None MUSCULOSKELETAL: [Some joint pains LYMPHATICS: None HEMATOLOGICAL: None PSYCHIATRY: None NEUROLOGICAL: Nonambulatory. Social history: Former smoker. 3 sons help her get into a wheelchair. Lives with her 3 sons. Physical examination: VITAL SIGNS: 98.7, 75, 17, 149 x 65, 94% room air GENERAL: [BMI 45.2, reclining bed awake a bit tired appearing. EYES: Pupils equal. Conjunctiva nasima l. HEENT: External appearance of nose and ears normal, oral cavity grossly normal. NECK: JVD unable to assess; masses not palpable. HEART: Heart sounds are distant; no edema. LUNGS: Respiratory rate normal; distant breath sounds. ABDOMEN: Soft, nontender, liver spleen not palpable, no masses palpable. Guzman catheter PSYCH: Alert and oriented x3; mood and affect tired a l. MUSCULOSKELETAL:No Clubbing/cyanosis;muscles-grossly intact NEUROLOGICAL: Cranial nerves grossly intact; no facial asymmetry, decreased bowel lower extremity. LYMPHATICS: No lymph nodes palpable in the axilla and neck INVESTIGATIONS, reviewed in the clinical context: August 24, 2024: White count 13.7 hemoglobin 8.5 platelets 142 sodium 142 potassium 4.5 BUN [address] scan abdomen pelvis from [facility]: Ventral hernia with herniation of small bowel loops. Mild distention of bowel loops proximal to the hernia may represent low-grade small bowel obstruction with transition point at the hernia. Nodular contour of the liver possible cirrhosis. Patchy opacity lung bases possibly atelectasis/infection. Assessment plan: -Acute small bowel obstruction in the ventral hernia of the abdomen. On clear liquid diet. N.p.o. after midnight. Will be taken down for surgery by Dr Spencer -Chronic congestive heart failure from diastolic dysfunction EF 55 to 60%. Mild to moderate MR. Follow fluid status Consult cardiology for perioperative management. -Hyperlipidemia Pravachol -Chronic kidney disease stage IV secondary diabetic kidney disease. -Diabetes mellitus type 2, chronically on insulin Tresiba 40 units a day. Accu-Cheks with sliding scale insulin -Hypothyroid Synthroid 100 mcg a day -Essential hypertension Amlodipine 10 mg a day. Coreg. -Depression Wellbutrin SR, Cymbalta, BuSpar nuclear -Morbid obesity BMI 45.2 Ozempic -Chronic medical debility. Nonambulatory. Does use a wheelchair. Care was discussed with patient. proBNP after midnight. Given patient's comorbidities and poor functional status patient is a moderate risk for surgery. With no other absolute complications. Past Medical History Past Medical History: Heart Failure, Diabetes Mellitus, GERD/Reflux, Hyperten sophy, Osteoarthritis (OA), Renal Disease Additional Past Medical History / Comment(s): morbid obesity,HF, Neuropathy bilateral legs Type 2 diabetes mellitus,Chronic venous stasis with dermatosis and pedal edema chronic, enterobacteria and enterococal wound infection 2018 History of Any Multi-Drug Resistant Organisms: Other MDRO Past Surgical History: Adenoidectomy, Section, Cholecystectomy, Hernia Repair, Hysterectomy, Orthopedic Surgery, Tonsillectomy Additional Past Surgical History / Comment(s): carple tunnel sx right hand, Partial small bowel resection with ventral hernia incarceration Past Anesthesia/Blood Transfusion Reactions: No Reported Reaction Past Psychological History: Depression Smoking Status: Former smoker Past Alcohol Use History: None Reported Past Drug Use History: None Reported - Past Family History Mother Family Medical History: Asthma, Myocardial Infarction ([place]) Father Family Medical History: Asthma, Cancer Sister(s) Family Medical History: Asthma, Deep Vein Thrombosis (DVT) Medications and Allergies Home Medications Medication Instructions Recorded Confirmed Type Pravastatin Sodium [Pravachol] 20 mg PO HS 01/29/18 08/23/24 History Insulin Degludec [Tresiba 40 units SQ DAILY 12/26/21 08/23/24 History Flextouch U-200 Pen] Semaglutide [Ozempic] 1 mg SQ Q7DAYS 12/26/21 08/23/24 History DULoxetine HCL [Cymbalta] 60 mg PO DAILY 11/29/23 08/23/24 History Ergocalciferol (Vitamin D2) 2,500 mcg PO Q7D 11/29/23 08/23/24 History [Drisdol (50,000 Iu)] amLODIPine [Norvasc] 10 mg PO DAILY 11/29/23 08/23/24 History busPIRone HCl [Buspar] 5 mg PO BID 11/29/23 08/23/24 History Furosemide [Lasix] 40 mg PO BID #60 tablet 12/02/23 08/23/24 Rx Brimonidine Tartrate [Alphagan P 1 drops LEFT EYE BID 08/23/24 08/23/24 History 0.2% Ophth Soln] Finerenone [Kerendia] 10 mg PO DAILY 08/23/24 08/23/24 History Gabapentin [Neurontin] 100 mg PO DAILY 08/23/24 08/23/24 History Insulin Lispro See Protocol SQ AC-TID 08/23/24 08/23/24 History Levothyroxine Sodium [Synthroid] 100 mcg PO DAILY 08/23/24 08/23/24 History Sodium Bicarbonate Tab 650 mg PO BID 08/23/24 08/23/24 History buPROPion SR [Wellbutrin SR] 100 mg PO Q48H 08/23/24 08/23/24 History calcitrioL 0.5 mcg PO Q7D 08/23/24 08/23/24 History carvediloL [Coreg] 12.5 mg PO BID 08/23/24 08/23/24 History Allergies Allergy/AdvReac Type Severity Reaction Status Date / Time cephalexin monohydrate AdvReac Nausea & Verified 08/23/24 17:02 [From Keflex] Vomiting Physical Exam Vitals: Vital Signs Temp Pulse Pulse Resp BP BP Pulse Ox 08/24/24 16:14 98.7 F 75 17 149/65 94 L 08/24/24 10:56 71 18 133/54 94 L 08/24/24 09:44 79 18 133/51 94 L 08/24/24 07:40 73 18 147/64 95 08/24/24 06:00 63 17 137/58 96 08/24/24 00:00 71 17 147/67 96 08/23/24 20:02 72 16 147/59 95 Intake and Output 08/24/24 08/24/24 08/24/24 06:59 14:59 22:59 Intake Total 660 Output Total 1000 500 Balance -1000 160 Intake: Oral 660 Output: Urine 1000 500 Other: Voiding Method Indwelling Catheter # Bowel Movements 1 Weight 112.037 kg Results CBC & Chem 7: 08/24/24 11:40 08/24/24 11:40 Labs: Abnormal Lab Results - Last 24 Hours (Table) 08/24/24 08/24/24 08/24/24 Range/Units 11:40 11:40 14:25 WBC 13.7 H (3.8-10.6) k/uL RBC 2.99 L (3.80-5.40) m/uL Hgb 8.5 L (11.4-16.0) gm/dL Hct 27.2 L (34.0-46.0) % RDW 16.6 H (11.5-15.5) % Plt Count 142 L (150-450) k/uL Neutrophils # 11.9 H (1.3-7.7) k/uL Lymphocytes # 0.8 L (1.0-4.8) k/uL Chloride 111 H (98-107) mmol/L Carbon Dioxide 18 L (22-30) mmol/L BUN 69 H (7-17) mg/dL Creatinine 4.78 H (0.52-1.04) mg/dL Glucose 100 H (74-99) mg/dL POC Glucose (mg/dL) (70-110) mg/dL Crossmatch See Detail 08/24/24 Range/Units 17:11 WBC (3.8-10.6) k/uL RBC (3.80-5.40) m/uL Hgb (11.4-16.0) gm/dL Hct (34.0-46.0) % RDW (11.5-15.5) % Plt Count (150-450) k/uL Neutrophils # (1.3-7.7) k/uL Lymphocytes # (1.0-4.8) k/uL Chloride (98-107) mmol/L Carbon Dioxide (22-30) mmol/L BUN (7-17) mg/dL Creatinine (0.52-1.04) mg/dL Glucose (74-99) mg/dL POC Glucose (mg/dL) 181 H (70-110) mg/dL Crossmatch Thrombosis Risk Factor Assmnt - Choose All That Apply Any of the Below Risk Factors Present?: Yes Each Factor Represents 1 point: Medical pt on bed rest Each Risk Factor Represents 2 Points: Age 61-74 years, Patient confined to bed Thrombosis Risk Factor Assessment Total Risk Factor Score: 5 Thrombosis Risk Factor Assessment Level: High Risk
[2024-08-24 20:14] LABS: Glucose,Whole Blood 274 mg/dL (70-110)
[2024-08-24] MEDS: ENOXAPARIN 30 MG/0.3 ML SYRINGE SQ SCH (20:33)
[2024-08-24] MEDS: PRAVASTATIN SODIUM 20 MG TAB PO SCH (20:33)
[2024-08-24] MEDS ORDERED: ENOXAPARIN 40 MG/0.4 ML SYRINGE SQ SCH (21:00)
[2024-08-24] MEDS: NYSTATIN 100,000 UNIT/GM POWD 15 GM TOPICAL SCH (22:54)
[2024-08-25 03:44] LABS: Anisocytosis Slight; Basophils % (A) 0 %; Eosinophils # (A) 0.1 k/uL (0-0.7); Eosinophils % (A) 2 %; HCT 26.7 % (34.0-46.0); HGB 8.5 gm/dL (11.4-16.0); Hypochromasia Slight; Lymphocytes # (A) 0.8 k/uL (1.0-4.8); Lymphocytes % (A) 11 %; MCHC 31.8 g/dL (31.0-37.0); MCV 87.9 fL (80.0-100.0); Mean Platelet Volume 7.7; Monocytes # (A) 0.4 k/uL (0-1.0); Monocytes % (A) 5 %; Neutrophils # (A) 6.2 k/uL (1.3-7.7); Neutrophils % (A) 82 %; Platelet Count 112 k/uL (150-450); RBC 3.04 m/uL (3.80-5.40); RDW 16.2 % (11.5-15.5); WBC 7.6 k/uL (3.8-10.6)
[2024-08-25 03:59] LABS: African American GFR (CKD) 10 (>60 ml/min/1.73 sqM); Anion Gap 10 mmol/L; Blood Urea Nitrogen 65 mg/dL (7-17); Calcium 8.4 mg/dL (8.4-10.2); Carbon Dioxide 20 mmol/L (22-30); Chloride 107 mmol/L (98-107); Glucose 149 mg/dL (74-99); Non-African American GFR(CKD) 9 (>60 ml/min/1.73 sqM); Potassium 3.7 mmol/L (3.5-5.1); Sodium 137 mmol/L (137-145)
[2024-08-25 07:18] LABS: Glucose,Whole Blood 143 mg/dL (70-110)
--- NOTE | 2024-08-25 09:12 | P.CRDCN ---
History of Present Illness History of present illness: HISTORY OF PRESENT ILLNESS: This is a 59-year-old female with a past medical history significant for hypertension, hyperlipidemia, morbid obesity, chronic kidney disease, hypothyroidism, and diabetes. Patient follows with a application software engineer in [place] that she states that she sees once a year. However she does not know the name. We have been asked to see the patient in consultation for perioperative cardiac management. Patient examined at the bedside. Patient presented to the hospital for chief complaint of abdominal pain. Patient also reports having nausea and vomiting which has since resolved. Patient was found to have incarcerated ventral hernia with partial small bowel obstruction. Patient is scheduled to undergo surgical intervention today with general surgery. Patient denies any abdominal pain at the time of examination. She reports she has been passing flatus. She currently denies any chest pain or pressure. She states that she had surgery many years ago due to bowel obstruction and underwent small bowel resection with ventral hernia repair. Additionally as noted the patient was hospitalized in 2019 with small bowel obstruction that resolved with conserva tive management. She denies any shortness of breath. She states that she is bedbound at baseline. She does have known buttock pressure ulcers. Patient denies any known history of CAD. She believes that she had a stress test within the past few years at her primary application software engineer. DIAGNOSTICS: - EKG reveals sinus mechanism with no signs of acute ischemia. Baseline artifact. - Laboratory data: WBC 7.6. Hemoglobin 8.5. Platelet count 112. Sodium 137. Potassium 3.7. BUN 65. Creatinine 4.96. - Current home cardiac medications include amlodipine 10 mg daily, Lipitor 40 mg at night, carvedilol 12.5 mg twice a day, Lasix 40 mg twice a day - Most recent echocardiogram obtained in November 2023 revealed ejection fraction 55 to 60%, mild to moderate MR, mild TR, mild pulm sudheer regurgitation, small pericardial effusion. Mild LVH. - Cardiac catheterization history: Patient denies REVIEW OF SYSTEMS: At the time of my exam: CONSTITUTIONAL: Denies fever or chills. HEENT: Denies blurred vision, vision changes, or eye pain. Denies hemoptysis CARDIOVASCULAR: Denies chest pain. Denies orthopnea. Denies PND. Denies palpitations RESPIRATORY: Denies shortness of breath. GASTROINTESTINAL: Denies abdominal pain. Denies nausea or vomiting. HEMATOLOGIC: Denies bleeding disorders. GENITOURINARY: Denies any blood in urine. SKIN: Denies pruitis. Denies rash. PHYSICAL EXAM: VITAL SIGNS: Reviewed. GENERAL: Well-developed in no acute distress. HEENT: Head is normocephalic. Pupils are equal, round. Sclerae anicteric. Mucous membranes of the mouth are moist. Neck supple. No JVD or thyromegaly LUNGS: Respirations even and unlabored. Lungs essentially clear to auscultation bilaterally. HEART: Regular rate and rhythm. S1 and S2 heard. Systolic murmur noted ABDOMEN: Soft. Nondistended. Nontender. EXTREMITIES: Normal range of motion. No clubbing or cyanosis. Peripheral pulses intact. No lower extremity edema NEUROLOGIC: Awake and alert. Oriented x 3. ASSESSMENT: Abdominal pain Incarcerated ventral hernia with partial small bowel obstruction Chronic kidney disease Hypertension Hyperlipidemia Diabetes History of small bowel obstruction, resolved with conservative management History of small bowel resection and ventral hernia repair Hypothyroidism Morbid obesity: BMI 45.2 PLAN: No need to repeat echocardiogram Continue home cardiac medications Discontinue Pravachol. Begin atorvastatin 40 mg daily. Consult nephrology for evaluation Attempt to obtain records of patient's stress test Patient is very high risk for surgical intervention from a cardiology standpoint. Recommend conservative management if possible due to patient's multiple co-morbidities and likely underlying CAD. Patient with decreased functional capacity and reports she is bedbound at baseline. Patient is high risk for intraoperative cardiac complications. Further recommendations pending patient course Nurse practitioner note has been reviewed by physician. Signing provider agrees with the documented findings, assessment, and plan of care documented by LEGAL REFEREE as a scribe. Past Medical History Past Medical History: Heart Failure, Diabetes Mellitus, GERD/Reflux, Hypertension, Osteoarthritis (OA), Renal Disease Additional Past Medical History / Comment(s): morbid obesity,HF, Neuropathy bilateral legs Type 2 diabetes mellitus,Chronic venous stasis with dermatosis and pedal edema chronic, enterobacteria and enterococal wound infection 2018 History of Any Multi-Drug Resistant Organisms: Other MDRO Past Surgical History: Adenoidectomy, Section, Cholecystectomy, Hernia Repair, Hysterectomy, Orthopedic Surgery, Tonsillectomy Additional Past Surgical History / Comment(s): carple tunnel sx right hand, Partial small bowel resection with ventral hernia incarceration Past Anesthesia/Blood Transfusion Reactions: No Reported Reaction Past Psychological History: Depression Smoking Status: Former smoker Past Alcohol Use History: None Reported Past Drug Use History: None Reported - Past Family History Mother Family Medical History: Asthma, Myocardial Infarction ([place]) Father Family Medical History: Asthma, Cancer Sister(s) Family Medical History: Asthma, Deep Vein Thrombosis (DVT) Medications and Allergies Home Medications Medication Instructions Recorded Confirmed Type Pravastatin Sodium [Pravachol] 20 mg PO HS 01/29/18 08/23/24 History Insulin Degludec [Tresiba 40 units SQ DAILY 12/26/21 08/23/24 History Flextouch U-200 Pen] Semaglutide [Ozempic] 1 mg SQ Q7DAYS 12/26/21 08/23/24 History DULoxetine HCL [Cymbalta] 60 mg PO DAILY 11/29/23 08/23/24 History Ergocalciferol (Vitamin D2) 2,500 mcg PO Q7D 11/29/23 08/23/24 History [Drisdol (50,000 Iu)] amLODIPine [Norvasc] 10 mg PO DAILY 11/29/23 08/23/24 History busPIRone HCl [Buspar] 5 mg PO BID 11/29/23 08/23/24 History Furosemide [Lasix] 40 mg PO BID #60 tablet 12/02/23 08/23/24 Rx Brimonidine Tartrate [Alphagan P 1 drops LEFT EYE BID 08/23/24 08/23/24 History 0.2% Ophth Soln] Finerenone [Kerendia] 10 mg PO DAILY 08/23/24 08/23/24 History Gabapentin [Neurontin] 100 mg PO DAILY 08/23/24 08/23/24 History Insulin Lispro See Protocol SQ AC-TID 08/23/24 08/23/24 History Levothyroxine Sodium [Synthroid] 100 mcg PO DAILY 08/23/24 08/23/24 History Sodium Bicarbonate Tab 650 mg PO BID 08/23/24 08/23/24 History buPROPion SR [Wellbutrin SR] 100 mg PO Q48H 08/23/24 08/23/24 History calcitrioL 0.5 mcg PO Q7D 08/23/24 08/23/24 History carvediloL [Coreg] 12.5 mg PO BID 08/23/24 08/23/24 History Allergies Allergy/AdvReac Type Severity Reaction Status Date / Time cephalexin monohydrate AdvReac Nausea & Verified 08/23/24 17:02 [From Keflex] Vomiting Physical Exam Vitals: Vital Signs Temp Pulse Pulse Resp BP BP Pulse Ox 08/25/24 07:14 98.8 F 77 17 171/64 95 08/25/24 02:36 98.2 F 79 18 122/67 97 08/25/24 00:02 98.2 F 74 16 144/73 96 08/24/24 23:28 98.0 F 72 18 120/70 96 08/24/24 23:08 98.2 F 72 18 99/44 97 08/24/24 22:56 97.9 F 67 18 124/72 96 08/24/24 20:00 18 08/24/24 19:02 97.7 F 67 17 135/56 98 08/24/24 16:14 98.7 F 75 17 149/65 94 L 08/24/24 10:56 71 18 133/54 94 L 08/24/24 09:44 79 18 133/51 94 L Intake and Output 08/24/24 08/25/24 08/25/24 22:59 06:59 14:59 Intake Total 660 310 Output Total 500 1100 Balance 160 -790 Intake: Oral 660 Blood Product 0 310 Rc As-1 Unit 0 310 [id number] Output: Urine 500 1100 Other: Voiding Method Indwelling Catheter # Bowel Movements 1 2 Weight 112.037 kg Results 08/25/24 03:09 08/25/24 03:09 CBC 08/24/24 08/25/24 Range/Units 11:40 03:09 WBC 13.7 H 7.6 (3.8-10.6) k/uL RBC 2.99 L 3.04 L (3.80-5.40) m/uL Hgb 8.5 L 8.5 L (11.4-16.0) gm/dL Hct 27.2 L 26.7 L (34.0-46.0) % Plt Count 142 L 112 L (150-450) k/uL Comprehensive Metabolic Panel 08/24/24 08/25/24 Range/Units 11:40 03:09 Sodium 142 137 (137-145) mmol/L Potassium 4.5 3.7 (3.5-5.1) mmol/L Chloride 111 H 107 (98-107) mmol/L Carbon Dioxide 18 L 20 L (22-30) mmol/L BUN 69 H 65 H (7-17) mg/dL Creatinine 4.78 H 4.96 H (0.52-1.04) mg/dL Glucose 100 H 149 H (74-99) mg/dL Calcium 8.9 8.4 (8.4-10.2) mg/dL Current Medications Generic Name Dose Route Start Last Admin Trade Name Gurwinder PRN Reason Stop Dose Admin Amlodipine Besylate 10 mg 08/24/24 09:00 08/25/24 08:18 Amlodipine 10 Mg Tab PO 10 mg DAILY KASANDRA Administration Brimonidine Tartrate 1 drops 08/24/24 09:00 08/25/24 08:19 Brimonidine Tartrate 0.2% Drops 5 Ml Btl LEFT EYE 1 drops BID KASANDRA Administration Bupropion HCl 100 mg 08/23/24 23:00 08/24/24 00:23 Bupropion Sr 100 Mg Tablet.Er PO 100 mg Q48H KASANDRA Administration Buspirone HCl 5 mg 08/24/24 09:00 08/25/24 08:18 Buspirone Hcl 5 Mg Tab PO 5 mg BID KASANDRA Administration Calcitriol 0.5 mcg 08/26/24 09:00 Calcitriol 0.25 Mcg Cap PO Q7D [facility] Carvedilol 12.5 mg 08/24/24 07:30 08/25/24 08:18 Carvedilol 12.5 Mg Tab PO 12.5 mg BID-W/MEALS KASANDRA Administration Duloxetine HCl 60 mg 08/24/24 09:00 08/25/24 08:18 Duloxetine Hcl 60 Mg Capsule.Dr PO 60 mg DAILY KASANDRA Administration Enoxaparin Sodium 30 mg 08/24/24 21:00 08/24/24 20:33 Enoxaparin 30 Mg/0.3 Ml Syringe SQ 30 mg HS KASANDRA Administration Ergocalciferol 2,500 mcg 08/26/24 09:00 Ergocalciferol 1,250 Mcg (50,000 Iu) Capsule PO Q7D KASANDRA Furosemide 40 mg 08/24/24 09:00 08/25/24 08:18 Furosemide 40 Mg Tab PO 40 mg BID KASANDRA Administration Gabapentin 100 mg 08/24/24 09:00 08/25/24 08:18 Gabapentin 100 Mg Cap PO 100 mg DAILY KASANDRA Administration Piperacillin Sod/Tazobactam 100 mls @ 25 mls/hr 08/24/24 15:00 08/25/24 03:10 Sod 3.375 gm/ Sodium Chloride IVPB 25 mls/hr Q12H KASANDRA Administration Protocol Levothyroxine Sodium 100 mcg 08/24/24 06:30 08/25/24 05:38 Levothyroxine 100 Mcg Tab PO 100 mcg DAILY@0630 KASANDRA Administration Non-Formulary Medication 10 mg 08/24/24 09:00 08/25/24 08:19 Finerenone [Kerendia] PO Not Given DAILY [facility] Nystatin 1 applic 08/24/24 21:15 08/25/24 08:19 Nystatin 100,000 Unit/Gm Powd 15 Gm TOPICAL 1 applic BID KASANDRA Administration Protocol Ondansetron HCl 4 mg 08/24/24 11:09 Ondansetron 4 Mg/2 Ml Vial IVP Q6HR PRN Nausea And Vomiting Pravastatin Sodium 20 mg 08/24/24 21:00 08/24/24 20:33 Pravastatin Sodium 20 Mg Tab PO 20 mg HS KASANDRA Administration Sodium Bicarbonate 650 mg 08/24/24 09:00 08/25/24 08:18 Sodium Bicarbonate Tab 650 Mg Tab PO 650 mg BID KASANDRA Administration Intake and Output 08/24/24 08/25/24 08/25/24 22:59 06:59 14:59 Intake Total 660 310 Output Total 500 1100 Balance 160 -790 Intake: Oral 660 Blood Product 0 310 Rc As-1 Unit 0 310 [id number] Output: Urine 500 1100 Other: Voiding Method Indwelling Catheter # Bowel Movements 1 2 Weight 112.037 kg 08/25/24 03:09 08/25/24 03:09
--- NOTE | 2024-08-25 11:26 | P.NPCON ---
History of Present Illness - Reason for Consult acute renal failure, chronic renal failure - History of Present Illness Reason for consultation: Chronic kidney disease History of present illness: Patient is a 59-year-old female seen in renal consultation for chronic kidney disease. Patient has chronic kidney disease stage V secondary to diabetic kidney disease with creatinine 4.1 dated July 16, 2024. Creatinine today is 4.96. Patient came to the hospital due to abdominal pain going on for about 2 weeks. Patient states she had several episodes of emesis and also 2-3 episodes of diarrhea. Oral intake has been poor the last few days. Patient states she tolerated clear liquid diet but is currently NPO. Hemodynamically stable. She is on room air. She currently has a Guzman catheter which she states was placed at [facility] prior to being transferred here. She is nonoliguric wi th urine output documented as 2.6 L since admission. She is receiving IV fluids. Denies history of coronary artery disease. She does have longstanding history of hypertension. Denies chest pain or shortness of breath. Denies use of nonsteroidals. Vital signs are stable. General: No acute distress. HEENT: Head exam is unremarkable. LUNGS: No audible rhonchi or wheezes. HEART: Rate and Rhythm are regular. ABDOMEN: Generalized tenderness to touch. EXTREMITITES: No edema. Past Medical History Past Medical History: Heart Failure, Diabetes Mellitus, GERD/Reflux, Hypertension, Osteoarthritis (OA), Renal Disease Additional Past Medical History / Comment(s): morbid obesity,HF, Neuropathy bilateral legs Type 2 diabetes mellitus,Chronic venous stasis with dermatosis and pedal edema chronic, enterobacteria and enterococal wound infection 2018 History of Any Multi-Drug Resistant Organisms: Other MDRO Past Surgical History: Adenoidectomy, Section, Cholecystectomy, Hernia Repair, Hysterectomy, Orthopedic Surgery, Tonsillectomy Additional Past Surgical History / Comment(s): carple tunnel sx right hand, Partial small bowel resection with ventral hernia incarceration Past Anesthesia/Blood Transfusion Reactions: No Reported Reaction Past Psychological History: Depression Smoking Status: Former smoker Past Alcohol Use History: None Reported Past Drug Use History: None Reported - Past Family History Mother Family Medical History: Asthma, Myocardial Infarction ([place]) Father Family Medical History: Asthma, Cancer Sister(s) Family Medical History: Asthma, Deep Vein Thrombosis (DVT) Medications and Allergies Home Medications Medication Instructions Recorded Confirmed Type Pravastatin Sodium [Pravachol] 20 mg PO HS 01/29/18 08/23/24 History Insulin Degludec [Tresiba 40 units SQ DAILY 12/26/21 08/23/24 History Flextouch U-200 Pen] Semaglutide [Ozempic] 1 mg SQ Q7DAYS 12/26/21 08/23/24 History DULoxetine HCL [Cymbalta] 60 mg PO DAILY 11/29/23 08/23/24 History Ergocalciferol (Vitamin D2) 2,500 mcg PO Q7D 11/29/23 08/23/24 History [Drisdol (50,000 Iu)] amLODIPine [Norvasc] 10 mg PO DAILY 11/29/23 08/23/24 History busPIRone HCl [Buspar] 5 mg PO BID 11/29/23 08/23/24 History Furosemide [Lasix] 40 mg PO BID #60 tablet 12/02/23 08/23/24 Rx Brimonidine Tartrate [Alphagan P 1 drops LEFT EYE BID 08/23/24 08/23/24 History 0.2% Ophth Soln] Finerenone [Kerendia] 10 mg PO DAILY 08/23/24 08/23/24 History Gabapentin [Neurontin] 100 mg PO DAILY 08/23/24 08/23/24 History Insulin Lispro See Protocol SQ AC-TID 08/23/24 08/23/24 History Levothyroxine Sodium [Synthroid] 100 mcg PO DAILY 08/23/24 08/23/24 History Sodium Bicarbonate Tab 650 mg PO BID 08/23/24 08/23/24 History buPROPion SR [Wellbutrin SR] 100 mg PO Q48H 08/23/24 08/23/24 History calcitrioL 0.5 mcg PO Q7D 08/23/24 08/23/24 History carvediloL [Coreg] 12.5 mg PO BID 08/23/24 08/23/24 History Allergies Allergy/AdvReac Type Severity Reaction Status Date / Time cephalexin monohydrate AdvReac Nausea & Verified 08/23/24 17:02 [From Keflex] Vomiting Physical Exam Vitals: Vital Signs Temp Pulse Pulse Resp BP BP Pulse Ox 08/25/24 07:14 98.8 F 77 17 171/64 95 08/25/24 02:36 98.2 F 79 18 122/67 97 08/25/24 00:02 98.2 F 74 16 144/73 96 08/24/24 23:28 98.0 F 72 18 120/70 96 08/24/24 23:08 98.2 F 72 18 99/44 97 08/24/24 22:56 97.9 F 67 18 124/72 96 08/24/24 20:00 18 08/24/24 19:02 97.7 F 67 17 135/56 98 08/24/24 16:14 98.7 F 75 17 149/65 94 L Intake and Output 08/24/24 08/25/24 08/25/24 22:59 06:59 14:59 Intake Total 660 310 Output Total 500 1100 Balance 160 -790 Intake: Oral 660 Blood Product 0 310 Rc As-1 Unit 0 310 [id number] Output: Urine 500 1100 Other: Voiding Method Indwelling Catheter # Bowel Movements 1 2 Weight 112.037 kg Results - Lab Results Most recent lab results Calcium 8.4 mg/dL (8.4-10.2) 08/25/24 03:09 08/25/24 03:09 08/25/24 03:09 Assessment and Plan Plan: Assessment: 1. Chronic kidney disease stage V with creatinine 4.1 in July 2024. 4.96 today. Nonoliguric. 2. Diabetes mellitus. 3. Metabolic acidosis secondary to chronic kidney disease and GI losses. Better. On bicarb. 4. Anemia of chronic kidney disease. 5. Hypertension with chronic kidney disease. 6. Abdominal pain possibly related to ventral hernia/bowel obstruction. Surgery following. 7. Chronic kidney disease mineral bone disease maintained on calcitriol. Plan: Maintain IV fluids. Hold Lasix. Surgery pending. Check iron studies. Continue to monitor renal function and urine output. Continue to assess daily for need for renal placement therapy. Thank you for the consultation. I will continue to follow the patient with you during her hospital stay.
--- NOTE | 2024-08-25 11:37 | P.PN ---
Progress Note - Text Progress Note Date: 08/25/24 Chief Complaint: Tired I am covering for Dr. Reilly Moyer was unwell to call me this evening. 59-year-old patient, follows with . Chronic medical conditions include CHF, diabetes, GERD, hypertension, osteoarthritis, bilateral peripheral neuropathy, chronic venous stasis dermatosis. Baseline patient nonambulatory. Lives with her 3 sons. To help her with wheelchair. Patient presents abdominal pain for 1 week. Also increased vomiting. The last vomiting was 3 days ago. Also had some diarrhea. Denied any fever and chills. CT scan has shown from [place] ventral hernia with herniation of small bowel loops. With some transition point. Plan is for patient to be n.p.o. after midnight for surgical intervention tomorrow. August 25: Patient last nausea vomiting was on Friday that is 4 days ago. Also no bowel movement since Friday. No abdominal pain. Has been passing flatus. N.p.o. except medications. Will do 2 view abdominal x-ray. Active Medications Amlodipine Besylate (Amlodipine 10 Mg Tab) 10 mg PO DAILY [facility] Last Admin: 08/25/24 08:18 Dose: 10 mg Atorvastatin Calcium (Atorvastatin 40 Mg Tab) 40 mg PO HS [facility] Brimonidine Tartrate (Brimonidine Tartrate 0.2% Drops 5 Ml Btl) 1 drops LEFT EYE BID [facility] Last Admin: 08/25/24 08:19 Dose: 1 drops Bupropion HCl (Bupropion Sr 100 Mg Tablet.Er) 100 mg PO Q48H [facility] Last Admin: 08/24/24 00:23 Dose: 100 mg Buspirone HCl (Buspirone Hcl 5 Mg Tab) 5 mg PO BID [facility] Last Admin: 08/25/24 08:18 Dose: 5 mg Calcitriol (Calcitriol 0.25 Mcg Cap) 0.5 mcg PO Q7D [facility] Carvedilol (Carvedilol 12.5 Mg Tab) 12.5 mg PO BID-W/MEALS [facility] Last Admin: 08/25/24 08:18 Dose: 12.5 mg Duloxetine HCl (Duloxetine Hcl 60 Mg Capsule.Dr) 60 mg PO DAILY [facility] Last Admin: 08/25/24 08:18 Dose: 60 mg Enoxaparin Sodium (Enoxaparin 30 Mg/0.3 Ml Syringe) 30 mg SQ HS [facility] Last Admin: 08/24/24 20:33 Dose: 30 mg Ergocalciferol (Ergocalciferol 1,250 Mcg (50,000 Iu) Capsule) 2,500 mcg PO Q7D [facility] Gabapentin (Gabapentin 100 Mg Cap) 100 mg PO DAILY [facility] Last Admin: 08/25/24 08:18 Dose: 100 mg Piperacillin Sod/Tazobactam (Sod 3.375 gm/ Sodium Chloride) 100 mls @ 25 mls/hr IVPB Q12H [facility]; Protocol Last Admin: 08/25/24 03:10 Dose: 25 mls/hr Levothyroxine Sodium (Levothyroxine 100 Mcg Tab) 100 mcg PO DAILY@0630 [facility] Last Admin: 08/25/24 05:38 Dose: 100 mcg Non-Formulary Medication (Finerenone [Kerendia]) 10 mg PO DAILY [facility] Last Admin: 08/25/24 08:19 Dose: Not Given Nystatin (Nystatin 100,000 Unit/Gm Powd 15 Gm) 1 applic TOPICAL BID [facility]; Protocol Last Admin: 08/25/24 08:19 Dose: 1 applic Ondansetron HCl (Ondansetron 4 Mg/2 Ml Vial) 4 mg IVP Q6HR PRN PRN Reason: Nausea And Vomiting Sodium Bicarbonate (Sodium Bicarbonate Tab 650 Mg Tab) 650 mg PO BID [facility] Last Admin: 08/25/24 08:18 Dose: 650 mg Social history: Former smoker. 3 sons help her get into a wheelchair. Lives with her 3 sons. Physical examination: VITAL SIGNS: 98.8, 77, 17, 171 x 64, 95% room air GENERAL: [BMI 45.2, reclining bed awake, Maryana EYES: Pupils equal. Conjunctiva nasima l. HEENT: External appearance of nose and ears normal, oral cavity grossly normal. NECK: JVD unable to assess; masses not palpable. HEART: Heart sounds are distant; no edema. LUNGS: Respiratory rate normal; distant breath sounds. ABDOMEN: Soft, nontender, liver spleen not palpable, no masses palpable. Guzman catheter PSYCH: Alert and oriented x3; mood and affect tired a l. MUSCULOSKELETAL:No Clubbing/cyanosis;muscles-grossly intact NEUROLOGICAL: Cranial nerves grossly intact; no facial asymmetry, decreased power l lower extremity. INVESTIGATIONS, reviewed in the clinical context: Christine 15: White count 7.6 hemoglobin 8.5 potassium 3.7 BUN 65 creatinine 4.96 August 24, 2024: White count 13.7 hemoglobin 8.5 platelets 142 sodium 142 potas sium 4.5 BUN [address] scan abdomen pelvis from [place]: Ventral hernia with herniation of small bowel loops. Mild distention of bowel loops proximal to the hernia may represent low-grade small bowel obstruction with transition point at the hernia. Nodular contour of the liver possible cirrhosis. Patchy opacity lung bases possibly atelectasis/infection. Assessment plan: -Acute small bowel obstruction in the ventral hernia of the abdomen.: No diarrhea no abdominal pain no nausea vomiting since Friday. Currently NPO. Scheduled for surgery. Will order 2 view abdominal x-ray. Patient also passing flatus. -Chronic congestive heart failure from diastolic dysfunction EF 55 to 60%. Mild to moderate MR. Follow fluid status Consult cardiology for perioperative management. -Hyperlipidemia Pravachol -Chronic kidney disease stage IV secondary diabetic kidney disease. Nephrology consulted -Diabetes mellitus type 2, chronically on insulin Tresiba 40 units a day. Accu-Cheks with sliding scale insulin -Hypothyroid Synthroid 100 mcg a day -Essential hypertension Amlodipine 10 mg a day. Coreg. -Depression Wellbutrin SR, Cymbalta, BuSpar nuclear -Morbid obesity BMI 45.2 Ozempic -Chronic medical debility. Nonambulatory. Does use a wheelchair. Patient n.p.o. for possible surgery. Ordered 2 view abdominal x-ray. Follow-up with other consultants. Past Medical History Past Medical History: Heart Failure, Diabetes Mellitus, GERD/Reflux, Hypertension, Osteoarthritis (OA), Renal Disease Additional Past Medical History / Comment(s): morbid obesity,HF, Neuropathy bilateral legs Type 2 diabetes mellitus,Chronic venous stasis with dermatosis and pedal edema chronic, enterobacteria and enterococal wound infection 2018 History of Any Multi-Drug Resistant Organisms: Other MDRO Past Surgical History: Adenoidectomy, Section, Cholecystectomy, Hernia Repair, Hysterectomy, Orthopedic Surgery, Tonsillectomy Additional Past Surgical History / Comment(s): carple tunnel sx right hand, Partial small bowel resection with ventral hernia incarceration Past Anesthesia/Blood Transfusion Reactions: No Reported Reaction Past Psychological History: Depression Smoking Status: Former smoker Past Alcohol Use History: None Reported Past Drug Use History: None Reported
[2024-08-25 12:11] LABS: Glucose,Whole Blood 135 mg/dL (70-110)
--- NOTE | 2024-08-25 12:55 | XR ---
EXAMINATION TYPE: XR abdomen 2V DATE OF EXAM: 08/25/2024 12:46 PM COMPARISON: 04/21/2014 CLINICAL INDICATION: Female, 59 years old with history of f/u bowel obst; [facility] TECHNIQUE: Two views of the abdomen were obtained. FINDINGS: Underpenetrated film. Nasogastric tube has been removed. Right upper quadrant cholecystecto my clips. Moderate amount stool throughout the colon. The bowel gas pattern is nonspecific without di lated loops of small or large bowel. There is no evidence for organomegaly or pneumoperitoneum. The osseous structures are intact. No abnormal calcifications are present. Fecal material and gas are de monstrated throughout the colon and rectum. IMPRESSION: Underpenetrated film and evaluation. Nonspecific bowel gas pattern without radiographic evidence for acute process. [facility], , 08/25/2024 12:53 PM
[2024-08-25 13:57] VITALS: BMI 45.1
--- NOTE | 2024-08-25 14:01 | P.ANPRN ---
Procedure Note - Anesthesia - Nerve Block Performed Bilateral Erector Spinae Single Time Out Performed: Yes Date of Procedure: 08/25/24 Procedure Start Time: 13:39 Procedure Stop Time: 13:44 Location of Patient: PreOp Indication: Acute Post-Operative Pain, Analgesia, Requested by Surgeon Sedation Type: Sedate with meaningful contact maintained Preparation: Sterile Prep Position: Sitting Catheter: None Needle Types: Pajunk Needle Gauge: 21 Ultrasound used to visualize needle placement: Yes Ultrasound used to observe medication spread: Yes Injectate: 0.5% Ropivacaine (see comment for volume) (Ropiv 20ml+[id number], Needle level V11--Sngj side.) Blood Aspirated: No Pain Paresthesia on Injection Noted: No Resistance on Injection: Normal Image Stored and Saved: Yes Events: Uneventful and Well Tolerated
--- NOTE | 2024-08-25 14:04 | P.ANPRN ---
Procedure Note - Anesthesia - Invasive Line Left Arterial Line Time Out Performed: Yes Date of Procedure: 08/25/24 Time of Procedure: 13:55 Location of Patient: PreOp Preparation: Sterile Prep Arterial Line Location: Radial Ultrasound Used: Yes Purpose - Visualization and Identification of Vasculature: Yes Image Stored and Saved: Yes Narrative: Invasive line placement per sterile protocol utilized. AttemptX1
[2024-08-25 14:12] LABS: Glucose,Whole Blood 136 mg/dL (70-110)
[2024-08-25] MEDS: ONDANSETRON 4 MG/2 ML VIAL IVP PRN (14:22)
[2024-08-25] MEDS: DEXAMETHASONE SOD PHOSPHATE 4 MG/ML 1 ML VIAL IVP STA (14:23)
[2024-08-25] MEDS: LACTATED RINGERS 1,000 ML IV ONE (14:27)
[2024-08-25] MEDS ORDERED: DEXAMETHASONE SOD PHOSPHATE 4 MG/ML 1 ML VIAL ONE (14:38)
[2024-08-25] MEDS ORDERED: ROPIVACAINE 5 MG/ML 30 ML VIAL ONE (14:38)
[2024-08-25] MEDS ORDERED: PHENYLEPHRINE 10 MG/ML VIAL ONE (14:38)
[2024-08-25] MEDS ORDERED: ROCURONIUM 10 MG/ML (5 ML VIAL) IV ONE (14:38)
[2024-08-25] MEDS ORDERED: SUCCINYLCHOLINE CHLORIDE 200 MG/10 ML VIAL IV ONE (14:38)
[2024-08-25] MEDS ORDERED: GLYCOPYRROLATE 0.2 MG/ML 2 ML VIAL ONE (14:38)
[2024-08-25] MEDS ORDERED: LIDOCAINE 1% INJ 10MG/ML (20 ML MDV) ONE (14:38)
[2024-08-25] MEDS ORDERED: fentaNYL (PF) 50 MCG/ML 2 ML AMP ONE (14:38)
[2024-08-25] MEDS ORDERED: NEOSTIGMINE 1 MG/ML 10 ML VIAL ONE (14:38)
[2024-08-25] MEDS ORDERED: PROPOFOL 10 MG/ML 20 ML VIAL IV ONE (14:38)
[2024-08-25] MEDS ORDERED: MIDAZOLAM 2 MG/2 ML VIAL ONE (14:38)
[2024-08-25] MEDS ORDERED: ePHEDrine 50 MG/ML 1 ML VIAL ONE (14:38)
[2024-08-25] MEDS ORDERED: ceFAZolin 1 GM/50 ML BAG (PMX) ONE (14:38)
[2024-08-25] MEDS: IV FLUID CONTINUATION 1,000 ML IV ONE (14:45)
[2024-08-25] MEDS: SODIUM CHLORIDE 0.9% 50 ML with ceFAZolin 2,000 MG IV ONE (14:45)
--- NOTE | 2024-08-25 16:07 | P.PN ---
Subjective Progress Note Date: 08/25/24 SURGICAL PROGRESS NOTE CHIEF COMPLAINT: Abdominal pain HISTORY OF PRESENT ILLNESS: Patient lying in bed comfortably. Patient having flatus. Nursing staff has charted bowel movements yesterday. Patient denies any nausea or vomiting. Patient did receive a unit of blood yesterday for hemoglobin a 8.5. Repeat hemoglobin 8.5. WBC down from 13-7.6. Afebrile. Vital stable. Patient seen and evaluated by cardiology service and they reported that patient is high risk for surgery. PHYSICAL EXAM: VITAL SIGNS: Reviewed. GENERAL: Well-developed in no acute distress. HEENT: No sclera icterus. Extraocular movements grossly intact. Moist buccal mucosa. Head is atraumatic, normocephalic. ABDOMEN: Soft. Obese. Nondistended. Ventral hernia palpable. Mild tenderness palpation NEUROLOGIC: Alert and oriented. Cranial nerves II through XII grossly intact. ASSESSMENT: 1. Incarcerated ventral hernia with small bowel obstruction PLAN: -Patient scheduled for ventral hernia repair today with Dr. Spencer -Keep patient n.p.o. -All lab results, test results and event management consultant recommendations reviewed with surgeon Physician Internet Developer note has been reviewed by physician. Signing provider agrees with the documented findings, assessment, and plan of care. Objective - Vital Signs Vital signs: Vital Signs Temp 98.8 F 08/25/24 07:14 Pulse 77 08/25/24 07:14 Resp 17 08/25/24 07:14 BP 171/64 08/25/24 07:14 Pulse Ox 95 08/25/24 07:14 FiO2 Intake & Output 08/24/24 08/25/24 08/25/24 18:59 06:59 18:59 Intake Total 660 310 Output Total 1500 1100 Balance -840 -790 Weight 112.037 kg Intake: Oral 660 Blood Product 310 Rc As-1 Unit 310 [id number] Output: Urine 1500 1100 Other: Voiding Method Indwelling Catheter Indwelling Catheter Indwelling Catheter # Bowel Movements 1 2 - Labs CBC & Chem 7: 08/25/24 03:09 08/25/24 03:09 Labs: Abnormal Lab Results - Last 24 Hours (Table) 08/24/24 08/24/24 08/24/24 Range/Units 14: 17:11 20:13 RBC (3.80-5.40) m/uL Hgb (11.4-16.0) gm/dL Hct (34.0-46.0) % RDW (11.5-15.5) % Plt Count (150-450) k/uL Lymphocytes # (1.0-4.8) k/uL Carbon Dioxide (22-30) mmol/L BUN (7-17) mg/dL Creatinine (0.52-1.04) mg/dL Glucose (74-99) mg/dL POC Glucose (mg/dL) 181 H 274 H (70-110) mg/dL Crossmatch See Detail 08/25/24 08/25/24 08/25/24 Range/Units 03:09 03:09 07:17 RBC 3.04 L (3.80-5.40) m/uL Hgb 8.5 L (11.4-16.0) gm/dL Hct 26.7 L (34.0-46.0) % RDW 16.2 H (11.5-15.5) % Plt Count 112 L (150-450) k/uL Lymphocytes # 0.8 L (1.0-4.8) k/uL Carbon Dioxide 20 L (22-30) mmol/L BUN 65 H (7-17) mg/dL Creatinine 4.96 H (0.52-1.04) mg/dL Glucose 149 H (74-99) mg/dL POC Glucose (mg/dL) 143 H (70-110) mg/dL Crossmatch 08/25/24 Range/Units 12:09 RBC (3.80-5.40) m/uL Hgb (11.4-16.0) gm/dL Hct (34.0-46.0) % RDW (11.5-15.5) % Plt Count (150-450) k/uL Lymphocytes # (1.0-4.8) k/uL Carbon Dioxide (22-30) mmol/L BUN (7-17) mg/dL Creatinine (0.52-1.04) mg/dL Glucose (74-99) mg/dL POC Glucose (mg/dL) 135 H (70-110) mg/dL Crossmatch
--- NOTE | 2024-08-25 16:17 | P.OP ---
Date of Procedure: 08/25/24 Preoperative Diagnosis: Small bowel obstruction related to incarcerated incisional hernia Postoperative Diagnosis: Small obstruction related to incarcerated incisional hernia Intraperitoneal mesh Adhesions Procedure(s) Performed: Exploratory laparotomy Lyse of adhesions Excision of intraperitoneal mesh Repair of incarcerated incisional hernia Anesthesia: BETTY Surgeon: Elder Spencer Estimated Blood Loss (ml): 50 Pathology: other (Intraperitoneal mesh and hernia sac) Condition: stable Disposition: PACU Description of Procedure: The patient was placed on the op table in the supine position. She received general endotracheal tube anesthesia. Her abdomen was prepped and draped you sterile fashion. The patient had an incarcerated incisional hernia located near the umbilicus. The skin was incised. Using blunt sharp/electrocautery the subcu tissues were divided off the hernia sac. The hernia sac was then opened. There was incarcerated small bowel which appear to be partially obstructed within the hernia sac. The caliber of the bowel was dilated. There was free-floating mesh seen in the hernia sac. This was dissected free and sent to pathology. Approximately 45 minutes of operative use Elase adhesions. There was no evidence of any small bowel injury. The fascial defect was then closed using looped #1 PDS suture. The skin was then closed javier. The patient tolerated well. He was sent to recovery in stable condition.
[2024-08-25] MEDS ORDERED: ONDANSETRON 4 MG/2 ML VIAL IVP PRN (16:18)
[2024-08-25] MEDS ORDERED: NALOXONE 0.4 MG/ML 1 ML VIAL IV PRN (16:18)
[2024-08-25 16:40] LABS: Glucose,Whole Blood 136 mg/dL (70-110)
[2024-08-25] MEDS: KETOROLAC 15 MG/ML 1 ML VIAL IVP SCH (18:14)
[2024-08-25] MEDS: LACTATED RINGERS 1,000 ML IV SCH (18:15)
[2024-08-25] MEDS: PIPERACILLIN-TAZOBACTAM 3.375 GM in SODIUM CHLORIDE 0.9% 100 ML IVPB SCH (18:15)
[2024-08-25 20:18] LABS: Glucose,Whole Blood 204 mg/dL (70-110)
[2024-08-25] MEDS: ATORVASTATIN 40 MG TAB PO SCH (20:53)
[2024-08-26] MEDS: HYDROmorphone 1 MG/ML 1 ML SYRINGE IVP PRN (06:31)
[2024-08-26 07:53] LABS: Glucose,Whole Blood 267 mg/dL (70-110)
[2024-08-26] MEDS: ERGOCALCIFEROL 1,250 MCG (50,000 IU) CAPSULE PO SCH (08:58)
[2024-08-26] MEDS: ENOXAPARIN 30 MG/0.3 ML SYRINGE SQ SCH (08:58)
[2024-08-26] MEDS: amLODIPine 5 MG TAB PO SCH (09:02)
[2024-08-26 09:10] LABS: ALT 9 U/L (8-44); AST 16 U/L (13-35); Albumin 2.7 g/dL (3.8-4.9); Albumin/Globulin Ratio 0.93 Ratio (1.60-3.17); Alkaline Phosphatase 91 U/L (41-126); Blood Urea Nitrogen 66.5 mg/dL (9.0-27.0); Calcium 7.9 mg/dL (8.7-10.3); Carbon Dioxide 15.1 mmol/L (21.6-31.8); Chloride 102 mmol/L (96-109); Globulin 2.9 g/dL (1.6-3.3); Glucose 264 mg/dL (70-110); Potassium 4.8 mmol/L (3.5-5.5); Sodium 135 mmol/L (135-145); Total Bilirubin 0.6 mg/dL (0.3-1.2); Total Protein 5.6 g/dL (6.2-8.2)
--- NOTE | 2024-08-26 10:19 | P.PN ---
Subjective HISTORY OF PRESENT ILLNESS: This is a 59-year-old female with a past medical history significant for hypertension, hyperlipidemia, morbid obesity, chronic kidney disease, hypothyroidism, and diabetes. Patient follows with a advice line rn in [place] that she states that she sees once a year. However she does not know the name. We have been asked to see the patient in consultation for perioperative cardiac management. Patient examined at the bedside. Patient presented to the hospital for chief complaint of abdominal pain. Patient also reports having nausea and vomiting which has since resolved. Patient was found to have incarcerated ve ntral hernia with partial small bowel obstruction. Patient is scheduled to undergo surgical intervention today with general surgery. Patient denies any abdominal pain at the time of examination. She reports she has been passing flatus. She currently denies any chest pain or pressure. She states that she had surgery many years ago due to bowel obstruction and underwent small bowel resection with ventral hernia repair. Additionally as noted the patient was hospitalized in 2019 with small bowel obstruction that resolved with conservative management. She denies any shortness of breath. She states that she is bedbound at baseline. She does have known buttock pressure ulcers. Patient denies any known history of CAD. She believes that she had a stress test within the past few years at her primary advice line rn. DIAGNOSTICS: - EKG reveals sinus mechanism with no signs of acute ischemia. Baseline artifact. - Laboratory data: WBC 7.6. Hemoglobin 8.5. Platelet count 112. Sodium 137. Potassium 3.7. BUN 65. Creatinine 4.96. - Current home cardiac medications include amlodipine 10 mg daily, Lipitor 40 mg at night, carvedilol 12.5 mg twice a day, Lasix 40 mg twice a day - Most recent echocardiogram obtained in November 2023 revealed ejection fraction 55 to 60%, mild to moderate MR, mild TR, mild pulm sudheer regurgitation, small pericardial effusion. Mild LVH. - Cardiac catheterization history: Patient denies 08/26/2024 Patient is status post exploratory laparotomy, lysis of adhesions, excision of intraperitoneal mesh, and repair of incarcerated incisional hernia. Postop day #1. Patient currently denies chest pain or pressure. She denies shortness of breath. Blood pressures are on the lower side with a systolic in the [id number]. PHYSICAL EXAM: VITAL SIGNS: Reviewed. GENERAL: Well-developed in no acute distress. HEENT: Head is normocephalic. Pupils are equal, round. Sclerae anicteric. Mucous membranes of the mouth are moist. Neck supple. No JVD or thyromegaly LUNGS: Respirations even and unlabored. Lungs essentially clear to auscultation bilaterally. HEART: Regular rate and rhythm. S1 and S2 heard. Systolic murmur noted ABDOMEN: Soft. Nondistended. Nontender. EXTREMITIES: Normal range of motion. No clubbing or cyanosis. Peripheral pulses intact. No lower extremity edema NEUROLOGIC: Awake and alert. Oriented x 3. ASSESSMENT: Abdominal pain Small bowel obstruction, status post exploratory laparotomy, lysis of adhesions, excision of intraperitoneal mesh, and repair of incarcerated incisional hernia Chronic kidney disease Hypertension Hyperlipidemia Diabetes History of small bowel obstruction, resolved with conservative management History of small bowel resection and ventral hernia repair Hypothyroidism Morbid obesity: BMI 45.2 PLAN: No need to repeat echocardiogram Continue current cardiac medications Decrease amlodipine to 5 mg daily Continue to monitor blood pressure Further recommendations pending patient course Nurse practitioner note has been reviewed by physician. Signing provider agrees with the documented findings, assessment, and plan of care documented by NEWSPAPER CARRIERS SUPERVISOR as a scribe. Objective - Vital Signs Vital signs: Vital Signs Temp 97.4 F L 08/26/24 01:13 Pulse 66 08/26/24 01:13 Resp 17 08/26/24 01:13 BP 100/64 08/26/24 01:13 Pulse Ox 99 08/25/24 18:39 FiO2 Intake & Output 08/25/24 08/26/24 08/26/24 18:59 06:59 18:59 Intake Total 1750 340 Output Total 740 300 Balance 1010 40 Weight 112.037 kg Intake: IV 1750 Intake, IV Titration 100 Amount Piperacillin-Tazobactam 3 100 .375 gm In Sodium Chloride 0.9% 100 ml @ 25 mls/hr IVPB Q12H [facility] Rx# :[id number] Oral 240 Output: Urine 690 300 Estimated Blood Loss 50 Other: Voiding Method Indwelling Catheter Indwelling Catheter - Labs CBC & Chem 7: 08/25/24 03:09 08/26/24 05:57 Labs: Abnormal Lab Results - Last 24 Hours (Table) 08/25/24 08/25/24 08/25/24 Range/Units 12:09 14:11 16:38 Carbon Dioxide (21.6-31.8) mmol/L Anion Gap (4.00-12.00) mmol/L BUN (9.0-27.0) mg/dL Creatinine (0.6-1.5) mg/dL Est GFR (CKD-EPI) (>=60) Glucose (70-110) mg/dL POC Glucose (mg/dL) 135 H 136 H 136 H (70-110) mg/dL Calcium (8.7-10.3) mg/dL Total Protein (6.2-8.2) g/dL Albumin (3.8-4.9) g/dL Albumin/Globulin Ratio (1.60-3.17) Ratio 08/25/24 08/26/24 08/26/24 Range/Units 20:17 05:57 07:50 Carbon Dioxide 15.1 L (21.6-31.8) mmol/L Anion Gap 17.90 H (4.00-12.00) mmol/L BUN 66.5 H (9.0-27.0) mg/dL Creatinine 5.0 H (0.6-1.5) mg/dL Est GFR (CKD-EPI) 9 L (>=60) Glucose 264 H (70-110) mg/dL POC Glucose (mg/dL) 204 H 267 H (70-110) mg/dL Calcium 7.9 L (8.7-10.3) mg/dL Total Protein 5.6 L (6.2-8.2) g/dL Albumin 2.7 L (3.8-4.9) g/dL Albumin/Globulin Ratio 0.93 L (1.60-3.17) Ratio
--- NOTE | 2024-08-26 10:39 | P.PN ---
Subjective Patient is seen in follow-up for chronic kidney disease. Creatinine stable at 5.0. Nonoliguric. Currently on clear liquid diet. Has Guzman catheter. Vital signs are stable. General: No acute distress. HEENT: Head exam is unremarkable. LUNGS: No audible rhonchi or wheezes. HEART: Rate and Rhythm are regular. ABDOMEN: Nontender. Abdominal binder noted. EXTREMITITES: No edema. Objective - Vital Signs Vital signs: Vital Signs Temp 97.5 F L 08/26/24 08:31 Pulse 69 08/26/24 08:31 Resp 17 08/26/24 08:31 BP 124/68 08/26/24 08:31 Pulse Ox 98 08/26/24 08:31 FiO2 Intake & Output 08/25/24 08/26/24 08/26/24 18:59 06:59 18:59 Intake Total 1750 340 Output Total 740 300 Balance 1010 40 Weight 112.037 kg Intake: IV 1750 Intake, IV Titration 100 Amount Piperacillin-Tazobactam 3 100 .375 gm In Sodium Chloride 0.9% 100 ml @ 25 mls/hr IVPB Q12H [facility] Rx# :[id number] Oral 240 Output: Urine 690 300 Estimated Blood Loss 50 Other: Voiding Method Indwelling Catheter Indwelling Catheter - Labs CBC & Chem 7: 08/25/24 03:09 08/26/24 05:57 Labs: Abnormal Lab Results - Last 24 Hours (Table) 08/25/24 08/25/24 08/25/24 Range/Units 12:09 14:11 16:38 Carbon Dioxide (21.6-31.8) mmol/L Anion Gap (4.00-12.00) mmol/L BUN (9.0-27.0) mg/dL Creatinine (0.6-1.5) mg/dL Est GFR (CKD-EPI) (>=60) Glucose (70-110) mg/dL POC Glucose (mg/dL) 135 H 136 H 136 H (70-110) mg/dL Calcium (8.7-10.3) mg/dL Total Protein (6.2-8.2) g/dL Albumin (3.8-4.9) g/dL Albumin/Globulin Ratio (1.60-3.17) Ratio 08/25/24 08/26/24 08/26/24 Range/Units 20:17 05:57 07:50 Carbon Dioxide 15.1 L (21.6-31.8) mmol/L Anion Gap 17.90 H (4.00-12.00) mmol/L BUN 66.5 H (9.0-27.0) mg/dL Creatinine 5.0 H (0.6-1.5) mg/dL Est GFR (CKD-EPI) 9 L (>=60) Glucose 264 H (70-110) mg/dL POC Glucose (mg/dL) 204 H 267 H (70-110) mg/dL Calcium 7.9 L (8.7-10.3) mg/dL Total Protein 5.6 L (6.2-8.2) g/dL Albumin 2.7 L (3.8-4.9) g/dL Albumin/Globulin Ratio 0.93 L (1.60-3.17) Ratio Assessment and Plan Plan: Assessment: 1. Chronic kidney disease stage V with creatinine 4.1 in July 2024. 5.0 today. Nonoliguric. 2. Diabetes mellitus. 3. Metabolic acidosis secondary to chronic kidney disease and GI losses. On oral bicarb. 4. Anemia of chronic kidney disease. 5. Hypertension with chronic kidney disease. 6. Abdominal pain possibly related to ventral hernia/bowel obstruction. Surgery following. Status post exploratory laparotomy with lysis of adhesions and repair of incarcerated incisional hernia August 25, 2024. 7. Chronic kidney disease mineral bone disease maintained on calcitriol. Plan: Maintain IV fluids. Change to bicarb drip. Continue to hold diuretics. Check iron studies. Continue to monitor renal function and urine output. Continue to assess daily for need for renal placement therapy. Patient is seen vascular surgery outpatient and had vein mapping done. Avoid nephrotoxins. Discontinue NSAIDs. Hold amlodipine for systolic blood pressure less than 120.
[2024-08-26 11:22] LABS: Basophils # (A) 0 X 10*3/uL (0.00-0.10); Basophils % (A) 0 %; Eosinophils # (A) 0 X 10*3/uL (0.04-0.35); Eosinophils % (A) 0 %; HCT 20.9 % (37.2-46.3); HGB 6.3 g/dL (12.0-15.0); Lymphocytes # (A) 0.85 X 10*3/uL (0.90-5.00); Lymphocytes % (A) 10.7 %; MCH 27.5 pg (27.0-32.0); MCHC 30.1 g/dL (32.0-37.0); MCV 91.3 FL (80.0-97.0); Mean Platelet Volume 11.5 FL (9.5-12.2); Monocytes # (A) 0.45 X 10*3/uL (0.20-1.00); Monocytes % (A) 5.7 %; NRBC Per 100 WBC 0 X 10*3/uL (0.00-0.01); Neutrophils # (A) 6.57 X 10*3/uL (1.80-7.70); Neutrophils % (A) 83.1 %; Platelet Count 104 X 10*3/uL (140-440); RBC 2.29 X 10*6/uL (4.10-5.20); RBC Morphology Normal (Normal); RDW 16.3 % (11.5-14.5); WBC 7.91 X 10*3/uL (4.50-10.00)
--- NOTE | 2024-08-26 12:01 | CDI ---
Documentation Clarification Form Date: 08/26/2024 11:41:18 AM From: Arelis Hylton RN CCDS Phone: [phone] Admit Date: 08/23/2024 07:43:00 PM Patient Name: Cristal Ferrer Visit Number: [id number] Discharge Date: ATTENTION: The Clinical Documentation Specialists (CDI) and [facility] Coding Staff appreciate your assistance in clarifying documentation. Please respond to the clarification below the line at the bottom and electronically sign. The CDI & [facility] Coding staff will review the response and follow-up if needed. Please note: Queries are made part of the Legal Health Record. If you have any questions, please contact the author of this message via ITS. Dr: Ori Sarkar Bilateral buttock wounds Documented in Nursing assessment . Additional clarification regarding the stage of the pressure ulcer is requested. History/Risk Factors: 59 year old female presents to the ED with abdominal pain and increased nausea with vomiting. Medical History: CHF, HLD, CKD IV, DM, Hypothyroid, Essential HTN and Morbid Obesity. Clinical Indicators: Location: Deep Tissue Injury Wound description: Warm, Moist, Erythema, and Hyperpigmentation. Treatment: Absorbant under pad checking Q1H, Turn Q2H, Please clarify the stage of pressure ulcer Buttock pressure ulcers, if known: [ + ] Deep tissue injury Bilateral Buttock [ ] Other condition, please specify [ ] Unable to determine Clinical Definitions: Stage 1 Pressure Ulcer: intact skin, non-blanching redness of local area Stage 2 Pressure Ulcer: Partial thickness, loss of dermis, pink wound bed Stage 3 Pressure Ulcer: Full thickness tissue loss Stage 4 Pressure Ulcer: Full thickness tissue loss with exposed bone, tendon, or muscle. Unstageable pressure ulcer: Full thickness tissue loss in which the base of the ulcer is covered by slough (yellow, beth, santos, green or brown) and/or eschar (beth, brown or black) in the wound bed. (Template Last Revised: October 2020) JAMIL
--- NOTE | 2024-08-26 12:06 | CDI ---
Documentation Clarification Form Date: 08/26/2024 11:56:56 AM From: Arelis Hylton RN CCDS Phone: [phone] Admit Date: 08/23/2024 07:43:00 PM Patient Name: Cristal Ferrer Visit Number: [id number] Discharge Date: ATTENTION: The Clinical Documentation Specialists (CDI) and [facility] Coding Staff appreciate your assistance in clarifying documentation. Please respond to the clarification below the line at the bottom and electronically sign. The CDI & [facility] Coding staff will review the response and follow-up if needed. Please note: Queries are made part of the Legal Health Record. If you have any questions, please contact the author of this message via ITS. Dr: Ori Sarkar A left foot pressure ulcer is documented 08/24, Nursing Physical assessment. Additional clarification regarding the stage of the pressure ulcer is requested. History/Risk Factors: 59 year old female presents to the ED with abdominal pain and increased nausea with vomiting. Medical History: CHF, HLD, CKD IV, DM, Hypothyroid, Essential HTN and Morbid Obesity. 08/24, Clinical Indicators: Location: Left foot wound bottom of foot Wound description: scabbed at this time. Warm, dry, rough calloused Treatment: Optifoam Please clarify the stage of pressure ulcer left foot wound, if known: [ ] Deep tissue injury left foot [ ] Stage 1 Pressure Ulcer left foot [ ] Stage 2 Pressure Ulcer left foot [ ] Stage 3 Pressure left foot [ ] Stage 4 Pressure left foot [ ] Unstageable left foot [ ] Other condition, please specify [ + ] Unable to determine Clinical Definitions: Stage 1 Pressure Ulcer: intact skin, non-blanching redness of local area Stage 2 Pressure Ulcer: Partial thickness, loss of dermis, pink wound bed Stage 3 Pressure Ulcer: Full thickness tissue loss Stage 4 Pressure Ulcer: Full thickness tissue loss with exposed bone, tendon, or muscle. Unstageable pressure ulcer: Full thickness tissue loss in which the base of the ulcer is covered by slough (yellow, beth, santos, green or brown) and/or eschar (beth, brown or black) in the wound bed. (Template Last Revised: October 2020) MTDD
[2024-08-26 12:36] LABS: Glucose,Whole Blood 352 mg/dL (70-110)
[2024-08-26] MEDS: INSULIN ASPART (NovoLOG) 100 UNIT/ML VIAL SQ SCH (12:53)
--- NOTE | 2024-08-26 14:49 | P.PN ---
Subjective Progress Note Date: 08/26/24 SURGICAL PROGRESS NOTE CHIEF COMPLAINT: Small bowel obstruction HISTORY OF PRESENT ILLNESS: Patient is postop day #1 status post exploratory laparotomy, lysis of adhesions, excision of intraperitoneal mesh and repair of incarcerated incisional hernia. Her pain is controlled. She has had no flatus. Denies any nausea or vomiting. Urine output adequate. Afebrile. WBC is 7.9 Hgb is 6.3 platelets 104 creatinine 5.0 PHYSICAL EXAM: VITAL SIGNS: Reviewed. GENERAL: Well-developed in no acute distress. HEENT: No sclera icterus. Extraocular movements grossly intact. Moist buccal mucosa. Head is atraumatic, normocephalic. ABDOMEN: Soft. Obese. Nondistended. Ventral hernia palpable. Mild te nderness palpation NEUROLOGIC: Alert and oriented. Cranial nerves II through XII grossly intact. ASSESSMENT: 1. Small bowel obstruction related to incarcerated incisional hernia 2. Anemia PLAN: -Continue clear liquid diet -Agree with blood transfusion -Repeat labs in a.m. -Chronic kidney disease with worsening creatinine. Nephrology following. Physician Hand Drawer In Helper note has been reviewed by physician. Signing provider agrees with the documented findings, assessment, and plan of care. Objective - Vital Signs Vital signs: Vital Signs Temp 98.1 F 08/26/24 13:51 Pulse 68 08/26/24 13:51 Resp 17 08/26/24 13:51 BP 130/67 08/26/24 13:51 Pulse Ox 95 08/26/24 13:51 FiO2 Intake & Output 08/25/24 08/26/24 08/26/24 18:59 06:59 18:59 Intake Total 1750 340 0 Output Total 740 300 Balance 1010 40 0 Weight 112.037 kg Intake: IV 1750 Intake, IV Titration 100 Amount Piperacillin-Tazobactam 3 100 .375 gm In Sodium Chloride 0.9% 100 ml @ 25 mls/hr IVPB Q12H [facility] Rx# :[id number] Oral 240 Blood Product 0 Rc As-1 Unit 0 [id number] Output: Urine 690 300 Estimated Blood Loss 50 Other: Voiding Method Indwelling Catheter Indwelling Catheter Indwelling Catheter - Labs CBC & Chem 7: 08/26/24 05:57 08/26/24 05:57 Labs: Abnormal Lab Results - Last 24 Hours (Table) 08/24/24 08/25/2408/25/25 Range/Units 14:25 16:38 20:17 RBC (4.10-5.20) X 10*6/uL Hgb (12.0-15.0) g/dL Hct (37.2-46.3) % MCHC (32.0-37.0) g/dL RDW (11.5-14.5) % Plt Count (140-440) X 10*3/uL Lymphocytes # (0.90-5.00) X 10*3/uL Eosinophils # (0.04-0.35) X 10*3/uL Carbon Dioxide (21.6-31.8) mmol/L Anion Gap (4.00-12.00) mmol/L BUN (9.0-27.0) mg/dL Creatinine (0.6-1.5) mg/dL Est GFR (CKD-EPI) (>=60) Glucose (70-110) mg/dL POC Glucose (mg/dL) 136 H 204 H (70-110) mg/dL Calcium (8.7-10.3) mg/dL Total Protein (6.2-8.2) g/dL Albumin (3.8-4.9) g/dL Albumin/Globulin Ratio (1.60-3.17) Ratio Crossmatch See Detail 08/26/24 08/26/24 08/26/24 Range/Units 05:57 05:57 07:50 RBC 2.29 L (4.10-5.20) X 10*6/uL Hgb 6.3 A* (12.0-15.0) g/dL Hct 20.9 L (37.2-46.3) % MCHC 30.1 L (32.0-37.0) g/dL RDW 16.3 H (11.5-14.5) % Plt Count 104 L (140-440) X 10*3/uL Lymphocytes # 0.85 L (0.90-5.00) X 10*3/uL Eosinophils # 0 L (0.04-0.35) X 10*3/uL Carbon Dioxide 15.1 L (21.6-31.8) mmol/L Anion Gap 17.90 H (4.00-12.00) mmol/L BUN 66.5 H (9.0-27.0) mg/dL Creatinine 5.0 H (0.6-1.5) mg/dL Est GFR (CKD-EPI) 9 L (>=60) Glucose 264 H (70-110) mg/dL POC Glucose (mg/dL) 267 H (70-110) mg/dL Calcium 7.9 L (8.7-10.3) mg/dL Total Protein 5.6 L (6.2-8.2) g/dL Albumin 2.7 L (3.8-4.9) g/dL Albumin/Globulin Ratio 0.93 L (1.60-3.17) Ratio Crossmatch 08/26/24 Range/Units 12:16 RBC (4.10-5.20) X 10*6/uL Hgb (12.0-15.0) g/dL Hct (37.2-46.3) % MCHC (32.0-37.0) g/dL RDW (11.5-14.5) % Plt Count (140-440) X 10*3/uL Lymphocytes # (0.90-5.00) X 10*3/uL Eosinophils # (0.04-0.35) X 10*3/uL Carbon Dioxide (21.6-31.8) mmol/L Anion Gap (4.00-12.00) mmol/L BUN (9.0-27.0) mg/dL Creatinine (0.6-1.5) mg/dL Est GFR (CKD-EPI) (>=60) Glucose (70-110) mg/dL POC Glucose (mg/dL) 352 H (70-110) mg/dL Calcium (8.7-10.3) mg/dL Total Protein (6.2-8.2) g/dL Albumin (3.8-4.9) g/dL Albumin/Globulin Ratio (1.60-3.17) Ratio Crossmatch
[2024-08-26 15:16] LABS: % Iron Saturation 8.13 (12.00-45.00)
[2024-08-26 17:18] LABS: Glucose,Whole Blood 326 mg/dL (70-110)
--- NOTE | 2024-08-26 19:30 | P.PN ---
Progress Note - Text Progress Note Date: 08/26/24 Chief Complaint: Tired I am covering for Dr. Reilly Moyer was unwell to call me this evening. 59-year-old patient, follows with . Chronic medical conditions include CHF, diabetes, GERD, hypertension, osteoarthritis, bilateral peripheral neuropathy, chronic venous stasis dermatosis. Baseline patient nonambulatory. Lives with her 3 sons. To help her with wheelchair. Patient presents abdominal pain for 1 week. Also increased vomiting. The last vomiting was 3 days ago. Also had some diarrhea. Denied any fever and chills. CT scan has shown from [facility] ventral hernia with herniation of small bowel loops. With some transition point. Plan is for patient to be n.p.o. after midnight for surgical intervention tomorrow. August 25: Patient last nausea vomiting was on Friday that is 4 days ago. Also no bowel movement since Friday. No abdominal pain. Has been passing flatus. N.p.o. except medications. Will do 2 view abdominal x-ray. August 26: Patient yesterday underwent surgery by Dr. Spencer for SBO related to incarcerated incisional hernia. Lysis of additions carried out. Excision of intraperitoneal mesh was done. Followed by repair. Pain is present. Has a binder in place. Clear liquid diet. Hemoglobin dropped to 6.3 this morning. 2 units of blood received. IV bicarbonate for metabolic acidosis from kidney dysfunction. Active Medications Amlodipine Besylate (Amlodipine 5 Mg Tab) 5 mg PO DAILY [facility] Last Admin: 08/26/24 09:02 Dose: 5 mg Atorvastatin Calcium (Atorvastatin 40 Mg Tab) 40 mg PO HS [facility] Last Admin: 08/25/24 20:53 Dose: 40 mg Brimonidine Tartrate (Brimonidine Tartrate 0.2% Drops 5 Ml Btl) 1 drops LEFT EYE BID [facility] Last Admin: 08/26/24 08:59 Dose: 1 drops Bupropion HCl (Bupropion Sr 100 Mg Tablet.Er) 100 mg PO Q48H [facility] Last Admin: 08/25/24 22:29 Dose: 100 mg Buspirone HCl (Buspirone Hcl 5 Mg Tab) 5 mg PO BID [facility] Last Admin: 08/26/24 08:59 Dose: 5 mg Calcitriol (Calcitriol 0.25 Mcg Cap) 0.5 mcg PO Q7D [facility] Last Admin: 08/26/24 08:58 Dose: 0.5 mcg Carvedilol (Carvedilol 12.5 Mg Tab) 12.5 mg PO BID-W/MEALS [facility] Last Admin: 08/26/24 17:47 Dose: 12.5 mg Duloxetine HCl (Duloxetine Hcl 60 Mg Capsule.Dr) 60 mg PO DAILY [facility] Last Admin: 08/26/24 08:58 Dose: 60 mg Enoxaparin Sodium (Enoxaparin 30 Mg/0.3 Ml Syringe) 30 mg SQ DAILY [facility] Last Admin: 08/26/24 08:58 Dose: 30 mg Ergocalciferol (Ergocalciferol 1,250 Mcg (50,000 Iu) Capsule) 2,500 mcg PO Q7D [facility] Last Admin: 08/26/24 08:58 Dose: 2,500 mcg Gabapentin (Gabapentin 100 Mg Cap) 100 mg PO DAILY [facility] Last Admin: 08/26/24 08:58 Dose: 100 mg Hydromorphone HCl (Hydromorphone 1 Mg/Ml 1 Ml Syringe) 1 mg IVP Q4HR PRN PRN Reason: Severe Pain (Scale 7 to 10) Last Admin: 08/26/24 18:14 Dose: 1 mg Piperacillin Sod/Tazobactam (Sod 3.375 gm/ Sodium Chloride) 100 mls @ 25 mls/hr IVPB Q12H [facility]; Protocol Last Admin: 08/26/24 17:56 Dose: 25 mls/hr Sodium Bicarbonate 150 ml/ (Dextrose/Water) 1,150 mls @ 100 mls/hr IV .[id number] [facility] Insulin Aspart (Insulin Aspart (Novolog) 100 Unit/Ml Vial) 0 unit SQ ACHS [facility]; Protocol Last Admin: 08/26/24 17:47 Dose: 12 unit Levothyroxine Sodium (Levothyroxine 100 Mcg Tab) 100 mcg PO DAILY@0630 [facility] Last Admin: 08/26/24 05:31 Dose: 100 mcg Naloxone HCl (Naloxone 0.4 Mg/Ml 1 Ml Vial) 0.2 mg IV Q2M PRN PRN Reason: Opioid Reversal Non-Formulary Medication (Finerenone [Kerendia]) 10 mg PO DAILY [facility] Last Admin: 08/26/24 09:01 Dose: Not Given Nystatin (Nystatin 100,000 Unit/Gm Powd 15 Gm) 1 applic TOPICAL BID [facility]; Protocol Last Admin: 08/26/24 09:02 Dose: 1 applic Ondansetron HCl (Ondansetron 4 Mg/2 Ml Vial) 4 mg IVP Q6HR PRN PRN Reason: Nausea And Vomiting Petrolatum (Zinc Oxide Paste (Z-Guard) 1 Applic) 1 applic TOPICAL Q2HR PRN; Protocol PRN Reason: Wound Healing Sodium Bicarbonate (Sodium Bicarbonate Tab 650 Mg Tab) 650 mg PO BID [facility]DRA Last Admin: 08/26/24 08:58 Dose: 650 mg Social history: Former smoker. 3 sons help her get into a wheelchair. Lives with her 3 sons. Physical examination: VITAL SIGNS: 97.8, 57, 17, 130 x 72, 97% GENERAL: [BMI 45.2, reclining in bed EYES: Pupils equal. Conjunctiva nasima l. HEENT: External appearance of nose and ears normal, oral cavity grossly normal. NECK: JVD unable to assess; masses not palpable. HEART: Heart sounds are distant; no edema. LUNGS: Respiratory rate normal; distant breath sounds. ABDOMEN: Soft, n tender., Abdominal binder pleated PSYCH: Alert and oriented x3; mood and affect tired a l. NEUROLOGICAL: Cranial nerves grossly intact; no facial asymmetry, decreased power l lower extremity. INVESTIGATIONS, reviewed in the clinical context: August 25: White count 7.6 hemoglobin 8.5 potassium 3.7 BUN 65 creatinine 4.96 August 24, 2024: White count 13.7 hemoglobin 8.5 platelets 142 sodium 142 potassium 4.5 BUN [address] scan abdomen pelvis from [facility]: Ventral hernia with herniation of small bowel loops. Mild distention of bowel loops proximal to the hernia may repr esent low-grade small bowel obstruction with transition point at the hernia. Nodular contour of the liver possible cirrhosis. Patchy opacity lung bases possibly atelectasis/infection. Assessment plan: -Acute small bowel obstruction in the ventral hernia of the abdomen.: No diarrhea no abdominal pain no nausea vomiting since Friday. August 25: Dr Spencer repair of small bowel obstruction with incarcerated in the ventral hernia. Removal of mesh. Lysis of additions -Chronic congestive heart failure from diastolic dysfunction EF 55 to 60%. Mild to moderate MR. Follow fluid status Cardiology following -Hyperlipidemia Pravachol -Acute postprocedure blood loss anemia expected from surgery: New diagnosis Patient received 2 units of blood -Chronic kidney disease stage IV secondary diabetic kidney disease. Nephrology following -Diabetes mellitus type 2, chronically on insulin Tresiba 40 units a day. Accu-Cheks with sliding scale insulin -Metabolic acidosis secondary to chronic kidney disease IV bicarbonate -Anemia of chronic kidney disease -Hypothyroid Synthroid 100 mcg a day -Essential hypertension Amlodipine 10 mg a day. Coreg. -Depression Wellbutrin SR, Cymbalta, BuSpar nuclear -Morbid obesity BMI 45.2 Ozempic -Chronic medical debility. Nonambulatory. Does use a wheelchair. Clear liquid diet. Received 2 units of blood. IV bicarbonate. IV Zosyn. Past Medical History Past Medical History: Heart Failure, Diabetes Mellitus, GERD/Reflux, Hypertension, Osteoarthritis (OA), Renal Disease Additional Past Medical History / Comment(s): morbid obesity,HF, Neuropathy bilateral legs Type 2 diabetes mellitus,Chronic venous stasis with dermatosis and pedal edema chronic, enterobacteria and enterococal wound infection 2018 History of Any Multi-Drug Resistant Organisms: Other MDRO Past Surgical History: Adenoidectomy, Section, Cholecystectomy, Hernia Repair, Hysterectomy, Orthopedic Surgery, Tonsillectomy Additional Past Surgical History / Comment(s): carple tunnel sx right hand, Partial small bowel resection with ventral hernia incarceration Past Anesthesia/Blood Transfusion Reactions: No Reported Reaction Past Psychological History: Depression Smoking Status: Former smoker Past Alcohol Use History: None Reported Past Drug Use History: None Reported
[2024-08-26 20:26] LABS: Glucose,Whole Blood 309 mg/dL (70-110)
[2024-08-26] MEDS: DEXTROSE 5% IN WATER 1,000 ML with SODIUM BICARB (1 MEQ/ML) 150 ML IV SCH (20:49)
[2024-08-26] MEDS: ZINC OXIDE PASTE (Z-GUARD) 1 APPLIC TOPICAL PRN (20:54)
[2024-08-27 02:30] LABS: Reticulocyte % 4.75 % (0.10-1.80)
[2024-08-27 03:26] LABS: Rheumatoid Factor, Qnt <15 IU/mL (0-15); Total Iron Binding Capacity 200 UG/DL (228-460)
[2024-08-27 03:28] LABS: Iron 160 UG/DL (50-170)
[2024-08-27 03:51] LABS: Protein, Total 5.3 g/dL (6.2-8.2)
[2024-08-27 07:13] LABS: Anisocytosis Slight; Basophils % (A) 0 %; Eosinophils % (A) 1 %; Hypochromasia Slight; Lymphocytes # (A) 1.4 k/uL (1.0-4.8); Lymphocytes % (A) 18 %; MCH 29.3 pg (25.0-35.0); MCHC 32.6 g/dL (31.0-37.0); MCV 89.8 fL (80.0-100.0); Mean Platelet Volume 8.6; Monocytes # (A) 0.6 k/uL (0-1.0); Monocytes % (A) 7 %; Neutrophils # (A) 5.6 k/uL (1.3-7.7); Neutrophils % (A) 72 %; Platelet Count 100 k/uL (150-450); Poikilocytosis Slight; RBC 2.34 m/uL (3.80-5.40); RDW 16.4 % (11.5-15.5); WBC 7.8 k/uL (3.8-10.6)
[2024-08-27 07:20] LABS: HGB 6.9 gm/dL (11.4-16.0)
[2024-08-27 07:45] LABS: Glucose,Whole Blood 281 mg/dL (70-110)
[2024-08-27 08:53] LABS: BUN/Creat Ratio 13.73 Ratio (12.00-20.00); Calcium 7.9 mg/dL (8.7-10.3); Carbon Dioxide 18.8 mmol/L (21.6-31.8); Chloride 99 mmol/L (96-109); Glucose 232 mg/dL (70-110); Sodium 134 mmol/L (135-145)
[2024-08-27 09:27] LABS: Anisocytosis Slight; Basophils % (A) 0 %; Eosinophils # (A) 0.1 k/uL (0-0.7); Eosinophils % (A) 1 %; HCT 21.2 % (34.0-46.0); Hypochromasia Slight; Lymphocytes # (A) 1.6 k/uL (1.0-4.8); Lymphocytes % (A) 21 %; MCH 29.4 pg (25.0-35.0); MCHC 32.9 g/dL (31.0-37.0); MCV 89.5 fL (80.0-100.0); Monocytes # (A) 0.5 k/uL (0-1.0); Monocytes % (A) 6 %; Neutrophils # (A) 5.5 k/uL (1.3-7.7); Neutrophils % (A) 70 %; Poikilocytosis Slight; RBC 2.37 m/uL (3.80-5.40); RDW 16.3 % (11.5-15.5); WBC 7.8 k/uL (3.8-10.6)
[2024-08-27 09:52] LABS: Platelet Count 92 k/uL (150-450)
--- NOTE | 2024-08-27 10:16 | P.CONS ---
History of Present Illness - Reason for Consult Consult date: 08/27/24 wound care - History of Present Illness This is a 59-year-old patient known to Dr. Mcdonald who does not follow at [facility] wound care center. Patient has a nonhealing ulceration to the left plantar foot the area has callus not attached to the wound bed with significant amount of serous drainage noted granulation seen to the wound bed. Undermining is noted. Patient has been utilizing absorptive silver to the site Patient also has history of DTI no open ulcerations at this time to the left and right buttocks. Patient does utilize zinc cream to the site. Review Of Systems: Constitutional: No fever, no chills, no night sweats. No weight change. No weakness, fatigue or lethargy. No daytime sleepiness. Integumentary:reports wounds, no lesions. No rash or pruritus. No unusual bruising. No change in hair or nails. Physical exam: General Appearance: Alert, cooperative, no distress, appears stated age. Skin: See HPI all other Skin color, texture, tugor normal, no rashes or lesions. Neurologic: Alert oriented x3 Assessment: 1. Nonhealing ulceration with fat layer exposed left foot 2. Stage I pressure ulcer right buttocks 3. Stage I pressure ulcer left buttocks Plan: 1. Apply absorptive silver saline moist gauze And bordered foam to the left plantar tar foot. Change Friday. Apply zinc barrier cream daily to left and right buttocks. Patient to continue following up with Dr. Mcdonald. Thank you for the consultation any questions please contact the wound care center DNP note has been reviewed and discussed with Dr. Freeman and the impression and plan of care has been directed as dictated. Past Medical History Past Medical History: Heart Failure, Diabetes Mellitus, GERD/Reflux, Hypertension, Osteoarthritis (OA), Renal Disease Additional Past Medical History / Comment(s): morbid obesity,HF, Neuropathy bilateral legs Type 2 diabetes mellitus,Chronic venous stasis with dermatosis and pedal edema chronic, enterobacteria and enterococal wound infection 2018 History of Any Multi-Drug Resistant Organisms: Other MDRO Past Surgical History: Adenoidectomy, Section, Cholecystectomy, Hernia Repair, Hysterectomy, Orthopedic Surgery, Tonsillectomy Additional Past Surgical History / Comment(s): carple tunnel sx right hand, Partial small bowel resection with ventral hernia incarceration Past Anesthesia/Blood Transfusion Reactions: No Reported Reaction Past Psychological History: Depression Smoking Status: Former smoker Past Alcohol Use History: None Reported Past Drug Use History: None Reported - Past Family History Mother Family Medical History: Asthma, Myocardial Infarction ([place]) Father Family Medical History: Asthma, Cancer Sister(s) Family Medical History: Asthma, Deep Vein Thrombosis (DVT) Medications and Allergies Home Medications Medication Instructions Recorded Confirmed Type Pravastatin Sodium [Pravachol] 20 mg PO HS 01/29/18 08/23/24 History Insulin Degludec [Tresiba 40 units SQ DAILY 12/26/21 08/23/24 History Flextouch U-200 Pen] Semaglutide [Ozempic] 1 mg SQ Q7DAYS 12/26/21 08/23/24 History DULoxetine HCL [Cymbalta] 60 mg PO DAILY 11/29/23 08/23/24 History Ergocalciferol (Vitamin D2) 2,500 mcg PO Q7D 11/29/23 08/23/24 History [Drisdol (50,000 Iu)] amLODIPine [Norvasc] 10 mg PO DAILY 11/29/23 08/23/24 History busPIRone HCl [Buspar] 5 mg PO BID 11/29/23 08/23/24 History Furosemide [Lasix] 40 mg PO BID #60 tablet 12/02/23 08/23/24 Rx Brimonidine Tartrate [Alphagan P 1 drops LEFT EYE BID 08/23/24 08/23/24 History 0.2% Ophth Soln] Finerenone [Kerendia] 10 mg PO DAILY 08/23/24 08/23/24 History Gabapentin [Neurontin] 100 mg PO DAILY 08/23/24 08/23/24 History Insulin Lispro See Protocol SQ AC-TID 08/23/24 08/23/24 History Levothyroxine Sodium [Synthroid] 100 mcg PO DAILY 08/23/24 08/23/24 History Sodium Bicarbonate Tab 650 mg PO BID 08/23/24 08/23/24 History buPROPion SR [Wellbutrin SR] 100 mg PO Q48H 08/23/24 08/23/24 History calcitrioL 0.5 mcg PO Q7D 08/23/24 08/23/24 History carvediloL [Coreg] 12.5 mg PO BID 08/23/24 08/23/24 History Allergies Allergy/AdvReac Type Severity Reaction Status Date / Time cephalexin monohydrate AdvReac Nausea & Verified 08/25/24 13:15 [From Keflex] Vomiting Physical Exam Vitals: Vital Signs Temp Pulse Pulse Resp BP BP Pulse Ox 08/27/24 06:51 97.5 F L 60 20 118/57 98 08/27/24 01:13 97.5 F L 64 20 103/65 97 08/26/24 19:46 97.0 F L 69 18 103/62 93 L 08/26/24 17:11 97.8 F 57 L 17 130/72 97 08/26/24 13:51 98.1 F 68 17 130/67 95 08/26/24 13:37 98.1 F 63 17 117/65 08/26/24 13:12 97.8 F 70 17 115/67 97 Intake and Output 08/26/24 08/27/24 08/27/24 22:59 06:59 14:59 Intake Total 780 Output Total 200 200 Balance 580 -200 Intake: Oral 780 Blood Product 0 Rc As-1 Unit 0 [id number] Output: Urine 200 200 Other: Voiding Method Indwelling Catheter Results CBC & Chem 7: 08/27/24 08:58 08/27/24 04:29 Labs: Abnormal Lab Results - Last 24 Hours (Table) 08/24/24 08/26/24 08/26/24 Range/Units 14:25 05:57 05:57 RBC 2.29 L (4.10-5.20) X 10*6/uL Hgb 6.3 A* (12.0-15.0) g/dL Hct 20.9 L (37.2-46.3) % MCHC 30.1 L (32.0-37.0) g/dL RDW 16.3 H (11.5-14.5) % Plt Count 104 L (140-440) X 10*3/uL Lymphocytes # 0.85 L (0.90-5.00) X 10*3/uL Eosinophils # 0 L (0.04-0.35) X 10*3/uL Retic Count (0.10-1.80) % Sodium (135-145) mmol/L Carbon Dioxide (21.6-31.8) mmol/L Anion Gap (4.00-12.00) mmol/L BUN (9.0-27.0) mg/dL Creatinine (0.6-1.5) mg/dL Est GFR (CKD-EPI) (>=60) Glucose (70-110) mg/dL POC Glucose (mg/dL) (70-110) mg/dL Calcium (8.7-10.3) mg/dL Iron 17 L (50-170) UG/DL TIBC 209 L (228-460) UG/DL % Saturation 8.13 L (12.00-45.00) Transferrin 149.0 L (204.0-354.0) mg/dL Total Protein (PEP) (6.2-8.2) g/dL Crossmatch See Detail 08/26/24 08/26/24 08/26/24 Range/Units 12:16 17:16 18:35 RBC (4.10-5.20) X 10*6/uL Hgb (12.0-15.0) g/dL Hct (37.2-46.3) % MCHC (32.0-37.0) g/dL RDW (11.5-14.5) % Plt Count (140-440) X 10*3/uL Lymphocytes # (0.90-5.00) X 10*3/uL Eosinophils # (0.04-0.35) X 10*3/uL Retic Count 4.75 H (0.10-1.80) % Sodium (135-145) mmol/L Carbon Dioxide (21.6-31.8) mmol/L Anion Gap (4.00-12.00) mmol/L BUN (9.0-27.0) mg/dL Creatinine (0.6-1.5) mg/dL Est GFR (CKD-EPI) (>=60) Glucose (70-110) mg/dL POC Glucose (mg/dL) 352 H 326 H (70-110) mg/dL Calcium (8.7-10.3) mg/dL Iron (50-170) UG/DL TIBC (228-460) UG/DL % Saturation (12.00-45.00) Transferrin (204.0-354.0) mg/dL Total Protein (PEP) (6.2-8.2) g/dL Crossmatch 08/26/24 08/26/24 08/26/24 Range/Units 18:35 18:35 20:17 RBC (4.10-5.20) X 10*6/uL Hgb (12.0-15.0) g/dL Hct (37.2-46.3) % MCHC (32.0-37.0) g/dL RDW (11.5-14.5) % Plt Count (140-440) X 10*3/uL Lymphocytes # (0.90-5.00) X 10*3/uL Eosinophils # (0.04-0.35) X 10*3/uL Retic Count (0.10-1.80) % Sodium (135-145) mmol/L Carbon Dioxide (21.6-31.8) mmol/L Anion Gap (4.00-12.00) mmol/L BUN (9.0-27.0) mg/dL Creatinine (0.6-1.5) mg/dL Est GFR (CKD-EPI) (>=60) Glucose (70-110) mg/dL POC Glucose (mg/dL) 309 H (70-110) mg/dL Calcium (8.7-10.3) mg/dL Iron (50-170) UG/DL TIBC 200 L (228-460) UG/DL % Saturation 80.00 H (12.00-45.00) Transferrin 143.0 L (204.0-354.0) mg/dL Total Protein (PEP) 5.3 L (6.2-8.2) g/dL Crossmatch 08/27/24 08/27/24 08/27/24 Range/Units 04:29 04:29 07:44 RBC 2.34 L (4.10-5.20) X 10*6/uL Hgb 6.9 L* D (12.0-15.0) g/dL Hct 21.0 L (37.2-46.3) % MCHC (32.0-37.0) g/dL RDW 16.4 H (11.5-14.5) % Plt Count 100 L (140-440) X 10*3/uL Lymphocytes # (0.90-5.00) X 10*3/uL Eosinophils # (0.04-0.35) X 10*3/uL Retic Count (0.10-1.80) % Sodium 134 L (135-145) mmol/L Carbon Dioxide 18.8 L (21.6-31.8) mmol/L Anion Gap 16.20 H (4.00-12.00) mmol/L BUN 70.0 H (9.0-27.0) mg/dL Creatinine 5.1 H (0.6-1.5) mg/dL Est GFR (CKD-EPI) 9 L (>=60) Glucose 232 H (70-110) mg/dL POC Glucose (mg/dL) 281 H (70-110) mg/dL Calcium 7.9 L (8.7-10.3) mg/dL Iron (50-170) UG/DL TIBC (228-460) UG/DL % Saturation (12.00-45.00) Transferrin (204.0-354.0) mg/dL Total Protein (PEP) (6.2-8.2) g/dL Crossmatch 08/27/24 Range/Units 08:58 RBC 2.37 L (4.10-5.20) X 10*6/uL Hgb 7.0 L (12.0-15.0) g/dL Hct 21.2 L (37.2-46.3) % MCHC (32.0-37.0) g/dL RDW 16.3 H (11.5-14.5) % Plt Count 92 L (140-440) X 10*3/uL Lymphocytes # (0.90-5.00) X 10*3/uL Eosinophils # (0.04-0.35) X 10*3/uL Retic Count (0.10-1.80) % Sodium (135-145) mmol/L Carbon Dioxide (21.6-31.8) mmol/L Anion Gap (4.00-12.00) mmol/L BUN (9.0-27.0) mg/dL Creatinine (0.6-1.5) mg/dL Est GFR (CKD-EPI) (>=60) Glucose (70-110) mg/dL POC Glucose (mg/dL) (70-110) mg/dL Calcium (8.7-10.3) mg/dL Iron (50-170) UG/DL TIBC (228-460) UG/DL % Saturation (12.00-45.00) Transferrin (204.0-354.0) mg/dL Total Protein (PEP) (6.2-8.2) g/dL Crossmatch Assessment and Plan (1) Non-pressure chronic ulcer of other part of left foot with fat layer exposed Current Visit: Yes Status: Acute Code(s): L97.522 - NON-PRS CHRONIC ULCER OTH PRT LEFT FOOT W FAT LAYER EXPOSED SNOMED Code(s): 90255943777279444 (2) Pressure injury of left buttock, stage 1 Current Visit: Yes Status: Acute Code(s): L89.321 - PRESSURE ULCER OF LEFT BUTTOCK, STAGE 1 SNOMED Code(s): 05893829855632 (3) Pressure injury of right buttock, stage 1 Current Visit: Yes Status: Acute Code(s): L89.311 - PRESSURE ULCER OF RIGHT BUTTOCK, STAGE 1 SNOMED Code(s): 79325675237070
--- NOTE | 2024-08-27 11:01 | P.PN ---
Subjective Patient is seen in follow-up for chronic kidney disease. Creatinine stable at 5.1. Nonoliguric. Will be advanced to full liquid diet today. Overall feels well. Vital signs are stable. General: No acute distress. HEENT: Head exam is unremarkable. LUNGS: No audible rhonchi or wheezes. HEART: Rate and Rhythm are regular. ABDOMEN: Nontender. Abdominal binder noted. EXTREMITITES: No edema. Objective - Vital Signs Vital signs: Vital Signs Temp 97.5 F L 08/27/24 06:51 Pulse 60 08/27/24 06:51 Resp 20 08/27/24 06:51 BP 118/57 08/27/24 06:51 Pulse Ox 98 08/27/24 06:51 FiO2 Intake & Output 08/26/24 08/27/24 08/27/24 18:59 06:59 18:59 Intake Total 780 Output Total 200 200 Balance 580 -200 Intake: Oral 780 Blood Product 0 Rc As-1 Unit 0 [id number] Output: Urine 200 200 Other: Voiding Method Indwelling Catheter Indwelling Catheter Indwelling Catheter - Labs CBC & Chem 7: 08/27/24 08:58 08/27/24 04:29 Labs: Abnormal Lab Results - Last 24 Hours (Table) 08/24/24 08/26/24 08/26/24 Range/Units 14: 05:57 05:57 RBC 2.29 L (4.10-5.20) X 10*6/uL Hgb 6.3 A* (12.0-15.0) g/dL Hct 20.9 L (37.2-46.3) % MCHC 30.1 L (32.0-37.0) g/dL RDW 16.3 H (11.5-14.5) % Plt Count 104 L (140-440) X 10*3/uL Lymphocytes # 0.85 L (0.90-5.00) X 10*3/uL Eosinophils # 0 L (0.04-0.35) X 10*3/uL Retic Count (0.10-1.80) % Sodium (135-145) mmol/L Carbon Dioxide (21.6-31.8) mmol/L Anion Gap (4.00-12.00) mmol/L BUN (9.0-27.0) mg/dL Creatinine (0.6-1.5) mg/dL Est GFR (CKD-EPI) (>=60) Glucose (70-110) mg/dL POC Glucose (mg/dL) (70-110) mg/dL Calcium (8.7-10.3) mg/dL Iron 17 L (50-170) UG/DL TIBC 209 L (228-460) UG/DL % Saturation 8.13 L (12.00-45.00) Transferrin 149.0 L (204.0-354.0) mg/dL Total Protein (PEP) (6.2-8.2) g/dL Crossmatch See Detail 08/26/24 08/26/24 08/26/24 Range/Units 12:16 17:16 18:35 RBC (4.10-5.20) X 10*6/uL Hgb (12.0-15.0) g/dL Hct (37.2-46.3) % MCHC (32.0-37.0) g/dL RDW (11.5-14.5) % Plt Count (140-440) X 10*3/uL Lymphocytes # (0.90-5.00) X 10*3/uL Eosinophils # (0.04-0.35) X 10*3/uL Retic Count 4.75 H (0.10-1.80) % Sodium (135-145) mmol/L Carbon Dioxide (21.6-31.8) mmol/L Anion Gap (4.00-12.00) mmol/L BUN (9.0-27.0) mg/dL Creatinine (0.6-1.5) mg/dL Est GFR (CKD-EPI) (>=60) Glucose (70-110) mg/dL POC Glucose (mg/dL) 352 H 326 H (70-110) mg/dL Calcium (8.7-10.3) mg/dL Iron (50-170) UG/DL TIBC (228-460) UG/DL % Saturation (12.00-45.00) Transferrin (204.0-354.0) mg/dL Total Protein (PEP) (6.2-8.2) g/dL Crossmatch 08/26/24 08/26/24 08/26/24 Range/Units 18:35 18:35 20:17 RBC (4.10-5.20) X 10*6/uL Hgb (12.0-15.0) g/dL Hct (37.2-46.3) % MCHC (32.0-37.0) g/dL RDW (11.5-14.5) % Plt Count (140-440) X 10*3/uL Lymphocytes # (0.90-5.00) X 10*3/uL Eosinophils # (0.04-0.35) X 10*3/uL Retic Count (0.10-1.80) % Sodium (135-145) mmol/L Carbon Dioxide (21.6-31.8) mmol/L Anion Gap (4.00-12.00) mmol/L BUN (9.0-27.0) mg/dL Creatinine (0.6-1.5) mg/dL Est GFR (CKD-EPI) (>=60) Glucose (70-110) mg/dL POC Glucose (mg/dL) 309 H (70-110) mg/dL Calcium (8.7-10.3) mg/dL Iron (50-170) UG/DL TIBC 200 L (228-460) UG/DL % Saturation 80.00 H (12.00-45.00) Transferrin 143.0 L (204.0-354.0) mg/dL Total Protein (PEP) 5.3 L (6.2-8.2) g/dL Crossmatch 08/27/24 08/27/24 08/27/24 Range/Units 04:29 04:29 07:44 RBC 2.34 L (4.10-5.20) X 10*6/uL Hgb 6.9 L* D (12.0-15.0) g/dL Hct 21.0 L (37.2-46.3) % MCHC (32.0-37.0) g/dL RDW 16.4 H (11.5-14.5) % Plt Count 100 L (140-440) X 10*3/uL Lymphocytes # (0.90-5.00) X 10*3/uL Eosinophils # (0.04-0.35) X 10*3/uL Retic Count (0.10-1.80) % Sodium 134 L (135-145) mmol/L Carbon Dioxide 18.8 L (21.6-31.8) mmol/L Anion Gap 16.20 H (4.00-12.00) mmol/L BUN 70.0 H (9.0-27.0) mg/dL Creatinine 5.1 H (0.6-1.5) mg/dL Est GFR (CKD-EPI) 9 L (>=60) Glucose 232 H (70-110) mg/dL POC Glucose (mg/dL) 281 H (70-110) mg/dL Calcium 7.9 L (8.7-10.3) mg/dL Iron (50-170) UG/DL TIBC (228-460) UG/DL % Saturation (12.00-45.00) Transferrin (204.0-354.0) mg/dL Total Protein (PEP) (6.2-8.2) g/dL Crossmatch 08/27/24 Range/Units 08:58 RBC 2.37 L (4.10-5.20) X 10*6/uL Hgb 7.0 L (12.0-15.0) g/dL Hct 21.2 L (37.2-46.3) % MCHC (32.0-37.0) g/dL RDW 16.3 H (11.5-14.5) % Plt Count 92 L (140-440) X 10*3/uL Lymphocytes # (0.90-5.00) X 10*3/uL Eosinophils # (0.04-0.35) X 10*3/uL Retic Count (0.10-1.80) % Sodium (135-145) mmol/L Carbon Dioxide (21.6-31.8) mmol/L Anion Gap (4.00-12.00) mmol/L BUN (9.0-27.0) mg/dL Creatinine (0.6-1.5) mg/dL Est GFR (CKD-EPI) (>=60) Glucose (70-110) mg/dL POC Glucose (mg/dL) (70-110) mg/dL Calcium (8.7-10.3) mg/dL Iron (50-170) UG/DL TIBC (228-460) UG/DL % Saturation (12.00-45.00) Transferrin (204.0-354.0) mg/dL Total Protein (PEP) (6.2-8.2) g/dL Crossmatch Assessment and Plan Plan: Assessment: 1. Chronic kidney disease stage V with creatinine 4.1 in July 2024. 5.1 today. Nonoliguric. 2. Diabetes mellitus. 3. Metabolic acidosis secondary to chronic kidney disease and GI losses. On oral bicarb and bicarb drip. Better. 4. Anemia of chronic kidney disease. Iron replete. Received blood this admission. 5. Hypertension with chronic kidney disease. Stable. 6. Abdominal pain possibly related to ventral hernia/bowel obstruction. Surgery following. Status post exploratory laparotomy with lysis of adhesions and repair of incarcerated incisional hernia August 25, 2024. 7. Chronic kidney disease mineral bone disease maintained on calcitriol. Plan: Maintain bicarb drip. Continue to hold diuretics. Add Aranesp. Continue to monitor renal function and urine output. Continue to assess daily for need for renal placement therapy. Will start if patient agreeable. Patient is seen vascular surgery outpatient and had vein mapping done. Avoid nephrotoxins. Discontinue NSAIDs. Hold amlodipine for systolic blood pressure less than 120. Voiding trial today.
--- NOTE | 2024-08-27 11:02 | P.PN ---
Subjective HISTORY OF PRESENT ILLNESS: This is a 59-year-old female with a past medical history significant for hypertension, hyperlipidemia, morbid obesity, chronic kidney disease, hypothyroidism, and diabetes. Patient follows with a seed and fertilizer specialist in [place] that she states that she sees once a year. However she does not know the name. We have been asked to see the patient in consultation for perioperative cardiac management. Patient examined at the bedside. Patient presented to the hospital for chief complaint of abdominal pain. Patient also reports having nausea and vomiting which has since resolved. Patient was found to have incarcerated ve ntral hernia with partial small bowel obstruction. Patient is scheduled to undergo surgical intervention today with general surgery. Patient denies any abdominal pain at the time of examination. She reports she has been passing flatus. She currently denies any chest pain or pressure. She states that she had surgery many years ago due to bowel obstruction and underwent small bowel resection with ventral hernia repair. Additionally as noted the patient was hospitalized in 2019 with small bowel obstruction that resolved with conservative management. She denies any shortness of breath. She states that she is bedbound at baseline. She does have known buttock pressure ulcers. Patient denies any known history of CAD. She believes that she had a stress test within the past few years at her primary seed and fertilizer specialist. DIAGNOSTICS: - EKG reveals sinus mechanism with no signs of acute ischemia. Baseline artifact. - Laboratory data: WBC 7.6. Hemoglobin 8.5. Platelet count 112. Sodium 137. Potassium 3.7. BUN 65. Creatinine 4.96. - Current home cardiac medications include amlodipine 10 mg daily, Lipitor 40 mg at night, carvedilol 12.5 mg twice a day, Lasix 40 mg twice a day - Most recent echocardiogram obtained in November 2023 revealed ejection fraction 55 to 60%, mild to moderate MR, mild TR, mild pulm sudheer regurgitation, small pericardial effusion. Mild LVH. - Cardiac catheterization history: Patient denies 08/26/2024 Patient is status post exploratory laparotomy, lysis of adhesions, excision of intraperitoneal mesh, and repair of incarcerated incisional hernia. Postop day #1. Patient currently denies chest pain or pressure. She denies shortness of breath. Blood pressures are on the lower side with a systolic in the [id number]. 08/27/2024 Patient examined this morning at the bedside. Patient currently denies chest pain or pressure. She denies shortness of breath. She is tolerating oral diet. Vital signs have been stable. Blood pressure 118/57. Hemoglobin today 6.9. PHYSICAL EXAM: VITAL SIGNS: Reviewed. GENERAL: Well-developed in no acute distress. HEENT: Head is normocephalic. Pupils are equal, round. Sclerae anicteric. Mucous membranes of the mouth are moist. Neck supple. No JVD or thyromegaly LUNGS: Respirations even and unlabored. Lungs essentially clear to auscultation bilaterally. HEART: Regular rate and rhythm. S1 and S2 heard. Systolic murmur noted ABDOMEN: Soft. Nondistended. Nontender. EXTREMITIES: Normal range of motion. No clubbing or cyanosis. Peripheral pulses intact. No lower extremity edema NEUROLOGIC: Awake and alert. Oriented x 3. ASSESSMENT: Abdominal pain Small bowel obstruction, status post exploratory laparotomy, lysis of adhesions, excision of intraperitoneal mesh, and repair of incarcerated incisional hernia Chronic kidney disease Hypertension Hyperlipidemia Diabetes History of small bowel obstruction, resolved with conservative management History of small bowel resection and ventral hernia repair Hypothyroidism Morbid obesity: BMI 45.2 Anemia PLAN: No need to repeat echocardiogram Continue current cardiac medications Continue to monitor blood pressure Primary medicine to address anemia Patient is currently stable from a cardiac standpoint with no further inpatient recommendations We will sign off. Please reconsult if needed. Nurse practitioner note has been reviewed by physician. Signing provider agrees with the documented findings, assessment, and plan of care documented by REVENUE ANALYST as a scribe. Objective - Vital Signs Vital signs: Vital Signs Temp 97.5 F L 08/27/24 06:51 Pulse 60 08/27/24 06:51 Resp 20 08/27/24 06:51 BP 118/57 08/27/24 06:51 Pulse Ox 98 08/27/24 06:51 FiO2 Intake & Output 08/26/24 08/27/24 08/27/24 18:59 06:59 18:59 Intake Total 780 Output Total 200 200 Balance 580 -200 Intake: Oral 780 Blood Product 0 Rc As-1 Unit 0 [id number] Output: Urine 200 200 Other: Voiding Method Indwelling Catheter Indwelling Catheter Indwelling Catheter - Labs CBC & Chem 7: 08/27/24 08:58 08/27/24 04:29 Labs: Abnormal Lab Results - Last 24 Hours (Table) 01/08/26/24 08/26/24 Range/Units 14:25 05:57 05:57 RBC 2.29 L (4.10-5.20) X 10*6/uL Hgb 6.3 A* (12.0-15.0) g/dL Hct 20.9 L (37.2-46.3) % MCHC 30.1 L (32.0-37.0) g/dL RDW 16.3 H (11.5-14.5) % Plt Count 104 L (140-440) X 10*3/uL Lymphocytes # 0.85 L (0.90-5.00) X 10*3/uL Eosinophils # 0 L (0.04-0.35) X 10*3/uL Retic Count (0.10-1.80) % Sodium (135-145) mmol/L Carbon Dioxide (21.6-31.8) mmol/L Anion Gap (4.00-12.00) mmol/L BUN (9.0-27.0) mg/dL Creatinine (0.6-1.5) mg/dL Est GFR (CKD-EPI) (>=60) Glucose (70-110) mg/dL POC Glucose (mg/dL) (70-110) mg/dL Calcium (8.7-10.3) mg/dL Iron 17 L (50-170) UG/DL TIBC 209 L (228-460) UG/DL % Saturation 8.13 L (12.00-45.00) Transferrin 149.0 L (204.0-354.0) mg/dL Total Protein (PEP) (6.2-8.2) g/dL Crossmatch See Detail 08/26/24 08/26/24 08/26/24 Range/Units 12:16 17:16 18:35 RBC (4.10-5.20) X 10*6/uL Hgb (12.0-15.0) g/dL Hct (37.2-46.3) % MCHC (32.0-37.0) g/dL RDW (11.5-14.5) % Plt Count (140-440) X 10*3/uL Lymphocytes # (0.90-5.00) X 10*3/uL Eosinophils # (0.04-0.35) X 10*3/uL Retic Count 4.75 H (0.10-1.80) % Sodium (135-145) mmol/L Carbon Dioxide (21.6-31.8) mmol/L Anion Gap (4.00-12.00) mmol/L BUN (9.0-27.0) mg/dL Creatinine (0.6-1.5) mg/dL Est GFR (CKD-EPI) (>=60) Glucose (70-110) mg/dL POC Glucose (mg/dL) 352 H 326 H (70-110) mg/dL Calcium (8.7-10.3) mg/dL Iron (50-170) UG/DL TIBC (228-460) UG/DL % Saturation (12.00-45.00) Transferrin (204.0-354.0) mg/dL Total Protein (PEP) (6.2-8.2) g/dL Crossmatch 08/26/24 08/26/24 08/26/24 Range/Units 18:35 18:35 20:17 RBC (4.10-5.20) X 10*6/uL Hgb (12.0-15.0) g/dL Hct (37.2-46.3) % MCHC (32.0-37.0) g/dL RDW (11.5-14.5) % Plt Count (140-440) X 10*3/uL Lymphocytes # (0.90-5.00) X 10*3/uL Eosinophils # (0.04-0.35) X 10*3/uL Retic Count (0.10-1.80) % Sodium (135-145) mmol/L Carbon Dioxide (21.6-31.8) mmol/L Anion Gap (4.00-12.00) mmol/L BUN (9.0-27.0) mg/dL Creatinine (0.6-1.5) mg/dL Est GFR (CKD-EPI) (>=60) Glucose (70-110) mg/dL POC Glucose (mg/dL) 309 H (70-110) mg/dL Calcium (8.7-10.3) mg/dL Iron (50-170) UG/DL TIBC 200 L (228-460) UG/DL % Saturation 80.00 H (12.00-45.00) Transferrin 143.0 L (204.0-354.0) mg/dL Total Protein (PEP) 5.3 L (6.2-8.2) g/dL Crossmatch 08/27/24 08/27/24 08/27/24 Range/Units 04:29 04:29 07:44 RBC 2.34 L (4.10-5.20) X 10*6/uL Hgb 6.9 L* D (12.0-15.0) g/dL Hct 21.0 L (37.2-46.3) % MCHC (32.0-37.0) g/dL RDW 16.4 H (11.5-14.5) % Plt Count 100 L (140-440) X 10*3/uL Lymphocytes # (0.90-5.00) X 10*3/uL Eosinophils # (0.04-0.35) X 10*3/uL Retic Count (0.10-1.80) % Sodium 134 L (135-145) mmol/L Carbon Dioxide 18.8 L (21.6-31.8) mmol/L Anion Gap 16.20 H (4.00-12.00) mmol/L BUN 70.0 H (9.0-27.0) mg/dL Creatinine 5.1 H (0.6-1.5) mg/dL Est GFR (CKD-EPI) 9 L (>=60) Glucose 232 H (70-110) mg/dL POC Glucose (mg/dL) 281 H (70-110) mg/dL Calcium 7.9 L (8.7-10.3) mg/dL Iron (50-170) UG/DL TIBC (228-460) UG/DL % Saturation (12.00-45.00) Transferrin (204.0-354.0) mg/dL Total Protein (PEP) (6.2-8.2) g/dL Crossmatch 08/27/24 Range/Units 08:58 RBC 2.37 L (4.10-5.20) X 10*6/uL Hgb 7.0 L (12.0-15.0) g/dL Hct 21.2 L (37.2-46.3) % MCHC (32.0-37.0) g/dL RDW 16.3 H (11.5-14.5) % Plt Count 92 L (140-440) X 10*3/uL Lymphocytes # (0.90-5.00) X 10*3/uL Eosinophils # (0.04-0.35) X 10*3/uL Retic Count (0.10-1.80) % Sodium (135-145) mmol/L Carbon Dioxide (21.6-31.8) mmol/L Anion Gap (4.00-12.00) mmol/L BUN (9.0-27.0) mg/dL Creatinine (0.6-1.5) mg/dL Est GFR (CKD-EPI) (>=60) Glucose (70-110) mg/dL POC Glucose (mg/dL) (70-110) mg/dL Calcium (8.7-10.3) mg/dL Iron (50-170) UG/DL TIBC (228-460) UG/DL % Saturation (12.00-45.00) Transferrin (204.0-354.0) mg/dL Total Protein (PEP) (6.2-8.2) g/dL Crossmatch
[2024-08-27 12:04] LABS: Glucose,Whole Blood 333 mg/dL (70-110)
[2024-08-27] MEDS ORDERED: ACETAMINOPHEN TAB 325 MG TAB PO PRN (12:54)
--- NOTE | 2024-08-27 12:54 | P.PN ---
Subjective Progress Note Date: 08/27/24 SURGICAL PROGRESS NOTE CHIEF COMPLAINT: Small bowel obstruction HISTORY OF PRESENT ILLNESS: Patient is postop day #2 status post exploratory laparotomy, lysis of adhesions, excision of intraperitoneal mesh and repair of incarcerated incisional hernia. Her pain is controlled. Patient is having flatus. She is sitting up in bed comfortably. Denies any nausea or vomiting. She is tolerating clear liquids. Afebrile. Patient is status post 1 unit of blood yesterday. Hemoglobin is about the same from 6.9-7.0. Hematology service on consult for patient's anemia. Nephrology has added Aranesp. Patient seen and examined with Dr. Spencer PHYSICAL EXAM: VITAL SIGNS: Reviewed. GENERAL: Well-developed in no acute distress. ABDOMEN: Soft. Obese. Nondistended. NEUROLOGIC: Alert and oriented. Cranial nerves II through XII grossly intact. ASSESSMENT: 1. Small bowel obstruction related to incarcerated incisional hernia 2. Anemia 3. Chronic kidney disease PLAN: -Advance diet to full liquids and then advance as tolerated -Add [place] and Tylenol as needed for oral pain management -Nephrology following patient and evaluating for possible renal replacement -Repeat labs in a.m. Physician Closing Specialist note has been reviewed by physician. Signing provider agrees with the documented findings, assessment, and plan of care. Objective - Vital Signs Vital signs: Vital Signs Temp 97.5 F L 08/27/24 12:30 Pulse 60 08/27/24 12:30 Resp 20 08/27/24 12:30 BP 145/61 08/27/24 12:30 Pulse Ox 99 08/27/24 12:30 FiO2 Intake & Output 08/26/24 08/27/24 08/27/24 18:59 06:59 18:59 Intake Total 780 Output Total 200 200 Balance 580 -200 Intake: Oral 780 Blood Product 0 Rc As-1 Unit 0 [id number] Output: Urine 200 200 Other: Voiding Method Indwelling Catheter Indwelling Catheter Indwelling Catheter - Labs CBC & Chem 7: 08/27/24 08:58 08/27/24 04:29 Labs: Abnormal Lab Results - Last 24 Hours (Table) 08/24/24 08/26/24 08/26/24 Range/Units 14:25 05:57 17:16 RBC (3.80-5.40) m/uL Hgb (11.4-16.0) gm/dL Hct (34.0-46.0) % RDW (11.5-15.5) % Plt Count (150-450) k/uL Retic Count (0.10-1.80) % Sodium (135-145) mmol/L Carbon Dioxide (21.6-31.8) mmol/L Anion Gap (4.00-12.00) mmol/L BUN (9.0-27.0) mg/dL Creatinine (0.6-1.5) mg/dL Est GFR (CKD-EPI) (>=60) Glucose (70-110) mg/dL POC Glucose (mg/dL) 326 H (70-110) mg/dL Calcium (8.7-10.3) mg/dL Iron 17 L (50-170) UG/DL TIBC 209 L (228-460) UG/DL % Saturation 8.13 L (12.00-45.00) Transferrin 149.0 L (204.0-354.0) mg/dL Erythropoietin (2.00-30.00) mIU/mL Total Protein (PEP) (6.2-8.2) g/dL Crossmatch See Detail 08/26/24 08/26/24 08/26/24 Range/Units 18:35 18:35 18:35 RBC (3.80-5.40) m/uL Hgb (11.4-16.0) gm/dL Hct (34.0-46.0) % RDW (11.5-15.5) % Plt Count (150-450) k/uL Retic Count 4.75 H (0.10-1.80) % Sodium (135-145) mmol/L Carbon Dioxide (21.6-31.8) mmol/L Anion Gap (4.00-12.00) mmol/L BUN (9.0-27.0) mg/dL Creatinine (0.6-1.5) mg/dL Est GFR (CKD-EPI) (>=60) Glucose (70-110) mg/dL POC Glucose (mg/dL) (70-110) mg/dL Calcium (8.7-10.3) mg/dL Iron (50-170) UG/DL TIBC 200 L (228-460) UG/DL % Saturation 80.00 H (12.00-45.00) Transferrin 143.0 L (204.0-354.0) mg/dL Erythropoietin 618.37 H (2.00-30.00) mIU/mL Total Protein (PEP) (6.2-8.2) g/dL Crossmatch 08/26/24 08/26/24 08/27/24 Range/Units 18:35 20:17 04:29 RBC (3.80-5.40) m/uL Hgb (11.4-16.0) gm/dL Hct (34.0-46.0) % RDW (11.5-15.5) % Plt Count (150-450) k/uL Retic Count (0.10-1.80) % Sodium 134 L (135-145) mmol/L Carbon Dioxide 18.8 L (21.6-31.8) mmol/L Anion Gap 16.20 H (4.00-12.00) mmol/L BUN 70.0 H (9.0-27.0) mg/dL Creatinine 5.1 H (0.6-1.5) mg/dL Est GFR (CKD-EPI) 9 L (>=60) Glucose 232 H (70-110) mg/dL POC Glucose (mg/dL) 309 H (70-110) mg/dL Calcium 7.9 L (8.7-10.3) mg/dL Iron (50-170) UG/DL TIBC (228-460) UG/DL % Saturation (12.00-45.00) Transferrin (204.0-354.0) mg/dL Erythropoietin (2.00-30.00) mIU/mL Total Protein (PEP) 5.3 L (6.2-8.2) g/dL Crossmatch 08/27/24 08/27/24 08/27/24 Range/Units 04:29 07:44 08:58 RBC 2.34 L 2.37 L (3.80-5.40) m/uL Hgb 6.9 L* D 7.0 L (11.4-16.0) gm/dL Hct 21.0 L 21.2 L (34.0-46.0) % RDW 16.4 H 16.3 H (11.5-15.5) % Plt Count 100 L 92 L (150-450) k/uL Retic Count (0.10-1.80) % Sodium (135-145) mmol/L Carbon Dioxide (21.6-31.8) mmol/L Anion Gap (4.00-12.00) mmol/L BUN (9.0-27.0) mg/dL Creatinine (0.6-1.5) mg/dL Est GFR (CKD-EPI) (>=60) Glucose (70-110) mg/dL POC Glucose (mg/dL) 281 H (70-110) mg/dL Calcium (8.7-10.3) mg/dL Iron (50-170) UG/DL TIBC (228-460) UG/DL % Saturation (12.00-45.00) Transferrin (204.0-354.0) mg/dL Erythropoietin (2.00-30.00) mIU/mL Total Protein (PEP) (6.2-8.2) g/dL Crossmatch 08/27/24 Range/Units 12:03 RBC (3.80-5.40) m/uL Hgb (11.4-16.0) gm/dL Hct (34.0-46.0) % RDW (11.5-15.5) % Plt Count (150-450) k/uL Retic Count (0.10-1.80) % Sodium (135-145) mmol/L Carbon Dioxide (21.6-31.8) mmol/L Anion Gap (4.00-12.00) mmol/L BUN (9.0-27.0) mg/dL Creatinine (0.6-1.5) mg/dL Est GFR (CKD-EPI) (>=60) Glucose (70-110) mg/dL POC Glucose (mg/dL) 333 H (70-110) mg/dL Calcium (8.7-10.3) mg/dL Iron (50-170) UG/DL TIBC (228-460) UG/DL % Saturation (12.00-45.00) Transferrin (204.0-354.0) mg/dL Erythropoietin (2.00-30.00) mIU/mL Total Protein (PEP) (6.2-8.2) g/dL Crossmatch
[2024-08-27] MEDS: ZINC OXIDE PASTE (Z-GUARD) 1 APPLIC TOPICAL SCH (13:35)
[2024-08-27] MEDS: DARBEPOETIN ALFA 40 MCG/0.4 ML SYRINGE SQ SCH (13:35)
[2024-08-27 17:15] LABS: Glucose,Whole Blood 346 mg/dL (70-110)
--- NOTE | 2024-08-27 17:53 | P.PN ---
Progress Note - Text Progress Note Date: 08/27/24 Chief Complaint: Tired I am covering for Dr. Reilly Moyer was unwell to call me this evening. 59-year-old patient, follows with . Chronic medical conditions include CHF, diabetes, GERD, hypertension, osteoarthritis, bilateral peripheral neuropathy, chronic venous stasis dermatosis. Baseline patient nonambulatory. Lives with her 3 sons. To help her with wheelchair. Patient presents abdominal pain for 1 week. Also increased vomiting. The last vomiting was 3 days ago. Also had some diarrhea. Denied any fever and chills. CT scan has shown from [place] ventral hernia with herniation of small bowel loops. With some transition point. Plan is for patient to be n.p.o. after midnight for surgical intervention tomorrow. August 25: Patient last nausea vomiting was on Friday that is 4 days ago. Also no bowel movement since Friday. No abdominal pain. Has been passing flatus. N.p.o. except medications. Will do 2 view abdominal x-ray. August 26: Patient yesterday underwent surgery by Dr. Spencer for SBO related to incarcerated incisional hernia. Lysis of additions carried out. Excision of intraperitoneal mesh was done. Followed by repair. Pain is present. Has a binder in place. Clear liquid diet. Hemoglobin dropped to 6.3 this morning. 2 units of blood received. IV bicarbonate for metabolic acidosis from kidney dysfunction. August 27: Saw the patient this morning. Liquid diet. Passing gas.'s abdominal pain. Resting in bed. No nausea vomiting.. Hemoglobin 6.9-7.0. Some of patient's blood pressure medication not resumed. Given that we will transfuse 1 more unit of blood.. Active Medications Acetaminophen (Acetaminophen Tab 325 Mg Tab) 650 mg PO Q6HR PRN PRN Reason: Fever and/ or Mild Pain Hydrocodone Bitart/Acetaminophen (Hydrocodone/Apap 5-325mg 1 Each Tab) 1 each PO Q4HR PRN PRN Reason: Moderate Pain (Scale 4 to 6) Amlodipine Besylate (Amlodipine 5 Mg Tab) 5 mg PO DAILY [facility] Last Admin: 08/27/24 08:13 Dose: 5 mg Atorvastatin Calcium (Atorvastatin 40 Mg Tab) 40 mg PO HS [facility] Last Admin: 08/26/24 20:49 Dose: 40 mg Brimonidine Tartrate (Brimonidine Tartrate 0.2% Drops 5 Ml Btl) 1 drops LEFT EYE BID [facility] Last Admin: 08/27/24 08:14 Dose: 1 drops Bupropion HCl (Bupropion Sr 100 Mg Tablet.Er) 100 mg PO Q48H [facility] Last Admin: 08/25/24 22:29 Dose: 100 mg Buspirone HCl (Buspirone Hcl 5 Mg Tab) 5 mg PO BID [facility] Last Admin: 08/27/24 08:13 Dose: 5 mg Calcitriol (Calcitriol 0.25 Mcg Cap) 0.5 mcg PO Q7D [facility] Last Admin: 08/26/24 08:58 Dose: 0.5 mcg Carvedilol (Carvedilol 12.5 Mg Tab) 12.5 mg PO BID-W/MEALS [facility] Last Admin: 08/27/24 08:13 Dose: 12.5 mg Darbepoetin Ld (Darbepoetin Ld 40 Mcg/0.4 Ml Syringe) 40 mcg SQ Q7D [facility] Last Admin: 08/27/24 13:35 Dose: 40 mcg Duloxetine HCl (Duloxetine Hcl 60 Mg Capsule.Dr) 60 mg PO DAILY [facility] Last Admin: 08/27/24 08:13 Dose: 60 mg Enoxaparin Sodium (Enoxaparin 30 Mg/0.3 Ml Syringe) 30 mg SQ DAILY [facility] Last Admin: 08/27/24 08:13 Dose: 30 mg Ergocalciferol (Ergocalciferol 1,250 Mcg (50,000 Iu) Capsule) 2,500 mcg PO Q7D [facility] Last Admin: 08/26/24 08:58 Dose: 2,500 mcg Gabapentin (Gabapentin 100 Mg Cap) 100 mg PO DAILY [facility] Last Admin: 08/27/24 08:13 Dose: 100 mg Hydromorphone HCl (Hydromorphone 1 Mg/Ml 1 Ml Syringe) 1 mg IVP Q4HR PRN PRN Reason: Severe Pain (Scale 7 to 10) Last Admin: 08/26/24 18:14 Dose: 1 mg Piperacillin Sod/Tazobactam (Sod 3.375 gm/ Sodium Chloride) 100 mls @ 25 mls/hr IVPB Q12H [facility]; Protocol Last Admin: 08/27/24 05:43 Dose: 25 mls/hr Sodium Bicarbonate 150 ml/ (Dextrose/Water) 1,150 mls @ 100 mls/hr IV .[id number] [facility] Last Admin: 08/27/24 08:12 Dose: 100 mls/hr Insulin Aspart (Insulin Aspart (Novolog) 100 Unit/Ml Vial) 0 unit SQ ACHS [facility]; Protocol Last Admin: 08/27/24 13:35 Dose: 16 unit Levothyroxine Sodium (Levothyroxine 100 Mcg Tab) 100 mcg PO DAILY@0630 [facility] Last Admin: 08/27/24 05:43 Dose: 100 mcg Naloxone HCl (Naloxone 0.4 Mg/Ml 1 Ml Vial) 0.2 mg IV Q2M PRN PRN Reason: Opioid Reversal Non-Formulary Medication (Finerenone [Kerendia]) 10 mg PO DAILY [facility] Last Admin: 08/27/24 08:16 Dose: Not Given Nystatin (Nystatin 100,000 Unit/Gm Powd 15 Gm) 1 applic TOPICAL BID [facility]; Protocol Last Admin: 08/27/24 08:16 Dose: 1 applic Ondansetron HCl (Ondansetron 4 Mg/2 Ml Vial) 4 mg IVP Q6HR PRN PRN Reason: Nausea And Vomiting Petrolatum (Zinc Oxide Paste (Z-Guard) 1 Applic) 1 applic TOPICAL Q2HR PRN; Protocol PRN Reason: Wound Healing Last Admin: 08/26/24 20:54 Dose: 1 applic Petrolatum (Zinc Oxide Paste (Z-Guard) 1 Applic) 1 applic TOPICAL DAILY [facility]; Protocol Last Admin: 08/27/24 13:35 Dose: 1 applic Sodium Bicarbonate (Sodium Bicarbonate Tab 650 Mg Tab) 650 mg PO BID [facility] Last Admin: 08/27/24 08:13 Dose: 650 mg Social history: Former smoker. 3 sons help her get into a wheelchair. Lives with her 3 sons. Physical examination: VITAL SIGNS:97.5, 60, 16, 110 x 65, 97% room air GENERAL: [BMI 45.2, reclining in bed EYES: Pupils equal. Conjunctiva nasima l. HEENT: External appearance of nose and ears normal, oral cavity grossly normal. NECK: JVD unable to assess; masses not palpable. HEART: Heart sounds are distant; no edema. LUNGS: Respiratory rate normal; distant breath sounds. ABDOMEN: Soft, dressing over incision., Abdominal binder pleated PSYCH: Alert and oriented x3; mood and affect tired a l. NEUROLOGICAL: Cranial nerves grossly intact; no facial asymmetry, decreased power l lower extremity. INVESTIGATIONS, reviewed in the clinical context: August 27: White count 7.8 hemoglobin 7 platelets 92 August 25: White count 7.6 hemoglobin 8.5 potassium 3.7 BUN 65 creatinine 4.96 August 24, 2024: White count 13.7 hemoglobin 8.5 platelets 142 sodium 142 potassium 4.5 BUN [address] scan abdomen pelvis from [place]: Ventral hernia with herniation of small bowel loops. Mild distention of bowel loops proximal to the hernia may represent low-grade small bowel obstruction with transition point at the hernia. Nodular contour of the liver possible cirrhosis. Patchy opacity lung bases possibly atelectasis/infection. Assessment plan: -Acute small bowel obstruction in the ventral hernia of the abdomen.: No natalya rrhea no abdominal pain no nausea vomiting since Friday. August 25: Dr Spencer repair of small bowel obstruction with incarcerated in the ventral hernia. Removal of mesh. Lysis of additions -Chronic congestive heart failure from diastolic dysfunction EF 55 to 60%. Mild to moderate MR. Follow fluid status Cardiology following -Hyperlipidemia Pravachol -Acute postprocedure blood loss anemia expected from surgery: Not improved Third unit of blood ordered -Chronic kidney disease stage IV secondary diabetic kidney disease. Nephrology following -Diabetes mellitus type 2, chronically on insulin Tresiba 40 units a day. Accu-Cheks with sliding scale insulin -Metabolic acidosis secondary to chronic kidney disease IV bicarbonate -Anemia of chronic kidney disease -Hypothyroid Synthroid 100 mcg a day -Essential hypertension Amlodipine 10 mg a day. Coreg. -Depression Wellbutrin SR, Cymbalta, BuSpar nuclear -Morbid obesity BMI 45.2 Ozempic -Chronic medical debility. Nonambulatory. Does use a wheelchair. Third unit of blood ordered. Bicarbonate drip. IV Zosyn. Past Medical History Past Medical History: Heart Failure, Diabetes Mellitus, GERD/Reflux, Hypertension, Osteoarthritis (OA), Renal Disease Additional Past Medical History / Comment(s): morbid obesity,HF, Neuropathy bilateral legs Type 2 diabetes mellitus,Chronic venous stasis with dermatosis and pedal edema chronic, enterobacteria and enterococal wound infection 2018 History of Any Multi-Drug Resistant Organisms: Other MDRO Past Surgical History: Adenoidectomy, Section, Cholecystectomy, Hernia Repair, Hysterectomy, Orthopedic Surgery, Tonsillectomy Additional Past Surgical History / Comment(s): carple tunnel sx right hand, Partial small bowel resection with ventral hernia incarceration Past Anesthesia/Blood Transfusion Reactions: No Reported Reaction Past Psychological History: Depression Smoking Status: Former smoker Past Alcohol Use History: None Reported Past Drug Use History: None Reported
--- NOTE | 2024-08-27 18:19 | P.GSCN ---
History of Present Illness Consult date: 08/27/24 History of present illness: Patient is a 59-year-old female with multiple medical problems including recent surgical intervention forSmall bowel obstruction hernia. In her time in the hospital she had worsening renal function and a permacath has been recommended. She denies any history of dialysis. She has 1 time history of a "port "in her right neck but she thinks it was for antibiotics. It was many years ago. Past Medical History Past Medical History: Heart Failure, Diabetes Mellitus, GERD/Reflux, Hypertension, Osteoarthritis (OA), Renal Disease Additional Past Medical History / Comment(s): morbid obesity,HF, Neuropathy bilateral legs Type 2 diabetes mellitus,Chronic venous stasis with dermatosis and pedal edema chronic, enterobacteria and enterococal wound infection 2018 History of Any Multi-Drug Resistant Organisms: Other MDRO Past Surgical History: Adenoidectomy, Section, Cholecystectomy, Hernia Repair, Hysterectomy, Orthopedic Surgery, Tonsillectomy Additional Past Surgical History / Comment(s): carple tunnel sx right hand, Partial small bowel resection with ventral hernia incarceration Past Anesthesia/Blood Transfusion Reactions: No Reported Reaction Past Psychological History: Depression Smoking Status: Former smoker Past Alcohol Use History: None Reported Past Drug Use History: None Reported - Past Family History Mother Family Medical History: Asthma, Myocardial Infarction ([place]) Father Family Medical History: Asthma, Cancer Sister(s) Family Medical History: Asthma, Deep Vein Thrombosis (DVT) Medications and Allergies Home Medications Medication Instructions Recorded Confirmed Type Pravastatin Sodium [Pravachol] 20 mg PO HS 01/29/18 08/23/24 History Insulin Degludec [Tresiba 40 units SQ DAILY 12/26/21 08/23/24 History Flextouch U-200 Pen] Semaglutide [Ozempic] 1 mg SQ Q7DAYS 12/26/21 08/23/24 History DULoxetine HCL [Cymbalta] 60 mg PO DAILY 11/29/23 08/23/24 History Ergocalciferol (Vitamin D2) 2,500 mcg PO Q7D 11/29/23 08/23/24 History [Drisdol (50,000 Iu)] busPIRone HCl [Buspar] 5 mg PO BID 11/29/23 08/23/24 History Brimonidine Tartrate [Alphagan P 1 drops LEFT EYE BID 08/23/24 08/23/24 History 0.2% Ophth Soln] Finerenone [Kerendia] 10 mg PO DAILY 08/23/24 08/23/24 History Gabapentin [Neurontin] 100 mg PO DAILY 08/23/24 08/23/24 History Insulin Lispro See Protocol SQ AC-TID 08/23/24 08/23/24 History Levothyroxine Sodium [Synthroid] 100 mcg PO DAILY 08/23/24 08/23/24 History Sodium Bicarbonate Tab 650 mg PO BID 08/23/24 08/23/24 History buPROPion SR [Wellbutrin SR] 100 mg PO Q48H 08/23/24 08/23/24 History calcitrioL 0.5 mcg PO Q7D 08/23/24 08/23/24 History carvediloL [Coreg] 12.5 mg PO BID 08/23/24 08/23/24 History Enoxaparin [Lovenox] 30 mg SQ DAILY each 08/27/24 Rx Ferrous Sulfate [Feosol] 325 mg PO DAILY #1 tab 08/27/24 Rx INSULIN ASPART (NovoLOG) [NovoLOG 0 unit SQ ACHS each 08/27/24 Rx (formulary)] Nystatin 100,000 Unit/gm Powd 1 applic TOPICAL BID each 08/27/24 Rx [Mycostatin Powder] amLODIPine [Norvasc] 5 mg PO DAILY tab 08/27/24 Rx Allergies Allergy/AdvReac Type Severity Reaction Status Date / Time cephalexin monohydrate AdvReac Nausea & Verified 08/25/24 13:15 [From Keflex] Vomiting Surgical - Exam Vital Signs Temp Pulse Resp BP Pulse Ox 97.8 F 67 18 131/79 97 08/23/24 15:37 08/23/24 15:37 08/23/24 15:37 08/23/24 15:37 08/23/24 15:37 General Is a pleasant cooperative female in no acute distress. HEENT is normocephalic, atraumatic, excess skin on the neck. Heart appears regular. Getting blood. No respiratory distress. No significant swelling of the upper extremities. Results - Labs 08/27/24 08:58 08/27/24 04:29 Abnormal Lab Results - Last 24 Hours (Table) 08/24/24 08/26/24 08/26/24 Range/Units 14:25 18:35 18:35 RBC (3.80-5.40) m/uL Hgb (11.4-16.0) gm/dL Hct (34.0-46.0) % RDW (11.5-15.5) % Plt Count (150-450) k/uL Retic Count 4.75 H (0.10-1.80) % Sodium (135-145) mmol/L Carbon Dioxide (21.6-31.8) mmol/L Anion Gap (4.00-12.00) mmol/L BUN (9.0-27.0) mg/dL Creatinine (0.6-1.5) mg/dL Est GFR (CKD-EPI) (>=60) Glucose (70-110) mg/dL POC Glucose (mg/dL) (70-110) mg/dL Calcium (8.7-10.3) mg/dL TIBC 200 L (228-460) UG/DL % Saturation 80.00 H (12.00-45.00) Transferrin 143.0 L (204.0-354.0) mg/dL Erythropoietin (2.00-30.00) mIU/mL Total Protein (PEP) (6.2-8.2) g/dL Crossmatch See Detail 08/26/24 08/26/24 08/26/24 Range/Units 18:35 18:35 20:17 RBC (3.80-5.40) m/uL Hgb (11.4-16.0) gm/dL Hct (34.0-46.0) % RDW (11.5-15.5) % Plt Count (150-450) k/uL Retic Count (0.10-1.80) % Sodium (135-145) mmol/L Carbon Dioxide (21.6-31.8) mmol/L Anion Gap (4.00-12.00) mmol/L BUN (9.0-27.0) mg/dL Creatinine (0.6-1.5) mg/dL Est GFR (CKD-EPI) (>=60) Glucose (70-110) mg/dL POC Glucose (mg/dL) 309 H (70-110) mg/dL Calcium (8.7-10.3) mg/dL TIBC (228-460) UG/DL % Saturation (12.00-45.00) Transferrin (204.0-354.0) mg/dL Erythropoietin 618.37 H (2.00-30.00) mIU/mL Total Protein (PEP) 5.3 L (6.2-8.2) g/dL Crossmatch 08/27/24 08/27/24 08/27/24 Range/Units 04:29 04:29 07:44 RBC 2.34 L (3.80-5.40) m/uL Hgb 6.9 L* D (11.4-16.0) gm/dL Hct 21.0 L (34.0-46.0) % RDW 16.4 H (11.5-15.5) % Plt Count 100 L (150-450) k/uL Retic Count (0.10-1.80) % Sodium 134 L (135-145) mmol/L Carbon Dioxide 18.8 L (21.6-31.8) mmol/L Anion Gap 16.20 H (4.00-12.00) mmol/L BUN 70.0 H (9.0-27.0) mg/dL Creatinine 5.1 H (0.6-1.5) mg/dL Est GFR (CKD-EPI) 9 L (>=60) Glucose 232 H (70-110) mg/dL POC Glucose (mg/dL) 281 H (70-110) mg/dL Calcium 7.9 L (8.7-10.3) mg/dL TIBC (228-460) UG/DL % Saturation (12.00-45.00) Transferrin (204.0-354.0) mg/dL Erythropoietin (2.00-30.00) mIU/mL Total Protein (PEP) (6.2-8.2) g/dL Crossmatch 08/27/24 08/27/24 08/27/24 Range/Units 08:58 12:03 17:05 RBC 2.37 L (3.80-5.40) m/uL Hgb 7.0 L (11.4-16.0) gm/dL Hct 21.2 L (34.0-46.0) % RDW 16.3 H (11.5-15.5) % Plt Count 92 L (150-450) k/uL Retic Count (0.10-1.80) % Sodium (135-145) mmol/L Carbon Dioxide (21.6-31.8) mmol/L Anion Gap (4.00-12.00) mmol/L BUN (9.0-27.0) mg/dL Creatinine (0.6-1.5) mg/dL Est GFR (CKD-EPI) (>=60) Glucose (70-110) mg/dL POC Glucose (mg/dL) 333 H 346 H (70-110) mg/dL Calcium (8.7-10.3) mg/dL TIBC (228-460) UG/DL % Saturation (12.00-45.00) Transferrin (204.0-354.0) mg/dL Erythropoietin (2.00-30.00) mIU/mL Total Protein (PEP) (6.2-8.2) g/dL Crossmatch Diabetes panel 08/27/24 Range/Units 04:29 Sodium 134 L (135-145) mmol/L Potassium 4.0 (3.5-5.5) mmol/L Chloride 99 (96-109) mmol/L Carbon Dioxide 18.8 L (21.6-31.8) mmol/L BUN 70.0 H (9.0-27.0) mg/dL Creatinine 5.1 H (0.6-1.5) mg/dL Glucose 232 H (70-110) mg/dL Calcium 7.9 L (8.7-10.3) mg/dL Calcium panel 08/27/24 Range/Units 04:29 Calcium 7.9 L (8.7-10.3) mg/dL Pituitary panel 08/27/24 Range/Units 04:29 Sodium 134 L (135-145) mmol/L Potassium 4.0 (3.5-5.5) mmol/L Chloride 99 (96-109) mmol/L Carbon Dioxide 18.8 L (21.6-31.8) mmol/L BUN 70.0 H (9.0-27.0) mg/dL Creatinine 5.1 H (0.6-1.5) mg/dL Glucose 232 H (70-110) mg/dL Calcium 7.9 L (8.7-10.3) mg/dL Adrenal panel 08/27/24 Range/Units 04:29 Sodium 134 L (135-145) mmol/L Potassium 4.0 (3.5-5.5) mmol/L Chloride 99 (96-109) mmol/L Carbon Dioxide 18.8 L (21.6-31.8) mmol/L BUN 70.0 H (9.0-27.0) mg/dL Creatinine 5.1 H (0.6-1.5) mg/dL Glucose 232 H (70-110) mg/dL Calcium 7.9 L (8.7-10.3) mg/dL Assessment and Plan Assessment: Worsening renal function, request for dialysis catheter I had the pleasure of seeing Idris in consultation. She has been recommended to undergo placement of a tunneled dialysis catheter. Will plan for this tomorrow. She will be nothing to eat after drink. Risks and benefits were discussed. She seemingly understands and is willing to proceed. Plan: Plan for placement of tunneled dialysis catheter tomorrow. N.p.o. after midnig ht
--- NOTE | 2024-08-27 19:31 | P.CONS ---
History of Present Illness - Reason for Consult Consult date: 08/27/24 anemia Requesting physician: Reilly Moyer - Chief Complaint SBO - History of Present Illness Patient is a 59-year-old female who was a transfer in from [facility] for small bowel obstruction. Patient presented to the ER with intermittent symptoms of abdominal pain and vomiting for the last week and a half but symptoms began to worsen causing her to present for further evaluation. Consult placed for anemia. Upon admit hemoglobin was noted at 8.5. She has received 2 units of PRBCs since admit, hemoglobin was noted lowest at 6.3. Repeat hemoglobin was 6.9 and 7.0 today. Third unit PRBCs has been ordered. MCV 89.5. WBC 7.8, platelets 92,000. Upn trending labs patient has had chronic anemia since 2019, typically in the 8 range. Patient has a known history of CKD with creatinine typically in the 2-3 range. Today 5.1, GFR 9. Plan is for hemodialysis. Nephrology following. Patient is been started on Aranesp. Iron studies were obtained after blood transfusions, iron saturation 80%, ferritin 225, B12 846, folate 10.5. Status post exploratory laparotomy on 08/25 with small bowel obstruction noted related to incarcerated incisional hernia. At today's visit patient is reporting improvement in abdominal pain. Denies episodes of rectal bleeding and melena. Review of Systems 10 point ROS is negative except as stated in the HPI Past Medical History Past Medical History: Heart Failure, Diabetes Mellitus, GERD/Reflux, Hypertension, Osteoarthritis (OA), Renal Disease Additional Past Medical History / Comment(s): morbid obesity,HF, Neuropathy bilateral legs Type 2 diabetes mellitus,Chronic venous stasis with dermatosis and pedal edema chronic, enterobacteria and enterococal wound infection 2018 History of Any Multi-Drug Resistant Organisms: Other MDRO Past Surgical History: Adenoidectomy, Section, Cholecystectomy, Hernia Repair, Hysterectomy, Orthopedic Surgery, Tonsillectomy Additional Past Surgical History / Comment(s): carple tunnel sx right hand, Partial small bowel resection with ventral hernia incarceration Past Anesthesia/Blood Transfusion Reactions: No Reported Reaction Past Psychological History: Depression Smoking Status: Former smoker Past Alcohol Use History: None Reported Past Drug Use History: None Reported - Past Family History Mother Family Medical History: Asthma, Myocardial Infarction ([place]) Father Family Medical History: Asthma, Cancer Sister(s) Family Medical History: Asthma, Deep Vein Thrombosis (DVT) Medications and Allergies Home Medications Medication Instructions Recorded Confirmed Type Pravastatin Sodium [Pravachol] 20 mg PO HS 01/29/18 08/23/24 History Insulin Degludec [Tresiba 40 units SQ DAILY 12/26/21 08/23/24 History Flextouch U-200 Pen] Semaglutide [Ozempic] 1 mg SQ Q7DAYS 12/26/21 08/23/24 History DULoxetine HCL [Cymbalta] 60 mg PO DAILY 11/29/23 08/23/24 History Ergocalciferol (Vitamin D2) 2,500 mcg PO Q7D 11/29/23 08/23/24 History [Drisdol (50,000 Iu)] busPIRone HCl [Buspar] 5 mg PO BID 11/29/23 08/23/24 History Brimonidine Tartrate [Alphagan P 1 drops LEFT EYE BID 08/23/24 08/23/24 History 0.2% Ophth Soln] Finerenone [Kerendia] 10 mg PO DAILY 08/23/24 08/23/24 History Gabapentin [Neurontin] 100 mg PO DAILY 08/23/24 08/23/24 History Insulin Lispro See Protocol SQ AC-TID 08/23/24 08/23/24 History Levothyroxine Sodium [Synthroid] 100 mcg PO DAILY 08/23/24 08/23/24 History Sodium Bicarbonate Tab 650 mg PO BID 08/23/24 08/23/24 History buPROPion SR [Wellbutrin SR] 100 mg PO Q48H 08/23/24 08/23/24 History calcitrioL 0.5 mcg PO Q7D 08/23/24 08/23/24 History carvediloL [Coreg] 12.5 mg PO BID 08/23/24 08/23/24 History Enoxaparin [Lovenox] 30 mg SQ DAILY each 08/27/24 Rx Ferrous Sulfate [Feosol] 325 mg PO DAILY #1 tab 08/27/24 Rx INSULIN ASPART (NovoLOG) [NovoLOG 0 unit SQ ACHS each 08/27/24 Rx (formulary)] Nystatin 100,000 Unit/gm Powd 1 applic TOPICAL BID each 08/27/24 Rx [Mycostatin Powder] amLODIPine [Norvasc] 5 mg PO DAILY tab 08/27/24 Rx Allergies Allergy/AdvReac Type Severity Reaction Status Date / Time cephalexin monohydrate AdvReac Nausea & Verified 08/25/24 13:15 [From Keflex] Vomiting Physical Exam Vitals: Vital Signs Temp Pulse Pulse Resp BP BP Pulse Ox 08/27/24 12:30 97.5 F L 60 20 145/61 99 08/27/24 06:51 97.5 F L 60 20 118/57 98 08/27/24 01:13 97.5 F L 64 20 103/65 97 08/26/24 19:46 97.0 F L 69 18 103/62 93 L 08/26/24 17:11 97.8 F 57 L 17 130/72 97 08/26/24 13:51 98.1 F 68 17 130/67 95 08/26/24 13:37 98.1 F 63 17 117/65 Intake and Output 08/26/24 08/27/24 08/27/24 22:59 06:59 14:59 Intake Total 780 Output Total 200 200 Balance 580 -200 Intake: Oral 780 Blood Product 0 Rc As-1 Unit 0 [id number] Output: Urine 200 200 Other: Voiding Method Indwelling Catheter Indwelling Catheter - Constitutional General appearance: no acute distress, obese - EENT Eyes: anicteric sclerae, EOMI ENT: hearing grossly normal - Respiratory Respiratory: bilateral: CTA - Cardiovascular Rhythm: regular - Integumentary Integumentary: no cyanotic, no jaundiced - Neurologic Neurologic: CNII-XII intact - Musculoskeletal Musculoskeletal: strength equal bilaterally - Psychiatric Psychiatric: A&O x's 3 Results CBC & Chem 7: 08/27/24 08:58 08/27/24 04:29 Labs: Abnormal Lab Results - Last 24 Hours (Table) 08/24/24 08/26/24 08/26/24 Range/Units 14:25 05:57 17:16 RBC (3.80-5.40) m/uL Hgb (11.4-16.0) gm/dL Hct (34.0-46.0) % RDW (11.5-15.5) % Plt Count (150-450) k/uL Retic Count (0.10-1.80) % Sodium (135-145) mmol/L Carbon Dioxide (21.6-31.8) mmol/L Anion Gap (4.00-12.00) mmol/L BUN (9.0-27.0) mg/dL Creatinine (0.6-1.5) mg/dL Est GFR (CKD-EPI) (>=60) Glucose (70-110) mg/dL POC Glucose (mg/dL) 326 H (70-110) mg/dL Calcium (8.7-10.3) mg/dL Iron 17 L (50-170) UG/DL TIBC 209 L (228-460) UG/DL % Saturation 8.13 L (12.00-45.00) Transferrin 149.0 L (204.0-354.0) mg/dL Erythropoietin (2.00-30.00) mIU/mL Total Protein (PEP) (6.2-8.2) g/dL Crossmatch See Detail 08/26/24 08/26/24 08/26/24 Range/Units 18:35 18:35 18:35 RBC (3.80-5.40) m/uL Hgb (11.4-16.0) gm/dL Hct (34.0-46.0) % RDW (11.5-15.5) % Plt Count (150-450) k/uL Retic Count 4.75 H (0.10-1.80) % Sodium (135-145) mmol/L Carbon Dioxide (21.6-31.8) mmol/L Anion Gap (4.00-12.00) mmol/L BUN (9.0-27.0) mg/dL Creatinine (0.6-1.5) mg/dL Est GFR (CKD-EPI) (>=60) Glucose (70-110) mg/dL POC Glucose (mg/dL) (70-110) mg/dL Calcium (8.7-10.3) mg/dL Iron (50-170) UG/DL TIBC 200 L (228-460) UG/DL % Saturation 80.00 H (12.00-45.00) Transferrin 143.0 L (204.0-354.0) mg/dL Erythropoietin 618.37 H (2.00-30.00) mIU/mL Total Protein (PEP) (6.2-8.2) g/dL Crossmatch 08/26/24 08/26/24 08/27/24 Range/Units 18:35 20:17 04:29 RBC (3.80-5.40) m/uL Hgb (11.4-16.0) gm/dL Hct (34.0-46.0) % RDW (11.5-15.5) % Plt Count (150-450) k/uL Retic Count (0.10-1.80) % Sodium 134 L (135-145) mmol/L Carbon Dioxide 18.8 L (21.6-31.8) mmol/L Anion Gap 16.20 H (4.00-12.00) mmol/L BUN 70.0 H (9.0-27.0) mg/dL Creatinine 5.1 H (0.6-1.5) mg/dL Est GFR (CKD-EPI) 9 L (>=60) Glucose 232 H (70-110) mg/dL POC Glucose (mg/dL) 309 H (70-110) mg/dL Calcium 7.9 L (8.7-10.3) mg/dL Iron (50-170) UG/DL TIBC (228-460) UG/DL % Saturation (12.00-45.00) Transferrin (204.0-354.0) mg/dL Erythropoietin (2.00-30.00) mIU/mL Total Protein (PEP) 5.3 L (6.2-8.2) g/dL Crossmatch 08/27/24 08/27/24 08/27/24 Range/Units 04:29 07:44 08:58 RBC 2.34 L 2.37 L (3.80-5.40) m/uL Hgb 6.9 L* D 7.0 L (11.4-16.0) gm/dL Hct 21.0 L 21.2 L (34.0-46.0) % RDW 16.4 H 16.3 H (11.5-15.5) % Plt Count 100 L 92 L (150-450) k/uL Retic Count (0.10-1.80) % Sodium (135-145) mmol/L Carbon Dioxide (21.6-31.8) mmol/L Anion Gap (4.00-12.00) mmol/L BUN (9.0-27.0) mg/dL Creatinine (0.6-1.5) mg/dL Est GFR (CKD-EPI) (>=60) Glucose (70-110) mg/dL POC Glucose (mg/dL) 281 H (70-110) mg/dL Calcium (8.7-10.3) mg/dL Iron (50-170) UG/DL TIBC (228-460) UG/DL % Saturation (12.00-45.00) Transferrin (204.0-354.0) mg/dL Erythropoietin (2.00-30.00) mIU/mL Total Protein (PEP) (6.2-8.2) g/dL Crossmatch 08/27/24 Range/Units 12:03 RBC (3.80-5.40) m/uL Hgb (11.4-16.0) gm/dL Hct (34.0-46.0) % RDW (11.5-15.5) % Plt Count (150-450) k/uL Retic Count (0.10-1.80) % Sodium (135-145) mmol/L Carbon Dioxide (21.6-31.8) mmol/L Anion Gap (4.00-12.00) mmol/L BUN (9.0-27.0) mg/dL Creatinine (0.6-1.5) mg/dL Est GFR (CKD-EPI) (>=60) Glucose (70-110) mg/dL POC Glucose (mg/dL) 333 H (70-110) mg/dL Calcium (8.7-10.3) mg/dL Iron (50-170) UG/DL TIBC (228-460) UG/DL % Saturation (12.00-45.00) Transferrin (204.0-354.0) mg/dL Erythropoietin (2.00-30.00) mIU/mL Total Protein (PEP) (6.2-8.2) g/dL Crossmatch Assessment and Plan (1) Small bowel obstruction Current Visit: Yes Status: Acute Priority: High Code(s): K56.609 - UNSP INTESTNL OBST, UNSP TO PARTIAL VERSUS COMPLETE OBST SNOMED Code(s): 719321339 (2) ARF (acute renal failure) Current Visit: Yes Status: Acute Priority: High Code(s): N17.9 - ACUTE KIDNEY FAILURE, UNSPECIFIED SNOMED Code(s): 12897810 (3) Anemia Current Visit: Yes Status: Acute Priority: Medium Code(s): D64.9 - ANEMIA, UNSPECIFIED SNOMED Code(s): 419608239 (4) Incarcerated hernia Current Visit: Yes Status: Acute Priority: High Code(s): K46.0 - UNSP ABDOMINAL HERNIA WITH OBSTRUCTION, WITHOUT GANGRENE SNOMED Code(s): 46149763 Plan: Incarcerated hernia: Patient is a 59-year-old female who was a transfer in from [facility] for small bowel obstruction. Patient presented to the ER with intermittent symptoms of abdominal pain and vomiting for the last week and a half but symptoms began to worsen causing her to present for further evaluation. -Status post exploratory laparotomy on 08/25 with small bowel obstruction noted related to incarcerated incisional hernia -Defer surgical management to surgery team Acute on chronic kidney disease: -Patient has a known history of CKD with creatinine typically in the 2-3 range. Today 5.1, GFR 9. -Plan is to begin hemodialysis -Nephrology following Normocytic anemia, thrombocytopenia: -Upon trending labs patient has had chronic anemia since 2019, typically in the 8 range. Upon admit hemoglobin was noted at 8.5. She has received 2 units of PRBCs since admit, hemoglobin was noted lowest at 6.3. Repeat hemoglobin was 6.9 and 7.0 today. 3rd unit PRBCs has been ordered. MCV 89.5. WBC 7.8, platelets 92,000. -Patient has been started on Aranesp. -Iron studies were obtained after blood transfusion, iron saturation 80%, ferritin 225, Vitamin B12 846, folate 10.5 -Anemia secondary to CKD, superimposed by acute inflammation/recent surgery. Agree with Aranesp administration. Thrombocytopenia likely reactive -DAVID, RF negative. SPEP, immunofixation and K/L light chains pending -Continue to monitor hgb/plts, transfuse for hgb <7 or if symptomatic, and for platelets < 10,000 Doctor attests: I performed a history and physical examination of this patient, developed impression and plan of care. Discussed with dictator. I agree with dictators note, documented as a scribe.
[2024-08-27 20:12] LABS: Glucose,Whole Blood 401 mg/dL (70-110)
[2024-08-27 22:45] LABS: Glucose,Whole Blood 295 mg/dL (70-110)
[2024-08-27] MEDS: HYDROcodone/APAP 5-325MG 1 EACH TAB PO PRN (22:47)
[2024-08-28 04:09] LABS: Basophils % (A) 0 %; Eosinophils # (A) 0.4 k/uL (0-0.7); Eosinophils % (A) 4 %; HCT 24.4 % (34.0-46.0); HGB 8.4 gm/dL (11.4-16.0); Lymphocytes # (A) 2.3 k/uL (1.0-4.8); Lymphocytes % (A) 23 %; MCH 30.1 pg (25.0-35.0); MCHC 34.3 g/dL (31.0-37.0); MCV 87.7 fL (80.0-100.0); Mean Platelet Volume 10.1; Monocytes # (A) 0.7 k/uL (0-1.0); Monocytes % (A) 7 %; Neutrophils # (A) 6.1 k/uL (1.3-7.7); Neutrophils % (A) 63 %; Poikilocytosis Slight; RBC 2.78 m/uL (3.80-5.40); RDW 15.7 % (11.5-15.5); WBC 9.6 k/uL (3.8-10.6)
[2024-08-28 04:14] LABS: Platelet Count 92 k/uL (150-450)
[2024-08-28 08:44] LABS: Glucose,Whole Blood 197 mg/dL (70-110)
[2024-08-28 09:21] LABS: BUN/Creat Ratio 13.93 Ratio (12.00-20.00); Blood Urea Nitrogen 62.7 mg/dL (9.0-27.0); Calcium 7.8 mg/dL (8.7-10.3); Chloride 95 mmol/L (96-109); Glucose 185 mg/dL (70-110); Magnesium 1.7 mg/dL (1.5-2.4); Potassium 3.3 mmol/L (3.5-5.5); Sodium 132 mmol/L (135-145)
--- NOTE | 2024-08-28 10:40 | P.PN ---
Subjective Patient is seen in follow-up for chronic kidney disease. Creatinine little better at 4.5. Nonoliguric. Denies pain. Vital signs are stable. General: No acute distress. HEENT: Head exam is unremarkable. LUNGS: No audible rhonchi or wheezes. HEART: Rate and Rhythm are regular. ABDOMEN: Nontender. Abdominal binder noted. EXTREMITITES: No edema. Objective - Vital Signs Vital signs: Vital Signs Temp 98.0 F 08/28/24 08:00 Pulse 57 L 08/28/24 08:00 Resp 15 08/28/24 08:00 BP 134/68 08/28/24 08:00 Pulse Ox 96 08/28/24 08:00 FiO2 Intake & Output 08/27/24 08/28/24 08/28/24 18:59 06:59 18:59 Intake Total 1910 Output Total 800 Balance 1910 -800 Weight 112.037 kg Intake: Oral 1600 Blood Product 310 Rc Irr As1 Unit 310 [id number] Output: Urine 800 Other: Voiding Method Indwelling Catheter Bedpan # Bowel Movements 1 - Labs CBC & Chem 7: 08/28/24 03:57 08/28/24 03:57 Labs: Abnormal Lab Results - Last 24 Hours (Table) 08/24/24 08/26/24 08/27/24 Range/Units 14:25 18:35 12:03 RBC (3.80-5.40) m/uL Hgb (11.4-16.0) gm/dL Hct (34.0-46.0) % RDW (11.5-15.5) % Plt Count (150-450) k/uL Sodium (135-145) mmol/L Potassium (3.5-5.5) mmol/L Chloride (96-109) mmol/L Anion Gap (4.00-12.00) mmol/L BUN (9.0-27.0) mg/dL Creatinine (0.6-1.5) mg/dL Est GFR (CKD-EPI) (>=60) Glucose (70-110) mg/dL POC Glucose (mg/dL) 333 H (70-110) mg/dL Calcium (8.7-10.3) mg/dL Erythropoietin 618.37 H (2.00-30.00) mIU/mL Crossmatch See Detail 08/27/24 08/27/24 08/27/24 Range/Units 17:05 20:10 22:44 RBC (3.80-5.40) m/uL Hgb (11.4-16.0) gm/dL Hct (34.0-46.0) % RDW (11.5-15.5) % Plt Count (150-450) k/uL Sodium (135-145) mmol/L Potassium (3.5-5.5) mmol/L Chloride (96-109) mmol/L Anion Gap (4.00-12.00) mmol/L BUN (9.0-27.0) mg/dL Creatinine (0.6-1.5) mg/dL Est GFR (CKD-EPI) (>=60) Glucose (70-110) mg/dL POC Glucose (mg/dL) 346 H 401 H 295 H (70-110) mg/dL Calcium (8.7-10.3) mg/dL Erythropoietin (2.00-30.00) mIU/mL Crossmatch 08/28/24 08/28/24 08/28/24 Range/Units 03:57 03:57 08:42 RBC 2.78 L (3.80-5.40) m/uL Hgb 8.4 L (11.4-16.0) gm/dL Hct 24.4 L (34.0-46.0) % RDW 15.7 H (11.5-15.5) % Plt Count 92 L (150-450) k/uL Sodium 132 L (135-145) mmol/L Potassium 3.3 L (3.5-5.5) mmol/L Chloride 95 L (96-109) mmol/L Anion Gap 13.00 H (4.00-12.00) mmol/L BUN 62.7 H (9.0-27.0) mg/dL Creatinine 4.5 H (0.6-1.5) mg/dL Est GFR (CKD-EPI) 11 L (>=60) Glucose 185 H (70-110) mg/dL POC Glucose (mg/dL) 197 H (70-110) mg/dL Calcium 7.8 L (8.7-10.3) mg/dL Erythropoietin (2.00-30.00) mIU/mL Crossmatch Assessment and Plan Plan: Assessment: 1. Chronic kidney disease stage V with creatinine 4.1 in July 2024. 4.5 today. Nonoliguric. 2. Diabetes mellitus. 3. Metabolic acidosis secondary to chronic kidney disease and GI losses. On oral bicarb and bicarb drip. Better. 4. Anemia of chronic kidney disease. Iron replete. Received blood this admission. On Aranesp. 5. Hypertension with chronic kidney disease. Stable. 6. Abdominal pain possibly related to ventral hernia/bowel obstruction. Surgery following. Status post exploratory laparotomy with lysis of adhesions and repair of incarcerated incisional hernia August 25, 2024. 7. Chronic kidney disease mineral bone disease maintained on calcitriol. 8. Hypokalemia from intracellular shifting from IV bicarb. 9. Urinary retention. Guzman catheter had to be reinserted August 27, 2024 due to persistent retention. Plan: Hep-Lock IV fluids. Encouraged oral intake. Avoid nephrotoxins. Discontinued NSAIDs. Hold amlodipine for systolic blood pressure less than 120. Add Flomax. Renal replacement therapy has been discussed with the patient and she is agreeable to start. Permacath to be placed today. First treatment of hemodialysis today. Patient has seen vascular surgery outpatient and had vein mapping done. She will schedule surgery for access creation upon discharge.
[2024-08-28] MEDS: POTASSIUM CHLORIDE ER 20 MEQ TAB.ER PO STA (10:59)
[2024-08-28] MEDS: TAMSULOSIN 0.4 MG CAP.ER.24H PO SCH (10:59)
[2024-08-28 11:17] LABS: Glucose,Whole Blood 203 mg/dL (70-110)
--- NOTE | 2024-08-28 14:19 | P.PN ---
Subjective Progress Note Date: 08/28/24 CHIEF COMPLAINT: Bowel obstruction HISTORY OF PRESENT ILLNESS: The patient is a 59-year-old female status post repair of bowel obstruction. Patient currently is undergoing hemodialysis. No nausea. No moderate abdominal pain. ROS: No reports of nausea and vomiting. No fevers or chills. No new chest pain. No productive sputum. Morbid obesity, BMI 45.2. PHYSICAL EXAM: VITAL SIGNS: Reviewed CONSTITUTIONAL: Well developed and in no acute distress. EYES: Conjuctivae without sclera icterus. Extraocular movements grossly intact. HEAD, EARS, NOSE, THROAT: Moist buccal mucosa. Head is atraumatic, normocephalic. Hears conversational speech. No nasal drainage. RESPIRATORY: Non-labored respirations and equal bilateral excursions. CARDIOVASCULAR: Palpable 2+ radial pulses. ABDOMEN: Nontender. MUSCULOSKELETAL: No gross deformity of the lower extremities noted. No clubbing. No cyanosis. SKIN: Good skin turgor. Well perfused. NEUROLOGIC: Cranial nerves II through XII grossly intact. No focal or lateralizing signs. PSYCH: Appropriate affect. Alert and oriented to person, place and time. CLINICAL LABS: Reviewed. WBC normal 9.6. Hemoglobin low 8.4, anemia. Creatinine elevated 4.5 ASSESSMENT: 1. Bowel obstruction due to incisional hernia 2. Renal failure, dialysis dependent 3. Morbid obesity excess calories, BMI 45.2. PLAN: 1. Will advance diet to regular after hemodialysis and surgical intervention Objective - Vital Signs Vital signs: Vital Signs Temp 98.3 F 08/28/24 14:00 Pulse 57 L 08/28/24 08:00 Resp 18 08/28/24 14:00 BP 131/72 08/28/24 14:00 Pulse Ox 98 08/28/24 14:00 FiO2 Intake & Output 08/27/24 08/28/24 08/28/24 18:59 06:59 18:59 Intake Total 1910 Output Total 800 Balance 1910 -800 Weight 112.037 kg Intake: Oral 1600 Blood Product 310 Rc Irr As1 Unit 310 [id number] Output: Urine 800 Other: Voiding Method Indwelling Catheter Bedpan Indwelling Catheter # Bowel Movements 1 - Labs CBC & Chem 7: 08/28/24 03:57 08/28/24 03:57 Labs: Abnormal Lab Results - Last 24 Hours (Table) 0108/27/24 08/27/24 Range/Units 14:25 17:05 20:10 RBC (3.80-5.40) m/uL Hgb (11.4-16.0) gm/dL Hct (34.0-46.0) % RDW (11.5-15.5) % Plt Count (150-450) k/uL Sodium (135-145) mmol/L Potassium (3.5-5.5) mmol/L Chloride (96-109) mmol/L Anion Gap (4.00-12.00) mmol/L BUN (9.0-27.0) mg/dL Creatinine (0.6-1.5) mg/dL Est GFR (CKD-EPI) (>=60) Glucose (70-110) mg/dL POC Glucose (mg/dL) 346 H 401 H (70-110) mg/dL Calcium (8.7-10.3) mg/dL Crossmatch See Detail 08/27/24 08/28/24 08/28/24 Range/Units 22:44 03:57 03:57 RBC 2.78 L (3.80-5.40) m/uL Hgb 8.4 L (11.4-16.0) gm/dL Hct 24.4 L (34.0-46.0) % RDW 15.7 H (11.5-15.5) % Plt Count 92 L (150-450) k/uL Sodium 132 L (135-145) mmol/L Potassium 3.3 L (3.5-5.5) mmol/L Chloride 95 L (96-109) mmol/L Anion Gap 13.00 H (4.00-12.00) mmol/L BUN 62.7 H (9.0-27.0) mg/dL Creatinine 4.5 H (0.6-1.5) mg/dL Est GFR (CKD-EPI) 11 L (>=60) Glucose 185 H (70-110) mg/dL POC Glucose (mg/dL) 295 H (70-110) mg/dL Calcium 7.8 L (8.7-10.3) mg/dL Crossmatch 08/28/24 08/28/24 Range/Units 08:42 11:15 RBC (3.80-5.40) m/uL Hgb (11.4-16.0) gm/dL Hct (34.0-46.0) % RDW (11.5-15.5) % Plt Count (150-450) k/uL Sodium (135-145) mmol/L Potassium (3.5-5.5) mmol/L Chloride (96-109) mmol/L Anion Gap (4.00-12.00) mmol/L BUN (9.0-27.0) mg/dL Creatinine (0.6-1.5) mg/dL Est GFR (CKD-EPI) (>=60) Glucose (70-110) mg/dL POC Glucose (mg/dL) 197 H 203 H (70-110) mg/dL Calcium (8.7-10.3) mg/dL Crossmatch
[2024-08-28] MEDS: IV FLUID CONTINUATION 700 ML IV ONE (14:27)
[2024-08-28] MEDS: fentaNYL (PF) 50 MCG/ML 2 ML AMP IVP ONE (14:50)
[2024-08-28] MEDS: MIDAZOLAM 2 MG/2 ML VIAL IVP ONE (14:53)
[2024-08-28] MEDS: LIDOCAINE 1% INJ 10MG/ML (20 ML MDV) SQ ONE ×2 (14:53→14:58)
--- NOTE | 2024-08-28 14:54 | P.PN ---
Progress Note - Text Progress Note Date: 08/28/24 Chief Complaint: Tired I am covering for Dr. Reilly Moyer was unwell to call me this evening. 59-year-old patient, follows with . Chronic medical conditions include CHF, diabetes, GERD, hypertension, osteoarthritis, bilateral peripheral neuropathy, chronic venous stasis dermatosis. Baseline patient nonambulatory. Lives with her 3 sons. To help her with wheelchair. Patient presents abdominal pain for 1 week. Also increased vomiting. The last vomiting was 3 days ago. Also had some diarrhea. Denied any fever and chills. CT scan has shown from [facility] ventral hernia with herniation of small bowel loops. With some transition point. Plan is for patient to be n.p.o. after midnight for surgical intervention tomorrow. August 25: Patient last nausea vomiting was on Friday that is 4 days ago. Also no bowel movement since Friday. No abdominal pain. Has been passing flatus. N.p.o. except medications. Will do 2 view abdominal x-ray. August 26: Patient yesterday underwent surgery by Dr. Spencer for SBO related to incarcerated incisional hernia. Lysis of additions carried out. Excision of intraperitoneal mesh was done. Followed by repair. Pain is present. Has a binder in place. Clear liquid diet. Hemoglobin dropped to 6.3 this morning. 2 units of blood received. IV bicarbonate for metabolic acidosis from kidney dysfunction. August 27: Saw the patient this morning. Liquid diet. Passing gas.'s abdominal pain. Resting in bed. No nausea vomiting.. Hemoglobin 6.9-7.0. Some of patient's blood pressure medication not resumed. Given that we will transfuse 1 more unit of blood.. August 28: BM x 3. Getting hemodialysis today. Decreased pain. Received 1/3 unit of blood yesterday. Hemoglobin up to 8.4 now. She is pending her dialysis catheter placement, as nephrology spoke to the patient regarding renal replacement therapy.. Active Medications Acetaminophen (Acetaminophen Tab 325 Mg Tab) 650 mg PO Q6HR PRN PRN Reason: Fever and/ or Mild Pain Hydrocodone Bitart/Acetaminophen (Hydrocodone/Apap 5-325mg 1 Each Tab) 1 each PO Q4HR PRN PRN Reason: Moderate Pain (Scale 4 to 6) Last Admin: 08/27/24 22:47 Dose: 1 each Amlodipine Besylate (Amlodipine 5 Mg Tab) 5 mg PO DAILY [facility] Last Admin: 08/27/24 08:13 Dose: 5 mg Atorvastatin Calcium (Atorvastatin 40 Mg Tab) 40 mg PO HS [facility] Last Admin: 08/27/24 20:47 Dose: 40 mg Brimonidine Tartrate (Brimonidine Tartrate 0.2% Drops 5 Ml Btl) 1 drops LEFT EYE BID [facility] Last Admin: 08/28/24 09:30 Dose: 1 drops Bupropion HCl (Bupropion Sr 100 Mg Tablet.Er) 100 mg PO Q48H [facility] Last Admin: 08/27/24 20:49 Dose: 100 mg Buspirone HCl (Buspirone Hcl 5 Mg Tab) 5 mg PO BID [facility] Last Admin: 08/28/24 09:28 Dose: 5 mg Calcitriol (Calcitriol 0.25 Mcg Cap) 0.5 mcg PO Q7D [facility] Last Admin: 08/26/24 08:58 Dose: 0.5 mcg Carvedilol (Carvedilol 12.5 Mg Tab) 12.5 mg PO BID-W/MEALS [facility] Last Admin: 08/28/24 12:13 Dose: Not Given Darbepoetin Ld (Darbepoetin Ld 40 Mcg/0.4 Ml Syringe) 40 mcg SQ Q7D [facility] Last Admin: 08/27/24 13:35 Dose: 40 mcg Duloxetine HCl (Duloxetine Hcl 60 Mg Capsule.Dr) 60 mg PO DAILY [facility] Last Admin: 08/28/24 09:28 Dose: 60 mg Enoxaparin Sodium (Enoxaparin 30 Mg/0.3 Ml Syringe) 30 mg SQ DAILY [facility] Last Admin: 08/28/24 07:56 Dose: Not Given Ergocalciferol (Ergocalciferol 1,250 Mcg (50,000 Iu) Capsule) 2,500 mcg PO Q7D [facility] Last Admin: 08/26/24 08:58 Dose: 2,500 mcg Gabapentin (Gabapentin 100 Mg Cap) 100 mg PO DAILY [facility] Last Admin: 08/28/24 09:28 Dose: 100 mg Hydromorphone HCl (Hydromorphone 1 Mg/Ml 1 Ml Syringe) 1 mg IVP Q4HR PRN PRN Reason: Severe Pain (Scale 7 to 10) Last Admin: 08/26/24 18:14 Dose: 1 mg Piperacillin Sod/Tazobactam (Sod 3.375 gm/ Sodium Chloride) 100 mls @ 25 mls/hr IVPB Q12H [facility]; Protocol Last Admin: 08/28/24 06:40 Dose: 25 mls/hr Insulin Aspart (Insulin Aspart (Novolog) 100 Unit/Ml Vial) 0 unit SQ ACHS [facility]; Protocol Last Admin: 08/28/24 12:16 Dose: 4 unit Levothyroxine Sodium (Levothyroxine 100 Mcg Tab) 100 mcg PO DAILY@0630 [facility] Last Admin: 08/28/24 06:40 Dose: 100 mcg Naloxone HCl (Naloxone 0.4 Mg/Ml 1 Ml Vial) 0.2 mg IV Q2M PRN PRN Reason: Opioid Reversal Non-Formulary Medication (Finerenone [Kerendia]) 10 mg PO DAILY [facility] Last Admin: 08/28/24 09:25 Dose: Not Given Nystatin (Nystatin 100,000 Unit/Gm Powd 15 Gm) 1 applic TOPICAL BID [facility]; Protocol Last Admin: 08/28/24 09:30 Dose: 1 applic Ondansetron HCl (Ondansetron 4 Mg/2 Ml Vial) 4 mg IVP Q6HR PRN PRN Reason: Nausea And Vomiting Petrolatum (Zinc Oxide Paste (Z-Guard) 1 Applic) 1 applic TOPICAL Q2HR PRN; Protocol PRN Reason: Wound Healing Last Admin: 08/26/24 20:54 Dose: 1 applic Petrolatum (Zinc Oxide Paste (Z-Guard) 1 Applic) 1 applic TOPICAL DAILY [facility]; Protocol Last Admin: 08/28/24 09:30 Dose: 1 applic Sodium Bicarbonate (Sodium Bicarbonate Tab 650 Mg Tab) 650 mg PO BID [facility] Last Admin: 08/28/24 09:28 Dose: 650 mg Tamsulosin HCl (Tamsulosin 0.4 Mg Cap.Er.24h) 0.4 mg PO PC-BRKFST [facility] Last Admin: 08/28/24 10:59 Dose: 0.4 mg Social history: Former smoker. 3 sons help her get into a wheelchair. Lives with her 3 sons. Physical examination: VITAL SIGNS: 98.3, 18, 50, 131 x 72, 98% room air GENERAL: [BMI 45.2, reclining in bed EYES: Pupils equal. Conjunctiva nasima l. HEENT: External appearance of nose and ears normal, oral cavity grossly normal. NECK: JVD unable to assess; masses not palpable. HEART: Heart sounds are distant; no edema. LUNGS: Respiratory rate normal; distant breath sounds. ABDOMEN: Soft, dressing over incision., Abdominal binder pleated PSYCH: Alert and oriented x3; mood and affect tired a l. NEUROLOGICAL: Cranial nerves grossly intact; no facial asymmetry, decreased power l lower extremity. INVESTIGATIONS, reviewed in the clinical context: August 28: White count 9.6 hemoglobin 8.4 platelets 92 potassium 3.3 creatinine 4.5 August 27: White count 7.8 hemoglobin 7 platelets 92 August 25: White count 7.6 hemoglobin 8.5 potassium 3.7 BUN 65 creatinine 4.96 August 24, 2024: White count 13.7 hemoglobin 8.5 platelets 142 sodium 142 potassium 4.5 BUN [address] scan abdomen pelvis from [facility]: Ventral hernia with herniation of small bowel loops. Mild distention of bowel loops proximal to the hernia may represent low-grade small bowel obstruction with transition point at the hernia. Nodular contour of the liver possible cirrhosis. Patchy opacity lung bases possibly atelectasis/infection. Assessment plan: -Acute small bowel obstruction in the ventral hernia of the abdomen.: No diarrhea no abdominal pain no nausea vomiting since Friday. August 25: Dr Spencer repair of small bowel obstruction with incarcerated in the ventral hernia. Removal of mesh. Lysis of additions Diet advanced. Having bowel movements. Pain well-controlled. -Chronic congestive heart failure from diastolic dysfunction EF 55 to 60%. Mild to moderate MR. Follow fluid status Cardiology following -Hyperlipidemia Pravachol -Acute postprocedure blood loss anemia expected from surgery: Received 3 units of PRBC -Chronic kidney disease stage IV secondary diabetic kidney disease.: Progressive Patient is pending a vascular access for hemodialysis to be resumed -Diabetes mellitus type 2, chronically on insulin Tresiba 40 units a day. Accu-Cheks with sliding scale insulin -Metabolic acidosis secondary to chronic kidney disease IV bicarbonate -Anemia of chronic kidney disease -Hypothyroid Synthroid 100 mcg a day -Essential hypertension Amlodipine 10 mg a day. Coreg. -Depression Wellbutrin SR, Cymbalta, BuSpar nuclear -Morbid obesity BMI 45.2 Ozempic -Chronic medical debility. Nonambulatory. Does use a wheelchair. Pending hemodialysis access for hemodialysis to start. Diet advanced. Past Medical History Past Medical History: Heart Failure, Diabetes Mellitus, GERD/Reflux, Hypertension, Osteoarthritis (OA), Renal Disease Additional Past Medical History / Comment(s): morbid obesity,HF, Neuropathy bilateral legs Type 2 diabetes mellitus,Chronic venous stasis with dermatosis and pedal edema chronic, enterobacteria and enterococal wound infection 2018 History of Any Multi-Drug Resistant Organisms: Other MDRO Past Surgical History: Adenoidectomy, Section, Cholecystectomy, Hernia Repair, Hysterectomy, Orthopedic Surgery, Tonsillectomy Additional Past Surgical History / Comment(s): carple tunnel sx right hand, Partial small bowel resection with ventral hernia incarceration Past Anesthesia/Blood Transfusion Reactions: No Reported Reaction Past Psychological History: Depression Smoking Status: Former smoker Past Alcohol Use History: None Reported Past Drug Use History: None Reported
--- NOTE | 2024-08-28 15:11 | P.OP ---
Date of Procedure: 08/28/24 Description of Procedure: DATE OF PROCEDURE: 08/28/2024 PREOPERATIVE DIAGNOSIS: Need for dialysis PROCEDURE: 1. Ultrasound-guided right internal jugular vein access. 2. Placement of a 23 cm tunneled dialysis catheter with fluoroscopic assistance. 3. Moderate conscious sedation times 17 minutes PROCEDURE: The patient was brought to the [facility] placed in supine position. The bilateral necks were prepped and draped in usual sterile fashion. A preprocedure timeout was performed, all parties were in agreement. Using ultrasound the right internal jugular was identified. The site overlying the vein was anesthetized with 1% lidocaine plain and an access needle was used to gain access to the internal jugular vein with return of dark venous, nonpulsatile blood. Seldinger technique was used and a micro-access sheath was placed. Attention was then turned towards the tunnel. The chest wall was anesthetized with 1% lidocaine plain. A small vlad and the skin was made and the previously flushed catheter was tunneled through the anticipated location. Using Seldinger technique and fluoroscopic assistance, the 35 Glidewire was placed and the tract was serially dilated. The final tear-away sheath was left in place. The inner cannula and wire were removed. The catheter was placed in the tear-away sheath was removed in standard fashion. The catheter showed good positioning was final resting place in the cavoatrial junction. The catheter aspirated and flushed freely. The incision at the neck was reapproximated with interrupted sutures of 4-0 Vicryl. The catheter was sutured in place with 3-0 nylon. Dressings were placed. The patient was allowed to awaken from anesthesia and transferred to recovery in stable condition having tolerated the procedure well. A post procedure chest x-ray is pending
--- NOTE | 2024-08-28 15:38 | XR ---
EXAMINATION TYPE: XR chest 1V portable DATE OF EXAM: 08/28/2024 3:34 PM COMPARISON: Chest radiographs from 12/28/2020 CLINICAL INDICATION: Female, 59 years old with history of catheter placement; TECHNIQUE: XR chest 1V portable Frontal view of the chest. FINDINGS: Lungs/Pleura: There is no evidence of pleural effusion, focal consolidation, or pneumothorax. Pulmonary vascularity: Pulmonary vascular congestion. Heart/mediastinum: Cardiomediastinal silhouette is unremarkable. Musculoskeletal: No acute osseous pathology. Right central venous catheter tip in the superior cavoatrial junction. IMPRESSION: 1. Right central venous catheter with tip in appropriate position. 2. Mild pulmonary edema. [facility], , 08/28/2024 3:36 PM
[2024-08-28 16:40] LABS: Glucose,Whole Blood 143 mg/dL (70-110)
[2024-08-28 20:05] LABS: Glucose,Whole Blood 277 mg/dL (70-110)
[2024-08-28 23:04] LABS: Glucose,Whole Blood 275 mg/dL (70-110)
[2024-08-29 03:26] LABS: Anisocytosis Slight; Basophils % (A) 0 %; Eosinophils # (A) 0.5 k/uL (0-0.7); Eosinophils % (A) 6 %; HCT 25.4 % (34.0-46.0); HGB 8.5 gm/dL (11.4-16.0); Lymphocytes # (A) 2.1 k/uL (1.0-4.8); Lymphocytes % (A) 25 %; MCH 29.4 pg (25.0-35.0); MCHC 33.6 g/dL (31.0-37.0); MCV 87.3 fL (80.0-100.0); Mean Platelet Volume 9.2; Monocytes # (A) 0.6 k/uL (0-1.0); Monocytes % (A) 7 %; Neutrophils # (A) 4.9 k/uL (1.3-7.7); Neutrophils % (A) 59 %; Poikilocytosis Slight; RDW 16.4 % (11.5-15.5); WBC 8.3 k/uL (3.8-10.6)
[2024-08-29 03:36] LABS: ALT 6 U/L (4-34); AST 15 U/L (14-36); African American GFR (CKD) 16 (>60 ml/min/1.73 sqM); Albumin 2.4 g/dL (3.5-5.0); Albumin/Globulin Ratio 0.8; Alkaline Phosphatase 77 U/L (38-126); Anion Gap 7 mmol/L; Blood Urea Nitrogen 46 mg/dL (7-17); Calcium 7.7 mg/dL (8.4-10.2); Carbon Dioxide 30 mmol/L (22-30); Chloride 93 mmol/L (98-107); Glucose 196 mg/dL (74-99); Non-African American GFR(CKD) 14 (>60 ml/min/1.73 sqM); Potassium 3.6 mmol/L (3.5-5.1); Sodium 130 mmol/L (137-145); Total Bilirubin 1.1 mg/dL (0.2-1.3); Total Protein 5.4 g/dL (6.3-8.2)
[2024-08-29 03:44] LABS: Platelet Count 94 k/uL (150-450)
[2024-08-29 06:59] LABS: Glucose,Whole Blood 191 mg/dL (70-110)
--- NOTE | 2024-08-29 11:26 | P.PN ---
Subjective Patient is seen in follow-up for chronic kidney disease. Started hemodialysis August 28, 2024. No active complaints. Tolerating oral intake. Vital signs are stable. General: No acute distress. HEENT: Head exam is unremarkable. LUNGS: No audible rhonchi or wheezes. HEART: Rate and Rhythm are regular. ABDOMEN: Nontender. Abdominal binder noted. EXTREMITITES: No edema. Objective - Vital Signs Vital signs: Vital Signs Temp 98.2 F 08/29/24 07:00 Pulse 61 08/29/24 07:00 Resp 16 08/29/24 07:00 BP 128/74 08/29/24 07:00 Pulse Ox 96 08/29/24 07:00 FiO2 Intake & Output 08/28/24 08/29/24 08/29/24 18:59 06:59 18:59 Intake Total 900 240 Output Total 1500 1275 Balance -600 -1035 Intake: IV 100 Intake, IV Titration 300 Amount Dextrose 5% in Water 1, 300 000 ml @ 100 mls/hr IV . [id number] KASANDRA with Sodium Bicarb (1 Meq/ml) 150 ml Rx#:[id number] Oral 240 Hemodialysis 500 Output: Urine 1275 Hemodialysis 1000 Hemodialysis Net Amount 500 Other: Voiding Method Indwelling Catheter Indwelling Catheter # Bowel Movements 1 - Labs CBC & Chem 7: 08/29/24 03:00 08/29/24 03:00 Labs: Abnormal Lab Results - Last 24 Hours (Table) 08/28/24 08/28/24 08/28/24 Range/Units 16:39 20:02 23:02 RBC (3.80-5.40) m/uL Hgb (11.4-16.0) gm/dL Hct (34.0-46.0) % RDW (11.5-15.5) % Plt Count (150-450) k/uL Sodium (137-145) mmol/L Chloride (98-107) mmol/L BUN (7-17) mg/dL Creatinine (0.52-1.04) mg/dL Glucose (74-99) mg/dL POC Glucose (mg/dL) 143 H 277 H 275 H (70-110) mg/dL Calcium (8.4-10.2) mg/dL Total Protein (6.3-8.2) g/dL Albumin (3.5-5.0) g/dL 08/29/24 08/29/24 08/29/24 Range/Units 03:00 03:00 06:58 RBC 2.90 L (3.80-5.40) m/uL Hgb 8.5 L (11.4-16.0) gm/dL Hct 25.4 L (34.0-46.0) % RDW 16.4 H (11.5-15.5) % Plt Count 94 L (150-450) k/uL Sodium 130 L (137-145) mmol/L Chloride 93 L (98-107) mmol/L BUN 46 H (7-17) mg/dL Creatinine 3.44 H (0.52-1.04) mg/dL Glucose 196 H (74-99) mg/dL POC Glucose (mg/dL) 191 H (70-110) mg/dL Calcium 7.7 L (8.4-10.2) mg/dL Total Protein 5.4 L (6.3-8.2) g/dL Albumin 2.4 L (3.5-5.0) g/dL Assessment and Plan Plan: Assessment: 1. Chronic kidney disease stage V with creatinine 4.1 in July 2024. Started hemodialysis August 28, 2024 via permacath. 2. Diabetes mellitus. 3. Metabolic acidosis secondary to chronic kidney disease and GI losses. On oral bicarb and bicarb drip. Better. 4. Anemia of chronic kidney disease. Iron replete. Received blood this ad mission. On Aranesp. 5. Hypertension with chronic kidney disease. Stable. 6. Abdominal pain possibly related to ventral hernia/bowel obstruction. Surgery following. Status post exploratory laparotomy with lysis of adhesions and repair of incarcerated incisional hernia August 25, 2024. 7. Chronic kidney disease mineral bone disease maintained on calcitriol. 8. Hypokalemia from intracellular shifting from IV bicarb. 9. Urinary retention. Guzman catheter had to be reinserted August 27, 2024 due to persistent retention. On Flomax. Plan: Second treatment of hemodialysis tomorrow. Encouraged oral intake. Avoid nephrotoxins. Discontinued NSAIDs. Hold amlodipine for systolic blood pressure less than 120. Patient has seen vascular surgery outpatient and had vein mapping done. She shaka l schedule surgery for access creation upon discharge. Voiding trial tomorrow. Check phosphorus level.
[2024-08-29 12:03] LABS: Glucose,Whole Blood 239 mg/dL (70-110)
--- NOTE | 2024-08-29 14:54 | P.PN ---
Subjective Progress Note Date: 08/29/24 CHIEF COMPLAINT: Bowel obstruction HISTORY OF PRESENT ILLNESS: The patient is a 59-year-old female status post repair of hernia with bowel obstruction. Patient is status post placement of hemodialysis catheter yesterday. Per discussion with nursing, she started to have new bleeding today. Patient denies any abdominal pain. Hemoglobin stable. ROS: No reports of nausea and vomiting. No fevers or chills. No new chest pain. No productive sputum. Morbid obesity, BMI 45.2. PHYSICAL EXAM: VITAL SIGNS: Reviewed CONSTITUTIONAL: Well developed and in no acute distress. EYES: Conjuctivae without sclera icterus. Extraocular movements grossly intact. HEAD, EARS, NOSE, THROAT: Moist buccal mucosa. Head is atraumatic, normocephalic. Hears conversational speech. No nasal drainage. RESPIRATORY: Non-labored respirations and equal bilateral excursions. CARDIOVASCULAR: Palpable 2+ radial pulses. ABDOMEN: Dressing discontinued demonstrating minimal bright bleeding inferior portion of incision, abdominal binder not covering surgical site. I personally changed dressings placed a pressure bandage and redressed her abdominal binder over her surgical site. Patient reported improvement after placement of pressure dressing. MUSCULOSKELETAL: No gross deformity of the lower extremities noted. No clubbing. No cyanosis. SKIN: Good skin turgor. Well perfused. NEUROLOGIC: Cranial nerves II through XII grossly intact. No focal or lateralizing signs. PSYCH: Appropriate affect. Alert and oriented to person, place and time. CLINICAL LABS: Reviewed. WBC normal 8.3. Hemoglobin low 8.4, anemia, up to 8.5 today. Creatinine elevated 4.5 down to 3.4. Platelets less than 100,000. ASSESSMENT: 1. Bowel obstruction due to incisional hernia 2. Renal failure, dialysis dependent 3. Morbid obesity excess calories, BMI 45.2. 4. Bleeding from incision. 5. Thrombocytopenia. PLAN: 1. Patient has elevated abdominal binder. May need to abdominal binders to address the body habitus. 2. Hemoglobin stable. Monitor for drop in hemoglobin. Objective - Vital Signs Vital signs: Vital Signs Temp 98.7 F 08/29/24 13:26 Pulse 69 08/29/24 13:26 Resp 16 08/29/24 13:26 BP 118/74 08/29/24 13:26 Pulse Ox 97 08/29/24 13:26 FiO2 Intake & Output 08/28/24 08/29/24 08/29/24 18:59 06:59 18:59 Intake Total 900 240 Output Total 1500 1275 Balance -600 -1035 Intake: IV 100 Intake, IV Titration 300 Amount Dextrose 5% in Water 1, 300 000 ml @ 100 mls/hr IV . [id number] KASANDRA with Sodium Bicarb (1 Meq/ml) 150 ml Rx#:[id number] Oral 240 Hemodialysis 500 Output: Urine 1275 Hemodialysis 1000 Hemodialysis Net Amount 500 Other: Voiding Method Indwelling Catheter Indwelling Catheter # Bowel Movements 1 - Labs CBC & Chem 7: 08/29/24 03:00 08/29/24 03:00 Labs: Abnormal Lab Results - Last 24 Hours (Table) 08/28/24 08/28/24 08/28/24 Range/Units 16:39 20:02 23:02 RBC (3.80-5.40) m/uL Hgb (11.4-16.0) gm/dL Hct (34.0-46.0) % RDW (11.5-15.5) % Plt Count (150-450) k/uL Sodium (137-145) mmol/L Chloride (98-107) mmol/L BUN (7-17) mg/dL Creatinine (0.52-1.04) mg/dL Glucose (74-99) mg/dL POC Glucose (mg/dL) 143 H 277 H 275 H (70-110) mg/dL Calcium (8.4-10.2) mg/dL Total Protein (6.3-8.2) g/dL Albumin (3.5-5.0) g/dL 08/29/24 08/29/24 08/29/24 Range/Units 03:00 03:00 06:58 RBC 2.90 L (3.80-5.40) m/uL Hgb 8.5 L (11.4-16.0) gm/dL Hct 25.4 L (34.0-46.0) % RDW 16.4 H (11.5-15.5) % Plt Count 94 L (150-450) k/uL Sodium 130 L (137-145) mmol/L Chloride 93 L (98-107) mmol/L BUN 46 H (7-17) mg/dL Creatinine 3.44 H (0.52-1.04) mg/dL Glucose 196 H (74-99) mg/dL POC Glucose (mg/dL) 191 H (70-110) mg/dL Calcium 7.7 L (8.4-10.2) mg/dL Total Protein 5.4 L (6.3-8.2) g/dL Albumin 2.4 L (3.5-5.0) g/dL 08/29/24 Range/Units 12:02 RBC (3.80-5.40) m/uL Hgb (11.4-16.0) gm/dL Hct (34.0-46.0) % RDW (11.5-15.5) % Plt Count (150-450) k/uL Sodium (137-145) mmol/L Chloride (98-107) mmol/L BUN (7-17) mg/dL Creatinine (0.52-1.04) mg/dL Glucose (74-99) mg/dL POC Glucose (mg/dL) 239 H (70-110) mg/dL Calcium (8.4-10.2) mg/dL Total Protein (6.3-8.2) g/dL Albumin (3.5-5.0) g/dL
--- NOTE | 2024-08-29 15:57 | P.PN ---
Progress Note - Text Progress Note Date: 08/29/24 Chief Complaint: Tired I am covering for Dr. Reilly Moyer was unwell to call me this evening. 59-year-old patient, follows with . Chronic medical conditions include CHF, diabetes, GERD, hypertension, osteoarthritis, bilateral peripheral neuropathy, chronic venous stasis dermatosis. Baseline patient nonambulatory. Lives with her 3 sons. To help her with wheelchair. Patient presents abdominal pain for 1 week. Also increased vomiting. The last vomiting was 3 days ago. Also had some diarrhea. Denied any fever and chills. CT scan has shown from [place] ventral hernia with herniation of small bowel loops. With some transition point. Plan is for patient to be n.p.o. after midnight for surgical intervention tomorrow. August 25: Patient last nausea vomiting was on Friday that is 4 days ago. Also no bowel movement since Friday. No abdominal pain. Has been passing flatus. N.p.o. except medications. Will do 2 view abdominal x-ray. August 26: Patient yesterday underwent surgery by Dr. Spencer for SBO related to incarcerated incisional hernia. Lysis of additions carried out. Excision of intraperitoneal mesh was done. Followed by repair. Pain is present. Has a binder in place. Clear liquid diet. Hemoglobin dropped to 6.3 this morning. 2 units of blood received. IV bicarbonate for metabolic acidosis from kidney dysfunction. August 27: Saw the patient this morning. Liquid diet. Passing gas.'s abdominal pain. Resting in bed. No nausea vomiting.. Hemoglobin 6.9-7.0. Some of patient's blood pressure medication not resumed. Given that we will transfuse 1 more unit of blood.. August 28: BM x 3. Getting hemodialysis today. Decreased pain. Received 1/3 unit of blood yesterday. Hemoglobin up to 8.4 now. She is pending her dialysis catheter placement, as nephrology spoke to the patient regarding renal replacement therapy.. August 29: Right IJ dialysis catheter placed by Dr. Guzman yesterday. Hemodialysis yesterday. Nursing notices oozing in the dressing. Couple of been changed. General surgery team has been informed. Very small oozing at the lower third of the localized point incision site. Otherwise patient tolerating diet. Had bowel movement. Active Medications Acetaminophen (Acetaminophen Tab 325 Mg Tab) 650 mg PO Q6HR PRN PRN Reason: Fever and/ or Mild Pain Hydrocodone Bitart/Acetaminophen (Hydrocodone/Apap 5-325mg 1 Each Tab) 1 each PO Q4HR PRN PRN Reason: Moderate Pain (Scale 4 to 6) Last Admin: 08/29/24 06:14 Dose: 1 each Amlodipine Besylate (Amlodipine 5 Mg Tab) 5 mg PO DAILY [facility] Last Admin: 08/29/24 08:18 Dose: 5 mg Atorvastatin Calcium (Atorvastatin 40 Mg Tab) 40 mg PO HS [facility] Last Admin: 08/28/24 19:19 Dose: 40 mg Brimonidine Tartrate (Brimonidine Tartrate 0.2% Drops 5 Ml Btl) 1 drops LEFT EYE BID [facility] Last Admin: 08/29/24 08:19 Dose: 1 drops Bupropion HCl (Bupropion Sr 100 Mg Tablet.Er) 100 mg PO Q48H [facility] Last Admin: 08/27/24 20:49 Dose: 100 mg Buspirone HCl (Buspirone Hcl 5 Mg Tab) 5 mg PO BID [facility] Last Admin: 08/29/24 08:18 Dose: 5 mg Calcitriol (Calcitriol 0.25 Mcg Cap) 0.5 mcg PO Q7D [facility] Last Admin: 08/26/24 08:58 Dose: 0.5 mcg Carvedilol (Carvedilol 12.5 Mg Tab) 12.5 mg PO BID-W/MEALS [facility] Last Admin: 08/29/24 08:19 Dose: 12.5 mg Darbepoetin Ld (Darbepoetin Ld 40 Mcg/0.4 Ml Syringe) 40 mcg SQ Q7D [facility] Last Admin: 08/27/24 13:35 Dose: 40 mcg Duloxetine HCl (Duloxetine Hcl 60 Mg Capsule.Dr) 60 mg PO DAILY [facility] Last Admin: 08/29/24 08:18 Dose: 60 mg Enoxaparin Sodium (Enoxaparin 30 Mg/0.3 Ml Syringe) 30 mg SQ DAILY [facility] Last Admin: 08/29/24 08:18 Dose: 30 mg Ergocalciferol (Ergocalciferol 1,250 Mcg (50,000 Iu) Capsule) 2,500 mcg PO Q7D [facility] Last Admin: 08/26/24 08:58 Dose: 2,500 mcg Gabapentin (Gabapentin 100 Mg Cap) 100 mg PO DAILY [facility] Last Admin: 08/29/24 08:18 Dose: 100 mg Hydromorphone HCl (Hydromorphone 1 Mg/Ml 1 Ml Syringe) 1 mg IVP Q4HR PRN PRN Reason: Severe Pain (Scale 7 to 10) Last Admin: 08/26/24 18:14 Dose: 1 mg Piperacillin Sod/Tazobactam (Sod 3.375 gm/ Sodium Chloride) 100 mls @ 25 mls/hr IVPB Q12H [facility]; Protocol Last Admin: 08/29/24 06:10 Dose: 25 mls/hr Insulin Aspart (Insulin Aspart (Novolog) 100 Unit/Ml Vial) 0 unit SQ ACHS [facility]; Protocol Last Admin: 08/29/24 12:43 Dose: 8 unit Levothyroxine Sodium (Levothyroxine 100 Mcg Tab) 100 mcg PO DAILY@0630 [facility] Last Admin: 08/29/24 06:10 Dose: 100 mcg Naloxone HCl (Naloxone 0.4 Mg/Ml 1 Ml Vial) 0.2 mg IV Q2M PRN PRN Reason: Opioid Reversal Non-Formulary Medication (Finerenone [Kerendia]) 10 mg PO DAILY [facility] Last Admin: 08/29/24 08:28 Dose: Not Given Nystatin (Nystatin 100,000 Unit/Gm Powd 15 Gm) 1 applic TOPICAL BID [facility]; Protocol Last Admin: 08/29/24 08:19 Dose: 1 applic Ondansetron HCl (Ondansetron 4 Mg/2 Ml Vial) 4 mg IVP Q6HR PRN PRN Reason: Nausea And Vomiting Petrolatum (Zinc Oxide Paste (Z-Guard) 1 Applic) 1 applic TOPICAL Q2HR PRN; Protocol PRN Reason: Wound Healing Last Admin: 08/26/24 20:54 Dose: 1 applic Petrolatum (Zinc Oxide Paste (Z-Guard) 1 Applic) 1 applic TOPICAL DAILY [facility]; Protocol Last Admin: 08/29/24 08:19 Dose: 1 applic Sodium Bicarbonate (Sodium Bicarbonate Tab 650 Mg Tab) 650 mg PO BID [facility] Last Admin: 08/29/24 08:19 Dose: 650 mg Tamsulosin HCl (Tamsulosin 0.4 Mg Cap.Er.24h) 0.4 mg PO -BRKFST [facility] Last Admin: 08/29/24 08:18 Dose: 0.4 mg Social history: Former smoker. 3 sons help her get into a wheelchair. Lives with her 3 sons. Physical examination: VITAL SIGNS: 98.7, 69, 16, 118 x 74, 97% room air GENERAL: [BMI 45.2, reclining in bed EYES: Pupils equal. Conjunctiva nasima l. HEENT: External appearance of nose and ears normal, oral cavity grossly normal. NECK: JVD unable to assess; masses not palpable. HEART: Heart sounds are distant; no edema. LUNGS: Respiratory rate normal; distant breath sounds. ABDOMEN: Soft, midline incision with javier. Localized border with mild oozing., Abdominal binder PSYCH: Alert and oriented x3; mood and affect tired a l. NEUROLOGICAL: Cranial nerves grossly intact; no facial asymmetry, decreased power l lower extremity. INVESTIGATIONS, reviewed in the clinical context: August 29: White count 8.3 hemoglobin 8.5 platelets 94 August 28: White count 9.6 hemoglobin 8.4 platelets 92 potassium 3.3 creatinine 4.5 August 27: White count 7.8 hemoglobin 7 platelets 92 August 25: White count 7.6 hemoglobin 8.5 potassium 3.7 BUN 65 creatinine 4.96 August 24, 2024: White count 13.7 hemoglobin 8.5 platelets 142 sodium 142 potassium 4.5 BUN [address] scan abdomen pelvis from [place]: Ventral hernia with herniation of small bowel loops. Mild distention of bowel loops proximal to the hernia may represent low-grade small bowel obstruction with transition point at the hernia. Nodular contour of the liver possible cirrhosis. Patchy opacity lung bases possibly atelectasis/infection. Assessment plan: -Acute small bowel obstruction in the ventral hernia of the abdomen.: No diarrhea no abdominal pain no nausea vomiting since Friday. August 25: Dr Spencer repair of small bowel obstruction with incarcerated in the ventral hernia. Removal of mesh. Lysis of additions Diet advanced. Having bowel movements. Pain well-controlled. -Chronic congestive heart failure from diastolic dysfunction EF 55 to 60%. Mild to moderate MR. Follow fluid status Cardiology following -Hyperlipidemia Pravachol -Acute postprocedure blood loss anemia expected from surgery: Received 3 units of PRBC -Chronic kidney disease stage IV secondary diabetic kidney disease.: Progressed to end-stage kidney disease. Right IJ dialysis access catheter placed by Dr. Guzman on August 28. Hemodialysis started on Christine 18. -Diabetes mellitus type 2, chronically on insulin Tresiba 40 units a day. Accu-Cheks with sliding scale insulin -Metabolic acidosis secondary to chronic kidney disease IV bicarbonate -Anemia of chronic kidney disease -Hypothyroid Synthroid 100 mcg a day -Essential hypertension Amlodipine 10 mg a day. Coreg. -Depression Wellbutrin SR, Cymbalta, BuSpar nuclear -Morbid obesity BMI 45.2 Ozempic -Chronic medical debility. Nonambulatory. Does use a wheelchair. Nurse will reach out to the surgeon regarding small oozing at the incision site. Keep an eye on the hemoglobin. Follow Past Medical History Past Medical History: Heart Failure, Diabetes Mellitus, GERD/Reflux, Hypertension, Osteoarthritis (OA), Renal Disease Additional Past Medical History / Comment(s): morbid obesity,HF, Neuropathy bilateral legs Type 2 diabetes mellitus,Chronic venous stasis with dermatosis and pedal edema chronic, enterobacteria and enterococal wound infection 2018 History of Any Multi-Drug Resistant Organisms: Other MDRO Past Surgical History: Adenoidectomy, Section, Cholecystectomy, Hernia Repair, Hysterectomy, Orthopedic Surgery, Tonsillectomy Additional Past Surgical History / Comment(s): carple tunnel sx right hand, Partial small bowel resection with ventral hernia incarceration Past Anesthesia/Blood Transfusion Reactions: No Reported Reaction Past Psychological History: Depression Smoking Status: Former smoker Past Alcohol Use History: None Reported Past Drug Use History: None Reported
[2024-08-29 17:16] LABS: Glucose,Whole Blood 240 mg/dL (70-110)
[2024-08-29 21:13] LABS: Glucose,Whole Blood 240 mg/dL (70-110)
[2024-08-30 07:14] LABS: Glucose,Whole Blood 251 mg/dL (70-110)
--- NOTE | 2024-08-30 09:08 | P.PN ---
Subjective Progress Note Date: 08/30/24 Principal diagnosis: End stage renal disease sees need for dialysis catheter Patient is seen and examined today as a follow-up. Friday she had a tunneled dialysis catheter placed. Patient states she underwent dialysis on Friday without any complications. She is complaining of some tenderness in her neck and around site. There is no bleeding or swelling. Objective - Vital Signs Vital signs: Vital Signs Temp 98.7 F 08/30/24 07:55 Pulse 74 08/30/24 07:55 Resp 17 08/30/24 07:55 BP 133/65 08/30/24 07:55 Pulse Ox 97 08/30/24 07:55 FiO2 Intake & Output 08/29/24 08/30/24 08/30/24 18:59 06:59 18:59 Intake Total 1302 540 Output Total 700 625 Balance 602 -85 Intake: Oral 1302 540 Output: Urine 700 625 Other: Voiding Method Indwelling Catheter Indwelling Catheter # Voids 1 - Exam General appearance: The patient is alert, oriented, appears in no acute distress. HET: Head is normocephalic and atraumatic. Pupils are equal and reactive. Neck: Supple. Chest: Right chest wall with right IJ with dressing clean dry and intact. No surrounding erythema, swelling or tunneled dialysis catheter hematoma noted. Heart: Regular. Lungs: Equal expansion, normal respiratory effort. Abdomen: Soft, nontender, nondistended. Extremities: Normal skin color and turgor. Neurological: Alert and oriented. - Labs CBC & Chem 7: 08/29/24 03:00 08/29/24 03:00 Labs: Abnormal Lab Results - Last 24 Hours (Table) 08/26/24 08/29/24 08/29/24 Range/Units 18:35 12:02 17:15 POC Glucose (mg/dL) 239 H 240 H (70-110) mg/dL Methylmalonic Acid 1.03 H (<0.40) umol/L 08/29/24 08/30/24 Range/Units 21:10 07:01 POC Glucose (mg/dL) 240 H 251 H (70-110) mg/dL Methylmalonic Acid (<0.40) umol/L Assessment and Plan Assessment: 1. End-stage renal disease needing hemodialysis 2. Status post tunneled dialysis catheter placement Plan: 1. Continue hemodialysis per recommendations from nephrology 2. Patient can follow-up with vascular surgery outpatient basis as needed Thank you for this consultation, we will sign off at this time The impression and plan of care has been dictated as directed. Dr. Guzman I performed a history and examination of this patient, discussed the same with the dictator. I agree with the dictator's note ,documented as a scribe. Any additional findings or plans will be noted.
[2024-08-30 12:28] LABS: Glucose,Whole Blood 220 mg/dL (70-110)
--- NOTE | 2024-08-30 13:01 | P.PN ---
Subjective Progress Note Date: 08/30/24 SURGICAL PROGRESS NOTE CHIEF COMPLAINT: Small bowel obstruction HISTORY OF PRESENT ILLNESS: Patient is postop day #5 status post exploratory laparotomy, lysis of adhesions, excision of intraperitoneal mesh and repair of incarcerated incisional hernia. Patient is getting hemodialysis. She reports having flatus and bowel movement. Denies any nausea or vomiting. Her pain is controlled. Possible discharge to [facility]CF today. Patient did have bleeding at incision site. This has resolved. Afebrile. WBC 8.3 Hgb 8.5 platelets 94 PHYSICAL EXAM: VITAL SIGNS: Reviewed. GENERAL: Well-developed in no acute distress. ABDOMEN: Soft. Obese. Nondistended. Incision site clean dry and intact. No evidence of bleeding. NEUROLOGIC: Alert and oriented. Cranial nerves II through XII grossly intact. ASSESSMENT: 1. Small bowel obstruction related to incarcerated incisional hernia 2. Anemia 3. Chronic kidney disease PLAN: -Patient can be discharged from surgical standpoint -Continue regular diet -Incisional dressing to be changed today. Incision site to be cleaned with chlorhexidine cleanse by nursing staff. -Continue pain management Physician Anatomical Embalmer note has been reviewed by physician. Signing provider agrees with the documented findings, assessment, and plan of care. Objective - Vital Signs Vital signs: Vital Signs Temp 98.7 F 08/30/24 07:55 Pulse 74 08/30/24 07:55 Resp 17 08/30/24 07:55 BP 133/65 08/30/24 07:55 Pulse Ox 97 08/30/24 07:55 FiO2 Intake & Output 08/29/24 08/30/24 08/30/24 18:59 06:59 18:59 Intake Total 1302 540 Output Total 700 625 Balance 602 -85 Weight 112.037 kg Intake: Oral 1302 540 Output: Urine 700 625 Other: Voiding Method Indwelling Catheter Indwelling Catheter # Voids 1 - Labs CBC & Chem 7: 08/29/24 03:00 08/29/24 03:00 Labs: Abnormal Lab Results - Last 24 Hours (Table) 08/26/24 08/29/24 08/29/24 Range/Units 18:35 12:02 17:15 POC Glucose (mg/dL) 239 H 240 H (70-110) mg/dL Methylmalonic Acid 1.03 H (<0.40) umol/L 08/29/24 08/30/24 Range/Units 21:10 07:01 POC Glucose (mg/dL) 240 H 251 H (70-110) mg/dL Methylmalonic Acid (<0.40) umol/L
[2024-08-30 13:22] LABS: Albumin 2.42 g/dL (3.80-4.90); Gamma Globulin 1.29 g/dL (0.70-1.50)
[2024-08-30 13:40] LABS: Free Kappa Lt Chain Qnt, Serum 13.73 mg/dL (0.33-1.94)
[2024-08-30 14:32] LABS: Hepatitis B Surface Antigen Nonreactive (Nonreactive)
[2024-08-30 14:45] LABS: Hepatitis B Surface AB- Quant 3.5 mIU/mL
--- NOTE | 2024-08-30 14:46 | P.PN ---
Subjective Progress Note Date: 08/30/24 Principal diagnosis: anemia In follow-up today patient is laying in bed, she is receiving dialysis. She has no acute complaints, no fevers, appetite is fair, denies any bleeding. Objective - Vital Signs Vital signs: Vital Signs Temp 98.7 F 08/30/24 12:21 Pulse 68 08/30/24 12:21 Resp 17 08/30/24 12:21 BP 120/60 08/30/24 12:21 Pulse Ox 97 08/30/24 12:21 FiO2 Intake & Output 08/29/24 08/30/24 08/30/24 18:59 06:59 18:59 Intake Total 1302 540 Output Total 700 625 Balance 602 -85 Weight 112.037 kg Intake: Oral 1302 540 Output: Urine 700 625 Other: Voiding Method Indwelling Catheter Indwelling Catheter Indwelling Catheter # Voids 1 - Constitutional General appearance: Present: cooperative, no acute distress, obese - EENT Eyes: Present: anicteric sclerae, EOMI ENT: Present: hearing grossly normal - Respiratory Details: Respirations unlabored at rest - Cardiovascular Details: Skin warm to the touch, well-perfused - Neurologic Neurologic: Present: CNII-XII intact - Psychiatric Psychiatric: Present: A&O x's 3, appropriate affect, intact judgment & insight - Labs CBC & Chem 7: 08/29/24 03:00 08/29/24 03:00 Labs: Abnormal Lab Results - Last 24 Hours (Table) 08/26/24 08/26/24 08/29/24 Range/Units 18:35 18:35 17:15 POC Glucose (mg/dL) 240 H (70-110) mg/dL Albumin (PEP) 2.42 L (3.80-4.90) g/dL Duhat-5-Mwwvkaqsz 0.52 L (0.60-1.00) g/dL Methylmalonic Acid 1.03 H (<0.40) umol/L Free Arnold Line LC, Quant 13.73 H (0.33-1.94) mg/dL Free Lambda LC, Quant 12.60 H (0.57-2.63) mg/dL 08/29/24 08/30/24 08/30/24 Range/Units 21:10 07:01 12:26 POC Glucose (mg/dL) 240 H 251 H 220 H (70-110) mg/dL Albumin (PEP) (3.80-4.90) g/dL Hpbhx-0-Jlghzhefo (0.60-1.00) g/dL Methylmalonic Acid (<0.40) umol/L Free Arnold Line LC, Quant (0.33-1.94) mg/dL Free Lambda LC, Quant (0.57-2.63) mg/dL Assessment and Plan (1) Anemia Current Visit: Yes Status: Acute Priority: Medium Code(s): D64.9 - ANEMIA, UNSPECIFIED SNOMED Code(s): 658286499 (2) Thrombocytopenia Current Visit: Yes Status: Acute Priority: Medium Code(s): D69.6 - THROMBOCYTOPENIA, UNSPECIFIED SNOMED Code(s): 117862539 Plan: Normocytic anemia, thrombocytopenia -Chronic anemia since 2019, baseline 8 range. Iron saturation status post 1 unit of PRBCs was 8.13. Iron saturation was 80% after 2 units of PRBCs. Ferritin still rather low considering 2 units of blood. Iron saturation needs to be greater than 24 Aranesp. Parenteral iron has been ordered. -Patient has been started on Aranesp. -Anemia secondary to CKD, superimposed by acute inflammation/recent surgery. Agree with Aranesp administration. -DAVID, RF negative. SPEP no M spike, immunofixation pending, and K/L light chains elevated with a normal ratio, most consistent with kidney disease -Transfuse for hgb <7 or if symptomatic -Thrombocytopenia likely reactive, stable at 94,000 today. Okay for DVT prophylaxis or antiplatelet therapies if needed. Acute on chronic kidney disease: -Patient has a known history of CKD with creatinine typically in the 2-3 range. -Hemodialysis started, Cr improving -Nephrology following
[2024-08-30] MEDS: SODIUM FERRIC GLUCONAT-SUCROSE 125 MG in SODIUM CHLORIDE 0.9% 100 ML IVPB SCH (15:46)
--- NOTE | 2024-08-30 16:11 | P.PN ---
Subjective Patient is seen in follow-up for chronic kidney disease. Started hemodialysis August 28, 2024. No active complaints. Tolerating oral intake. Tolerating dialysis well. Wants to go home. Vital signs are stable. General: No acute distress. HEENT: Head exam is unremarkable. LUNGS: No audible rhonchi or wheezes. HEART: Rate and Rhythm are regular. ABDOMEN: Nontender. EXTREMITITES: No edema. Objective - Vital Signs Vital signs: Vital Signs Temp 98.7 F 08/30/24 12:21 Pulse 68 08/30/24 12:21 Resp 17 08/30/24 12:21 BP 120/60 08/30/24 12:21 Pulse Ox 97 08/30/24 12:21 FiO2 Intake & Output 08/29/24 08/30/24 08/30/24 18:59 06:59 18:59 Intake Total 1302 540 Output Total 700 625 Balance 602 -85 Weight 112.037 kg Intake: Oral 1302 540 Output: Urine 700 625 Other: Voiding Method Indwelling Catheter Indwelling Catheter Indwelling Catheter # Voids 1 - Labs CBC & Chem 7: 08/29/24 03:00 08/29/24 03:00 Labs: Abnormal Lab Results - Last 24 Hours (Table) 08/24/24 08/26/24 08/26/24 Range/Units 14:25 18:35 18:35 POC Glucose (mg/dL) (70-110) mg/dL Albumin (PEP) 2.42 L (3.80-4.90) g/dL Zmorn-4-Jfmedtmca 0.52 L (0.60-1.00) g/dL Methylmalonic Acid 1.03 H (<0.40) umol/L Free Robbins LC, Quant 13.73 H (0.33-1.94) mg/dL Free Lambda LC, Quant 12.60 H (0.57-2.63) mg/dL Crossmatch See Detail 08/29/24 08/29/24 08/30/24 Range/Units 17:15 21:10 07:01 POC Glucose (mg/dL) 240 H 240 H 251 H (70-110) mg/dL Albumin (PEP) (3.80-4.90) g/dL Fjtsr-0-Isrlxcrvs (0.60-1.00) g/dL Methylmalonic Acid (<0.40) umol/L Free Robbins LC, Quant (0.33-1.94) mg/dL Free Lambda LC, Quant (0.57-2.63) mg/dL Crossmatch 08/30/24 Range/Units 12:26 POC Glucose (mg/dL) 220 H (70-110) mg/dL Albumin (PEP) (3.80-4.90) g/dL Soily-0-Eipqotkka (0.60-1.00) g/dL Methylmalonic Acid (<0.40) umol/L Free Robbins LC, Quant (0.33-1.94) mg/dL Free Lambda LC, Quant (0.57-2.63) mg/dL Crossmatch Assessment and Plan Plan: Assessment: 1. Chronic kidney disease stage V with creatinine 4.1 in July 2024. Started hemodialysis August 28, 2024 via permacath. 2. Diabetes mellitus. 3. Metabolic acidosis secondary to chronic kidney disease and GI losses. Statu s post bicarb drip. Improved. 4. Anemia of chronic kidney disease. Iron replete. Received blood this admission. On Aranesp. 5. Hypertension with chronic kidney disease. Controlled. 6. Abdominal pain possibly related to ventral hernia/bowel obstruction. Surgery following. Status post exploratory laparotomy with lysis of adhesions and repair of incarcerated incisional hernia August 25, 2024. 7. Chronic kidney disease mineral bone disease maintained on calcitriol. 8. Hypokalemia from intracellular shifting from IV bicarb. 9. Urinary retention. Guzman catheter had to be reinserted August 27, 2024 due to persistent retention. On Flomax. Plan: Currently seen while undergoing hemodialysis. Encouraged oral intake. Avoid nephrotoxins. Discontinued NSAIDs. Hold amlodipine for systolic blood pressure less than 120. Patient has seen vascular surgery outpatient and had vein mapping done. She will schedule surgery for access creation upon discharge. Voiding trial today. Phosphorus level 4.1 dated August 29, 2024. resort manager to set up outpatient hemodialysis
--- NOTE | 2024-08-30 18:01 | P.DS ---
Providers Date of admission: 08/23/24 19:43 Expected date of discharge: 08/30/24 (Left AMA) Attending physician: Ori Sarkar Consults: 08/23/24 17:55 Consult Physician Urgent Consulting Provider: Elder Spencer Consult Reason/Comments: Small bowel obstruction Do you want consulting provider notified?: Yes 08/25/24 08:41 Consult Physician Routine Consulting Provider: Caesar Medley Consult Reason/Comments: CKD Do you want consulting provider notified?: Yes 08/26/24 12:02 Consult Physician Routine Consulting Provider: Daniel Paul Consult Reason/Comments: anemia, hbg 6.3 after procedure Do you want consulting provider notified?: Yes 08/27/24 15:10 Consult Physician Routine Consulting Provider: Yesi Guzman Consult Reason/Comments: Pcath Placement Do you want consulting provider notified?: Yes Primary care physician: Jessica Arora MD Hospital Course: Chief Complaint: Tired I am covering for Dr. Reilly Moyer was unwell to call me this evening. 59-year-old patient, follows with . Chronic medical conditions include CHF, diabetes, GERD, hypertension, osteoarthritis, bilateral peripheral neuropathy, chronic venous stasis dermatosis. Baseline patient nonambulatory. Lives with her 3 sons. To help her with wheelchair. Patient presents abdominal pain for 1 week. Also increased vomiting. The last vomiting was 3 days ago. Also had some diarrhea. Denied any fever and chills. CT scan has shown from [place] ventral hernia with herniation of small bowel loops. With some transition point. Plan is for patient to be n.p.o. after midnight for surgical intervention tomorrow. August 25: Patient last nausea vomiting was on Friday that is 4 days ago. Also no bowel movement since Friday. No abdominal pain. Has been passing flatus. N.p.o. except medications. Will do 2 view abdominal x-ray. August 26: Patient yesterday underwent surgery by Dr. Spencer for SBO related to incarcerated incisional hernia. Lysis of additions carried out. Excision of intraperitoneal mesh was done. Followed by repair. Pain is present. Has a binder in place. Clear liquid diet. Hemoglobin dropped to 6.3 this morning. 2 units of blood received. IV bicarbonate for metabolic acidosis from kidney dysfunction. August 27: Saw the patient this morning. Liquid diet. Passing gas.'s abdominal pain. Resting in bed. No nausea vomiting.. Hemoglobin 6.9-7.0. Some of patient's blood pressure medication not resumed. Given that we will transfuse 1 more unit of blood.. August 28: BM x 3. Getting hemodialysis today. Decreased pain. Received 1/3 unit of blood yesterday. Hemoglobin up to 8.4 now. She is pending her dialysis catheter placement, as nephrology spoke to the patient regarding renal replacement therapy.. August 29: Right IJ dialysis catheter placed by Dr. Guzman yesterday. Hemodialysis yesterday. Nursing notices oozing in the dressing. Couple of been changed. General surgery team has been informed. Very small oozing at the lower third of the localized point incision site. Otherwise patient tolerating diet. Had bowel movement. August 30: Hemodialysis today. 1 L removed. Spoke to social work coordinator. Change I will not be available at least until tomorrow. Patient very keen to go home explained to her that we need to make sure that she has at a time before she was discharged. Spoke at length with patient the [id number] and the son at the bedside. Patient still insisting. Finally she is leaving AMA. Told her my concern about if chair time is unavailable, it is safer to be here. Discussion and discharge planning more than 35 minutes Social history: Former smoker. 3 sons help her get into a wheelchair. Lives with her 3 sons. Physical examination: VITAL SIGNS: 98.7, 68, 17, 120 x 60, 97% room air GENERAL: [BMI 45.2, resting EYES: Pupils equal. Conjunctiva nasima l. HEENT: External appearance of nose and ears normal, oral cavity grossly normal. NECK: JVD unable to assess; masses not palpable. HEART: Heart sounds are distant; no edema. LUNGS: Respiratory rate normal; distant breath sounds. ABDOMEN: Soft, midline incision with javier. Localized border with mild oozing., Abdominal binder PSYCH: Alert and oriented x3; mood and affect tired a l. NEUROLOGICAL: Cranial nerves grossly intact; no facial asymmetry, decreased power l lower extremity. INVESTIGATIONS, reviewed in the clinical context: August 29: White count 8.3 hemoglobin 8.5 platelets 94 August 28: White count 9.6 hemoglobin 8.4 platelets 92 potassium 3.3 creatinine 4.5 August 27: White count 7.8 hemoglobin 7 platelets 92 August 25: White count 7.6 hemoglobin 8.5 potassium 3.7 BUN 65 creatinine 4.96 August 24, 2024: White count 13.7 hemoglobin 8.5 platelets 142 sodium 142 potassium 4.5 BUN [address] scan abdomen pelvis from [place]: Ventral hernia with herniation of small bowel loops. Mild distention of bowel loops proximal to the hernia may represent low-grade small bowel obstruction with transition point at the hernia. Nodular contour of the liver possible cirrhosis. Patchy opacity lung bases p ossibly atelectasis/infection. Assessment plan: -Acute small bowel obstruction in the ventral hernia of the abdomen.: No diarrhea no abdominal pain no nausea vomiting since Friday. August 25: Dr Spencer repair of small bowel obstruction with incarcerated in the ventral hernia. Removal of mesh. Lysis of additions Diet advanced. Having bowel movements. Pain well-controlled. -Chronic congestive heart failure from diastolic dysfunction EF 55 to 60%. Mild to moderate MR. Follow fluid status Cardiology following -Hyperlipidemia Pravachol -Acute postprocedure blood loss anemia expected from surgery: Received 3 units of PRBC -Chronic kidney disease stage IV secondary diabetic kidney disease.: Progressed to end-stage kidney disease. Right IJ dialysis access catheter placed by Dr. Guzman on August 28. Hemodialysis started on August 28. Pending chair time -Diabetes mellitus type 2, chronically on insulin Tresiba 40 units a day. Accu-Cheks with sliding scale insulin -Metabolic acidosis secondary to chronic kidney disease IV bicarbonate -Anemia of chronic kidney disease -Hypothyroid Synthroid 100 mcg a day -Essential hypertension Amlodipine 10 mg a day. Coreg. -Depression Wellbutrin SR, Cymbalta, BuSpar nuclear -Morbid obesity BMI 45.2 Ozempic -Chronic medical debility. Nonambulatory. Does use a wheelchair. Disposition: Patient left AMA with family Past Medical History Past Medical History: Heart Failure, Diabetes Mellitus, GERD/Reflux, Hypertension, Osteoarthritis (OA), Renal Disease Additional Past Medical History / Comment(s): morbid obesity,HF, Neuropathy bilateral legs Type 2 diabetes mellitus,Chronic venous stasis with dermatosis and pedal edema chronic, enterobacteria and enterococal wound infection 2018 History of Any Multi-Drug Resistant Organisms: Other MDRO Past Surgical History: Adenoidectomy, Section, Cholecystectomy, Hernia Repair, Hysterectomy, Orthopedic Surgery, Tonsillectomy Additional Past Surgical History / Comment(s): carple tunnel sx right hand, Partial small bowel resection with ventral hernia incarceration Past Anesthesia/Blood Transfusion Reactions: No Reported Reaction Past Psychological History: Depression Smoking Status: Former smoker Past Alcohol Use History: None Reported Past Drug Use History: None Reported Plan - Discharge Summary Discharge Rx Participant: No New Discharge Prescriptions: New Enoxaparin [Lovenox] 30 mg SQ DAILY each amLODIPine [Norvasc] 5 mg PO DAILY tab Ferrous Sulfate [Feosol] 325 mg PO DAILY #1 tab Nystatin 100,000 Unit/gm Powd [Mycostatin Powder] 1 applic TOPICAL BID each INSULIN ASPART (NovoLOG) [NovoLOG (formulary)] 0 unit SQ ACHS each HYDROcodone/APAP 5-325MG [[place] 5-325] 1 tab PO Q6HR PRN 3 Days #12 tab PRN Reason: Pain Continue Pravastatin Sodium [Pravachol] 20 mg PO HS Semaglutide [Ozempic] 1 mg SQ Q7DAYS Insulin Degludec [Tresiba Flextouch U-200 Pen] 40 units SQ DAILY busPIRone HCl [Buspar] 5 mg PO BID Ergocalciferol (Vitamin D2) [Drisdol (50,000 Iu)] 2,500 mcg PO Q7D Sodium Bicarbonate Tab 650 mg PO BID DULoxetine HCL [Cymbalta] 60 mg PO DAILY Levothyroxine Sodium [Synthroid] 100 mcg PO DAILY calcitrioL 0.5 mcg PO Q7D Brimonidine Tartrate [Alphagan P 0.2% [facility]] 1 drops LEFT EYE BID Insulin Lispro See Protocol SQ AC-TID carvediloL [Coreg] 12.5 mg PO BID buPROPion SR [Wellbutrin SR] 100 mg PO Q48H Gabapentin [Neurontin] 100 mg PO DAILY Finerenone [Kerendia] 10 mg PO DAILY Discontinued amLODIPine [Norvasc] 10 mg PO DAILY Furosemide [Lasix] 40 mg PO BID #60 tablet Discharge Medication List Pravastatin Sodium [Pravachol] 20 mg PO HS 01/29/18 [History] Insulin Degludec [Tresiba Flextouch U-200 Pen] 40 units SQ DAILY 12/26/21 [History] Semaglutide [Ozempic] 1 mg SQ Q7DAYS 12/26/21 [History] DULoxetine HCL [Cymbalta] 60 mg PO DAILY 11/29/23 [History] Ergocalciferol (Vitamin D2) [Drisdol (50,000 Iu)] 2,500 mcg PO Q7D 11/29/23 [History] busPIRone HCl [Buspar] 5 mg PO BID 11/29/23 [History] Brimonidine Tartrate [Alphagan P 0.2% Ophth Soln] 1 drops LEFT EYE BID 08/23/24 [History] Finerenone [Kerendia] 10 mg PO DAILY 08/23/24 [History] Gabapentin [Neurontin] 100 mg PO DAILY 08/23/24 [History] Insulin Lispro See Protocol SQ AC-TID 08/23/24 [History] Levothyroxine Sodium [Synthroid] 100 mcg PO DAILY 08/23/24 [History] Sodium Bicarbonate Tab 650 mg PO BID 08/23/24 [History] buPROPion SR [Wellbutrin SR] 100 mg PO Q48H 08/23/24 [History] calcitrioL 0.5 mcg PO Q7D 08/23/24 [History] carvediloL [Coreg] 12.5 mg PO BID 08/23/24 [History] Enoxaparin [Lovenox] 30 mg SQ DAILY each 08/27/24 [Rx] Ferrous Sulfate [Feosol] 325 mg PO DAILY #1 tab 08/27/24 [Rx] INSULIN ASPART (NovoLOG) [NovoLOG (formulary)] 0 unit SQ ACHS each 08/27/24 [Rx] Nystatin 100,000 Unit/gm Powd [Mycostatin Powder] 1 applic TOPICAL BID each 08/27/24 [Rx] amLODIPine [Norvasc] 5 mg PO DAILY tab 08/27/24 [Rx] HYDROcodone/APAP 5-325MG [[place] 5-325] 1 tab PO Q6HR PRN 3 Days #12 tab 08/30/24 [Rx] Follow up Appointment(s)/Referral(s): Yesi Guzman DO [STAFF PHYSICIAN] - As Needed Elder Spencer MD [STAFF PHYSICIAN] - 1 Week Activity/Diet/Wound Care/Special Instructions: No driving while taking [place] No lifting over 10 pounds Shower daily. No soaking or tub baths for 2 weeks Very light activity until you are reevaluated at your follow up appointment with your surgeon
[2024-08-31 17:55] VITALS: BP 109/54; PULSE 59; RESP 18; TEMP 98.8
== END 2024-08-30 18:07 | disposition left against medical advice (07) | DRG 335 ==
LOC: EC 15:33 → 4SSUR 19:43 → 1SOBS 08-24 10:31 → 5NMEDONC 08-24 16:17
PROVIDERS: ADMIT Hospitalist; ATTEND Hospitalist
PROC: 30233N1 Transfusion of Nonautologous Red Blood Cells into Peripheral Vein, Percutaneous Approach (ICD-10-PCS; 2024-08-24)
PROC: 0WQF0ZZ Repair Abdominal Wall, Open Approach (ICD-10-PCS; principal; 2024-08-25 10:00)
PROC: 0DNW0ZZ Release Peritoneum, Open Approach (ICD-10-PCS; principal; 2024-08-25 10:00)
PROC: 0WPF0JZ Removal of Synthetic Substitute from Abdominal Wall, Open Approach (ICD-10-PCS; principal; 2024-08-25 10:00)
PROC: 5A1D70Z Performance of Urinary Filtration, Intermittent, Less than 6 Hours Per Day (ICD-10-PCS; 2024-08-28 10:41)
PROC: 02HV33Z Insertion of Infusion Device into Superior Vena Cava, Percutaneous Approach (ICD-10-PCS; 2024-08-29)
PROC: 0JH63XZ Insertion of Tunneled Vascular Access Device into Chest Subcutaneous Tissue and Fascia, Percutaneous Approach (ICD-10-PCS; 2024-08-29)
DX: K43.0 Incisional hernia with obstruction, without gangrene (principal); N18.6 End stage renal disease; I13.2 Hypertensive heart and chronic kidney disease with heart failure and with stage 5 chronic kidney disease, or end stage renal disease; E87.20 Acidosis, unspecified; D69.6 Thrombocytopenia, unspecified; L89.311 Pressure ulcer of right buttock, stage 1; D63.1 Anemia in chronic kidney disease; E83.9 Disorder of mineral metabolism, unspecified; Z99.2 Dependence on renal dialysis; Z68.42 Body mass index [BMI] 45.0-49.9, adult; E03.9 Hypothyroidism, unspecified; E11.22 Type 2 diabetes mellitus with diabetic chronic kidney disease; K74.60 Unspecified cirrhosis of liver; F32.A Depression, unspecified; I34.0 Nonrheumatic mitral (valve) insufficiency; N17.9 Acute kidney failure, unspecified; D62 Acute posthemorrhagic anemia; L89.321 Pressure ulcer of left buttock, stage 1; E11.42 Type 2 diabetes mellitus with diabetic polyneuropathy; E11.621 Type 2 diabetes mellitus with foot ulcer; E66.01 Morbid (severe) obesity due to excess calories; E78.5 Hyperlipidemia, unspecified; K66.0 Peritoneal adhesions (postprocedural) (postinfection); R19.7 Diarrhea, unspecified; R53.81 Other malaise; E87.6 Hypokalemia; I87.8 Other specified disorders of veins; R33.9 Retention of urine, unspecified; K21.9 Gastro-esophageal reflux disease without esophagitis; L97.522 Non-pressure chronic ulcer of other part of left foot with fat layer exposed; M19.90 Unspecified osteoarthritis, unspecified site; Z74.01 Bed confinement status; Z79.4 Long term (current) use of insulin; Z79.890 Hormone replacement therapy; Z79.899 Other long term (current) drug therapy; Z87.891 Personal history of nicotine dependence; Z79.85 Long-term (current) use of injectable non-insulin antidiabetic drugs; Z86.19 Personal history of other infectious and parasitic diseases
CPT/HCPCS: 36558; 64999; 71045; 74019; 76937; 77001; 80048; 80053; 82607; 82668; 82728; 82746; 82747; 83540; 83550; 83735; 83883; 83921; 84100; 84165; 85025; 85045; 86038; 86334; 86431; 86706; 86850; 86900; 86901; 86920; 87340; 87635; 88302; 90935; 96360; 96361; 99285